=== PATIENT | female | born 1940 | race Caucasian/White ===

== ENCOUNTER → 2019-10-28 09:41 | Outpatient (BNVA) | payer MEDICARE, OTHER, SELFPAY | PROVIDERS: Family Provider Family Medicine; PCP Family Medicine; Visit Provider Anesthesiology | DX: M25.512 Pain in left shoulder (principal); M79.602 Pain in left arm; M79.601 Pain in right arm; M50.00 Cervical disc disorder with myelopathy, unspecified cervical region; M48.061 Spinal stenosis, lumbar region without neurogenic claudication; M51.36 Other intervertebral disc degeneration, lumbar region; M54.10 Radiculopathy, site unspecified; M17.11 Unilateral primary osteoarthritis, right knee; M17.12 Unilateral primary osteoarthritis, left knee; Z79.891 Long term (current) use of opiate analgesic | CPT/HCPCS: 99214 ==

== ENCOUNTER 2019-12-05 09:48 | Outpatient (CLI) | payer MEDICARE, OTHER, SELFPAY ==
--- NOTE | 2019-12-05 09:53 | FL_ITS ---
WS: [id number] MODIFIED BARIUM SWALLOW TECHNIQUE: Modified barium swallow with speech therapy using multiple consistencies. FLUOROSCOPY TIME: 1.6 minutes. CLINICAL INFORMATION: Other dysphagia COMPARISON: None. FINDINGS: Multiple consistencies utilized. No difficulties with barium tablet. Normal oropharyngeal phase. No e vidence of aspiration or penetration. Normal barium swallow. FL/FL barium swallow modifd [id number] IMPRESSION: Normal barium swallow
== END 2019-12-05 09:49 | disposition home or self-care (01) ==
LOC: US 09:49
PROVIDERS: Family Provider Family Medicine; PCP Family Medicine; Visit Provider Specialist
DX: R13.19 Other dysphagia (principal); J37.0 Chronic laryngitis
CPT/HCPCS: 74230; 92611

== ENCOUNTER → 2019-12-16 10:52 | Outpatient (BNVA) | payer MEDICARE, OTHER, SELFPAY | PROVIDERS: Family Provider Family Medicine; PCP Family Medicine; Visit Provider Anesthesiology | DX: G89.29 Other chronic pain (principal); M25.512 Pain in left shoulder; M54.10 Radiculopathy, site unspecified; M79.601 Pain in right arm; M17.0 Bilateral primary osteoarthritis of knee; M50.00 Cervical disc disorder with myelopathy, unspecified cervical region; M48.061 Spinal stenosis, lumbar region without neurogenic claudication; M51.36 Other intervertebral disc degeneration, lumbar region; Z79.891 Long term (current) use of opiate analgesic | CPT/HCPCS: 99214 ==

== ENCOUNTER → 2020-03-03 09:51 | Outpatient (BNVA) | payer MEDICARE, OTHER, SELFPAY | PROVIDERS: Family Provider Family Medicine; PCP Family Medicine; Visit Provider Anesthesiology | DX: G89.29 Other chronic pain (principal); M48.061 Spinal stenosis, lumbar region without neurogenic claudication; M51.36 Other intervertebral disc degeneration, lumbar region; M54.9 Dorsalgia, unspecified; M54.10 Radiculopathy, site unspecified; M50.00 Cervical disc disorder with myelopathy, unspecified cervical region; M17.0 Bilateral primary osteoarthritis of knee; M79.601 Pain in right arm; M25.512 Pain in left shoulder; Z79.891 Long term (current) use of opiate analgesic | CPT/HCPCS: 99214 ==

== ENCOUNTER → 2020-04-14 09:23 | Outpatient (BNVA) | payer MEDICARE, OTHER, SELFPAY | PROVIDERS: Family Provider Family Medicine; PCP Family Medicine; Visit Provider Nurse Practitioner | DX: M54.9 Dorsalgia, unspecified (principal); M54.2 Cervicalgia; M54.10 Radiculopathy, site unspecified; Z79.891 Long term (current) use of opiate analgesic | CPT/HCPCS: 99213 ==

== ENCOUNTER → 2020-06-25 08:17 | Outpatient (BNVA) | payer MEDICARE, OTHER, SELFPAY | PROVIDERS: Family Provider Family Medicine; PCP Family Medicine; Visit Provider Nurse Practitioner | DX: G89.29 Other chronic pain (principal); M51.36 Other intervertebral disc degeneration, lumbar region; M48.061 Spinal stenosis, lumbar region without neurogenic claudication; M54.10 Radiculopathy, site unspecified; M54.9 Dorsalgia, unspecified; M17.0 Bilateral primary osteoarthritis of knee; M50.00 Cervical disc disorder with myelopathy, unspecified cervical region; M25.512 Pain in left shoulder; Z79.891 Long term (current) use of opiate analgesic | CPT/HCPCS: 99213; 99214 ==

== ENCOUNTER → 2020-09-02 08:29 | Outpatient (BNVA) | payer MEDICARE, OTHER, SELFPAY | PROVIDERS: Family Provider Family Medicine; PCP Family Medicine; Visit Provider Anesthesiology | DX: M54.9 Dorsalgia, unspecified (principal); Z79.891 Long term (current) use of opiate analgesic; M54.10 Radiculopathy, site unspecified; M79.601 Pain in right arm; M54.2 Cervicalgia; G89.29 Other chronic pain; M48.061 Spinal stenosis, lumbar region without neurogenic claudication; M51.36 Other intervertebral disc degeneration, lumbar region; M17.0 Bilateral primary osteoarthritis of knee | CPT/HCPCS: 99214 ==

== ENCOUNTER → 2020-11-02 10:54 | Outpatient (BNVA) | payer MEDICARE, OTHER, SELFPAY | PROVIDERS: Family Provider Family Medicine; PCP Family Medicine; Visit Provider Anesthesiology | DX: G89.29 Other chronic pain (principal); M50.00 Cervical disc disorder with myelopathy, unspecified cervical region; M54.10 Radiculopathy, site unspecified; M51.36 Other intervertebral disc degeneration, lumbar region; M48.061 Spinal stenosis, lumbar region without neurogenic claudication; M54.9 Dorsalgia, unspecified; M17.0 Bilateral primary osteoarthritis of knee; Z79.891 Long term (current) use of opiate analgesic | CPT/HCPCS: 99213 ==

== ENCOUNTER → 2020-12-30 09:40 | Outpatient (BNVA) | payer MEDICARE, OTHER, SELFPAY | PROVIDERS: Family Provider Family Medicine; PCP Family Medicine; Visit Provider Anesthesiology | DX: G89.29 Other chronic pain (principal); M50.00 Cervical disc disorder with myelopathy, unspecified cervical region; M25.512 Pain in left shoulder; M54.10 Radiculopathy, site unspecified; M54.9 Dorsalgia, unspecified; M17.0 Bilateral primary osteoarthritis of knee; M79.601 Pain in right arm; M48.061 Spinal stenosis, lumbar region without neurogenic claudication; M51.36 Other intervertebral disc degeneration, lumbar region; Z79.891 Long term (current) use of opiate analgesic | CPT/HCPCS: 99214 ==

== ENCOUNTER 2021-01-19 14:30 | Outpatient (CLI) | payer MEDICARE, OTHER, SELFPAY ==
--- NOTE | 2021-01-19 14:40 | XR_ITS ---
WS: [id number] Exam: XR chest 2V* [id number] Date/Time of Exam: 01/19/2021 2:42 PM Reason For Exam: cholecystitis No priors. The lungs are hyperinflated and clear. Normal cardiomediastinal structures and bony elements. No pleu ral effusions. XR/XR chest 2V* [id number] IMPRESSION: 1. Pulmonary hyperinflation. 2. No acute process.
--- NOTE | 2021-01-19 14:40 | US_ITS ---
WS: [id number] RIGHT UPPER QUADRANT ULTRASOUND HISTORY: Cholecystitis. COMPARISON: None available. Liver: 11.6 cm in length. Liver is small and shrunken. Border of the liver is irregular nodules suspi cious for cirrhosis. There are multiple cystic masses in the liver. The largest cyst measures 4.2 x 3 .6 cm in the RIGHT lobe. No solid mass or bile duct dilatation. Gallbladder: Normally distended gallbladder with no stones or wall thickening. CBD: 0.4 cm Pancreas: Tail is obscured. The remaining pancreas is negative. Right kidney: 10.6 cm in length. Normal size and echogenicity. No hydronephrosis or mass. Aorta and IVC: Unremarkable abdominal aorta and IVC. No ascites. US/US abdomen limited [id number] IMPRESSION: 1. Negative gallbladder. No stones or bile duct dilatation. 2. Numerous hepatic cysts and changes suspicious for cirrhosis.
== END 2021-01-19 14:31 | disposition home or self-care (01) ==
LOC: RAD 14:35
PROVIDERS: PCP Family Medicine; Visit Provider Family Medicine
DX: K81.9 Cholecystitis, unspecified (principal); M54.89 Other dorsalgia; K76.89 Other specified diseases of liver
CPT/HCPCS: 71046; 76705

== ENCOUNTER 2021-01-27 09:20 | Outpatient (CLI) | payer MEDICARE, OTHER, SELFPAY ==
--- NOTE | 2021-01-27 09:31 | NM_ITS ---
WS: [id number] NUCLEAR MEDICINE HIDA SCAN CLINICAL INFORMATION: CHOLECYSTITIS TECHNIQUE: Following intravenous administration of 7.4 mCi of technetium 99m mebrofenin, images of th e abdomen were obtained over the course of 60 minutes. Next, gallbladder ejection fraction was determ ined by obtaining preprandial and one-hour postprandial images of the gallbladder following oral rubin stion of Ensure. COMPARISON: Ultrasound January 19, 2021 FINDINGS: Normal hepatic uptake at 5 minutes. Common bile duct and small bowel activity is visualized. Gallblad randell is visualized by one hour. No evidence of acute cholecystitis. Gallbladder ejection fraction 99% within normal limits. No evidence of chronic cholecystitis. NM/NM hepatobiliary w phar* [id number] IMPRESSION: 1. No evidence of acute or chronic cholecystitis. 2. Normal gallbladder ejection fraction 99% within normal limits.
== END 2021-01-27 09:21 | disposition home or self-care (01) ==
LOC: RAD 09:25
PROVIDERS: PCP Family Medicine; Visit Provider Family Medicine
DX: K81.9 Cholecystitis, unspecified (principal)
CPT/HCPCS: 78227; A9537

== ENCOUNTER 2021-02-11 11:09 | Outpatient (CLI) | payer MEDICARE, OTHER, SELFPAY ==
--- NOTE | 2021-02-11 11:16 | CT_ITS ---
WS: [id number] CT scan of the abdomen with IV contrast. Additional two-dimensional coronal and sagittal reconstruct ion was performed. 02/11/2021 Clinical Data: CIRRHOSIS, LIVER Comparison: None. DLP: 802.[address] scans at [facility] use at least one of these dose optimization techniques: automat ed exposure control; mA and/or kV adjustment per patient size (includes targeted exams where dose is matched to clinical indication); or iterative reconstruction. Findings: The lower lungs show no nodules, masses or effusions. There is mitral valve calcification. The liver shows multiple cysts throughout. The largest hepatic cyst is 4.5 cm in the posterior aspect of the right lobe. The portal vein shows normal flow. The gallbladder, spleen, adrenal glands and pa ncreas are normal. The kidneys show equal bilateral contrast excretion with several cysts of the left kidney. Right kidn ey has only a few small cysts. No hydronephrosis or renal calculi are seen. No abscess, adenopathy, a scites, mass, obstruction or free air is seen. The abdominal aorta is normal in size with calcification in the wall. No appendicitis or diverticulit is is seen. The stomach, small bowel and visualized colon are unremarkable. The bones of the thorax and lumbar spine show osteoarthritic changes along with a loss of disc space at L4-L5 CT/CT abdomen w con* [id number] Impression: 1. Multiple liver cysts and multiple cysts of the kidneys, this may be a varian t of polycystic disease of the liver and kidneys. 2. Negative for acute intra-abdominal abnormalities. 2.
[2021-02-11 12:36] LABS: Blood Urea Nitrogen 10 mg/dL (8-23)
[2021-02-11] MEDS: iodixanol 320 mg/mL 100mL Btl IV (12:36)
== END 2021-02-11 11:10 | disposition home or self-care (01) ==
PROVIDERS: PCP Family Medicine; Visit Provider Family Medicine
DX: K74.60 Unspecified cirrhosis of liver (principal); K76.89 Other specified diseases of liver; Q61.02 Congenital multiple renal cysts
CPT/HCPCS: 74160; 82565; 84520; Q9967

== ENCOUNTER → 2021-03-01 10:52 | Outpatient (BNVA) | payer MEDICARE, OTHER, SELFPAY | PROVIDERS: PCP Family Medicine; Visit Provider Anesthesiology | DX: G89.29 Other chronic pain (principal); M54.9 Dorsalgia, unspecified; M50.00 Cervical disc disorder with myelopathy, unspecified cervical region; M51.36 Other intervertebral disc degeneration, lumbar region; M48.061 Spinal stenosis, lumbar region without neurogenic claudication; M54.10 Radiculopathy, site unspecified; M17.0 Bilateral primary osteoarthritis of knee; Z79.891 Long term (current) use of opiate analgesic | CPT/HCPCS: 99214 ==

== ENCOUNTER → 2021-04-26 10:17 | Outpatient (BNVA) | payer MEDICARE, OTHER, SELFPAY | PROVIDERS: PCP Family Medicine; Visit Provider Nurse Practitioner | DX: G89.29 Other chronic pain (principal); M48.061 Spinal stenosis, lumbar region without neurogenic claudication; M51.36 Other intervertebral disc degeneration, lumbar region; M50.00 Cervical disc disorder with myelopathy, unspecified cervical region; M54.10 Radiculopathy, site unspecified; M25.512 Pain in left shoulder; M17.11 Unilateral primary osteoarthritis, right knee; M17.12 Unilateral primary osteoarthritis, left knee; Z79.891 Long term (current) use of opiate analgesic | CPT/HCPCS: 99212; 99213 ==

== ENCOUNTER → 2021-07-05 10:24 | Outpatient (BNVA) | payer MEDICARE, OTHER, SELFPAY | PROVIDERS: PCP Family Medicine; Visit Provider Anesthesiology | DX: G89.29 Other chronic pain (principal); M50.00 Cervical disc disorder with myelopathy, unspecified cervical region; M48.061 Spinal stenosis, lumbar region without neurogenic claudication; M51.36 Other intervertebral disc degeneration, lumbar region; M54.10 Radiculopathy, site unspecified; K76.89 Other specified diseases of liver; Z79.891 Long term (current) use of opiate analgesic | CPT/HCPCS: 99214 ==

== ENCOUNTER → 2021-09-27 11:01 | Outpatient (BNVA) | payer MEDICARE, OTHER, SELFPAY | PROVIDERS: PCP Family Medicine; Visit Provider Anesthesiology | DX: G89.29 Other chronic pain (principal); M50.00 Cervical disc disorder with myelopathy, unspecified cervical region; M48.061 Spinal stenosis, lumbar region without neurogenic claudication; M51.36 Other intervertebral disc degeneration, lumbar region; M54.10 Radiculopathy, site unspecified; Z79.891 Long term (current) use of opiate analgesic | CPT/HCPCS: 99214 ==

== ENCOUNTER → 2022-01-02 10:39 | Outpatient (BNVA) | payer MEDICARE, OTHER, SELFPAY | PROVIDERS: PCP Family Medicine; Visit Provider Anesthesiology Pain Medicine | DX: G89.29 Other chronic pain (principal); M51.36 Other intervertebral disc degeneration, lumbar region; M48.061 Spinal stenosis, lumbar region without neurogenic claudication; M54.16 Radiculopathy, lumbar region; M50.00 Cervical disc disorder with myelopathy, unspecified cervical region; M17.0 Bilateral primary osteoarthritis of knee; Z79.891 Long term (current) use of opiate analgesic | CPT/HCPCS: 99205; 99215 ==

== ENCOUNTER → 2022-01-17 09:35 | Outpatient (BNVA) | payer MEDICARE, OTHER, SELFPAY | PROVIDERS: PCP Family Medicine; Visit Provider Anesthesiology Pain Medicine | DX: M51.36 Other intervertebral disc degeneration, lumbar region; G89.29 Other chronic pain; M48.061 Spinal stenosis, lumbar region without neurogenic claudication; M50.00 Cervical disc disorder with myelopathy, unspecified cervical region; M17.0 Bilateral primary osteoarthritis of knee; M54.10 Radiculopathy, site unspecified; M79.604 Pain in right leg; M79.605 Pain in left leg; Z79.891 Long term (current) use of opiate analgesic | CPT/HCPCS: 99214 ==

== ENCOUNTER 2022-01-19 08:37 | Outpatient (CLI) | payer MEDICARE, OTHER, SELFPAY ==
--- NOTE | 2022-01-19 09:00 | CT_ITS ---
WS: [id number] CT LUMBAR SPINE TECHNIQUE: Noncontrast CT of the lumbar spine with coronal and sagittal reformatted images. CLINICAL INFORMATION: M54.16 - Radiculopathy, lumbar region COMPARISON: CT lumbar November 20, 2013 and MRI lumbar August 18, 2014 DLP: 1546.[address] scans at [facility] use at least one of these dose optimization techniques: automated e xposure control; mA and/or kV adjustment per patient size (includes targeted exams where dose is matc hed to clinical indication); or iterative reconstruction. FINDINGS: Mild lumbar curve convex LEFT. No acute compression. Chronic interbody bony fusion L4-L5 with complet e loss of the disc space. Grade 1 anterolisthesis measuring 7 mm appears progressed compared to 2013. Prior postoperative herbert es L4-L5 Remote laminectomy LEFT L4-L5. L1-L2: LEFT foraminal protrusion with osteophytic ridging impinges the exiting LEFT L1 nerve root wit h moderate LEFT foraminal narrowing progressed from previous. Spinal canal and foramen are patent. Mi ld facet arthropathy. L2-L3: Mild disc bulging and osteophytic ridging. Moderate facet arthropathy with ligamentum flavum h ypertrophy. Moderate central canal stenosis impinges the subarticular recess. Severe LEFT and mild to moderate RIGHT foraminal narrowing. Moderate facet arthropathy. L3-L4: Shallow central disc protrusion in combination with facet arthropathy ligamentum flavum hypert rophy results in severe central canal stenosis. Moderate bilateral foraminal narrowing impinges the e xiting L3 nerve roots bilaterally. L4-L5: Grade 1 anterolisthesis. Moderate to severe central canal stenosis. Prior LEFT hemilaminectomy . Moderate RIGHT bony foraminal narrowing. LEFT foramen is patent. Moderate to advanced facet arthrop athy. L5-S1: Mild annular bulging with osteophytic ridging. Mild LEFT and no significant RIGHT foraminal na rrowing. Mild central canal stenosis. Mild facet arthropathy. Lung bases are well aerated. Adrenal glands are normal. Partially visualized Hepatic cysts. LEFT stephy l cysts partially visualized. Visualized pelvic bony structures: Normal. Paravertebral soft tissues: Normal. CT/CT lumbar spine wo con* [id number] IMPRESSION: 1. Moderate central canal stenosis L2-L3 and severe central canal stenosis L3- L4 due to disc bulging with facet arthropathy ligamentum flavum flavum hypertro phy. Moderate to severe central canal stenosis L4-L5. 2. Prior remote laminectomy LEFT L4-L5. 3. Multilevel moderate to severe bony foraminal narrowing worse at LEFT L1-L2, LEFT L2-L3, bilateral L3-L4, and RIGHT L4-L5. 4. Disc space narrowing at L1-L2, L2-L3 and L3-L4 have progressed compared to previous. Grade 1 anterolisthesis L4 on L5 measuring 7 mm has progressed.
== END 2022-01-19 08:38 | disposition home or self-care (01) ==
LOC: RAD 08:38
PROVIDERS: PCP Family Medicine; Visit Provider Anesthesiology Pain Medicine
DX: M54.16 Radiculopathy, lumbar region (principal)
CPT/HCPCS: 72131

== ENCOUNTER → 2022-02-22 09:40 | Outpatient (BNVA) | payer MEDICARE, OTHER, SELFPAY | PROVIDERS: PCP Family Medicine; Visit Provider Anesthesiology Pain Medicine | DX: G89.29 Other chronic pain (principal); M51.36 Other intervertebral disc degeneration, lumbar region; M48.061 Spinal stenosis, lumbar region without neurogenic claudication; M50.00 Cervical disc disorder with myelopathy, unspecified cervical region; M54.10 Radiculopathy, site unspecified; M17.0 Bilateral primary osteoarthritis of knee; Z79.891 Long term (current) use of opiate analgesic | CPT/HCPCS: 99214 ==

== ENCOUNTER → 2022-03-02 13:26 | Outpatient (BNVA) | payer MEDICARE, OTHER, SELFPAY | PROVIDERS: PCP Family Medicine; Visit Provider Anesthesiology Pain Medicine | DX: Z79.891 Long term (current) use of opiate analgesic (principal); M47.816 Spondylosis without myelopathy or radiculopathy, lumbar region | CPT/HCPCS: 64493; 64494; 64495; J3490 ==

== ENCOUNTER → 2022-03-16 13:35 | Outpatient (BNVA) | payer MEDICARE, OTHER, SELFPAY | PROVIDERS: PCP Family Medicine; Visit Provider Anesthesiology Pain Medicine | DX: M54.2 Cervicalgia (principal); Z79.891 Long term (current) use of opiate analgesic; M47.816 Spondylosis without myelopathy or radiculopathy, lumbar region | CPT/HCPCS: 64493; 64494; 64495; J3490 ==

== ENCOUNTER → 2022-04-04 09:26 | Outpatient (BNVA) | payer MEDICARE, OTHER, SELFPAY | PROVIDERS: PCP Family Medicine; Visit Provider Anesthesiology Pain Medicine | DX: G89.29 Other chronic pain (principal); M51.36 Other intervertebral disc degeneration, lumbar region; M48.061 Spinal stenosis, lumbar region without neurogenic claudication; M54.16 Radiculopathy, lumbar region; M50.00 Cervical disc disorder with myelopathy, unspecified cervical region; M17.0 Bilateral primary osteoarthritis of knee; M79.604 Pain in right leg; M79.605 Pain in left leg; Z79.891 Long term (current) use of opiate analgesic | CPT/HCPCS: 99214 ==

== ENCOUNTER → 2022-04-19 13:17 | Outpatient (BNVA) | payer MEDICARE, OTHER, SELFPAY | PROVIDERS: PCP Family Medicine; Visit Provider Anesthesiology Pain Medicine | DX: Z79.891 Long term (current) use of opiate analgesic (principal); M47.816 Spondylosis without myelopathy or radiculopathy, lumbar region | CPT/HCPCS: 64635; 64636; J1030 ==

== ENCOUNTER → 2022-05-08 12:54 | Outpatient (BNVA) | payer MEDICARE, OTHER, SELFPAY | PROVIDERS: PCP Family Medicine; Visit Provider Anesthesiology Pain Medicine | DX: Z79.891 Long term (current) use of opiate analgesic (principal); M47.816 Spondylosis without myelopathy or radiculopathy, lumbar region | CPT/HCPCS: 64635; 64636; J1030 ==

== ENCOUNTER → 2022-05-22 10:26 | Outpatient (BNVA) | payer MEDICARE, OTHER, SELFPAY | PROVIDERS: PCP Family Medicine; Visit Provider Anesthesiology Pain Medicine | DX: G89.29 Other chronic pain; M54.16 Radiculopathy, lumbar region; M51.36 Other intervertebral disc degeneration, lumbar region; M48.061 Spinal stenosis, lumbar region without neurogenic claudication; M50.00 Cervical disc disorder with myelopathy, unspecified cervical region; M17.0 Bilateral primary osteoarthritis of knee | CPT/HCPCS: 99214 ==

== ENCOUNTER → 2022-07-03 10:37 | Outpatient (BNVA) | payer MEDICARE, OTHER, SELFPAY | PROVIDERS: PCP Family Medicine; Visit Provider Anesthesiology Pain Medicine | DX: G89.29 Other chronic pain (principal); M51.36 Other intervertebral disc degeneration, lumbar region; M48.061 Spinal stenosis, lumbar region without neurogenic claudication; M50.00 Cervical disc disorder with myelopathy, unspecified cervical region; M54.10 Radiculopathy, site unspecified; M17.0 Bilateral primary osteoarthritis of knee | CPT/HCPCS: 99214 ==

== ENCOUNTER → 2022-07-31 11:20 | Outpatient (BNVA) | payer MEDICARE, OTHER, SELFPAY | PROVIDERS: PCP Family Medicine; Visit Provider Anesthesiology Pain Medicine | DX: G89.29 Other chronic pain (principal); M51.36 Other intervertebral disc degeneration, lumbar region; M48.061 Spinal stenosis, lumbar region without neurogenic claudication; M50.00 Cervical disc disorder with myelopathy, unspecified cervical region; M54.10 Radiculopathy, site unspecified; M17.0 Bilateral primary osteoarthritis of knee | CPT/HCPCS: 99214 ==

== ENCOUNTER → 2022-08-28 10:16 | Outpatient (BNVA) | payer MEDICARE, OTHER, SELFPAY | PROVIDERS: PCP Family Medicine; Visit Provider Anesthesiology Pain Medicine | DX: G89.29 Other chronic pain (principal); M51.36 Other intervertebral disc degeneration, lumbar region; M48.061 Spinal stenosis, lumbar region without neurogenic claudication; M50.00 Cervical disc disorder with myelopathy, unspecified cervical region; M17.0 Bilateral primary osteoarthritis of knee; M54.10 Radiculopathy, site unspecified | CPT/HCPCS: 99214 ==

== ENCOUNTER → 2022-10-05 11:42 | Outpatient (BNVA) | payer MEDICARE, OTHER, SELFPAY | PROVIDERS: PCP Family Medicine; Visit Provider Anesthesiology Pain Medicine | DX: M50.00 Cervical disc disorder with myelopathy, unspecified cervical region (principal); G89.29 Other chronic pain; M51.36 Other intervertebral disc degeneration, lumbar region; M48.061 Spinal stenosis, lumbar region without neurogenic claudication; M54.10 Radiculopathy, site unspecified; M17.11 Unilateral primary osteoarthritis, right knee; M17.12 Unilateral primary osteoarthritis, left knee; Z79.891 Long term (current) use of opiate analgesic | CPT/HCPCS: 72040; 99214 ==

== ENCOUNTER → 2022-11-02 11:12 | Outpatient (BNVA) | payer MEDICARE, OTHER, SELFPAY | PROVIDERS: PCP Family Medicine; Visit Provider Anesthesiology Pain Medicine | DX: G89.29 Other chronic pain (principal); M51.36 Other intervertebral disc degeneration, lumbar region; M48.061 Spinal stenosis, lumbar region without neurogenic claudication; M50.00 Cervical disc disorder with myelopathy, unspecified cervical region; M17.0 Bilateral primary osteoarthritis of knee; M54.10 Radiculopathy, site unspecified | CPT/HCPCS: 99214 ==

== ENCOUNTER → 2022-12-12 11:00 | Outpatient (BNVA) | payer MEDICARE, OTHER, SELFPAY | PROVIDERS: PCP Family Medicine; Visit Provider Anesthesiology Pain Medicine | DX: G89.29 Other chronic pain (principal); M51.36 Other intervertebral disc degeneration, lumbar region; M48.061 Spinal stenosis, lumbar region without neurogenic claudication; M50.00 Cervical disc disorder with myelopathy, unspecified cervical region | CPT/HCPCS: 99214 ==

== ENCOUNTER → 2022-12-18 09:19 | Outpatient (BNVA) | payer MEDICARE, OTHER, SELFPAY | PROVIDERS: PCP Family Medicine; Visit Provider Specialist | DX: G56.03 Carpal tunnel syndrome, bilateral upper limbs (principal) | CPT/HCPCS: 95910; 95912 ==

== ENCOUNTER → 2023-01-08 09:45 | Outpatient (BNVA) | payer MEDICARE, OTHER, SELFPAY | PROVIDERS: PCP Family Medicine; Visit Provider Anesthesiology Pain Medicine | DX: G89.29 Other chronic pain (principal); M51.36 Other intervertebral disc degeneration, lumbar region; M48.061 Spinal stenosis, lumbar region without neurogenic claudication; M17.0 Bilateral primary osteoarthritis of knee; M54.16 Radiculopathy, lumbar region; M50.00 Cervical disc disorder with myelopathy, unspecified cervical region | CPT/HCPCS: 99214 ==

== ENCOUNTER → 2023-01-22 13:06 | Outpatient (BNVA) | payer MEDICARE, OTHER, SELFPAY | PROVIDERS: PCP Family Medicine; Visit Provider Family Medicine | DX: G56.03 Carpal tunnel syndrome, bilateral upper limbs (principal); K74.60 Unspecified cirrhosis of liver; M51.36 Other intervertebral disc degeneration, lumbar region; M54.2 Cervicalgia; M54.9 Dorsalgia, unspecified; G89.29 Other chronic pain; Z13.6 Encounter for screening for cardiovascular disorders | CPT/HCPCS: 80053; 80061; 85025 ==

== ENCOUNTER → 2023-02-13 09:49 | Outpatient (BNVA) | payer MEDICARE, OTHER, SELFPAY | PROVIDERS: PCP Family Medicine; Visit Provider Anesthesiology Pain Medicine | DX: G89.29 Other chronic pain (principal); M51.36 Other intervertebral disc degeneration, lumbar region; M48.061 Spinal stenosis, lumbar region without neurogenic claudication; M50.00 Cervical disc disorder with myelopathy, unspecified cervical region; M54.16 Radiculopathy, lumbar region; M17.0 Bilateral primary osteoarthritis of knee | CPT/HCPCS: 99214 ==

== ENCOUNTER → 2023-03-13 10:03 | Outpatient (BNVA) | payer MEDICARE, OTHER, SELFPAY | PROVIDERS: PCP Family Medicine; Visit Provider Anesthesiology Pain Medicine | DX: G89.29 Other chronic pain (principal); M51.36 Other intervertebral disc degeneration, lumbar region; M48.061 Spinal stenosis, lumbar region without neurogenic claudication; M50.00 Cervical disc disorder with myelopathy, unspecified cervical region; M17.0 Bilateral primary osteoarthritis of knee; M54.16 Radiculopathy, lumbar region | CPT/HCPCS: 99214 ==

== ENCOUNTER → 2023-04-11 10:37 | Outpatient (BNVA) | payer MEDICARE, OTHER, SELFPAY | PROVIDERS: PCP Family Medicine; Visit Provider Anesthesiology Pain Medicine | DX: G89.29 Other chronic pain (principal); M51.36 Other intervertebral disc degeneration, lumbar region; M48.061 Spinal stenosis, lumbar region without neurogenic claudication; M50.00 Cervical disc disorder with myelopathy, unspecified cervical region; M17.0 Bilateral primary osteoarthritis of knee; M54.16 Radiculopathy, lumbar region; M47.892 Other spondylosis, cervical region; M46.92 Unspecified inflammatory spondylopathy, cervical region | CPT/HCPCS: 99213 ==

== ENCOUNTER → 2023-05-16 10:24 | Outpatient (BNVA) | payer MEDICARE, OTHER, SELFPAY | PROVIDERS: PCP Family Medicine; Visit Provider Anesthesiology Pain Medicine | DX: M50.00 Cervical disc disorder with myelopathy, unspecified cervical region (principal); G89.29 Other chronic pain; M51.36 Other intervertebral disc degeneration, lumbar region; M48.061 Spinal stenosis, lumbar region without neurogenic claudication; M17.0 Bilateral primary osteoarthritis of knee; M54.16 Radiculopathy, lumbar region | CPT/HCPCS: 99214 ==

== ENCOUNTER → 2023-05-22 08:50 | Outpatient (BNVA) | payer MEDICARE, OTHER, SELFPAY | PROVIDERS: PCP Family Medicine; Visit Provider Anesthesiology Pain Medicine | DX: M79.18 Myalgia, other site (principal); G89.29 Other chronic pain; M54.2 Cervicalgia; M51.36 Other intervertebral disc degeneration, lumbar region; M48.061 Spinal stenosis, lumbar region without neurogenic claudication; M17.0 Bilateral primary osteoarthritis of knee | CPT/HCPCS: 20553; 99214; J1030; J3490 ==

== ENCOUNTER 2023-05-25 11:38 | Outpatient (CLI) | payer MEDICARE, OTHER, SELFPAY ==
--- NOTE | 2023-05-25 11:46 | XR_ITS ---
WS: [id number] Exam: [place] [id number] Date/Time of Exam: 05/25/2023 11:46 AM Reason For Exam: M89.8X1 - Other specified disorders of bone, shoulder No fracture or dislocation noted. Degenerative change and arthrosis at the AC joint. Soft tissues are unremarkable. IMPRESSION: 1. No acute scapular fracture or dislocation. Degenerative changes at the AC joint.
== END 2023-05-25 11:39 | disposition home or self-care (01) ==
LOC: RAD 11:40
PROVIDERS: PCP Family Medicine; Visit Provider Family Medicine
DX: M89.8X1 Other specified disorders of bone, shoulder (principal); M19.012 Primary osteoarthritis, left shoulder
CPT/HCPCS: 73010

== ENCOUNTER 2023-06-07 10:40 | Outpatient (CLI) | payer MEDICARE, OTHER, SELFPAY ==
--- NOTE | 2023-06-07 11:00 | MR_ITS ---
WS: [id number] MRI CERVICAL SPINE NONCONTRAST TECHNIQUE: Sagittal T1, T2 and STIR imaging. Axial T2, gradient, and fiesta imaging. 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 COMPARISON: MRI 2014 FINDINGS: Straightening of the normal cervical lordosis with slight reversal. Moderate spondylitic changes. Dis c osteophyte complexes worse at C4-C5 and C5-C6. Cord signal is normal. C2-C3: Moderate facet arthropathy. Mild LEFT and no significant RIGHT foraminal narrowing. C3-C4: Tiny central disc protrusion. Slight contact of the cervical cord. Advanced RIGHT facet arthro jt. Severe RIGHT bony foraminal narrowing. C4-C5: Central and RIGHT paracentral disc osteophyte protrusion with indentation cervical cord. Mild central canal stenosis. Severe LEFT bony foraminal narrowing. Moderate facet arthropathy. C5-C6: Disc osteophyte complex with indentation on the cervical cord. Moderate central canal stenosis . Severe LEFT and moderate to severe RIGHT bony foraminal narrowing. Moderate facet arthropathy. C6-C7: Disc osteophyte complex with endplate ridging. Moderate central canal stenosis. Severe LEFT gr eater than RIGHT bony foraminal narrowing. Moderate facet arthropathy. C7-T1: Disc osteophyte complex with mild to moderate central canal stenosis. Moderate bilateral bony foraminal narrowing. Visualized brain stem structures: Normal. Prevertebral soft tissues: Normal. Tiny central protrusions in the upper thoracic spine at T1-2 and T2-3 Nodular RIGHT thyroid. IMPRESSION: 1. Moderate spondylitic changes with straightening and slight reversal normal cervical lordosis. 2. Moderate central canal stenosis C5-C6 and C6-C7 with slight indentation on the cervical cord. Thi s is similar in appearance to 2014. 3. Mild to moderate central canal stenosis C3-C4 and C4-C5 with small central disc osteophyte protru sions also similar to 2014. 4. Disc space narrowing at C5-C6 and C6-C7 is progressed compared to previous. 5. Multilevel moderate to severe bony foraminal narrowing worse at RIGHT C3-C4, LEFT C4-5, bilateral C5-C6 and bilateral C6-7. 6. Moderate to advanced facet arthropathy worse at RIGHT C3-C4 and RIGHT C4-C5 and moderate facet ar thropathy bilateral C5-C6.
== END 2023-06-07 10:41 | disposition home or self-care (01) ==
LOC: RAD 10:41
PROVIDERS: PCP Family Medicine; Visit Provider Anesthesiology Pain Medicine
DX: M50.020 Cervical disc disorder with myelopathy, mid-cervical region, unspecified level (principal); M25.78 Osteophyte, vertebrae; M47.13 Other spondylosis with myelopathy, cervicothoracic region; M48.03 Spinal stenosis, cervicothoracic region; E04.1 Nontoxic single thyroid nodule
CPT/HCPCS: 72141

== ENCOUNTER → 2023-06-18 09:41 | Outpatient (BNVA) | payer MEDICARE, OTHER, SELFPAY | PROVIDERS: PCP Family Medicine; Visit Provider Anesthesiology Pain Medicine | DX: G89.29 Other chronic pain; M47.812 Spondylosis without myelopathy or radiculopathy, cervical region; M48.02 Spinal stenosis, cervical region; M54.9 Dorsalgia, unspecified | CPT/HCPCS: 99214 ==

== ENCOUNTER 2023-06-29 07:53 | Outpatient (CLI) | payer MEDICARE, OTHER, SELFPAY ==
--- NOTE | 2023-06-29 08:00 | MR_ITS ---
WS: [id number] MRI left scapula with and without contrast. HISTORY: scapula pain not clinically correlated., Evaluate for medial border lesion of the scapula. COMPARISON: Scapula 05/25/2023. TECHNIQUE: Pre and postcontrast imaging is obtained through the scapula as ordered. Moderate to severe AC joint arthritis encroaching upon the supraspinatus tendon. No destructive proce ss involving the scapula. There is no area of abnormal enhancement. Moderate degenerative changes of the glenohumeral joint and surrounding the humeral head. No enhancing soft tissue masses. There is mo derate distention of the subscapularis recess. There is increased edema extending along the subscapul teri muscle and tendon. There is no signal abnormality along the medial border of the scapula. No signal abnormality within t he entire body of the scapula. This study was not protocoled to evaluate the rotator cuff or labrum. There does appear to be abnormal signal in the distal subscapularis tendon. Possible tear. No abnormal enhancement on the postcontrast imaging. IMPRESSION: 1. No signal abnormality or enhancement on the medial border of the scapula in the area of clinical c oncern. 2. Moderate to severe AC joint arthritis encroaching upon the supraspinatus tendon. 3. There is a small amount of edema in the distal subscapularis tendon and subscapularis bursal reces s fluid distention. This study was not protocoled to evaluate the rotator cuff.
[2023-06-29] MEDS: gadobenate dimeglumine 20 mL vial IV (09:07)
== END 2023-06-29 07:54 | disposition home or self-care (01) ==
LOC: RAD 07:54
PROVIDERS: PCP Family Medicine; Visit Provider Family Medicine
DX: M89.8X1 Other specified disorders of bone, shoulder (principal); M19.012 Primary osteoarthritis, left shoulder
CPT/HCPCS: 73220; 73223; A9577

== ENCOUNTER → 2023-07-18 09:55 | Outpatient (BNVA) | payer MEDICARE, OTHER, SELFPAY | PROVIDERS: PCP Family Medicine; Visit Provider Anesthesiology Pain Medicine | DX: G89.29 Other chronic pain; M48.02 Spinal stenosis, cervical region; M47.812 Spondylosis without myelopathy or radiculopathy, cervical region | CPT/HCPCS: 99214 ==

== ENCOUNTER → 2023-08-02 10:13 | Outpatient (BNVA) | payer MEDICARE, OTHER, SELFPAY | PROVIDERS: PCP Family Medicine; Referring Provider Family Medicine; Visit Provider Physician Assistant | DX: M25.512 Pain in left shoulder (principal); Z98.890 Other specified postprocedural states; M50.00 Cervical disc disorder with myelopathy, unspecified cervical region | CPT/HCPCS: 99213 ==

== ENCOUNTER → 2023-08-09 10:54 | Outpatient (BNVA) | payer MEDICARE, OTHER, SELFPAY | PROVIDERS: PCP Family Medicine; Visit Provider Anesthesiology Pain Medicine | DX: G89.29 Other chronic pain; M48.02 Spinal stenosis, cervical region; M54.50 Low back pain, unspecified; M47.812 Spondylosis without myelopathy or radiculopathy, cervical region | CPT/HCPCS: 99214 ==

== ENCOUNTER → 2023-08-21 08:46 | Outpatient (BNVA) | payer MEDICARE, OTHER, SELFPAY | PROVIDERS: PCP Family Medicine; Visit Provider Orthopaedic Surgery | DX: M25.512 Pain in left shoulder; G89.29 Other chronic pain; M48.02 Spinal stenosis, cervical region; M50.30 Other cervical disc degeneration, unspecified cervical region | CPT/HCPCS: 72050; 99214 ==

== ENCOUNTER → 2023-10-01 08:53 | Outpatient (BNVA) | payer MEDICARE, OTHER, SELFPAY | PROVIDERS: PCP Family Medicine; Visit Provider Anesthesiology Pain Medicine | DX: G89.29 Other chronic pain; M48.02 Spinal stenosis, cervical region; M47.812 Spondylosis without myelopathy or radiculopathy, cervical region; M54.9 Dorsalgia, unspecified | CPT/HCPCS: 99214 ==

== ENCOUNTER → 2023-11-01 09:16 | Outpatient (BNVA) | payer MEDICARE, OTHER, SELFPAY | PROVIDERS: PCP Family Medicine; Visit Provider Anesthesiology Pain Medicine | DX: M54.9 Dorsalgia, unspecified; G89.29 Other chronic pain; M48.02 Spinal stenosis, cervical region; M47.812 Spondylosis without myelopathy or radiculopathy, cervical region | CPT/HCPCS: 99214 ==

== ENCOUNTER → 2023-11-29 09:20 | Outpatient (BNVA) | payer MEDICARE, OTHER, SELFPAY | PROVIDERS: PCP Family Medicine; Visit Provider Anesthesiology Pain Medicine | DX: M54.9 Dorsalgia, unspecified; G89.29 Other chronic pain; M48.02 Spinal stenosis, cervical region; M47.812 Spondylosis without myelopathy or radiculopathy, cervical region | CPT/HCPCS: 99214 ==

== ENCOUNTER → 2023-12-25 15:18 | Outpatient (BNVA) | payer MEDICARE, OTHER, SELFPAY | PROVIDERS: PCP Family Medicine; Referring Provider Anesthesiology Pain Medicine; Visit Provider Specialist | DX: M25.512 Pain in left shoulder (principal); G56.00 Carpal tunnel syndrome, unspecified upper limb; G62.9 Polyneuropathy, unspecified; G89.29 Other chronic pain; M79.601 Pain in right arm; G56.03 Carpal tunnel syndrome, bilateral upper limbs; M50.00 Cervical disc disorder with myelopathy, unspecified cervical region | CPT/HCPCS: 95910 ==

== ENCOUNTER → 2023-12-27 09:13 | Outpatient (BNVA) | payer MEDICARE, OTHER, SELFPAY | PROVIDERS: PCP Family Medicine; Visit Provider Anesthesiology Pain Medicine | DX: G56.20 Lesion of ulnar nerve, unspecified upper limb (principal); M54.9 Dorsalgia, unspecified; G89.29 Other chronic pain; M48.02 Spinal stenosis, cervical region; M47.816 Spondylosis without myelopathy or radiculopathy, lumbar region | CPT/HCPCS: 99214 ==

== ENCOUNTER → 2024-02-05 09:20 | Outpatient (BNVA) | payer MEDICARE, OTHER, SELFPAY | PROVIDERS: PCP Family Medicine; Visit Provider Student in an Organized Health Care Education/Training Program | DX: G56.03 Carpal tunnel syndrome, bilateral upper limbs; G56.22 Lesion of ulnar nerve, left upper limb | CPT/HCPCS: 73130; 99213 ==

== ENCOUNTER → 2024-02-07 11:30 | Outpatient (BNVA) | payer MEDICARE, OTHER, SELFPAY | PROVIDERS: PCP Family Medicine; Visit Provider Specialist | DX: G89.29 Other chronic pain; M25.512 Pain in left shoulder; M89.8X1 Other specified disorders of bone, shoulder; G58.7 Mononeuritis multiplex | CPT/HCPCS: 95860; 95870; 99202 ==

== ENCOUNTER → 2024-02-20 09:47 | Outpatient (BNVA) | payer MEDICARE, OTHER, SELFPAY | PROVIDERS: PCP Family Medicine; Visit Provider Anesthesiology Pain Medicine | DX: M48.02 Spinal stenosis, cervical region (principal); M47.812 Spondylosis without myelopathy or radiculopathy, cervical region; G89.29 Other chronic pain | CPT/HCPCS: 99214 ==

== ENCOUNTER → 2024-03-13 10:14 | Outpatient (BNVA) | payer MEDICARE, OTHER, SELFPAY | PROVIDERS: PCP Family Medicine; Visit Provider Anesthesiology Pain Medicine | DX: M54.9 Dorsalgia, unspecified (principal); G89.29 Other chronic pain; M48.02 Spinal stenosis, cervical region; M47.812 Spondylosis without myelopathy or radiculopathy, cervical region | CPT/HCPCS: 99214 ==

== ENCOUNTER → 2024-05-09 12:45 | Outpatient (BNVA) | payer MEDICARE, OTHER, SELFPAY | PROVIDERS: PCP Family Medicine; Visit Provider Specialist | DX: G89.29 Other chronic pain; M25.512 Pain in left shoulder; M89.8X1 Other specified disorders of bone, shoulder; G58.7 Mononeuritis multiplex; M60.9 Myositis, unspecified; G62.9 Polyneuropathy, unspecified | CPT/HCPCS: 36415; 83520; 85651; 86140; 86160; 86162; 86235; 86255; 86376; 86431; 99214 ==

== ENCOUNTER 2024-05-13 11:30 | Inpatient (IN) | payer MEDICARE, OTHER, SELFPAY ==
[2024-05-13] VITALS (15 sets, daily range): BP systolic 110–161; BP diastolic 58–85; PULSE 82–117; RESP 16–20; TEMP 36.8–36.9; O2SAT 94–99; BMI 33.0
--- NOTE | 2024-05-13 11:31 | ECG_ITS ---
[facility] Test Date: 2024-05-13 Pat Name: Gita Stubbs Department: Room: Gender: Female [employer]ic: : [id number] Requested By: Vladimir Sullivan Order Number: [id number] Shruthi MD: Disha Shen M.D. Measurements Intervals [place] Rate: 109 P: 32 AK: 152 QRS: -62 QRSD: 94 T: 33 QT: 345 QTc: 466 Interpretive Statements SINUS TACHYCARDIA LOW QRS VOLTAGE IN PRECORDIAL LEADS [QRS DEFLECTION < 1.0 mV IN CHEST LEADS] LEFT ANTERIOR FASCICULAR BLOCK [QRS AXIS <= -45, QR IN I, RS IN II] POSSIBLE ANTERIOR MYOCARDIAL INFARCTION , OF INDETERMINATE AGE [30 ms Q WAVE IN V3/V4, OR R < 0.2 mV IN V4] No previous ECG available for comparison Electronically Signed On 05-13-2024 23:29:45 CDT by Disha Shen M.D. [id number] f
--- NOTE | 2024-05-13 11:31 | CT_ITS ---
WS: [id number] CT HEAD NONCONTRAST HISTORY: Symptoms of acute stroke TECHNIQUE: Contiguous axial imaging performed through the brain in 2.5 mm imaging. Bone and soft tiss ue windows. Sagittal and coronal reformats reviewed. All CT scans at [facility] use at least one of these dose optimization techniques: automated exposure control; mA and/or kV adjustment per pa tient size (includes targeted exams where dose is matched to clinical indication); or iterative recon struction. DLP: 1096.88 mGy COMPARISON: None available. Imaging artifact through the supratentorial brain. No acute intracranial hemorrhage, midline shift or mass effect. Mild atrophy and small vessel disease. Ventricles: Normal size with no hydrocephalus. No inferior displacement of the cerebellar tonsils. Paranasal sinuses: As visualized are clear. Mastoid air cells: Well pneumatized. Calvarium and scalp: Skull is intact with no soft tissue edema or swelling. Moderate calcification in the intracranial carotid arteries. CT/CT head thrombolytic [id number] IMPRESSION: 1. No acute intracranial hemorrhage or edema. 2. Mild cerebral atrophy and volume loss with mild small vessel ischemic disea se.
--- NOTE | 2024-05-13 11:35 | CT_ITS ---
WS: [id number] CT ANGIOGRAM CEREBRAL AND CAROTID ARTERIES HISTORY: cva TECHNIQUE: CT angiogram is performed of the carotid and cerebral arteries. During arterial injection imaging is obtained from the skull vertex to the aortic arch in 1.25 mm imaging. Coronal and sagittal reformats are submitted. Additional multi planar reformats of the carotid and cerebral arteries are submitted, MIP imaging also reviewed. NASCET criteria utilized. [facility] e at least one of these dose optimization techniques: automated exposure control; mA and/or kV adjust ment per patient size (includes targeted exams where dose is matched to clinical indication); or iter ative reconstruction. CONTRAST: Omnipaque 350; 100 mL IV. DLP: 481.72 mGy.cm COMPARISON: None available. Carotid Angiogram: Right carotid: Common carotid artery: Arises normally from the innominate artery. No significant plaque or stenosis. Internal carotid artery: Minimal plaque. No high-grade stenosis. External carotid artery: Patent. Left carotid: Common carotid artery: Arises normally from the aorta. No significant plaque or stenosis. Internal carotid artery: Minimal plaque. No stenosis. External carotid artery: Patent. Right vertebral artery: Unremarkable. Left vertebral artery: Dominant. No stenosis. Subclavian arteries: No stenosis or significant abnormality. Upper thorax: Normal. Thyroid gland: Mildly enlarged nodular thyroid. Most likely goiter. Osseous structures: Advanced degenerative changes and spondylosis in the cervical spine. CEREBRAL ANGIOGRAM: Intracranial vertebral arteries: Small caliber RIGHT vertebral artery but it is patent. Normal LEFT v ertebral artery. Basilar artery: No significant stenosis or occlusion. No aneurysm. Intracranial Internal carotid arteries: Moderate calcified plaque through the cavernous carotid arter ies approaching 50% stenoses. No occlusions. Middle cerebral arteries: Normal. Anterior cerebral arteries and ACOM: Normal. Posterior cerebral arteries and PCOM's: Normal posterior cerebral arteries. Hypoplastic or absent LEF T posterior communicating artery. Dural venous sinuses are normally enhancing. Mastoid air cells: Normal. Paranasal sinuses: Normal. Calvarium: Normal. CT/CT angio headneck* [id number] IMPRESSION: 1. Minimal atherosclerotic plaque in the cervical carotid arteries. No high-gr stella stenosis. 2. No aneurysms or occlusions in the [place]. 3. Moderate atherosclerotic plaque cavernous carotid arteries approaching 50% stenosis.
[2024-05-13] MEDS: iohexol 350 mg/mL 500 mL Btl (per mL) IV (11:44)
--- NOTE | 2024-05-13 11:50 | XRR_ITS ---
PROCEDURE INFORMATION: Exam: XR Chest Exam date and time: 05/13/2024 11:59 AM Age: 84 years old Clinical indication: Other: AMS TECHNIQUE: Imaging protocol: Radiologic exam of the chest. Views: 1 view. COMPARISON: CR XR chest 2V* [id number] 02/09/2023 12:11 PM FINDINGS: Lungs: No focal consolidation. Mild linear scarring peripheral left lower lung. Mild vascular prominence. Pleural spaces: Unremarkable. No pleural effusion. No pneumothorax. Heart/Mediastinum: Apparent cardiomegaly, accentuated by positioning. Bones/joints: Unremarkable. Other findings: Mild leftward rotation. Lordotic positioning. XR/XR chest 1V portable [id number] IMPRESSION: 1. The lungs are clear. 2. Apparent cardiomegaly is accentuated by positioning.
--- NOTE | 2024-05-13 11:57 | W.ED.NEUROSD ---
HPI - Neuro Symptoms/Deficit General: Chief Complaint: Neuro Symptoms/Deficit Stated Complaint: Stoke Alert Time Seen by Provider: 05/13/24 11:30 Source: EMS Mode of arrival: EMS Limitations: no limitations History of Present Illness: 84-year-old female who is here with EMS she states she has been having some increasing confusion along with weakness in her lower extremities is been going on for 3 days. States she has had multiple minor falls denies any major injuries from her fall states been having some hip pain as well. EMS did states she had some word salad with them here she is answering my questions appropriately but does get confused at times. Associated symptoms: Deny chest pain, headache(s), nausea or vomiting Related Data Home Medications Medication Instructions Recorded Confirmed ibuprofen 200 mg tablet (Motrin IB) 200 mg PO BID PRN Pain 10/28/19 05/13/24 clopidogrel 75 mg tablet 75 mg PO DAILY 05/13/24 05/13/24 Previous Rx's Medication Instructions Recorded acyclovir 5 % topical ointment 1 applic topical 6XD cold sores 7 08/24/23 (Zovirax) days #15 grams acyclovir 400 mg tablet 400 mg PO TID cold sores 7 days 10/11/23 #21 tabs pantoprazole 20 mg tablet,delayed See Rx Instructions .Route 02/13/24 release .COMPLEX #60 tabs prednisone 10 mg tablet 10 mg PO DAILY PRN arthritis 02/25/24 pain/inflammation #90 tabs gabapentin 600 mg tablet 600 mg PO TID 30 days #90 tabs 04/21/24 oxycodone 10 mg tablet 10 mg PO Q6H PRN pain 10 days #120 04/23/24 tabs Allergies Allergy/AdvReac Type Severity Reaction Status Date / Time No Known Allergies Allergy Verified 05/09/24 12:50 Review of Systems Const: Reports: fatigue; Denies: fever(s), chills, body aches or change in appetite ENMT: Denies: throat pain or dental pain Card: Denies: chest pain Resp: Denies: dyspnea GI: Denies: abdominal pain, nausea, vomiting or diarrhea Musc: Denies: neck pain or back pain Skin/Breast: Denies: rash Neuro: Reports: difficulty walking, frequent falls and confusion; Denies: headache(s) PFSH ED PFSH: Medical History (Updated 05/13/24 @ 13:54 by Vladimir Sullivan MD) Chronic left shoulder pain Arthritis Back Pain Doing well on current meds DDD (degenerative disc disease), lumbar Degenerative lumbar spinal stenosis Acquired spondylolisthesis Cervical disc disorder with myelopathy, unspecified cervical region Acute sensory neuropathy Chronic neck and back pain Pain of right upper extremity Degenerative joint disease of both lower legs Radiculopathy, site unspecified Encounter for long-term use of opiate analgesic Surgical History History of knee replacement procedure of left knee History of total right knee replacement Family History Other CAD (coronary artery disease) Hypertension Social History Smoking and tobacco/nicotine status: never used tobacco/nicotine Second hand smoke exposure: No Alcohol intake: never Substance/Drug Use: never NIH stroke score NIHSS: Level Of Consciousness - 1a: 0 Level Of Consciousness Questions - 1b: Both Correct Level Of Consciousness Commands - 1c: Both Correct Best Gaze - 2: Normal Visual Matos - 3: No Visual Loss Facial Palsy - 4: Normal Motor Arm Right - 5: No Drift Motor Arm Left - 5: No Drift Motor Leg Right - 6: No Drift Motor Leg Left - 6: No Drift Limb Ataxia - 7: Absent Sensory - 8: Normal Best Language - 9: No Aphasia Dysarthia - 10: Normal Extinction And Inattention - 11: 0 Score: Total Score: 0 Physical Exam Const: COMMON NORMALS: patient oriented x3 HENMT: COMMON NORMALS: normocephalic and atraumatic HEAD & SCALP: normocephalic and atraumatic Eye: COMMON NORMALS: Equal, round and reactive pupils present and EOMs intact bilaterally PUPIL: Yes Equal, round and reactive pupils present Neck/C-Spine: COMMON NORMALS: full ROM and supple Chest: COMMONS NORMALS: normal inspection of the chest and normal palpation of entire chest wall Resp: COMMON NORMALS: normal respiratory effort, No retractions, No use of accessory muscles and clear to auscultation bilaterally AUSCULTATION: clear to auscultation bilaterally Cardio: COMMON NORMALS: regular rate, regular rhythm and No murmurs present (Cardio) RATE: regular rate RHYTHM: regular rhythm GI: COMMON NORMALS: Normal to inspection, nondistended, normoactive bowel sounds present, Soft to palpation, non-tender and no masses PALPATION: Yes Soft to palpation Extremity: COMMON NORMALS: normal to inspection and full ROM Neuro: COMMON NORMALS: patient oriented x3, moves all extremities and no focal motor deficits Psych: COMMON NORMALS: mental status grossly normal, Normal thought process present and cooperative THOUGHT PROCESS: Normal thought process present Skin: COMMON NORMALS: no rashes or lesions noted and no wounds GENERAL SKIN EXAM: no rashes or lesions noted Course Vital Signs: Vital signs: Vital Signs Temperature 98.2 F 05/13/24 11:37 Pulse Rate 113 H 05/13/24 12:45 Respiratory Rate 19 H 05/13/24 12:45 Blood Pressure 142/58 05/13/24 12:30 Pulse Oximetry 97 05/13/24 12:45 Oxygen Delivery Me thod Room Air 05/13/24 12:30 MDM - Neuro Symptoms/Deficit Medical Decision Making Patient presents here with altered mental status confusion also generalized weakness with frequent falls she is been well-appearing here with normal workup normal head CT she had no slurred speech with me NIH is 0 she still quite confused will admit for observation this time Medical Records I reviewed the patient's medical records. Lab Data I reviewed the patient's lab results. 05/13/24 11:53 05/13/24 11:[address] 05/13/24 11:31 IMPRESSION: 1. No acute intracranial hemorrhage or edema. 2. Mild cerebral atrophy and volume loss with mild small vessel ischemic disease. Head/Neck CTA 05/13/24 11:35 IMPRESSION: 1. Minimal atherosclerotic plaque in the cervical carotid arteries. No high-grade stenosis. 2. No aneurysms or occlusions in the [place]. 3. Moderate atherosclerotic plaque cavernous carotid arteries approaching 50% stenosis. Chest X-Ray 05/13/24 11:50 IMPRESSION: 1. The lungs are clear. 2. Apparent cardiomegaly is accentuated by positioning. Pelvis X-Ray 05/13/24 11:58 IMPRESSION: No acute findings. Laboratory Results WBC 8.99 10^3/uL (3.29-11.43) 05/13/24 11:53 RBC 4.50 10^6/uL (3.85-5.65) 05/13/24 11:53 Hgb 13.50 g/dL (11.27-16.99) 05/13/24 11:53 Hct 40.3 % (36-47) 05/13/24 11:53 MCV 89.6 fl (85-98) 05/13/24 11:53 MCH 30.0 pg (27-33) 05/13/24 11:53 MCHC 33.5 g/dL (30-55) 05/13/24 11:53 RDW 12.9 % (12.1-15.1) 05/13/24 11:53 Plt Count 349 10^3/cmm (157-399) 05/13/24 11:53 MPV 12.3 fL (7.4-10.4) H 05/13/24 11:53 Neut % (Auto) 69.9 % 05/13/24 11:53 Lymph % (Auto) 20.7 % 05/13/24 11:53 [place] % (Auto) 8.6 % 05/13/24 11:53 Eos % (Auto) 0.4 % 05/13/24 11:53 Baso % (Auto) 0.1 % 05/13/24 11:53 Neut # (Auto) 6.28 10^3/uL (1.8-7.7) 05/13/24 11:53 Lymph # (Auto) 1.9 10^3/uL (0.8-4.8) 05/13/24 11:53 [place] # (Auto) 0.8 10^3/uL (0.2-0.9) 05/13/24 11:53 Eos # (Auto) 0.0 10^3/uL (0.0-0.8) 05/13/24 11:53 Baso # (Auto) 0.0 10^3/uL (0.0-0.1) 05/13/24 11:53 Nucleated RBC % (auto) 0 % 05/13/24 11:53 Nucleated RBCs # 0.0 /100WBC 05/13/24 11:53 PT 13.70 SECONDS (12.1-14.9) 05/13/24 11:53 INR 1.02 (0.8-1.2) 05/13/24 11:53 APTT 40.1 SECONDS (23.9-36.7) H 05/13/24 11:53 Sodium 141 mmol/L (136-145) 05/13/24 11:53 Potassium 3.7 mmol/L (3.5-5.1) 05/13/24 11:53 Chloride 104 mmol/L (98-107) 05/13/24 11:53 Carbon Dioxide 23 mmol/L (22-29) 05/13/24 11:53 Anion Gap 17.7 (5-19) 05/13/24 11:53 BUN 9 mg/dL (8-23) 05/13/24 11:53 Creatinine 0.9 mg/dL (0.5-0.9) 05/13/24 11:53 GFR Calculation Not Reportable 05/13/24 11:53 Glucose 110 mg/dL (65-115) 05/13/24 11:53 Calculated Osmolality 291 mOsm/kg (285-295) 05/13/24 11:53 Calcium 9.9 mg/dL (8.5-10.5) 05/13/24 11:53 Total Bilirubin 0.6 mg/dL (0.15-1.2) 05/13/24 11:53 AST 18 U/L (0-32) 05/13/24 11:53 ALT 9 U/L (0-33) 05/13/24 11:53 Alkaline Phosphatase 149 U/L (35-105) H 05/13/24 11:53 Ammonia 35 umol/L (11-51) 05/13/24 11:53 Total Protein 6.9 g/dL (6.6-8.7) 05/13/24 11:53 Albumin 3.9 g/dL (3.5-5.2) 05/13/24 11:53 Globulin 3.0 g/dL (1.3-4.6) 05/13/24 11:53 TSH 0.90 uIU/mL (0.27-4.20) 05/13/24 11:53 Urine Color Yellow (Yellow) 05/13/24 12:45 Urine Appearance Clear (CLEAR) 05/13/24 12:45 Urine pH 9 (5-7) A 05/13/24 12:45 Ur Specific [place] 1.010 (1.005-1.030) 05/13/24 12:45 Urine Protein Neg (Negative) 05/13/24 12:45 Urine Glucose (UA) Norm (Normal) 05/13/24 12:45 Urine Ketones Negative (Negative) 05/13/24 12:45 Urine Blood Neg (Negative) 05/13/24 12:45 Urine Nitrate Negative (Negative) 05/13/24 12:45 Urine Bilirubin Neg (Negative) 05/13/24 12:45 Urine Urobilinogen Norm mg/dL (Negative) 05/13/24 12:45 Ur Leukocyte Esterase Trace (Negative) H 05/13/24 12:45 Urine RBC 0-4 /hpf (0-2) H 05/13/24 12:45 Urine WBC 0-4 /hpf (0-5) H 05/13/24 12:45 Ur Squamous Epith Cells 5-10 /hpf (0-5) H 05/13/24 12:45 Amorphous Sediment Not Reportable 05/13/24 12:45 Urine Bacteria None /hpf (NONE) 05/13/24 12:45 Urine Mucus None /hpf 05/13/24 12:45 Urine Opiates Screen Positive ng/mL (Negative) H 05/13/24 12:45 Ur Barbiturates Screen Negative ng/mL (Negative) 05/13/24 12:45 Ur Phencyclidine Scrn Negative ng/mL (Negative) 05/13/24 12:45 Ur Amphetamines Screen Negative ng/mL (Negative) 05/13/24 12:45 U Benzodiazepines Scrn Negative ng/mL (Negative) 05/13/24 12:45 Urine Cocaine Screen Negative ng/mL (Negative) 05/13/24 12:45 U Marijuana (THC) Screen Negative ng/mL (Negative) 05/13/24 12:45 All radiology interpretation(s) finalized by discharge EKG Data EKG 1: I personally reviewed and interpreted this EKG as follows: EKG interpretation date: 05/13/24 EKG interpretation time: 12:22 Interpretation: sinus tach hr [address] elevation qrs 94 qtc 409 Discharge Plan Discharge Patient Disposition: Admitted As Inpatient Clinical Impression: Altered mental status, Frequent falls Condition: Stable Prescriptions: No Action ibuprofen [Motrin IB] 200 mg tablet 200 mg PO BID PRN (Reason: Pain) prednisone 10 mg tablet 10 mg PO DAILY PRN (Reason: arthritis pain/inflammation) Qty: 90 1RF acyclovir [Zovirax] 5 % ointment 1 applic topical 6XD 7 Days Qty: 15 3RF acyclovir 400 mg tablet 400 mg PO TID 7 Days Qty: 21 3RF pantoprazole 20 mg tablet,delayed release (DR/EC) See Rx Instructions .ROUTE .COMPLEX Qty: 60 11RF Dose Instruction: TAKE ONE TABLET BY MOUTH TWICE DAILY *take 30 minutes before breakfast and 30 minutes before dinner ON empty stomach* Rx Instructions: TAKE ONE TABLET BY MOUTH TWICE DAILY *take 30 minutes before breakfast and 30 minutes before dinner ON empty stomach* gabapentin 600 mg tablet 600 mg PO TID 30 Days Qty: 90 3RF oxycodone 10 mg tablet 10 mg PO Q6H PRN (Reason: pain) 10 Days Qty: 120 0RF clopidogrel 75 mg tablet 75 mg PO DAILY Referrals: Sudheer Canchola DO [Primary Care Provider] - Coding Level of Care Code ED Calender [employer] for Rosamaria Johns
--- NOTE | 2024-05-13 11:58 | XRR_ITS ---
PROCEDURE INFORMATION: Exam: XR Pelvis Exam date and time: 05/13/2024 12:03 PM Age: 84 years old Clinical indication: Injury or trauma; Fall; Blunt trauma (contusions or hematomas); Bilateral; Pelvic region TECHNIQUE: Imaging protocol: Radiologic exam of the pelvis. Views: 1 or 2 view. COMPARISON: CT lumbar spine wo con* [id number] 01/19/2022 8:56 AM FINDINGS: Bones/joints: Unremarkable. No acute fracture. Soft tissues: Unremarkable. Contrast projects over the bladder. XR/XR pelvis 1-2V* [id number] IMPRESSION: No acute findings.
[2024-05-13 12:00] LABS: Basophils % 0.1 %; Eosinophils % 0.4 %; Hematocrit 40.3 % (36-47); Lymphocytes # 1.9 10^3/uL (0.8-4.8); Lymphocytes % 20.7 %; Mean Corpuscular HGB Conc 33.5 g/dL (30-55); Mean Corpuscular Volume 89.6 fl (85-98); Mean Platelet Volume 12.3 fL (7.4-10.4); Monocytes # 0.8 10^3/uL (0.2-0.9); Monocytes % 8.6 %; Neutrophils # 6.28 10^3/uL (1.8-7.7); Neutrophils % 69.9 %; Nucleated Red Blood Cells % 0 %; Platelet Count 349 10^3/cmm (157-399); Red Cell Distribution Width 12.9 % (12.1-15.1); White Blood Count 8.99 10^3/uL (3.29-11.43)
[2024-05-13 12:21] LABS: INR 1.02 (0.8-1.2)
[2024-05-13 12:22] LABS: Partial Thromboplastin Time 40.1 SECONDS (23.9-36.7)
[2024-05-13 12:24] LABS: Ammonia 35 umol/L (11-51)
--- NOTE | 2024-05-13 12:27 | PC.NURSE ---
water test screening, pt had no difficulty with sitting upright, alert/orientated x3, and able to swallow water without issues.
--- NOTE | 2024-05-13 12:28 | PC.PHAR ---
Pt states last took medication yesterday. Pt got confused about meds half way through the list. Verified with pharmacy with fill dates and days supply. Pharmacy states pt recently changed from [place] 10-325-3 times daily as needed #90, to Oxycodone 10 mg every 6 hours as needed #120.
[2024-05-13] MEDS: sodium chloride 0.9% 1,000 ML 999 ML IV (12:34)
[2024-05-13 12:35] LABS: Alanine Aminotransferase 9 U/L (0-33); Albumin Level 3.9 g/dL (3.5-5.2); Alkaline Phosphatase 149 U/L (35-105); Anion Gap 17.7 (5-19); Aspartate Amino Transferase 18 U/L (0-32); Blood Urea Nitrogen 9 mg/dL (8-23); Calcium 9.9 mg/dL (8.5-10.5); Carbon Dioxide 23 mmol/L (22-29); Chloride 104 mmol/L (98-107); Creatinine Clr Calc Pharmacy 44.1259; Glucose 110 mg/dL (65-115); Osmolality Calculated 291 mOsm/kg (285-295); Potassium 3.7 mmol/L (3.5-5.1); Sodium 141 mmol/L (136-145); Total Bilirubin 0.6 mg/dL (0.15-1.2); Total Protein 6.9 g/dL (6.6-8.7)
[2024-05-13 13:05] LABS: Charge for UA Resulting for Rev
[2024-05-13] MEDS: HYDROcodone-acetaminophen 5-325 mg Tablet 1 TAB PO (13:11)
[2024-05-13 13:15] LABS: Amphetamines Screen Urine Negative (Negative); Barbiturates Screen Urine Negative (Negative); Benzodiazepines Screen Urine Negative (Negative); Cocaine Screen Urine Negative (Negative); Opiate Screen Urine Positive (Negative); PCP Screen Urine Negative (Negative); THC Screen Urine Negative (Negative)
[2024-05-13 13:28] LABS: Glucose Urine UA Norm (Normal); Ketones Urine Negative (Negative); Protein Urine Neg (Negative); Urine Appearance Clear (CLEAR); Urine Color Yellow (Yellow); pH Urine 9 (5-7)
[2024-05-13 13:29] LABS: Bilirubin Urine Neg (Negative); Blood Urine Neg (Negative); Leukocyte Esterase Urine Trace (Negative); Nitrate Urine Negative (Negative); UA Manual Slide Review YES; UA Slide Review UA Slide Review Perf; Urobilinogen Urine Norm (Negative)
[2024-05-13 13:30] LABS: Add Urine Culture? No; RBC Urine 0-4 /hpf (0-2); WBC Urine 0-4 /hpf (0-5)
--- NOTE | 2024-05-13 14:08 | P.HP_ITS ---
Providers/Chief Complaint 2 Admitting Physician: Nichelle Alston MD Primary Care Provider: Sudheer Canchola DO Chief Complaint: Stoke Alert History of Present Illness Gita Stubbs is a 84 year old female who presented to the emergency room via EMS after neighbors contacted them due to Mrs. Stubbs being extremely weak and confused today. History is obtained from combination of her neighbors as well as Mrs. Stubbs herself. As a baseline patient was seen by Dr. Hernández on Sunday last week and at that time was at her usual baseline, able to provide history. She was able to make it to the clinic appointment without more difficulty than her baseline functioning. 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 In addition she has had worsening back and other joint pains. She has a longstanding history of pain in multiple joints for which she has gone to pain clinic. She was on hydrocodone until recently when she was switched to oxycodone but that was several months ago. She denies taking medications in excess and review of PDMP indicates that she has been utilizing 1 pharmacy, generally 1 provider at a time with only exceptions during transitions of care. In talking with her when she awakened on Sunday she was having some difficulty with her words and getting out what she wanted to say. Her son lives with her and assist her as needed. He has been having to help her more lately. She describes being weak all over, 1 side not worse than the other with the exception of the left upper extremity. She has also been sleeping more lately and not wanting to get up and do anything. She has had no appetite and little enjoyment. She began to think that a lot of her challenges recently may be due to the medications that she is on and she decided to quit taking all of her medications when she had some word finding difficulties on Sunday and has not had any of them since May 09. This includes no Plavix, gabapentin, oxycodone or prednisone which it sounds like she was taking all fairly regularly prior to that. Over the last few days she has suggested to her neighbors that she is scared of her son. They do not know if he has done anything to her and when I asked Ms. Stubbs directly she says that he has not been happy that he has had to help her as much and can get upset when she asks for help. She denied any physical altercation but says that she stayed up all night last night worried that her son might try to hurt her and that she did not sleep. This fear progressively worsened overnight prompting her, when she got out of bed this morning, to get in her car and drive to her neighbor's house to ask for help. They have not seen her since Sunday nor talk to her on the phone. They said when she got there she could barely talk in her words did not make sense. She was not able to get out of the car by herself. Her vehicle did not look like she had hit anything on the way over but they are surprised that she was physically able to drive. They called for an ambulance and EMS indicated that her words were very jumbled and did not make sense. She came in as a stroke alert possibility. NIH stroke scale score was [address] of the head without contrast as well as CTA of the head and neck did not show findings suggesting stroke. Chemistries and electrolytes were fairly normal. Urinalysis was not consistent with an acute infection. Etiology for her confusion and weakness was unclear. While she is able to provide answers to a lot of questions, answers can be inconsistent and she is not back to her baseline. She also cannot stand without assistance. She had been seen by Dr. 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 Workup for autoimmune and inflammatory processes was sent and is as documented below though not all resulted yet. On repeated questioning Mrs. Stubbs indicates the last time she took any of her medicines was 3 or 4 days ago. She is being admitted for further evaluation and treatment, monitoring. Review of Systems 2 General: Reports: Other (ROS as per HPI or as otherwise noted here) Const: Reports: body aches, change in appetite (No appetite), fatigue and change in sleep pattern (More); Denies: fever(s), change in weight, night sweats or diaphoresis Eyes: Denies: change in vision ENMT: Denies: throat pain Card: Denies: chest pain, palpitations, edema, dyspnea on exertion or orthopnea Resp: Denies: dyspnea, productive cough or non-productive cough GI: Denies: abdominal pain, nausea, vomiting, diarrhea or constipation : Denies: difficulty voiding, dysuria or urinary frequency Musc: Reports: neck pain, back pain, extremity pain and muscle weakness; Denies: extremity swelling, joint redness or joint warmth Skin/Breast: Denies: rash or pruritus Neuro: Reports: numbness in extremities (No new paresthesias per the patient), weakness in extremities, difficulty walking, frequent falls, confusion and difficulty communicating thoughts; Denies: headache(s), dizziness, vertigo or involuntary movements Psych: Reports: anxiety, depression, sleeping more, hopelessness, loss of interest, change in appetite and other (Fearful of his son); Denies: suicidal ideation or homicidal ideation Sachin/Lymph: Denies: easy bruising or easy bleeding Medications/Allergies Home Medications Medication Instructions Recorded Confirmed Last Taken Type ibuprofen 200 mg tablet (Motrin IB) 200 mg PO BID PRN Pain 10/28/19 05/13/24 Unknown History pantoprazole 20 mg tablet,delayed See Rx Instructions .Route 02/13/24 05/13/24 05/09/24 Rx release .COMPLEX #60 tabs prednisone 10 mg tablet 10 mg PO DAILY PRN arthritis 02/25/24 05/13/24 05/09/24 Rx pain/inflammation #90 tabs gabapentin 600 mg tablet 600 mg PO TID 30 days #90 tabs 04/21/24 05/13/24 05/09/24 Rx oxycodone 10 mg tablet 10 mg PO Q6H PRN pain 10 days #120 04/23/24 05/13/24 05/09/24 Rx tabs acyclovir 5 % topical ointment 1 applic topical 6XD PRN cold sores 05/13/24 05/13/24 Unknown History (Zovirax) clopidogrel 75 mg tablet 75 mg PO DAILY 05/13/24 05/13/24 05/09/24 History Allergies Allergy/AdvReac Type Severity Reaction Status Date / Time No Known Allergies Allergy Verified 05/09/24 12:50 PFSH Acute 2 PFSH: Medical History (Updated 05/13/24 @ 16:40 by Nichelle Alston MD) 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 Chronic narcotic use Restless leg syndrome Chronic left shoulder pain Arthritis Back Pain Doing well on current meds DDD (degenerative disc disease), lumbar Degenerative lumbar spinal stenosis Acquired spondylolisthesis Cervical disc disorder with myelopathy, unspecified cervical region Chronic neck and back pain Pain of right upper extremity Degenerative joint disease of both lower legs Radiculopathy, site unspecified Surgical History (Updated 05/13/24 @ 15:26 by Nichelle Alston MD) History of total left knee replacement Status post carpal tunnel release bilateral in 1979, left 2022 History of total right knee replacement Family History Other CAD (coronary artery disease) Hypertension Social History (Updated 05/13/24 @ 16:51 by Nichelle Alston MD) Smoking and tobacco/nicotine status: never used tobacco/nicotine Second hand smoke exposure: No Alcohol intake: never Substance/Drug Use: never 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 She recognizes my face and though she cannot tell me my name, she recognizes that when I tell her. 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 She is a bit timid and some of her answers and takes time to find them but speech is understandable. NIH stroke scale is 0. Extraocular movements are intact. Pupils are reactive. No nystagmus. Slightly dry mucous membranes. Neck is supple. Lungs are clear to auscultation bilaterally without any rales rhonchi or wheezes noted. Cardiovascular exam reveals a regular rate and rhythm without any murmurs. No bruits are noted, no rubs. Abdomen is soft, nontender, no flank tenderness, positive bowel sounds. Lower extremities with no pitting edema. No calf tenderness. There is some decreased strength with handgrips bilaterally left slightly more so than right but strength is equal in the lower extremities. Not hyperreflexic. Symmetrical DTRs. Gait not currently assessed. Noted to have a hesitating and antalgic gait on Rolando at neurology clinic. Muscle wasting noted at the left hand with bony hypertrophy of multiple bilateral digits without warmth or erythema noted. No large areas of bruising noted. Data 05/13/24 11:53 05/13/24 11:53 Other Labs: Radiology Impressions Head CT 05/13/24 11:31 IMPRESSION: 1. No acute intracranial hemorrhage or edema. 2. Mild cerebral atrophy and volume loss with mild small vessel ischemic disease. Head/Neck CTA 05/13/24 11:35 IMPRESSION: 1. Minimal atherosclerotic plaque in the cervical carotid arteries. No high- grade stenosis. 2. No aneurysms or occlusions in the [place] of [place]. 3. Moderate atherosclerotic plaque cavernous carotid arteries approaching 50% stenosis. Chest X-Ray 05/13/24 11:50 IMPRESSION: 1. The lungs are clear. 2. Apparent cardiomegaly is accentuated by positioning. Pelvis X-Ray 05/13/24 11:58 IMPRESSION: No acute findings. Laboratory Results WBC 8.99 10^3/uL (3.29-11.43) 05/13/24 11:53 RBC 4.50 10^6/uL (3.85-5.65) 05/13/24 11:53 Hgb 13.50 g/dL (11.27-16.99) 05/13/24 11:53 Hct 40.3 % (36-47) 05/13/24 11:53 MCV 89.6 fl (85-98) 05/13/24 11:53 MCH 30.0 pg (27-33) 05/13/24 11:53 MCHC 33.5 g/dL (30-55) 05/13/24 11:53 RDW 12.9 % (12.1-15.1) 05/13/24 11:53 Plt Count 349 10^3/cmm (157-399) 05/13/24 11:53 MPV 12.3 fL (7.4-10.4) H 05/13/24 11:53 Neut % (Auto) 69.9 % 05/13/24 11:53 Lymph % (Auto) 20.7 % 05/13/24 11:53 [place] % (Auto) 8.6 % 05/13/24 11:53 Eos % (Auto) 0.4 % 05/13/24 11:53 Baso % (Auto) 0.1 % 05/13/24 11:53 Neut # (Auto) 6.28 10^3/uL (1.8-7.7) 05/13/24 11:53 Lymph # (Auto) 1.9 10^3/uL (0.8-4.8) 05/13/24 11:53 [place] # (Auto) 0.8 10^3/uL (0.2-0.9) 05/13/24 11:53 Eos # (Auto) 0.0 10^3/uL (0.0-0.8) 05/13/24 11:53 Baso # (Auto) 0.0 10^3/uL (0.0-0.1) 05/13/24 11:53 Nucleated RBC % (auto) 0 % 05/13/24 11:53 Nucleated RBCs # 0.0 /100WBC 05/13/24 11:53 PT 13.70 SECONDS (12.1-14.9) 05/13/24 11:53 INR 1.02 (0.8-1.2) 05/13/24 11:53 APTT 40.1 SECONDS (23.9-36.7) H 05/13/24 11:53 Sodium 141 mmol/L (136-145) 05/13/24 11:53 Potassium 3.7 mmol/L (3.5-5.1) 05/13/24 11:53 Chloride 104 mmol/L (98-107) 05/13/24 11:53 Carbon Dioxide 23 mmol/L (22-29) 05/13/24 11:53 Anion Gap 17.7 (5-19) 05/13/24 11:53 BUN 9 mg/dL (8-23) 05/13/24 11:53 Creatinine 0.9 mg/dL (0.5-0.9) 05/13/24 11:53 GFR Calculation Not Reportable 05/13/24 11:53 Glucose 110 mg/dL (65-115) 05/13/24 11:53 Calculated Osmolality 291 mOsm/kg (285-295) 05/13/24 11:53 Calcium 9.9 mg/dL (8.5-10.5) 05/13/24 11:53 Total Bilirubin 0.6 mg/dL (0.15-1.2) 05/13/24 11:53 AST 18 U/L (0-32) 05/13/24 11:53 ALT 9 U/L (0-33) 05/13/24 11:53 Alkaline Phosphatase 149 U/L (35-105) H 05/13/24 11:53 Ammonia 35 umol/L (11-51) 05/13/24 11:53 Troponin T Baseline 51 ng/L (0-10) H 05/13/24 11:53 Total Protein 6.9 g/dL (6.6-8.7) 05/13/24 11:53 Albumin 3.9 g/dL (3.5-5.2) 05/13/24 11:53 Globulin 3.0 g/dL (1.3-4.6) 05/13/24 11:53 TSH 0.90 uIU/mL (0.27-4.20) 05/13/24 11:53 Urine Color Yellow (Yellow) 05/13/24 12:45 Urine Appearance Clear (CLEAR) 05/13/24 12:45 Urine pH 9 (5-7) A 05/13/24 12:45 Ur Specific [place] 1.010 (1.005-1.030) 05/13/24 12:45 Urine Protein Neg (Negative) 05/13/24 12:45 Urine Glucose (UA) Norm (Normal) 05/13/24 12:45 Urine Ketones Negative (Negative) 05/13/24 12:45 Urine Blood Neg (Negative) 05/13/24 12:45 Urine Nitrate Negative (Negative) 05/13/24 12:45 Urine Bilirubin Neg (Negative) 05/13/24 12:45 Urine Urobilinogen Norm mg/dL (Negative) 05/13/24 12:45 Ur Leukocyte Esterase Trace (Negative) H 05/13/24 12:45 Urine RBC 0-4 /hpf (0-2) H 05/13/24 12:45 Urine WBC 0-4 /hpf (0-5) H 05/13/24 12:45 Ur Squamous Epith Cells 5-10 /hpf (0-5) H 05/13/24 12:45 Amorphous Sediment Not Reportable 05/13/24 12:45 Urine Bacteria None /hpf (NONE) 05/13/24 12:45 Urine Mucus None /hpf 05/13/24 12:45 Urine Opiates Screen Positive ng/mL (Negative) H 05/13/24 12:45 Ur Barbiturates Screen Negative ng/mL (Negative) 05/13/24 12:45 Ur Phencyclidine Scrn Negative ng/mL (Negative) 05/13/24 12:45 Ur Amphetamines Screen Negative ng/mL (Negative) 05/13/24 12:45 U Benzodiazepines Scrn Negative ng/mL (Negative) 05/13/24 12:45 Urine Cocaine Screen Negative ng/mL (Negative) 05/13/24 12:45 U Marijuana (THC) Screen Negative ng/mL (Negative) 05/13/24 12:45 Laboratory Tests 05/13/24 13:57 Troponin T 120 Minute 48.50 H Delta Troponin T -2.50 L Other data: Labs from 05/09 neurology clinic appt 05/09/24 14:34 ESR 18 H C-Reactive Protein 7.5 H Rheumatoid Factor 10.0 FARIBA IFA Animal Tis Res Negative ELIS-1 Antibody <1.0 neg SS-A Antibody <1.0 neg SS-B Antibody <1.0 neg Sm (Tamez) Antibody <1.0 neg CLIENT SERVICES ACCOUNT MANAGER Antibody <1.0 neg Scl-70 Antibody <1.0 neg Anti-ds DNA IgG (Crith) Pending Centromere B Antibody <1.0 neg Sulfatide Ab Tech Results Pending Sulfatide Antibody Comments Pending Sulfatide Ab Interpret Pending Sulfatide Ab References Pending Sulfatide Ab Method Pending Thyroid Peroxidase Ab 8 Complement C3c 121 Complement C4c 24 CH50 Classical Pathway 59 A&P Assessment and plan (1) Altered mental status: Patient was quite confused this morning not able to explain what was happening to her. Her neighbors and EMS did not understand what she was talking about. She describes some word finding difficulties for approximately 3 days. Initial concern was for possibility of a stroke, particularly due to difficulty walking. She is currently oriented to person, place, time and to aspects of her situation. Her speech is easy to understand and NIH stroke scale 0 if given adequate time to perform tasks. Noncontrasted CT of the head along with CTA of the head and neck were unremarkable. I believe she was delirious this morning for multifactorial reasons. #1 she did not sleep last night. #2 from talking with her it sounds like she stopped taking all of her usual medications 3 days ago as she was concerned that her medications were contributing to progressive weakness, increasing need for assistance along with being sleepy all of the time. Review of records indicates that she had been on hydrocodone for a long time without improvement and was switched to oxycodone approximately 3 months ago. She indicates that for some time she has been taking pain medication more consistently throughout the day than she used to. I do not have actual pill bottles available to discern how many she has or has not been taking lately. Both under her use and overuse of her medications could contribute to mental status changes and weakness/ataxia. This could be true for oxycodone and prednisone, gabapentin also. #3 patient clearly describes depressive symptoms with loss of appetite, loss of interest in activities, increasing sleeping pattern. PHQ 2 is 6. She we will talk about being depressed indicating a lot of it is because she is getting older and less able to maintain independence in activities of daily living as she used to. She denies wanting to harm herself or others. She is not willing to consider pharmacological treatment for depression based on discussion today. #4 vascular event is a distinct possibility with stroke or cardiac ischemia highest in differential. Troponin is elevated though we have no baseline for comparison. Nonspecific EKG findings. No reports of any chest pain or respiratory issues recently. No known history of coronary artery disease though there has been concern for an inflammatory or autoimmune process contributing to her chronic issues. #5 infection seems less likely with no reports of any fever, no complaints of urinary or GI symptoms nor respiratory symptoms or other indications of infection. Urinalysis is abnormal but consistent with contaminated specimen showing epithelial cells and white count is normal. #6 difficulty hearing may have played a part in her not understanding what was being said to her this morning in the setting of her delirious state #7 uncontrolled pain #8 fear of her current living conditions with her son. Have not been able to speak with him regarding events the last couple of days but her neighbors indicates she has mentioned being fearful of him a couple of times lately. She stayed up all night worried that her son might become more upset with her because of the amount of assistance that she has been needing lately. She has improved since presentation to her neighbors in the ER and has been able to provide most history but is not back to her baseline yet. Qualifiers: Altered mental status type: delirium Qualified Code(s): R41.0 - Disorientation, unspecified (2) Elevated troponin: Elevated baseline troponin at 50. No reports of any chest pain or known cardiovascular disease. No diagnosis of hypertension, diabetes, history of stroke or kidney disease. Family history includes heart disease in her father and brother. (3) Elevated blood pressure reading without diagnosis of hypertension: Blood pressures are variable. Will need to monitor. She has not had any pain medication for some time and does complain of pain. She is also upset about the events of today. Looking at trends over time she has not had sustained elevation in blood pressures nor required antihypertensive medication in the past. (4) Frequent falls: Reported over the last few days in particular due to generalized rather than focal weakness. It has gotten to the point that she is requiring assistance with getting up and moving around whereas she previously had not required assistance and was quite active. She does have upper extremity evidence of mononeuritis multiplex as well as longstanding and acute pain issues for which she has been seen by Dr. Hernández and previously followed with pain clinic. Over and under or even chronic use of opioid, steroid or gabaentin could be a contributor here. Myositis/myalgia in differential as is multiple sensory deficits. With more general weakness cerebrovascular event seems less likely but also within the differential. I suspect this is secondary to what ever the overall problem is rather than primary. (5) Chronic pain of multiple sites: Has had longstanding pain issues involving multiple sites such as neck, back, shoulders, arms, lower extremities. Has degenerative joint disease, prior surgeries both in upper and lower extremities and possibility of neuropathic, inflammatory or autoimmune processes in play. Has had steroid injections, opiates, duloxitine, requip, gabapentin, flexeril among other treatments. 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 Earlier this year was changed to oxycodone as pain was not adequately controlled. (7) rodent exterminator current use of systemic steroids: Has longstanding prescription for prednisone prescribed to be used as needed for arthritis pain. It sounds like she was taking fairly regularly for at least a period of time this year but difficult to confirm at this point in time. Indicates last use was 3 days ago when she quit taking all of her medicines. (8) nursing home current use of clopidogrel: Indicates she is on this medication prophylactically due to a family history of coronary artery disease but not for any long-term diagnosis that she reports. Has not taken this medication for 3 days. 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 Has had MRI left upper extremity as well as part of workup. (10) Myositis: Involving multiple sites, workup in progress after visit with Dr Hernández last week. Results we have are noted above in other data. Qualifiers: Myositis location: multiple sites (11) Neuropathy: Has peripheral and possibly other neuropathy/radiculopathy contributing to presentation chronically and possibly acutely. On gabapentin 600 mg tid for some time for adjunctive pain control and this. Began to think gabapentin might be contributing to her recent escalation in symptoms and quit taking it 05/10/24 without discussing with physicians. Neuropathy has been progressively debilitating. Concern noted last week by Dr Hernández for possibility of Polymyalgia Rheumatica. ESR was checked and only minimally elevated at 18. (12) Abnormal finding on urinalysis: Consistent with contaminated specimen, no urinary symptoms to speak of, normal white blood count (13) Restless leg syndrome: Previously on Requip but not on since January or February of 2024 Plan Observation admission for now Serial neuroexams Fall precautions Check CK level Continue serial cardiac enzymes and EKGs Telemetry monitoring Echocardiogram Continue Plavix Check lipid control panel builder blood pressures for need to add an agent though at this time I am not initiating treatment In terms of pain control will get her back on oxycodone at a lower dose of 5 mg every 6 hours as needed for moderate to severe pain and add a maximum of 2 g of Tylenol per day Will resume a lower dose of gabapentin Will resume 10 mg a day of prednisone for now Recheck ESR and CRP in am, depending on results may consider a higher dose of steroids Check CK level to have his baseline Had multiple autoimmune/inflammatory labs checked last week with results as noted above and some pending Pending results of cardiac and other workup consider PT and OT evaluations VTE prophylaxis: SCDs GI Prophylaxis: PPI Antibiotics: none Pending studies: 6-hour troponin, echocardiogram, a.m. labs Telemetry: Ordered secondary to abnormal troponin Rollins: not currently indicated Line(s): peripheral IVs Disposition plan: Home with outpatient follow up currently anticipated though there is a question of safety in the home setting. Alternative arrangements and may need to be made. Patient has a son from [place] that understand will be coming up here. His name is Jim Cline [phone]. His is Lashawn Cline [phone]. Neighbor is Ania Lam [phone]. Patient's son Demarcus currently lives at the home. I did speak briefly with Dr. Canchola regarding patient admission and concerns at home. Code Status: Full Code Supportive care otherwise Findings, concerns and plans were discussed with patient and they were given an opportunity to ask questions Attestations 2 Medical Necessity Statement*: Anticipated stay less than 2 midnights in this patient presenting with confusion and weakness who has shown some improvement but is not yet back to baseline. She may very well require transition to inpatient status depending on clinical course. Concerns currently are for abnormal cardiac enzymes, unclear etiology of transient confusion, word finding difficulty and weakness, sudden cessation of multiple medications that can impact her clinically on top of chronic pain, neuropathy, neuritis, myositis issues that have been progressively worsening and not responding adequately to treatment. Coding Level of Care Code 25706 High Time for a total of 90 minutes, includes reviewing past or interval history, examining/interviewing patient, placing orders, discussing plan of care with staff, communicating with other healthcare providers (called Dr Canchola) and documenting encounter Diagnoses Delirium R41.0 Altered mental status type: delirium Elevated troponin R79.89 Elevated blood pressure reading without diagnosis of hypertension R03.0 Frequent falls R29.6 Chronic pain of multiple sites R52; G89.29 nursing home prescription opiate use Z79.891 nursing home current use of systemic steroids Z79.52 nursing home current use of clopidogrel 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
[2024-05-13 14:16] LABS: Troponin(5th) Baseline 51 ng/L (0-10)
--- NOTE | 2024-05-13 15:01 | ECG_ITS ---
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 Measurements Intervals [place] Rate: 84 P: 59 [place]: 159 QRS: -39 QRSD: 93 T: 24 QT: 376 QTc: 445 Interpretive Statements SINUS RHYTHM LEFT AXIS DEVIATION [QRS AXIS < -30] LOW QRS VOLTAGE IN PRECORDIAL LEADS [QRS DEFLECTION < 1.0 mV IN CHEST LEADS] Compared to ECG 05/13/2024 12:22:55 Left-axis deviation now present Sinus tachycardia no longer present Left anterior fascicular block no longer present Myocardial infarct finding no longer present Electronically Signed On 05-13-2024 23:40:21 CDT by Disha Shen M.D. [id number]
[2024-05-13 16:02] LABS: Creatine Phosphokinase 124 U/L (26-192)
--- NOTE | 2024-05-13 16:14 | USCV_ITS ---
Gita Stubbs Age: 84 Gender: F : 1940 Exam Date: 05/13/2024 18:06 Ordering Phys: Nichelle Alston MD Technologist: RACHID Exam Location: [facility] [place] Indication: elevated troponin and confusion. BP: 150 / 77 HR: 77 Rhythm: Sinus Technical Quality: Adequate MEASUREMENTS (Male / Female) Normal Values 2D ECHO LV Diastolic Diameter PLAX 3.4 cm 4.2 - 5.9 / 3.9 - 5.3 cm IVS Diastolic Thickness 1.3 cm 0.6 - 1.0 / 0.6 - 0.9 cm IVS Systolic Thickness 1.7 cm LVPW Diastolic Thickness 1.4 cm 0.6 - 1.0 / 0.6 - 0.9 cm LVPW Systolic Thickness 1.8 cm LVOT Diameter 1.6 cm LV Ejection Fraction 2D Teich 63.9 % LV Ejection Fraction MOD 4C 42.7 % LV Ejection Fraction MOD 2C 55.1 % LV Ejection Fraction 2C AL 55.9 % LA Diameter 3.4 cm Aorta at Sinotubular Diameter 2.7 cm IVC Diameter 1.1 cm M-MODE LA Ao Ratio MM 1.4 AV Cusp Separation MM 1.8 cm DOPPLER AV Peak Velocity 131.0 cm/s LVOT Peak Velocity 83.0 cm/s AV Area Cont Eq vti 1.5 cm squared AV Area Cont Eq pk 1.3 cm squared MV Peak Velocity 148.0 cm/s MV Area PHT 3.3 cm squared Mitral E to A Ratio 0.8 TR Peak Velocity 247.0 cm/s TR Peak Gradient 24.4 mmHg TV Peak E Velocity 45.0 cm/s Right Atrial Pressure 10.0 mmHg Pulmonary Artery Systolic Pressu 34.4 mmHg PV Peak Velocity 71.0 cm/s FINDINGS Left Ventricle Normal left ventricular size and systolic function, EF 55%.mild left ventricular hypertrophy. Grade I/IV diastolic dysfunction (abnormal relaxation filling pattern), normal to mildly elevated filling pressures. Right Ventricle The right ventricle is normal in size and function. Right Atrium Mildly increased right atrial size. Left Atrium Moderately increased left atrial size. Mitral Valve Thickened mitral valve. Moderate mitral annular calcification. Aortic Valve Minimally thickened Tricuspid Valve Trace tricuspid valve regurgitation. Pulmonic Valve Pulmonic valve not well visualized. Pericardium Normal pericardium without effusion. Aorta Normal aortic annulus size. IVC Inferior vena cava not visualized. CONCLUSIONS Normal left ventricular size and systolic function, EF 55%.mild left ventricular hypertrophy. Grade I/IV diastolic dysfunction (abnormal relaxation filling pattern), normal to mildly elevated filling pressures. Mildly increased right atrial size. Moderately increased left atrial size. Thickened mitral valve. Moderate mitral annular calcification. Minimally thickened aortic valve. There is no pericardial effusion. Trace tricuspid valve regurgitation. Estimated pulmonary artery peak systolic pressure 34 mmHg No similar previous studies are available for comparison Dr Disha Shen MD FAC (Electronically Signed) Final Date: 13 May 2024 21:33 S
[2024-05-13] MEDS: pantoprazole DR 40 mg Tablet PO (19:01)
[2024-05-13] MEDS: D5-NS 0.45% + KCL 20 mEq 20 MEQ/1,000 ML BAG 75 MEQ IV (19:01)
[2024-05-13 19:12] LABS: Troponin 5 6HR 47.22 ng/L (0-10)
[2024-05-13 19:13] LABS: Troponin 5 6HR Delta -3.78 ng/L (0-12)
--- NOTE | 2024-05-13 20:07 | ECG_ITS ---
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 Measurements Intervals [place] Rate: 80 P: 60 SC: 173 QRS: -32 QRSD: 101 T: 21 QT: 380 QTc: 438 Interpretive Statements SINUS RHYTHM LEFT AXIS DEVIATION [QRS AXIS < -30] Compared to ECG 05/13/2024 15:01:59 No significant changes Electronically Signed On 05-13-2024 23:43:23 CDT by Disha Shen M.D. [id number]
[2024-05-13] MEDS: oxyCODONE 5 mg IR Tab/Cap PO (20:42)
[2024-05-14] VITALS (13 sets, daily range): BP systolic 136–165; BP diastolic 66–79; PULSE 51–87; RESP 16–18; TEMP 36.3–37.1; O2SAT 95–97
[2024-05-14] MEDS: acetaminophen 500 mg Tablet PO ×2 (01:39→23:25)
[2024-05-14] MEDS: oxyCODONE 5 mg IR Tab/Cap PO ×3 (02:54→18:37)
[2024-05-14 05:22] LABS: Eosinophils # 0.1 10^3/uL (0.0-0.8); Eosinophils % 1.9 %; Hematocrit 34.9 % (36-47); Lymphocytes # 1.5 10^3/uL (0.8-4.8); Lymphocytes % 23.4 %; Mean Corpuscular HGB Conc 32.1 g/dL (30-55); Mean Corpuscular Hemoglobin 29.6 pg (27-33); Mean Corpuscular Volume 92.3 fl (85-98); Mean Platelet Volume 11.8 fL (7.4-10.4); Monocytes # 0.8 10^3/uL (0.2-0.9); Monocytes % 13.4 %; Neutrophils # 3.82 10^3/uL (1.8-7.7); Nucleated Red Blood Cells % 0 %; Platelet Count 285 10^3/cmm (157-399); Red Blood Count 3.78 10^6/uL (3.85-5.65); White Blood Count 6.27 10^3/uL (3.29-11.43)
[2024-05-14 05:31] LABS: Erythrocyte Sedimentation Rate 16 mm/hr (0-15)
[2024-05-14 05:44] LABS: Alanine Aminotransferase 6 U/L (0-33); Albumin Level 3.3 g/dL (3.5-5.2); Alkaline Phosphatase 119 U/L (35-105); Anion Gap 13.8 (5-19); Aspartate Amino Transferase 15 U/L (0-32); Blood Urea Nitrogen 7 mg/dL (8-23); Calcium 9.1 mg/dL (8.5-10.5); Carbon Dioxide 23 mmol/L (22-29); Chloride 111 mmol/L (98-107); Creatinine Clr Calc Pharmacy 49.5951; Globulin 2.5 g/dL (1.3-4.6); Glucose 111 mg/dL (65-115); Osmolality Calculated 297 mOsm/kg (285-295); Phosphorus 2.5 mg/dL (2.5-4.5); Potassium 3.8 mmol/L (3.5-5.1); Sodium 144 mmol/L (136-145); Total Bilirubin 0.6 mg/dL (0.15-1.2); Total Protein 5.8 g/dL (6.6-8.7)
[2024-05-14 05:46] LABS: C Reactive Protein 14.1 mg/L (0.0-4.9)
[2024-05-14 05:56] LABS: Chol HDL Ratio 3.62 mg/dL (0.0-4.40); Cholesterol 163 mg/dL (0-200); HDL Cholesterol 45 mg/dL (60-100); LDL Cholesterol Calculated 103 mg/dL (50-129); LDL HDL Ratio 2.29 RATIO (0.00-3.22); NT Pro B Type Natriuretic Pept 668 pg/mL (0-450); Triglycerides 74 mg/dL (0-150)
--- NOTE | 2024-05-14 09:04 | PC.CHAP ---
Pastoral Care Encounter/Spiritual Assessment Type of Contact [] Declined plaster foreman visit [] Patient/Family/Request visit [] Outpatient visit [] Follow-up visit [] Physician referral [] Code/Alert [x] Routine visit [] Staff referral [] Actively dying [] Patient sleeping [] Family support [] [] Out of room [] Palliative care [] [] Receiving care in room [] Pre-surgical visit [] Trauma [] Long length of stay [] ICU visit [] Other: Relational/Emotional Strength [x] Patient feels connected with others/family/visitors/staff [] Distress [] Loneliness/isolation [] Abandonment Spirituality of Patient [x] Person of [place] [] Attends Buddhism of their [place] [x] Believes in Prayer [] Reads Bible or Yazidism materials [] There are Spiritual issues to be addressed 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 [x] Prayer [x] Active listening [] Non-anxious presence [x] Spiritual/emotional support [] Crisis/trauma care [] Spiritual counseling [] Bereavement support [] Provided bereavement packet [] Provided Bible/devotional materials [] Provided toy/stuffed animal, coloring book to patient or family member [] Provided Communion [] Anointing/[place] [] Salvation [x] Completed spiritual assessment [] Other: Impact on Illness or Injury [] Angry [] Fearful [] Anxious [] Often cries [] Exhaustion [] Unable to work [] Unable to attend church [] Unable to walk/stand [] Unable to read [] Unable to drive [] Unable to eat/drink [] Unable to sleep [] Unable to be with family [] Patient intubated [] Other: Summary Time spent with patient 5 min
[2024-05-14] MEDS: clopidogrel 75 mg Tablet PO (09:29)
[2024-05-14] MEDS: predniSONE 10 mg Tablet 20 MG PO (09:29)
[2024-05-14] MEDS: pantoprazole DR 40 mg Tablet PO ×2 (09:29→18:37)
[2024-05-14] MEDS: D5-NS 0.45% + KCL 20 mEq 20 MEQ/1,000 ML BAG 75 MEQ IV (09:30)
--- NOTE | 2024-05-14 10:30 | MR_ITS ---
WS: [id number] MRI HEAD WITHOUT CONTRAST TECHNIQUE: Sagittal T1, T2 axial, T2 axial FLAIR, axial and coronal T1 images, axial susceptibility w eighted imaging, axial diffusion weighted images, and coronal T2 images were obtained. CLINICAL INFORMATION: confusion, weakness, word finding difficulty, gait instabili COMPARISON: CT 05/13/2024 FINDINGS: No evidence of restricted diffusion to suggest acute ischemia. Ventricular system and basal cisterns are patent. Mild small vessel changes. Mild parenchymal volume loss. A few tiny chronic lacunar infar cts in the RIGHT cerebellum. Normal vascular flow voids at the skull base. No extra-axial fluid colle ctions. No evidence of mass or mass effect. Paranasal sinuses are well aerated. Small amount of fluid in the sphenoid sinus. Mastoid air cells are well aerated. No hemosiderin on the susceptibly weighted images. Normal optic chiasm and pituitary infundibulum. Mo derate symmetric atrophy temporal lobes and hippocampal formations. MR/MR head wo con* [id number] IMPRESSION: 1. No evidence of restricted diffusion to suggest acute ischemia. 2. Mild small vessel changes with mild parenchymal volume loss. 3. A few tiny chronic lacunar infarcts in the RIGHT cerebellum. 4. Mild sphenoid sinusitis. 5. Moderate symmetric atrophy temporal lobes and hippocampal formations.
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
[2024-05-15] VITALS (8 sets, daily range): BP systolic 147–176; BP diastolic 61–77; PULSE 72–80; RESP 15–17; TEMP 36.6–36.8; O2SAT 95–98; BMI 32.8
[2024-05-15] MEDS: oxyCODONE 5 mg IR Tab/Cap PO ×2 (03:43→11:08)
[2024-05-15] MEDS: clopidogrel 75 mg Tablet PO (11:08)
[2024-05-15] MEDS: pantoprazole DR 40 mg Tablet PO (11:08)
[2024-05-15] MEDS: predniSONE 10 mg Tablet 20 MG PO (11:08)
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
[2024-05-15] MEDS: gabapentin 300 mg Capsule PO (12:41)
[2024-05-15] MEDS: amlodipine 10 mg Tablet PO (12:41)
[2024-05-15] MEDS: duloxetine 20 mg Capsule PO (12:43)
--- NOTE | 2024-05-15 14:25 | PC.NURSE ---
Discharge orders were put in this morning and were held until clearance from consulted physician, Dr. Gustafson. Dr. Gustafson verbally told this nurse patient was able to discharge. This nurse called Ania Lam for transportation for discharge. Ride should arrive to pick patient in the next 30 minutes.
[2024-05-15 14:44] LABS: Lyme AB Screen <0.90 index
[2024-05-20 16:24] LABS: RMSF IGG NOT DETECTED; RMSF IGM NOT DETECTED
[2024-05-21 17:03] LABS: E. Chaffeensis AB IGG <1:64; E. Chaffeensis AB IGM <1:20
== END 2024-05-15 14:55 | disposition home or self-care (01) | DRG 948 ==
LOC: ER 15:00 → MEDSURG 15:08
PROVIDERS: Admitting Provider Hospitalist; Emergency Provider Emergency Medicine; PCP Family Medicine; Visit Provider Family Medicine
DX: R41.82 Altered mental status, unspecified (principal); F19.232 Other psychoactive substance dependence with withdrawal with perceptual disturbance; T50.996A Underdosing of other drugs, medicaments and biological substances, initial encounter; R79.89 Other specified abnormal findings of blood chemistry; R03.0 Elevated blood-pressure reading, without diagnosis of hypertension; G89.29 Other chronic pain; G58.7 Mononeuritis multiplex; M60.9 Myositis, unspecified; G62.9 Polyneuropathy, unspecified; G25.81 Restless legs syndrome; R82.90 Unspecified abnormal findings in urine; F32.A Depression, unspecified; F41.9 Anxiety disorder, unspecified; Z60.8 Other problems related to social environment; Z91.81 History of falling; Z91.128 Patient's intentional underdosing of medication regimen for other reason; Y92.9 Unspecified place or not applicable; Z79.891 Long term (current) use of opiate analgesic; Z79.52 Long term (current) use of systemic steroids; Z79.02 Long term (current) use of antithrombotics/antiplatelets
CPT/HCPCS: 36415; 70450; 70496; 70498; 70551; 71045; 72170; 80053; 80061; 80306; 81003; 81015; 82140; 82550; 83735; 83880; 84100; 84443; 84484; 85025; 85610; 85651; 85730; 86140; 86618; 86666; 86757; 93005; 93306; 97110; 97116; 97161; 97166; 99285; G0378; J7030; J7512; Q9967

== ENCOUNTER → 2024-06-06 12:54 | Outpatient (BNVA) | payer MEDICARE, OTHER, SELFPAY | PROVIDERS: PCP Family Medicine; Referring Provider Family Medicine; Visit Provider Specialist | DX: G92.9 Unspecified toxic encephalopathy (principal); M35.3 Polymyalgia rheumatica; G58.7 Mononeuritis multiplex; R41.3 Other amnesia; G89.29 Other chronic pain; G62.9 Polyneuropathy, unspecified; M60.9 Myositis, unspecified; M50.00 Cervical disc disorder with myelopathy, unspecified cervical region; M17.0 Bilateral primary osteoarthritis of knee | CPT/HCPCS: 96116; 99215 ==

== ENCOUNTER → 2024-07-02 15:07 | Outpatient (BNVA) | payer MEDICARE, OTHER, SELFPAY | PROVIDERS: PCP Family Medicine; Visit Provider Specialist | DX: G89.29 Other chronic pain; G62.9 Polyneuropathy, unspecified; M25.512 Pain in left shoulder; M89.8X1 Other specified disorders of bone, shoulder; G58.7 Mononeuritis multiplex; M35.3 Polymyalgia rheumatica; M17.11 Unilateral primary osteoarthritis, right knee; M17.12 Unilateral primary osteoarthritis, left knee; G92.9 Unspecified toxic encephalopathy | CPT/HCPCS: 99214 ==

== ENCOUNTER → 2024-08-07 13:02 | Outpatient (BNVA) | payer MEDICARE, OTHER, SELFPAY | PROVIDERS: PCP Family Medicine; Visit Provider Family Medicine | DX: M35.3 Polymyalgia rheumatica (principal); G89.29 Other chronic pain; G62.9 Polyneuropathy, unspecified | CPT/HCPCS: 80053; 85025 ==

== ENCOUNTER 2024-08-28 12:22 | Outpatient (CLI) | payer MEDICARE, OTHER, SELFPAY ==
[2024-08-28 14:01] LABS: Folate Level 15.4 ng/mL (4.8-37.3)
[2024-08-28 14:04] LABS: Vitamin B12 1576 pg/mL (232-1245)
== END 2024-08-28 12:23 | disposition home or self-care (01) ==
LOC: LAB 12:23
PROVIDERS: PCP Family Medicine; Visit Provider Family Medicine
DX: D53.9 Nutritional anemia, unspecified (principal); E03.9 Hypothyroidism, unspecified
CPT/HCPCS: 36415; 82607; 82746; 84443

== ENCOUNTER → 2024-10-28 11:18 | Outpatient (BNVA) | payer MEDICARE, OTHER, SELFPAY | PROVIDERS: PCP Family Medicine; Visit Provider Family Medicine | DX: R53.1 Weakness (principal); G89.29 Other chronic pain; R60.9 Edema, unspecified; K74.60 Unspecified cirrhosis of liver; E03.9 Hypothyroidism, unspecified | CPT/HCPCS: 80053; 84443; 85025 ==

== ENCOUNTER 2024-10-29 14:56 | Emergency (ER) | payer MEDICARE, OTHER, SELFPAY ==
[2024-10-29] VITALS (15 sets, daily range): BP systolic 123–146; BP diastolic 54–78; PULSE 76–96; RESP 15–98; TEMP 36.6–36.7; O2SAT 21–100; BMI 30.4
[2024-10-29 16:58] LABS: Basophils % 0.1 %; Eosinophils # 0.1 10^3/uL (0.0-0.8); Eosinophils % 1.2 %; Lymphocytes # 2.6 10^3/uL (0.8-4.8); Lymphocytes % 37.3 %; Mean Corpuscular HGB Conc 29.1 g/dL (30-55); Mean Corpuscular Hemoglobin 26.9 pg (27-33); Mean Corpuscular Volume 92.4 fl (85-98); Mean Platelet Volume 9.7 fL (7.4-10.4); Monocytes # 0.7 10^3/uL (0.2-0.9); Monocytes % 10.8 %; Neutrophils # 3.44 10^3/uL (1.8-7.7); Neutrophils % 50.5 %; Nucleated Red Blood Cells % 0 %; Platelet Count 609 10^3/cmm (157-399); Red Blood Count 2.49 10^6/uL (3.85-5.65); White Blood Count 6.83 10^3/uL (3.29-11.43)
[2024-10-29 17:19] LABS: INR 0.98 (0.8-1.2)
[2024-10-29 17:22] LABS: Alanine Aminotransferase 10 U/L (0-33); Albumin Level 3.6 g/dL (3.5-5.2); Alkaline Phosphatase 95 U/L (35-105); Anion Gap 13.3 (5-19); Aspartate Amino Transferase 17 U/L (0-32); Blood Urea Nitrogen 13 mg/dL (8-23); Calcium 9.7 mg/dL (8.5-10.5); Carbon Dioxide 27 mmol/L (22-29); Chloride 106 mmol/L (98-107); Creatinine Clr Calc Pharmacy 47.5916; Globulin 2.4 g/dL (1.3-4.6); Glucose 91 mg/dL (65-115); Iron 16 ug/dL (37-145); Osmolality Calculated 294 mOsm/kg (285-295); Percent Saturation 5.2 % (20-50); Potassium 4.3 mmol/L (3.5-5.1); Sodium 142 mmol/L (136-145); Total Bilirubin 0.2 mg/dL (0.15-1.2); Total Iron Binding Capacity 307 mcg/dl; Unsaturated Iron Binding 291 ug/dL (112-347)
--- NOTE | 2024-10-29 18:42 | W.ED.GENADLT ---
HPI - General Adult General: Chief complaint: General Medical Stated complaint: hemoglobin low dr sent Time Seen by Provider: 10/29/24 18:29 History of Present Illness: Patient is over by her PCP for low hemoglobin. Approximately 6.4 when I checked it. Patient's been having fatigue since her hospital stay in April. Patient is lost 45 pounds since then. Patient did report a small amount of blood last week after hard stool but other than that no obvious sources of blood loss. Patient does use frequent ibuprofen and naproxen. Related Data Home Medications ?Medication ?Instructions ?Recorded ?Confirmed ibuprofen 200 mg tablet (Motrin IB) 200 mg PO BID PRN Pain 10/28/19 08/12/24 clopidogrel 75 mg tablet 75 mg PO DAILY 05/13/24 10/28/24 Previous Rx's ?Medication ?Instructions ?Recorded pantoprazole 20 mg tablet,delayed See Rx Instructions .Route 02/13/24 release .COMPLEX #60 tabs acyclovir 5 % topical ointment See Rx Instructions .Route 07/14/24 .COMPLEX #15 grams prednisone 10 mg tablet See Rx Instructions .Route 09/08/24 .COMPLEX #90 tabs furosemide 20 mg tablet 20 mg PO DAILY edema #30 tabs 10/28/24 ferrous sulfate 325 mg (65 mg 325 mg PO DAILY #90 tabs 10/30/24 iron) tablet Allergies Allergy/AdvReac Type Severity Reaction Status Date / Time No Known Allergies Allergy Verified 10/29/24 15:21 Review of Systems General: Reports: 10 or more systems reviewed and unremarkable except in HPI and below PFS ED PFSH: Medical History 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 Chronic narcotic use Restless leg syndrome Chronic left shoulder pain Arthritis Back Pain Doing well on current meds DDD (degenerative disc disease), lumbar Degenerative lumbar spinal stenosis Acquired spondylolisthesis Cervical disc disorder with myelopathy, unspecified cervical region Chronic neck and back pain Pain of right upper extremity Degenerative joint disease of both lower legs Radiculopathy, site unspecified Surgical History History of total left knee replacement Status post carpal tunnel release bilateral in 1979, left 2022 History of total right knee replacement Family History Other CAD (coronary artery disease) Hypertension Social History Smoking and tobacco/nicotine status: never used tobacco/nicotine Second hand smoke exposure: No Alcohol intake: never Substance/Drug Use: never 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 Physical Exam Const: COMMON NORMALS: no acute distress, average body habitus, patient oriented x3, no limitations, healthy appearing, alert and well nourished HENMT: COMMON NORMALS: normocephalic, hearing grossly normal bilaterally, external ears normal and Normal external nose present HEAD & SCALP: normocephalic NOSE: Normal external nose present EXTERNAL EAR: Yes external ears normal Neck/C-Spine: COMMON NORMALS: no JVD Chest: COMMONS NORMALS: normal inspection of the chest and normal palpation of entire chest wall Resp: COMMON NORMALS: normal respiratory effort, No retractions, No use of accessory muscles and clear to auscultation bilaterally AUSCULTATION: clear to auscultation bilaterally Cardio: COMMON NORMALS: no JVD, regular rate, regular rhythm, S1 normal heart sound present, S2 normal heart sound present, No gallops present (Cardio), No clicks present (Cardio), No murmurs present (Cardio) and No rub (Cardio) RATE: regular rate RHYTHM: regular rhythm HEART SOUNDS: S1 normal heart sound present and S2 normal heart sound present GI: COMMON NORMALS: Normal to inspection, nondistended, normoactive bowel sounds present, Soft to palpation, non-tender, No hepatosplenomegaly present and no masses PALPATION: Yes Soft to palpation and Yes No hepatosplenomegaly present Neuro: COMMON NORMALS: patient oriented x3 SENSORIUM/ORIENTATION: Yes alert Course Vital Signs: Vital signs: Vital Signs Temperature 98.0 F 10/30/24 01:54 Pulse Rate 82 10/30/24 02:30 Respiratory Rate 20 H 10/30/24 02:30 Blood Pressure 134/66 10/30/24 02:30 Pulse Oximetry 97 10/30/24 02:30 Oxygen Delivery Me thod Room Air 10/29/24 23:30 [facility] - General Adult Medical Decision Making Patient labs drawn and initial hemoglobin was 6.7, patient was transfused 2 units, change in hemoglobin Posttransfusion hemoglobin 9.0. Patient is iron deficient. Patient will be discharged home on iron. Medical Records I reviewed the patient's medical records. Lab Data I reviewed the patient's lab results. 10/30/24 02:49 10/29/24 16:40 Laboratory Results WBC 5.76 10^3/uL (3.29-11.43) 10/30/24 02:49 RBC 3.18 10^6/uL (3.85-5.65) L 10/30/24 02:49 Hgb 9.00 g/dL (11.27-16.99) L D 10/30/24 02:49 Hct 28.5 % (36-47) L 10/30/24 02:49 MCV 89.6 fl (85-98) 10/30/24 02:49 MCH 28.3 pg (27-33) 10/30/24 02:49 MCHC 31.6 g/dL (30-55) D 10/30/24 02:49 RDW 15.9 % (12.1-15.1) H 10/30/24 02:49 Plt Count 494 10^3/cmm (157-399) H 10/30/24 02:49 MPV 9.5 fL (7.4-10.4) 10/30/24 02:49 Neut % (Auto) 43.9 % 10/30/24 02:49 Lymph % (Auto) 39.2 % 10/30/24 02:49 [place] % (Auto) 13.4 % 10/30/24 02:49 Eos % (Auto) 3.1 % 10/30/24 02:49 Baso % (Auto) 0.2 % 10/30/24 02:49 Neut # (Auto) 2.53 10^3/uL (1.8-7.7) 10/30/24 02:49 Lymph # (Auto) 2.3 10^3/uL (0.8-4.8) 10/30/24 02:49 [place] # (Auto) 0.8 10^3/uL (0.2-0.9) 10/30/24 02:49 Eos # (Auto) 0.2 10^3/uL (0.0-0.8) 10/30/24 02:49 Baso # (Auto) 0.0 10^3/uL (0.0-0.1) 10/30/24 02:49 Nucleated RBC % (auto) 0 % 10/30/24 02:49 Nucleated RBCs # 0.0 /100WBC 10/30/24 02:49 PT 13.70 SECONDS (12.1-14.9) 10/29/24 16:40 INR 0.98 (0.8-1.2) 10/29/24 16:40 Sodium 142 mmol/L (136-145) 10/29/24 16:40 Potassium 4.3 mmol/L (3.5-5.1) 10/29/24 16:40 Chloride 106 mmol/L (98-107) 10/29/24 16:40 Carbon Dioxide 27 mmol/L (22-29) 10/29/24 16:40 Anion Gap 13.3 (5-19) 10/29/24 16:40 BUN 13 mg/dL (8-23) 10/29/24 16:40 Creatinine 0.8 mg/dL (0.5-0.9) 10/29/24 16:40 GFR Calculation Not Reportable 10/29/24 16:40 Glucose 91 mg/dL (65-115) 10/29/24 16:40 Calculated Osmolality 294 mOsm/kg (285-295) 10/29/24 16:40 Calcium 9.7 mg/dL (8.5-10.5) 10/29/24 16:40 Iron 16 ug/dL (37-145) L 10/29/24 16:40 Iron Cancelled 10/29/24 16:40 TIBC 307 mcg/dl 10/29/24 16:40 % Saturation 5.2 % (20-50) L 10/29/24 16:40 Unsat Iron Binding 291 ug/dL (112-347) 10/29/24 16:40 Total Bilirubin 0.2 mg/dL (0.15-1.2) 10/29/24 16:40 AST 17 U/L (0-32) 10/29/24 16:40 ALT 10 U/L (0-33) 10/29/24 16:40 Alkaline Phosphatase 95 U/L (35-105) 10/29/24 16:40 Total Protein 6.0 g/dL (6.6-8.7) L 10/29/24 16:40 Albumin 3.6 g/dL (3.5-5.2) 10/29/24 16:40 Globulin 2.4 g/dL (1.3-4.6) 10/29/24 16:40 Blood Type B Positive 10/29/24 16:40 Rho(D) Type Rh positive 10/29/24 16:40 Antibody Screen Negative 10/29/24 16:40 Crossmatch See Detail 10/29/24 16:40 All radiology interpretation(s) finalized by discharge Discharge Plan Discharge Patient Disposition: Home Clinical Impression: Iron (Fe) deficiency anemia Qualifiers: Iron deficiency anemia type: unspecified iron deficiency Qualified Code(s): D50.9 - Iron deficiency anemia, unspecified Condition: Stable Prescriptions: New ferrous sulfate 325 mg (65 mg iron) tablet 325 mg PO DAILY Qty: 90 0RF No Action ibuprofen [Motrin IB] 200 mg tablet 200 mg PO BID PRN (Reason: Pain) furosemide 20 mg tablet 20 mg PO DAILY Qty: 30 0RF pantoprazole 20 mg tablet,delayed release (DR/EC) See Rx Instructions .ROUTE .COMPLEX Qty: 60 11RF Dose Instruction: TAKE ONE TABLET BY MOUTH TWICE DAILY *take 30 minutes before breakfast and 30 minutes before dinner ON empty stomach* Rx Instructions: TAKE ONE TABLET BY MOUTH TWICE DAILY *take 30 minutes before breakfast and 30 minutes before dinner ON empty stomach* acyclovir 5 % ointment See Rx Instructions .ROUTE .COMPLEX Qty: 15 3RF Dose Instruction: APPLY TO THE AFFECTED AREA(S) six times a DAY FOR COLD SORES FOR SEVEN DAYS Rx Instructions: APPLY TO THE AFFECTED AREA(S) six times a DAY FOR COLD SORES FOR SEVEN DAYS prednisone 10 mg tablet See Rx Instructions .ROUTE .COMPLEX Qty: 90 1RF Dose Instruction: 2.5t BY MOUTH EVERY DAY FOR arthritis pain or inflammation Rx Instructions: 2.5t BY MOUTH EVERY DAY FOR arthritis pain or inflammation clopidogrel 75 mg tablet 75 mg PO DAILY Discharge Orders: Discharge ED (Routine); Ordered 10/30/24 Ordered By: Vijay Dejesus Referrals: Sudheer Canchola DO [Primary Care Provider] - 1 week Patient Instructions: Iron Rich Diet (ED), Anemia (ED) Activity Restrictions/Additional Instructions: Thank you for choosing [facility] for your healthcare needs today. Please realize that you were seen in the emergency department and that we are providing you with an emergency medical screening exam and this may not be a complete and all exclusive of all testing and/or medical workup we may need to determine your element or severity of your illness. It is very important that you follow-up as instructed with your primary care provider or specialist for the additional evaluation and to discuss your medical treatment plan. You may return to the emergency department should you have concerns or if your condition changes or worsens in any way. Print Language: Irish Coding Level of Care Code ED [employer] for Rosamaria Johns
[2024-10-30] VITALS (13 sets, daily range): BP systolic 124–149; BP diastolic 46–74; PULSE 80–97; RESP 15–21; TEMP 36.6–36.7; O2SAT 96–98
[2024-10-30 02:54] LABS: Basophils % 0.2 %; Eosinophils # 0.2 10^3/uL (0.0-0.8); Eosinophils % 3.1 %; Hematocrit 28.5 % (36-47); Lymphocytes # 2.3 10^3/uL (0.8-4.8); Lymphocytes % 39.2 %; Mean Corpuscular HGB Conc 31.6 g/dL (30-55); Mean Corpuscular Hemoglobin 28.3 pg (27-33); Mean Corpuscular Volume 89.6 fl (85-98); Mean Platelet Volume 9.5 fL (7.4-10.4); Monocytes # 0.8 10^3/uL (0.2-0.9); Monocytes % 13.4 %; Neutrophils # 2.53 10^3/uL (1.8-7.7); Neutrophils % 43.9 %; Nucleated Red Blood Cells % 0 %; Platelet Count 494 10^3/cmm (157-399); Red Blood Count 3.18 10^6/uL (3.85-5.65); Red Cell Distribution Width 15.9 % (12.1-15.1); White Blood Count 5.76 10^3/uL (3.29-11.43)
== END 2024-10-30 03:30 | disposition home or self-care (01) ==
PROVIDERS: Emergency Medicine; Emergency Provider Emergency Medicine; PCP Family Medicine
DX: D50.9 Iron deficiency anemia, unspecified (principal); Z79.02 Long term (current) use of antithrombotics/antiplatelets
CPT/HCPCS: 36415; 36430; 80053; 83540; 83550; 85025; 85610; 86850; 86900; 86920; 99284; P9016

== ENCOUNTER 2024-10-30 12:54 | Outpatient (CLI) | payer MEDICARE, OTHER, SELFPAY ==
[2024-10-30 13:28] LABS: Anion Gap 13.5 (5-19); Blood Urea Nitrogen 10 mg/dL (8-23); Calcium 9.6 mg/dL (8.5-10.5); Carbon Dioxide 27 mmol/L (22-29); Chloride 105 mmol/L (98-107); Glucose 107 mg/dL (65-115); Osmolality Calculated 292 mOsm/kg (285-295); Potassium 4.5 mmol/L (3.5-5.1); Sodium 141 mmol/L (136-145)
== END 2024-10-30 12:55 | disposition home or self-care (01) ==
LOC: LAB 12:57
PROVIDERS: PCP Family Medicine; Visit Provider Family Medicine
DX: N28.9 Disorder of kidney and ureter, unspecified (principal); R53.1 Weakness; G89.29 Other chronic pain; R60.9 Edema, unspecified; K74.60 Unspecified cirrhosis of liver
CPT/HCPCS: 36415; 80048

== ENCOUNTER → 2024-11-19 08:22 | Outpatient (BNVA) | payer MEDICARE, OTHER, SELFPAY | PROVIDERS: PCP Family Medicine; Visit Provider Specialist | DX: G92.9 Unspecified toxic encephalopathy (principal); M35.3 Polymyalgia rheumatica; M17.11 Unilateral primary osteoarthritis, right knee; M17.12 Unilateral primary osteoarthritis, left knee; G58.7 Mononeuritis multiplex | CPT/HCPCS: 99214 ==

== ENCOUNTER → 2024-11-27 11:32 | Outpatient (BNVA) | payer MEDICARE, OTHER, SELFPAY | PROVIDERS: PCP Family Medicine; Visit Provider Family Medicine | DX: Z79.52 Long term (current) use of systemic steroids (principal); D53.9 Nutritional anemia, unspecified; M35.3 Polymyalgia rheumatica; K74.60 Unspecified cirrhosis of liver; R60.9 Edema, unspecified | CPT/HCPCS: 80053; 82728; 82746; 83550; 85025 ==

== ENCOUNTER → 2025-01-19 12:30 | Outpatient (BNVA) | payer MEDICARE, OTHER, SELFPAY | PROVIDERS: PCP Family Medicine; Visit Provider Family Medicine | DX: K74.60 Unspecified cirrhosis of liver (principal); D53.9 Nutritional anemia, unspecified; M35.3 Polymyalgia rheumatica; R53.1 Weakness; Z79.891 Long term (current) use of opiate analgesic; Z79.52 Long term (current) use of systemic steroids | CPT/HCPCS: 80053; 85025 ==

== ENCOUNTER 2025-02-24 11:39 | Outpatient (CLI) | payer MEDICARE, OTHER, SELFPAY ==
--- NOTE | 2025-02-24 11:43 | XR_ITS ---
WS: [id number] XR foot RT min 3V* [id number] REASON FOR EXAM: M79.673 - Pain in unspecified foot FINDINGS: No acute fracture. Mild narrowing of the joint space with mild subchondral sclerosis and osteophytosis in the DIP and PIP joints of the second through the fifth toes. Mild valgus subluxation of the first MCP joint with minimal arthropathy. Mild narrowing with subchondral sclerosis in articulations of the Lisfranc joint. Mild narrowing with mild subchondral sclerosis in the intertarsal and Chopart joints in the midfoot. Minimal narrowing of the posterior subtalar joint with mild subchondral sclerosis. Small Achilles calcaneal enthesophyte. XR/XR foot RT min 3V* [id number] IMPRESSION: Mild osteoarthritis as above. No acute abnormality.
== END 2025-02-24 11:40 | disposition home or self-care (01) ==
PROVIDERS: PCP Family Medicine; Visit Provider Family Medicine
DX: M19.071 Primary osteoarthritis, right ankle and foot (principal); Z79.52 Long term (current) use of systemic steroids; M35.3 Polymyalgia rheumatica; M17.11 Unilateral primary osteoarthritis, right knee; M17.12 Unilateral primary osteoarthritis, left knee; R41.89 Other symptoms and signs involving cognitive functions and awareness; R60.9 Edema, unspecified; M25.774 Osteophyte, right foot; S93.331A Other subluxation of right foot, initial encounter; X58.XXXA Exposure to other specified factors, initial encounter; R93.6 Abnormal findings on diagnostic imaging of limbs; M77.31 Calcaneal spur, right foot
CPT/HCPCS: 73630; 80053; 85025

== ENCOUNTER 2025-03-22 16:51 | Inpatient (IN) | payer MEDICARE, OTHER, SELFPAY ==
[2025-03-22] VITALS (7 sets, daily range): BP systolic 104–144; BP diastolic 59–80; PULSE 80–116; RESP 14–18; TEMP 36.4–36.8; O2SAT 95–100
--- OUTSIDE RECORDS SUMMARY | 2025-03-22 16:55 | XMS_ITS | Clinical Summary ---
Author Organization [facility] Address [address] [place] [address] Care Team Providers Care Spot Welder Name Role Phone Unavailable Primary Care Provider Unavailabl e Allergies No known active allergies Medications clopidogreL (PLAVIX) 75 mg Tablet Take 75 mg by mouth. Active acyclovir (ZOVIRAX) 5 % Cream Apply to affected area 5 times daily. Active acyclovir (ZOVIRAX) 400 mg tablet Take 400 mg by mouth see administration instructions. Active amLODIPine (NORVASC) 10 mg tablet Take 10 mg by mouth daily. Active atorvastatin (LIPITOR) 40 mg tablet Take 40 mg by mouth daily. Active DULoxetine (CYMBALTA) 20 mg Capsule, Delayed Release(E.C.) Take 20 mg by mouth daily. Active gabapentin (NEURONTIN) 600 mg tablet Take 600 mg by mouth. Active ibuprofen (MOTRIN) 200 mg tablet Take 200 mg by mouth every 6 hours as needed for Pain, Mild. Active oxyCODONE (ROXICODONE) 10 mg tablet Take 10 mg by mouth every 6 hours as needed for Pain, Moderate. Active pantoprazole (PROTONIX) 20 mg Tablet, Delayed Release (E.C.) Take 20 mg by mouth daily. Active predniSONE (DELTASONE) 10 mg tablet Take 10 mg by mouth 1 time daily as needed. Active Active Problems No known active problems Encounters Date Type Department Care Team Description 03/11/2025 External Device Data ST[facility] ABSTRACTION Provider, Abstract 03/10/2025 External Device Data [facility] ABSTRACTION Provider, Abstract 02/12/2025 External Device Data [facility] ABSTRACTION Provider, Abstract 02/11/2025 External Device Data [facility] ABSTRACTION Provider, Abstract 02/10/2025 External Device Data ST[facility] ABSTRACTION Provider, Abstract from Last 3 Months Social History Tobacco Use Types Packs/Day Years Used Date Smoking Tobacco: Never Assessed Comments Unknown Sex and Gender Information Value Date Recorded Sex Assigned at Female 06/08/2024 4:38 PM CDT Legal Sex Female 8:49 AM CDT Gender Identity Female 06/08/2024 4:38 PM CDT Sexual Orientation Straight 06/08/2024 4: 38 PM CDT Last Filed Vital Signs Vital Sign Reading Time Taken Comments Blood Pressure - - Pulse - - Temperature - - Respiratory Rate - - Oxygen Saturation - - Inhaled Oxygen Concentration - - Weight 72.6 kg (160 lb) 06/05/2024 12:52 PM CDT Height 152.4 cm (5') 06/05/2024 12:52 PM CDT Body Mass Index 31.25 06/05/2024 12:52 PM CDT Plan of Treatment Health Maintenance Due Date Last Done Comments DTAP/TDAP/TD VACCINES (1 - Tdap) 1961 PNEUMOCOCCAL VACCINE 50+ YEARS (1 of 2 - PCV) 01/21/19 61 ZOSTER VACCINE (1 of 2) 01/22/1992 OSTEOPOROSIS SCREENING 2007 RSV VACCINE (60+ or ) (1 - 1-dose 75+ series) 2017 INFLUENZA VACCINE (#1) 2024 Insurance MEDICARE PART A AND B [facility]
--- OUTSIDE RECORDS SUMMARY | 2025-03-22 16:55 | XMS_ITS | Patient Health Record ---
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 Name Role Phone Sudheer Canchola DO Primary Care Provider Unavaildajuan Montes De Oca MD, Aneesh Unavailable [phone] Ozzie STEEN, Jas Unavailable Unavailable Trisha Miles Unavailable [phone] Allergies No Known Allergies Results Component Value Reference Range Notes Urine tox screen / MS if ind icated Reviewed date:08/11/2024 01:27:49 PM Interpretation:Consistent Performing Lab: Notes/Report: Consistent Reason For Referral No Information Medications Medication SIG (Take, Route, Frequency, Duration) Notes Start Date End Date Status ibuprofen 200 mg 1 tab(s) orally every 6 hours, as needed As needed Active acetaminophen-hydrocodo ne 325 mg-10 mg 1 tab orally Q4H prn pain (max 4/day; hold within 4H of planned sleep) for 28 days Do not fill prior to 04/17/25. ICD-10: G89.29 02/18/2025 Active rOPINIRole 0.5 mg 1 tab(s) orally 3 times a day Active predniSONE 10 mg 1 tab(s) orally as directed Active naproxen sodium 220 mg 1 tab(s) orally every 12 hours, as needed As needed Active acetaminophen-hydrocodo ne 325 mg-10 mg 1 tab orally Q4H prn pain (max 4/day; hold within 4H of planned sleep) for 28 days Do not fill prior to 03/20/25. ICD-10: G89.29 02/18/2025 Active acetaminophen-hydrocodo ne 325 mg-10 mg 1 tab orally Q4H prn pain (max 4/day; hold within 4H of planned sleep) for 28 days Do not fill prior to 02/20/25. ICD-10: G89.29 02/18/2025 Active acetaminophen 500 mg 2 tab(s) orally every 6 hours Active Social History Tobacco Use: Social History Observation Description Date Details (start date - stop date) Never Smoker NA - NA Tobacco use: Question Answer Notes : nonsmoker AUDIT-C (Standard) Question Answer Notes Did you have a drink containing alcohol in the p ast year? 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 analgesic (Z79.891) Active confirmed Problem Sleep disorder (07772693) Other sleep disorders (G47.8) Active confirmed Problem Chronic pain (48627241) Other chronic pain (G89.29) Active confirmed Problem Disorder of lumbar disc (548896820) Other intervertebral disc disorders, 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) Active confirmed Problem Radiculopathy (21006947) Radiculopathy, site unspecified (M54.10) Active confirmed Problem Post-laminectomy syndrome (41202874) Postlaminectomy syndrome, not elsewhere classified (M96.1) Active confirmed Problem Long-term current use of drug therapy (256881860) 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.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) Active confirmed Problem Vertebrogenic low back pain (123133732724013 101) 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 Vital Signs Temperature 93.8 degrees Fahrenheit 02/18/2025 Blood pressure diastolic 73 mm Hg 12/24/2024 Oximetry 98 % 02/18/2025 Height 60 in 02/18/2025 Blood pressure systolic 150 mm Hg 12/24/2024 Weight 148.6 lbs 12/24/2024 BMI 29.02 kg/m2 12/24/2024 Encounters Encounter Location Date Provider Diagnosis [facility] [address] [place], [place] [id number] 08/11/2024 Trisha Sneed Vertebrogenic low ba ck pain M54.51 ; Spondylosis without myelopathy or radiculopathy, lumbar region M47.816 ; Sacroiliitis, not elsewhere classified M46.1 ; Other intervertebral disc disorders, lumbar region M51.86 ; Postlaminectomy syndrome, not elsewhere classified M96.1 ; Other sleep disorders G47.8 and 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 Z79.899 [facility] [address] [place], [place] [id number] 08/20/2024 Aneesh Montes De Oca Vertebrogenic low ba ck pain M54.51 ; Postlaminectomy syndrome, not elsewhere classified M96.1 ; Other sleep disorders G47.8 and Other jail (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 therapy Z79.899 [facility] [address] [place], [place] [id number] 09/03/2024 Aneesh Montes De Oca Vertebrogenic low ba ck pain M54.51 ; Other chronic pain G89.29 ; Postlaminectomy syndrome, not elsewhere classified M96.1 ; Other sleep disorders G47.8 and Other jail (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 therapy Z79.899 [facility] [address] [place], [place] [id number] 10/29/2024 Aneesh Montes De Oca Vertebrogenic low ba ck pain M54.51 ; Other chronic pain G89.29 ; Postlaminectomy syndrome, not elsewhere classified M96.1 and Other sleep disorders G47.[address] [facility] [address] [place], [place] [id number] 12/24/2024 Aneesh Montes De Oca Vertebrogenic low ba ck pain M54.51 ; Other chronic pain G89.29 ; Postlaminectomy syndrome, not elsewhere classified M96.1 and Other sleep disorders G47.8 [facility] [address] [place], [place] [phone] 02/18/2025 Aneesh Montes De Oca Vertebrogenic low ba ck pain M54.51 ; Other chronic pain G89.29 and Other sleep disorders G47.8 Assessments Encounter Date Diagnosis (ICD Code) Assessment Notes Treatment Notes Treatment Clinical Notes Section Notes 02/18/2025 Other chronic pain (ICD-10 - G89.29) Patient reports that taking the pain medication allows her to complete light housekeeping chores and to sew. Plan to continue oral opioid medication at today's visit. 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 08/20/2024 Postlaminectomy syndrome, not elsewhere classified (ICD-10 - M96.1) Consider SCS trial for patient's postlaminectomy syndrome and significant spinal stenosis. Verbal and written information provided patient on 08/20/24. RADIOLOGIST'S IMPRESSION OF T-SPINE MRI ON 07/10/24: Degenerative change at T12-L1 with mild narrowing of the spinal canal. The remaining spinal canal and neural foramen are patent. RADIOLOGIST'S IMPRESSION OF L-SPINE MRI ON 06/26/24: 1. Vague area of abnormal signal and enhancement in the right L3 vertebral body. An atypical hemangioma, hypointense on T1 is a consideration. A solitary metastasis is unlikely. Obtain bone scan correlation as clinically indicated. 2. Small hemangioma in the anterior superior L1 vertebral body. 3. Degenerative changes and significant central canal and foraminal narrowing from L2-3 to L4-5 as described in the report. 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 Patient desires to resume prior efficacious hydrocone Rx. Plan to initiate oral opioid medication management at today's visit. RADIOLOGIST'S IMPRESSION OF T-SPINE MRI ON 07/10/24: Degenerative change at T12-L1 with mild narrowing of the spinal canal. The remaining spinal canal and neural foramen are patent. RADIOLOGIST'S IMPRESSION OF L-SPINE MRI ON 06/26/24: 1. Vague area of abnormal signal and enhancement in the right L3 vertebral body. An atypical hemangioma, hypointense on T1 is a consideration. A solitary metastasis is unlikely. Obtain bone scan correlation as clinically indicated. 2. Small hemangioma in the anterior superior L1 vertebral body. 3. Degenerative changes and significant central canal and foraminal narrowing from L2-3 to L4-5 as described in the report. 09/03/2024 Other chronic pain (ICD-10 - G89.29) Patient reports that taking the pain medicaiton allows her to rest better. Plan to continue oral opioid medication management. 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 08/11/2024 Spondylosis without myelopathy or radiculopathy, lumbar region (ICD-10 - M47.816) Consider interventional treatment pending evaluation by Dr. Montes De Oca. 08/11/2024 Vertebrogenic low back pain (ICD-10 - M54.51) Plan to obtain 2023 MRI LSP report from [facility]. Consider treatment options pending review of imaging studies and evaluation by Dr. Montes De Oca. 10/29/2024 Other chronic pain (ICD-10 - G89.29) Patient reports that taking the pain medication allows her to participate in Physical Therapy. Plan to continue oral opioid medication management. 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 02/18/2025 Other sleep disorders (ICD-10 - G47.8) Plan to restrict opioid usage in relation to sleep for safety concerns. 10/29/2024 Postlaminectomy syndrome, not elsewhere classified (ICD-10 - M96.1) Consider SCS trial for patient's postlaminectomy syndrome and significant spinal stenosis. Verbal and written information provided patient on 08/20/24. Patient has deferred on this treatment option thus far. 08/11/2024 Sacroiliitis, not elsewhere classified (ICD-10 - M46.1) Consider interventional treatment pending evaluation by Dr. Montes De Oca. 09/03/2024 Postlaminectomy syndrome, not elsewhere classified (ICD-10 - M96.1) Consider SCS trial for patient's postlaminectomy syndrome and significant spinal stenosis. Verbal and written information provided patient on 08/20/24. 08/20/2024 Other sleep disorders (ICD-10 - G47.8) Consider completion of a sleep study. Plan to restrict opioid usage in relation to sleep for safety concerns: patient has verbalized understanding to hold short-acting opioids within four hours of planned sleep (she stated that she does not get very much sleep - for jail duration). Patient has been counseled on the risks of sleep apnea (if present), with or without opioid and / or other sedative usage, and the patient verbalized understanding and acceptance of the increased risk (sleep apnea, respiratory depression, ) with opioid and / or sedative substance usage. Patient has been counseled that synergistic risk occurs with concomitant opioid and sedative usage. Patient has been counseled to hold opioid and / or sedative substances prior to planned sleep or dangerous activities and patient verbalized understanding that noncompliance would be at patient's increased risk. RADIOLOGIST'S IMPRESSION OF T-SPINE MRI ON 07/10/24: Degenerative change at T12-L1 with mild narrowing of the spinal canal. The remaining spinal canal and neural foramen are patent. RADIOLOGIST'S IMPRESSION OF L-SPINE MRI ON 06/26/24: 1. Vague area of abnormal signal and enhancement in the right L3 vertebral body. An atypical hemangioma, hypointense on T1 is a consideration. A solitary metastasis is unlikely. Obtain bone scan correlation as clinically indicated. 2. Small hemangioma in the anterior superior L1 vertebral body. 3. Degenerative changes and significant central canal and foraminal narrowing from L2-3 to L4-5 as described in the report. 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 Plan to continue oral opioid medication management. 12/24/2024 Postlaminectomy syndrome, not elsewhere classified (ICD-10 - M96.1) Consider SCS trial for patient's postlaminectomy syndrome and significant spinal stenosis. Verbal and written information provided patient on 08/20/24. Patient has deferred on this treatment option thus far. 08/20/2024 Other jail (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 therapy (ICD-10 - Z79.899) Patient has received the Opioid Analgesic [facility] Patient Counseling Guide. Patient has had opportunity to read the Guide and ask questions pertaining to the Guide. Patient has been advised on 08/20/24 that any suspected patient misuse, abuse, or diversion of controlled substances (i.e. opioids/narcotics /pain killers) WILL result in dissolution of treatment from this clinic. Patients adhering to the concepts contained within the patient's Treatment Agreement will be protected from such termination of care. Patient signed an opioid consent form on 08/20/24. Patient was given a copy of the Treatment Agreement, signed by patient on 06/18/24. 2022 opioid (OUD) risk tool score = 0. This places the patient in the low risk category. RADIOLOGIST'S IMPRESSION OF T-SPINE MRI ON 07/10/24: Degenerative change at T12-L1 with mild narrowing of the spinal canal. The remaining spinal canal and neural foramen are patent. RADIOLOGIST'S IMPRESSION OF L-SPINE MRI ON 06/26/24: 1. Vague area of abnormal signal and enhancement in the right L3 vertebral body. An atypical hemangioma, hypointense on T1 is a consideration. A solitary metastasis is unlikely. Obtain bone scan correlation as clinically indicated. 2. Small hemangioma in the anterior superior L1 vertebral body. 3. Degenerative changes and significant central canal and foraminal narrowing from L2-3 to L4-5 as described in the report. 09/03/2024 Other sleep disorders (ICD-10 - G47.8) Consider completion of a sleep study. 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 10/29/2024 Other sleep disorders (ICD-10 - G47.8) Consider a sleep study. Plan to restrict opioid usage in relation to sleep for safety concerns. 08/11/2024 Other intervertebral disc disorders, lumbar region (ICD-10 - M51.86) Consider interventional treatment pending evaluation by Dr. Montes De Oca. 08/11/2024 Postlaminectomy syndrome, not elsewhere classified (ICD-10 - M96.1) Plan to obtain Operative Note from [facility]. Consider interventional treatment pending evaluation by Dr. Montes De Oca. 09/03/2024 Other jail (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 therapy (ICD-10 - Z79.899) Patient has a total daily MED of 40. This places the [facility] in the [facility] moderate risk category for total daily opioid usage. Patient has refused offer of a Narcan nasal spray prescription. 2022 opioid (OUD) risk tool score = 0. This places the patient in the low risk category. 12/24/2024 Other sleep disorders (ICD-10 - G47.8) Consider a sleep study. Plan to restrict opioid usage in relation to sleep for safety concerns. 08/11/2024 Other sleep disorders (ICD-10 - G47.8) Consider completion of a sleep study. 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 2022 opioid (OUD) risk tool score = 0. This places the patient in the low risk category. Plan urine toxicology screen today in anticipation of possibly starting opioid therapy at future visit as well as to assess for any prescribed, unprescribed, and / or illicit controlled substance(s). 08/20/2024 Other RADIOLOGIST'S IMPRESSION OF T-SPINE MRI ON 07/10/24: Degenerative change at T12-L1 with mild narrowing of the spinal canal. The remaining spinal canal and neural foramen are patent. RADIOLOGIST'S IMPRESSION OF L-SPINE MRI ON 06/26/24: 1. Vague area of abnormal signal and enhancement in the right L3 vertebral body. An atypical hemangioma, hypointense on T1 is a consideration. A solitary metastasis is unlikely. Obtain bone scan correlation as clinically indicated. 2. Small hemangioma in the anterior superior L1 vertebral body. 3. Degenerative changes and significant central canal and foraminal narrowing from L2-3 to L4-5 as described in the report. 08/11/2024 Other Case reviewed, treatment plan approved, and visit note edited by Dr. Montes De Oca. 10/29/2024 Other The service was provided by MARIMAR Medina, as part of the ongoing care plan established by Aneesh Montes De Oca MD, who was present in the office for direct supervision during the encounter. 12/24/2024 Other The service was provided by MARIMAR Medina, as part of the ongoing care plan established by Aneesh Montes De Oca MD, who was present in the office for direct supervision during the encounter. 02/18/2025 Other The service was provided by MARIMAR Medina, as part of the ongoing care plan established by Aneesh Montes De Oca MD, who was present in the office for direct supervision during the encounter. Patient was provided with a letter at today's visit informing patient that this clinic is closing due to Dr. Montes De Oca's long term; see scanned document. Terminal prescriptions were given to the patient along with tapering instructions. 09/03/2024 Other The service was provided by MARIMAR Medina, as part of the ongoing care plan established by Aneesh Montes De Oca MD, who was present in the office for direct supervision during the encounter. Plan Of Treatment No Information Insurance Providers Payer Name Payer Address Payer Phone Subscriber Number Group Number Insured Name Patient Relationship to Insured Coverage Start Date Coverage End Date [employer] Medicare Part B Claims Department [address] [address] [place] [address] [id number] Gita Stubbs Self - patient is the insured [employer] [address] [place] [phone] [id number] Gita Stubbs Self - patient is the insured Medical (General) History Medical History History ICD Code Chronic pain Low back pain Lumbar spondylosis, disc dis ease, spinal stenosis, spondylolisthesis and L4-5 interbody fusion with complete loss of disc height as noted upon review of 2021 CT report Lumbar radiculopathy per Dr. Horne T12-L1 spinal stenosis Neck pain Cervical disc disorder Acute sensory neuropathy Chronic left shoulder pain Pain of right upper extremity Degenerative joint disease of both lower legs Arthritis Sleep disorder to include sn oring and restless legs (and some hypersomnia - [place] score = 6) Surgical History Surgery Date(Month/Year) Left carpal tunnel release at [facility] [place], 1970[place] Knee replacement, left, performed in [facility] 2016 Knee replacement, right, performed in [place], [place] Bilateral L3-L4 laminotomies / facetectomies, performed at [facility] by Dr. Brooke, 03/16/14 Right carpal tunnel release at [facility] by Tejas Burkett, 2022 Hospitalization History Reason Date(Month/Year) Confusion and UTI, treated [facility], 05/13/24
--- NOTE | 2025-03-22 16:58 | XRR_ITS ---
PROCEDURE INFORMATION: Exam: XR Chest Exam date and time: 03/22/2025 4:58 PM Age: 85 years old Clinical indication: Weakness; AMS TECHNIQUE: Imaging protocol: Radiologic exam of the chest. Views: 1 view. COMPARISON: CR XR chest 1V portable [id number] 05/13/2024 11:59 AM FINDINGS: Lungs: Mild atelectasis or opacities at the left lung base. Pleural spaces: Unremarkable. No pleural effusion. No pneumothorax. Heart/Mediastinum: Unremarkable. No cardiomegaly. Bones/joints: Unremarkable. XR/XR chest 1V portable [id number] IMPRESSION: Mild atelectasis/opacities at the left lung base.
--- NOTE | 2025-03-22 16:58 | CTR_ITS ---
PROCEDURE INFORMATION: Exam: CT Head Without Contrast Exam date and time: 03/22/2025 5:14 PM Age: 85 years old Clinical indication: Malaise or fatigue; Additional info: Weakness TECHNIQUE: Imaging protocol: Computed tomography of the head without contrast. Radiation optimization: All CT scans at this facility use at least one of these dose optimization techniques: automated exposure control; mA and/or kV adjustment per patient size (includes targeted exams where dose is matched to clinical indication); or iterative reconstruction. COMPARISON: MR head wo con* [id number] 05/14/2024 11:06 AM RADIATION DOSE METRICS: Total DLP (mGy-cm): 1026.78 FINDINGS: Brain: Normal. No hemorrhage. Unremarkable white matter. No mass effect. Cerebral ventricles: No ventriculomegaly. Paranasal sinuses: Visualized sinuses are unremarkable. No fluid levels. Mastoid air cells: Visualized mastoid air cells are well aerated. Bones: Unremarkable. No acute fracture. Soft tissues: Small focal soft tissue swelling or protrusion along the left frontal scalp superiorly. CT/CT head wo con* [id number] IMPRESSION: 1. No acute intracranial findings. 2. Focal soft tissue swelling or lesion along the left frontal scalp. Please correlate clinically.
--- NOTE | 2025-03-22 17:01 | W.ED.WEAKNES ---
Documented by User: Vladimir Sullivan MD 03/22/25 17:46 HPI - Weakness General: Chief complaint: Weakness Stated complaint: weakness Time Seen by Provider: 03/22/25 16:55 Source: patient Mode of arrival: ambulatory Limitations: no limitations History of Present Illness: 85-year-old female states that she has been extremely weak. States this has been going on over the last weeks got much worse last 2 days she lives at home typically is able to get up walk take care of her self states today she has not been able to get up and walk or get out of bed. Denies any headache denies any chest pain denies any fevers or vomiting or diarrhea. 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 Chronic narcotic use Restless leg syndrome Chronic left shoulder pain Arthritis Back Pain Doing well on current meds DDD (degenerative disc disease), lumbar Degenerative lumbar spinal stenosis Acquired spondylolisthesis Cervical disc disorder with myelopathy, unspecified cervical region Chronic neck and back pain Pain of right upper extremity Degenerative joint disease of both lower legs Radiculopathy, site unspecified Surgical History History of total left knee replacement Status post carpal tunnel release bilateral in 1979, left 2022 History of total right knee replacement Family History Other CAD (coronary artery disease) Hypertension Social History Smoking and tobacco/nicotine status: never used tobacco/nicotine Second hand smoke exposure: No Alcohol intake: never Substance/Drug Use: never 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 Physical Exam Const: COMMON NORMALS: patient oriented x3 HENMT: COMMON NORMALS: normocephalic and atraumatic HEAD & SCALP: normocephalic and atraumatic Eye: COMMON NORMALS: Equal, round and reactive pupils present and EOMs intact bilaterally PUPIL: Yes Equal, round and reactive pupils present Neck/C-Spine: COMMON NORMALS: full ROM and supple Chest: COMMONS NORMALS: normal inspection of the chest and normal palpation of entire chest wall Resp: COMMON NORMALS: normal respiratory effort, No retractions, No use of accessory muscles and clear to auscultation bilaterally AUSCULTATION: clear to auscultation bilaterally Cardio: COMMON NORMALS: regular rate, regular rhythm and No murmurs present (Cardio) RATE: regular rate RHYTHM: regular rhythm GI: COMMON NORMALS: Normal to inspection, nondistended, normoactive bowel sounds present, Soft to palpation, non-tender and no masses PALPATION: Yes Soft to palpation Extremity: COMMON NORMALS: normal to inspection and full ROM Neuro: COMMON NORMALS: patient oriented x3, moves all extremities and no focal motor deficits Psych: COMMON NORMALS: mental status grossly normal, Normal thought process present and cooperative THOUGHT PROCESS: Normal thought process present Skin: COMMON NORMALS: no rashes or lesions noted and no wounds GENERAL SKIN EXAM: no rashes or lesions noted Course Vital Signs: Vital signs: Vital Signs Temperature 98.3 F 03/22/25 16:58 Pulse Rate 87 03/22/25 18:18 Respiratory Rate 16 03/22/25 18:06 Blood Pressure 104/80 03/22/25 18:18 Pulse Oximetry 98 03/22/25 18:18 Oxygen Delivery Me thod Room Air 03/22/25 18:06 MDM - Weakness Medical Decision Making Patient presents here with weakness she states she has pain all over she does not specify that she is having active chest pain at this time EKG does show ST elevation in the inferior leads change from previous EKG. I spoke to housekeeper on-call will activate Heating And Cooling Technician for STEMI Medical Records I reviewed the patient's medical records. Lab Data I reviewed the patient's lab results. 03/22/25 17:11 03/22/25 17:11 Radiology Impressions Chest X-Ray 03/22/25 16:58 IMPRESSION: Mild atelectasis/opacities at the left lung base. Head CT 03/22/25 16:58 IMPRESSION: 1. No acute intracranial findings. 2. Focal soft tissue swelling or lesion along the left frontal scalp. Please correlate clinically. Laboratory Results WBC 20.57 10^3/uL (3.29-11.43) H 03/22/25 17:11 RBC 3.71 10^6/uL (3.85-5.65) L 03/22/25 17:11 Hgb 11.50 g/dL (11.27-16.99) 03/22/25 17:11 Hct 37.9 % (36-47) 03/22/25 17:11 MCV 102.2 fl (85-98) H 03/22/25 17:11 MCH 31.0 pg (27-33) 03/22/25 17:11 MCHC 30.3 g/dL (30-55) 03/22/25 17:11 RDW 15.3 % (12.1-15.1) H 03/22/25 17:11 Plt Count 351 10^3/cmm (157-399) 03/22/25 17:11 MPV 10.7 fL (7.4-10.4) H 03/22/25 17:11 Neut % (Auto) 92.4 % 03/22/25 17:11 Lymph % (Auto) 3.3 % 03/22/25 17:11 Haskell % (Auto) 3.6 % 03/22/25 17:11 Eos % (Auto) 0.0 % 03/22/25 17:11 Baso % (Auto) 0.1 % 03/22/25 17:11 Neut # (Auto) 18.99 10^3/uL (1.8-7.7) H 03/22/25 17:11 Lymph # (Auto) 0.7 10^3/uL (0.8-4.8) L 03/22/25 17:11 Haskell # (Auto) 0.7 10^3/uL (0.2-0.9) 03/22/25 17:11 Eos # (Auto) 0.0 10^3/uL (0.0-0.8) 03/22/25 17:11 Baso # (Auto) 0.0 10^3/uL (0.0-0.1) 03/22/25 17:11 Nucleated RBC % (auto) 0 % 03/22/25 17:11 Nucleated RBCs # 0.0 /100WBC 03/22/25 17:11 PT 13.60 SECONDS (12.1-14.9) 03/22/25 17:11 INR 0.97 (0.8-1.2) 03/22/25 17:11 Specimen Type Arterial 03/22/25 17:46 Sample Site Radial, left 03/22/25 17:46 ABG pH 7.44 (7.35-7.45) 03/22/25 17:46 ABG pCO2 35.0 mmHg (35-45) 03/22/25 17:46 ABG pO2 77.7 mmHg (80.0-100.0) L 03/22/25 17:46 ABG PO2/FiO2 Ratio 370 03/22/25 17:46 ABG HCO3 23.6 mmol/L (22-26) 03/22/25 17:46 ABG Base Excess -0.3 mmol/L (-2.0-2.0) 03/22/25 17:46 Carlos Test Pos 03/22/25 17:46 Hematocrit 31.9 % (37-47) L 03/22/25 17:46 O2 Delivery Device Room air 03/22/25 17:46 FiO2 21.0 % 03/22/25 17:46 Geophysical Observer ID Cak 03/22/25 17:46 Sodium 140 mmol/L (136-145) 03/22/25 17:11 Potassium 4.2 mmol/L (3.5-5.1) 03/22/25 17:11 Chloride 105 mmol/L (98-107) 03/22/25 17:11 Carbon Dioxide 19 mmol/L (22-29) L 03/22/25 17:11 Anion Gap 20.2 (5-19) H 03/22/25 17:11 BUN 34 mg/dL (8-23) H 03/22/25 17:11 Creatinine 1.1 mg/dL (0.5-0.9) H 03/22/25 17:11 GFR Calculation Not Reportable 03/22/25 17:11 Glucose 245 mg/dL (65-115) H 03/22/25 17:11 POC Glucose 257 mg/dL (70-110) H 03/22/25 17:23 Calculated Osmolality 306 mOsm/kg (285-295) H 03/22/25 17:11 Calcium 10.4 mg/dL (8.5-10.5) 03/22/25 17:11 Magnesium 2.5 mg/dL (1.7-2.3) H 03/22/25 17:11 Total Bilirubin 0.9 mg/dL (0.15-1.2) 03/22/25 17:11 AST 61 U/L (0-32) H 03/22/25 17:11 ALT 50 U/L (0-33) H 03/22/25 17:11 Alkaline Phosphatase 160 U/L (35-105) H 03/22/25 17:11 Troponin T Baseline 74 ng/L (0-10) H 03/22/25 17:11 Total Protein 6.0 g/dL (6.6-8.7) L 03/22/25 17:11 Albumin 2.8 g/dL (3.5-5.2) L 03/22/25 17:11 Globulin 3.2 g/dL (1.3-4.6) 03/22/25 17:11 Lipase 103 U/L (13-60) H 03/22/25 17:11 TSH 1.46 uIU/mL (0.27-4.20) 03/22/25 17:11 No radiology studies performed this visit Discharge Plan Discharge Patient Disposition: Admitted As Inpatient Clinical Impression: ST elevation NM (STEMI) Condition: Stable Coding Level of Care Code ED Celery Wrapper for [facility] Fwd Related Data Home Medications ?Medication ?Instructions ?Recorded ?Confirmed ibuprofen 200 mg tablet (Motrin IB) 200 mg PO BID PRN Pain 10/28/19 11/19/24 Previous Rx's ?Medication ?Instructions ?Recorded acyclovir 5 % topical ointment See Rx Instructions .Route 07/14/24 .COMPLEX #15 grams ferrous sulfate 325 mg (65 mg 325 mg PO DAILY #90 tabs 10/30/24 iron) tablet hydrocodone 10 mg-acetaminophen 1 tab PO BID PRN pain 1 day #1 tab 01/19/25 325 mg tablet prednisone 10 mg tablet See Rx Instructions .Route 02/24/25 .COMPLEX #90 tabs wheeled walker, with brakes, seat #1 ea 02/24/25 sulfamethoxazole 800 1 tab PO BID infection 7 days #14 02/26/25 mg-trimethoprim 160 mg tablet tabs (Bactrim DS) pantoprazole 20 mg tablet,delayed See Rx Instructions .Route 03/03/25 release .COMPLEX #60 tabs clopidogrel 75 mg tablet 75 mg PO DAILY #90 tabs 03/04/25 Allergies Allergy/AdvReac Type Severity Reaction Status Date / Time No Known Allergies Allergy Verified 02/24/25 09:28 Documented by User: Colby Dover, 03/22/25 18:42 HPI - Weakness General: Chief complaint: Weakness Stated complaint: weakness Time Seen by Provider: 03/22/25 16:55 PFSH ED PFSH: Medical History 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 Chronic narcotic use Restless leg syndrome Chronic left shoulder pain Arthritis Back Pain Doing well on current meds DDD (degenerative disc disease), lumbar Degenerative lumbar spinal stenosis Acquired spondylolisthesis Cervical disc disorder with myelopathy, unspecified cervical region Chronic neck and back pain Pain of right upper extremity Degenerative joint disease of both lower legs Radiculopathy, site unspecified Surgical History History of total left knee replacement Status post carpal tunnel release bilateral in 1979, left 2022 History of total right knee replacement Family History Other CAD (coronary artery disease) Hypertension Social History Smoking and tobacco/nicotine status: never used tobacco/nicotine Second hand smoke exposure: No Alcohol intake: never Substance/Drug Use: never 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 I spoke to housekeeper on-call will activate Heating And Cooling Technician for STEMI Interventional cardiology has evaluated the patient in the ER. Spoke with family. Determined that due to significant EKG changes initially, although now they are improved, and ST segments are back to baseline, that angiography is warranted given her progressive decline. She is taken directly from the ER to the Heating And Cooling Technician by the Heating And Cooling Technician team. She is stable upon transfer. She is to be admitted following Lab Data 03/22/25 17:11 03/22/25 17:11 Radiology Impressions Chest X-Ray 03/22/25 16:58 IMPRESSION: Mild atelectasis/opacities at the left lung base. Head CT 03/22/25 16:58 IMPRESSION: 1. No acute intracranial findings. 2. Focal soft tissue swelling or lesion along the left frontal scalp. Please correlate clinically. Laboratory Results WBC 20.57 10^3/uL (3.29-11.43) H 03/22/25 17:11 RBC 3.71 10^6/uL (3.85-5.65) L 03/22/25 17:11 Hgb 11.50 g/dL (11.27-16.99) 03/22/25 17:11 Hct 37.9 % (36-47) 03/22/25 17:11 MCV 102.2 fl (85-98) H 03/22/25 17:11 MCH 31.0 pg (27-33) 03/22/25 17:11 MCHC 30.3 g/dL (30-55) 03/22/25 17:11 RDW 15.3 % (12.1-15.1) H 03/22/25 17:11 Plt Count 351 10^3/cmm (157-399) 03/22/25 17:11 MPV 10.7 fL (7.4-10.4) H 03/22/25 17:11 Neut % (Auto) 92.4 % 03/22/25 17:11 Lymph % (Auto) 3.3 % 03/22/25 17:11 Haskell % (Auto) 3.6 % 03/22/25 17:11 Eos % (Auto) 0.0 % 03/22/25 17:11 Baso % (Auto) 0.1 % 03/22/25 17:11 Neut # (Auto) 18.99 10^3/uL (1.8-7.7) H 03/22/25 17:11 Lymph # (Auto) 0.7 10^3/uL (0.8-4.8) L 03/22/25 17:11 Haskell # (Auto) 0.7 10^3/uL (0.2-0.9) 03/22/25 17:11 Eos # (Auto) 0.0 10^3/uL (0.0-0.8) 03/22/25 17:11 Baso # (Auto) 0.0 10^3/uL (0.0-0.1) 03/22/25 17:11 Nucleated RBC % (auto) 0 % 03/22/25 17:11 Nucleated RBCs # 0.0 /100WBC 03/22/25 17:11 PT 13.60 SECONDS (12.1-14.9) 03/22/25 17:11 INR 0.97 (0.8-1.2) 03/22/25 17:11 Specimen Type Arterial 03/22/25 17:46 Sample Site Radial, left 03/22/25 17:46 ABG pH 7.44 (7.35-7.45) 03/22/25 17:46 ABG pCO2 35.0 mmHg (35-45) 03/22/25 17:46 ABG pO2 77.7 mmHg (80.0-100.0) L 03/22/25 17:46 ABG PO2/FiO2 Ratio 370 03/22/25 17:46 ABG HCO3 23.6 mmol/L (22-26) 03/22/25 17:46 ABG Base Excess -0.3 mmol/L (-2.0-2.0) 03/22/25 17:46 Carlos Test Pos 03/22/25 17:46 Hematocrit 31.9 % (37-47) L 03/22/25 17:46 O2 Delivery Device Room air 03/22/25 17:46 FiO2 21.0 % 03/22/25 17:46 Geophysical Observer ID Cak 03/22/25 17:46 Sodium 140 mmol/L (136-145) 03/22/25 17:11 Potassium 4.2 mmol/L (3.5-5.1) 03/22/25 17:11 Chloride 105 mmol/L (98-107) 03/22/25 17:11 Carbon Dioxide 19 mmol/L (22-29) L 03/22/25 17:11 Anion Gap 20.2 (5-19) H 03/22/25 17:11 BUN 34 mg/dL (8-23) H 03/22/25 17:11 Creatinine 1.1 mg/dL (0.5-0.9) H 03/22/25 17:11 GFR Calculation Not Reportable 03/22/25 17:11 Glucose 245 mg/dL (65-115) H 03/22/25 17:11 POC Glucose 257 mg/dL (70-110) H 03/22/25 17:23 Calculated Osmolality 306 mOsm/kg (285-295) H 03/22/25 17:11 Calcium 10.4 mg/dL (8.5-10.5) 03/22/25 17:11 Magnesium 2.5 mg/dL (1.7-2.3) H 03/22/25 17:11 Total Bilirubin 0.9 mg/dL (0.15-1.2) 03/22/25 17:11 AST 61 U/L (0-32) H 03/22/25 17:11 ALT 50 U/L (0-33) H 03/22/25 17:11 Alkaline Phosphatase 160 U/L (35-105) H 03/22/25 17:11 Troponin T Baseline 74 ng/L (0-10) H 03/22/25 17:11 Total Protein 6.0 g/dL (6.6-8.7) L 03/22/25 17:11 Albumin 2.8 g/dL (3.5-5.2) L 03/22/25 17:11 Globulin 3.2 g/dL (1.3-4.6) 03/22/25 17:11 Lipase 103 U/L (13-60) H 03/22/25 17:11 TSH 1.46 uIU/mL (0.27-4.20) 03/22/25 17:11 Discharge Plan Discharge Patient Disposition: Admitted As Inpatient Clinical Impression: ST elevation NM (STEMI) Condition: Stable Coding Level of Care Code ED Celery Wrapper for Chg Fwd Related Data Home Medications ?Medication ?Instructions ?Recorded ?Confirmed ibuprofen 200 mg tablet (Motrin IB) 200 mg PO BID PRN Pain 10/28/19 11/19/24 Previous Rx's ?Medication ?Instructions ?Recorded acyclovir 5 % topical ointment See Rx Instructions .Route 07/14/24 .COMPLEX #15 grams ferrous sulfate 325 mg (65 mg 325 mg PO DAILY #90 tabs 10/30/24 iron) tablet hydrocodone 10 mg-acetaminophen 1 tab PO BID PRN pain 1 day #1 tab 01/19/25 325 mg tablet prednisone 10 mg tablet See Rx Instructions .Route 02/24/25 .COMPLEX #90 tabs wheeled walker, with brakes, seat #1 ea 02/24/25 sulfamethoxazole 800 1 tab PO BID infection 7 days #14 02/26/25 mg-trimethoprim 160 mg tablet tabs (Bactrim DS) pantoprazole 20 mg tablet,delayed See Rx Instructions .Route 03/03/25 release .COMPLEX #60 tabs clopidogrel 75 mg tablet 75 mg PO DAILY #90 tabs 03/04/25 Allergies Allergy/AdvReac Type Severity Reaction Status Date / Time No Known Allergies Allergy Verified 02/24/25 09:28
--- NOTE | 2025-03-22 17:23 | ECG_ITS ---
[facility] Test Date: 2025-03-22 Pat Name: Gita Stubbs Department: Room: Gender: Female Skip Operator: : 1940 Requested By: Vladimir Sullivan Order Number: [id number] Shruthi MD: Anatoliy Peña M.D. Measurements Intervals [place] Rate: 108 P: 54 TX: 137 QRS: -52 QRSD: 84 T: 40 QT: 324 QTc: 435 Interpretive Statements SINUS TACHYCARDIA LEFT AXIS DEVIATION [QRS AXIS < -30] LOW QRS VOLTAGE IN PRECORDIAL LEADS [QRS DEFLECTION < 1.0 mV IN CHEST LEADS] POSSIBLE ANTERIOR MYOCARDIAL INFARCTION , OF INDETERMINATE AGE [30 ms Q WAVE IN V3/V4, OR R < 0.2 mV IN V4] Compared to ECG 05/13/2024 20:07:49 Low QRS voltage now present Myocardial infarct finding now present Sinus rhythm no longer present Electronically Signed On 03-26-2025 09:11:20 CDT by Anatoliy Peña M.D. [email or web address]
[2025-03-22 17:24] LABS: Hematocrit 37.9 % (36-47); Hemoglobin 11.50 g/dL (11.27-16.99); Mean Corpuscular HGB Conc 30.3 g/dL (30-55); Mean Corpuscular Hemoglobin 31.0 pg (27-33); Mean Corpuscular Volume 102.2 fl (85-98); Nucleated Red Blood Cells % 0 %; Platelet Count 351 10^3/cmm (157-399); Red Blood Count 3.71 10^6/uL (3.85-5.65); White Blood Count 20.57 10^3/uL (3.29-11.43)
--- NOTE | 2025-03-22 17:28 | ECG_ITS ---
[facility] Test Date: 2025-03-22 Pat Name: Gita Stubbs Department: Room: Gender: Female Duster Tender: : 1940 Requested By: Vladimir Sullivan Order Number: [id number] Shruthi MD: Anatoliy Peña M.D. Measurements Intervals [place] Rate: 106 P: 64 CO: 143 QRS: -55 QRSD: 85 T: 54 QT: 315 QTc: 418 Interpretive Statements SINUS TACHYCARDIA LOW QRS VOLTAGE IN PRECORDIAL LEADS [QRS DEFLECTION < 1.0 mV IN CHEST LEADS] LEFT ANTERIOR FASCICULAR BLOCK [QRS AXIS <= -45, QR IN I, RS IN II] POSSIBLE ANTERIOR MYOCARDIAL INFARCTION , OF INDETERMINATE AGE [30 ms Q WAVE IN V3/V4, OR R < 0.2 mV IN V4] INTERPRETATION BASED ON A DEFAULT AGE OF 40 YEARS Compared to ECG 03/22/2025 17:23:58 Left anterior fascicular block now present Left-axis deviation no longer present Myocardial infarct finding still present Electronically Signed On 03-26-2025 09:11:02 CDT by Anatoliy Peña M.D. [email or web address] [id number]
[2025-03-22 17:30] LABS: INR 0.97 (0.8-1.2); Prothrombin Time 13.60 SECONDS (12.1-14.9)
--- NOTE | 2025-03-22 17:32 | PC.NURSE ---
STEMI ALERT CALLED AFTER EKG PRESENTED TO DR HUTCHISON.
[2025-03-22 17:54] LABS: Troponin(5th) Baseline 74 ng/L (0-10)
[2025-03-22] MEDS: heparin 5,000 unit/mL INJ 1 mL 4000 UNIT IVP (17:55)
[2025-03-22 17:57] LABS: ABG PCO2 35.0 mmHg (35-45); ABG PH Result 7.44 (7.35-7.45); Arterial Blood Gas Hematocrit 31.9 % (37-47); Blood Gas Allen Test Pos; Blood Gas Operator Identificat CAK; Blood Gas Sample Site Radial, left; Blood Gas Sample Type Arterial; HCO3 ABG 23.6 mmol/L (22-26); PO2 ABG 77.7 mmHg (80.0-100.0); PO2 FiO2 Ratio Arterial Blood 370
--- NOTE | 2025-03-22 18:00 | ECG_ITS ---
[facility] Date: 2025-03-22 Pat Name: Gita Stubbs Department: Room: Gender: Female Cell Tender: : 1940 Requested By: Vladimir Sullivan Order Number: [id number] Shruthi MD: Anatoliy Peña M.D. Measurements Intervals [place] Rate: 93 P: 64 ME: 157 QRS: -48 QRSD: 94 T: 48 QT: 338 QTc: 420 Interpretive Statements SINUS RHYTHM LOW QRS VOLTAGE IN PRECORDIAL LEADS [QRS DEFLECTION < 1.0 mV IN CHEST LEADS] LEFT ANTERIOR FASCICULAR BLOCK [QRS AXIS <= -45, QR IN I, RS IN II] POSSIBLE ANTERIOR MYOCARDIAL INFARCTION , OF INDETERMINATE AGE [30 ms Q WAVE IN V3/V4, OR R < 0.2 mV IN V4] Compared to ECG 03/22/2025 17:28:16 Sinus tachycardia no longer present Myocardial infarct finding still present Electronically Signed On 03-26-2025 09:36:35 CDT by Anatoliy Peña M.D. [email or web address] [id number]
[2025-03-22 18:02] LABS: Albumin Level 2.8 g/dL (3.5-5.2); Alkaline Phosphatase 160 U/L (35-105); Blood Urea Nitrogen 34 mg/dL (8-23); Calcium 10.4 mg/dL (8.5-10.5); Carbon Dioxide 19 mmol/L (22-29); Chloride 105 mmol/L (98-107); Globulin 3.2 g/dL (1.3-4.6); Glucose 245 mg/dL (65-115); Lipase 103 U/L (13-60); Magnesium 2.5 mg/dL (1.7-2.3); Osmolality Calculated 306 mOsm/kg (285-295); Sodium 140 mmol/L (136-145); Thyroid Stimulating Hormone 1.46 uIU/mL (0.27-4.20); Total Protein 6.0 g/dL (6.6-8.7)
[2025-03-22 18:04] LABS: Anion Gap 20.2 (5-19); Creatinine Clr Calc Pharmacy 32.7945; Potassium 4.2 mmol/L (3.5-5.1)
[2025-03-22 18:05] LABS: Alanine Aminotransferase 50 U/L (0-33); Aspartate Amino Transferase 61 U/L (0-32)
--- NOTE | 2025-03-22 18:17 | P.HP_ITS ---
Providers/Chief Complaint 2 Admitting Physician: Anatoliy Peña MD/ Cardiology Primary Care Provider: Sudheer Canchoal DO Chief Complaint: weakness History of Present Illness Gita Stubbs is a 85 year old female with no known prior cardiac history who has been brought to the hospital with atypical symptoms of feeling very weak for the last several days and the weakness worsening today. Denies chest pain at this time. Initial EKG had significant ST elevations in inferior leads. Patient has dementia. Son wants aggressive therapy at this time. Review of Systems 2 Const: Reports: fatigue and malaise; Denies: fever(s), chills, body aches or change in appetite Eyes: Denies: blurry vision or eye discomfort ENMT: Denies: throat pain or dental pain Card: Denies: chest pain Resp: Denies: dyspnea GI: Denies: abdominal pain, nausea, vomiting or diarrhea Musc: Denies: neck pain or back pain Skin/Breast: Denies: rash Neuro: Denies: headache(s) Medications/Allergies Home Medications ?Medication ?Instructions ?Recorded ?Confirmed ?Last Taken ?Type ibuprofen 200 mg tablet (Motrin IB) 200 mg PO BID PRN Pain 10/28/19 11/19/24 Unknown History acyclovir 5 % topical ointment See Rx Instructions .Ro estrellita 07/14/24 11/19/24 Unknown Rx .COMPLEX #15 grams ferrous sulfate 325 mg (65 mg 325 mg PO DAILY #90 tabs 10/30/24 11/27/24 Unknown Rx iron) tablet hydrocodone 10 mg-acetaminophen 1 tab PO BID PRN pain 1 day #1 tab 01/19/25 02/24/25 Unknown Rx 325 mg tablet prednisone 10 mg tablet See Rx Instructions .Route 0 02/24/25 02/24/25 Unknown Rx .COMPLEX #90 tabs wheeled walker, with brakes, seat #1 ea 02/24/2502/24 Unknown Rx sulfamethoxazole 800 1 tab PO BID infection 7 day s #14 02/26/25 Unknown Rx mg-trimethoprim 160 mg tablet tabs (Bactrim DS) pantoprazole 20 mg tablet,delayed See Rx Instructions .Route 03/03/25 Unknown Rx release .COMPLEX #60 tabs clopidogrel 75 mg tablet 75 mg PO DAILY #90 tabs 02/22 10/18 Unknown Rx Allergies Allergy/AdvReac Type Severity Reaction Status Date / Time No Known Allergies Allergy Verified 02/24/25 09:28 PFSH Acute 2 PFSH: Medical History 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 Chronic narcotic use Restless leg syndrome Chronic left shoulder pain Arthritis Back Pain Doing well on current meds DDD (degenerative disc disease), lumbar Degenerative lumbar spinal stenosis Acquired spondylolisthesis Cervical disc disorder with myelopathy, unspecified cervical region Chronic neck and back pain Pain of right upper extremity Degenerative joint disease of both lower legs Radiculopathy, site unspecified Surgical History History of total left knee replacement Status post carpal tunnel release bilateral in 1979, left 2022 History of total right knee replacement Family History Other CAD (coronary artery disease) Hypertension Social History Smoking and tobacco/nicotine status: never used tobacco/nicotine Second hand smoke exposure: No Alcohol intake: never Substance/Drug Use: never 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 [] HEENT: No cyanosis. No icterus. No pallor. [] HEART: Regular S1 and S2 LUNGS: Clear to auscultate bilaterally. [] CENTRAL NERVOUS SYSTEM: Grossly nonfocal. [] EXTREMITIES: Lower extremities with 1+ edema bilaterally Data 03/22/25 17:11 03/22/25 17:11 A&P Assessment and plan (1) ST elevation MS (STEMI): Plan Patient's presentation is atypical. However first EKG did have ST elevations in inferior leads. Initial troponin is 74. Creatinine is 1.1. Will proceed with coronary angiogram as patient's family wants aggressive therapy. At this time they have made her full code. Patient on Plavix. Will begin aspirin and heparin after the angiogram. Will order echocardiogram. Will also consult medicine team. PDMP PDMP Reviewed: Not Reviewed Attestations 2 Medical Necessity Statement*: Care expected to cross 2 midnights. Patient has presented with atypical presentation however initial EKG had significant ST elevation. First troponin is 74 Coding Level of Care Code Acute Code for g Fwd Diagnoses ST elevation MS (STEMI) I21.3
--- NOTE | 2025-03-22 18:50 | P.PCN_ITS ---
Procedure Note: Date of procedure: 03/22/25 Pre-procedure diagnosis: ST elevation Post-procedure diagnosis: other (Non-obstructive coronary artery disease) Procedure: Non-obstructive coronary artery disease We will consult medicine team for further management. Possible sepsis. Performing Provider: Anatoliy Peña Complications: None Condition: stable Disposition: floor Coding Level of Care Code Acute Code for [facility] F[facility]
--- OUTSIDE RECORDS SUMMARY | 2025-03-22 19:19 | XMS_ITS | Clinical Summary ---
Author Organization [facility] Address [address] [place] [address] Care Team Providers Care Roll Scale Man Name Role Phone Unavailable Primary Care Provider [...] 2024 Insurance MEDICARE PART A AND B [facility]
[2025-03-22] MEDS: cefTRIAXone 1,000 mg SDV 1000 MG IVP (19:37)
[2025-03-22] MEDS: AZITHROMYCIN ADD-Vantage 500 MG in 0.9% NaCl ADD-Vantage 250 ML 250 MG IV (19:46)
--- NOTE | 2025-03-22 20:10 | P.CONIM_ITS ---
Providers/Reason For Consult 2 Consulting Physician/Specialty*: Kenan Escobedo MD hospitalist Reason for Consult*: Elevated white count and weakness Requesting Physician: Anatoliy Peña MD Attending Physician: Anatoliy Peña M.D Primary Care Provider: Sudheer Canchola DO History of Present Illness History of Present Illness Gita Stubbs is a 85 year old female who lives with her son Demarcus sethi. He is her primary sees her for chronic pain hips and legs. She is on prednisone chronically for polymyalgia rheumatica and took it today. She was most recently seen on 02/24/2025 and requested a wheeled walker and home health. Today the patient presents for extreme weakness and unable to walk for the last 3 days son states he is having to lift her because she cannot get up to walk. She denies chest pain fevers cough she reports that food does not taste good and so family states that is why she has not been eating much. Demarcus has been giving her lemonade and protein drinks to maintain her weight. She weighed almost 200 pounds in February 2024. Her max weight in our chart is 88 kg 2020. Recently she has had an elevation of MCV to 102 with previous baseline 96. Son tells me she had a blood transfusion and I think that would have been for the hematocrit of 22.3 on October 28, 2024 when blood was typed and B positive. She has never had cancer. Today the patient had ST segment elevation inferior leads consistent with myocardial infarction and it dynamically corrected but patient was a poor historian regarding vague generalized pain and weakness so went to [employer] which was negative for obstructive coronary disease. She is referred to me for evaluation of generalized weakness leukocytosis elevated LFTs and lipase of 100. Patient tells me she is not a drinker and and family states she has not had cholecystectomy or appendectomy. Demarcus confirms that she wants full code no prolong life support. Review of Systems 2 Narrative: General Positive for 42 pounds of weight loss. She has had chronic polymyalgia rheumatica on steroids with recent worsened weakness leg pain. P.o. intake has been poor and patient reports that she cannot taste her food. Family states that she has not been eating or drinking well the last 3 days and that sometimes she has confusion. Cardiovascular atypical chest pain Respiratory no shortness of breath cough or wheezing GI no nausea vomiting diarrhea no dysuria hematuria Neuro no seizures or stroke symptoms Hematologic she had recent blood transfusion in October. Demarcus states she has not had a colonoscopy. She has had significant weight loss. Medications/Allergies Home Medications ?Medication ?Instructions ?Recorded ?Confirmed ?Last Taken ?Type ibuprofen 200 mg tablet (Motrin IB) 200 mg PO BID PRN Pain 10/28/19 03/22/25 Unknown History acyclovir 5 % topical ointment See Rx Instructions .Ro [place] 07/14/24 03/22/25 Unknown Rx .COMPLEX #15 grams ferrous sulfate 325 mg (65 mg 325 mg PO DAILY #90 tabs 10/30/24 03/22/25 Unknown Rx iron) tablet hydrocodone 10 mg-acetaminophen 1 tab PO BID PRN pain 1 day #1 tab 01/19/25 03/22/25 Unknown Rx 325 mg tablet prednisone 10 mg tablet See Rx Instructions .Route 0 02/24/25 03/22/25 Unknown Rx .COMPLEX #90 tabs wheeled walker, with brakes, seat #1 ea 02/24/2503/22 Unknown Rx sulfamethoxazole 800 1 tab PO BID infection 7 day s #14 02/26/25 03/22/25 Unknown Rx mg-trimethoprim 160 mg tablet tabs (Bactrim DS) pantoprazole 20 mg tablet,delayed See Rx Instructions .Route 03/03/25 03/22/25 Unknown Rx release .COMPLEX #60 tabs clopidogrel 75 mg tablet 75 mg PO DAILY #90 tabs 02/2203/22/25 Unknown Rx Allergies Allergy/AdvReac Type Severity Reaction Status Date / Time No Known Allergies Allergy Verified 02/24/25 09:28 Current Medications Generic Name Dose Route Start Last Admin Trade Name Agustina PRN Reason Stop Dose Admin Sodium Chloride 1,000 mls @ 75 mls/hr 03/22/25 19:15 03/22/25 19:37 Sodium Chloride 0.9% IV 75 mls/hr .[id number] KARLENE Administration PFSH Acute 2 PFSH: Medical History 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 Chronic narcotic use Restless leg syndrome Chronic left shoulder pain Arthritis Back Pain Doing well on current meds DDD (degenerative disc disease), lumbar Degenerative lumbar spinal stenosis Acquired spondylolisthesis Cervical disc disorder with myelopathy, unspecified cervical region Chronic neck and back pain Pain of right upper extremity Degenerative joint disease of both lower legs Radiculopathy, site unspecified Surgical History History of total left knee replacement Status post carpal tunnel release bilateral in 1979, left 2022 History of total right knee replacement Family History Other CAD (coronary artery disease) Hypertension Social History Smoking and tobacco/nicotine status: never used tobacco/nicotine Second hand smoke exposure: No Alcohol intake: never Substance/Drug Use: never 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 Vitals/I&O/Wt Last Vital Signs Temp 97.6 F 03/22/25 20:00 Pulse 88 03/22/25 20:00 Resp 14 03/22/25 20:00 BP 118/62 03/22/25 20:00 Pulse Ox 98 03/22/25 18:18 O2 Del Method Room Air 03/22/25 18:06 03/22/25 03/22/25 03/22/25 06:59 14:59 22:59 Intake Total 1000 / 1000 Balance 1000 / 1000 Weight last 48 hrs Weight 65.771 kg Physical Exam 2 Narrative: General well-developed well-nourished female in no acute cardiopulmonary distress she is somnolent but arouses Neuro she is alert and oriented to person place month and date but not exact day CV regular rate and rhythm no loud murmur Lungs clear to auscultation bilaterally on anterolateral exam Abdomen positive bowel tones soft nontender no rebound Calves trace edema she has a ecchymotic lesion on her left pretibial. This is tender to palpation looks like a blood blister Skin warm and dry Data 03/22/25 17:11 03/22/25 17:11 Micro: Microbiology 03/22/25 19:53 Blood Culture - Preliminary Blood SPECIMEN COLLECTED A&P Assessment and plan (1) Weakness: Unclear etiology but she has polymyalgia rheumatica. She is also had weight loss and macrocytic anemia not well explained. A myeloproliferative disorder or blood loss anemia or both are being considered. She has not had a colonoscopy despite 42 pounds weight loss. Chest x-ray does not show an obvious mass. Thyroid studies and iron studies will be ordered. Patient is on chronic prednisone so cortisol not likely to be beneficial to test she has not missed doses TSH normal 1.46. Sed rate is 52 (2) Macrocytic anemia: See above (3) Polymyalgia rheumatica: Sed rate has been ordered (4) Elevated white blood cell count: Blood cultures x 2 have been done. She received antibiotics in the emergency department. Patient's had white count of 1917 and 20 since January 19 of this year. She has not had fevers. CHEM panel and ultrasound of the gallbladder in the morning to look for biliary disease or chronically disease gallbladder Continue Rocephin for possible biliary infection. Lipase also to be repeated in the morning PDMP PDMP Reviewed: Not Reviewed Consult Attestations 2 Medical Necessity Statement: Patient will be in the hospital additional time to clarify her weakness elevated white count and awaiting her blood cultures and urine test. Anticipated greater than 2 midnights in hospital Coding Level of Care Code 17104 Diagnoses Weakness R53.1 Macrocytic anemia D53.9 Polymyalgia rheumatica M35.3 Elevated white blood cell count D72.829 Time Spent (min) 70
[2025-03-22 20:37] LABS: Troponin 5 2HR 75.12 ng/L (0-10); Troponin 5 2HR Delta 1.12 ABS# (0-10)
--- NOTE | 2025-03-22 23:19 | ECG_ITS ---
[facility] Date: 2025-03[facility]22 Pat Name: Gita Stubbs Department: Room: 108 Gender: Female Computer Lab Aide: : 1940 Requested By: Vladimir Sullivan Order Number: [id number] Shruthi MD: Anatoliy Peña M.D. Measurements Intervals [place] Rate: 81 P: 64 OK: 155 QRS: -43 QRSD: 89 T: 31 QT: 357 QTc: 415 Interpretive Statements SINUS RHYTHM LEFT AXIS DEVIATION [QRS AXIS < -30] LOW QRS VOLTAGE IN PRECORDIAL LEADS [QRS DEFLECTION < 1.0 mV IN CHEST LEADS] POSSIBLE ANTERIOR MYOCARDIAL INFARCTION , OF INDETERMINATE AGE [30 ms Q WAVE IN V3/V4, OR R < 0.2 mV IN V4] Compared to ECG 03/22/2025 18:00:21 Left-axis deviation now present Left anterior fascicular block no longer present Myocardial infarct finding still present Electronically Signed On 03-26-2025 09:35:50 CDT by Anatoliy Peña M.D. [email or web address]
[2025-03-22 23:40] LABS: Troponin 5 6HR 57.85 ng/L (0-10)
[2025-03-22 23:46] LABS: Troponin 5 6HR Delta -16.15 ng/L (0-12)
[2025-03-23] VITALS (8 sets, daily range): BP systolic 100–120; BP diastolic 49–59; PULSE 85–99; RESP 14–22; TEMP 36.4–37.1; O2SAT 90–98
[2025-03-23 00:22] LABS: Glucose Urine UA Negative (Normal); Nitrate Urine Negative (Negative)
[2025-03-23 00:41] LABS: Specific Gravity, Urine 1.072 (1.005-1.030); UA Slide Review UA Slide Review Perf
[2025-03-23 04:31] LABS: Hematocrit 30.3 % (36-47); Hemoglobin 9.20 g/dL (11.27-16.99); Mean Corpuscular HGB Conc 30.4 g/dL (30-55); Mean Corpuscular Hemoglobin 31.5 pg (27-33); Mean Corpuscular Volume 103.8 fl (85-98); Platelet Count 280 10^3/cmm (157-399); Red Blood Count 2.92 10^6/uL (3.85-5.65); White Blood Count 18.19 10^3/uL (3.29-11.43)
[2025-03-23 04:47] LABS: Total Cells Counted 100 (0-100)
[2025-03-23 04:48] LABS: Absolute Segmented Neutrophil 14.2 10/cmm (1.6-7.1); Atypical Lymphs 0.0 % (0-5); Band Neutrophils Absolute 0.7 10^3/cmm (0.0-1.2)
[2025-03-23 04:50] LABS: Alanine Aminotransferase 40 U/L (0-33); Albumin Level 2.2 g/dL (3.5-5.2); Alkaline Phosphatase 129 U/L (35-105); Blood Urea Nitrogen 24 mg/dL (8-23); Calcium 9.2 mg/dL (8.5-10.5); Carbon Dioxide 24 mmol/L (22-29); Chloride 107 mmol/L (98-107); Creatinine Clr Calc Pharmacy 45.0925; Globulin 2.6 g/dL (1.3-4.6); Glucose 74 mg/dL (65-115); Lipase 67 U/L (13-60); Osmolality Calculated 293 mOsm/kg (285-295); Sodium 140 mmol/L (136-145); Total Protein 4.8 g/dL (6.6-8.7)
[2025-03-23 04:53] LABS: Anion Gap 13.1 (5-19); Aspartate Amino Transferase 37 U/L (0-32); Potassium 4.1 mmol/L (3.5-5.1)
--- NOTE | 2025-03-23 08:54 | P.PN_ITS ---
Subjective 2 Subjective: No events overnight. She remains confused this morning. Right femoral cath site without hematoma. Vitals/I&O/Wt Last Vital Signs Temp 98.0 F 03/23/25 07:22 Pulse 94 03/23/25 07:22 Resp 14 03/23/25 07:22 BP 107/52 03/23/25 07:22 Pulse Ox 97 03/23/25 07:22 O2 Del Method Room Air 03/23/25 07:22 03/22/25 03/23/25 03/23/25 22:59 06:59 14:59 Intake Total 2250 / 3250 1000 / 3250 Output Total 400 / 400 Balance 2250 / 2850 600 / 2850 Weight last 48 hrs Weight 145 lb 4.8 oz Weight 145 lb Physical Exam 2 Chest: COMMONS NORMALS: normal inspection of the chest Resp: COMMON NORMALS: normal respiratory effort and clear to auscultation bilaterally AUSCULTATION: clear to auscultation bilaterally Cardio: COMMON NORMALS: regular rate, regular rhythm, S1 normal heart sound present, S2 normal heart sound present, No gallops present (Cardio), No murmurs present (Cardio), No rub (Cardio) and Peripheral pulses 2+ throughout RATE: r egular rate RHYTHM: regular rhythm HEART SOUNDS: S1 normal heart sound present and S2 normal heart sound present PERIPHERAL PULSES: Peripheral pulses 2+ throughout Extremity: GENERAL: No edema Urinary Catheter Management: Rollins: Cath Placed During This Visit: yes Reason for Continuing Indwelling Catheter: Other Urinary Catheter Date of Insertion: 03/22/25 Urinary Catheter Time of Insertion: 23:00 Data 03/23/25 03:59 03/23/25 03:59 Micro: Microbiology 03/22/25 20:25 Blood Culture - Preliminary Blood SPECIMEN COLLECTED 03/22/25 19:53 Blood Culture - Preliminary Blood SPECIMEN COLLECTED A&P Assessment and plan (1) ST elevation MA (STEMI): Plan Non obstructive coronary artery disease. Medical management advised. Will order echocardiogram today. Will request hospitalist team to take over as primary team, as no further coronary interventions are needed at this time. PDMP PDMP Reviewed: Not Reviewed Attestations 2 Medical Necessity Statement*: per hospitalist Coding Level of Care Code Acute Code for [facility] Diagnoses ST elevation MA (STEMI) I21.3
--- NOTE | 2025-03-23 09:45 | USCV_ITS ---
Gita Stubbs Age: 85 Gender: F : 1940 Exam Date: 03/23/2025 10:06 Ordering Phys: Yadi Martin Technologist: TIMMY Exam Location: [facility] [place] Indication: STEMI BP: 107 / 50 HR: 86 Rhythm: Sinus Technical Quality: Adequate MEASUREMENTS (Male / Female) Normal Values 2D ECHO LV Diastolic Diameter PLAX 3.8 cm 4.2 - 5.9 / 3.9 - 5.3 cm IVS Diastolic Thickness 1.2 cm 0.6 - 1.0 / 0.6 - 0.9 cm IVS Systolic Thickness 1.1 cm LVPW Diastolic Thickness 1.1 cm 0.6 - 1.0 / 0.6 - 0.9 cm LVPW Systolic Thickness 2.1 cm LVOT Diameter 2.0 cm LV Ejection Fraction 2D Teich 68.9 % LV Ejection Fraction MOD 4C 65.9 % LV Ejection Fraction MOD 2C 65.3 % LV Ejection Fraction 2C AL 68.5 % LA Diameter 3.0 cm RA Systolic Volume 4C AL 27.2 ml RA Systolic Volume 4C MOD 26.5 ml LA Sys Volume AL 40.1 cm cubed LA Sys Volume Index AL 23.7 cm cubed/m squared Aorta at Sinotubular Diameter 2.3 cm IVC Diameter 2.3 cm M-MODE LA Ao Ratio MM 1.5 AV Cusp Separation MM 1.3 cm DOPPLER AV Peak Velocity 126.0 cm/s LVOT Peak Velocity 84.0 cm/s AV Area Cont Eq vti 2.7 cm squared AV Area Cont Eq pk 2.1 cm squared MV Peak Velocity 156.0 cm/s MV Area PHT 6.5 cm squared Mitral E to A Ratio 0.5 TR Peak Velocity 75.0 cm/s TR Peak Gradient 2.3 mmHg TV Peak E Velocity 69.0 cm/s PV Peak Velocity 85.0 cm/s FINDINGS Left Ventricle Left ventricle is normal size. LV systolic function is normal with EF of 60-65%. No regional wall abnormalities are seen. Grade 1 diastolic dysfunction. Right Ventricle Normal in size and function Right Atrium Normal in size Left Atrium Normal in size Mitral Valve Moderate mitral annular calcification. Mild mitral regurgitation. Aortic Valve Grossly normal. No significant stenosis or regurgitation. Tricuspid Valve Insufficient TR jet to calculate RVSP Pulmonic Valve Not well visualized Pericardium Normal Aorta Normal in size IVC Not well visualized CONCLUSIONS LV systolic function is normal with EF of 60-65% Grade 1 diastolic dysfunction Mild mitral regurgitation Anatoliy Peña MD (Electronically Signed) Final Date: 24 March 2025 10:19 S
[2025-03-23 12:05] LABS: Procalcitonin 0.40 ng/mL (0-0.5)
--- NOTE | 2025-03-23 15:00 | CTR_ITS ---
PROCEDURE INFORMATION: Exam: CT Chest Without Contrast; Diagnostic Exam date and time: 03/23/2025 5:11 PM Age: 85 years old Clinical indication: Other: Weakness; Additional info: AMS, weakness, TECHNIQUE: Imaging protocol: Diagnostic computed tomography of the chest without contrast. Radiation optimization: All CT scans at this facility use at least one of these dose optimization techniques: automated exposure control; mA and/or kV adjustment per patient size (includes targeted exams where dose is matched to clinical indication); or iterative reconstruction. COMPARISON: CR (CHEST, ) 03/22/2025 4:58 PM RADIATION DOSE METRICS: Total DLP (mGy-cm): 815.6 FINDINGS: Lungs: Dependent atelectasis in bilateral lungs, most pronounced in the lower lobes. No focal consolidation. Pleural spaces: Focal pleural thickening/nodularity measuring up to 1.7 cm adjacent to the right lateral 6th rib. Heart: Mitral annular calcifications. Decreased attenuation of the cardiac blood pool relative to the myocardium. Coronary arteries: Moderate coronary artery calcifications. Lymph nodes: Unremarkable. No enlarged lymph nodes. Vasculature: The thoracic aorta is nonaneurysmal with [id number] atherosclerotic calcifications. Diaphragm: Small sliding-type hiatal hernia. Bones/joints: Degenerative changes of the spine. Multilevel anterior osteophytes. Peritoneal asymmetric ill-defined soft tissue density in the abdomen aspect of the right breast. Soft tissues: Unremarkable. PROCEDURE INFORMATION: Exam: CT Abdomen And Pelvis Without Contrast Exam date and time: 03/23/2025 5:11 PM Age: 85 years old Clinical indication: Other: Weakness; Additional info: AMS, weakness, TECHNIQUE: Imaging protocol: Computed tomography of the abdomen and pelvis without contrast. Radiation optimization: All CT scans at this facility use at least one of these dose optimization techniques: automated exposure control; mA and/or kV adjustment per patient size (includes targeted exams where dose is matched to clinical indication); or iterative reconstruction. COMPARISON: CT abdomen w con* [id number] 02/11/2021 12:26 PM RADIATION DOSE METRICS: Total DLP (mGy-cm): 815.6 FINDINGS: Limitations: Suboptimal image quality due to streak artifact in the upper extremities. Liver: Redemonstrated hepatic cysts. Gallbladder and biliary ducts: Common bile duct appears mildly dilated, measuring up to 10 mm in caliber. Peritoneal fatty atrophy of the pancreas. No ductal dilatation. Pancreas: See Gallbladder and biliary ducts finding. Spleen: Normal. No splenomegaly. Adrenal glands: Normal. No mass. Kidneys and ureters: 2.8 cm left renal cortical cysts, stable. Trace excreted contrast in the renal collecting systems. Stomach and bowel: Ill-defined fluid collection with small gas locules in the left hemipelvis adjacent to the sigmoid colon measuring about 3.3 x 4.6 x 4.0 cm. Peritoneal sigmoid diverticulosis. Areas of mild sigmoid wall thickening are seen. No bowel obstruction. Appendix: No evidence of appendicitis. Intraperitoneal space: Trace free pelvic fluid. Vasculature: Moderate atherosclerotic aortoiliac calcifications. No abdominal aortic aneurysm. Lymph nodes: Unremarkable. No enlarged lymph nodes. Urinary bladder: Rollins catheter within the bladder. Intraluminal air is likely from instrumentation. Reproductive: Status post hysterectomy. Bones/joints: Unremarkable. No acute fracture. Soft tissues: Unremarkable. CT/[place] [id number] IMPRESSION: 1. No acute findings in the chest. 2. Focal pleural thickening/nodularity along the right lateral lung is nonspecific and could be atelectatic in nature. Underlying neoplasm considered less likely but not entirely excluded. Consider follow-up CT chest in 3 months versus nonemergent PET-CT for further evaluation. 3. Asymmetric soft tissue in the outer aspect of the right breast. Recommend correlation with dedicated breast imaging, including diagnostic mammogram to exclude neoplasm. Imaging features of anemia. IMPRESSION: 1. Findings suspicious for acute sigmoid diverticulitis with a possible focal contained perforation, including a mildly complex gas and fluid collection along the course of the sigmoid colon. 2. Additional ancillary findings as above are overall similar to prior.
--- NOTE | 2025-03-23 15:00 | USCV_ITS ---
Evelyne Gita Age: 85 Gender: F : 1940 Exam Date: 03/23/2025 18:28 Ordering Phys: Newton Ordoñez MD Technologist: RACHID [place] [facility] [place]: pain PROCEDURES: Venous duplex imaging was performed in bilateral lower extremities. The following venous structures were evaluated: common femoral vein, profunda vein, proximal portion of the greater saphenous vein, superficial femoral vein, and the popliteal vein. In addition, the posterior tibial and peroneal veins were evaluated. FINDINGS: Normal 2-D Doppler and augmentation and compressibility throughout the lower extremity venous structures. Additional imaging through the proximal calf veins also reveals no thrombus. Limited evaluation of the greater saphenous vein is patent with no thrombus. CONCLUSIONS No DVT bilateral lower extremities. Dr. Cyndie Merida DO (Electronically Signed) Final Date: 24 March 2025 13:26 S
[2025-03-23 15:49] LABS: Ferritin 757 ng/mL (15-150); Iron 16 ug/dL (37-145); Thyroid Stimulating Hormone 1.02 uIU/mL (0.27-4.20)
[2025-03-23] MEDS: VANCOMYCIN ADD-Vantage 1,000 MG in 0.9% NaCl ADD-Vantage 250 ML 250 MG IV (16:49)
[2025-03-23 16:57] LABS: Total Iron Binding Capacity 136 mcg/dl; Unsaturated Iron Binding 120 ug/dL (112-347); Vitamin B12 > 2000 pg/mL (232-1245)
--- NOTE | 2025-03-23 16:59 | P.PN_ITS ---
Subjective 2 Subjective: Patient was seen this morning, she is currently alert to person, not to place, not to time, she is diffusely encephalopathic she awakens and answers basic yes or no questions but falls back asleep, she moves bilateral upper and lower extremities, spontaneously, pupils equal round reactive to light, she is able to sit up for me, she denies any complaints, no headache, no nausea, no vomiting, no abdominal pain, she can follow some commands, I cannot discern any focal weakness, no slurring of words, no facial droop, I was not able to get much of history from her - Patient's son is at bedside - Patient's son tells me that over the l ast year she has had a generalized decline - More rapid in the last few days, decre ased appetite, decreased mobility - She had episodes of waxing and waning mentation - No known history of strokes, - No known history of travel - She lives with her son, - He tells me that the last 3 days had a rapid decline, she has been unable to walk, he has had to lift her, - Initial on hospital mission there was concern for STEMI, was taken to cardiac catheterization lab found to have nonobstructive CAD, Vitals/I&O/Wt Last Vital Signs Temp 97.6 F 03/23/25 15:15 Pulse 96 03/23/25 15:15 Resp 18 03/23/25 15:15 BP 103/49 03/23/25 15:15 Pulse Ox 96 03/23/25 15:15 O2 Del Method Room Air 03/23/25 11:35 03/23/25 03/23/25 03/23/25 06:59 14:59 22:59 Intake Total 1000 / 3250 240 / 240 Output Total 400 / 400 Balance 600 / 2850 240 / 240 Weight last 48 hrs Weight 65.907 kg Weight 65.771 kg Physical Exam 2 Const: COMMON NORMALS: no acute distress Eye: COMMON NORMALS: Equal, round and reactive pupils present PUPIL: Yes Equal, round and reactive pupils present Resp: COMMON NORMALS: normal respiratory effort, No retractions, No use of accessory muscles and clear to auscultation bilaterally AUSCULTATION: clear to auscultation bilaterally Cardio: COMMON NORMALS: regular rate, regular rhythm, S1 normal heart sound present and S2 normal heart sound present RATE: regular rate RHYTHM: r egular rhythm HEART SOUNDS: S1 normal heart sound present and S2 normal heart sound present GI: COMMON NORMALS: Normal to inspection, nondistended, normoactive bowel sounds present and non-tender Extremity: COMMON NORMALS: no pedal edema Neuro: OTHER: Global encephalopathy - No neck stiffness, Kernig's negative, Brudzinski sign negative - Does localize pain, does withdraw from pain - No facial droop, slurring of her words , bilateral moving upper lower extremities Urinary Catheter Management: Rollins: Cath Placed During This Visit: yes Reason for Continuing Indwelling Catheter: Other Urinary Catheter Date of Insertion: 03/22/25 Urinary Catheter Time of Insertion: 23:00 Data 03/23/25 03:59 03/23/25 03:59 Micro: Microbiology 03/22/25 20:25 Blood Culture - Preliminary Blood SPECIMEN COLLECTED 03/22/25 19:53 Blood Culture - Preliminary Blood SPECIMEN COLLECTED A&P Assessment and plan (1) Weakness: (2) Macrocytic anemia: (3) Polymyalgia rheumatica: (4) Elevated white blood cell count: (5) Altered mental status: Plan Altered mental status, weakness, leukocytosis - Neurochecks - NIH stroke scale - Aspiration precautions - Seizure precautions - CRP, Pro-Kade, sed rate - Blood cultures -Urinalysis - Abdominal ultrasound -[place] CT chest abdomen pelvis - HSV DNA, antigen - Vancomycin - Rocephin - Cannot do lumbar puncture as patient is on Plavix, and has received loading dose of Plavix - Will consider IV antivirals based on clinical progress - Full code - Lovenox for DVT prophylaxis PDMP PDMP Reviewed: Last Reviewed 03/23/25 17:14 by Newton Ordoñez MD Attestations 2 Medical Necessity Statement*: Patient requires hospitalization for altered mental status, weakness, leukocytosis Diagnoses Weakness R53.1 Macrocytic anemia D53.9 Polymyalgia rheumatica M35.3 Elevated white blood cell count D72.829 Delirium R41.0 Altered mental status type: delirium
[2025-03-23] MEDS: oxyCODONE 5 mg IR Tab/Cap PO (18:29)
--- NOTE | 2025-03-23 20:46 | PHA.VACGOAL ---
Vancomycin Goal - Goal Vancomycin Goal:: 15-20 mg/L Vancomycin Indication:: Other - Therapy Current therapy:: Other Antibiotic (CEFTRIAXONE) Day of therpy:: Day [1]of [] . Actual body weight (kg): 65.907 kg - Data Labs: WBC 18.19 10^3/uL (3.29-11.43) H 03/23/25 03:59 RBC 2.92 10^6/uL (3.85-5.65) L 03/23/25 03:59 Hgb 9.20 g/dL (11.27-16.99) L 03/23/25 03:59 Hct 30.3 % (36-47) L 03/23/25 03:59 MCV 103.8 fl (85-98) H 03/23/25 03:59 MCH 31.5 pg (27-33) 03/23/25 03:59 MCHC 30.4 g/dL (30-55) 03/23/25 03:59 RDW 15.1 % (12.1-15.1) 03/23/25 03:59 Sodium 140 mmol/L (136-145) 03/23/25 03:59 Potassium 4.1 mmol/L (3.5-5.1) 03/23/25 03:59 Chloride 107 mmol/L (98-107) 03/23/25 03:59 Carbon Dioxide 24 mmol/L (22-29) 03/23/25 03:59 Anion Gap 13.1 (5-19) 03/23/25 03:59 BUN 24 mg/dL (8-23) H 03/23/25 03:59 Creatinine 0.8 mg/dL (0.5-0.9) 03/23/25 03:59 GFR Calculation Not Reportable 03/23/25 03:59 Treatment plan:: new consult Regimen:: 1000 MG Q24H maintenance dose.
[2025-03-23] MEDS: cefTRIAXone 1,000 mg SDV 1000 MG IVP (20:52)
--- NOTE | 2025-03-23 21:49 | USR_ITS ---
PROCEDURE INFORMATION: Exam: US Abdomen Complete Exam date and time: 03/23/2025 7:28 AM Age: 85 years old Clinical indication: Abnormal findings; Abnormal lab test; Elevated wbc; Additional info: Elevated white count and anorexia, look for biliary disease specifically please TECHNIQUE: Imaging protocol: Real-time ultrasound of the abdomen with image documentation. Complete exam. COMPARISON: US abdomen limited [id number] 01/19/2021 3:17 PM FINDINGS: Liver: Multiple benign-appearing cysts in the liver. No further follow-up needed. Liver otherwise unremarkable. Gallbladder: Mildly dilated gallbladder, with layering sludge. Wall thickness is at the upper limits of normal (3 mm). Biliary ducts: No appreciable intrahepatic biliary dilatation. Common bile duct is mildly dilated (9 mm). No appreciable choledocholithiasis. Pancreas: Visualized pancreas is unremarkable. Right kidney: Normal. No mass. No hydronephrosis. Left kidney: Benign-appearing left renal cysts. No further follow-up needed. Spleen: Normal. No splenomegaly. Aorta: Normal. No aneurysm. Inferior vena cava: Normal. US/US abdomen complete* [id number] IMPRESSION: 1. No intrahepatic biliary dilatation. Common bile duct is mildly dilated (9 mm). No appreciable choledocholithiasis. A component may be due to patient's age. According to clinical discretion, consider MRI/MRCP. 2. Mildly dilated gallbladder, containing sludge. No distinct cholelithiasis or sonographic evidence of cholecystitis.
[2025-03-24] VITALS (12 sets, daily range): BP systolic 88–121; BP diastolic 47–66; PULSE 81–92; RESP 13–22; TEMP 36.1–36.9; O2SAT 96–98
[2025-03-24 03:32] LABS: Hematocrit 28.5 % (36-47); Hemoglobin 8.90 g/dL (11.27-16.99); Mean Corpuscular HGB Conc 31.2 g/dL (30-55); Mean Corpuscular Hemoglobin 31.3 pg (27-33); Mean Corpuscular Volume 100.4 fl (85-98); Nucleated Red Blood Cells % 0 %; Platelet Count 296 10^3/cmm (157-399); Red Blood Count 2.84 10^6/uL (3.85-5.65); White Blood Count 14.86 10^3/uL (3.29-11.43)
[2025-03-24 04:05] LABS: Anion Gap 12.9 (5-19); Blood Urea Nitrogen 19 mg/dL (8-23); Calcium 9.2 mg/dL (8.5-10.5); Carbon Dioxide 24 mmol/L (22-29); Chloride 104 mmol/L (98-107); Creatinine Clr Calc Pharmacy 45.1382; Glucose 69 mg/dL (65-115); Osmolality Calculated 285 mOsm/kg (285-295); Potassium 3.9 mmol/L (3.5-5.1); Sodium 137 mmol/L (136-145)
[2025-03-24 09:14] LABS: Procalcitonin 0.28 ng/mL (0-0.5)
[2025-03-24] MEDS: pantoprazole 40 mg SDV IVP (09:20)
[2025-03-24] MEDS: piperacillin-tazobactam 3.375 GM in sodium chloride 0.9% (plus) 50 ML IV ×2 (09:20→17:44)
[2025-03-24 09:22] LABS: Lactic Sepsis W/Reflex 0.6 mmol/L (0.5-2.2)
--- NOTE | 2025-03-24 09:36 | P.CONIM_ITS ---
Providers/Reason For Consult 2 Consulting Physician/Specialty*: General Surgery Reason for Consult*: Perforated sigmoid diverticulitis with abscess Attending Physician: Anatoliy Peña M.D Primary Care Provider: Sudheer Canchola DO History of Present Illness History of Present Illness Gita Stubbs is a 85 year old female who presented with altered mental status to the hospital 2 days ago. During her initial evaluation it was thought to be coronary artery disease and she was taken to the Development And Housing Director but no evidence of disease needing intervention was noted. As part of the workup she had a CT scan of the chest abdomen pelvis and showed evidence of sigmoid diverticulitis with abscess in the deep pelvis measuring about 3 x 3 x 4 cm. I was consulted for these findings. Patient denies abdominal pain did have some diet this morning but has been having low appetite for the last 2 to 3 days. Review of Systems 2 General: Reports: 10 or more systems reviewed and unremarkable except in HPI and below Medications/Allergies Home Medications ?Medication ?Instructions ?Recorded ?Confirmed ?Last Taken ?Type ibuprofen 200 mg tablet (Motrin IB) 200 mg PO BID PRN Pain 10/28/19 03/22/25 Unknown History acyclovir 5 % topical ointment See Rx Instructions .Ro lower [place] 07/14/24 03/22/25 Unknown Rx .COMPLEX #15 grams ferrous sulfate 325 mg (65 mg 325 mg PO DAILY #90 tabs 10/30/24 03/22/25 Unknown Rx iron) tablet hydrocodone 10 mg-acetaminophen 1 tab PO BID PRN pain 1 day #1 tab 01/19/25 03/22/25 Unknown Rx 325 mg tablet prednisone 10 mg tablet See Rx Instructions .Route 0 02/24/25 03/22/25 Unknown Rx .COMPLEX #90 tabs wheeled walker, with brakes, seat #1 ea 02/24/2503/22 Unknown Rx sulfamethoxazole 800 1 tab PO BID infection 7 day s #14 02/26/25 03/22/25 Unknown Rx mg-trimethoprim 160 mg tablet tabs (Bactrim DS) pantoprazole 20 mg tablet,delayed See Rx Instructions .Route 03/03/25 03/22/25 Unknown Rx release .COMPLEX #60 tabs clopidogrel 75 mg tablet 75 mg PO DAILY #90 tabs 02/2203/22/25 Unknown Rx Allergies Allergy/AdvReac Type Severity Reaction Status Date / Time No Known Allergies Allergy Verified 02/24/25 09:28 Current Medications Generic Name Dose Route Start Last Admin Trade Name Freq PRN Reason Stop Dose Admin Enoxaparin Sodium 40 mg 03/23/25 21:00 03/23/25 20:52 Enoxaparin 40 Mg/0.4 Ml Syringe SUBCUT 40 mg Q24H KARLENE Administration Vancomycin HCl 1,000 mg/ 250 mls @ 250 mls/hr 03/23/25 16:00 03/23/25 18:36 Sodium Chloride IV Infused Q24H KARLENE Infusion Piperacillin Sod/Tazobactam 50 mls @ 12.5 mls/hr 03/24/25 08:30 03/24/25 09:20 Sod 3.375 gm/ Sodium Chloride IV 12.5 mls/hr Q8H KARLENE Administration Protocol Pantoprazole Sodium 40 mg 03/24/25 08:45 03/24/25 09:20 Pantoprazole 40 Mg Sdv IVP 40 mg Q24H KARLENE Administration PFSH Acute 2 PFSH: Medical History 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 Chronic narcotic use Restless leg syndrome Chronic left shoulder pain Arthritis Back Pain Doing well on current meds DDD (degenerative disc disease), lumbar Degenerative lumbar spinal stenosis Acquired spondylolisthesis Cervical disc disorder with myelopathy, unspecified cervical region Chronic neck and back pain Pain of right upper extremity Degenerative joint disease of both lower legs Radiculopathy, site unspecified Surgical History History of total left knee replacement Status post carpal tunnel release bilateral in 1979, left 2022 History of total right knee replacement Family History Other CAD (coronary artery disease) Hypertension Social History Smoking and tobacco/nicotine status: never used tobacco/nicotine Second hand smoke exposure: No Alcohol intake: never Substance/Drug Use: never 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 There is good bowel sounds. Urinary Catheter Management: Rollins: Cath Placed During This Visit: yes Reason for Continuing Indwelling Catheter: Accurate Measurement of Urinary Output in Critically Ill Patients Urinary Catheter Date of Insertion: 03/22/25 Urinary Catheter Time of Insertion: 23:00 Data 03/24/25 02:55 03/24/25 02:55 Micro: Microbiology 03/23/25 22:17 Blood Culture - Preliminary Blood SPECIMEN COLLECTED 03/23/25 22:16 Blood Culture - Preliminary Blood SPECIMEN COLLECTED 03/22/25 19:53 Blood Culture - Preliminary Blood NEGATIVE TO DATE 03/22/25 20:25 Blood Culture - Preliminary Blood SPECIMEN COLLECTED A&P Assessment and plan (1) residential current use of clopidogrel: (2) Diverticulitis: Plan 85-year-old female with perforated sigmoid diverticulitis with abscess. I personally reviewed the imaging, I agree there is a abscess in the deep pelvis measuring about 3 x 3 x 4 cm. The abscess is borderline in size to need drainage, since patient appears to be responding well to antibiotics and the white count has completely instantly trended down I think it will be appropriate to do a trial period of bowel rest and IV antibiotics and if there is continued improvement no additional intervention or drainage will be necessary. In the case of persistently elevated white count or other systemic signs of infection patient may require interventional radiology drainage of this abscess. Due to the location in the deep pelvis probably the drainage will require to be transgluteal. I have discussed this with medical team, they will discuss with our IR department to ensure we have capability and in anticipation for possible need for intervention. I have discussed the findings with the patient and family member they agree with the plan. Will continue with ice chips and sips today tomorrow we will plan to advance to a clear or full liquid diet depending on tolerance. 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
[2025-03-24] MEDS: morphine 4 mg/mL SDV 1 mL 2 MG IVP ×2 (10:45→18:16)
--- NOTE | 2025-03-24 10:45 | PC.CHAP ---
Pastoral Care Encounter/Spiritual Assessment Type of Contact [] Declined cook pie visit [] Patient/Family/Request visit [] Outpatient visit [] Follow-up visit [] Physician referral [] Code/Alert [x] Routine visit [] Staff referral [] Actively dying [x] Patient sleeping [x] Family support [] [] Out of room [] Palliative care [] [] Receiving care in room [] Pre-surgical visit [] Trauma [] Long length of stay [] ICU visit [] Other: Relational/Emotional Strength [] Patient feels connected with others/family/visitors/staff [] Distress [] Loneliness/isolation [] Abandonment Spirituality of Patient [x] Person of Cyndee [] Attends Shinto of their [place] [x] Believes in Prayer [] Reads Bible or Church materials [] There are Spiritual issues to be addressed Leather Roller Interventions [x] Prayer [x] Active listening [x] Non-anxious presence [x] Spiritual/emotional support [] Crisis/trauma care [] Spiritual counseling [] Bereavement support [] Provided bereavement packet [] Provided Bible/devotional materials [] Provided toy/stuffed animal, coloring book to patient or family member [] Provided Communion [] Anointing/Maybeury [] Salvation [x] Completed spiritual assessment [x] Other:Patient sleeping, interacted with family member. Impact on Illness or Injury [] Angry [] Fearful [] Anxious [] Often cries [] Exhaustion [] Unable to work [] Unable to attend zoroastrianism [] Unable to walk/stand [] Unable to read [] Unable to drive [] Unable to eat/drink [] Unable to sleep [] Unable to be with family [] Patient intubated [] Other: Summary Time spent with patient 5 min
[2025-03-24] MEDS: ondansetron 2 mg/ML SDV 2 mL 4 MG IVP ×2 (10:48→18:17)
--- NOTE | 2025-03-24 15:57 | P.PN_ITS ---
Subjective 2 Subjective: Patient was seen this morning, currently alert to person, to place, not to time, she follows some commands, she denies any abdominal pain, no nausea, no vomiting, she has not had a bowel movement as of yet, no fevers, no chills - Patient's grand daughters at bedside -I had a detailed discussion to her abou t her CT scan findings - CT scan shows evidence of findings anabella picious for acute sigmoid diverticulitis with possible focal contained perforation including a mildly complex gas and fluid collection along the course of the sigmoid colon - However Gita does not complain of abdominal pain, no nausea, no vomiting, she is passing gas from below - She had her dinner last night, she manny erated it well, she has good bowel sounds, no focal abdominal pain, no guarding, rebound, rigidity -Spoke to general surgery - She did have a couple of bites of her breakfast but did not eat much this morning she does not report a poor appetite - According to family she has had a poor appetite, for the last few days, but no complaints abdominal pain, no diarrhea or constipation, no bloody black stools, - Discussed with family we will keep her n.p.o. for now, gentle IV hydration, IV pain control, will consult general surgery Vitals/I&O/Wt Last Vital Signs Temp 97.5 F L 03/24/25 12:00 Pulse 90 03/24/25 12:00 Resp 20 H 03/24/25 12:00 BP 121/66 03/24/25 12:00 Pulse Ox 98 03/24/25 12:00 O2 Del Method Room Air 03/24/25 12:00 03/24/25 03/24/25 03/24/25 06:59 14:59 22:59 Intake Total 50 / 640 100 / 100 Output Total 150 / 700 Balance -100 / -60 100 / 100 Weight last 48 hrs Weight 69.536 kg Weight 65.907 kg Weight 65.771 kg Physical Exam 2 Const: COMMON NORMALS: no acute distress ORIENTATION/CONSCIOUSNESS: Yes awake, Yes oriented to person and Yes oriented to place; not oriented to time Resp: COMMON NORMALS: normal respiratory effort, No retractions, No use of accessory muscles and clear to auscultation bilaterally AUSCULTATION: clear to auscultation bilaterally Cardio: COMMON NORMALS: regular rate, regular rhythm, S1 normal heart sound present and S2 normal heart sound present RATE: regular rate RHYTHM: r egular rhythm HEART SOUNDS: S1 normal heart sound present and S2 normal heart sound present GI: COMMON NORMALS: Normal to inspection, nondistended, normoactive bowel sounds present and non-tender Extremity: COMMON NORMALS: no pedal edema Neuro: SENSORIUM/ORIENTATION: Yes oriented to person, Yes oriented to place and No oriented to time Psych: COMMON NORMALS: mental status grossly normal Urinary Catheter Management: Rollins: Cath Placed During This Visit: yes Reason for Continuing Indwelling Catheter: Accurate Measurement of Urinary Output in Critically Ill Patients Urinary Catheter Date of Insertion: 03/22/25 Urinary Catheter Time of Insertion: 23:00 Data 03/24/25 02:55 03/24/25 02:55 Micro: Microbiology 03/22/25 20:25 Blood Culture - Preliminary Blood Staphylococcus species 03/23/25 22:17 Blood Culture - Preliminary Blood SPECIMEN COLLECTED 03/23/25 22:16 Blood Culture - Preliminary Blood SPECIMEN COLLECTED 03/22/25 19:53 Blood Culture - Preliminary Blood NEGATIVE TO DATE A&P Assessment and plan (1) Weakness: (2) Macrocytic anemia: (3) Polymyalgia rheumatica: (4) Elevated white blood cell count: (5) Altered mental status: Plan Acute sigmoid diverticulitis, with perforation CT scan abdomen pelvis IMPRESSION: 1. Findings suspicious for acute sigmoid diverticulitis with a possible focal contained perforation, including a mildly complex gas and fluid collection along the course of the sigmoid colon. 2. Additional ancillary findings as above are overall similar to prior. Plan -N.p.o. -General Surgery consulted - IV fluids -Continue vancomycin -Broaden anaerobic coverage to Zosyn -Serial abdominal exams -Morphine for pain control -Zofran for nausea Altered mental status, weakness, leukocytosis, likely secondary to above - Neurochecks - NIH stroke scale - Aspiration precautions - Seizure precautions - Blood cultures -Urinalysis - Full code - Lovenox for DVT prophylaxis Zofran for nausea STEMI Cardiac echo CONCLUSIONS LV systolic function is normal with EF of 60-65% Grade 1 diastolic dysfunction Mild mitral regurgitation - Cardiogram did not show obstructive CAD - Medical managed PDMP PDMP Reviewed: Last Reviewed 03/23/25 17:14 by Newton Ordoñez MD Attestations 2 Medical Necessity Statement*: Patient requires hospitalization for perforated acute sigmoid diverticulitis Diagnoses Weakness R53.1 Macrocytic anemia D53.9 Polymyalgia rheumatica M35.3 Elevated white blood cell count D72.829 Delirium R41.0 Altered mental status type: delirium
[2025-03-24] MEDS: VANCOMYCIN ADD-Vantage 1,000 MG in 0.9% NaCl ADD-Vantage 250 ML 250 MG IV (16:13)
--- NOTE | 2025-03-24 18:32 | PC.NURSE ---
family issue Pt's daughter in law Lashawn called 3x and asked permission from Ms Pelayo if okay to provide her an update. Per Patient no info to give to her. Son Demarcus at bedside and he said he will let them know.
--- NOTE | 2025-03-24 19:14 | PC.NURSE ---
Called Surgeon Asked that pt request if she can eat and reminded her that it is only sips of water and ice chips, asked if she can have a broth. Dr ramírez to give her a small cup of broth tonight. brought pt beef broth.
[2025-03-25] VITALS (15 sets, daily range): BP systolic 88–117; BP diastolic 47–70; PULSE 76–116; RESP 13–25; TEMP 36.6–36.9; O2SAT 96–98
[2025-03-25] MEDS: ondansetron 2 mg/ML SDV 2 mL 4 MG IVP ×2 (01:06→05:59)
[2025-03-25] MEDS: morphine 4 mg/mL SDV 1 mL 2 MG IVP ×4 (01:06→20:44)
[2025-03-25] MEDS: piperacillin-tazobactam 3.375 GM in sodium chloride 0.9% (plus) 50 ML IV ×3 (01:09→17:49)
[2025-03-25 02:46] LABS: Hematocrit 28.5 % (36-47); Hemoglobin 8.70 g/dL (11.27-16.99); Mean Corpuscular HGB Conc 30.5 g/dL (30-55); Mean Corpuscular Hemoglobin 31.1 pg (27-33); Mean Corpuscular Volume 101.8 fl (85-98); Nucleated Red Blood Cells % 0 %; Platelet Count 309 10^3/cmm (157-399); Red Blood Count 2.80 10^6/uL (3.85-5.65); White Blood Count 12.68 10^3/uL (3.29-11.43)
[2025-03-25 03:09] LABS: Alanine Aminotransferase 33 U/L (0-33); Albumin Level 2.2 g/dL (3.5-5.2); Alkaline Phosphatase 120 U/L (35-105); Anion Gap 15.1 (5-19); Aspartate Amino Transferase 23 U/L (0-32); Blood Urea Nitrogen 16 mg/dL (8-23); Calcium 9.3 mg/dL (8.5-10.5); Carbon Dioxide 22 mmol/L (22-29); Chloride 106 mmol/L (98-107); Creatinine Clr Calc Pharmacy 46.3592; Globulin 2.6 g/dL (1.3-4.6); Glucose 48 mg/dL (65-115); Magnesium 1.9 mg/dL (1.7-2.3); Osmolality Calculated 286 mOsm/kg (285-295); Potassium 4.1 mmol/L (3.5-5.1); Sodium 139 mmol/L (136-145); Total Protein 4.8 g/dL (6.6-8.7)
--- NOTE | 2025-03-25 04:05 | ECG_ITS ---
[facility] Cou[facility] Test Date: 2025-03-25 Pat Name: Gita Stubbs Department: Room: 108 Gender: Female Fur Trimmer: : 1940 Requested By: Carley Gaston Order Number: [id number] Shruthi MD: Anatoliy Peña M.D. Measurements Intervals [place] Rate: 83 P: 70 GA: 135 QRS: -68 QRSD: 89 T: 48 QT: 350 QTc: 412 Interpretive Statements SINUS RHYTHM LOW QRS VOLTAGE [QRS DEFLECTION < 0.5/1.0 mV IN LIMB/CHEST LEADS] PATTERN CONSISTENT WITH PULMONARY DISEASE LEFT ANTERIOR FASCICULAR BLOCK [QRS AXIS <= -45, QR IN I, RS IN II] Compared to ECG 03/22/2025 23:19:50 Left anterior fascicular block now present Left-axis deviation no longer present Myocardial infarct finding no longer present Electronically Signed On 03-26-2025 08:57:18 CDT by Anatoliy Peña M.D. [email or web address]
--- NOTE | 2025-03-25 04:24 | PC.NURSE ---
Contacted Physician because patients lab collected glucose came back at 48, I rechecked before calling her and the capillary glucose was 66, the patient was awake and alert but could not have juice due to NPO status related to bowel issues. Doctor requested D10 to be ran at 100mls/hr, and accuchecks to be done [id number]. 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 Went in the room and chest pain was resolved but still got an EKG that showed sinus rhythm with qrs deflection consisted with pulmonary dx and a left anterior fasicular block. Rechecked patients blood glucose after 15 minutes and it was 91. Care ongoing
--- NOTE | 2025-03-25 05:23 | PC.NURSE ---
Addendum entered by Dariela Vargas RN 03/25/25 05:46: The provider also ordered for the normal saline to be put on hold in fear of fluid volume overload. Original Note: I did the 4 accuchecks every 15 minutes per doctors order and notified her of all of the results, then called about the last one to see what she wanted to do, last BGL 88, she ordered to keep the D10 running and to check BGL every hour.
--- NOTE | 2025-03-25 07:37 | P.PN_ITS ---
Subjective 2 Subjective: 85-year-old female who is admitted to [facility] with perforated diverticulitis with abscess. She has continuously improved white count continues to trend down there is minimal abdominal pain left lower quadrant. Patient feels hungry. Vitals/I&O/Wt Last Vital Signs Temp 97.8 F 03/25/25 07:26 Pulse 76 03/25/25 07:26 Resp 18 03/25/25 07:26 BP 115/63 03/25/25 07:26 Pulse Ox 97 03/25/25 07:26 O2 Del Method Room Air 03/25/25 04:00 03/24/25 03/25/25 03/25/25 22:59 06:59 14:59 Intake Total 300 / 400 948.75 / 1348.75 Output Total 475 / 475 75 / 550 Balance -175 / -75 873.75 / 798.75 Weight last 48 hrs Weight 149 lb 8 oz Weight 153 lb 4.8 oz Physical Exam 2 GI: OTHER: Benign abdominal exam there is just mild tenderness in the left lower quadrant. Urinary Catheter Management: Rollins: Cath Placed During This Visit: yes Reason for Continuing Indwelling Catheter: Other Urinary Catheter Date of Insertion: 03/22/25 Urinary Catheter Time of Insertion: 23:00 Data 03/25/25 02:38 03/25/25 02:38 Micro: Microbiology 03/23/25 22:17 Blood Culture - Preliminary Blood NEGATIVE TO DATE 03/23/25 22:16 Blood Culture - Preliminary Blood NEGATIVE TO DATE 03/22/25 20:25 Blood Culture - Preliminary Blood Staphylococcus species A&P Assessment and plan (1) Diverticulitis: Plan 85-year-old female with perforated diverticulitis with abscess, being managed with antibiotics. Waken continues to trend down it was 14 yesterday and is 12 today. We will attempt clear liquid diet today and advance to full liquids as tolerated we will probably give patient that diet for the next 48 hours and after that we will hopefully can advance to a GI soft diet before discharge. Indicates a persistently elevated white count or uptrending of the white count she will require repeat CT scan for evaluation for possible need of drainage of her fluid collection. All other management per medical team PDMP PDMP Reviewed: Not Reviewed Attestations 2 Medical Necessity Statement*: Per medical team Coding Level of Care Code Acute Code for [facility] Diagnoses Diverticulitis K57.92
[2025-03-25] MEDS: pantoprazole 40 mg SDV IVP (08:36)
--- NOTE | 2025-03-25 09:23 | PC.SOCIAL ---
IMM Update pg 2 of IMM updated and reviewed w/ patient. Copy provided and copy dated, initialed and placed in chart.
--- NOTE | 2025-03-25 12:10 | P.PN_ITS ---
Subjective 2 Subjective: Patient was seen this morning, she is alert to person, to place, not to time she follows commands, no fevers, no chills, no cough, no abdominal pain is passing gas she is much more alert awake, patient son is at bedside we discussed her deconditioning, will have PT OT evaluate her I recommend for her to go to rehab facility Vitals/I&O/Wt Last Vital Signs Temp 97.8 F 03/25/25 07:26 Pulse 76 03/25/25 07:26 Resp 18 03/25/25 07:26 BP 115/63 03/25/25 07:26 Pulse Ox 97 03/25/25 07:26 O2 Del Method Room Air 03/25/25 04:00 03/24/25 03/25/25 03/25/25 22:59 06:59 14:59 Intake Total 300 / 400 948.75 / 1348.75 696.667 / 696.667 Output Total 475 / 475 75 / 550 Balance -175 / -75 873.75 / 798.75 696.667 / 696.667 Weight last 48 hrs Weight 67.812 kg Weight 69.536 kg Physical Exam 2 Const: COMMON NORMALS: no acute distress ORIENTATION/CONSCIOUSNESS: Yes awake, Yes oriented to person and Yes oriented to place Resp: COMMON NORMALS: normal respiratory effort, No retractions, No use of accessory muscles and clear to auscultation bilaterally AUSCULTATION: clear to auscultation bilaterally Cardio: COMMON NORMALS: regular rate, regular rhythm, S1 normal heart sound present and S2 normal heart sound present RATE: regular rate RHYTHM: r egular rhythm HEART SOUNDS: S1 normal heart sound present and S2 normal heart sound present GI: COMMON NORMALS: Normal to inspection, nondistended, normoactive bowel sounds present and non-tender Extremity: COMMON NORMALS: no pedal edema Neuro: SENSORIUM/ORIENTATION: Yes oriented to person and Yes oriented to place Psych: COMMON NORMALS: mental status grossly normal Urinary Catheter Management: Rollins: Cath Placed During This Visit: yes Reason for Continuing Indwelling Catheter: Other Urinary Catheter Date of Insertion: 03/22/25 Urinary Catheter Time of Insertion: 23:00 Data 03/25/25 02:38 03/25/25 02:38 Micro: Microbiology 03/23/25 22:17 Blood Culture - Preliminary Blood NEGATIVE TO DATE 03/23/25 22:16 Blood Culture - Preliminary Blood NEGATIVE TO DATE 03/22/25 20:25 Blood Culture - Preliminary Blood Staphylococcus species A&P Assessment and plan (1) Weakness: (2) Macrocytic anemia: (3) Polymyalgia rheumatica: (4) Elevated white blood cell count: (5) Altered mental status: Plan Acute sigmoid diverticulitis, with perforation CT scan abdomen pelvis IMPRESSION: 1. Findings suspicious for acute sigmoid diverticulitis with a possible focal contained perforation, including a mildly complex gas and fluid collection along the course of the sigmoid colon. 2. Additional ancillary findings as above are overall similar to prior. Plan -N.p.o. -General Surgery consulted - IV fluids -Continue vancomycin -Broaden anaerobic coverage to Zosyn -Serial abdominal exams -Morphine for pain control -Zofran for nausea Staphylococcus species in 1 of 4 blood cultures - Likely contamination - Will follow repeat blood cultures - Continue vancomycin Altered mental status, weakness, leukocytosis, likely secondary to above - Neurochecks - NIH stroke scale - Aspiration precautions - Seizure precautions - Blood cultures -Urinalysis - Full code - Lovenox for DVT prophylaxis Zofran for nausea STEMI Cardiac echo CONCLUSIONS LV systolic function is normal with EF of 60-65% Grade 1 diastolic dysfunction Mild mitral regurgitation - Cardiogram did not show obstructive CAD - Medical managed PDMP PDMP Reviewed: Last Reviewed 03/23/25 17:14 by Newton Ordoñez MD Attestations 2 Medical Necessity Statement*: Patient requires hospitalization for acute sigmoid diverticulitis, staph bacteremia, altered mental status Diagnoses Weakness R53.1 Macrocytic anemia D53.9 Polymyalgia rheumatica M35.3 Elevated white blood cell count D72.829 Delirium R41.0 Altered mental status type: delirium
[2025-03-25] MEDS: VANCOMYCIN ADD-Vantage 1,000 MG in 0.9% NaCl ADD-Vantage 250 ML 250 MG IV (14:54)
--- NOTE | 2025-03-25 22:47 | PC.NURSE ---
Checked at 2000 will check again at 0000 for every 4 hours.
[2025-03-26] VITALS (12 sets, daily range): BP systolic 87–112; BP diastolic 37–73; PULSE 76–98; RESP 12–26; TEMP 36.4–36.8; O2SAT 95–97
[2025-03-26] MEDS: piperacillin-tazobactam 3.375 GM in sodium chloride 0.9% (plus) 50 ML IV ×3 (00:46→17:28)
[2025-03-26 03:13] LABS: Hematocrit 28.8 % (36-47); Hemoglobin 9.30 g/dL (11.27-16.99); Mean Corpuscular HGB Conc 32.3 g/dL (30-55); Mean Corpuscular Hemoglobin 32.0 pg (27-33); Mean Corpuscular Volume 99.0 fl (85-98); Nucleated Red Blood Cells % 0 %; Platelet Count 363 10^3/cmm (157-399); Red Blood Count 2.91 10^6/uL (3.85-5.65); White Blood Count 12.41 10^3/uL (3.29-11.43)
[2025-03-26 03:40] LABS: Alanine Aminotransferase 36 U/L (0-33); Albumin Level 2.3 g/dL (3.5-5.2); Alkaline Phosphatase 130 U/L (35-105); Anion Gap 15.8 (5-19); Aspartate Amino Transferase 24 U/L (0-32); Blood Urea Nitrogen 13 mg/dL (8-23); Calcium 9.0 mg/dL (8.5-10.5); Carbon Dioxide 22 mmol/L (22-29); Chloride 103 mmol/L (98-107); Creatinine Clr Calc Pharmacy 40.6926; Globulin 2.7 g/dL (1.3-4.6); Glucose 165 mg/dL (65-115); Magnesium 1.8 mg/dL (1.7-2.3); Osmolality Calculated 288 mOsm/kg (285-295); Potassium 3.8 mmol/L (3.5-5.1); Sodium 137 mmol/L (136-145); Total Protein 5.0 g/dL (6.6-8.7)
[2025-03-26] MEDS: morphine 4 mg/mL SDV 1 mL 2 MG IVP ×3 (05:45→20:55)
--- NOTE | 2025-03-26 06:51 | P.PN_ITS ---
Subjective 2 Subjective: 85-year-old female with acute sigmoid di verticulitis with perforation and abscess. Patient is doing well over the last 24 hours has tolerated a full liquid diet no significant abdominal pain vital signs are stable but her white count is still 12.4. Vitals/I&O/Wt Last Vital Signs Temp 97.8 F 03/26/25 04:00 Pulse 90 03/26/25 04:00 Resp 16 03/26/25 06:22 BP 101/49 03/26/25 04:00 Pulse Ox 96 03/26/25 04:00 O2 Del Method Room Air 03/26/25 04:00 03/25/25 03/25/25 03/26/25 14:59 22:59 06:59 Intake Total 746.667 / 746.667 325 / 1071.667 290 / 1361.667 Output Total 400 / 400 100 / 500 Balance 746.667 / 746.667 -75 / 671.667 190 / 861.667 Weight last 48 hrs Weight 152 lb 9.6 oz Weight 149 lb 8 oz Physical Exam 2 GI: OTHER: Abdomen is soft there is mild tenderness to palpation in the left lower quadrant. Urinary Catheter Management: Rollins: Cath Placed During This Visit: yes Reason for Continuing Indwelling Catheter: Accurate Measurement of Urinary Output in Critically Ill Patients Urinary Catheter Date of Insertion: 03/22/25 Urinary Catheter Time of Insertion: 23:00 Data 03/26/25 02:58 03/26/25 02:58 A&P Assessment and plan (1) Diverticulitis: Plan Patient showing adequate progression, since patient does have an intra-abdominal abscess we should ideally complete 5 days of IV antibiotics before transitioning to a p.o. regimen. I will continue clear liquid diet today with the hopes of advancing to GI soft tomorrow before discharge. In the case of a persistently elevated white count I will recommend that we do a CT scan of the abdomen and pelvis tomorrow morning to evaluate the fluid collection before deciding on transition of the patient to GI soft diet to evaluate the size of the collection and see if she needs any kind of drainage. Patient shows understanding agrees with the plan. Appreciate all other management per primary team PDMP PDMP Reviewed: Not Reviewed Attestations 2 Medical Necessity Statement*: Per medical team Coding Level of Care Code Acute Code for [facility] Fwd Diagnoses Diverticulitis K57.92
[2025-03-26] MEDS: pantoprazole 40 mg SDV IVP (08:45)
--- NOTE | 2025-03-26 13:13 | P.PN_ITS ---
Subjective 2 Subjective: Patient was seen this morning, alert to person, to place, time, she does follow commands no abdominal pain complaints, no fevers, no chills, does report poor appetite, passing gas has not had a bowel movement Vitals/I&O/Wt Last Vital Signs Temp 97.7 F 03/26/25 07:16 Pulse 76 03/26/25 07:16 Resp 12 03/26/25 07:16 BP 94/56 03/26/25 07:16 Pulse Ox 95 03/26/25 07:16 O2 Del Method Room Air 03/26/25 04:00 03/25/25 03/26/25 03/26/25 22:59 06:59 14:59 Intake Total 325 / 1071.667 290 / 1361.667 50 / 50 Output Total 400 / 400 100 / 500 Balance -75 / 671.667 190 / 861.667 50 / 50 Weight last 48 hrs Weight 69.218 kg Weight 67.812 kg Physical Exam 2 Const: COMMON NORMALS: no acute distress ORIENTATION/CONSCIOUSNESS: Yes awake, Yes oriented to person and Yes oriented to place; not oriented to time Resp: COMMON NORMALS: normal respiratory effort, No retractions, No use of accessory muscles and clear to auscultation bilaterally AUSCULTATION: clear to auscultation bilaterally Cardio: COMMON NORMALS: regular rate, regular rhythm, S1 normal heart sound present and S2 normal heart sound present RATE: regular rate RHYTHM: r egular rhythm HEART SOUNDS: S1 normal heart sound present and S2 normal heart sound present GI: COMMON NORMALS: Normal to inspection, nondistended, normoactive bowel sounds present and non-tender Extremity: COMMON NORMALS: no pedal edema Neuro: SENSORIUM/ORIENTATION: Yes oriented to person, Yes oriented to place and No oriented to time Psych: COMMON NORMALS: mental status grossly normal Urinary Catheter Management: Rollins: Cath Placed During This Visit: yes Reason for Continuing Indwelling Catheter: Accurate Measurement of Urinary Output in Critically Ill Patients Urinary Catheter Date of Insertion: 03/22/25 Urinary Catheter Time of Insertion: 23:00 Data 03/26/25 02:58 03/26/25 02:58 Micro: Microbiology 03/22/25 20:25 Blood Culture - Preliminary Blood Staphylococcus hominis A&P Assessment and plan (1) Weakness: (2) Macrocytic anemia: (3) Polymyalgia rheumatica: (4) Elevated white blood cell count: (5) Altered mental status: Plan Acute sigmoid diverticulitis, with perforation CT scan abdomen pelvis IMPRESSION: 1. Findings suspicious for acute sigmoid diverticulitis with a possible focal contained perforation, including a mildly complex gas and fluid collection along the course of the sigmoid colon. 2. Additional ancillary findings as above are overall similar to prior. Plan -N.p.o. -General Surgery consulted -Advance to full liquid diet -Repeat CT scan with abdomen and pelvis with IV contrast tomorrow morning - IV fluids -Continue vancomycin -Broaden anaerobic coverage to Zosyn -Serial abdominal exams -Morphine for pain control -Zofran for nausea Staphylococcus species in 1 of 4 blood cultures -Showing Staphylococcus hominis - Likely contamination - Will follow repeat blood cultures, currently pending - Continue vancomycin Altered mental status, weakness, leukocytosis, likely secondary to above - Neurochecks - NIH stroke scale - Aspiration precautions - Seizure precautions - Blood cultures -Urinalysis - Full code - Lovenox for DVT prophylaxis Zofran for nausea STEMI Cardiac echo CONCLUSIONS LV systolic function is normal with EF of 60-65% Grade 1 diastolic dysfunction Mild mitral regurgitation - Cardiogram did not show obstructive CAD - Medical managed PDMP PDMP Reviewed: Last Reviewed 03/23/25 17:14 by Newton Ordoñez MD Attestations 2 Medical Necessity Statement*: Patient requires hospitalization for perforated acute diverticulitis Diagnoses Weakness R53.1 Macrocytic anemia D53.9 Polymyalgia rheumatica M35.3 Elevated white blood cell count D72.829 Delirium R41.0 Altered mental status type: delirium
[2025-03-26] MEDS: VANCOMYCIN ADD-Vantage 1,000 MG in 0.9% NaCl ADD-Vantage 250 ML 250 MG IV (15:57)
[2025-03-27] VITALS (12 sets, daily range): BP systolic 84–111; BP diastolic 47–65; PULSE 73–94; RESP 18–26; TEMP 36.4–37; O2SAT 91–96
[2025-03-27] MEDS: piperacillin-tazobactam 3.375 GM in sodium chloride 0.9% (plus) 50 ML IV ×2 (02:48→09:40)
[2025-03-27 03:38] LABS: Hematocrit 27.9 % (36-47); Hemoglobin 8.30 g/dL (11.27-16.99); Mean Corpuscular HGB Conc 29.7 g/dL (30-55); Mean Corpuscular Hemoglobin 30.0 pg (27-33); Mean Corpuscular Volume 100.7 fl (85-98); Nucleated Red Blood Cells % 0 %; Platelet Count 354 10^3/cmm (157-399); Red Blood Count 2.77 10^6/uL (3.85-5.65); White Blood Count 8.72 10^3/uL (3.29-11.43)
[2025-03-27 04:09] LABS: Alanine Aminotransferase 30 U/L (0-33); Albumin Level 2.1 g/dL (3.5-5.2); Alkaline Phosphatase 115 U/L (35-105); Anion Gap 11.5 (5-19); Aspartate Amino Transferase 17 U/L (0-32); Blood Urea Nitrogen 11 mg/dL (8-23); Calcium 8.8 mg/dL (8.5-10.5); Carbon Dioxide 24 mmol/L (22-29); Chloride 108 mmol/L (98-107); Creatinine Clr Calc Pharmacy 41.1131; Globulin 2.4 g/dL (1.3-4.6); Glucose 118 mg/dL (65-115); Magnesium 1.9 mg/dL (1.7-2.3); Osmolality Calculated 290 mOsm/kg (285-295); Potassium 3.5 mmol/L (3.5-5.1); Sodium 140 mmol/L (136-145); Total Protein 4.5 g/dL (6.6-8.7)
[2025-03-27] MEDS: VANCOMYCIN ADD-Vantage 750 MG in 0.9% NaCl ADD-Vantage 250 ML 250 MG IV (05:08)
--- NOTE | 2025-03-27 06:00 | CTR_ITS ---
PROCEDURE INFORMATION: Exam: CT Abdomen And Pelvis With Contrast Exam date and time: 03/27/2025 7:35 AM Age: 85 years old Clinical indication: Abdominal pain; Additional info: Perforated diverticluitis with abscess, 03/27/2025 at 6:00 am or so TECHNIQUE: Imaging protocol: Computed tomography of the abdomen and pelvis with contrast. Radiation optimization: All CT scans at this facility use at least one of these dose optimization techniques: automated exposure control; mA and/or kV adjustment per patient size (includes targeted exams where dose is matched to clinical indication); or iterative reconstruction. Contrast material: OMNI 350; Contrast volume: 100 ml; Contrast route: INTRAVENOUS (IV); COMPARISON: CT abdomen w con* [id number] 02/11/2021 12:26 PM RADIATION DOSE METRICS: Total DLP (mGy-cm): 481.59 FINDINGS: Lungs: See Pleural spaces finding. Pleural spaces: Trace bilateral pleural effusions, [id number]. Mild overlying passive atelectasis. Liver: Redemonstrated multiple benign-appearing cysts in the liver, , for example conglomerate lobulated cyst in the posterior right lobe measuring 10.3 x 6.2 cm axial, mildly progressed from 2020 study (8.5 x 4.1 cm).. Liver otherwise unremarkable. No distinct surface nodularity. Gallbladder and biliary ducts: Decompressed gallbladder with mild wall thickening. No distinct calculi or inflammatory change. Mild intrahepatic biliary dilatation. Moderate extrahepatic biliary dilatation, with CBD measuring up to 1.3 cm in diameter. No appreciable choledocholithiasis. Pancreas: Multiple small cystic lesions scattered throughout the pancreatic body, possibly contiguous with the cystic duct, for example measuring 1.3 x 1.5 cm in the midbody. At the pancreatic head, note made of lobulated cystic lesion measuring 2.0 x 2.1 cm axial. Spleen: Normal. No splenomegaly. Adrenal glands: Normal. No mass. Kidneys and ureters: Benign-appearing bilateral renal cysts. No further follow-up needed. Punctate nonobstructive bilateral renal calculi, right greater than left, measuring up to 3 mm in the bilateral kidneys. No ureteral calculi bilaterally. Stomach and bowel: Baseline moderate sigmoid colonic diverticulosis with acute diverticulitis in the mid sigmoid segment. Associated mid sigmoid colonic perforation and abscess measuring 6.0 x 4.2 cm located in the left pelvis . Appendix: Appendix is normal. Intraperitoneal space: Unremarkable. No free air. No significant fluid collection. Vasculature: Unremarkable. No abdominal aortic aneurysm. Lymph nodes: Unremarkable. No enlarged lymph nodes. Urinary bladder: Unremarkable as visualized. Reproductive: Unremarkable as visualized. 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 Moderate to severe degenerative change in the remainder lumbar spine. Mild levocurvature of the lumbar spine. No acute osseous or soft tissue abnormality. Soft tissues: Nonspecific mild heterogeneity of the left gluteus jameson musculature. No distinct mass or drainable fluid collection. May represent infectious or inflammatory myositis. Trace scattered gas in the lower ventral abdominal wall likely related to recent injections. CT/CT abdomen pelvis w con* [id number] IMPRESSION: 1. Mid sigmoid colonic perforation and abscess measuring 6.0 x 4.2 cm located in the left pelvis. Baseline moderate sigmoid colonic diverticulosis with acute diverticulitis in the mid sigmoid segment. 2. Mild intrahepatic biliary dilatation. Moderate extrahepatic biliary dilatation, with CBD measuring up to 1.3 cm in diameter. No appreciable choledocholithiasis. 3. Multiple small cystic lesions scattered throughout the pancreatic body, possibly contiguous with the cystic duct, for example measuring 1.3 x 1.5 cm in the midbody. At the pancreatic head, note made of lobulated cystic lesion measuring 2.0 x 2.1 cm axial. These may represent IPMNs. A mucinous neoplasm is not excluded of the pancreatic head. Recommend follow-up MRI/MRCP with contrast for complete evaluation. 4. Nonspecific mild heterogeneity of the left gluteus jameson musculature. No distinct mass or drainable fluid collection. May represent infectious or inflammatory myositis. Recommend correlation. 5. Trace bilateral pleural effusions, [id number]. Mild overlying passive atelectasis. 6. Decompressed gallbladder with mild wall thickening. No distinct calculi or inflammatory change. COMMENTS: Consistent with the [employer]'s Incidental Findings Committee white paper (J Am Luz Elena Radiol 2018): Any incidental renal lesion less than 1 cm or classified as too small to characterize, or any incidental cystic renal lesion characterized as simple-appearing, is likely benign. No follow-up imaging is recommended for these lesions per consensus recommendations based on imaging criteria.
[2025-03-27] MEDS: morphine 4 mg/mL SDV 1 mL 2 MG IVP ×3 (06:28→14:10)
[2025-03-27] MEDS: iohexol 350 mg/mL 500 mL Btl (per mL) IV (07:45)
--- NOTE | 2025-03-27 08:22 | PC.SOCIAL ---
IMM Update Pg. 2 of IMM Updated and copy provided at bedside.
--- NOTE | 2025-03-27 09:12 | P.PN_ITS ---
Subjective 2 Subjective: 85-year-old female with perforated diver ticulitis with abscess. Has been on liquid diet over the last 48 hours and tolerating feeling better no significant abdominal pain. Vitals/I&O/Wt Last Vital Signs Temp 98.6 F 03/27/25 08:00 Pulse 92 03/27/25 08:00 Resp 18 03/27/25 08:00 BP 84/65 03/27/25 08:00 Pulse Ox 96 03/27/25 00:00 O2 Del Method Room Air 03/27/25 05:38 03/26/25 03/27/25 03/27/25 22:59 06:59 14:59 Intake Total 740 / 790 996.667 / 1786.667 300 / 300 Output Total 275 / 275 100 / 375 Balance 465 / 515 896.667 / 1411.667 300 / 300 Weight last 48 hrs Weight 149 lb Weight 152 lb 9.6 oz Physical Exam 2 GI: OTHER: Abdomen is soft there is only mild tenderness to palpation in the lower abdomen Urinary Catheter Management: Rollins: Cath Placed During This Visit: yes Reason for Continuing Indwelling Catheter: Accurate Measurement of Urinary Output in Critically Ill Patients Urinary Catheter Date of Insertion: 03/22/25 Urinary Catheter Time of Insertion: 23:00 Data 03/27/25 02:57 03/27/25 02:57 Micro: Microbiology 03/22/25 20:25 Blood Culture - Preliminary Blood Staphylococcus hominis A&P Assessment and plan (1) Diverticulitis: Plan Clinically patient showing significant improvement she is in good spirits no significant abdominal pain, and she is hungry, the white count has also trended down consistently in 2 days seeing normal range. Unfortunately a repeat CT scan of the abdomen pelvis done today show evidence of an increased size of the pelvic abscess which is now measured at 6 x 4 cm. This indicates that there is a high chance of failure of outpatient therapy and at this point I think the safest approach will be to proceed with abscess drainage by interventional radiology to allow for complete resolution of her sigmoid diverticulitis. Patient shows understanding and the case was also discussed with medical team and family member. Medical team will arrange for possible transfer to higher level of care as IR is not available at this time in our institution. PDMP PDMP Reviewed: Not Reviewed Attestations 2 Medical Necessity Statement*: Pending evaluation higher level of care for possible IR drainage of pelvic abscess Coding Level of Care Code Acute Code for [facility] Fwd Diagnoses Diverticulitis K57.92
[2025-03-27] MEDS: pantoprazole 40 mg SDV IVP (09:39)
[2025-03-27] MEDS: albumin 37.5 GM/150 ML VIAL IV (09:40)
[2025-03-27] MEDS: potassium phosphate (mEq K) 40 MEQ in sodium chloride 0.9% (100 ml) 100 ML 27.25 MEQ IV (09:40)
--- NOTE | 2025-03-27 10:24 | P.PN_ITS ---
Subjective 2 Subjective: Patient was seen this morning, currently alert to person, to place, not to time but she follows commands, afebrile overnight, blood pressures are soft but denies any chest pain, palpitations, no lightheadedness, no dizziness, no nausea, no vomiting, she is passing gas and has not had a bowel movement, no abdominal pain, no abdominal tenderness to examination - I had a detailed discussion with her a bout her CT scan findings, she was found to have a repeat CAT scan pelvic abscess measuring 6 x 4 cm, that will need IR drainage, for optimal outcome recommend IR intervention and drainage of abscess - However we do not have IR capabilities here at [facility] given that today is a holiday and over the weekend -Discussed with patient's son also again at bedside - Discussed findings as above - Discussed risk and benefits of transfe r to tertiary level center, patient and son voiced understanding, all questions answered, agreed to proceed - Spoke to [facility] transfer line, pushed the images to their interventional radiologist - Patient has been accepted at [facility], spoke to their hospitalist coordinator, discussed case in detail, patient has been accepted awaiting a bed at [facility] in [place] - Discussed with family risk and benefit s of transfer, patient and son voiced understanding, all questions answered, agreed to proceed Vitals/I&O/Wt Last Vital Signs Temp 98.6 F 03/27/25 08:00 Pulse 92 03/27/25 08:00 Resp 26 H 03/27/25 09:46 BP 84/65 03/27/25 08:00 Pulse Ox 96 03/27/25 00:00 O2 Del Method Room Air 03/27/25 05:38 03/26/25 03/27/25 03/27/25 22:59 06:59 14:59 Intake Total 740 / 790 996.667 / 1786.667 300 / 300 Output Total 275 / 275 100 / 375 Balance 465 / 515 896.667 / 1411.667 300 / 300 Weight last 48 hrs Weight 67.585 kg Weight 69.218 kg Physical Exam 2 Const: COMMON NORMALS: no acute distress ORIENTATION/CONSCIOUSNESS: Yes awake, Yes oriented to person and Yes oriented to place; not oriented to time Resp: COMMON NORMALS: normal respiratory effort, No retractions, No use of accessory muscles and clear to auscultation bilaterally AUSCULTATION: clear to auscultation bilaterally Cardio: COMMON NORMALS: regular rate, regular rhythm, S1 normal heart sound present and S2 normal heart sound present RATE: regular rate RHYTHM: r egular rhythm HEART SOUNDS: S1 normal heart sound present and S2 normal heart sound present GI: COMMON NORMALS: Normal to inspection, nondistended, normoactive bowel sounds present and non-tender Extremity: COMMON NORMALS: no pedal edema Neuro: SENSORIUM/ORIENTATION: Yes oriented to person, Yes oriented to place and No oriented to time Psych: COMMON NORMALS: mental status grossly normal Urinary Catheter Management: Rollins: Cath Placed During This Visit: yes Reason for Continuing Indwelling Catheter: Accurate Measurement of Urinary Output in Critically Ill Patients Urinary Catheter Date of Insertion: 03/22/25 Urinary Catheter Time of Insertion: 23:00 Data 03/27/25 02:57 03/27/25 02:57 Micro: Microbiology 03/22/25 20:25 Blood Culture - Preliminary Blood Staphylococcus hominis A&P Assessment and plan (1) Weakness: (2) Macrocytic anemia: (3) Polymyalgia rheumatica: (4) Elevated white blood cell count: (5) Altered mental status: Plan Acute sigmoid diverticulitis, with perforation CT scan abdomen pelvis IMPRESSION: 1. Findings suspicious for acute sigmoid diverticulitis with a possible focal contained perforation, including a mildly complex gas and fluid collection along the course of the sigmoid colon. 2. Additional ancillary findings as above are overall similar to prior. Repeat CT abomen and pelvis scan 03/27/2025 CT/CT abdomen pelvis w con* [id number] IMPRESSION: 1. Mid sigmoid colonic perforation and abscess measuring 6.0 x 4.2 cm located in the left pelvis. Baseline moderate sigmoid colonic diverticulosis with acute diverticulitis in the mid sigmoid segment. 2. Mild intrahepatic biliary dilatation. Moderate extrahepatic biliary dilatation, with CBD measuring up to 1.3 cm in diameter. No appreciable choledocholithiasis. 3. Multiple small cystic lesions scattered throughout the pancreatic body, possibly contiguous with the cystic duct, for example measuring 1.3 x 1.5 cm in the midbody. At the pancreatic head, note made of lobulated cystic lesion measuring 2.0 x 2.1 cm axial. These may represent IPMNs. A mucinous neoplasm is not excluded of the pancreatic head. Recommend follow-up MRI/MRCP with contrast for complete evaluation. 4. Nonspecific mild heterogeneity of the left gluteus jameson musculature. No distinct mass or drainable fluid collection. May represent infectious or inflammatory myositis. Recommend correlation. 5. Trace bilateral pleural effusions, [id number]. Mild overlying passive atelectasis. 6. Decompressed gallbladder with mild wall thickening. No distinct calculi or inflammatory change. Plan -N.p.o. -IV fluids -General Surgery consulted - Albumin - IV fluids -Continue vancomycin -Broaden anaerobic coverage to Zosyn -Serial abdominal exams -Morphine for pain control -Zofran for nausea -Will be transferred to [facility] for IR drainage of pelvic abscess Staphylococcus species in 1 of 4 blood cultures -Showing Staphylococcus hominis - Likely contamination - Will follow repeat blood cultures, currently so far no growth - Continue vancomycin Mild intrahepatic biliary dilatation. Moderate extrahepatic biliary dilatation, with CBD measuring up to 1.3 cm in diameter. No appreciable choledocholithiasis. Ultrasound abdomen US/US abdomen complete* [id number] IMPRESSION: 1. No intrahepatic biliary dilatation. Common bile duct is mildly dilated (9 mm). No appreciable choledocholithiasis. A component may be due to patient's age. According to clinical discretion, consider MRI/MRCP. 2. Mildly dilated gallbladder, containing sludge. No distinct cholelithiasis or sonographic evidence of cholecystitis. - AST within normal limits, ALT within normal limits, bilirubin within normal limits - Alk phos 115 - Monitor Multiple small cystic lesions scattered throughout the pancreatic body, possibly contiguous with the cystic duct, for example measuring 1.3 x 1.5 cm in the midbody. At the pancreatic head, note made of lobulated cystic lesion measuring 2.0 x 2.1 cm axial. These may represent IPMNs. A mucinous neoplasm is not excluded of the pancreatic head. - Will need a MRCP as outpatient Acute on chronic anemia - Hemoglobin 8.3 - Ferritin 757, iron 16 - Could be early iron deficiency anemia - Monitor hemoglobin - Repeat at 6 PM - Protonix, Carafate Altered mental status, weakness, leukocytosis, likely secondary to above, resolved - Neurochecks - NIH stroke scale - Aspiration precautions - Seizure precautions - Blood cultures -Urinalysis - Full code - Lovenox for DVT prophylaxis - Zofran for nausea STEMI Cardiac echo CONCLUSIONS LV systolic function is normal with EF of 60-65% Grade 1 diastolic dysfunction Mild mitral regurgitation - Cardiogram did not show obstructive CAD - Medical managed - Plavix currently on hold, last dose of Plavix was loading dose for her NSTEMI 03/22/2025 PDMP PDMP Reviewed: Last Reviewed 03/23/25 17:14 by Newton Ordoñez MD Attestations 2 Medical Necessity Statement*: Patient requires hospitalization, for perforated diverticulitis, requiring transfer to tertiary level center for IR intervention Diagnoses Weakness R53.1 Macrocytic anemia D53.9 Polymyalgia rheumatica M35.3 Elevated white blood cell count D72.829 Delirium R41.0 Altered mental status type: delirium
--- NOTE | 2025-03-27 10:33 | P.TS_ITS ---
Transfer Summary Providers Date of Admission: 03/23/25 10:01 Date of Discharge/Transfer: 03/27/25 Attending Provider at Admission: Anatoliy Peña M.D Attending Provider at Transfer: Anatoliy Peña M.D Primary Care Provider: Sudheer Canchola DO Transfer Plans: Anticipated date of transfer: 03/27/25 . Diagnoses at Discharge Discharge Diagnosis (1) Weakness: Status: Acute (2) Macrocytic anemia: Status: Acute (3) Polymyalgia rheumatica: Status: Acute (4) Elevated white blood cell count: Status: Acute (5) Altered mental status: Status: Resolved Qualifiers: Altered mental status type: delirium Qualified Code(s): R41.0 - Disorientation, unspecified Reason for Visit Reason for Visit weakness Hospital Course Hospital Course This is a 82-year-old female with a history of restless leg syndrome, neuropathy of bilateral feet, cystic liver disease, chronic narcotic use, degenerative disc disease, who presents to [facility] due to weakness, fatigue, poor appetite, nausea, Patient was a STEMI alert on admission, EKG showed ST elevations in inferior leads, initial troponin 74, creatinine 1.1, underwent coronary angiography without findings of obstructive CAD, cardiac echo showed 60 to 65%, Plavix has been on hold since 03/22/2025 when she received a loading dose, no recurrent chest pain during her hospitalization Patient was found to have acute sigmoid diverticulitis with perforation -She was initially medically managed with broad-spectrum antibiotic therapy, vancomycin, Zosyn, IV fluids, bowel rest, general surgery consulted -White blood cell count trended down to 8.72, no significant fevers, abdominal exam benign, overall clinically improving Acute sigmoid diverticulitis, with perforation CT scan abdomen pelvis IMPRESSION: 1. Findings suspicious for acute sigmoid diverticulitis with a possible focal contained perforation, including a mildly complex gas and fluid collection along the course of the sigmoid colon. 2. Additional ancillary findings as above are overall similar to prior. Repeat CT abomen and pelvis scan 03/27/2025 However repeat CAT scan 03/27/[address]/CT abdomen pelvis w con* [id number] IMPRESSION: 1. Mid sigmoid colonic perforation and abscess measuring 6.0 x 4.2 cm located in the left pelvis. Baseline moderate sigmoid colonic diverticulosis with acute diverticulitis in the mid sigmoid segment. 2. Mild intrahepatic biliary dilatation. Moderate extrahepatic biliary dilatation, with CBD measuring up to 1.3 cm in diameter. No appreciable choledocholithiasis. 3. Multiple small cystic lesions scattered throughout the pancreatic body, possibly contiguous with the cystic duct, for example measuring 1.3 x 1.5 cm in the midbody. At the pancreatic head, note made of lobulated cystic lesion measuring 2.0 x 2.1 cm axial. These may represent IPMNs. A mucinous neoplasm is not excluded of the pancreatic head. Recommend follow-up MRI/MRCP with contrast for complete evaluation. 4. Nonspecific mild heterogeneity of the left gluteus jameson musculature. No distinct mass or drainable fluid collection. May represent infectious or inflammatory myositis. Recommend correlation. 5. Trace bilateral pleural effusions, [id number]-right. Mild overlying passive atelectasis. 6. Decompressed gallbladder with mild wall thickening. No distinct calculi or inflammatory change. Plan -N.p.o. -IV fluids -General Surgery consulted - Albumin - IV fluids -Continue vancomycin - Zosyn -Serial abdominal exams -Morphine for pain control -Zofran for nausea -Due to findings of pelvic abscess measuring 6 x 4.2 cm after detailed discussion with general surgery, and then patient/son, decision was made after discussing the risks and benefits to transfer to tertiary level center for IR drainage -Will be transferred to [facility] for IR drainage of pelvic abscess Staphylococcus species in 1 of 4 blood cultures -Showing Staphylococcus hominis - Likely contamination - Will follow repeat blood cultures, currently so far no growth - Continue vancomycin Mild intrahepatic biliary dilatation. Moderate extrahepatic biliary dilatation, with CBD measuring up to 1.3 cm in diameter. No appreciable choledocholithiasis. Ultrasound abdomen US/US abdomen complete* [id number] IMPRESSION: 1. No intrahepatic biliary dilatation. Common bile duct is mildly dilated (9 mm). No appreciable choledocholithiasis. A component may be due to patient's age. According to clinical discretion, consider MRI/MRCP. 2. Mildly dilated gallbladder, containing sludge. No distinct cholelithiasis or sonographic evidence of cholecystitis. - AST within normal limits, ALT within normal limits, bilirubin within normal limits - Alk phos 115 - Monitor Multiple small cystic lesions scattered throughout the pancreatic body, possibly contiguous with the cystic duct, for example measuring 1.3 x 1.5 cm in the midbody. At the pancreatic head, note made of lobulated cystic lesion measuring 2.0 x 2.1 cm axial. These may represent IPMNs. A mucinous neoplasm is not excluded of the pancreatic head. - Will need a MRCP as outpatient Acute on chronic anemia - Hemoglobin 8.3 - Ferritin 757, iron 16 - Could be early iron deficiency anemia - Monitor hemoglobin - Repeat at 6 PM - Protonix, Carafate Altered mental status, weakness, leukocytosis, likely secondary to above, resolved - Neurochecks - NIH stroke scale - Aspiration precautions - Seizure precautions - Blood cultures -Urinalysis - Full code - Lovenox for DVT prophylaxis - Zofran for nausea STEMI Cardiac echo CONCLUSIONS LV systolic function is normal with EF of 60-65% Grade 1 diastolic dysfunction Mild mitral regurgitation - Cardiogram did not show obstructive CAD - Medical managed - Plavix currently on hold, last dose of Plavix was loading dose for her NSTEMI 03/22/2025 Bilateral extremity pain, restless leg syndrome - DP PT pulses palpable, cap refill greater than 3 seconds, no mottling, no calf pain, calf swelling - Venous ultrasound negative for DVT - Will monitor Physical Exam Const: COMMON NORMALS: no acute distress and patient oriented x3 Resp: COMMON NORMALS: normal respiratory effort, No retractions, No use of accessory muscles and clear to auscultation bilaterally AUSCULTATION: clear to auscultation bilaterally Cardio: COMMON NORMALS: regular rate, regular rhythm, S1 normal heart sound present and S2 normal heart sound present RATE: regular rate RHYTHM: regular rhythm HEART SOUNDS: S1 normal heart sound present and S2 normal heart sound present GI: COMMON NORMALS: Normal to inspection, nondistended, normoactive bowel sounds present and non-tender Extremity: COMMON NORMALS: no pedal edema NARRATIVE EXTREMITY EXAM: DP PT pulses palpable, cap refill greater than 3 seconds, no mottling, no overlying skin changes Neuro: COMMON NORMALS: patient oriented x3 Psych: COMMON NORMALS: mental status grossly normal Urinary Catheter Management: Rollins: Cath Placed During This Visit: yes Reason for Continuing Indwelling Catheter: Accurate Measurement of Urinary Output in Critically Ill Patients Urinary Catheter Date of Insertion: 03/22/25 Urinary Catheter Time of Insertion: 23:00 TS Data Studies Completed and Pending Pending at discharge Category Date Time Status [employer] request for service Stat Exams 03/22/25 17:31 Taken Blood Culture Stat Lab 03/22/25 20:25 Results Blood Culture Stat Lab 03/23/25 22:17 Results CBC Auto Diff [Complete Blood Count w/Auto] Routine Lab 03/27/25 18:00 Ordered CDIFF [C.Diff PCR (Lab)] Routine Lab 03/23/25 15:00 Uncollected Herpes Simplex Virus DNA Stat Lab 03/23/25 03:59 Received Lactic Sepsis W/Reflex Stat Lab 03/27/25 10:27 Ordered Completed Studies During Hospitalization Category Date Time Status CT abdomen pelvis w con* [id number] Routine Cat Scan 03/27/25 06:[address] chest abdomen pelvis [[place] [id number] Cat Scan 03/23/25 15:00 Completed ] Routine CT head wo con* [id number] Stat Cat Scan 03/22/25 16:58 Completed XR chest 1V portable [id number] Stat Exams 03/22/25 16:58 [place] [id number] Routine Ultrasound 03/23/25 15:00 Completed CV. echo complete* [id number] Routine Ultrasound 03/23/25 09:45 Completed US abdomen complete* [id number] Routine Ultrasound 03/23/25 21:49 Completed Laboratory Last Values WBC 8.72 10^3/uL (3.29-11.43) 03/27/25 02:57 RBC 2.77 10^6/uL (3.85-5.65) L 03/27/25 02:57 Hgb 8.30 g/dL (11.27-16.99) L 03/27/25 02:57 Hct 27.9 % (36-47) L 03/27/25 02:57 MCV 100.7 fl (85-98) H 03/27/25 02:57 MCH 30.0 pg (27-33) 03/27/25 02:57 MCHC 29.7 g/dL (30-55) L D 03/27/25 02:57 RDW 14.1 % (12.1-15.1) 03/27/25 02:57 Plt Count 354 10^3/cmm (157-399) 03/27/25 02:57 MPV 10.6 fL (7.4-10.4) H 03/27/25 02:57 Neut % (Auto) 72.4 % 03/27/25 02:57 Lymph % (Auto) 17.4 % 03/27/25 02:57 [place] % (Auto) 7.7 % 03/27/25 02:57 Eos % (Auto) 1.8 % 03/27/25 02:57 Baso % (Auto) 0.1 % 03/27/25 02:57 Neut # (Auto) 6.31 10^3/uL (1.8-7.7) 03/27/25 02:57 Lymph # (Auto) 1.5 10^3/uL (0.8-4.8) 03/27/25 02:57 [place] # (Auto) 0.7 10^3/uL (0.2-0.9) 03/27/25 02:57 Eos # (Auto) 0.2 10^3/uL (0.0-0.8) 03/27/25 02:57 Baso # (Auto) 0.0 10^3/uL (0.0-0.1) 03/27/25 02:57 Nucleated RBC % (auto) 0 % 03/27/25 02:57 Total Counted 100 (0-100) 03/23/25 03:59 Atypical Lymphs % 0.0 % (0-5) 03/23/25 03:59 Absolute Neutrophils 14.9 10^3/cmm (1.4-6.5) H 03/23/25 03:59 Segmented Neutrophils 78 % 03/23/25 03:59 Band Neutrophils 4.0 % 03/23/25 03:59 Absolute Lymphocytes 1.8 10^3/cmm (1.2-3.4) 03/23/25 03:59 Lymphocytes (Manual) 10 % 03/23/25 03:59 Monocytes (Manual) 8.0 % 03/23/25 03:59 Absolute Monocytes 1.5 10^3/cmm (0.1-0.6) H 03/23/25 03:59 Eosinophils (Manual) 0 % 03/23/25 03:59 Absolute Eosinophils 0.0 10^3/cmm (0.0-0.7) 03/23/25 03:59 Basophils (Manual) 0.0 % 03/23/25 03:59 Absolute Basophils 0.0 10^3/cmm (0.0-0.2) 03/23/25 03:59 Nucleated RBCs # 0.0 /100WBC 03/27/25 02:57 Platelet Estimate Normal (Normal) 03/23/25 03:59 ESR 24 mm/hr (0-15) H 03/23/25 03:59 PT 13.60 SECONDS (12.1-14.9) 03/22/25 17:11 INR 0.97 (0.8-1.2) 03/22/25 17:11 Specimen Type Arterial 03/22/25 17:46 Sample Site Radial, left 03/22/25 17:46 ABG pH 7.44 (7.35-7.45) 03/22/25 17:46 ABG pCO2 35.0 mmHg (35-45) 03/22/25 17:46 ABG pO2 77.7 mmHg (80.0-100.0) L 03/22/25 17:46 ABG PO2/FiO2 Ratio 370 03/22/25 17:46 ABG HCO3 23.6 mmol/L (22-26) 03/22/25 17:46 ABG Base Excess -0.3 mmol/L (-2.0-2.0) 03/22/25 17:46 Carlos Test Pos 03/22/25 17:46 Hematocrit 31.9 % (37-47) L 03/22/25 17:46 O2 Delivery Device Room air 03/22/25 17:46 FiO2 21.0 % 03/22/25 17:46 Carburizer ID Cak 03/22/25 17:46 Sodium 140 mmol/L (136-145) 03/27/25 02:57 Potassium 3.5 mmol/L (3.5-5.1) 03/27/25 02:57 Chloride 108 mmol/L (98-107) H 03/27/25 02:57 Carbon Dioxide 24 mmol/L (22-29) 03/27/25 02:57 Anion Gap 11.5 (5-19) 03/27/25 02:57 BUN 11 mg/dL (8-23) 03/27/25 02:57 Creatinine 0.9 mg/dL (0.5-0.9) 03/27/25 02:57 GFR Calculation Not Reportable 03/27/25 02:57 Glucose 118 mg/dL (65-115) H 03/27/25 02:57 POC Glucose 179 mg/dL (70-110) H 03/27/25 10:19 Calculated Osmolality 290 mOsm/kg (285-295) 03/27/25 02:57 Lactic Acid 0.6 mmol/L (0.5-2.2) 03/24/25 08:57 Calcium 8.8 mg/dL (8.5-10.5) 03/27/25 02:57 Phosphorus 2.2 mg/dL (2.5-4.5) L 03/27/25 02:57 Magnesium 1.9 mg/dL (1.7-2.3) 03/27/25 02:57 Iron 16 ug/dL (37-145) L 03/23/25 03:59 TIBC 136 mcg/dl 03/23/25 03:59 % Saturation 11.7 % (20-50) L 03/23/25 03:59 Unsat Iron Binding 120 ug/dL (112-347) 03/23/25 03:59 Ferritin 757 ng/mL (15-150) H 03/23/25 03:59 Total Bilirubin 0.4 mg/dL (0.15-1.2) 03/27/25 02:57 AST 17 U/L (0-32) 03/27/25 02:57 ALT 30 U/L (0-33) 03/27/25 02:57 Alkaline Phosphatase 115 U/L (35-105) H 03/27/25 02:57 Creatine Kinase 112 U/L (26-192) 03/23/25 03:59 Troponin T Baseline 74 ng/L (0-10) H 03/22/25 17:11 Troponin T 120 Minute 75.12 ng/L (0-10) H 03/22/25 19:53 Delta Troponin T 1.12 ABS# (0-10) 03/22/25 19:53 Troponin T Hi Sens 6Hr 57.85 ng/L (0-10) H 03/22/25 23:17 Troponin T Hi Sens 6Hr Delta -16.15 ng/L (0-12) L 03/22/25 23:17 C-Reactive Protein 82.7 mg/L (0.0-4.9) H 03/24/25 02:55 Total Protein 4.5 g/dL (6.6-8.7) L 03/27/25 02:57 Albumin 2.1 g/dL (3.5-5.2) L 03/27/25 02:57 Globulin 2.4 g/dL (1.3-4.6) 03/27/25 02:57 Lipase 67 U/L (13-60) H 03/23/25 03:59 Vitamin B12 > 2000 pg/mL (232-1245) H 03/23/25 03:59 Folate 15.5 ng/mL (4.8-37.3) 03/23/25 03:59 Procalcitonin 0.28 ng/mL (0-0.5) 03/24/25 02:55 TSH 1.02 uIU/mL (0.27-4.20) 03/23/25 03:59 Random Cortisol 15.81 ug/dL (2.47-19.5) 03/23/25 03:59 Urine Color Dark yellow (Yellow) A 03/23/25 00:00 Urine Appearance Clear (CLEAR) 03/23/25 00:00 Urine pH 5.5 (5-7) 03/23/25 00:00 Ur Specific [place] 1.072 (1.005-1.030) H 03/23/25 00:00 Urine Protein 1+ (Negative) A 03/23/25 00:00 Urine Glucose (UA) Negative (Normal) 03/23/25 00:00 Urine Ketones Negative (Negative) 03/23/25 00:00 Urine Blood Negative (Negative) 03/23/25 00:00 Urine Nitrate Negative (Negative) 03/23/25 00:00 Urine Bilirubin Negative (Negative) 03/23/25 00:00 Urine Urobilinogen 1.0 mg/dL (Negative) 03/23/25 00:00 Ur Leukocyte Esterase Negative (Negative) 03/23/25 00:00 Urine RBC 0-2 /hpf (0-2) 03/23/25 00:00 Urine WBC 6-10 /hpf (0-5) 03/23/25 00:00 Ur Squamous Epith Cells 6-10 /hpf (0-5) 03/23/25 00:00 Calcium Oxalate Crystal 5-10 /hpf H 03/23/25 00:00 Amorphous Sediment Not Reportable 03/23/25 00:00 Urine Bacteria None seen /hpf (NONE) 03/23/25 00:00 Hyaline Casts 16.12 /lpf 03/23/25 00:00 Vancomycin Trough 7.6 ug/mL (10-15) L 03/26/25 15:16 HSV I IgG Ab 54.70 index H 03/23/25 03:59 HSV II IgG <0.90 index 03/23/25 03:59 Radiology Impressions Chest X-Ray 03/22/25 16:58 IMPRESSION: Mild atelectasis/opacities at the left lung base. Head CT 03/22/25 16:58 IMPRESSION: 1. No acute intracranial findings. 2. Focal soft tissue swelling or lesion along the left frontal scalp. Please correlate clinically. Chest/Abdomen/Pelvis CT 03/23/25 15:00 IMPRESSION: 1. No acute findings in the chest. 2. Focal pleural thickening/nodularity along the right lateral lung is nonspecific and could be atelectatic in nature. Underlying neoplasm considered less likely but not entirely excluded. Consider follow-up CT chest in 3 months versus nonemergent PET-CT for further evaluation. 3. Asymmetric soft tissue in the outer aspect of the right breast. Recommend correlation with dedicated breast imaging, including diagnostic mammogram to exclude neoplasm. Imaging features of anemia. IMPRESSION: 1. Findings suspicious for acute sigmoid diverticulitis with a possible focal contained perforation, including a mildly complex gas and fluid collection along the course of the sigmoid colon. 2. Additional ancillary findings as above are overall similar to prior. Abdomen Ultrasound 03/23/25 21:49 IMPRESSION: 1. No intrahepatic biliary dilatation. Common bile duct is mildly dilated (9 mm). No appreciable choledocholithiasis. A component may be due to patient's age. According to clinical discretion, consider MRI/MRCP. 2. Mildly dilated gallbladder, containing sludge. No distinct cholelithiasis or sonographic evidence of cholecystitis. Abdomen/Pelvis CT 03/27/25 06:00 IMPRESSION: 1. Mid sigmoid colonic perforation and abscess measuring 6.0 x 4.2 cm located in the left pelvis. Baseline moderate sigmoid colonic diverticulosis with acute diverticulitis in the mid sigmoid segment. 2. Mild intrahepatic biliary dilatation. Moderate extrahepatic biliary dilatation, with CBD measuring up to 1.3 cm in diameter. No appreciable choledocholithiasis. 3. Multiple small cystic lesions scattered throughout the pancreatic body, possibly contiguous with the cystic duct, for example measuring 1.3 x 1.5 cm in the midbody. At the pancreatic head, note made of lobulated cystic lesion measuring 2.0 x 2.1 cm axial. These may represent IPMNs. A mucinous neoplasm is not excluded of the pancreatic head. Recommend follow-up MRI/MRCP with contrast for complete evaluation. 4. Nonspecific mild heterogeneity of the left gluteus jameson musculature. No distinct mass or drainable fluid collection. May represent infectious or inflammatory myositis. Recommend correlation. 5. Trace bilateral pleural effusions, [id number]-right. Mild overlying passive atelectasis. 6. Decompressed gallbladder with mild wall thickening. No distinct calculi or inflammatory change. COMMENTS: Consistent with the [employer]'s Incidental Findings Committee white paper (J Am Luz Elena Radiol 2018): Any incidental renal lesion less than 1 cm or classified as too small to characterize, or any incidental cystic renal lesion characterized as simple-appearing, is likely benign. No follow-up imaging is recommended for these lesions per consensus recommendations based on imaging criteria. ADDENDUM: 03/27/25 0829 COMMENT: THIS REPORT CONTAINS FINDINGS THAT MAY BE CRITICAL TO PATIENT CARE. The exam findings were verbally communicated by me to PELON HUMPHRIES via telephone conference at 8:28 AM CDT on 03/27/2025. The findings were acknowledged and understood. Recent Clincial Data Last Vital Signs Temp 98.6 F 03/27/25 08:00 Pulse 92 03/27/25 08:00 Resp 26 H 03/27/25 09:46 BP 84/65 03/27/25 08:00 Pulse Ox 96 03/27/25 00:00 O2 Del Method Room Air 03/27/25 05:38 Vital Signs Temp Pulse Resp BP Pulse Ox O2 Del Method 03/27/25 09:46 26 H 03/27/25 08:00 98.6 F 92 18 84/65 03/27/25 06:28 20 H 03/27/25 05:38 81 22 H 103/56 Room Air 03/27/25 00:00 97.6 F 77 26 H 97/54 96 Room Air Intake & Output/Weight 07/0203/26/25 03/27/25 03/28/25 06:59 06:59 06:59 06:59 Intake Total 1348.75 / 1348.75 1361.667 / 6586.256 6803.667 / 1786.667 300 / 300 Output Total 550 / 550 500 / 500 375 / 375 Balance 798.75 / 798.75 861.667 / 765.490 6225.667 / 1411.667 300 / 300 Weight 67.812 kg 69.218 kg 67.585 kg Vitals Last Vital Signs Temp 98.6 F 03/27/25 08:00 Pulse 92 03/27/25 08:00 Resp 26 H 03/27/25 09:46 BP 84/65 03/27/25 08:00 Pulse Ox 96 03/27/25 00:00 O2 Del Method Room Air 03/27/25 05:38 TS Medications Medications Acetaminophen (Acetaminophen 325 Mg Tablet) 650 mg PO Q6H PRN PRN Reason: Mild/Mod Pain Or Temp >/= 101 Last Admin: 03/26/25 01:07 Dose: 650 mg Enoxaparin Sodium (Enoxaparin 40 Mg/0.4 Ml Syringe) 40 mg SUBCUT Q24H [facility]ARLENE Last Admin: 03/26/25 20:55 Dose: 40 mg Glucagon (Glucagon 1 Mg/Ml Kit 1 Ml) 1 mg IM ONCE PRN; Protocol PRN Reason: Adult Acute Hypoglycemia Nursing Prot. Piperacillin Sod/Tazobactam (Sod 3.375 gm/ Sodium Chloride) 50 mls @ 12.5 mls/hr IV Q8H [facility]ARLENE; Protocol Last Admin: 03/27/25 09:40 Dose: 12.5 mls/hr Sodium Chloride (Sodium Chloride 0.9%) 1,000 mls @ 75 mls/hr IV .[id number] KARLENE Last Infusion: 03/27/25 06:00 Dose: 0 mls/hr Dextrose (D5w) 500 mls @ 0 mls/hr IV ONCE PRN; Protocol PRN Reason: Adult Acute Hypoglycemia Prot Dextrose (D10w) 125 mls @ 750 mls/hr IV PRN PRN; Protocol PRN Reason: Adult Acute Hypoglycemia Nursing Protocol Dextrose (D10w) 250 mls @ 1,000 mls/hr IV PRN PRN; Protocol PRN Reason: Adult Acute Hypoglycemia Nursing Protocol Vancomycin HCl 750 mg/ Sodium (Chloride) 250 mls @ 250 mls/hr IV Q12H [facility] Last Infusion: 03/27/25 07:47 Dose: Infused Potassium Phosphate 40 meq/ (Sodium Chloride) 109.0909 mls @ 27.25 mls/hr IV ONCE ONE Stop: 03/27/25 13:00 Last Admin: 03/27/25 09:40 Dose: 27.25 mls/hr Albumin Human (Albumin) 37.5 gm in 150 mls @ 60 mls/hr IV ONCE ONE Stop: 03/27/25 11:29 Last Admin: 03/27/25 09:40 Dose: 60 mls/hr Metoclopramide HCl (Metoclopramide 5 Mg/Ml Sdv 2 Ml) 5 mg IVP Q6H PRN PRN Reason: NAUSEA AND VOMITING Morphine Sulfate (Morphine 4 Mg/Ml Sdv 1 Ml) 2 mg IVP Q4H PRN PRN Reason: SEVERE PAIN Last Admin: 03/27/25 09:46 Dose: 2 mg Ondansetron HCl (Ondansetron 2 Mg/Ml Sdv 2 Ml) 4 mg IVP Q4H PRN PRN Reason: NAUSEA AND VOMITING Last Admin: 03/25/25 05:59 Dose: 4 mg Pantoprazole Sodium (Pantoprazole 40 Mg Sdv) 40 mg IVP Q24H [facility] Last Admin: 03/27/25 09:39 Dose: 40 mg Prednisone (Prednisone 10 Mg Tablet) 25 mg PO DAILY [facility] Last Admin: 03/27/25 09:38 Dose: 25 mg Discontinued Medications Aspirin (Aspirin 81 Mg Chew Tablet) 324 mg PO NOW ONE Stop: 03/22/25 17:27 Last Admin: 03/22/25 17:33 Dose: 324 mg Aspirin (Aspirin 325 Mg Tablet) 325 mg PO ONCE ONE Stop: 03/22/25 17:31 Last Admin: 03/22/25 17:32 Dose: Not Given Ceftriaxone Sodium (Ceftriaxone 1,000 Mg Sdv) 1,000 mg IVP ONCE ONE; Protocol Stop: 03/22/25 17:56 Last Admin: 03/22/25 19:37 Dose: 1,000 mg Ceftriaxone Sodium (Ceftriaxone 1,000 Mg Sdv) 1,000 mg IVP Q24H [facility]; Protocol Last Admin: 03/23/25 20:52 Dose: 1,000 mg Clopidogrel Bisulfate (Clopidogrel 300 Mg Tablet) 600 mg PO ONCE ONE Stop: 03/22/25 17:31 Last Admin: 03/22/25 17:33 Dose: 600 mg Fentanyl (Fentanyl 50 Mcg/Ml Inj 2ml) Confirm Administered Dose 100 mcg .ROUTE .STK-MED ONE Stop: 03/22/25 18:23 Haloperidol Lactate (Haloperidol Inj 5 Mg/Ml Inj 1 Ml) 1 mg IM NOW ONE Stop: 03/23/25 18:44 Last Admin: 03/24/25 07:42 Dose: Not Given Heparin Sodium (Porcine) (Heparin 5,000 Unit/Ml Inj 1 Ml) 4,000 unit IVP ONCE ONE Stop: 03/22/25 17:43 Last Admin: 03/22/25 17:55 Dose: 4,000 unit Heparin Sodium (Porcine) (Heparin 5,000 Unit/Ml Inj 1 Ml) Confirm Administered Dose 5,000 unit .ROUTE .STK-MED ONE Stop: 03/22/25 18:01 Sodium Chloride (Sodium Chloride 0.9%) 1,000 mls @ 999 mls/hr IV .Q1H1M ONE Stop: 03/22/25 17:58 Last Infusion: 03/22/25 19:49 Dose: Infused Azithromycin 500 mg/ Sodium (Chloride) 250 mls @ 250 mls/hr IV ONCE ONE; Protocol Stop: 03/22/25 18:54 Last Infusion: 03/22/25 21:20 Dose: Infused Lidocaine HCl (Xylocaine) Confirm Administered Dose 20 mls @ as directed .ROUTE .STK-MED ONE Stop: 03/22/25 18:04 Sodium Chloride (Sodium Chloride 0.9%) Confirm Administered Dose 1,000 mls @ as directed .ROUTE .STK-MED ONE Stop: 03/22/25 18:21 Sodium Chloride (Sodium Chloride 0.9%) 1,000 mls @ 75 mls/hr IV .[id number] [facility] Last Infusion: 03/22/25 21:21 Dose: Infused Lactated Ringer's (Lactated Ringers) 1,000 mls @ 125 mls/hr IV .Q8H [facility] Stop: 03/23/25 04:44 Last Infusion: 03/23/25 06:40 Dose: Infused Vancomycin HCl 1,000 mg/ (Sodium Chloride) 250 mls @ 250 mls/hr IV Q24H [facility] Last Infusion: 03/26/25 16:40 Dose: Infused Dextrose (D10w) 1,000 mls @ 100 mls/hr IV .Q10H [facility] Stop: 03/25/25 13:45 Last Infusion: 03/26/25 13:59 Dose: Infused Vancomycin HCl 750 mg/ Sodium (Chloride) 250 mls @ 250 mls/hr IV Q12H [facility] Iohexol (Iohexol 350 Mg/Ml 500 Ml Btl (Per Ml)) 0 ml IV ONCE ONE Stop: 03/27/25 07:46 Last Admin: 03/27/25 07:45 Dose: 100 ml Midazolam HCl (Midazolam 1 Mg/Ml Inj 2 Ml) Confirm Administered Dose 2 mg .ROUTE .STK-MED ONE Stop: 03/22/25 18:23 Nitroglycerin (Nitroglycerin 5 Mg/Ml Sdv 10 Ml) Confirm Administered Dose 50 mg .ROUTE .STK-MED ONE Stop: 03/22/25 18:05 Oxycodone HCl (Oxycodone 5 Mg Ir Tab/Cap) 5 mg PO Q4H PRN PRN Reason: MODERATE PAIN Last Admin: 03/23/25 18:29 Dose: 5 mg Prednisone (Prednisone 10 Mg Tablet) 25 mg PO DAILY PRN PRN Reason: ARTHRITIS PAIN Allergies No Known Allergies Allergy (Verified 02/24/25 09:28) Home Medications ibuprofen 200 mg tablet (Motrin IB) 200 mg PO BID PRN Pain 10/28/19 [History Confirmed 03/22/25] acyclovir 5 % topical ointment See Rx Instructions .Route .COMPLEX #15 grams 07/14/24 [Rx Confirmed 03/22/25] ferrous sulfate 325 mg (65 mg iron) tablet 325 mg PO DAILY #90 tabs 10/30/24 [Rx Confirmed 03/22/25] hydrocodone 10 mg-acetaminophen 325 mg tablet 1 tab PO BID PRN pain 1 day #1 tab 01/19/25 [Rx Confirmed 03/22/25] prednisone 10 mg tablet See Rx Instructions .Route .COMPLEX #90 tabs 02/24/25 [Rx Confirmed 03/22/25] wheeled walker, with brakes, seat #1 ea 02/24/25 [Rx Confirmed 03/22/25] sulfamethoxazole 800 mg-trimethoprim 160 mg tablet (Bactrim DS) 1 tab PO BID infection 7 days #14 tabs 02/26/25 [Rx Confirmed 03/22/25] pantoprazole 20 mg tablet,delayed release See Rx Instructions .Route .COMPLEX #60 tabs 03/03/25 [Rx Confirmed 03/22/25] clopidogrel 75 mg tablet 75 mg PO DAILY #90 tabs 03/04/25 [Rx Confirmed 03/22/25] Discharge Plan Discharge Patient Disposition: Home Health Service Condition: Stable Prescriptions: No Action ibuprofen [Motrin IB] 200 mg tablet 200 mg PO BID PRN (Reason: Pain) (DME) wheeled walker, with brakes, seat See Rx Instructions .Route .MEDSUPPLY Qty: 1 0RF Rx Instructions: As directed prednisone 10 mg tablet See Rx Instructions .ROUTE .COMPLEX Qty: 90 1RF Dose Instruction: TAKE 2&1/2 tABLETS BY MOUTH EVERY DAY FOR arthritis pain or inflammation Rx Instructions: TAKE 2&1/2 tABLETS BY MOUTH EVERY DAY FOR arthritis pain or inflammation hydrocodone-acetaminophen 10-325 mg tablet 1 tab PO BID PRN (Reason: pain) 1 Days Qty: 1 0RF acyclovir 5 % ointment See Rx Instructions .ROUTE .COMPLEX Qty: 15 3RF Dose Instruction: APPLY TO THE AFFECTED AREA(S) six times a DAY FOR COLD SORES FOR SEVEN DAYS Rx Instructions: APPLY TO THE AFFECTED AREA(S) six times a DAY FOR COLD SORES FOR SEVEN DAYS sulfamethoxazole-trimethoprim [Bactrim DS] 800-160 mg tablet 1 tab PO BID 7 Days Qty: 14 0RF pantoprazole 20 mg tablet,delayed release (DR/EC) See Rx Instructions .ROUTE .COMPLEX Qty: 60 11RF Dose Instruction: TAKE ONE TABLET BY MOUTH TWICE DAILY *take 30 minutes before breakfast and 30 minutes before dinner ON empty stomach* Rx Instructions: TAKE ONE TABLET BY MOUTH TWICE DAILY *take 30 minutes before breakfast and 30 minutes before dinner ON empty stomach* clopidogrel 75 mg tablet 75 mg PO DAILY Qty: 90 3RF ferrous sulfate 325 mg (65 mg iron) tablet 325 mg PO DAILY Qty: 90 0RF Referrals: [facility] ([facility]) [Outside] Britta Lemus NP [Nurse Practitioner, Cardiology] - 04/02/25 3:00 pm Sudheer Canchola DO [Primary Care Provider, Family Practice] - 03/30/25 12:40 pm Patient Instructions: Opioid Safety, Patient Portal & Dao Instructions Transfer Attestations Time Spent in Transfer Care: greater than 30 min Quality Metrics Clinical Quality Measures [ No reported AMI, CVA or VTE this stay] Coding Level of Care Code 95049 Total time (in minutes) for Discharge: 45 Diagnoses Weakness R53.1 Macrocytic anemia D53.9 Polymyalgia rheumatica M35.3 Elevated white blood cell count D72.829 Delirium R41.0 Altered mental status type: delirium
[2025-03-27 11:51] LABS: Lactic Sepsis W/Reflex 1.3 mmol/L (0.5-2.2)
--- NOTE | 2025-03-27 17:59 | PC.NURSE ---
Patient transferred to [facility]. Report called to Romy Jones RN. Patient taken by [facility]. Son at bedside prior to transport.
[2025-03-28 16:18] LABS: HSV 1 DNA Not Detected (Not Detected); HSV 2 DNA Not Detected (Not Detected)
== END 2025-03-27 17:49 | disposition short-term general hospital (02) | DRG 391 ==
LOC: ER 17:31 → CCL 17:38 → CSU 19:18
PROVIDERS: Family Medicine; Internal Medicine; Admitting Provider Internal Medicine; Emergency Provider Emergency Medicine; PCP Family Medicine; Visit Provider Internal Medicine
PROC: 4A023N7 Measurement of Cardiac Sampling and Pressure, Left Heart, Percutaneous Approach (ICD-10-PCS; principal; 2025-03-22 18:00)
DX: K57.20 Diverticulitis of large intestine with perforation and abscess without bleeding (principal); I21.3 ST elevation (STEMI) myocardial infarction of unspecified site; G93.40 Encephalopathy, unspecified; Q44.6 Cystic disease of liver; D53.9 Nutritional anemia, unspecified; M35.3 Polymyalgia rheumatica; G25.81 Restless legs syndrome; I25.10 Atherosclerotic heart disease of native coronary artery without angina pectoris; F03.90 Unspecified dementia, unspecified severity, without behavioral disturbance, psychotic disturbance, mood disturbance, and anxiety; R63.4 Abnormal weight loss; Z68.29 Body mass index [BMI] 29.0-29.9, adult; Z79.02 Long term (current) use of antithrombotics/antiplatelets; Z79.891 Long term (current) use of opiate analgesic; Z79.52 Long term (current) use of systemic steroids
CPT/HCPCS: 36415; 36416; 36600; 51702; 70450; 71045; 71250; 74176; 74177; 76700; 80048; 80053; 80202; 81001; 82533; 82550; 82607; 82728; 82746; 82803; 82962; 83540; 83550; 83605; 83690; 83735; 84100; 84145; 84443; 84484; 85007; 85025; 85027; 85610; 85651; 86140; 86695; 86696; 87040; 87077; 87150; 87186; 87205; 87530; 93005; 93306; 93458; 93970; 94664; 96365; 96372; 96375; 96376; 97110; 97116; 97162; 97167; 97530; 97535; 99152; 99285; A9270; C1760; C1769; C1887; C1894; G0269; G0378; J0456; J0696; J1644; J1650; J2250; J2270; J2405; J2470; J2543; J3010; J3370; J3490; J7030; J7050; J7120; J7512; J9999; P9047; Q9967

== ENCOUNTER 2025-04-03 19:57 | Emergency (ER) | payer MEDICARE, OTHER, SELFPAY ==
--- OUTSIDE RECORDS SUMMARY | 2025-03-27 18:59 | XMS_ITS | Encounter Summary ---
[facility] Organization [facility] Address [address] [place] [address] Care Team Providers Care Pitting Machine Operator Name Role Phone Unavailable Primary Care Provider Unavailabl e Reason for Referral * Eval and Treat (8-30 Days) - Open Specialty Diagnoses / Procedures Referred By Gerry velasco Referred To Contact Diagnoses Sigmoid diverticulitis Procedures OK OFFICE/OUTPATIENT ESTABLISHED MOD MDM 30 MIN OK OFFICE/OUTPATIENT NEW MODERATE MDM 45 MINUTES Tucker Marroquin MD [address] [place] [id number] Phone: tel: fax: Referral ID Status Reason Start Date Expiration Date Visits Re quested Visits Authorized [id number] Open 04/02/2025 04/02/2026 1 1 Reason for Visit * Auth/Cert (Routine) Specialty Diagnoses / Procedures Referred By Contaarti t Referred To Contact Internal Medicine Diagnoses ABDOMINAL PAIN Garth Azar MD [address] [place] [address] Phone: tel: fax: [facility]D Medical Tele[facility] [address] [place] [address] Phone: tel: fax: Referral ID Status Reason Start Date Expiration Date Visits Re quested Visits Authorized [id number] 1 1 Encounter Details Date Type Department Care Team (Latest Contact Info) Description 03/27/2025 6:59 PM CDT - 04/03/2025 12:02 AM CDT Hospital Encounter [facility] Tele[facility] [address] [place] [address] Garth Azar MD [address] [place] [address] Driss Dahl MD [address] [place] [address] Rico Galvan MD [address] [place] [address] Sigmoid diverticulitis Discharge Disposition: [facility](SNF) with Medicare Certification in Anticipation of [...] Galvan MD - 04/02/2025 11:10 AM CDT [facility] Hospitalist- Discharge Summary Javier Stubbs 85 y.o. female 1940 CSN: [id number] Date of Admission: 03/27/2025 Date of Discharge: [...] along the planned trajectory. Next, a 5 St Helenian Yueh needle/catheter combination was advanced using CT fluoroscopy as a guide to the target pelvic abscess and the needle was removed with the catheter remaining in place. Next, through the 5 St Helenian catheter a 035 wire was advanced into the targeted fluid collection. Over the wire 5 St Helenian catheter was removed and a 10 Fr [...] indwelling Rollins, GERD, anemia Patient presented to [facility] on 03/22 for generalized weakness, fatigue and [...] No primary care provider on file. via [employer] communication MEDICATION CHANGES (significant): Please see below [...] Kylah Galvan Refills: 0 naloxone 4 mg/spray Watkins, Non-Aerosol Commonly known as: NARCAN EMERGENCY USE [...] amoxicillin-clavulanate 875-125 mg tablet naloxone 4 mg/spray Watkins, Non-Aerosol saccharomyces boulardii 250 mg Capsule zinc [...] schedule your appointment. KEEP IN TOUCH WITH Reym Please consider using [email or web address] to communicate with Dr. Marroquin's office. Messages [...] and we can make those arrangements. The [employer] aurelio can also allow you to send inquiries directly to us as well as submit pictures of wounds, etc. Often the aurelio is the most efficient way to each our healthcare team. Ifyou don't have it already please search your aurelio store for [employer]. DIET Return to your usual diet. It [...] walk around! - Do not lift, push, pullman clerk 10 pounds May return to work/school when [...] office on the next business day at [phone]. There is a physician on-call after hours for emergency reasons only. DO NOT SMOKE AND AVOID SECOND-HAND SMOKE. Tobacco smoke can delay the healing process by decreasingthe oxygen supply to your wound, & may increase your risk of infection. Smoking irritates the breathing passages and increases the risk of pneumonia, bronchitis, asthma and risk of blood clots. [facility] Discharge Instructions Discharge & Transfer patient to: Name of Facility: [facility] Transfer care to Attending Provider at [facility] Symptoms/Diagnosis: Sigmoid diverticulitis Procedures Performed, if [...] DIET: DIET GENERAL Effective Now Wound Care: {[id number]::Not Applicable} Other Comments: See above for drain care instructions. Follow up in the Emergency Room For any recurrence or worsening of admission concerns, chest pain, palpitations, shortness of breath, coughing blood, nausea, vomiting, diarrhea, pain, fever, chills, bleeding, bloody or tarry stools, change to urine or bowel output, Contact hospitalist office [phone] for questions if patients are discharged by [facility] Hospitalistgroup. Contact [facility] Transfer Hub at [phone] if patient needs a direct admission. Tell [...] times daily. 04/02/2025 naloxone (NARCAN) 4 mg/spray Watkins, Non-Aerosol EMERGENCY USE ONLY: Administer 1 spray [...] 04/02/2025 11:41 AM CDT Report called to [facility]. * Rico Galvan MD - 04/01/2025 12:34 PM CDT Images from the original note were not included. Your life is our life's work [facility] Hospitalist/Hospital Medicine Progress Note LOS: 5 days Room/Bed: [facility]8/02 Patient name: Javier Stubbs Date of : 1940 HOSPITAL COURSE SUMMARY: Javier Stubbs, a 85 y.o. female with PMH significant for arthritis on high-dose steroids, lumbar radiculopathy, indwelling Rollins, GERD, anemia Patient presented to [facility] on 03/22 for generalized weakness, fatigue and [...] up: PCP, colorectal surgery Anticipated Disposition Location: [facility] Timeframe: Medically ready Criteria: Safe disposition available Patient's understanding of illness: Fair Primary family contact: Son at bedside MDM complexity: [] Mild [x] Moderate [] High Rico Galvan MD 04/01/2025, 12:34 PM * Rico Galvan MD - 03/31/2025 11:09 AM CDT Images from the original note were not included. Your life is our life's work [facility] Hospitalist/Hospital Medicine Progress Note LOS: 4 days Room/Bed: [facility]8/02 Patient name: Javier Stubbs Date of : 1940 HOSPITAL COURSE SUMMARY: Javier Stubbs, a 85 y.o. female with PMH significant for arthritis on high-dose steroids, lumbar radiculopathy, indwelling Rollins, GERD, anemia Patient presented to [facility] on 03/22 for generalized weakness, fatigue and [...] 70.1 kg (154 lb 8.7 oz) (03/30/25 8010) EXAM: General: Alert and oriented Neurologic: No [...] barely perceptible pit (no findings) (03/31/25899) Hand Business Support Associate: Unable to assess (03/31/25899) Percentage of Energy: < or equal to 75% for > or equal to 1 month (severe- chronic) (03/31/25899) Percentage of Weight Loss: Other (see comments) (unable to confirm) (03/31/25899) Malnutrition Decision Malnutrition Nutrition Diagnosis: Moderate protein-calorie malnutrition (03/31/25899) BMI BMI (Calculated): (!) 30.18 (03/30/25 6213) Malnutrition Recommendations Nutrition Interventions: Encourage adequate intake;Encourage [...] barely perceptible pit (no findings) (03/31/25899) Hand Business Support Associate: Unable to assess (03/31/25899) Percentage of Energy: < or equal to 75% for > or equal to 1 month (severe- chronic) (03/31/25899) Percentage of Weight Loss: Other (see comments) (unable to confirm) (03/31/25899) Estimated Needs: Estimated Energy Target: 3161-1646 (03/31/25899) Estimated Protein Target: 55-65 (03/31/25899) Estimated Fluid Target : 8392-7574 (03/31/25899) Nutrition Energy Formula: Calories per kilogram (03/31/25899) Weight Used for Formula: Adjusted body weight (51kg) (03/31/25899) Clinical Data: Height: 5' (152.4 cm) (03/27/251899) Murray body weight: 45.5 kg (100 lb 4.9 [...] 03/31/25 (03/31/25 0848) Stool Consistency - Reference Irion Stool Chart: unformed - (type 6/7) (03/31/25847) Bowel Sounds: All Quadrants: hypoactive (03/31/25 0310) Allergies: No Known Allergies No past medical history on file. Time spent:Consultation Time (mins): 25 mins (03/31/25 09) * Marla Das, Occupational Therapist - 03/30/2025 2:11 PM CDT [facility] - Therapy Services 3K Ph. Acute Occupational Therapy Evaluation 03/30/2025 Room: [address] [place] [address] Name: Javier Stubbs Age: 85 y.o. Patient [...] Daily Living Feeding: NT; anticipate independent for lhef-ja-ktrcf excursion Grooming: supervision seated in chair to [...] tasks, sequencing, command following, and problem solving. [facility] AM-PAC Daily Activity How much help [...] care and discharge recommendations shared with patient, manager critical care unit, and PT OT recommended DME and AE [...] Physical Therapist - 03/30/2025 1:06 PM CDT [facility] - Therapy Services 3K Ph. Acute Physical Therapy Evaluation 03/30/2025 Room: [address] [place] [address] Name: Javier Stubbs Age: 85 y.o. Date of : 1940 Insurance: Payor: MEDICARE / Plan: MEDICARE PART A AND B / Product Type: Medicare / Patient Class: Inpatient Onset of illness/injury or date of surgery: 03/27/2025 Subjective Information/History Subjective Information Provided By: Patient and Family Prior level of Function: Pt reports that she was modified independent HYDRATOR using her rollator or FWWswitching Patient does [...] Mobility: Supine to sit: moderate assistance with CLIENT ENGAGEMENT SPECIALIST to sit upright Sit to stand: maximal assistance for safety, balance and weakness Bed to chair: moderate assistance for increased time to perform, fatigue and safety Gait Training: Did not perform due to weakness Patient required verbal cues energy conservation Balance: Sitting: Normal Standing: Abnormal: mod A for transfer Vitals Patient on room air Vital signs stable throughout session [employer] AM-PAC Basic Mobility How much help [...] does seem to either be disoriented or [place] with questions Plan will include but is [...] assessment of and/or progress with physical function, [facility] Basic Mobility score, potential for improvement, [...] included. Your life is our life's work [facility] Hospitalist/Hospital Medicine Progress Note LOS: 3 days Room/Bed: 3258/02 Patient name: Javier Stubbs Date of : 1940 HOSPITAL COURSE SUMMARY: Javier Stubbs, a 85 y.o. female with PMH significant for arthritis on high-dose steroids, lumbar radiculopathy, indwelling Rollins, GERD, anemia Patient presented to [facility] on 03/22 for generalized weakness, fatigue and [...] included. Your life is our life's work [facility] Hospitalist/Hospital Medicine Progress Note LOS: 2 days Room/Bed: 3258/02 Patient name: Javier Stubbs Date of : 1940 HOSPITAL COURSE SUMMARY: Javier Stubbs, a 85 y.o. female with PMH significant for arthritis on high-dose steroids, lumbar radiculopathy, indwelling Rollins, GERD, anemia Patient presented to [facility] on 03/22 for generalized weakness, fatigue and [...] 0.45% infusion, , IV, intra-proc ONE time, Jas Gerard MD, Stopped at 03/28/25 1410 zinc [...] included. Your life is our life's work [facility] Hospitalist/[facility] Medicine Progress Note LOS: 1 day Room/Bed: 5581/02 Patient name: Javier Stubbs Date of : 1940 HOSPITAL COURSE SUMMARY: Javier Stubbs, a 85 y.o. female with PMH significant for arthritis on high-dose steroids, lumbar radiculopathy, indwelling Rollins, GERD, anemia Patient presented to [facility] on 03/22 for generalized weakness, fatigue and [...] included. Your life is our life's work [facility] Hospitalist-Driss Dahl MD History and physical- date of admission: 03/27/2025 Patient name: Javier Stubbs Date of : 1940 CSN number: [id number] PCP: No primary care provider on file. Chief Complaint: No chief complaint on file. History of present illness: Pt seen and examined at the bedside Javier Stubbs is a 85 y.o. female with PHM of lumbar radiculopathy, osteoarthritis who has been transferred from [facility] to [facility] medicine service on 03/27/2025 for interventional radiology evaluation for diverticulitis with abscess. Patient initially presented to [facility] on 03/22/2025 for generalized weakness, nausea and [...] daily. No prior history of CVA or UT. She reports that she was started on [...] record, Referring and communication with other health inspector health care facilities (not separately reported), Independently interpreting results and [...] NAME: Javier Stubbs DATE OF : 1940 [facility]: [id number] DATE: 03/27/2025 Room: [address] [place] [address] Admit Date: 03/27/2025 Hospital day: LOS: 0 [...] Complaint: abdominal pain History of Present Illness: Javeir Stubbs is a very pleasant 85 y.o. [...] 8 hours Driss Dahl MD 5,000 Units at 03/30/25 1236 cefTRIAXone (ROCEPHIN) 2,000 mg in sodium [...] along the planned trajectory. Next, a 5 St Helenian Yueh needle/catheter combination was advanced using CT fluoroscopy as a guide to the target pelvic abscess and the needle was removed with the catheter remaining in place. Next, through the 5 St Helenian catheter a 035 wire was advanced into the targeted fluid collection. Over the wire 5 St Helenian catheter was removed and a 10 Fr [...] note were not included. Skin/Wound/Ulcer/Pressure Injury Consult [facility] Patient Information Today's Date: 03/28/2025 Name: Javier Stubbs Age: 85 y.o. Date of : 1940 CSN: [id number] Date/time of admission: 03/27/2025 6:59 PM Hospital day: LOS: 1 day Room: [address] [place] [address] Physical Assessment Wound Details: Pressure Injury 03/28/25 Left: heel Deep Tissue Injury (Active) POA Pictures Taken (Date) 03/28/25 03/28/25 09 Pressure Injury Wound Shape round 03/28/25905 Pressure Injury Wound Base purple 03/28/25905 Periwound Area redness 03/28/25 09 Wound Edges attached 03/28/25 09 Wound Length-cm. 3.5 cm. 03/28/25905 Wound Width-cm. 3.5 cm. 03/28/25 09 Wound Depth-cm. 0 cm. 03/28/25905 Wound Surface Area (cm^2) 12.25 cm^2 03/28/25 09 Wound Volume (cm^3) 0 cm. 03/28/25905 Dressing Application silicone border dressing 03/28/25905 Pressure Injury 03/28/25 Right: heel Deep Tissue Injury (Active)POA Pictures Taken (Date) 03/28/25 03/28/25 09 Dressing Changed Date 03/28/25 03/28/25905 Pressure Injury Wound Shape irregular 03/28/25905 Pressure Injury Wound Base purple;red 03/28/25905 Periwound Area redness 03/28/25905 Wound Edges attached 03/28/25905 Wound Length-cm. 1 cm. 03/28/25905 Wound Width-cm. 1.8 cm. 03/28/25905 Wound Depth-cm. 0 cm. 03/28/25905 Wound Surface Area (cm^2) 1.8 cm^2 03/28/25905 Wound Volume (cm^3) 0 cm. [...] type: IsoTour Gel Change surface area to: Tanana NOTES: Focused skin assessment per consult order. [...] Emma Wilson RN Skin/Wound/Ostomy Please call hospital calender machine operator helper to have skin team paged with questions or needs. Cosigned by Rico Galvan MD at 03/30/2025 1:02 PM CDT * Curtis Cevallos RN - 03/27/2025 9:28 PM CDTAssociated Order(s): IP CONSULT TO IV TEAM VASCULAR ACCESS CONSULT PATIENT NAME: Javier Stubbs DATE OF : 1940 CSN: [id number] DATE: 03/27/2025 Room: [address] [place] [address] Admit Date: 03/27/2025 Hospital day: LOS: 0 [...] 25 mg, Oral, daily WITH breakfast, Driss Dahl, MD PLAN Insert PIV Curtis Cevallos RN [...] excoriation. * Care Plan - Laura Moreira BSW - 04/02/2025 10:16 AM CDT Senior Packaging Engineer Discharge Planning Expected Discharge Date Apr 02, 2025 Plan Discharge To: [facility] (04/02/25916) Plan Discharge To - Alternate: Home Health Services (04/02/25916) Patient likely to discharge to SNF at [facility] today per physician conversation. ADRI spokewith Sophie at the facility who reports they are ready for the patient today. ADRI scheduled EMS on will call while awaiting discharge orders, see below for report & transportation details. 04/02/25 0800 Discharge Planning Transportation Provider [facility] Transportation Contact Name William Transportation Provider Phone [phone] Final Discharge Arrangements Final Discharge Disposition SNF Care Facility Name [facility] Care Facility Contact Name [facility] [place] nursing staff Care Facility Phone Number P:[phone] F:[phone] Services Arranged For Discharge residential facility (SNF) Date Of Pick-Up 04/02/25 Time Of Pick-Up 1130 Copy of this transfer form will be sent with patient along with: AVS;Pertinent Medical Records ADD: ADRI contacted William at [facility] to update the patient will be ready at 1130 for transfer. Referrals Status: Facility Referrals - Accepted and Selected Destination - Admitted Since 03/27/2025 Service Provider Services Address Phone Fax Patient Preferred [facility] [address] [place] [address] [phone] -- Home Health/Hospice - Accepted Follow-up on Referrals Sent: Yes (04/02/25916) Preferred Pharmacy: [facility] [place] [address] Patient / Family Communications: Patient/Family Communications: Confirmed Discharge Plan (04/02/25916) Discharge Plan Agreed Upon: Patient;Family member (04/02/25916) Resources Provided: Resource List Given: Care facilities (04/01/25 121) Resource List Given To: Family member;Patient (04/01/251215) Information Given Concerning: Criteria for (skilled) nursing facility;Medicare benefits (04/01/251215) Transportation Plan: Has discharge transport been arranged?: Yes (04/02/25916) Transportation Provider: [facility] (04/02/25799) Transportation Contact Name: William (04/02/25799) Transportation Provider Phone: [phone] (04/02/25799) Date Of Pick-Up: 04/02/25 (04/02/25799) Time Of Pick-Up: (Will call) (04/02/25799) XIMENA Bruno * Care Plan - Thelma Son RN - 04/01/2025 6:04 PM CDT Shift Summary Discharge planning was discussed with the patient and family, with arrangements made for transfer to a snf facility. Pain in the gluteal area decreased [...] patient was prepared for discharge to a snf facility with pain management and safety measures [...] with arrangements made for transfer to a snf facility. Maintain skin integrity and/or promote wound healing by discharge: Pressure injuries on the left heel and right coccyx were treated with moisture barrier cream and silicone border dressing, with no change in wound condition noted. * Care Plan - Priscila Pineda, Occupational Therapist - 04/01/2025 2:47 PM CDT [facility] - Therapy Services 3K Ph. Acute Occupational Therapy Treatment 04/01/2025 Room: [address] [place] [address] Name: Javier Stubbs Age: 85 y.o. Patient [...] BUE, kyphotic and unable to fully stand [facility] Daily Activity How much help from [...] Moreira BSW - 04/01/2025 12:16 PM CDT Senior Packaging Engineer Discharge Planning Expected Discharge Date Apr 02, 2025 Plan Discharge To: [facility] (04/01/251215) Plan Discharge To - Alternate: Home Health Services (04/01/251215) Patient likely to discharge to SNF when medically stable & an accepting facility found. ADRI spoke with patient & son who are now agreeable to SNF placement. Family requesting referrals be [facility]. ADRI faxed referrals to 1. [facility], 2. [facility], & 3. [facility]. ADRI faxed referrals and is awaiting response. ADRI completed the DA-124 for the patient. The return code is [id number]. ADRI sent an email with link & code to attending physician for signature. ADD: ADRI received a call from [facility] [place] who reports they can accept the patient for tomorrow. Patient also accepted by [facility] although family requesting the higher rated facility. Referrals Status: Facility Referrals - Pending Home Health/Hospice - Accepted Follow-up on Referrals Sent: Yes (04/01/251215) Preferred Pharmacy: [facility], [place] - [address] Patient / Family Communications: Patient/Family Communications: Confirmed Discharge Plan (04/01/251215) Discharge Plan Agreed Upon: Patient;Family member (04/01/251215) Resources Provided: Resource List Given: Care facilities (04/01/251215) Resource List Given To: Family member;Patient (04/01/251215) Information Given Concerning: Criteria for (skilled) nursing facility;Medicare benefits (04/01/251215) XIMENA Bruno * Care Plan - Eli [...] bed were maintained. * Care Plan - Laura Moreira MICROECONOMICS PROFESSOR - 03/31/2025 4:24 PM CDT Senior Packaging Engineer Discharge Planning Expected Discharge Date Apr 01, 2025 Plan Discharge To: Home Health Services (03/28/251233) Plan Discharge To - Alternate: Home with family assist (03/28/251233) Family/Caregiver Assist Does the patient have family and/or a caregiver that is willing, able and available to assist if needed?: Yes (03/28/251233) Name and Relation: Son Demarcus (03/28/251233) Patient likely to discharge Home w/ [facility] services with [facility] when medically stable. ADRI spoke with Sophie at the [facility] who reports they can accept the patient although need an order & the name of PCP provider prior to scheduling services. ADRI left a voicemail message for patient'ssonDemarcus, requesting a return call. ADD: ADRI spoke with patient & patient son who report the PCP is Dr. Canchola with [facility]. ADRI contacted Sophie with the [facility] and updated on above. Referrals Status: Home Health/Hospice - Accepted and Selected Home Medical Care - Admitted Since 03/27/2025 Service Provider Services Address Phone Fax Patient Preferred [facility] [address] [place] [address] [phone] -- Preferred Pharmacy: [facility] [place], [place] - [address] Patient / [...] CDT Shift Summary Pain increased significantly by air tube releaser, requiring administration of HYDROcodone-acetaminophen. EKG 12-LEAD was [...] of the shift but increased significantly by air tube releaser, with the patient showing nonverbal indicators of [...] lives with son Demarcus, he is her internet marketing analyst. He reports her mobility as well as hermentation has been declining for the past few weeks. He says normally she gets around well with herseated walker. He believes the decline is d/t infection and is hopeful she can get back to where she was before. He would like for her to return home, with [facility] if recommended. He has no preference, referrals [...] Information Primary Emergency Contact: Demarcus Cline Address: [id number] [place] [address] Mobile Relation: Son Prescription coverage: yes Preferred Pharmacy verified: [facility] [place], [place] - [address] Insurance coverage verified: Payor: MEDICARE / Plan: MEDICARE PART A AND B / Product Type: Medicare/ Secondary Insurance:[facility] Medicaid Status: NA Has VA Benefits: no [...] [facility] Gen Spec Surg [address] [place] [address] Tucker Marroquin MD [address] [place] [address] Scheduled Referrals Name Type Priority Associated Diagnoses [...] - 145 mmol/L 04/02/2025 6:54 AM CDT [facility] POTASSIUM 4.0 3.5 - 5.1 mmol/L 04/02/2025 6:54 AM CDT [facility] CHLORIDE 109(H) 98 - 107 mmol/L 04/02/2025 6:54 AM CDT [facility] CO2 23 22 - 29 mmol/L 04/02/2025 6:54 AM CDT [facility] CALCIUM 10.0 8.8 - 10.2 mg/dL 04/02/2025 6:54 AM CDT [facility] BUN 9 8 - 23 mg/dL 04/02/2025 6:54 AM CDT [facility] HOSPITAL CREATININE 0.65 0.51 - 0.95 mg/dL 04/02/2025 6:54 AM CDT [facility] Comment:The GFR result is no t clinically significant on patients <18 or >70 years of age. GLUCOSE 82 74 - 99 mg/dL 04/02/2025 6:54 AM T [facility] TOTAL PROTEIN 5.2(L) 6.4 - 8.3 g/dL 04/02/2025 6:54 AM T [facility] ALBUMIN 2.7(L) 3.5 - 5.2 g/dL 04/02/2025 6:54 AM T [facility] BILIRUBIN TOTAL 0.5 0.0 - 1.0 mg/dL 04/02/2025 6:54 AM T [facility] ALKALINE PHOSPHATASE 160(H) 35 - 104 U/L 04/02/2025 6:54 AM T [facility] AST 14 10 - 35 U/L 04/02/2025 6:54 AM T [facility] ALT 19 <=35 U/L 04/02/2025 6:54 AM [facility] GFR >60 mL/min/1.7 3 sq meter 04/02/2025 6:54 AM T [facility] Comment:eGFR calculated with 2020 CKD-EPI equation. Vegetarian diet, extremely high or low muscle mass, and may affect results. Cystatin C with Glomerular Filtration Rate is a suitable alternative for these patients. ANION GAP 8(L) 9 - 20 mmol/L 04/02/2025 6:54 AM [facility] Blood Venipuncture / Unknown 04/02/2025 6:08 AM CDT 04/02/2025 6:17 AM CDT us Rico Galvan MD CHEMISTRY ORDERABLES Final R esult [facility] CLIA # [id number] [address] [place] [id number] * (ABNORMAL) CBC WITH DIFFERENTIAL (04/02/2025 6:08 AM CDT) WBC 13.3(H) 4.8 - 10.8 K/uL 04/02/2025 6:23 AM [facility] RBC 2.95(L) 4.20 - 5.40 M/uL 04/02/2025 6:23 AM [facility] HEMOGLOBIN 9.1(L) 12.0 - 16.0 g/dL 04/02/2025 6:23 AM [facility] HEMATOCRIT 28.8(L) 36.0 - 46.0 % 04/02/2025 6:23 AM [facility] MCV 97.6 84.0 - 103.0 fL 04/02/2025 6:23 AM [facility] MCH 30.8 27.0 - 34.0 pg 04/02/2025 6:23 AM [facility] MCHC 31.6 30.0 - 35.0 g/dL 04/02/2025 6:23 AM [facility] PLATELETS 548(H) 140 - 440 K/uL 04/02/2025 6:23 AM [facility] MPV 10.0 8.9 - 12.8 fL 04/02/2025 6:23 AM [facility] RDW 15.2(H) 11.0 - 14.5 % 04/02/2025 6:23 AM [facility] RDW-STDEV 54.4(H) 37.0 - 54.0 fL 04/02/2025 6:23 AM [facility] NEUTROPHILS 83(H) 42 - 75 % 04/02/2025 6:23 AM [facility] LYMPHOCYTES 11(L) 24 - 44 % 04/02/2025 6:23 AM [facility] MONOCYTES 5 2 - 10 % 04/02/2025 6:23 AM [facility] EOSINOPHILS 0 0 - 7 % 04/02/2025 6:23 AM [facility] BASOPHILS 0 0 - 1 % 04/02/2025 6:23 AM CDT [facility] IMMATURE GRANULOCYTES 1 0 - 2 % 04/02/2025 6:23 AM CDT [facility] NEUTROPHIL ABSOLUTE 11.06(H) 2.00 - 8.00 K/uL 04/02/2025 6:23 AM CDT [facility] LYMPHOCYTE ABSOLUTE 1.43 1.20 - 4.00 K/uL 04/02/2025 6:23 AM CDT [facility] MONOCYTE ABSOLUTE 0.72(H) 0.10 - 0.60 K/uL 04/02/2025 6:23 AM CDT [facility] EOSINOPHIL ABSOLUTE 0.01 0.00 - 0.70 K/uL 04/02/2025 6:23 AM CDT [facility] BASOPHILS ABSOLUTE 0.01 0.00 - 0.20 K/uL 04/02/2025 6:23 AM CDT [facility] IMMATURE GRANULOCYTES ABSOLUTE 0.07 0.00 - 0.10 K/uL 04/02/2025 6:23 AM CDT [facility] SMEAR REVIEWED: NA - Not Applicable 04/02/2025 6:23 AM CDT [facility] Blood Venipuncture / Unknown 04/02/2025 6:08 AM CDT 04/02/2025 6:16 AM CDT Rico Galvan MD HEMATOLOGY ORDERABLES Final Result [facility] CLIA # [id number] [address] [place] [address] * XR PELVIS 1 OR 2 VW [...] METABOLIC PANEL (03/30/2025 1:09 AM CDT) Pathologist [facility] SODIUM 140 136 - 145 mmol/L 03/30/2025 2:11 AM CDT [facility] POTASSIUM 4.1 3.5 - 5.1 mmol/L 03/30/2025 2:11 AM CDT [facility] CHLORIDE 109(H) 98 - 107 mmol/L 03/30/2025 2:11 AM CDT [facility] CO2 21(L) 22 - 29 mmol/L 03/30/2025 2:11 AM CDT [facility] CALCIUM 9.7 8.8 - 10.2 mg/dL 03/30/2025 2:11 AM CDT [facility] BUN 9 8 - 23 mg/dL 03/30/2025 2:11 AM CDT [facility] CREATININE 0.58 0.51 - 0.95 mg/dL 03/30/2025 2:11 AM CDT [facility] Comment:The GFR result is no t clinically significant on patients <18 or >70 years of age. GLUCOSE 137(H) 74 - 99 mg/dL 03/30/2025 2:11 AM CDT [facility] TOTAL PROTEIN 5.3(L) 6.4 - 8.3 g/dL 03/30/2025 2:11 AM T [facility] ALBUMIN 2.9(L) 3.5 - 5.2 g/dL 03/30/2025 2:11 AM T [facility] BILIRUBIN TOTAL 0.3 0.0 - 1.0 mg/dL 03/30/2025 2:11 AM T [facility] ALKALINE PHOSPHATASE 134(H) 35 - 104 U/L 03/30/2025 2:11 AM T [facility] AST 10 10 - 35 U/L 03/30/2025 2:11 AM T [facility] ALT 24 <=35 U/L 03/30/2025 2:11 AM T [facility] GFR >60 mL/min/1.7 3 sq meter 03/30/2025 2:11 AM T [facility] Comment:eGFR calculated with 2020 CKD-EPI equation. Vegetarian diet, extremely high or low muscle mass, and may affect results. Cystatin C with Glomerular Filtration Rate is a suitable alternative for these patients. ANION GAP 10 9 - 20 mmol/L 03/30/2025 2:11 AM [facility] Blood Venipuncture / Unknown 03/30/2025 1:09 AM CDT 03/30/2025 1:40 AM CDT Rico Galvan MD CHEMISTRY ORDERABLES Final R esult [facility] CLIA # [id number] [address] [place] [id number] * MAGNESIUM LEVEL (03/29/2025 3:36 AM CDT) MAGNESIUM 2.0 1.6 - 2.4 mg/dL 03/29/2025 4:47 AM [facility] Blood Venipuncture / Unknown 03/29/2025 3:36 AM CDT 03/29/2025 4:10 AM CDT Rico Galvan MD CHEMISTRY ORDERABLES Final R esult [facility] CLIA # [id number] [address] [place] [address] [place] [address] * (ABNORMAL) COMPREHENSIVE METABOLIC PANEL (03/29/2025 3:36 AM CDT) SODIUM 141 136 - 145 mmol/L 03/29/2025 4:47 AM T [facility] POTASSIUM 3.3(L) 3.5 - 5.1 mmol/L 03/29/2025 4:47 AM [facility] CHLORIDE 107 98 - 107 mmol/L 03/29/2025 4:47 AM T [facility] CO2 23 22 - 29 mmol/L 03/29/2025 4:47 AM [facility] CALCIUM 9.6 8.8 - 10.2 mg/dL 03/29/2025 4:47 AM [facility] BUN 9 8 - 23 mg/dL 03/29/2025 4:47 AM [facility] CREATININE 0.62 0.51 - 0.95 mg/dL 03/29/2025 4:47 AM T [facility] Comment:The GFR result is no t clinically significant on patients <18 or >70 years of age. GLUCOSE 113(H) 74 - 99 mg/dL 03/29/2025 4:47 AM [facility] TOTAL PROTEIN 5.4(L) 6.4 - 8.3 g/dL 03/29/2025 4:47 AM [facility] ALBUMIN 2.9(L) 3.5 - 5.2 g/dL 03/29/2025 4:47 AM [facility] BILIRUBIN TOTAL 0.3 0.0 - 1.0 mg/dL 03/29/2025 4:47 AM T [facility] ALKALINE PHOSPHATASE 124(H) 35 - 104 U/L 03/29/2025 4:47 AM CDT [facility] AST 14 10 - 35 U/L 03/29/2025 4:47 AM CDT [facility] ALT 26 <=35 U/L 03/29/2025 4:47 AM T [facility] GFR >60 mL/min/1.7 3 sq meter 03/29/2025 4:47 AM T [facility] Comment:eGFR calculated with 2020 CKD-EPI equation. Vegetarian diet, extremely high or low muscle mass, and may affect results. Cystatin C with Glomerular Filtration Rate is a suitable alternative for these patients. ANION GAP 11 9 - 20 mmol/L 03/29/2025 4:47 AM T [facility] Blood Venipuncture / Unknown 03/29/2025 3:36 AM CDT 03/29/2025 4:10 AM CDT us Rico Galvan MD CHEMISTRY ORDERABLES Final R esult [facility] CLIA # [id number] [address] [place] [id number] * (ABNORMAL) CBC WITH DIFFERENTIAL (03/29/2025 3:36 AM CDT) WBC 10.4 4.8 - 10.8 K/uL 03/29/2025 4:13 AM CDT [facility] RBC 3.10(L) 4.20 - 5.40 M/uL 03/29/2025 4:13 AM T [facility] HEMOGLOBIN 9.6(L) 12.0 - 16.0 g/dL 03/29/2025 4:13 AM CDT [facility] HEMATOCRIT 30.5(L) 36.0 - 46.0 % 03/29/2025 4:13 AM [facility] MCV 98.4 84.0 - 103.0 fL 03/29/2025 4:13 AM [facility] MCH 31.0 27.0 - 34.0 pg 03/29/2025 4:13 AM [facility] MCHC 31.5 30.0 - 35.0 g/dL 03/29/2025 4:13 AM [facility] PLATELETS 497(H) 140 - 440 K/uL 03/29/2025 4:13 AM [facility] MPV 10.4 8.9 - 12.8 fL 03/29/2025 4:13 AM [facility] RDW 14.0 11.0 - 14.5 % 03/29/2025 4:13 AM [facility] RDW-STDEV 50.3 37.0 - 54.0 fL 03/29/2025 4:13 AM [facility] NEUTROPHILS 79(H) 42 - 75 % 03/29/2025 4:13 AM [facility] LYMPHOCYTES 13(L) 24 - 44 % 03/29/2025 4:13 AM [facility] MONOCYTES 7 2 - 10 % 03/29/2025 4:13 AM [facility] EOSINOPHILS 0 0 - 7 % 03/29/2025 4:13 AM [facility] BASOPHILS 0 0 - 1 % 03/29/2025 4:13 AM [facility] IMMATURE GRANULOCYTES 0 0 - 2 % 03/29/2025 4:13 AM [facility] NEUTROPHIL ABSOLUTE 8.22(H) 2.00 - 8.00 K/uL 03/29/2025 4:13 AM [facility] LYMPHOCYTE ABSOLUTE 1.39 1.20 - 4.00 K/uL 03/29/2025 4:13 AM [facility] MONOCYTE ABSOLUTE 0.69(H) 0.10 - 0.60 K/uL 03/29/2025 4:13 AM CDT [facility] EOSINOPHIL ABSOLUTE 0.01 0.00 - 0.70 K/uL 03/29/2025 4:13 AM CDT [facility] BASOPHILS ABSOLUTE 0.01 0.00 - 0.20 K/uL 03/29/2025 4:13 AM CDT [facility] IMMATURE GRANULOCYTES ABSOLUTE 0.04 0.00 - 0.10 K/uL 03/29/2025 4:13 AM CDT [facility] SMEAR REVIEWED: NA - Not Applicable 03/29/2025 4:13 AM CDT [facility] Blood Venipuncture / Unknown 03/29/2025 3:36 AM CDT 03/29/2025 4:06 AM CDT us Rico Galvan MD HEMATOLOGY ORDERABLES Final Result [facility] CLIA # [id number] [address] [place] [id number] * CT GUIDE PERCUT DRAIN W CATH [...] along the planned trajectory. Next, a 5 [facility] Yueh needle/catheter combination was advanced using CT fluoroscopy as a guide to the target pelvic abscess and the needle was removed with the catheter remaining in place. Next, through the 5 [facility] catheter a 035 wire was advanced into the targeted fluid collection. Over the wire 5 [facility] Helen[facility] catheter was removed and a 10 Fr [...] along the planned trajectory. Next, a 5 [facility] Yueh needle/catheter combination was advanced using CT fluoroscopy as a guide to the target pelvic abscess and the needle was removed with the catheter remaining in place. Next, through the 5 [facility] Helen[facility] catheter a 035 wire was advanced into the targeted fluid collection. Over the wire 5 [facility] Helenian catheter was removed and a 10 Fr [...] GRAM STAIN (03/28/2025 2:03 PM CDT) Pathologist [facility] CULTURE 3 to 4+ or numerous Mixed enteric caitie(A) 03/31/2025 8:25 AM CDT [facility] GRAM STAIN No Polymorphonuclear WBC 03/31/2025 8:25 AM CDT [facility] GRAM STAIN Mixed caitie with no predominate morphology 03/31/2025 8:25 AM CDT [facility] Abscess ENTIRE PELVIS / Unknown Collection / Unknown 03/28/2025 2:03 PM CDT 03/28/2025 2:32 PM CDT Jas Gerard MD MICROBIOLOGY - GENERAL ORDERABLE S Final [id number] [address] [place] [address] [place], [place] [id number] * (ABNORMAL) BASIC METABOLIC PANEL (03/28/2025 5:12 AM CDT) SODIUM 141 136 - 145 mmol/L 03/28/2025 6:48 AM CDT [facility] POTASSIUM 3.6 3.5 - 5.1 mmol/L 03/28/2025 6:48 AM T [facility] CHLORIDE 111(H) 98 - 107 mmol/L 03/28/2025 6:48 AM T [facility] CO2 22 22 - 29 mmol/L 03/28/2025 6:48 AM T [facility] CALCIUM 9.2 8.8 - 10.2 mg/dL 03/28/2025 6:48 AM T [facility] BUN 7(L) 8 - 23 mg/dL 03/28/2025 6:48 AM T [facility] CREATININE 0.62 0.51 - 0.95 mg/dL 03/28/2025 6:48 AM T [facility] Comment:The GFR result is no t clinically significant on patients <18 or >70 years of age. GLUCOSE 95 74 - 99 mg/dL 03/28/2025 6:48 AM [facility] GFR >60 mL/min/1.7 3 sq meter 03/28/2025 6:48 AM T [facility] Comment:eGFR calculated with 2020 CKD-EPI equation. Vegetarian diet, extremely high or low muscle mass, and may affect results. Cystatin C with Glomerular Filtration Rate is a suitable alternative for these patients. ANION GAP 8(L) 9 - 20 mmol/L 03/28/2025 6:48 AM T [facility] Blood Venipuncture / Unknown 03/28/2025 5:12 AM CDT 03/28/2025 6:13 AM CDT us Driss Dahl MD CHEMISTRY ORDERABLES Final R esult [facility] CLIA # [id number] [address] [place] [address] * (ABNORMAL) CBC WITHOUT DIFFERENTIAL (03/28/2025 5:12 AM CDT) WBC 8.4 4.8 - 10.8 K/uL 03/28/2025 6:19 AM CDT [facility] RBC 2.77(L) 4.20 - 5.40 M/uL 03/28/2025 6:19 AM CDT [facility] HEMOGLOBIN 8.4(L) 12.0 - 16.0 g/dL 03/28/2025 6:19 AM CDT [facility] HEMATOCRIT 27.2(L) 36.0 - 46.0 % 03/28/2025 6:19 AM CDT [facility] MCV 98.2 84.0 - 103.0 fL 03/28/2025 6:19 AM CDT [facility] MCH 30.3 27.0 - 34.0 pg 03/28/2025 6:19 AM CDT [facility] MCHC 30.9 30.0 - 35.0 g/dL 03/28/2025 6:19 AM CDT [facility] PLATELETS 385 140 - 440 K/uL 03/28/2025 6:19 AM CDT [facility] MPV 10.7 8.9 - 12.8 fL 03/28/2025 6:19 AM T [facility] RDW 14.2 11.0 - 14.5 % 03/28/2025 6:19 AM T [facility] RDW-STDEV 51.3 37.0 - 54.0 fL 03/28/2025 6:19 AM T [facility] Blood Venipuncture / Unknown 03/28/2025 5:12 AM CDT 03/28/2025 6:14 AM CDT us Driss Dahl MD HEMATOLOGY ORDERABLES Final Result [facility] CLIA # [id number] [address] [address] [place] [address] * EKG 12-LEAD (03/28/2025 4:40 AM CDT) 03/28/2025 4:40 AM CDT Narrative INTERFACE SYSTEM - 03/30/2025 6:29 [place] [address] Test Date: 2025-03-28 Pat Name: JAVIER STUBBS Department: 12 Room: [facility] 02 Gender: Female 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: [id number] : 1940 Requested By: Order Number: [id number] Reading MD: Sen Tanner Measurements Intervals [place] Rate: 70 P: 67 OK: 154 QRS: -35 QRSD: 90 T: 14 QT: 406 QTc: 438 Interpretive Statements Normal sinus rhythm Left axis deviation Abnormal ECG Electronically Signed On 03-30-2025 18:29:13 CDT by Sen Tanner Procedure Note Sen Tanner MD - 03/30/[address] [address] Test Date: 2025-03-28 Pat Name: [facility] Department: 12 Room: [facility] 02 Gender: Female 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: [id number] : 1940 Requested By: Order Number: [id number] Reading MD: Sen Tanner Measurements Intervals [place] Rate: 70 P: 67 OK: 154 QRS: -35 QRSD: 90 T: 14 QT: 406 QTc: 438 Interpretive Statements Normal sinus rhythm Left axis deviation Abnormal ECG Electronically Signed On 03-30-2025 18:29:13 CDT by Sen Tanner us Driss Dahl MD ECG ORDERABLES Final Result INTERFACE SYSTEM Refer to clinic/hospital department * (ABNORMAL) URINE CULTURE (03/28/2025 12:06 AM CDT) CULTURE NAKASEOMYCES GLABRATUS(A) LORA MCG/ML 04/03/2025 3:33 PM CDT [facility] Comment: Sent to the [facility], [place] See separate or scanned report. Urine URINE SPECIMEN OBTAINED BY CLEAN CATCH PROCEDURE / Unknown Collection / Unknown 03/28/2025 12:06 AM CDT 03/28/2025 12:12 AM CDT Narrative [facility] - 04/03/2025 3:33 PM CDT See scan for results from reference laboratory. Driss Dahl MD MICROBIOLOGY - GENERAL ORDER [place] Final Result Performing Organization Address [facility]/ZIP Co de Phone Number [facility] CLIA # [id number] [address] [facility] [place] [address] * EXTRA TUBE (URINE PRINCE) (03/28/2025 12:06 AM CDT) Urine URINE SPECIMEN OBTAINED BY CLEAN CATCH PROCEDURE / Unknown Collection / Unknown 03/28/2025 12:06 AM CDT 03/28/2025 12:12 AM CDT Driss Dahl MD URINE ORDERABLES Final Resul t Performing Organization Address [facility]/[place] Co de Phone Number [facility] CLIA # [id number] [address] [place] [address] * (ABNORMAL) URINALYSIS WITH REFLEX MICROSCOPIC (03/28/2025 12:06 AM CDT) COLOR UA Yellow Pale to Dark Yellow 03/28/2025 12:27 AM CDT [facility] CLARITY UA Clear Clear 03/28/2025 12:27 AM CDT [facility] SPECIFIC GRAVITY UA 1.025 1.003 - 1.035 03/28/2025 12:27 AM CDT [facility] PH UA 5.5 5.0 - 8.0 03/28/2025 12:27 AM CDT [facility] LEUKOCYTE ESTERASE UA Negative Negative 03/28/2025 12:27 AM T [facility] NITRITE UA Negative Negative 03/28/2025 12:27 AM T [facility] PROTEIN UA 1+(A) Negative 03/28/2025 12:27 AM T [facility] GLUCOSE UA Negative Negative 03/28/2025 12:27 AM [facility] KETONES UA Trace(A) Negative 03/28/2025 12:27 AM T [facility] UROBILINOGEN UA 0.2 <2.0 mg/dL 12:27 AM T [facility] BILIRUBIN UA Negative Negative 03/28/2025 12:27 AM [facility] BLOOD UA 2+(A) Negative 03/28/2025 12:27 AM [facility] WBC UA 0-2 0 - 2 /hpf 03/28/2025 12:27 AM [facility] RBC UA 51-100(A) 0 - 2 /hpf 03/28/2025 12:27 AM [facility] BACTERIA UA 3+(A) Negative /hpf 03/28/2025 12:27 AM [facility] EPITHELIAL CELLS, URINE 0-5 0 - 5 /hpf 03/28/2025 12:27 AM [facility] HYALINE CAST 11-25(A) None Seen, 0-2 /lpf 03/28/2025 12:27 AM [facility] YEAST, BUDDING Present(A) Absent 03/28/2025 12:27 AM [facility] Urine URINE SPECIMEN OBTAINED BY CLEAN CATCH PROCEDURE / Unknown Collection / Unknown 03/28/2025 12:06 AM CDT 03/28/2025 12:12 AM CDT us Driss Dahl MD URINE ORDERABLES Final Resul t [facility] CLIA # [id number] [facility] [place] [id number] * (ABNORMAL) FERRITIN (03/27/2025 8:24 PM CDT) FERRITIN 541.8(H) 13.0 - 150.0 ng/mL 03/28/2025 12:40 AM CDT [facility] Blood Venipuncture / Unknown 03/27/2025 8:24 PM CDT 03/27/2025 8:44 PM CDT Driss Dahl MD CHEMISTRY ORDERABLES Final R esult [facility] CLIA # [id number] [address] [id number] * (ABNORMAL) IRON, TIBC, AND PERCENT SATURATION (03/27/2025 8:24 PM CDT) IRON 42 37 - 145 ug/dL 03/28/2025 12:42 AM CDT [facility] TIBC 144(L) 250 - 450 ug/dL 03/28/2025 12:42 AM CDT [facility] IRON % SATURATION 29 15 - 60 % 03/28/2025 12:42 AM CDT [facility] Blood Venipuncture / Unknown 03/27/2025 8:24 PM CDT 03/27/2025 8:44 PM CDT Driss Dahl MD CHEMISTRY ORDERABLES Final R esult [facility] CLIA # [id number] [address] [id number] * (ABNORMAL) COMPREHENSIVE METABOLIC PANEL (03/27/2025 8:24 PM CDT) SODIUM 140 136 - 145 mmol/L 03/27/2025 9:16 PM [facility] POTASSIUM 3.9 3.5 - 5.1 mmol/L 03/27/2025 9:16 PM [facility] CHLORIDE 109(H) 98 - 107 mmol/L 03/27/2025 9:16 PM [facility] CO2 22 22 - 29 mmol/L 03/27/2025 9:16 PM [facility] CALCIUM 9.5 8.8 - 10.2 mg/dL 03/27/2025 9:16 PM [facility] BUN 8 8 - 23 mg/dL 03/27/2025 9:16 PM [facility] CREATININE 0.70 0.51 - 0.95 mg/dL 03/27/2025 9:16 PM [facility] Comment:The GFR result is no t clinically significant on patients <18 or >70 years of age. GLUCOSE 147(H) 74 - 99 mg/dL 03/27/2025 9:16 PM [facility] TOTAL PROTEIN 5.5(L) 6.4 - 8.3 g/dL 03/27/2025 9:16 PM [facility] ALBUMIN 3.2(L) 3.5 - 5.2 g/dL 03/27/2025 9:16 PM [facility] BILIRUBIN TOTAL 0.5 0.0 - 1.0 mg/dL 03/27/2025 9:16 PM [facility] ALKALINE PHOSPHATASE 118(H) 35 - 104 U/L 03/27/2025 9:16 PM [facility] AST 14 10 - 35 U/L 03/27/2025 9:16 PM [facility] ALT 25 <=35 U/L 03/27/2025 9:16 PM [facility] GFR >60 mL/min/1.7 3 sq meter 03/27/2025 9:16 PM [facility] Comment:eGFR calculated with 2020 CKD-EPI equation. Vegetarian diet, extremely high or low muscle mass, and may affect results. Cystatin C with Glomerular Filtration Rate is a suitable alternative for these patients. ANION GAP 9 9 - 20 mmol/L 03/27/2025 9:16 PM CDT [facility] Blood Venipuncture / Unknown 03/27/2025 8:24 PM CDT 03/27/2025 8:44 PM CDT Driss Dahl MD CHEMISTRY ORDERABLES Final R esult Performing Organization Address [facility] Co de Phone Number [facility] CLIA # [id number] [address] [place] [id number] * PROTIME-INR (03/27/2025 8:24 PM CDT) PROTIME 14.7 12.7 - 14.9 Seconds 03/27/2025 8:51 PM CDT [facility] INR 1.1 0.8 - 1.2 03/27/2025 8:51 PM CDT [facility] Blood Venipuncture / Unknown 03/27/2025 8:24 PM CDT 03/27/2025 8:39 PM CDT Narrative [facility] - 03/27/2025 8:51 PM CDT Expected Values for INR: DVT/PE Goal INR 2.5; range 2.0 - 3.0 Valve Replacement Tissue Goal INR 2.5; range 2.0 - 3.0 Valve Replacement Mechanical Goal INR 3.0; range 2.5 - 3.5 POST-UT Goal INR 2.5; range 2.0 - 3.0 or Goal INR 3.0; range 2.5 - 3.5 Atrial Fibrillation Goal INR 2.5; range 2.0 - 3.0 Ischemic Stroke Goal INR 2.5; range 2.0 - 3.0 Driss Dahl MD HEMATOLOGY ORDERABLES Final Result Performing Organization Address [facility]/ZIP Co de Phone Number [facility] CLIA # [id number] [address] [address] [place] [address] * (ABNORMAL) CBC WITH DIFFERENTIAL (03/27/2025 8:24 PM CDT) [facility] WBC 7.3 4.8 - 10.8 K/uL 03/27/2025 8:48 PM CDT [facility] RBC 2.79(L) 4.20 - 5.40 M/uL 03/27/2025 8:48 PM CDT [facility] HEMOGLOBIN 8.5(L) 12.0 - 16.0 g/dL 03/27/2025 8:48 PM CDT [facility] HEMATOCRIT 27.6(L) 36.0 - 46.0 % 03/27/2025 8:48 PM CDT [facility] MCV 98.9 84.0 - 103.0 fL 03/27/2025 8:48 PM CDT [facility] MCH 30.5 27.0 - 34.0 pg 03/27/2025 8:48 PM CDT [facility] MCHC 30.8 30.0 - 35.0 g/dL 03/27/2025 8:48 PM CDT [facility] PLATELETS 373 140 - 440 K/uL 03/27/2025 8:48 PM CDT [facility] MPV 10.4 8.9 - 12.8 fL 03/27/2025 8:48 PM CDT [facility] RDW 14.3 11.0 - 14.5 % 03/27/2025 8:48 PM CDT [facility] RDW-STDEV 51.8 37.0 - 54.0 fL 03/27/2025 8:48 PM CDT [facility] NEUTROPHILS 90(H) 42 - 75 % 03/27/2025 8:48 PM CDT [facility] LYMPHOCYTES 9(L) 24 - 44 % 03/27/2025 8:48 PM CDT [facility] MONOCYTES 1(L) 2 - 10 % 03/27/2025 8:48 PM CDT [facility] EOSINOPHILS 0 0 - 7 % 03/27/2025 8:48 PM CDT [facility] BASOPHILS 0 0 - 1 % 03/27/2025 8:48 PM CDT [facility] IMMATURE GRANULOCYTES 1 0 - 2 % 03/27/2025 8:48 PM CDT [facility] NEUTROPHIL ABSOLUTE 6.49 2.00 - 8.00 K/uL 03/27/2025 8:48 PM CDT [facility] LYMPHOCYTE ABSOLUTE 0.63(L) 1.20 - 4.00 K/uL 03/27/2025 8:48 PM CDT [facility] MONOCYTE ABSOLUTE 0.07(L) 0.10 - 0.60 K/uL 03/27/2025 8:48 PM CDT [facility] EOSINOPHIL ABSOLUTE 0.00 0.00 - 0.70 K/uL 03/27/2025 8:48 PM CDT [facility] BASOPHILS ABSOLUTE 0.01 0.00 - 0.20 K/uL 03/27/2025 8:48 PM CDT [facility] IMMATURE GRANULOCYTES ABSOLUTE 0.05 0.00 - 0.10 K/uL 03/27/2025 8:48 PM CDT [facility] SMEAR REVIEWED: NA - Not Applicable 03/27/2025 8:48 PM CDT [facility] Blood Venipuncture / Unknown 03/27/2025 8:24 PM CDT 03/27/2025 8:40 PM CDT us Driss Dahl MD HEMATOLOGY ORDERABLES Final Result [facility] CLIA # [id number] [address] [place] [address] [place] [address] * TYPE AND SCREEN (03/27/2025 8:21 PM CDT) ABO GROUP B 03/27/2025 9:56 PM CDT [facility] (D) TYPE Positive 03/27/2025 9:56 PM CDT [facility] ANTIBODY SCREEN Negative 03/27/2025 9:56 PM CDT [facility] Blood Venipuncture / Unknown 03/27/2025 8:21 PM CDT 03/27/2025 8:39 PM CDT Driss Dahl MD BLOOD BANK ORDERABLES Edited Result - Final [facility] CLIA#[id number] [place] [address], * XR CHEST PA OR AP 1 [...] is seen. Impression: No evidence of infiltrates. Driss Dahl MD DIAGNOSTIC IMAGING ORDERABLE S [...] Oral, EVERY 4 HOURS PRN, Starting on 03/29/25 at 1327, Until Sun04/03/25 at 0408, Pain (See admin instructions), Routine Given 04/02/2025 8:39 PM CDT 2 Tablets Given 04/02/2025 8:40 AM CDT 2 Tablets Given 04/01/2025 9:29 PM CDT 2 Tablets lidocaine PF 1% (XYLOCAINE MPF) injection 15 mL 15 mL (150 mg), Infiltration, ONE TIME ONLY, 1 dose, On 03/28/25 at 1230, Routine, IntraProcedure (IR) Admin by Another Clinician (Luz) 03/28/2025 1:42 PM CDT 15 mL metroNIDAZOLE [...] Son RN)2128 (Given - Provider: Eli Curtis, SHARON) 0832 (Given - Provider: Thelma Son RN)2038 (Given - Provider: Eli Curtis RN) balsam violetta-castor oiL (VENELEX) topical ointment Topical, DAILY, First dose on 03/30/25 at 1315, Until Discontinued, Routine 1203 (Given - Provider: Thelma Son RN - Comment: neena heels ) 0832 (Given - Provider: Thelma Son RN) clopidogreL (PLAVIX) tablet 75 mg 75 mg, Oral, DAILY, First dose on 03/28/25 [...] Curtis RN)1417 (Given - Provider: Thelma Son RN)212 (Given - Provider: Eli Curtis RN) 0500 (Not Given - Provider: Eli Curtis RN - Reason: Other - See Comment)1230 (Given - Provider: Thelma Son RN)2038 (Given [...] Routine 1202 (Given - Provider: Thelma Son RN)212 (Given - Provider: Eli Curtis RN) 0831 [...] Routine 1556 (Given - Provider: Thelma Son RN)2128 (Given - Provider: Eli Curtis RN) 0840 (Given - Provider: Thelma Son RN)2038 (Given - Provider: Eli Curtis RN) ondansetron (ZOFRAN) 4 mg/2 mL injection 4 mg 4 mg, IV, EVERY 6 HOURS PRN, Starting on Sun03/27/25 at 1915, Until Sun04/03/25 at 0408, Nausea/Emesis, Routine documented in this encounter
[2025-04-03 20:05] VITALS: BP 120/66; PULSE 106; RESP 18; TEMP 36.9; O2SAT 95
--- OUTSIDE RECORDS SUMMARY | 2025-04-03 20:15 | XMS_ITS | Encounter Summary ---
Author Organization [facility] Address [address] [facility] [address] Dr[address] Blackburn: Epic [place] [phone] Care Team Providers Care Center Mgr Name Role Phone Unavailable Primary Care Provider Unavailabl e Encounter Details Date Type Department Care Team (Latest Contact Info) Description 03/27/2025 Travel Social History Tobacco Use Types Packs/Day Years Used Date Smoking Tobacco: Never Assessed Feeling Safe Answer Date Recorded Are you [...] PM CDT documented as of this encounter Plan of Treatment Upcoming Encounters Date Type Department Care Team (Late st Contact Info) Description 04/22/2025 9:45 AM CDT Office Visit [facility] Gen Spec Surg [address] [place] [address] Tucker Marroquin MD [address] [place] [address] documented as of this encounter Visit Diagnoses Not on filedocumented in this encounter
--- OUTSIDE RECORDS SUMMARY | 2025-04-03 20:15 | XMS_ITS | Clinical Summary ---
Author Organization [facility] Address [address] [place] [address] Care Team Providers Care Human Resource Consultant Name Role Phone Unavailable Primary Care Provider Unavailabl e Allergies No known active allergies Medications clopidogreL (PLAVIX) 75 mg Tablet Take 75 mg by mouth. Active acyclovir (ZOVIRAX) 5 % Cream Apply to affected area 5 times daily. Active ibuprofen (MOTRIN) 200 mg tablet Take 200 mg by mouth every 6 hours as needed for Pain, Mild. Active pantoprazole (PROTONIX) 20 mg Tablet, Delayed Release (E.C.) Take 20 mg by mouth daily. Active predniSONE (DELTASONE) 10 mg tablet Take 2.5 Tablets by mouth daily with breakfast. Active HYDROcodone-mee taminophen (NORCO) 10-325 mg Tablet Take 1 Tablet by mouth every 4 hours as needed for Pain. Active amoxicillin-cla vulanate (AUGMENTIN) 875-125 mg tablet Take 1 Tablet by mouth every 12 hours for 10 days. 5 04/12/20 25 Active saccharomyces boulardii (FLORASTOR) 250 mg Capsule Take 1 Capsule (250 mg) by mouth 2 times daily for 14 days. 5 04/16/20 25 Active zinc OXIDE-cod liver oil (Desitin) 40 % Paste Apply to affected area 2 times daily. 5 Active naloxone (NARCAN) 4 mg/spray [place], Non-Aerosol EMERGENCY USE ONLY: Administer 1 spray (4 mg) in one nostril one time. May repeat in alternating nostrils every 2-3 min until responsive or EMS arrives. 5 Active Active Problems Problem Noted Date Diagnosed Date Protein-calorie malnutrition, moderate Sigmoid diverticulitis 03/27/2025 Abscess of sigmoid colon due to diverticulitis 0 03/27/2025 Lumbosacral spondylosis without myelopathy 03/27 Indwelling Rollins catheter present 03/27/2025 Pressure injury of sacral region, stage 1 2024 Pancreatic cyst 03/27/2025 Osteoarthritis of multiple joints 03/27/2025 Gastroesophageal reflux disease without esophagi tis 03/27/2025 Anemia 03/27/2025 Encounters Date Type Department Care Team Description 04/03/2025 Orders Only [facility] HIM [address] [place] [phone] Provider, Abstract 03/31/2025 External Device Data [facility] ABSTRACTION Provider, Abstract 03/31/2025 External Device Data [place] ABSTRACTION Provider, Abstract 03/31/2025 External Device Data [place]STRACTION Provider, Abstract 03/27/2025 6:59 PM CDT - 04/03/2025 12:02 AM CDT Hospital Encounter [facility] 3D Medical Telemetry [address] [place] [phone] Garth Azar MD Sundaram, MD Cole Naqvi Jagdeep S, MD Sigmoid diverticulitis Discharge Disposition: [facility](SNF) with Medicare Certification in Anticipation of Skilled Care 03/27/2025 Travel 03/11/2025 External Device Data STL ABSTRACTION Provider, [...] Mass Index 30.06 03/27/2025 7:00 PM CDT Plan of Treatment Upcoming Encounters Date Type Department Care Team (Late st Contact Info) Description 04/22/2025 9:45 AM CDT Office Visit [facility] Gen Spec Surg [address] [place] [phone] Tucker Marroquin MD [address] [place] [address] [address] [place] [phone] Health Maintenance Due Date Last Done Comments DTAP/TDAP/TD VACCINES (1 - Tdap) 1959 Traditional Medicare (ACO) Annual Wellness Visit 01/21 PNEUMOCOCCAL VACCINE 50+ YEARS (1 of 1 - PCV) 01/21/19 92 ZOSTER VACCINE (1 of 2) 01/22/1992 OSTEOPOROSIS SCREENING 2007 RSV VACCINE (60+ or ) (1 - 1-dose 75+ series) 2017 INFLUENZA VACCINE (#1) 2025 Procedures Procedure Name Priority Date/Time Associated Diagnosis Comments TELEMETRY REPORT 04/03/2025 3:03 PM CDT COMPREHENSIVE METABOLIC PANEL Routine 04/02/2025 6:08 AM CDT CBC WITH DIFFERENTIAL Routine 04/02/2025 6:08 AM CDT XR PELVIS 1 OR 2 VW Routine 03/30/2025 6 :44 PM CDT COMPREHENSIVE METABOLIC PANEL Routine 03/30/2025 1:09 AM CDT MAGNESIUM LEVEL Routine 03/29/2025 3:36 AM CDT COMPREHENSIVE METABOLIC PANEL Routine 03/29/2025 3:36 AM CDT CBC WITH DIFFERENTIAL Routine 03/29/2025 3:[address] GUIDE PERCUT DRAIN W CATH Routine 03/28/2025 2:47 PM CDT ANAEROBIC/AEROBIC CULTURE W GRAM STAIN Routine 03/28/2025 2:03 PM CDT BASIC METABOLIC PANEL Routine 03/28/2025 5:12 AM CDT CBC WITHOUT DIFFERENTIAL Routine 03/28/2025 5:12 AM CDT EKG 12-LEAD Routine 03/28/2025 4:40 AM CDT EXTRA TUBE (URINE PRINCE) Routine 03/28/2025 12:06 AM CDT URINALYSIS W/REFLEX MICROSCOPIC Routine 03/28/2025 12:06 AM CDT URINE CULTURE Routine 03/28/2025 12:06 AM CDT FERRITIN Routine 03/27/2025 8:24 PM CDT IRON, TIBC, AND PERCENT SATURATION Routine 03/27/2025 8:24 PM CDT COMPREHENSIVE METABOLIC PANEL Routine 03/27/2025 8:24 PM CDT PROTIME-INR Routine 03/27/2025 8:24 PM CDT CBC WITH DIFFERENTIAL Routine 03/27/2025 8:24 PM CDT TYPE AND SCREEN Routine 03/27/2025 8:21 PM CDT XR CHEST PA OR AP 1 VW Routine 7:37 PM CDT COMPREHENSIVE METABOLIC PANEL Routine 03/26/2025 12:55 PM CDT COMPREHENSIVE METABOLIC PANEL Routine 03/25/2025 12:52 PM CDT COMPREHENSIVE METABOLIC PANEL Routine 03/24/2025 12:53 PM CDT COMPREHENSIVE METABOLIC PANEL Routine 03/23/2025 12:54 PM CDT COMPREHENSIVE METABOLIC PANEL Routine 03/22/2025 12:56 PM CDT from Last 3 Months Results * TELEMETRY REPORT (04/03/2025 3:03 PM CDT) us Provider Scanning ECG ORDERABLES Final Result * (ABNORMAL) CBC WITH DIFFERENTIAL (04/02/2025 6:08 AM CDT) Only the most recent of3 resultswithin the time period is included. WBC 13.3(H) 4.8 - 10.8 K/uL 04/02/2025 6:23 AM CDT [facility] RBC 2.95(L) 4.20 - 5.40 M/uL 04/02/2025 6:23 AM CDT [facility] HEMOGLOBIN 9.1(L) 12.0 - 16.0 g/dL 04/02/2025 6:23 AM [facility] HEMATOCRIT 28.8(L) 36.0 - 46.0 % 04/02/2025 6:23 AM [facility] MCV 97.6 84.0 - 103.0 fL 04/02/2025 6:23 AM [facility] MCH 30.8 27.0 - 34.0 pg 04/02/2025 6:23 AM [facility] MCHC 31.6 30.0 - 35.0 g/dL 04/02/2025 6:23 AM [facility] PLATELETS 548(H) 140 - 440 K/uL 04/02/2025 6:23 AM [facility] MPV 10.0 8.9 - 12.8 fL 04/02/2025 6:23 AM [facility] RDW 15.2(H) 11.0 - 14.5 % 04/02/2025 6:23 AM [facility] RDW-STDEV 54.4(H) 37.0 - 54.0 fL 04/02/2025 6:23 AM [facility] NEUTROPHILS 83(H) 42 - 75 % 04/02/2025 6:23 AM [facility] LYMPHOCYTES 11(L) 24 - 44 % 04/02/2025 6:23 AM [facility] MONOCYTES 5 2 - 10 % 04/02/2025 6:23 AM [facility] EOSINOPHILS 0 0 - 7 % 04/02/2025 6:23 AM [facility] BASOPHILS 0 0 - 1 % 04/02/2025 6:23 AM [facility] IMMATURE GRANULOCYTES 1 0 - 2 % 04/02/2025 6:23 AM [facility] NEUTROPHIL ABSOLUTE 11.06(H) 2.00 - 8.00 K/uL 04/02/2025 6:23 AM [facility] LYMPHOCYTE ABSOLUTE 1.43 1.20 - 4.00 K/uL 04/02/2025 6:23 AM [facility] MONOCYTE ABSOLUTE 0.72(H) 0.10 - 0.60 K/uL 04/02/2025 6:23 AM CDT [facility] EOSINOPHIL ABSOLUTE 0.01 0.00 - 0.70 K/uL 04/02/2025 6:23 AM CDT [facility] BASOPHILS ABSOLUTE 0.01 0.00 - 0.20 K/uL 04/02/2025 6:23 AM T [facility] IMMATURE GRANULOCYTES ABSOLUTE 0.07 0.00 - 0.10 K/uL 04/02/2025 6:23 AM [facility] SMEAR REVIEWED: NA - Not Applicable 04/02/2025 6:23 AM [facility] Blood Venipuncture / Unknown 04/02/2025 6:08 AM CDT 04/02/2025 6:16 AM CDT Rico Galvan MD HEMATOLOGY ORDERABLES Final Result [facility] CLIA # [id number] [address] [place] [address] * (ABNORMAL) COMPREHENSIVE METABOLIC PANEL (04/02/2025 6:08 AM CDT) Only the most recent of9 resultswithin the time period is included. SODIUM 140 136 - 145 mmol/L 04/02/2025 6:54 AM [facility] POTASSIUM 4.0 3.5 - 5.1 mmol/L 04/02/2025 6:54 AM [facility] CHLORIDE 109(H) 98 - 107 mmol/L 04/02/2025 6:54 AM [facility] CO2 23 22 - 29 mmol/L 04/02/2025 6:54 AM [facility] CALCIUM 10.0 8.8 - 10.2 mg/dL 04/02/2025 6:54 AM T [facility] BUN 9 8 - 23 mg/dL 04/02/2025 6:54 AM [facility] CREATININE 0.65 0.51 - 0.95 mg/dL 04/02/2025 6:54 AM [facility] Comment:The GFR result is no t clinically significant on patients <18 or >70 years of age. GLUCOSE 82 74 - 99 mg/dL 04/02/2025 6:54 AM [facility] TOTAL PROTEIN 5.2(L) 6.4 - 8.3 g/dL 04/02/2025 6:54 AM [facility] ALBUMIN 2.7(L) 3.5 - 5.2 g/dL 04/02/2025 6:54 AM [facility] BILIRUBIN TOTAL 0.5 0.0 - 1.0 mg/dL 04/02/2025 6:54 AM [facility] ALKALINE PHOSPHATASE 160(H) 35 - 104 U/L 04/02/2025 6:54 AM [facility] AST 14 10 - 35 U/L 04/02/2025 6:54 AM [facility] ALT 19 <=35 U/L 04/02/2025 6:54 AM [facility] GFR >60 mL/min/1.7 3 sq meter 04/02/2025 6:54 AM [facility] Comment:eGFR calculated with 2020 CKD-EPI equation. Vegetarian diet, extremely high or low muscle mass, and may affect results. Cystatin C with Glomerular Filtration Rate is a suitable alternative for these patients. ANION GAP 8(L) 9 - 20 mmol/L 04/02/2025 6:54 AM [facility] Blood Venipuncture / Unknown 04/02/2025 6:08 AM CDT 04/02/2025 6:17 AM [facility] us Rico Galvan MD CHEMISTRY ORDERABLES Final R esult [facility] CLIA # [id number] [address] [address] [place] [address] * XR PELVIS 1 OR 2 VW [...] lumbar spine. IMPRESSION: No acute osseous findings. us Rico Galvan MD DIAGNOSTIC IMAGING ORDERABLE S Final Result * MAGNESIUM LEVEL (03/29/2025 3:36 AM CDT) MAGNESIUM 2.0 1.6 - 2.4 mg/dL 03/29/2025 4:47 AM CDT [facility] Quri [facility] Blood Venipuncture / Unknown 03/29/2025 3:36 AM CDT 03/29/2025 4:10 AM CDT us Rico Galvan MD CHEMISTRY ORDERABLES Final R esult [facility] # [id number] [address] [facility] [place] [address] * CT GUIDE PERCUT DRAIN W CATH [...] along the planned trajectory. Next, a 5 Qatari Yueh needle/catheter combination was advanced using CT fluoroscopy as a guide to the target pelvic abscess and the needle was removed with the catheter remaining in place. Next, through the 5 Qatari catheter a 035 wire was advanced into the targeted fluid collection. Over the wire 5 Qatari catheter was removed and a 10 Fr [...] along the planned trajectory. Next, a 5 Qatari Yueh needle/catheter combination was advanced using CT fluoroscopy as a guide to the target pelvic abscess and the needle was removed with the catheter remaining in place. Next, through the 5 Qatari catheter a 035 wire was advanced into the targeted fluid collection. Over the wire 5 Qatari catheter was removed and a 10 Fr [...] W GRAM STAIN (03/28/2025 2:03 PM CDT) CULTURE 3 to 4+ or numerous Mixed enteric caitie(A) 03/31/2025 8:25 AM CDT [facility] GRAM STAIN No Polymorphonuclear WBC 03/31/2025 8:25 AM CDT [facility] GRAM STAIN Mixed caitie with no predominate morphology 03/31/2025 8:25 AM CDT [facility] Abscess ENTIRE PELVIS / Unknown Collection / Unknown 03/28/2025 2:03 PM CDT 03/28/2025 2:32 PM CDT Jas Gerard MD MICROBIOLOGY - GENERAL ORDERABLE S Final Result [facility] CLIA # [id number] [address] [place] [address] * (ABNORMAL) CBC WITHOUT DIFFERENTIAL (03/28/2025 5:12 AM CDT) [facility] WBC 8.4 4.8 - 10.8 K/uL 03/28/2025 6:19 AM CDT [facility] RBC 2.77(L) 4.20 - 5.40 M/uL 03/28/2025 6:19 AM CDT [facility] HEMOGLOBIN 8.4(L) 12.0 - 16.0 g/dL 03/28/2025 6:19 AM CDT [facility] HEMATOCRIT 27.2(L) 36.0 - 46.0 % 03/28/2025 6:19 AM CDT [facility] MCV 98.2 84.0 - 103.0 fL 03/28/2025 6:19 AM CDT [facility] MCH 30.3 27.0 - 34.0 pg 03/28/2025 6:19 AM CDT [facility] MCHC 30.9 30.0 - 35.0 g/dL 03/28/2025 6:19 AM CDT [facility] PLATELETS 385 140 - 440 K/uL 03/28/2025 6:19 AM CDT [facility] MPV 10.7 8.9 - 12.8 fL 03/28/2025 6:19 AM CDT [facility] RDW 14.2 11.0 - 14.5 % 03/28/2025 6:19 AM CDT [facility] RDW-STDEV 51.3 37.0 - 54.0 fL 03/28/2025 6:19 AM T [facility] Blood Venipuncture / Unknown 03/28/2025 5:12 AM CDT 03/28/2025 6:14 AM CDT Driss Dahl MD HEMATOLOGY ORDERABLES Final Result [facility] CLIA # [id number] [address] [place] [address] * (ABNORMAL) BASIC METABOLIC PANEL (03/28/2025 5:12 AM CDT) SODIUM 141 136 - 145 mmol/L 03/28/2025 6:48 AM [facility] POTASSIUM 3.6 3.5 - 5.1 mmol/L 03/28/2025 6:48 AM [facility] CHLORIDE 111(H) 98 - 107 mmol/L 03/28/2025 6:48 AM T [facility] CO2 22 22 - 29 mmol/L 03/28/2025 6:48 AM T [facility] CALCIUM 9.2 8.8 - 10.2 mg/dL 03/28/2025 6:48 AM T [facility] BUN 7(L) 8 - 23 mg/dL 03/28/2025 6:48 AM T [facility] CREATININE 0.62 0.51 - 0.95 mg/dL 03/28/2025 6:48 AM T [facility] Comment:The GFR result is no t clinically significant on patients <18 or >70 years of age. GLUCOSE 95 74 - 99 mg/dL 03/28/2025 6:48 AM CDT [facility] GFR >60 mL/min/1.7 3 sq meter 03/28/2025 6:48 AM CDT [facility] Comment:eGFR calculated with 2020 CKD-EPI equation. Vegetarian diet, extremely high or low muscle mass, and may affect results. Cystatin C with Glomerular Filtration Rate is a suitable alternative for these patients. 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: [id number] : 1940 Requested By: Order Number: [id number] Reading MD: Sen Tanner Measurements Intervals Honor Rate: 70 P: 67 MI: 154 QRS: -35 QRSD: 90 T: 14 QT: 406 QTc: 438 Interpretive Statements Normal sinus rhythm Left axis deviation Abnormal ECG Electronically Signed On 03-30-2025 18:29:13 CDT by Sen Tanner Procedure Note Sen Tanner MD - 03/30/[address] [address] Test Date: 2025-03-28 Pat Name: JAVIER STUBBS Department: 12 Room: 3258 02 Gender: Female 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: [id number] : 1940 Requested By: Order Number: [id number] Reading MD: Sen Tanner Measurements Intervals Honor Rate: 70 P: 67 MI: 154 QRS: -35 QRSD: 90 T: 14 QT: 406 QTc: 438 Interpretive Statements Normal sinus rhythm Left axis deviation Abnormal ECG Electronically Signed On 03-30-2025 18:29:13 CDT by Sen Tanner us Driss Dahl MD ECG ORDERABLES Final Result Performing Organization Address City/[facility] Co de Phone Number INTERFACE SYSTEM Refer to clinic/hospital department * EXTRA TUBE (URINE PRINCE) (03/28/2025 12:06 AM CDT) Urine URINE SPECIMEN OBTAINED BY CLEAN CATCH PROCEDURE / Unknown Collection / Unknown 03/28/2025 12:06 AM CDT 03/28/2025 12:12 AM CDT Driss Dahl MD URINE ORDERABLES Final Resul t Performing Organization Address City/[facility] Co de Phone Number [facility] CLIA # [id number] [address] [place] [address] * (ABNORMAL) URINALYSIS WITH REFLEX MICROSCOPIC (03/28/2025 12:06 AM CDT) COLOR UA Yellow Pale to Dark Yellow 03/28/2025 12:27 AM CDT [facility] CLARITY UA Clear Clear 03/28/2025 12:27 AM CDT [facility] SPECIFIC GRAVITY UA 1.025 1.003 - 1.035 03/28/2025 12:27 AM CDT [facility] PH UA 5.5 5.0 - 8.0 03/28/2025 12:27 AM CDT [facility] LEUKOCYTE ESTERASE UA Negative Negative 03/28/2025 12:27 AM T [facility] NITRITE UA Negative Negative 03/28/2025 12:27 AM [facility] PROTEIN UA 1+(A) Negative 03/28/2025 12:27 AM T [facility] GLUCOSE UA Negative Negative 03/28/2025 12:27 AM T [facility] KETONES UA Trace(A) Negative 03/28/2025 12:27 AM T [facility] UROBILINOGEN UA 0.2 <2.0 mg/dL 12:27 AM T [facility] BILIRUBIN UA Negative Negative 03/28/2025 12:27 AM [facility] BLOOD UA 2+(A) Negative 03/28/2025 12:27 AM [facility] WBC UA 0-2 0 - 2 /hpf 03/28/2025 12:27 AM T [facility] RBC UA 51-100(A) 0 - 2 /hpf 03/28/2025 12:27 AM [facility] BACTERIA UA 3+(A) Negative /hpf 03/28/2025 12:27 AM [facility] EPITHELIAL CELLS, URINE 0-5 0 - 5 /hpf 03/28/2025 12:27 AM [facility] HYALINE CAST 11-25(A) None Seen, 0-2 /lpf 03/28/2025 12:27 AM [facility] YEAST, [place] Present(A) Absent 03/28/2025 12:27 AM [facility] Urine URINE SPECIMEN OBTAINED BY CLEAN CATCH PROCEDURE / Unknown Collection / Unknown 03/28/2025 12:06 AM CDT 03/28/2025 12:12 AM CDT us Driss Dahl MD URINE ORDERABLES Final Resul t [facility] CLIA # [id number] [id number] [address] [address] * (ABNORMAL) URINE CULTURE (03/28/2025 12:06 AM CDT) CULTURE NAKASEOMYCES GLABRATUS(A) LORA MCG/ML 04/03/2025 3:33 PM CDT [facility] Comment: Sent to the [facility] See separate or scanned report. Urine URINE SPECIMEN OBTAINED BY CLEAN CATCH PROCEDURE / Unknown Collection / Unknown 03/28/2025 12:06 AM CDT 03/28/2025 12:12 AM CDT Narrative [facility] - 04/03/2025 3:33 PM CDT See scan for results from reference laboratory. Driss Dahl MD MICROBIOLOGY - GENERAL ORDER RAVEN Final Result Performing Organization Address City/[facility]/ZIP Co de Phone Number [facility] CLIA # [id number] [address] [place] [address] * (ABNORMAL) IRON, TIBC, AND PERCENT SATURATION (03/27/2025 8:24 PM CDT) IRON 42 37 - 145 ug/dL 03/28/2025 12:42 AM CDT [facility] TIBC 144(L) 250 - 450 ug/dL 03/28/2025 12:42 AM CDT [facility] IRON % SATURATION 29 15 - 60 % 03/28/2025 12:42 AM CDT [facility] Blood Venipuncture / Unknown 03/27/2025 8:24 PM CDT 03/27/2025 8:44 PM CDT Driss Dahl MD CHEMISTRY ORDERABLES Final R esult Performing Organization Address City/[facility]/ZIP Co de Phone Number [facility] CLIA # [id number] [address] [address] * PROTIME-INR (03/27/2025 8:24 PM CDT) Pathologist [facility] PROTIME 14.7 12.7 - 14.9 Seconds 03/27/2025 8:51 PM CDT [facility] INR 1.1 0.8 - 1.2 03/27/2025 8:51 PM CDT [facility] Blood Venipuncture / Unknown 03/27/2025 8:24 PM CDT 03/27/2025 8:39 PM CDT Narrative [facility] - 03/27/2025 8:51 PM CDT Expected Values for INR: DVT/PE Goal INR 2.5; range 2.0 - 3.0 Valve Replacement Tissue Goal INR 2.5; range 2.0 - 3.0 Valve Replacement Mechanical Goal INR 3.0; range 2.5 - 3.5 POST-OH Goal INR 2.5; range 2.0 - 3.0 or Goal INR 3.0; range 2.5 - 3.5 Atrial Fibrillation Goal INR 2.5; range 2.0 - 3.0 Ischemic Stroke Goal INR 2.5; range 2.0 - 3.0 Driss Dahl MD HEMATOLOGY ORDERABLES Final Result Performing Organization Address City/State/[facility] Co de Phone Number [facility] CLIA # [id number] [address] [address] * (ABNORMAL) FERRITIN (03/27/2025 8:24 PM CDT) [facility] FERRITIN 541.8(H) 13.0 - 150.0 ng/mL 03/28/2025 12:40 AM CDT [facility] Blood Venipuncture / Unknown 03/27/2025 8:24 PM CDT 03/27/2025 8:44 PM CDT Driss Dahl MD CHEMISTRY ORDERABLES Final R esult Performing Organization Address [facility]/ZIP Co de Phone Number [facility] [place] CLIA # [id number] [address] [facility] [place] [address] * TYPE AND SCREEN (03/27/2025 8:21 PM CDT) ABO GROUP B 03/27/2025 9:56 PM CDT [facility] [place] RH (D) TYPE Positive 03/27/2025 9:56 PM CDT [facility] [place] ANTIBODY SCREEN Negative 03/27/2025 9:56 PM CDT [facility] [place] Blood Venipuncture / Unknown 03/27/2025 8:21 PM CDT 03/27/2025 8:39 PM CDT Driss Dahl MD BLOOD BANK ORDERABLES Edited Result - Final Performing Organization Address [facility] Co de Phone Number [facility] [place] CLIA#[id number] [address] [place] [address], * XR CHEST PA OR AP 1 [...] MD DIAGNOSTIC IMAGING ORDERABLE S Final Result from Last 3 Months Insurance MEDICARE PART A AND B [facility] Advance Directives For more information, please contact: [phone] * Full Code (Latest Code Status on File) Date Activated Date Inactivated Comments 03/27/2025 7:16 PM 04/03/2025 4:08 AM
--- OUTSIDE RECORDS SUMMARY | 2025-04-03 20:15 | XMS_ITS | Patient Health Record ---
Author Organization [facility] Address [address] [place], [place] [id number] Care Team Providers Care Assignment Desk Editor Name Role Phone Sudheer Canchola DO Primary Care Provider Unavaildajuan Montes De Oca MD, Aneesh Unavailable [phone] Ozzie STEEN, Jas Unavailable Unavailable Trisha Miles Unavailable [phone] Allergies No Known Allergies Results Component Value [...] W/U Status Risk Notes Problem Solitary sacroiliitis (148309370) Sacroiliitis, not elsewhere classified (M46.1) Active confirmed Problem Lumbosacral spondylosis without myelopathy (78141581) Spondylosis without myelopathy or radiculopathy, lumbar region (M47.816) Active confirmed Problem High risk drug monitoring status (724727720) terminal make up operator (current) use of opiate analgesic (Z79.891) Active confirmed Problem Sleep disorder (20227586) Other sleep disorders (G47.8) Active confirmed Problem Chronic pain (32387694) Other chronic pain (G89.29) Active confirmed Problem Disorder of lumbar disc (861828042) Other intervertebral disc disorders, 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) Active confirmed Problem Radiculopathy (51799836) Radiculopathy, site unspecified (M54.10) Active confirmed Problem Post-laminectomy syndrome (10034783) Postlaminectomy syndrome, not elsewhere classified (M96.1) Active confirmed Problem Long-term current use of drug therapy (979125300) Other terminal make up operator (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 therapy (Z79.899) Active confirmed Problem Vertebrogenic low back pain (558285597953963 101) 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 Vital Signs Temperature 93.8 degrees Fahrenheit 02/18/2025 Oximetry 98 % 02/18/2025 Blood pressure diastolic 73 mm Hg 12/24/2024 Height 60 in 02/18/2025 Blood pressure systolic 150 mm Hg 12/24/2024 Weight 148.6 lbs 12/24/2024 BMI 29.02 kg/m2 12/24/2024 Encounters Encounter Location Date Provider Diagnosis [facility] [address] [place], [place] [id number] 08/11/2024 Trisha Sneed Vertebrogenic low ba ck pain M54.51 ; Spondylosis without myelopathy or radiculopathy, lumbar region M47.816 ; Sacroiliitis, not elsewhere classified M46.1 ; Other intervertebral disc disorders, lumbar region M51.86 ; Postlaminectomy syndrome, not elsewhere classified M96.1 ; Other sleep disorders G47.8 and Other terminal make up operator (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 therapy Z79.899 [facility] [address] [place], [place] [id number] 08/20/2024 Aneesh Montes De Oca Vertebrogenic low ba ck pain M54.51 ; Postlaminectomy syndrome, not elsewhere classified M96.1 ; Other sleep disorders G47.8 and Other custodial (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 therapy Z79.[address] [facility] [address] [id number] 09/03/2024 Aneesh Montes De Oca Vertebrogenic low ba ck pain M54.51 ; Other chronic pain G89.29 ; Postlaminectomy syndrome, not elsewhere classified M96.1 ; Other sleep disorders G47.8 and Other custodial (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 therapy Z79.899 [facility] [address] [place] [id number] 10/29/2024 Aneesh Montes De Oca Vertebrogenic low ba ck pain M54.51 ; Other chronic pain G89.29 ; Postlaminectomy syndrome, not elsewhere classified M96.1 and Other sleep disorders G47.8 [facility] [address] [place] [phone] 12/24/2024 Aneesh Montes De Oca Vertebrogenic low ba ck pain M54.51 ; Other chronic pain G89.29 ; Postlaminectomy syndrome, not elsewhere classified M96.1 and Other sleep disorders G47.8 [facility] [address] [place], [place] [phone] 02/18/2025 Aneesh Montes De Oca Vertebrogenic low ba ck pain M54.51 ; Other chronic pain G89.29 and Other sleep disorders G47.8 Assessments Encounter Date Diagnosis (ICD Code) Assessment Notes Treatment Notes Treatment Clinical Notes Section Notes 08/11/2024 Spondylosis without myelopathy or radiculopathy, lumbar region (ICD-10 - M47.816) Consider interventional treatment pending evaluation by Dr. Montes De Oca. 08/11/2024 Vertebrogenic low back pain (ICD-10 - M54.51) Plan to obtain 2023 MRI [facility]. Consider treatment options pending review of imaging studies and evaluation by Dr. Montes De Oca. 08/20/2024 Postlaminectomy syndrome, not elsewhere classified (ICD-10 [...] spine pain status post prior lumbar surgery. 10/29/2024 Other chronic pain (ICD-10 - G89.29) [...] status post prior lumbar surgery. 02/18/2025 Other chronic pain (ICD-10 - G89.29) [...] in relation to sleep for safety concerns. 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 Plan to continue oral opioid medication management. 08/11/2024 Sacroiliitis, not elsewhere classified (ICD-10 - M46.1) Consider interventional treatment pending evaluation by Dr. Montes De Oca. 10/29/2024 Postlaminectomy syndrome, not elsewhere classified (ICD-10 - M96.1) Consider SCS trial for patient's postlaminectomy syndrome and significant spinal stenosis. Verbal and written information provided patient on 08/20/24. Patient has deferred on this treatment option thus far. 09/03/2024 Postlaminectomy syndrome, not elsewhere classified (ICD-10 [...] not get very much sleep - for terminal make up operator duration). Patient has been counseled on the [...] L4-5 as described in the report. 08/20/2024 Other terminal make up operator (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 therapy (ICD-10 - Z79.899) Patient [...] as described in the report. 08/11/2024 Other intervertebral disc disorders, lumbar region (ICD-10 - M51.86) Consider interventional treatment pending evaluation by Dr. Montes De Oca. 09/03/2024 Other sleep disorders (ICD-10 - G47.8) Consider completion of a sleep study. Plan to restrict opioid usage in relation to sleep for safety concerns: patient has verbalized understanding to hold short-acting opioids within four hours of planned sleep (she stated that she does not get very much sleep - for custodial duration). 10/29/2024 Other sleep disorders (ICD-10 - G47.8) Consider a sleep study. Plan to restrict opioid usage in relation to sleep for safety concerns. 12/24/2024 Postlaminectomy syndrome, not elsewhere classified (ICD-10 - M96.1) Consider SCS trial for patient's postlaminectomy syndrome and significant spinal stenosis. Verbal and written information provided patient on 08/20/24. Patient has deferred on this treatment option thus far. 12/24/2024 Other sleep disorders (ICD-10 - G47.8) Consider a sleep study. Plan to restrict opioid usage in relation to sleep for safety concerns. 09/03/2024 Other custodial (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 therapy (ICD-10 - Z79.899) Patient has a total daily MED of 40. This places the patient in the [facility] moderate risk category for total daily opioid usage. Patient has refused offer of a Narcan nasal spray prescription. 2022 opioid (OUD) risk tool score = 0. This places the patient in the low risk category. 08/11/2024 Postlaminectomy syndrome, not elsewhere classified (ICD-10 - M96.1) Plan to obtain Operative Note from [facility]. Consider interventional treatment pending evaluation by Dr. Montes De Oca. 08/11/2024 Other sleep disorders (ICD-10 - G47.8) Consider completion of a sleep study. 08/11/2024 Other terminal make up operator (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 therapy (ICD-10 - Z79.899) Patient [...] closing due to Dr. Montes De Oca's mcfp; see scanned document. Terminal prescriptions were given [...] Medicare Part B Claims Department [address] [address] [place] [address] [id number] Gita Stubbs Self - patient is the insured [employer] [address] [place] [phone] Gita Stubbs Self - patient is the [...] and restless legs (and some hypersomnia - [place] score = 6) Surgical History Surgery Date(Month/Year) Left carpal tunnel release at [facility], 1970s Knee replacement, left, performed in [facility] 2016 Knee replacement, right, performed in [place], [place] Bilateral L3-L4 laminotomies / facetectomies, performed at [facility] by Dr. Brooke, 03/16/14 Right carpal tunnel release at [facility] by eTjas Burkett, 2022 Hospitalization History Reason Date(Month/Year) Confusion and UTI, treated [facility], 05/13/24
--- OUTSIDE RECORDS SUMMARY | 2025-04-03 20:15 | XMS_ITS | Encounter Summary ---
Author Organization [facility] Address [address] [place] [address] Care Team Providers Care Truss Assembler Name Role Phone Unavailable Primary Care Provider Unavailabl e Encounter Details Date Type Department Care Team (Late Contact Info) Description 03/31/2025 External Device Data STL ABSTRACTION Provider, Abstract NO ADDRESS ON FILE Social History Tobacco Use Types Packs/Day Years Used Date Smoking Tobacco: Never Smokeless Tobacco: Never Alcohol Use Standard Drinks/Week Comments Never 0 [...] Description 04/22/2025 9:45 AM CDT Office Visit [facility] Gen Spec [place]urg [place] [facility] [address] [place] [address] Tucker Marroquin MD [address] [place] [phone] documented as of this encounter Visit Diagnoses Not on filedocumented in this encounter
--- OUTSIDE RECORDS SUMMARY | 2025-04-03 20:15 | XMS_ITS | Encounter Summary ---
Author Organization [facility] Address [address] [place] [address] Care Team Providers Care Flake Drier Name Role Phone Unavailable Primary Care Provider [...] Description 04/22/2025 9:45 AM CDT Office Visit [facility] Gen Spec Surg [place] [facility] [address] [place] [address] Tucker Marroquin MD [address] [place] [phone] documented as of this encounter Visit Diagnoses Not on filedocumented in this encounter
--- OUTSIDE RECORDS SUMMARY | 2025-04-03 20:16 | XMS_ITS | Encounter Summary ---
Author Organization [facility] Address [address] [place] [address] Care Team Providers Care Filleter Name Role Phone Unavailable Primary Care Provider [...] Description 04/22/2025 9:45 AM CDT Office Visit [facility] Gen Spec Surg [place] [facility] [address] [place] [address] Tucker Marroquin MD [address] [place] [phone] documented as of this encounter Visit Diagnoses Not on filedocumented in this encounter
--- OUTSIDE RECORDS SUMMARY | 2025-04-03 20:16 | XMS_ITS | Encounter Summary ---
Author Organization [facility] Address [address] [place] [address] Care Team Providers Care Product Development Director Name Role Phone Unavailable Primary Care Provider Unavailabl e Encounter Details Date Type Department Care Team (Late st Contact Info) Description 04/03/2025 Orders Only [facility] [address] [place] [address] Provider, Abstract NO ADDRESS ON FILE Social [...] Description 04/22/2025 9:45 AM CDT Office Visit [facility] Gen Spec Surg [place] [address] [place] [phone] Tucker Marroquin MD [facility] [address] [phone] documented as of this encounter Procedures Procedure Name Priority Date/Time Associated Diagnosis Comments COMPREHENSIVE METABOLIC PANEL Routine 03/26/2025 12:55 PM CDT COMPREHENSIVE METABOLIC PANEL Routine 03/25/2025 12:52 PM CDT COMPREHENSIVE METABOLIC PANEL Routine 03/24/2025 12:53 PM CDT COMPREHENSIVE METABOLIC PANEL Routine 03/23/2025 12:54 PM CDT COMPREHENSIVE METABOLIC PANEL Routine 03/22/2025 12:56 PM CDT documented in this encounter Results * COMPREHENSIVE METABOLIC PANEL (03/26/2025 12:55 PM CDT) Blood us Abstract Provider CHEMISTRY ORDERABLES Final Res ult * COMPREHENSIVE METABOLIC PANEL (03/25/2025 12:52 PM CDT) Blood us Abstract Provider CHEMISTRY ORDERABLES Final Res ult * COMPREHENSIVE METABOLIC PANEL (03/24/2025 12:53 PM CDT) Blood us Abstract Provider CHEMISTRY ORDERABLES Final Res ult * COMPREHENSIVE METABOLIC PANEL (03/23/2025 12:54 PM CDT) Blood us Abstract Provider CHEMISTRY ORDERABLES Final Res ult * COMPREHENSIVE METABOLIC PANEL (03/22/2025 12:56 PM CDT) Blood us Abstract Provider CHEMISTRY ORDERABLES Final Res ult documented in this encounter Visit Diagnoses Not on filedocumented in this encounter
--- NOTE | 2025-04-03 20:41 | ED_ITS ---
HPI - Skin/Abscess/Foreign Bdy 2 General: Chief complaint: Skin/Abscess/Foreign Body Stated complaint: Discharge from [place] [facility] Time Seen by Provider: 04/03/25 19:58 History of Present Illness: Patient is an 85-year-old female with recent discharge today from [facility] with Stewart drain in left posterior superior buttocks. After patient was at the long term, nurse noted some drainage around the Stewart, attempted to get a hold emergency to no avail, nurse at facility was nervous according to relay from staff, and sent patient here. Patient has no complaints at time of my interview. She has not had any fevers, or baseline change. She keeps saying I did not fall, why they bring me here, I did not fall. She has no complaints of pain or otherwise Associated symptoms: Deny chills, fever(s), nausea or vomiting Related Data Home Medications ?Medication ?Instructions ?Recorded ?Confirmed ibuprofen 200 mg tablet (Motrin IB) 200 mg PO BID PRN Pain 10/28/19 03/22/25 Previous Rx's ?Medication ?Instructions ?Recorded acyclovir 5 % topical ointment See Rx Instructions .Ro estrellita 07/14/24 .COMPLEX #15 grams ferrous sulfate 325 mg (65 mg 325 mg PO DAILY #90 tabs 10/30/24 iron) tablet hydrocodone 10 mg-acetaminophen 1 tab PO BID PRN pain 1 day #1 tab 01/19/25 325 mg tablet prednisone 10 mg tablet See Rx Instructions .Route 0 02/24/25 .COMPLEX #90 tabs wheeled walker, with brakes, seat #1 ea 02/24/25 sulfamethoxazole 800 1 tab PO BID infection 7 day s #14 02/26/25 mg-trimethoprim 160 mg tablet tabs (Bactrim DS) pantoprazole 20 mg tablet,delayed See Rx Instructions .Route 03/03/25 release .COMPLEX #60 tabs clopidogrel 75 mg tablet 75 mg PO DAILY #90 tabs 02/22 10/18 Allergies Allergy/AdvReac Type Severity Reaction Status Date / Time No Known Allergies Allergy Verified 02/24/25 09:28 Review of Systems 2 General: Reports: 10 or more systems reviewed and unremarkable except in HPI and below Const: Denies: fever(s) or chills Eyes: Denies: change in vision or blurry vision ENMT: Denies: throat pain Card: Denies: chest pain or palpitations Resp: Denies: dyspnea or productive cough GI: Denies: abdominal pain, nausea or vomiting : Denies: flank pain or difficulty voiding Musc: Denies: neck pain or back pain Skin/Breast: Denies: rash or pruritus Neuro: Denies: headache(s) or numbness in extremities Psych: Denies: anxiety or depression PFS ED 2 PFSH: Medical History (Updated 04/03/25 @ 21:08 by EDD Granger) 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 Chronic narcotic use Restless leg syndrome Chronic left shoulder pain Arthritis Back Pain Doing well on current meds DDD (degenerative disc disease), lumbar Degenerative lumbar spinal stenosis Acquired spondylolisthesis Cervical disc disorder with myelopathy, unspecified cervical region Chronic neck and back pain Pain of right upper extremity Degenerative joint disease of both lower legs Radiculopathy, site unspecified Surgical History History of total left knee replacement Status post carpal tunnel release bilateral in 1979, left 2022 History of total right knee replacement Family History Other CAD (coronary artery disease) Hypertension Social History Smoking and tobacco/nicotine status: never used tobacco/nicotine Second hand smoke exposure: No Alcohol intake: never Substance/Drug Use: never 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 BACK IMAGE (FEMALE): 1. olamide drain Extremity: COMMON NORMALS: capillary refill normal NARRATIVE EXTREMITY EXAM: In boots bilat Course 2 Vital Signs: Vital signs: Vital Signs Temperature 98.4 F 04/03/25 20:05 Pulse Rate 98 04/03/25 22:28 Respiratory Rate 18 04/03/25 20:05 Blood Pressure 111/80 04/03/25 22:28 Pulse Oximetry 99 04/03/25 22:28 MDM - Skin/Abscess/Foreign Bdy Medicial Decision Making Patient is a 85-year-old female that was released from [facility] today with Olamide drain to left upper buttocks for sigmoid abscess drainage by colorectal specialist. Patient has follow-up on 04/22. Discussed the case with Dr. Jean on-call for Dr. Marroquin, the recommends early follow-up next week, wound care, and education. This was a scant amount around the Stewart, which appears to be consistent with Stewart drain tube. There was no other red flags. Patient is awake, alert, and without concerns. Discussed with patient's niece, if further issues arise typically with this, to contact [facility], or go to [facility] to specialists not available here. Patient's niece and patient stated understanding. No radiology studies performed this visit Discharge Plan Discharge Patient Disposition: Home Clinical Impression: Fistula, Encounter for medical screening examination Condition: Stable Prescriptions: No Action ibuprofen [Motrin IB] 200 mg tablet 200 mg PO BID PRN (Reason: Pain) (DME) wheeled walker, with brakes, seat See Rx Instructions .Route .MEDSUPPLY Qty: 1 0RF Rx Instructions: As directed prednisone 10 mg tablet See Rx Instructions .ROUTE .COMPLEX Qty: 90 1RF Dose Instruction: TAKE 2&1/2 tABLETS BY MOUTH EVERY DAY FOR arthritis pain or inflammation Rx Instructions: TAKE 2&1/2 tABLETS BY MOUTH EVERY DAY FOR arthritis pain or inflammation hydrocodone-acetaminophen 10-325 mg tablet 1 tab PO BID PRN (Reason: pain) 1 Days Qty: 1 0RF acyclovir 5 % ointment See Rx Instructions .ROUTE .COMPLEX Qty: 15 3RF Dose Instruction: APPLY TO THE AFFECTED AREA(S) six times a DAY FOR COLD SORES FOR SEVEN DAYS Rx Instructions: APPLY TO THE AFFECTED AREA(S) six times a DAY FOR COLD SORES FOR SEVEN DAYS sulfamethoxazole-trimethoprim [Bactrim DS] 800-160 mg tablet 1 tab PO BID 7 Days Qty: 14 0RF pantoprazole 20 mg tablet,delayed release (DR/EC) See Rx Instructions .ROUTE .COMPLEX Qty: 60 11RF Dose Instruction: TAKE ONE TABLET BY MOUTH TWICE DAILY *take 30 minutes before breakfast and 30 minutes before dinner ON empty stomach* Rx Instructions: TAKE ONE TABLET BY MOUTH TWICE DAILY *take 30 minutes before breakfast and 30 minutes before dinner ON empty stomach* clopidogrel 75 mg tablet 75 mg PO DAILY Qty: 90 3RF ferrous sulfate 325 mg (65 mg iron) tablet 325 mg PO DAILY Qty: 90 0RF Discharge Orders: Discharge ED (Routine); Ordered 04/03/25 Ordered By: Callie Vernon Referrals: Sudheer Canchola, [Primary Care Provider, Family Practice] Discharge Diet: Usual diet Discharge Activity: Resume usual activity Patient Instructions: Patient Portal & Dao Instructions Activity Restrictions/Additional Instructions: Patient needs close follow-up with surgeon. Call on Sunday for early next week appointment follow-up. Do not wait until 04/22 These types of tubes do leak and need daily wound changing and containment. Please coordinate with surgeon at [facility] if there are issues If there are future issues, send patient to [facility], where patient's primary specialist is [facility] surgeon encourages to contact them. I discussed with Dr. Jean on-call [facility]. Follow-up with Dr. Marroquin early next week according to Dr. Jean Return to ED for fever greater than 100.4, change in vital signs, redness to this area. It is important to follow-up with your primary care physician. Call next week for appointment follow-up Print Language: Albanian Coding Level of Care Code ED Wood Setter for Rosamaria Johns
[2025-04-03 22:28] VITALS: BP 111/80; PULSE 98; O2SAT 99
--- NOTE | 2025-04-03 22:33 | PC.NURSE ---
This nurse attempted to call [facility] to provide pt report 4 times. Unable to get answer, will continue to try to provide discharge instructions.
== END 2025-04-03 22:33 | disposition home or self-care (01) ==
PROVIDERS: Emergency Provider Physician Assistant; PCP Family Medicine
DX: T81.83XA Persistent postprocedural fistula, initial encounter (principal); Z79.02 Long term (current) use of antithrombotics/antiplatelets; X58.XXXA Exposure to other specified factors, initial encounter
CPT/HCPCS: 99281

== ENCOUNTER 2025-04-04 21:37 | Emergency (ER) | payer MEDICARE, OTHER, SELFPAY ==
--- OUTSIDE RECORDS SUMMARY | 2025-03-27 18:59 | XMS_ITS | Encounter Summary ---
Author Organization [facility] Address [address] [place] [address] Care Team Providers Care Gemologist Name Role Phone Unavailable Primary Care Provider Unavailabl e Reason for Referral * Eval and Treat (8-30 Days) - Open Specialty Diagnoses / Procedures Referred By Gerry velasco Referred To Contact Diagnoses Sigmoid diverticulitis Procedures [place] OFFICE/OUTPATIENT ESTABLISHED MOD MDM 30 MIN [place] OFFICE/OUTPATIENT NEW MODERATE MDM 45 MINUTES Tucker Marroquin MD [address] [place] [id number] Phone: tel: fax: Referral ID Status Reason Start Date Expiration Date Visits Re quested Visits Authorized [id number] Open 04/02/2025 04/02/2026 1 1 Reason for Visit * Auth/Cert (Routine) Specialty Diagnoses / Procedures Referred By Contaarti t Referred To Contact Internal Medicine Diagnoses ABDOMINAL PAIN Garth Azar MD [address] [place] [address] Phone: tel: fax: [facility] 3D Medical Telemetry [address] [place] [address] Phone: tel: fax: Referral ID Status Reason Start Date Expiration Date Visits Re quested Visits Authorized [id number] 1 1 Encounter Details Date Type Department Care Team (Latest Contact Info) Description 03/27/2025 6:59 PM CDT - 04/03/2025 12:02 AM CDT Hospital Encounter [facility] 3D Medical Telemetry [address] [place] [address] Garth Azar MD [address] [place] [address] Driss Dahl MD [address] [place] [address] Rico Galvan MD [address] [place] [address] Sigmoid diverticulitis Discharge Disposition: [facility](SNF) with Medicare Certification in Anticipation of Skilled Care Social History Tobacco Use Types Packs/Day Years Used Date Smoking Tobacco: Never Smokeless Tobacco: Never Tobacco Cessation:Counseling Given: No Alcohol Use Standard Drinks/Week Comments Never 0 (1 standard drink = 0.6 oz pur e alcohol) Feeling Safe Answer Date Recorded Are you in a relationship wi th someone who hurts you emotionally and/or physically? No 03/27/2025 Food Insecurity Answer Date Recorded Patient needs follow up regardin 03/27/2025 Transportation Needs Answer Date Record ed Patient needs follow up regardin 03/27/2025 Utility Needs Answer Date Recorded Patient needs follow up regardin 03/27/2025 Comments Unknown Sex and Gender Information Value Date Recorded Sex Assigned at Female 06/08/2024 4:38 PM CDT Legal Sex Female 8:49 AM CDT Gender Identity Female 06/08/2024 4:38 PM CDT Sexual Orientation Straight 06/08/2024 4: 38 PM CDT documented as of this encounter Last Filed Vital Signs Vital Sign Reading Time Taken Comments Blood Pressure 145/71 04/02/2025 7:51 PM CDT Pulse 103 04/02/2025 7:51 PM CDT Temperature 36.6 C (97.8 F) 04/02/2025 7:51 PM CDT Respiratory Rate 18 04/02/2025 7:51 PM CDT Oxygen Saturation 98% 04/02/2025 7:51 PM CDT Inhaled Oxygen Concentration - - Weight 69.8 kg (153 lb 14.4 oz) 04/02/2025 9:00 AM CDT Height 152.4 cm (5') 03/27/2025 7:00 PM CDT Body Mass Index 30.06 03/27/2025 7:00 PM CDT documented in this encounter Discharge Summaries * Rico Galvan MD - 04/02/2025 11:10 AM CDT [facility] Hospitalist- Discharge Summary Javier Stubbs 85 y.o. female 1940 CSN: [id number] Date of Admission: 03/27/2025 Date of Discharge: 04/02/2025 LOS: 6 days Discharging Physician: Rico Galvan MD PCP: No primary care provider on file. Code Status at Discharge: Full Code Dispo: SNF Labs and studies from this hospitalization needing follow up: CBC and Comprehensive Metabolic Panel (CMP) in 1 week Pending Labs Order Current Status URINE CULTURE Preliminary result Abnormal Imaging: Results for orders placed during the hospital encounter of 03/27/25 CT GUIDE PERCUT DRAIN W CATH Narrative PROCEDURES: CT guided pelvic abscess drain placement. Moderate conscious sedation. HISTORY: Pericolonic pelvic abscess OPERATORS: Dr. Jas Gerard HAND HYGIENE: Soap and water. [employer]. CONSENT: The procedures as well as their risks, benefits, and alternatives were discussed in detail with the patient, and the patient given the opportunity to ask any questions. Written informed consent was then obtained. PROCEDURE DETAILS: Patient was placed on the CT table and limited noncontrast CT was performed of the pelvis to assess the trajectory for the percutaneous drain placement. A dimitrios on the skin was made using the noncontrast CT as a guide. Preprocedural timeout was performed. Versed and fentanyl were given IV by a radiology nurse who is a trained independent observer dedicated to patient monitoring during moderate sedation under my supervision. Local anesthetic with 2% lidocaine was infiltrated into the skin along the planned trajectory. Next, a 5 Spanish Yueh needle/catheter combination was advanced using CT fluoroscopy as a guide to the target pelvic abscess and the needle was removed with the catheter remaining in place. Next, through the 5 Spanish catheter a 035 wire was advanced into the targeted fluid collection. Over the wire 5 Spanish catheter was removed and a 10 Fr locking loop pigtail drain was advanced over the wire in expected distance to the fluid collection based on the CT. The inner stylette and wire were removed. The loop was locked. 30 ml of purulent fluid was aspirated from the fluid collection. The new drain was secured to the skin with sutures and placed to drainage. A sterile dressing was applied. Limited noncontrast CT scan immediately post procedure was performed to assess for any immediate complication. The patient tolerated the procedure well with no immediate complications and was in stable condition at the completion of the procedure. ESTIMATED BLOOD LOSS: 1 mL Impression : CT-guided pelvic abscess drain placement. I, Dr. Jas Gerard, certify that I was present for the entire procedure. Follow up with PCP: Follow-up: You must follow up with No primary care provider on file. in 3-5 days Follow up with Consultants: With colorectal surgery in 2 weeks Discharge Condition: stable Primary Discharge Diagnosis: Sigmoid diverticulitis Other Active medical issues also addressed during this admission: Active Hospital Problems Diagnosis Protein-calorie malnutrition, moderate Sigmoid diverticulitis Abscess of sigmoid colon due to diverticulitis Lumbosacral spondylosis without myelopathy Indwelling Rollins catheter present Pressure injury of sacral region, stage 1 Osteoarthritis of multiple joints Gastroesophageal reflux disease without esophagitis Anemia Resolved Hospital Problems No resolved problems to display. HOSPITAL COURSE: Please see H and P for full details on admission, symptoms and initial care. Javier Stubbs, a 85 y.o. female with PMH significant for arthritis on high-dose steroids, lumbar radiculopathy, indwelling Rollins, GERD, anemia Patient presented to [facility] on 03/22 for generalized weakness, fatigue and abdominal discomfort. She was STEMI activated initially due to some EKG changes and coronary angiogram without any obstructive CAD. LVEF was 60 to 65%. CT abdomen/pelvis was done which was suggestive of acute sigmoid diverticulitis with concern for contained perforation and fluid collection with some gas measuring 6X 4.2 cm. Patient was given vancomycin and Zosyn. Patient was transferred here after discussion with IR per documentation. Patient was started on Rocephin and Flagyl on presentation here. IR wasconsulted for CT- guided drain placement 03/29 -reviewed CT results from outside facility, consulted surgery and discussed with Dr. La. Patient underwent drain placement left pelvic region by IR, purulent drainage with some concern for possible stool?. Surgical team following 03/30 -complains of aches all over more so in bilateral hip area. Check x-ray although likely relatedto her arthritis. 03/31 -sitting up in chair, feels better. Will need outpatient follow-up with colorectal surgery. Cultures with mixed caitie. Can switch to oral Augmentin to complete total 2-week course. 04/01 -patient feeling well, therapies recommending SNF. Case management to work on placement 04/02 -being discharged to SNF in a stable condition. Continue oral Augmentin for 10 days, follow-upwith colorectal surgery in 2 weeks. Decision regarding timing of drain removal per colorectal surgery on follow-up. CBC and CMP in 1 week with results to PCP PCP COMMUNICATION : No primary care provider on file. via [employer] communication MEDICATION CHANGES (significant): Please see below MEDICATION RECONCILIATION: Current and discharge medications reviewed and reconciled: Yes Consultants: IP CONSULT TO WOUND/SKIN CARE TEAM IP CONSULT TO INTERVENTIONAL RADIOLOGY IP CONSULT TO IV TEAM IP CONSULT TO GENERAL SURGERY Procedures performed: DISCHARGE MEDICATIONS: Medication List START taking these medications amoxicillin-clavulanate 875-125 mg tablet Commonly known as: AUGMENTIN Take 1 Tablet by mouth every 12 hours for 10 days. Signed by: Dr. Kylah Galvan Refills: 0 naloxone 4 mg/spray Lynn, Non-Aerosol Commonly known as: NARCAN EMERGENCY USE ONLY: Administer 1 spray (4 mg) in one nostril one time. May repeat in alternating nostrils every 2-3 min until responsive or EMS arrives. Signed by: Dr. Kylah Galvan Refills: 0 saccharomyces boulardii 250 mg Capsule Commonly known as: FLORASTOR Take 1 Capsule (250 mg) by mouth 2 times daily for 14 days. Signed by: Dr. Kylah Galvan Refills: 0 zinc OXIDE-cod liver oil 40 % Paste Commonly known as: Desitin Apply to affected area 2 times daily. Signed by: Dr. Kylah Galvan Refills: 0 CONTINUE taking these medications acyclovir 5 % Cream Commonly known as: ZOVIRAX Apply to affected area 5 times daily. Refills: 0 clopidogreL 75 mg Tablet Commonly known as: PLAVIX Take 75 mg by mouth. Refills: 0 HYDROcodone-acetaminophen 10-325 mg Tablet Commonly known as: NORCO Take 1 Tablet by mouth every 4 hours as needed for Pain. Refills: 0 ibuprofen 200 mg tablet Commonly known as: MOTRIN Take 200 mg by mouth every 6 hours as needed for Pain, Mild. Refills: 0 pantoprazole 20 mg Tablet, Delayed Release (E.C.) Commonly known as: PROTONIX Take 20 mg by mouth daily. Refills: 0 predniSONE 10 mg tablet Commonly known as: DELTASONE Take 2.5 Tablets by mouth daily with breakfast. Refills: 0 Where to Get Your Medications Information about where to get these medications is not yet available Ask your nurse or doctor about these medications amoxicillin-clavulanate 875-125 mg tablet naloxone 4 mg/spray Lynn, Non-Aerosol saccharomyces boulardii 250 mg Capsule zinc OXIDE-cod liver oil 40 % Paste No future appointments. Activity level: up as tolerated Diet: DIET GENERAL Effective Now Wound Care: Not Applicable DISCHARGE EXAM: BP (!) 152/79 (BP Location: Left arm, Patient Position (BP): Supine) Pulse 97 Temp 98.5 ??F (36.9 ??C) (Temporal) Resp 18 Ht 5' (1.524 m) Wt 69.8 kg (153 lb 14.1 oz) LMP (LMP Unknown) Comment: post-metapausal SpO2 97% BMI 30.05 kg/m?? Last documented weight: Weight: 69.8 kg (153 lb 14.1 oz) (04/01/25 0900) General: Alert and oriented Neurologic: No gross focal deficits HEENT: atraumatic, Normocephalic, hard of hearing Lungs: clear to auscultation bilaterally anteriorly Heart: normal rate, normal S1-S2 Abdomen: Soft, drain in place with posterior access to left pelvic region, purulent drainage -decreasing Total time spent on discharge services today including examining and educating the patient and available family members, writing prescriptions and reviewing the discharge medication list, documentingthis discharge summary and coordinating outpatient care and follow up required >30 minutes. documented in this encounter Discharge Instructions * Discharge Instructions* Allie Menard RN - 03/30/2025 8:08 PM CDT Post-Diverticulitis Discharge Instructions If you feel you are experiencing a medical emergency - call 911 or present immediately to the nearest Emergency Department. Please follow up with Dr. Marroquin in 2-3 weeks, please call his office at to schedule your appointment. KEEP IN TOUCH WITH Remy Please consider using [email or web address] to communicate with Dr. Marroquin's office. Messages are received in real time by the nurse as fast, or faster, than phone messages, and you may expect a prompt reply. Typically follow up appointments are scheduled as in person visits, but if you feel that your appointment could be handled over the phone or by video chat please contact our office and we can make those arrangements. The [employer] aurelio can also allow you to send inquiries directly to us as well as submit pictures of wounds, etc. Often the aurelio is the most efficient way to each our healthcare team. Ifyou don't have it already please search your aurelio store for [employer] DIET Return to your usual diet. It is normal not to have an appetite right after a bout of diverticulitis. As long as you are tolerating liquids and staying hydrated, your desire for solid food will return in a few days. Historically patients with a history of diverticulitis have been instructed to avoid nuts, seeds, popcorn, etc. Recent medical research has not found these instructions to be effective at preventing future attacks. You have no dietary restrictions per se, but if you find particular foods to aggravate your symptoms, those may be avoided. DRAIN CARE (If you are discharged with a drain) DRAIN CARE If you are discharged with a drain, please empty your drain and record the output as instructed. You might need to empty the drain two to three times a day (or more), depending on the amount of output. To empty, lift the pop top on the collection bulb, and squeeze the fluid into a measuring cup with incremental markings (fl oz or ml). Record in your chart the amount of drainage, along with the date time of the measurement. Once empty, squeeze the bulb until flat and put the pop top back in place to resume suction. You may remove the dressing around the drain and shower with the drain in place. If you notice any drainage around the tubing this is not a problem. You can apply a piece of gauze and tape over the site and change as needed. The drain will generally be removed in the office when the output is less than 30 ml for more than 48 hours (or at your doctor's discretion). Accurately reporting your output will help the doctor's decision to pull or leave your drain in place. Make sure to bring your drain output record to every po stoperative office visit. You may see blood clots or tissue in the drain, this is not uncommon and typically does not represent a problem. BOWEL FUNCTION Pain medication can cause constipation. To avoid abdominal discomfort, take Metamucil 1 TBSP by mouth every day starting two days after discharge if no bowel movement (BM) has occured. If this is noteffective, take Milk of Magnesia 1 TBSP every 8 hours until BM occurs. Call if the above does not produce results. ACTIVITY Avoid laying in bed, walk around! - Do not lift, push, machine assembler for puller over 10 pounds May return to work/school when you feel like you can adequately and safely do your job Do not drive while taking pain medication. WHEN TO CALL Dr. Marroquin @ If fever > 101.5 F OR shaking chills. Persistent nausea & vomiting that last more than a few hours and unable to keep liquids down. Worsening of abdominal pain Shortness of breath, leg(s) painful when walking or standing, leg(s) swelling or discolored. Severe constipation. AFTER HOURS Prescriptions are not refilled after business hours. If you are in need of additional medications, call the office on the next business day at [phone]. There is a physician on-call after hours for emergency reasons only. DO NOT SMOKE AND AVOID SECOND-HAND SMOKE. Tobacco smoke can delay the healing process by decreasingthe oxygen supply to your wound, & may increase your risk of infection. Smoking irritates the breathing passages and increases the risk of pneumonia, bronchitis, asthma and risk of blood clots. [facility] Jail Discharge Instructions Discharge & Transfer patient to: Name of Facility: [facility] Transfer care to Attending Provider at Jail Facility Symptoms/Diagnosis: Sigmoid diverticulitis Procedures Performed, if any: Labs and studies from this hospitalization needing follow up: CBC, CMP in 1 week Follow up PCP Please schedule follow up appointment with facility physician or PCP/ No primary care provider on file., Please schedule follow up appointment in one week. Follow up consultants With Colorectal Surgery in 2 weeks Additional problems: Active Hospital Problems Diagnosis Protein-calorie malnutrition, moderate Sigmoid diverticulitis Abscess of sigmoid colon due to diverticulitis Lumbosacral spondylosis without myelopathy Indwelling Rollins catheter present Pressure injury of sacral region, stage 1 Osteoarthritis of multiple joints Gastroesophageal reflux disease without esophagitis Anemia Resolved Hospital Problems No resolved problems to display. Level of Care: [x] Skilled [] Maintenance [] Rehab Rehab potential: fair Code Status: Full Code Labs: Recent Labs 04/02/25 0608 WBC 13.3* HGB 9.1* HCT 28.8* PLT 548* Recent Labs 04/02/25 0608 NA 140 K 4.0 CL 109* CO2 23 CA 10.0 BUN 9 CREAT 0.65 GLUCOSE 82 Recent Labs 04/02/25 06 TOTALPROTEIN 5.2* ALBUMIN 2.7* BILITOTAL 0.5 ALKPHOS 160* AST 14 ALT 19 Activity level: up as tolerated Clinical Care/Ancillary services: Physical therapy evaluate and treat: Yes Occupational therapy evaluate and treat: Yes Speech therapy evaluate and treat: No Respiratory Treatment/Oxygen: Not Applicable DIET: DIET GENERAL Effective Now Wound Care: {[id number]::Not Applicable} Other Comments: See above for drain care instructions. Follow up in the Emergency Room For any recurrence or worsening of admission concerns, chest pain, palpitations, shortness of breath, coughing blood, nausea, vomiting, diarrhea, pain, fever, chills, bleeding, bloody or tarry stools, change to urine or bowel output, Contact hospitalist office [phone] for questions if patients are discharged by [facility]. Contact [facility] Transfer Hub at [phone] if patient needs a direct admission. Tell us about the patient and how we can help them. If we can provide the service that is needed, we will do the rest of the work. ALLIE MENARD RN 04/02/2025, 11:25 AM documented in this encounter Medications at Time of Discharge amoxicillin-clav ulanate (AUGMENTIN) 875-125 mg tablet Take 1 Tablet by mouth every 12 hours for 10 days. 04/02/2025 5 saccharomyces boulardii (FLORASTOR) 250 mg Capsule Take 1 Capsule (250 mg) by mouth 2 times daily for 14 days. 04/02/2025 5 zinc OXIDE-cod liver oil (Desitin) 40 % Paste Apply to affected area 2 times daily. 04/02/2025 naloxone (NARCAN) 4 mg/spray Lynn, Non-Aerosol EMERGENCY USE ONLY: Administer 1 spray (4 mg) in one nostril one time. May repeat in alternating nostrils every 2-3 min until responsive or EMS arrives. 04/02/2025 HYDROcodone-acet aminophen (NORCO) 10-325 mg Tablet Take 1 Tablet by mouth every 4 hours as needed for Pain. clopidogreL (PLAVIX) 75 mg Tablet Take 75 mg by mouth. acyclovir (ZOVIRAX) 5 % Cream Apply to affected area 5 times daily. ibuprofen (MOTRIN) 200 mg tablet Take 200 mg by mouth every 6 hours as needed for Pain, Mild. pantoprazole (PROTONIX) 20 mg Tablet, Delayed Release (E.C.) Take 20 mg by mouth daily. predniSONE (DELTASONE) 10 mg tablet Take 2.5 Tablets by mouth daily with breakfast. documented as of this encounter Progress Notes * Thelma Son RN - 04/02/2025 11:41 AM CDT Report called to [facility]. * Rico Galvan MD - 04/01/2025 12:34 PM CDT Images from the original note were not included. Your life is our life's work [facility] Hospitalist/Hospital Medicine Progress Note LOS: 5 days Room/Bed: [facility]8/02 Patient name: Javier Stubbs Date of : 1940 HOSPITAL COURSE SUMMARY: Javier Stubbs, a 85 y.o. female with PMH significant for arthritis on high-dose steroids, lumbar radiculopathy, indwelling Rollins, GERD, anemia Patient presented to [facility] on 03/22 for generalized weakness, fatigue and abdominal discomfort. She was STEMI activated initially due to some EKG changes and coronary angiogram without any obstructive CAD. LVEF was 60 to 65%. CT abdomen/pelvis was done which was suggestive of acute sigmoid diverticulitis with concern for contained perforation and fluid collection with some gas measuring 6X 4.2 cm. Patient was given vancomycin and Zosyn. Patient was transferred here after discussion with IR per documentation. Patient was started on Rocephin and Flagyl on presentation here. IR wasconsulted for CT- guided drain placement 03/29 -reviewed CT results from outside facility, consulted surgery and discussed with Dr. La. Patient underwent drain placement left pelvic region by IR, purulent drainage with some concern for possible stool?. Surgical team following 03/30 -complains of aches all over more so in bilateral hip area. Check x-ray although likely relatedto her arthritis. 03/31 -sitting up in chair, feels better. Will need outpatient follow-up with colorectal surgery. Cultures with mixed caitie. Can switch to oral Augmentin to complete total 2-week course. 04/01 -patient feeling well, therapies recommending SNF. Case management to work on placement Consultants: IP CONSULT TO WOUND/SKIN CARE TEAM IP CONSULT TO INTERVENTIONAL RADIOLOGY IP CONSULT TO IV TEAM IP CONSULT TO GENERAL SURGERY SUBJECTIVE: Patient seen and examined at bedside. Overall feels better, son at bedside ROS: 12 systems reviewed, negative except above OBJECTIVE: Temp (24hrs), Av ??F (36.7 ??C), Min:97.4 ??F (36.3 ??C), Max:98.3 ??F (36.8 ??C) BP (!) 147/89 (BP Location: Left arm, Patient Position (BP): Supine) Pulse (!) 104 Temp 98.2 ??F (36.8 ??C) (Temporal) Resp 18 Ht 5' (1.524 m) Wt 70.1 kg (154 lb 8.7 oz) LMP (LMP Unknown)Comment: post-metapausal SpO2 97% BMI 30.18 kg/m?? Intake/Output Summary (Last 24 hours) at 04/01/2025 1234 Last data filed at 03/31/2025 1518 Gross per 24 hour Intake 100 ml Output 10 ml Net 90 ml Last documented weight: Weight: 70.1 kg (154 lb 8.7 oz) (03/30/25 0458) EXAM: General: Alert and oriented Neurologic: No gross focal deficits HEENT: atraumatic, Normocephalic, hard of hearing Lungs: clear to auscultation bilaterally anteriorly Heart: normal rate, normal S1-S2 Abdomen: Soft, drain in place with posterior access to left pelvic region, purulent drainage although improved LABORATORY: No results for input(s): WBC , HGB , HCT , PLT in the last 72 hours. Recent Labs 03/30/25 0109 NA 140 K 4.1 CL 109* CO2 21* CA 9.7 BUN 9 CREAT 0.58 GLUCOSE 137* Recent Labs 03/30/25 0109 TOTALPROTEIN 5.3* ALBUMIN 2.9* BILITOTAL 0.3 ALKPHOS 134* AST 10 ALT 24 No results for input(s): INR , PT in the last 72 hours. Invalid input(s): PTT No results for input(s): BASETROP , 2HRTROP , DELTA , 6HRTROP in the last 72 hours. Diagnostic testing reviewed by me: All diagnostic tests last 24 hours Medications were reviewed by me. Current Facility-Administered Medications: amoxicillin-clavulanate (AUGMENTIN) 875-125 mg per tablet 1 Tablet, 1 Tablet, Oral, every 12 hours (2 times daily), Rico Galvan MD, 1 Tablet at 04/01/25 1203 predniSONE (DELTASONE) tablet 20 mg, 20 mg, Oral, daily WITH breakfast, Rico Galvan MD, 20 mg at 04/01/25 1202 balsam violetta-castor oiL (VENELEX) topical ointment, , Topical, daily, Rico Galvan MD, Given at 04/01/25 1203 HYDROcodone-acetaminophen (NORCO) 5-325 mg per tablet 2 Tablet, 2 Tablet, Oral, every 4 hours PRN, Rico Galvan MD, 2 Tablet at 03/31/25 2040 zinc OXIDE-cod liver oil (DESITIN) 40 % topical paste, , Topical, BID, Rico Galvan MD, Givenat 04/01/25 1204 sodium chloride flush injection 10 mL, 10 mL, IV, every 12 hours (2 times daily), Driss Dahl MD, 10 mL at 04/01/25 1203 sodium chloride flush injection 10 mL, 10 mL, IV, see admin instructions, Driss Dahl MD sodium chloride 0.9 % flush bag 25 mL, 25 mL, IV, see admin instructions, Driss Dahl MD dextrose 5 % in water 250 mL flush bag 25 mL, 25 mL, IV, see admin instructions, Driss Dahl MD naloxone (NARCAN) 0.4 mg/mL injection 0.1 mg, 0.1 mg, IV, see admin instructions, Driss Dahl MD ondansetron (ZOFRAN) 4 mg/2 mL injection 4 mg, 4 mg, IV, every 6 hours PRN, Driss Dahl MD heparin injection 5,000 Units, 5,000 Units, subCUT, every 8 hours, Driss Dahl MD, 5,000 Units at 04/01/25 0451 saccharomyces boulardii (FLORASTOR) capsule 250 mg, 250 mg, Oral, BID, Driss Dahl MD, 250 mg at 04/01/25 1202 [Held by Provider] clopidogreL (PLAVIX) tablet 75 mg, 75 mg, Oral, daily, Driss Dahl MD pantoprazole (PROTONIX) tablet 20 mg, 20 mg, Oral, daily, Driss Dahl MD, 20 mg at 04/01/25 1203 Primary discharge diagnosis: Sigmoid diverticulitis Other active medical issues also addressed during this admission: Active Hospital Problems Diagnosis Protein-calorie malnutrition, moderate Sigmoid diverticulitis Abscess of sigmoid colon due to diverticulitis Lumbosacral spondylosis without myelopathy Indwelling Rollins catheter present Pressure injury of sacral region, stage 1 Osteoarthritis of multiple joints Gastroesophageal reflux disease without esophagitis Anemia Resolved Hospital Problems No resolved problems to display. ASSESSMENT AND PLAN: Acute sigmoid diverticulitis with concern for contained perforation and abscess CT results reviewed from outside facility Patient was discussed with interventional radiology here and was plan for IR guided drain placement Patient underwent IR guided drain placement, purulent drainage Colorectal surgery following the patient and plan for outpatient follow-up in 2 to 3 weeks Final cultures with mixed caitie, continue Augmentin to complete 2-week course Will need outpatient follow-up with Dr. Marroquin in 2 weeks Chronic arthritis Continue prednisone Will need slow weaning outpatient, PCP has been managing this prior to presentation Stage I sacral ulcer, present on presentation Skin care ? Chronic normocytic anemia Outpatient follow-up, no overt bleeding Candiduria Suspect colonization, catheter has been removed Impaired ADLs PT/OT recommending SNF Patient would definitely benefit from ongoing therapies Case management to work on SNF GERD Continue PPI DVT prophylaxis Subcutaneous heparin Code status: Full Code Outpatient follow up: PCP, colorectal surgery Anticipated Disposition Location: [facility] Timeframe: Medically ready Criteria: Safe disposition available Patient's understanding of illness: Fair Primary family contact: Son at bedside MDM complexity: [] Mild [x] Moderate [] High Rico Galvan MD 04/01/2025, 12:34 PM * Rico Galvan MD - 03/31/2025 11:09 AM CDT Images from the original note were not included. Your life is our life's work [facility] Hospitalist/Hospital Medicine Progress Note LOS: 4 days Room/Bed: [facility]8/02 Patient name: Javier Stubbs Date of : 1940 HOSPITAL COURSE SUMMARY: Javier Stubbs, a 85 y.o. female with PMH significant for arthritis on high-dose steroids, lumbar radiculopathy, indwelling Rollins, GERD, anemia Patient presented to [facility] on 03/22 for generalized weakness, fatigue and abdominal discomfort. She was STEMI activated initially due to some EKG changes and coronary angiogram without any obstructive CAD. LVEF was 60 to 65%. CT abdomen/pelvis was done which was suggestive of acute sigmoid diverticulitis with concern for contained perforation and fluid collection with some gas measuring 6X 4.2 cm. Patient was given vancomycin and Zosyn. Patient was transferred here after discussion with IR per documentation. Patient was started on Rocephin and Flagyl on presentation here. IR wasconsulted for CT- guided drain placement 03/29 -reviewed CT results from outside facility, consulted surgery and discussed with Dr. La. Patient underwent drain placement left pelvic region by IR, purulent drainage with some concern for possible stool?. Surgical team following 03/30 -complains of aches all over more so in bilateral hip area. Check x-ray although likely related to her arthritis. 03/31 -sitting up in chair, feels better. Will need outpatient follow-up with colorectal surgery. Cultures with mixed caitie. Can switch to oral Augmentin to complete total 2-week course. Consultants: IP CONSULT TO WOUND/SKIN CARE TEAM IP CONSULT TO INTERVENTIONAL RADIOLOGY IP CONSULT TO IV TEAM IP CONSULT TO GENERAL SURGERY SUBJECTIVE: Patient seen and examined at bedside. Sitting up in chair. Feels better today ROS: 12 systems reviewed, negative except above OBJECTIVE: Temp (24hrs), Av.6 ??F (36.4 ??C), Min:97 ??F (36.1 ??C), Max:98.1 ??F (36.7 ??C) BP (!) 142/79 (BP Location: Right arm, Patient Position (BP): Lying left side) Pulse (!) 101 Temp 97.7 ??F (36.5 ??C) (Temporal) Resp 18 Ht 5' (1.524 m) Wt 70.1 kg (154 lb 8.7 oz) LMP (LMP Unknown) Comment: post-metapausal SpO2 97% BMI 30.18 kg/m?? Intake/Output Summary (Last 24 hours) at 03/31/2025 1109 Last data filed at 03/31/2025 0847 Gross per 24 hour Intake 140 ml Output 5 ml Net 135 ml Last documented weight: Weight: 70.1 kg (154 lb 8.7 oz) (03/30/25 4859) EXAM: General: Alert and oriented Neurologic: No gross focal deficits HEENT: atraumatic, Normocephalic, hard of hearing Lungs: clear to auscultation bilaterally anteriorly Heart: normal rate, normal S1-S2 Abdomen: Soft, drain in place with posterior access to left pelvic region, purulent drainage LABORATORY: Recent Labs 03/29/25 0336 WBC 10.4 HGB 9.6* HCT 30.5* PLT 497* Recent Labs 03/29/25 0336 03/30/25 0109 NA 141 140 K 3.3* 4.1 CL 107 109* CO2 23 21* CA 9.6 9.7 BUN 9 9 CREAT 0.62 0.58 GLUCOSE 113* 137* Recent Labs 03/29/25 0336 03/30/25 0109 TOTALPROTEIN 5.4* 5.3* ALBUMIN 2.9* 2.9* BILITOTAL 0.3 0.3 ALKPHOS 124* 134* AST 14 10 ALT 26 24 No results for input(s): INR , PT in the last 72 hours. Invalid input(s): PTT No results for input(s): BASETROP , 2HRTROP , DELTA , 6HRTROP in the last 72 hours. Diagnostic testing reviewed by me: All diagnostic tests last 24 hours Medications were reviewed by me. Current Facility-Administered Medications: predniSONE (DELTASONE) tablet 20 mg, 20 mg, Oral, daily WITH breakfast, Rico Galvan MD, 20 mg at 03/31/25 0924 balsam violetta-castor oiL (VENELEX) topical ointment, , Topical, daily, Rico Galvan MD, Given at 03/30/25 1432 HYDROcodone-acetaminophen (NORCO) 5-325 mg per tablet 2 Tablet, 2 Tablet, Oral, every 4 hours PRN, Rico Galvan MD, 2 Tablet at 03/31/25 0426 zinc OXIDE-cod liver oil (DESITIN) 40 % topical paste, , Topical, BID, Rico Galvan MD, Givenat 03/31/25 0924 sodium chloride flush injection 10 mL, 10 mL, IV, every 12 hours (2 times daily), Driss Dahl MD, 10 mL at 03/31/25 0924 sodium chloride flush injection 10 mL, 10 mL, IV, see admin instructions, Driss Dahl MD sodium chloride 0.9 % flush bag 25 mL, 25 mL, IV, see admin instructions, Driss Dahl MD dextrose 5 % in water 250 mL flush bag 25 mL, 25 mL, IV, see admin instructions, Driss Dahl MD naloxone (NARCAN) 0.4 mg/mL injection 0.1 mg, 0.1 mg, IV, see admin instructions, Driss Dahl MD ondansetron (ZOFRAN) 4 mg/2 mL injection 4 mg, 4 mg, IV, every 6 hours PRN, Driss Dahl MD heparin injection 5,000 Units, 5,000 Units, subCUT, every 8 hours, Driss Dahl MD, 5,000 Units at 03/31/25 0426 cefTRIAXone (ROCEPHIN) 2,000 mg in sodium chloride 0.9% 50 mL IVPB (MBP), 2,000 mg, IV, every 24 hours (daily), Driss Dahl MD, Stopped at 03/30/25 2244 metroNIDAZOLE (FLAGYL) tablet 500 mg, 500 mg, Oral, every 8 hours, Driss Dahl MD, 500 mg at03/31/25 0426 saccharomyces boulardii (FLORASTOR) capsule 250 mg, 250 mg, Oral, BID, Driss Dahl MD, 250 mg at 03/31/25 0924 [Held by Provider] clopidogreL (PLAVIX) tablet 75 mg, 75 mg, Oral, daily, Driss Dahl MD pantoprazole (PROTONIX) tablet 20 mg, 20 mg, Oral, daily, Driss Dahl MD, 20 mg at 03/31/25 0924 [DISCONTINUED] predniSONE (DELTASONE) tablet 25 mg, 25 mg, Oral, daily WITH breakfast, Driss Dahl MD, 25 mg at 03/30/25 0842 Primary discharge diagnosis: Sigmoid diverticulitis Other active medical issues also addressed during this admission: Active Hospital Problems Diagnosis Protein-calorie malnutrition, moderate Sigmoid diverticulitis Abscess of sigmoid colon due to diverticulitis Lumbosacral spondylosis without myelopathy Indwelling Rollins catheter present Pressure injury of sacral region, stage 1 Osteoarthritis of multiple joints Gastroesophageal reflux disease without esophagitis Anemia Resolved Hospital Problems No resolved problems to display. ASSESSMENT AND PLAN: Acute sigmoid diverticulitis with concern for contained perforation and abscess CT results reviewed from outside facility Patient was discussed with interventional radiology here and was plan for IR guided drain placement Patient underwent IR guided drain placement, purulent drainage Colorectal surgery following the patient and plan for outpatient follow-up in 2 to 3 weeks Final cultures with mixed caitie, changing antibiotic to Augmentin to complete 2- week course Will need outpatient follow-up with Dr. Soto in 2 weeks Chronic arthritis Decreasing prednisone to 20 mg daily for now Will need slow weaning outpatient, PCP has been managing this prior to presentation Stage I sacral ulcer, present on presentation Skin care ? Chronic normocytic anemia Outpatient follow-up, no overt bleeding Candiduria Suspect colonization, catheter has been removed Impaired ADLs PT/OT evaluation May benefit from SNF GERD Continue PPI DVT prophylaxis Subcutaneous heparin Code status: Full Code Outpatient follow up: PCP, colorectal surgery Anticipated Disposition Location: Possibly home health care versus SNF Timeframe: next 1 day Criteria: Continuous improvement of symptoms, tolerating oral antibiotics Patient's understanding of illness: Fair Primary family contact: None at bedside today MDM complexity: [] Mild [x] Moderate [] High Rico Galvan MD 03/31/2025, 11:09 AM * Dina Michaels, RD - 03/31/2025 9:50 AM CDT The patient was evaluated by the dietitian and was found to have Malnutrition Nutrition Diagnosis: Moderate protein-calorie malnutrition (03/31/25899). The malnutrition pathway is recommended and the assessment via ASPEN criteria and nutrition recommendations from the dietitian are as follows: ASPEN Malnutrition Assessment and Findings Subcutaneous Fat Loss Assessment: Moderate fat loss (03/31/25899) Muscle Wasting Assessment: Severe (03/31/25899) Edema: Normal contour with a barely perceptible pit (no findings) (03/31/25899) Hand Slat Basket Maker Machine: Unable to assess (03/31/25899) Percentage of Energy: < or equal to 75% for > or equal to 1 month (severe- chronic) (03/31/25899) Percentage of Weight Loss: Other (see comments) (unable to confirm) (03/31/25899) Malnutrition Decision Malnutrition Nutrition Diagnosis: Moderate protein-calorie malnutrition (03/31/25899) BMI BMI (Calculated): (!) 30.18 (03/30/25 1475) Malnutrition Recommendations Nutrition Interventions: Encourage adequate intake;Encourage fluids;Monitor weight trends;Vitamin/Mineral supplementation (pt declined ONS) (03/31/25899) Cosigned by Rico Galvan MD at 03/31/2025 10:51 AM CDT * Dina Michaels RD - 03/31/2025 9:45 AM CDT Reason For Nutrition Assessment: Pressure Ulcer/Skin, Nutrition Diagnosis Malnutrition Nutrition Diagnosis: Moderate protein-calorie malnutrition (03/31/25899) In the context of: Chronic Illness Problem: Malnutrition (03/31/25899) Etiology: Inadequate protein, energy, nutrient intake;Chronic illness;Other (comment) (possible confusion) (03/31/25899) Signs/Symptoms: Fat loss;Muscle wasting;Intake history/diet recall;SGA results (03/31/25899) Malnutrition Impact: Reduced oral intake, Delayed recovery, Poor wound healing, Increased readmission risk, Increased hospitalization length, and Increased risk of infection Interventions/Recommendations: Encourage adequate PO intake Add daily MVI Pt declined ONS Nutrition Interventions: Encourage adequate intake;Encourage fluids;Monitor weight trends;Vitamin/Mineral supplementation (pt declined ONS) (03/31/25899) Goals: 75-100% of meals, No N/V, Stable weight, and Tolerate nutrition source Monitoring/Evaluation: PO intake and tolerance, stool output, weight, labs, and skin integrity Nutrition Discharge Plan: Encourage high protein/high calorie diet. See below for full assessment Assessment 85 y.o.female admitted with Sigmoid diverticulitis. PMH includes lumbar radiculopathy, osteoarthritis. Subjective: Pt seen this am and noted to have consumed ~10% of her breakfast tray. Pt reporting no appetite and reports no appetite for awhile . Pt continued to repeat she has lost 47lbs however perchart review cannot confirm this. Pt is noted with significant physical losses, meets criteria for m alnutrition. Pt declined ONS as well as Prabhakar for reported DTIs. Continue to encourage PO intake. Food and Nutrition Related History: Pt not able to describe much reports many foods she can't eat but cannot describe. Pt denies allergies. Weight changes: Pt is reporting 47lb wt loss in the past few months. Not able to confirm as wt in May 2024 is listed as 160lbs. Subjective Global Assessment: Weight: During the past 2 weeks the patient's weight has: Decreased (per pt) (03/31/25899) Food Intake: Compared to normal intake, over the past month the patient's intake has been: Less than usual (03/31/25899) Less than usual: Little solid food (03/31/25899) Symptoms: Patient reports the following problems that have kept them from eating enough during the past 2 weeks: No appetite, did not feel like eating;Fatigue (03/31/25899) Activities & Function: Over the past month the patient generally rates their activity as: : Very low energy, spend most of the day in bed or chair (03/31/25899) Total score = SGA Score : 11 (03/31/25899) Nutrition Focused Exam Physical Findings- Summary: Malnutrition Nutrition Diagnosis: Moderate protein-calorie malnutrition (03/31/25899) Orbital: Slightly dark circles, somewhat hollow (moderate) (03/31/25899) Facial cheeks (buccal pads): Slightly depressed inward (mild) (03/31/25899) Biceps and triceps: Some space between fingers (moderate) (03/31/25899) Ribs - lower back, mid axillary line: Unable to assess (03/31/25899) Subcutaneous Fat Loss Assessment: Moderate fat loss (03/31/25899) Temporal: Flattened, slight but increasing depression (moderate) (03/31/25899) Clavicle: Protruding/prominent bone (severe) (03/31/25899) Shoulder (deltoid muscle): Shoulders not square, acromion process visible (moderate) (03/31/25899) Scapula: Unable to assess (03/31/25899) Interosseous: Slightly depressed (moderate) (03/31/25899) Thigh (quadriceps muscle): Slight depressions along inner thigh, thin (moderate) (03/31/25899) Knee: Knee bone is noticeable, little muscle mass around it (moderate) (03/31/25899) Calf (gastrocnemius muscle): Definite tissue reduction. Thin, flat, no muscle definition (severe) (03/31/25899) Muscle Wasting Assessment: Severe (03/31/25899) Edema: Normal contour with a barely perceptible pit (no findings) (03/31/25899) Hand Slat Basket Maker Machine: Unable to assess (03/31/25899) Percentage of Energy: < or equal to 75% for > or equal to 1 month (severe- chronic) (03/31/25899) Percentage of Weight Loss: Other (see comments) (unable to confirm) (03/31/25899) Estimated Needs: Estimated Energy Target: 9511-6221 (03/31/25899) Estimated Protein Target: 55-65 (03/31/25899) Estimated Fluid Target : [id number] (03/31/25899) Nutrition Energy Formula: Calories per kilogram (03/31/25899) Weight Used for Formula: Adjusted body weight (51kg) (03/31/25899) Clinical Data: Height: 5' (152.4 cm) (03/27/251899) [place] body weight: 45.5 kg (100 lb 4.9 oz) Adjusted ideal body weight: 55.3 kg (122 lb) Body mass index is 30.18 kg/m??. Admission:Weight: 66.7 kg (147 lb 0.8 oz) (03/27/251899) Weight Method: Actual (03/27/251899) Current:Weight: 70.1 kg (154 lb 8.7 oz) (03/30/25 0458) Wt Readings from Last 8 Encounters: 03/30/25 70.1 kg (154 lb 8.7 oz) 06/05/24 72.6 kg (160 lb) Labs Recent Labs 03/29/25 0336 03/30/25 0109 GLUCOSE 113* 137* BUN 9 9 CREAT 0.62 0.58 GFR >60 >60 NA 141 140 K 3.3* 4.1 CO2 23 21* ANIONGAP 11 10 CA 9.6 9.7 MG 2.0 -- ALBUMIN 2.9* 2.9* ALKPHOS 124* 134* ALT 26 24 AST 14 10 BILITOTAL 0.3 0.3 Lab Results Component Value Date/Time MG 2.0 03/29/2025 03:36 AM Current Diet and Intake: DIET GENERAL Effective Now Food/Meal: NPO;Lunch (03/30/25 1350),Intake (%): (!) 30% (03/30/25 0758) , Skin: Pressure Injury 03/28/25 Left: heel Deep Tissue Injury-Wound Length-cm.: 3.5 cm. (03/28/25905) Pressure Injury 03/28/25 Right: heel Deep Tissue Injury-Wound Length-cm.: 1 cm. (03/28/25905) Pressure Injury 03/28/25 Right: coccyx Deep Tissue Injury-Wound Length-cm.: 2 cm. (03/28/25905) Pressure Injury 03/28/25 Left: heel Deep Tissue Injury-Wound Width-cm.: 3.5 cm. (03/28/25905) Pressure Injury 03/28/25 Right: heel Deep Tissue Injury-Wound Width-cm.: 1.8 cm. (03/28/25905) Pressure Injury 03/28/25 Right: coccyx Deep Tissue Injury-Wound Width-cm.: 1.5 cm. (03/28/25905) Pressure Injury 03/28/25 Left: heel Deep Tissue Injury-Wound Depth-cm.: 0 cm. (03/28/25905) Pressure Injury 03/28/25 Right: heel Deep Tissue Injury-Wound Depth-cm.: 0 cm. (03/28/25905) Pressure Injury 03/28/25 Right: coccyx Deep Tissue Injury-Wound Depth-cm.: 0 cm. (03/28/25905) Neno Score: 13 (03/30/25 1910) Gastrointestinal: Last Bowel Movement (mm/dd/yyyy): 03/31/25 (03/31/25 0848) Stool Consistency - Reference [place] Stool Chart: unformed - (type 6/7) (03/31/25847) Bowel Sounds: All Quadrants: hypoactive (03/31/25 0310) Allergies: No Known Allergies No past medical history on file. Time spent:Consultation Time (mins): 25 mins (03/31/25 09) * Marla Das, Occupational Therapist - 03/30/2025 2:[address] [facility] - Therapy Services 3K Ph. Acute Occupational Therapy Evaluation 03/30/2025 Room: [address] [place] [address] Name: Javier Stubbs Age: 85 y.o. Patient Class: Inpatient Date of : 1940 Insurance: Payor: MEDICARE / Plan: MEDICARE PART A AND B / Product Type: Medicare / Prior to OT session thorough chart review completed, including prior OT notes as applicable. Consent to evaluate provided by patient, family, and nurse Date of admission: 03/27/2025 SUBJECTIVE Occupational Profile Information provided by: patient, family, and chart Prior Level of Function ADLs: modified independent using AD PRN IADLs: Pt's son reports she often is able to assist with completion of IADL tasks until this admission Patient does not drive Functional mobility: modified independent using 4WW Falls: None Home Information Employment/daily routine: Pt enjoys sewing and doing crafts Self-care assist available at home: Pt lives with her son who is able to provide 24/7 assistance. Home environment: 1-level home No steps to enter Tub/shower Durable medical equipment already in home: Walkers: 2WW and 4WW Shower chair Grab bars Hand-held shower head Additional Information Patient/family statement/goal(s): return to PLOF Comments: Pt agreeable to participate in therapy. Pain: Refer to flowsheet for documentation of pain and interventions. OBJECTIVE Cognition Level of alertness: alert and slightly confused Orientation: oriented to person and place Command following: fair; limited by slow processing, decreased problem solving, decreased insight into deficits, decreased attention, and hearing deficits Safety awareness: fair; limited by slow processing, decreased problem solving, decreased insight into deficits, decreased attention, and hearing deficits Memory: unable to assess Vision: wears glasses at baseline UE Function UE Assessment Right Left ROM Active: WFL Active: WFL Strength WFL; 4-/5 WFL; 4/5 All additional UE assessments (including tone, coordination, sensation, and edema) not indicated ordeemed WFL. Occupational Performance Activities of Daily Living Feeding: NT; anticipate independent for [id number] excursion Grooming: supervision seated in chair to brush hair. Upper extremity dressing: minimal assistance seated in chair to don/doff gown around backside Lower extremity dressing: moderate assistance seated in chair to don/doff socks. Pt able to touch ankl Toileting: NT; anticipate maximal assistance in standing for clothing management and adequate santosh-care using WWR Toilet transfer: moderate assistance sit < > stand from chair during simulated toilet transfer using BUE support and rollator. All tasks not tested with anticipated assist levels are based on observed tasks and movement patterns. Functional Mobility All mobility completed with gait belt, non-skid socks, and personal rollator Sit to stand: moderate assistance from chair using BUE support and rollator. Sitting balance: supervision for static tasks and dynamic tasks using UE support and no LOB observed Standing balance: moderate assistance progressing to maximal assistance for static tasks using rollator. VC and TC given to engage arms and to bring COG over EULALIA Patient required verbal, visual, and tactile cues for attention to task, safety awareness while completing functional mobility and ADL tasks, sequencing, command following, and problem solving. [facility] AM-PAC Daily Activity How much help from another person does the patient currently need? Score 1. Putting on and taking off regular lower body clothing? 2 - A lot (max to mod assist) 2. Bathing (including washing, rinsing, drying)? 3 - A little (supervision to min assist) 3. Toileting, which includes using toilet, bedpan or urinal? 2 - A lot (max to mod assist) 4. Putting on and taking off regular upper body clothing? 3 - A little (supervision to min assist) 5. Taking care of personal grooming such as brushing teeth? 3 - A little (supervision to min assist) 6. Eating meals? 4 - None (independent) Total score 17/24 0-19 indicates likely facility discharge 19-24 indicates likely community discharge *Scores determined based on patient report, observation or professional expertise* Vitals Current O2 requirement: room air Vital signs stable throughout. Precautions Patient precautions: fall Patient bracing: none Weight bearing: no restrictions ASSESSMENT & PLAN Evaluation Details Javier Stubbs is a 85 y.o. female referred for OT following admission for sigmoid diverticulitis. Additional pertinent diagnoses and past medical history related to this hospital stay are present in physician H&P and physician daily notes. OT evaluation: Low complexity Assessment Patient is currently functioning below her prior level of function. Patient presents with acute functional deficits including: Functional balance Safety awareness Decreased functional strength Decreased endurance Pain These deficits impact patient ability to complete: Functional mobility Bathing Toileting Dressing Personal hygiene/grooming Home management Patient would benefit from continued skilled OT services in order to increase occupational performance through modification and remediation approaches such as ADL training, balance training, endurance training, strength training, functional transfer training, home safety education, patient education, caregiver education, and equipment training Plan During acute hospitalization, recommend medium frequency treatment (3-5 times/week). Current plan of care to continue until goals met or patient discharges from facility Anticipate ongoing OT treatment sessions with specific focus on OOB ADLs, functional transfers, functional ambulation, and safety awareness Recommendations Based on OT assessment of patient's ability to complete self care tasks, AM-PAC Daily Activity Score, functional cognition and safety awareness, potential for improvement, available home support, participation in therapeutic intervention, and tolerance for activity, anticipated discharge disposition, once medically ready: residential facility (03/30/251410). Rationale: Patient needs daily (weekday) skilled OT services. Anticipate tolerance is limited for intensive or adapted intensive rehab program. Safety concerns present. * The final discharge locationis determined through physician, case management, and patient/caregiver input along with insurance authorization of skilled services when appropriate. Plan of care and discharge recommendations shared with patient, rn home care, and PT OT recommended DME and AE upon discharge: No new DME recommended (03/30/251410) No new additional adaptive equipment necessary (03/30/251410) Education provided to patient and family regarding OT recommendations and plan of care, walker management, safety awareness, and goals for therapy Education response: verbalized understanding and would benefit from reinforcement Nursing Staff Mobility Recommendations Recommended daily activity during admission: toileting on BSC, up to chair for meals, and assist x 2 Disposition At start of session, patient found seated in chair At end of session, patient left seated in chair, call light in reach, phone in reach, patient instructed not to get up without staff assistance, son present in room, and staff notified of patient location/events of session Further treatment notes and therapeutic goals can be found in Care Plan Notes. If the patient discharges from facility before another therapy visit, this shall serve as therapy discharge summary. Thank you for this referral, MARLA DAS, Occupational Therapist * Mirtha Miller, Physical Therapist - 03/30/2025 1:[address] [facility] - Therapy Services 3K Ph. Acute Physical Therapy Evaluation 03/30/2025 Room: [address] [place] [address] Name: Javier Stubbs Age: 85 y.o. 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 Son in roomduring session and therapist suspects he would not be able to assist physically Patient/Family Goals Statement: none verbalized Pain: Refer to Doc Flowsheet for documented pain levels. Consent To Treatment Given By: Patient, Family, and Nurse Safety Awareness Orientation: Person and Place Command Following: good Safety Awareness: Good Precautions Patient Precautions: Fall Risk Bracing/Orthotics: none Weight Bearing: No Restrictions Objective Information/Examination Muscle Tone: Normal Coordination: Abnormal: slow processing to move B LE for transfer to chair. Strength: Right LE: Generalized weakness noted: limiting balance, limiting functional mobility , limiting mobility device use, limiting tolerance to activity Left LE: Generalized weakness noted: limiting balance, limiting functional mobility , limiting mobility device use, limiting tolerance to activity Functional Mobility: Supine to sit: moderate assistance with [employer] to sit upright Sit to stand: maximal assistance for safety, balance and weakness Bed to chair: moderate assistance for increased time to perform, fatigue and safety Gait Training: Did not perform due to weakness Patient required verbal cues energy conservation Balance: Sitting: Normal Standing: Abnormal: mod A for transfer Vitals Patient on room air Vital signs stable throughout session [employer] AM-PAC Basic Mobility How much help from another person does the patient currently need? Score 1. Turning from your back to your side while in a flat bed without using bedrails? 2 - A lot (max to mod assist) 2. Moving from lying on your back to sitting on the side of a flat bed without using bedrails? 2 - A lot (max to mod assist) 3. Moving to and from a bed to a chair (including a wheelchair)? 2 - A lot (max to mod assist) 4. Standing up from a chair using your arms (e.g., wheelchair, or bedside chair)? 2 - A lot (max tomod assist) 5. Walking in hospital room? 2 - A lot (max to mod assist) 6. Climbing 3-5 steps with a railing? 1 - Total assist or cannot do at all Total score 08/17 0-16 - indicates likely facility discharge 17-24 indicates likely community discharge * scores determined based on patient report, observation or professional expertise Assessment/Plan Javier Stubbs is a 85 y.o. female is referred for physical therapy. Based on objective findings above, the patient presents with the following impairments: balance deficits, decreased activity tolerance, decreased strength, gait disturbance, medical complexity, pain, and risk for falls which impacts return to prior level of function and independence. Patient is currently functioning below her prior level of function. Pt was agreeable to therapy this date and wanted to sit up in the chair Pt does seem to either be disoriented or TE-MOAK with questions Plan will include but is not limited to: Gait Training, Transfer Training, Patient/Family Education, Home & Safety Instruction, Balance Training, Neuromuscular Re-education, Equipment Training, and Functional Strengthening. Specific focus for next treatment session: standing tolerance and balance, gait. PT Evaluation: low complexity Recommendations During acute hospitalization, recommend low frequency treatment (1-3 times per week). Current plan of care to continue until goals met or patient discharges from facility Functional Prognosis: Based on prior level of function and deficits, anticipate good progress towards goals. Based on PT assessment of and/or progress with physical function, -[facility] Basic Mobility score, potential for improvement, available home support, participation in therapeutic intervention, tolerance for activity, and safety , anticipated discharge disposition once medically ready: residential facility (03/30/25 1306). Pt needs daily (weekday) skilled PT services. Anticipate tolerance for an intensive program may be limited and extended recovery time needed. * The final discharge location is determined through physician, case management, and patient/caregiver input along with insurance authorization of skilled services when appropriate Plan of care and/or discharge recommendations shared with: Patient and Nurse PT Recommended DME: No new DME recommended (03/30/25 1306). to be determined at next level of care Daily activity recommendations: Up with 2 assist Recommendations for referral to another service: Care Management Education/Training Provided Education provided: functional mobility and plan of care Learner, method of education, and response to learning listed in Education tab in Epic. Disposition At start of session, patient found lying in bed At end of session, patient left seated in chair, call light in reach, patient instructed to not getup without assistance from staff, and son present in room Current Diagnoses/Past Medical History Pertinent diagnoses and past medical history related to this hospital stay are present in physicianH&P and physician daily notes. Prior to PT session a thorough chart review was completed including prior PT notes as applicable. Further treatment notes and therapeutic goals can be found in Care Plan Notes. If the patient discharges from the facility before another therapy visit, this shall serve as the therapy discharge summary. Thank you for this referral, Mirtha Miller, Physical Therapist * Rico Galvan MD - 03/30/2025 11:16 AM CDT Images from the original note were not included. Your life is our life's work [facility] Hospitalist/Hospital Medicine Progress Note LOS: 3 days Room/Bed: 3258/02 Patient name: Javier Stubbs Date of : 1940 HOSPITAL COURSE SUMMARY: Javier Stubbs, a 85 y.o. female with PMH significant for arthritis on high-dose steroids, lumbar radiculopathy, indwelling Rollins, GERD, anemia Patient presented to [facility] on 03/22 for generalized weakness, fatigue and abdominal discomfort. She was STEMI activated initially due to some EKG changes and coronary angiogram without any obstructive CAD. LVEF was 60 to 65%. CT abdomen/pelvis was done which was suggestive of acute sigmoid diverticulitis with concern for contained perforation and fluid collection with some gas measuring 6X 4.2 cm. Patient was given vancomycin and Zosyn. Patient was transferred here after discussion with IR per documentation. Patient was started on Rocephin and Flagyl on presentation here. IR wasconsulted for CT- guided drain placement 03/29 -reviewed CT results from outside facility, consulted surgery and discussed with Dr. La. Patient underwent drain placement left pelvic region by IR, purulent drainage with some concern for possible stool?. Surgical team following 03/30 -complains of aches all over more so in bilateral hip area. Check x-ray although likely relatedto her arthritis. Consultants: IP CONSULT TO WOUND/SKIN CARE TEAM IP CONSULT TO INTERVENTIONAL RADIOLOGY IP CONSULT TO IV TEAM IP CONSULT TO GENERAL SURGERY SUBJECTIVE: Patient seen and examined at bedside. Complains of pain all over, no other new complaints ROS: 12 systems reviewed, negative except above OBJECTIVE: Temp (24hrs), Av.8 ??F (36 ??C), Min:96.4 ??F (35.8 ??C), Max:97.2 ??F (36.2 ??C) BP 103/52 (BP Location: Left arm, Patient Position (BP): Supine) Pulse 95 Temp 96.8 ??F (36 ??C) (Oral) Resp 16 Ht 5' (1.524 m) Wt 70.1 kg (154 lb 8.7 oz) LMP (LMP Unknown) Comment: post-metapausal SpO2 97% BMI 30.18 kg/m?? Intake/Output Summary (Last 24 hours) at 03/30/2025 1116 Last data filed at 03/30/2025 0458 Gross per 24 hour Intake 250 ml Output 400 ml Net -150 ml Last documented weight: Weight: 70.1 kg (154 lb 8.7 oz) (03/30/25 0458) EXAM: General: But arousable Neurologic: No gross focal deficits HEENT: atraumatic, Normocephalic, hard of hearing Lungs: clear to auscultation bilaterally anteriorly Heart: normal rate, normal S1-S2 Abdomen: Soft, drain in place with posterior access to left pelvic region, purulent drainage LABORATORY: Recent Labs 03/27/25202303/28/25 0503/29/25335 WBC 7.3 8.4 10.4 HGB 8.5* 8.4* 9.6* HCT 27.6* 27.2* 30.5* PLT 373 385 497* Recent Labs 03/27/25202303/28/2551103/29/2533503/30/25 0109 NA 140 141 141 140 K 3.9 3.6 3.3* 4.1 CL 109* 111* 107 109* CO2 22 22 23 21* CA 9.5 9.2 9.6 9.7 BUN 8 7* 9 9 CREAT 0.70 0.62 0.62 0.58 GLUCOSE 147* 95 113* 137* Recent Labs 03/27/25202303/29/2533503/30/25 0109 TOTALPROTEIN 5.5* 5.4* 5.3* ALBUMIN 3.2* 2.9* 2.9* BILITOTAL 0.5 0.3 0.3 ALKPHOS 118* 124* 134* AST 14 14 10 ALT 25 26 24 Recent Labs 03/27/252023 INR 1.1 PT 14.7 No results for input(s): BASETROP , 2HRTROP , DELTA , 6HRTROP in the last 72 hours. Diagnostic testing reviewed by me: All diagnostic tests last 24 hours Medications were reviewed by me. Current Facility-Administered Medications: HYDROcodone-acetaminophen (NORCO) 5-325 mg per tablet 2 Tablet, 2 Tablet, Oral, every 4 hours PRN, Rico Galvan MD, 2 Tablet at 03/30/25 0549 zinc OXIDE-cod liver oil (DESITIN) 40 % topical paste, , Topical, BID, Rico Galvan MD, Givenat 03/30/25 0845 [DISCONTINUED] HYDROcodone-acetaminophen (NORCO) 5-325 mg per tablet 1 Tablet, 1 Tablet, Oral, every 6 hours PRN, Rico Galvan MD, 1 Tablet at 03/29/25 1142 sodium chloride flush injection 10 mL, 10 mL, IV, every 12 hours (2 times daily), Driss Dahl MD, 10 mL at 03/30/25 0845 sodium chloride flush injection 10 mL, 10 mL, IV, see admin instructions, Driss Dahl MD sodium chloride 0.9 % flush bag 25 mL, 25 mL, IV, see admin instructions, Driss Dahl MD dextrose 5 % in water 250 mL flush bag 25 mL, 25 mL, IV, see admin instructions, Driss Dahl MD naloxone (NARCAN) 0.4 mg/mL injection 0.1 mg, 0.1 mg, IV, see admin instructions, Driss Dahl MD ondansetron (ZOFRAN) 4 mg/2 mL injection 4 mg, 4 mg, IV, every 6 hours PRN, Driss Dahl MD heparin injection 5,000 Units, 5,000 Units, subCUT, every 8 hours, Driss Dahl MD, 5,000 Units at 03/30/25 0549 cefTRIAXone (ROCEPHIN) 2,000 mg in sodium chloride 0.9% 50 mL IVPB (MBP), 2,000 mg, IV, every 24 hours (daily), Driss Dahl MD, Stopped at 03/29/25 2205 metroNIDAZOLE (FLAGYL) tablet 500 mg, 500 mg, Oral, every 8 hours, Driss Dahl MD, 500 mg at03/30/25 0549 saccharomyces boulardii (FLORASTOR) capsule 250 mg, 250 mg, Oral, BID, Driss Dahl MD, 250 mg at 03/30/25 0842 [Held by Provider] clopidogreL (PLAVIX) tablet 75 mg, 75 mg, Oral, daily, Driss Dahl MD pantoprazole (PROTONIX) tablet 20 mg, 20 mg, Oral, daily, Driss Dahl MD, 20 mg at 03/30/25 0844 predniSONE (DELTASONE) tablet 25 mg, 25 mg, Oral, daily WITH breakfast, Driss Dahl MD, 25 mg at 03/30/25 0842 [DISCONTINUED] acetaminophen (TYLENOL) tablet 650 mg, 650 mg, Oral, every 6 hours PRN, Driss Dahl MD, 650 mg at 03/29/25 0612 Primary discharge diagnosis: Sigmoid diverticulitis Other active medical issues also addressed during this admission: Active Hospital Problems Diagnosis Sigmoid diverticulitis Abscess of sigmoid colon due to diverticulitis Lumbosacral spondylosis without myelopathy Indwelling Rollins catheter present Pressure injury of sacral region, stage 1 Osteoarthritis of multiple joints Gastroesophageal reflux disease without esophagitis Anemia Resolved Hospital Problems No resolved problems to display. ASSESSMENT AND PLAN: Acute sigmoid diverticulitis with concern for contained perforation and abscess CT results reviewed from outside facility Patient was discussed with interventional radiology here and was plan for IR guided drain placement Patient underwent IR guided drain placement, purulent drainage with some concern for? Stool Surgical team is following at this point Patient currently on Rocephin and Flagyl, intraoperative cultures with mixed caitie so far-of note patient was already on antibiotics prior to transfer Chronic arthritis Patient is on 25 mg of prednisone daily Unclear why patient is on high-dose of steroids for arthritis Will need to wean slowly over time Stage I sacral ulcer, present on presentation Skin care ? Chronic normocytic anemia Outpatient follow-up, no overt bleeding Yeast in urine Suspect colonization GERD Continue PPI DVT prophylaxis Subcutaneous heparin Code status: Full Code Outpatient follow up: PCP, colorectal surgery Anticipated Disposition Location: Possibly home health care -therapy evaluation Timeframe: Next 2 to 3 days Criteria: Workup complete, improved symptoms Patient's understanding of illness: ? Fair Primary family contact: Discussed with son at bedside MDM complexity: [] Mild [x] Moderate [] High Rico Galvan MD 03/30/2025, 11:16 AM * Rico Galvan MD - 03/29/2025 10:08 AM CDT Images from the original note were not included. Your life is our life's work [facility] Hospitalist/Hospital Medicine Progress Note LOS: 2 days Room/Bed: 3258/02 Patient name: Javier Stubbs Date of : 1940 HOSPITAL COURSE SUMMARY: Javier Stubbs, a 85 y.o. female with PMH significant for arthritis on high-dose steroids, lumbar radiculopathy, indwelling Rollins, GERD, anemia Patient presented to [facility] on 03/22 for generalized weakness, fatigue and abdominal discomfort. She was STEMI activated initially due to some EKG changes and coronary angiogram without any obstructive CAD. LVEF was 60 to 65%. CT abdomen/pelvis was done which was suggestive of acute sigmoid diverticulitis with concern for contained perforation and fluid collection with some gas measuring 6X 4.2 cm. Patient was given vancomycin and Zosyn. Patient was transferred here after discussion with IR per documentation. Patient was started on Rocephin and Flagyl on presentation here. IR wasconsulted for CT- guided drain placement 03/28 -reviewed CT results from outside facility, consulted surgery and discussed with Dr. La. Patient underwent drain placement left pelvic region by IR, purulent drainage with some concern for possible stool?. Surgical team following Consultants: IP CONSULT TO WOUND/SKIN CARE TEAM IP CONSULT TO INTERVENTIONAL RADIOLOGY IP CONSULT TO IV TEAM IP CONSULT TO GENERAL SURGERY SUBJECTIVE: Patient seen and examined at bedside. Complains of pain all over, moderate back ROS: 12 systems reviewed, negative except above OBJECTIVE: Temp (24hrs), Av.9 ??F (36.6 ??C), Min:97.1 ??F (36.2 ??C), Max:99 ??F (37.2 ??C) BP 137/76 (BP Location: Right arm, Patient Position (BP): Supine) Pulse 84 Temp 97.2 ??F (36.2 ??C) (Oral) Resp 18 Ht 5' (1.524 m) Wt 67.2 kg (148 lb 2.4 oz) LMP (LMP Unknown) Comment: post-metapausal SpO2 98% BMI 28.93 kg/m?? Intake/Output Summary (Last 24 hours) at 03/29/2025 1008 Last data filed at 03/28/2025 1353 Gross per 24 hour Intake 50 ml Output -- Net 50 ml Last documented weight: Weight: 67.2 kg (148 lb 2.4 oz) (03/28/25 0450) EXAM: General: Alert, uncomfortable appearing Neurologic: No gross focal deficits although limited exam due to discomfort/hard of hearing HEENT: atraumatic, Normocephalic, hard of hearing Lungs: clear to auscultation bilaterally anteriorly Heart: normal rate, normal S1-S2 Abdomen: Soft, drain in place with posterior access to left pelvic region, purulent drainage LABORATORY: Recent Labs 03/27/25202303/28/2551103/29/25 033 WBC 7.3 8.4 10.4 HGB 8.5* 8.4* 9.6* HCT 27.6* 27.2* 30.5* PLT 373 385 497* Recent Labs 03/27/25202303/28/2551103/29/25 0336 NA 140 141 141 K 3.9 3.6 3.3* CL 109* 111* 107 CO2 22 22 23 CA 9.5 9.2 9.6 BUN 8 7* 9 CREAT 0.70 0.62 0.62 GLUCOSE 147* 95 113* Recent Labs 03/27/25202303/29/25 033 TOTALPROTEIN 5.5* 5.4* ALBUMIN 3.2* 2.9* BILITOTAL 0.5 0.3 ALKPHOS 118* 124* AST 14 14 ALT 25 26 Recent Labs 03/27/252023 INR 1.1 PT 14.7 No results for input(s): BASETROP , 2HRTROP , DELTA , 6HRTROP in the last 72 hours. Diagnostic testing reviewed by me: All diagnostic tests last 24 hours Medications were reviewed by me. Current Facility-Administered Medications: [COMPLETED] potassium CHLORIDE (KLOR-CON) SR tablet 40 mEq, 40 mEq, Oral, ONE time only, Rico Galvan MD, 40 mEq at 03/29/25 0945 HYDROcodone-acetaminophen (NORCO) 5-325 mg per tablet 1 Tablet, 1 Tablet, Oral, every 6 hours PRN, Rico Galvan MD, 1 Tablet at 03/29/25 0320 [COMPLETED] lidocaine PF 1% (XYLOCAINE MPF) injection 15 mL, 150 mg, Infiltration, ONE time only, Jas Gerard MD, 15 mL at 03/28/25 1342 [COMPLETED] dextrose 5% - sodium chloride 0.45% infusion, , IV, intra-proc ONE time, Jsa Gerard MD, Stopped at 03/28/25 1410 zinc OXIDE-cod liver oil (DESITIN) 40 % topical paste, , Topical, BID, Rico Galvan MD, Givenat 03/29/25 0900 [COMPLETED] midazolam (PF) (VERSED) injection 1 mg, 1 mg, IV, intra-proc ONE time, Jas Gerard MD, 1 mg at 03/28/25 1330 [COMPLETED] fentaNYL PF (SUBLIMAZE) 50 mcg/mL injection 50 mcg, 50 mcg, IV, intra-proc ONE time, Jas Gerard MD, 50 mcg at 03/28/25 1330 sodium chloride flush injection 10 mL, 10 mL, IV, every 12 hours (2 times daily), Driss Dahl MD, 10 mL at 03/29/25 0900 sodium chloride flush injection 10 mL, 10 mL, IV, see admin instructions, Driss Dahl MD sodium chloride 0.9 % flush bag 25 mL, 25 mL, IV, see admin instructions, Driss Dahl MD dextrose 5 % in water 250 mL flush bag 25 mL, 25 mL, IV, see admin instructions, Driss Dahl MD acetaminophen (TYLENOL) tablet 650 mg, 650 mg, Oral, every 6 hours PRN, Driss Dahl MD, 650 mg at 03/29/25 0612 naloxone (NARCAN) 0.4 mg/mL injection 0.1 mg, 0.1 mg, IV, see admin instructions, Driss Dahl MD ondansetron (ZOFRAN) 4 mg/2 mL injection 4 mg, 4 mg, IV, every 6 hours PRN, Driss Dahl MD heparin injection 5,000 Units, 5,000 Units, subCUT, every 8 hours, Driss Dahl MD, 5,000 Units at 03/29/25 05 cefTRIAXone (ROCEPHIN) 2,000 mg in sodium chloride 0.9% 50 mL IVPB (MBP), 2,000 mg, IV, every 24 hours (daily), Driss Dahl MD, Stopped at 03/28/25 2103 metroNIDAZOLE (FLAGYL) tablet 500 mg, 500 mg, Oral, every 8 hours, Driss Dahl MD, 500 mg at03/29/25 0529 saccharomyces boulardii (FLORASTOR) capsule 250 mg, 250 mg, Oral, BID, Driss Dahl MD, 250 mg at 03/29/25 0940 [Held by Provider] clopidogreL (PLAVIX) tablet 75 mg, 75 mg, Oral, daily, Driss Dahl MD pantoprazole (PROTONIX) tablet 20 mg, 20 mg, Oral, daily, Driss Dahl MD, 20 mg at 03/29/25 0945 predniSONE (DELTASONE) tablet 25 mg, 25 mg, Oral, daily WITH breakfast, Driss Dahl MD, 25 mg at 03/29/25 0940 Primary discharge diagnosis: Sigmoid diverticulitis Other active medical issues also addressed during this admission: Active Hospital Problems Diagnosis Sigmoid diverticulitis Abscess of sigmoid colon due to diverticulitis Lumbosacral spondylosis without myelopathy Indwelling Rollins catheter present Pressure injury of sacral region, stage 1 Osteoarthritis of multiple joints Gastroesophageal reflux disease without esophagitis Anemia Resolved Hospital Problems No resolved problems to display. ASSESSMENT AND PLAN: Acute sigmoid diverticulitis with concern for contained perforation and abscess CT results reviewed from outside facility Patient was discussed with interventional radiology here and was plan for IR guided drain placement Patient underwent IR guided drain placement, purulent drainage with some concern for? Stool Surgical team is following at this point Patient currently on Rocephin and Flagyl, intraoperative cultures with mixed caitie so far-of note patient was already on antibiotics prior to transfer Chronic arthritis Patient is on 25 mg of prednisone daily Unclear why patient is on high-dose of steroids for arthritis Will need to wean slowly over time Stage I sacral ulcer, present on presentation Skin care ? Chronic normocytic anemia Outpatient follow-up, no overt bleeding Yeast in urine Suspect colonization GERD Continue PPI DVT prophylaxis Subcutaneous heparin Code status: Full Code Outpatient follow up: PCP, colorectal surgery Anticipated Disposition Location: Possibly home health care Timeframe: Next 2 to 3 days Criteria: Workup complete, improved symptoms Patient's understanding of illness: ? Fair Primary family contact: None at bedside today MDM complexity: [] Mild [x] Moderate [] High Rico Galvan MD 03/29/2025, 10:08 AM * Shay Calhoun RN - 03/28/2025 1:59 PM CDT Imaging Nurse Post Procedure Note (left blank = NA) CT guided pelvic abscess drain placement Dressing (x by appropriate choice): tegaderm: Bandaid: Percustay: Gauze/tape: X Dermabond: Steristrips: Sureseal: Other: guaze/medipore taple/ sutures Dressing location: left pelvic/sacral Sedation time: 27 (min) (may also be documented via sedation tracking in sedation navigator) Report: Called to Imaging RN: Called to nurse on floor/unit: 3D: Ness RN Tolerated well: yes Other: Medications given: Versed 1mg; Fentanyl 50mcg * Rico Galvan MD - 03/28/2025 10:48 AM CDT Images from the original note were not included. Your life is our life's work [facility] Hospitalist/[facility] Medicine Progress Note LOS: 1 day Room/Bed: 3355/02 Patient name: Javier Stubbs Date of : 1940 HOSPITAL COURSE SUMMARY: Javier Stubbs, a 85 y.o. female with PMH significant for arthritis on high-dose steroids, lumbar radiculopathy, indwelling Rollins, GERD, anemia Patient presented to [facility] on 03/22 for generalized weakness, fatigue and abdominal discomfort. She was STEMI activated initially due to some EKG changes and coronary angiogram without any obstructive CAD. LVEF was 60 to 65%. CT abdomen/pelvis was done which was suggestive of acute sigmoid diverticulitis with concern for contained perforation and fluid collection with some gas measuring 6X 4.2 cm. Patient was given vancomycin and Zosyn. Patient was transferred here after discussion with IR per documentation. Patient was started on Rocephin and Flagyl on presentation here. IR was consulted for CT- guided drain placement 03/28 -reviewed CT results from outside facility, consulted surgery and discussed with Dr. La Consultants: IP CONSULT TO WOUND/SKIN CARE TEAM IP CONSULT TO INTERVENTIONAL RADIOLOGY IP CONSULT TO IV TEAM SUBJECTIVE: Patient seen and examined at bedside. Complains of some abdominal discomfort and back discomfort. Son present at bedside. Discussed with son regarding reason for being on high-dose steroids, per son she is on high-dose steroids for arthritis ROS: 12 systems reviewed, negative except above OBJECTIVE: Temp (24hrs), Av.6 ??F (36.4 ??C), Min:97.3 ??F (36.3 ??C), Max:97.9 ??F (36.6 ??C) BP 133/63 (BP Location: Left arm, Patient Position (BP): Supine) Pulse 71 Temp 97.7 ??F (36.5 ??C) (Oral) Resp 16 Ht 5' (1.524 m) Wt 67.2 kg (148 lb 2.4 oz) SpO2 97% BMI 28.93 kg/m?? No intake or output data in the 24 hours ending 03/28/25 1049 Last documented weight: Weight: 67.2 kg (148 lb 2.4 oz) (03/28/25 0450) EXAM: General: Alert, uncomfortable appearing Neurologic: No gross focal deficits although limited exam due to discomfort/hard of hearing HEENT: atraumatic, Normocephalic, hard of hearing Lungs: clear to auscultation bilaterally anteriorly Heart: normal rate, normal S1-S2 Abdomen: Soft, tenderness left lower quadrant LABORATORY: Recent Labs 03/27/25202303/28/25511 WBC 7.3 8.4 HGB 8.5* 8.4* HCT 27.6* 27.2* PLT 373 385 Recent Labs 03/27/25202303/28/25511 NA 140 141 K 3.9 3.6 CL 109* 111* CO2 22 22 CA 9.5 9.2 BUN 8 7* CREAT 0.70 0.62 GLUCOSE 147* 95 Recent Labs 03/27/252023 TOTALPROTEIN 5.5* ALBUMIN 3.2* BILITOTAL 0.5 ALKPHOS 118* AST 14 ALT 25 Recent Labs 03/27/252023 INR 1.1 PT 14.7 No results for input(s): BASETROP , 2HRTROP , DELTA , 6HRTROP in the last 72 hours. Diagnostic testing reviewed by me: All diagnostic tests last 24 hours Medications were reviewed by me. Current Facility-Administered Medications: [COMPLETED] oxyCODONE (ROXICODONE) tablet 5 mg, 5 mg, Oral, ONE time only, Driss Dahl MD, 5mg at 03/28/25 0053 sodium chloride flush injection 10 mL, 10 mL, IV, every 12 hours (2 times daily), Driss Dahl MD, 10 mL at 03/28/25 0900 sodium chloride flush injection 10 mL, 10 mL, IV, see admin instructions, Driss Dahl MD sodium chloride 0.9 % flush bag 25 mL, 25 mL, IV, see admin instructions, Driss Dahl MD dextrose 5 % in water 250 mL flush bag 25 mL, 25 mL, IV, see admin instructions, Driss Dahl MD acetaminophen (TYLENOL) tablet 650 mg, 650 mg, Oral, every 6 hours PRN, Driss Dahl MD, 650 mg at 03/28/25 0953 naloxone (NARCAN) 0.4 mg/mL injection 0.1 mg, 0.1 mg, IV, see admin instructions, Driss Dahl MD ondansetron (ZOFRAN) 4 mg/2 mL injection 4 mg, 4 mg, IV, every 6 hours PRN, Driss Dahl MD heparin injection 5,000 Units, 5,000 Units, subCUT, every 8 hours, Driss Dahl MD, 5,000 Units at 03/28/25 0525 cefTRIAXone (ROCEPHIN) 2,000 mg in sodium chloride 0.9% 50 mL IVPB (MBP), 2,000 mg, IV, every 24 hours (daily), Driss Dahl MD, Stopped at 03/27/25 2252 metroNIDAZOLE (FLAGYL) tablet 500 mg, 500 mg, Oral, every 8 hours, Driss Dahl MD, 500 mg at03/28/25 0525 saccharomyces boulardii (FLORASTOR) capsule 250 mg, 250 mg, Oral, BID, Driss Dahl MD, 250 mg at 03/28/25 0954 [Held by Provider] clopidogreL (PLAVIX) tablet 75 mg, 75 mg, Oral, daily, Driss Dahl MD pantoprazole (PROTONIX) tablet 20 mg, 20 mg, Oral, daily, Driss Dahl MD, 20 mg at 03/28/25 0954 predniSONE (DELTASONE) tablet 25 mg, 25 mg, Oral, daily WITH breakfast, Driss Dahl MD, 25 mg at 03/28/25 0954 Primary discharge diagnosis: Sigmoid diverticulitis Other active medical issues also addressed during this admission: Active Hospital Problems Diagnosis Sigmoid diverticulitis Abscess of sigmoid colon due to diverticulitis Lumbosacral spondylosis without myelopathy Indwelling Rollins catheter present Pressure injury of sacral region, stage 1 Pancreatic cyst Osteoarthritis of multiple joints Gastroesophageal reflux disease without esophagitis Anemia Resolved Hospital Problems No resolved problems to display. ASSESSMENT AND PLAN: Acute sigmoid diverticulitis with concern for contained perforation and abscess CT results reviewed from outside facility Patient was discussed with interventional radiology here and was plan for IR guided drain placement We will get surgical team involved in care for this patient as she is going to need surgical service and longer-term, discussed with Dr. La Monitor closely for signs of peritonitis Patient currently on Rocephin and Flagyl, await intraoperative cultures Chronic arthritis Patient is on 25 mg of prednisone daily Unclear why patient is on high-dose of steroids for arthritis Will need to wean slowly over time Stage I sacral ulcer, present on presentation Skin care ? Chronic normocytic anemia Outpatient follow-up, no overt bleeding GERD Continue PPI DVT prophylaxis Subcutaneous heparin Code status: Full Code -discussed with son at bedside as well Outpatient follow up: PCP, colorectal surgery Anticipated Disposition Location: Possibly home Timeframe: Next 3 days Criteria: Workup complete, improved symptoms Patient's understanding of illness: ? Fair Primary family contact: Discussed with son at bedside MDM complexity: [] Mild [] Moderate [x] High Rico Galvan MD 03/28/2025, 10:49 AM documented in this encounter H&P Notes * Driss Dahl MD - 03/27/2025 7:13 PM CDT Images from the original note were not included. Your life is our life's work [facility] Hospitalist-Driss Dahl MD History and physical- date of admission: 03/27/2025 Patient name: Javier Stubbs Date of : 1940 CSN number: [id number] PCP: No primary care provider on file. Chief Complaint: No chief complaint on file. History of present illness: Pt seen and examined at the bedside Javier Stubbs is a 85 y.o. female with PHM of lumbar radiculopathy, osteoarthritis who has been transferred from [facility] to [facility] medicine service on 03/27/2025 for interventional radiology evaluation for diverticulitis with abscess. Patient initially presented to [facility] on 03/22/2025 for generalized weakness, nausea and fatigue. Initially, STEMI alert was called and the patient was admitted to cardiac stepdown unit due to ST segment changes on the inferior leads on EKG. Underwent cardiac cath and was found no obstructive CAD. No intervention was performed. EF was 60 to 65% with grade [address] of the abdomen and pelvis revealed acute sigmoid diverticulitis with focal fluid collection measuring 6 x 4.2 cm. She was given vancomycin and Zosyn. Dr. Gerard from was consulted for drain placement whowill see the patient tomorrow and recommended to keep the patient n.p.o. Examined the patient at bedside along with the nurse. She was awake and oriented to person. Suspectthat she has underlying dementia. She reports low back pain. Denies any other complaints. When asked about why she went to the hospital, she does not remember and states that her son took her to the hospital. Attempted to call the patient's son with the phone numbers listed on the chart. No response. Left voicemail. She has a indwelling Rollins. Hgb 8.3; WBC 8.72; albumin 2.1; alk phos 2.2; blood cx negative so far Past medical history: No past medical history on file. Active chronic medical issues that patient has been followed for as outpatient: Patient Active Problem List Diagnosis Code Sigmoid diverticulitis K57.32 Abscess of sigmoid colon due to diverticulitis K57.20 Lumbosacral spondylosis without myelopathy M47.817 Indwelling Rollins catheter present Z97.8 Pressure injury of sacral region, stage 1 L89.151 Pancreatic cyst K86.2 Osteoarthritis of multiple joints M15.9 Gastroesophageal reflux disease without esophagitis K21.9 Anemia D64.9 Past surgical history: No past surgical history on file. Current medications: Prior to Admission Medications Prescriptions Last Dose Informant Patient Reported? Taking? DULoxetine (CYMBALTA) 20 mg Capsule, Delayed Release(E.C.) Yes No Sig: Take 20 mg by mouth daily. acyclovir (ZOVIRAX) 400 mg tablet Yes No Sig: Take 400 mg by mouth see administration instructions. acyclovir (ZOVIRAX) 5 % Cream Yes No Sig: Apply to affected area 5 times daily. amLODIPine (NORVASC) 10 mg tablet Yes No Sig: Take 10 mg by mouth daily. atorvastatin (LIPITOR) 40 mg tablet Yes No Sig: Take 40 mg by mouth daily. clopidogreL (PLAVIX) 75 mg Tablet Yes No Sig: Take 75 mg by mouth. gabapentin (NEURONTIN) 600 mg tablet Yes No Sig: Take 600 mg by mouth. ibuprofen (MOTRIN) 200 mg tablet Yes No Sig: Take 200 mg by mouth every 6 hours as needed for Pain, Mild. oxyCODONE (ROXICODONE) 10 mg tablet Yes No Sig: Take 10 mg by mouth every 6 hours as needed for Pain, Moderate. pantoprazole (PROTONIX) 20 mg Tablet, Delayed Release (E.C.) Yes No Sig: Take 20 mg by mouth daily. predniSONE (DELTASONE) 10 mg tablet Yes No Sig: Take 10 mg by mouth 1 time daily as needed. Facility-Administered Medications: None Allergies and intolerances: No Known Allergies Social history: Social History Socioeconomic History Marital status: Spouse name: Not on file Number of children: Not on file Years of education: Not on file Highest education level: Not on file Occupational History Not on file Tobacco Use Smoking status: Not on file Smokeless tobacco: Not on file Substance and Sexual Activity Alcohol use: Not on file Drug use: Not on file Sexual activity: Not on file Other Topics Concern Not on file Social History Narrative Not on file Social Drivers of Health Food Insecurity: Not on file (03/27/2025) Transportation Needs: No Transportation Needs (03/27/2025) Transportation Needs Patient needs follow up regarding:: 1 Feeling Safe: Not At Risk (03/27/2025) Feeling Safe Patient has indicated abuse: : No Housing Stability: Not on file Family History: No family history on file. ROS: Review of Systems Constitutional: Negative for chills, fever and malaise/fatigue. HENT: Negative for sore throat. Eyes: Negative for blurred vision. Respiratory: Negative for cough, hemoptysis, sputum production and shortness of breath. Cardiovascular: Negative for chest pain, palpitations and leg swelling. Gastrointestinal: Negative for abdominal pain, diarrhea, nausea and vomiting. OBJECTIVE: Temp (24hrs), Av.3 ??F (36.3 ??C), Min:97.3 ??F (36.3 ??C), Max:97.3 ??F (36.3 ??C) BP 139/69 (BP Location: Left arm, Patient Position (BP): Supine) Pulse 80 Temp 97.3 ??F (36.3 ??C) (Temporal) Resp 16 Ht 5' (1.524 m) Wt 66.7 kg (147 lb 0.8 oz) SpO2 97% BMI 28.72 kg/m?? No intake or output data in the 24 hours ending 03/27/252042 Last documented weight: Weight: 66.7 kg (147 lb 0.8 oz) (03/27/251899) EXAM: General: alert, in no distress Mental exam: Awake, oriented to person Neurologic: Grossly normal HEENT: atraumatic, Normocephalic, without obvious abnormality Lungs: clear to auscultation bilaterally, normal respiratory effort Heart: normal rate, regular rhythm, normal S1, S2, no murmurs, rubs, clicks or gallops Abdomen: Soft, non-tender. Bowel sounds normal. No masses, no organomegaly. Extremities: Small hemorrhagic blister noted on the steen of left lower extremity. No edema noted. Skin: Stage I pressure ulcer noted in the sacrum CXR: Images personally reviewed by me shows no pneumonia, effusion or pneumothorax Imaging Results None Primary diagnosis: Sigmoid diverticulitis Other active medical issues Active Hospital Problems Diagnosis Sigmoid diverticulitis Abscess of sigmoid colon due to diverticulitis Lumbosacral spondylosis without myelopathy Indwelling Rollins catheter present Pressure injury of sacral region, stage 1 Pancreatic cyst Osteoarthritis of multiple joints Gastroesophageal reflux disease without esophagitis Anemia Resolved Hospital Problems No resolved problems to display. ASSESSMENT AND PLAN: 85 y.o. female with PHM of lumbar radiculopathy, osteoarthritis is being admitted for further management of sigmoid diverticulitis with abscess Sigmoid diverticulitis with abscess -Went to OSH for generalized weakness, nausea and fatigue - CT revealed mid sigmoid colonic perforation and abscess measuring 6 x 4.2 cm in the left pelvis, moderate sigmoid colonic diverticulosis with acute diverticulitis in the mid sigmoid colon - She has been transferred here for IR intervention. - Has been on vancomycin and Zosyn. - Blood cultures negative so far. Plan: -Will start on ceftriaxone and flagyl -Probiotics while on antibiotics -NPO after midnight -IV zofran as needed for N/V -IR consult placed for drain placement. - Clear liquid diet for now. Osteoarthritis Chronic steroid therapy -She has been on chronic steroid therapy with prednisone 25 mg daily for arthritis/polymyalgia - Continue prednisone 25 mg daily. - Will need long taper course considering that she has been on steroids for quite some time. - Tylenol as needed for pain control. Pressure ulcer of sacrum - Wound care consulted. Pancreatic cyst -Multiple cysts noted throughout the pancreatic body possibly contiguous with the cystic duct measuring 1.3 x 1.5 cm in the mid body. At the pancreatic head, lobulated cystic lesion measuring 2 x 2.1cm noted. Base lesions may represent IPMN's. Plan: -Will need outpatient follow-up with MRI/MRCP. - Son need to be updated on the plan of care. Indwelling Rollins present -Has Rollins catheter that was placed at OSH. - Will perform voiding trial post intervention. GERD -Continue PPI Anemia -Hemoglobin from OSH low at 8.3. - Check iron studies - Transfuse if hemoglobin drops less than 7. She is on Plavix 75 mg daily. No prior history of CVA or [place]. She reports that she was started on Plavix due to family history of heart disease. Hold Plavix for IR intervention. Current diet : DIET NPO Sips w/Meds, DIET CLEAR LIQUID Code status and goals of care was discussed with the patient, and code status was updated in the chart. Code Status: Full Code DVT prophylaxis: Heparin subcu Admission status; inpatient telemetry This patient is admitted as inpatient. I have a reasonable expectation that this patient requires hospital care that crosses 2 midnights supported by complex medical factors documented in the medicalrecord. On the day of the visit, I spent 79 minutes providing care to this patient including Preparing to see the patient, Obtaining and/or reviewing separately obtained history, Performing a medically appropriate examination and/or evaluation, Counseling and educating the patient/family/caregiver, Ordering medications, tests or procedures, Documenting clinical information in the medical record, Referring and communication with other health rn home care (not separately reported), Independently interpreting results and communicating results to the patient/family/caregiver (not separately reported), Care coordination (not separately reported), and Excluding time spent performing separately billed procedures and/or services. Driss Dahl MD 03/27/2025 8:43 PM documented in this encounter Procedure Notes * Curtis Cevallos RN - 03/27/2025 9:40 PM CDT VASCULAR ACCESS TEAM Peripheral IV insertion PATIENT NAME: Javier Stubbs DATE OF : 1940 [facility]: [id number] DATE: 03/27/2025 Room: [address] [place] [address] Admit Date: 03/27/2025 Hospital day: LOS: 0 days PERIPHERAL IV INSERTION Ultrasound assessment was performed to assess adequacy of vascular anatomy Adequate vessel was located Insertion site cleansed for 30 seconds with Chlora-prep. Allowed to dry before initial needle stick. A 20 Gauge 2 Inch peripheral IV was successfully placed using ultrasound guidance in the left, lower Arm Secure port adhesive used Yes 1 attempts 25 minutes required to complete procedure Positive blood return noted Neutral pressure cap applied Catheter Flushed with 5ml of Normal Saline Transparent dressing applied with date, time and initials of cowoker inserting. LDA documentation is contained in EMR flowsheet Patient tolerated well. Curtis Cevallos RN documented in this encounter Consult Notes * Tucker Marroquin MD - 03/30/2025 8:05 PM CDT Patient: Javier Stubbs / 85 y.o. / female : 1940 Chief Complaint: abdominal pain History of Present Illness: Javier Stubbs is a very pleasant 85 y.o. year-old female who presents with recent workup for EKG changes had a cardiac catheterization without intervention. She developed abdominal pain showing evidence of a 6 cm diverticular abscess and was taken to interventional radiol ogy for drain. There is evidence of purulent feculent output in the drain. She has had a previous hysterectomy. No prior episodes of diverticulitis per her report Past Medical Hx: No past medical history on file. Past Surgical Hx: No past surgical history on file. Medications: Current Facility-Administered Medications Medication Dose Route Frequency Provider Last Rate Last Admin [START ON 03/31/2025] predniSONE (DELTASONE) tablet 20 mg 20 mg Oral daily WITH breakfast Rico Galvan MD balsam violetta-castor oiL (VENELEX) topical ointment Topical daily Rico Galvan MD Given at 03/30/25 1432 HYDROcodone-acetaminophen (NORCO) 5-325 mg per tablet 2 Tablet 2 Tablet Oral every 4 hours PRN Rico Galvan MD 2 Tablet at 03/30/25 1236 zinc OXIDE-cod liver oil (DESITIN) 40 % topical paste Topical BID Rico Galvan MD Given at 03/30/25 0845 sodium chloride flush injection 10 mL 10 mL IV every 12 hours (2 times daily) Driss Dahl MD10 mL at 03/30/25 0845 sodium chloride flush injection 10 mL 10 mL IV see admin instructions Driss Dahl MD sodium chloride 0.9 % flush bag 25 mL 25 mL IV see admin instructions Driss Dahl MD dextrose 5 % in water 250 mL flush bag 25 mL 25 mL IV see admin instructions Driss Dahl MD naloxone (NARCAN) 0.4 mg/mL injection 0.1 mg 0.1 mg IV see admin instructions Driss Dahl MD ondansetron (ZOFRAN) 4 mg/2 mL injection 4 mg 4 mg IV every 6 hours PRN Driss Dahl MD heparin injection 5,000 Units 5,000 Units subCUT every 8 hours Driss Dahl MD 5,000 Units at03/30/25 1236 cefTRIAXone (ROCEPHIN) 2,000 mg in sodium chloride 0.9% 50 mL IVPB (MBP) 2,000 mg IV every 24 hours(daily) Driss Dahl MD Stopped at 03/29/25 2205 metroNIDAZOLE (FLAGYL) tablet 500 mg 500 mg Oral every 8 hours Driss Dahl MD 500 mg at 03/30/25 1236 saccharomyces boulardii (FLORASTOR) capsule 250 mg 250 mg Oral BID Driss Dahl MD 250 mg at 03/30/25 0842 [Held by Provider] clopidogreL (PLAVIX) tablet 75 mg 75 mg Oral daily Driss Dahl MD pantoprazole (PROTONIX) tablet 20 mg 20 mg Oral daily Driss Dahl MD 20 mg at 03/30/25 0844 [DISCONTINUED] predniSONE (DELTASONE) tablet 25 mg 25 mg Oral daily WITH breakfast Driss Dahl MD 25 mg at 03/30/25 0842 Allergies: No Known Allergies Family Hx: No family history on file. Social Hx: Social History Socioeconomic History Marital status: Spouse name: Not on file Number of children: Not on file Years of education: Not on file Highest education level: Not on file Occupational History Not on file Tobacco Use Smoking status: Never Smokeless tobacco: Never Vaping Use Vaping status: Never Used Substance and Sexual Activity Alcohol use: Never Drug use: Never Sexual activity: Not Currently Other Topics Concern Not on file Social History Narrative Not on file Social Drivers of Health Food Insecurity: Not on file (03/27/2025) Transportation Needs: No Transportation Needs (03/27/2025) Transportation Needs Patient needs follow up regarding:: 1 Feeling Safe: Not At Risk (03/27/2025) Feeling Safe Patient has indicated abuse: : No Housing Stability: Not on file Review of Systems: Complete review of systems was performed, empty boxes indicate negative responses. Gastrointestinal [] Constipation [] Blood in stool [] Diarrhea [] Abdominal pain [] Nausea [] Vomiting Constitutional [] Fatigue [] fever [] Weakness [] Weight loss Genitourinary [] Blood in urine [] Frequency [] Painful urination [] Urgency Skin [] Itching [] Jaundice / Yellow skin [] Psoriasis / Ecxema [] Rash Musculoskeletal [] Back pain [] Joint pain [] Muscle weakness [] Neck pain Head/ENT [] Congestion [] Headaches [] Hearing loss [] Nose Bleeds [] Sore throat Hematologic [] Abnormal bleeding [] Abnormal brusing [] Enlarged lymph nodes [] Use of blood thinners Respiratory [] Cough [] Shortness of breath [] Sputum production [] Wheezing Neurological [] Dizziness [] Loss of consiousness [] Seizures [] Speech chage Cardiovascular [] Chest pain [] Heart failure [] Leg cramps with walking [] Palpitations Psychiatric [] Alcohol use [] Depression [] Nervousness / Anxiety [] Sleep disturbance Physical Exam: Vitals: 03/30/25 0715 03/30/25 1125 03/30/25 1514 03/30/252001 BP: 103/52 136/62 120/61 116/65 BP Location: Left arm Left arm Left arm Left arm Patient Position (BP): Supine Supine Sitting Supine Pulse: 95 91 99 100 Resp: Temp: 96.8 ??F (36 ??C) 97 ??F (36.1 ??C) 97.2 ??F (36.2 ??C) 97.8 ??F (36.6 ??C) TempSrc: Oral Oral Oral Temporal SpO2: 97% 97% 96% 97% Weight: Height: General appearance: awake, alert, oriented, answers questions appropriately. Body mass index is 30.18 kg/m??., Obese. Head: atraumatic, Normocephalic, without obvious abnormality Eyes: conjunctivae/corneas clear, sclera non icteric Neck: neck is supple, trachea is midline. No masses identified. Lungs: breathing non-labored Heart: no JVD Abdomen: Soft, non-distended. No masses. Minimal tenderness, drain output frankly feculant Extremities: extremities normal, atraumatic, no cyanosis or edema Neurologic: Grossly normal Musculoskeletal: no deformity or swelling Skin: Warm and dry without jaundice Anal: deferred Procedures: none Labs: Lab Results Component Value Date WBC 10.4 03/29/2025 HGB 9.6 (L) 03/29/2025 HCT 30.5 (L) 03/29/2025 PLT 497 (H) 03/29/2025 MCV 98.4 03/29/2025 Lab Results Component Value Date NA 140 03/30/2025 K 4.1 03/30/2025 CL 109 (H) 03/30/2025 CO2 21 (L) 03/30/2025 CA 9.7 03/30/2025 BUN 9 03/30/2025 CREAT 0.58 03/30/2025 GLUCOSE 137 (H) 03/30/2025 TOTALPROTEIN 5.3 (L) 03/30/2025 ALBUMIN 2.9 (L) 03/30/2025 BILITOTAL 0.3 03/30/2025 ALKPHOS 134 (H) 03/30/2025 AST 10 03/30/2025 ALT 24 03/30/2025 ANIONGAP 10 03/30/2025 Imaging: CT images reviewed. Consistent with diverticulitis with abscess Results for orders placed during the hospital encounter of 03/27/25 CT GUIDE PERCUT DRAIN W CATH Impression : CT-guided pelvic abscess drain placement. I, Dr. Jas Gerard, certify that I was present for the entire procedure. Assessment: 85 y.o.Female (BMI:Body mass index is 30.18 kg/m??.) with acute complicated diverticulitis Plan: We had a lengthy discussion about the nature and treatment of diverticulitis. Specifically wediscussed situations in which surgery may be advisable. Severe attacks, especially those complicated by perforation or abscess, multiply recurrent attacks, or chronic diverticulitis are all acceptable indications for sigmoid resection. Surgery in the acute setting often requires placement of a colostomy. If we are able to conservatively manage the disease now with abx and possibly with percutaneous drainage, we can reduce the chances of needing a colostomy with future surgery. Ok for diet advancement. May discharge when medically cleared, follow up in my office in 1-3 weeks. Medical Decision Making: High complexity Signed: Tucker Marroquin M.D., M.S. Colon & Rectal Surgery Office: [email or web address] * Dariela Marley RN - 03/30/2025 1:09 PM CDT Contacted by nurse with concerns for worsening wounds. Coccyx wound with sloughing as expected; heels do appear darker. Ordered Venelex for heels. * Bo Aleman DO - 03/29/2025 8:47 AM CDT Patient: Javier Stubbs / 85 y.o. / female : 1940 Chief Complaint: Diverticular abscess status post IR drain History of Present Illness: Javier Stubbs is a very pleasant 85 y.o. year-old female who presents with recent workup for EKG changes had a cardiac catheterization without intervention. She developed abdominal pain showing evidence of a 6 cm diverticular abscess and was taken to interventional radiol ogy for drain. There is evidence of purulent feculent output in the drain. She did state that the drain helped her abdominal pain but she complains of chronic low back pain which is bothering her at this time more than her abdomen. She has never had a colonoscopy, no family history she is aware of of colon cancer or rectal bleeding. She has had a previous hysterectomy as her only abdominal surgery she states. She is awake alert she is in some mild distress secondary to back pain but no fever. Surgery was asked to evaluate the patient. My partner as indicated colorectal surgery will see her tomorrow for definitive and management. Her is at bedside. Of note patient is on oral steroids. Past Medical Hx: Chronic low back pain, history of pressure ulcer, GERD, osteo arthritis, history of pancreatic cyst Past Surgical Hx: Hysterectomy Medications: Current Facility-Administered Medications Medication Dose Route Frequency Provider Last Rate Last Admin potassium CHLORIDE (KLOR-CON) SR tablet 40 mEq 40 mEq Oral ONE time only Rico Galvan MD HYDROcodone-acetaminophen (NORCO) 5-325 mg per tablet 1 Tablet 1 Tablet Oral every 6 hours PRN Rico Galvan MD 1 Tablet at 03/29/25 0320 [COMPLETED] lidocaine PF 1% (XYLOCAINE MPF) injection 15 mL 150 mg Infiltration ONE time only Jas Gerard MD 15 mL at 03/28/25 1342 [COMPLETED] dextrose 5% - sodium chloride 0.45% infusion IV intra-proc ONE time Jas Gerard MD Stopped at 03/28/25 1410 zinc OXIDE-cod liver oil (DESITIN) 40 % topical paste Topical BID Rico Galvan MD Given at 03/28/25 2100 [COMPLETED] midazolam (PF) (VERSED) injection 1 mg 1 mg IV intra-proc ONE time Jas Gerard MD 1 mg at 03/28/25 1330 [COMPLETED] fentaNYL PF (SUBLIMAZE) 50 mcg/mL injection 50 mcg 50 mcg IV intra- proc ONE time Jas Gerard MD 50 mcg at 03/28/25 1330 sodium chloride flush injection 10 mL 10 mL IV every 12 hours (2 times daily) Driss Dahl MD10 mL at 03/28/25 2030 sodium chloride flush injection 10 mL 10 mL IV see admin instructions Driss Dahl MD sodium chloride 0.9 % flush bag 25 mL 25 mL IV see admin instructions Driss Dahl MD dextrose 5 % in water 250 mL flush bag 25 mL 25 mL IV see admin instructions Driss Dahl MD acetaminophen (TYLENOL) tablet 650 mg 650 mg Oral every 6 hours PRN Driss Dahl MD 650 mg at03/29/25 0612 naloxone (NARCAN) 0.4 mg/mL injection 0.1 mg 0.1 mg IV see admin instructions Driss Dahl MD ondansetron (ZOFRAN) 4 mg/2 mL injection 4 mg 4 mg IV every 6 hours PRN Driss Dahl MD heparin injection 5,000 Units 5,000 Units subCUT every 8 hours Driss Dahl MD 5,000 Units at03/29/25 0529 cefTRIAXone (ROCEPHIN) 2,000 mg in sodium chloride 0.9% 50 mL IVPB (MBP) 2,000 mg IV every 24 hours(daily) Driss Dahl MD Stopped at 03/28/252102 metroNIDAZOLE (FLAGYL) tablet 500 mg 500 mg Oral every 8 hours Driss Dahl MD 500 mg at 03/29/25 0529 saccharomyces boulardii (FLORASTOR) capsule 250 mg 250 mg Oral BID Driss Dahl MD 250 mg at 03/28/252028 [Held by Provider] clopidogreL (PLAVIX) tablet 75 mg 75 mg Oral daily Driss Dahl MD pantoprazole (PROTONIX) tablet 20 mg 20 mg Oral daily Driss Dahl MD 20 mg at 03/28/25 0954 predniSONE (DELTASONE) tablet 25 mg 25 mg Oral daily WITH breakfast Driss Dahl MD 25 mg at 03/28/25 0954 Allergies: No Known Allergies Family Hx: No family history on file. Social Hx: Social History Socioeconomic History Marital status: Spouse name: Not on file Number of children: Not on file Years of education: Not on file Highest education level: Not on file Occupational History Not on file Tobacco Use Smoking status: Never Smokeless tobacco: Never Vaping Use Vaping status: Never Used Substance and Sexual Activity Alcohol use: Never Drug use: Never Sexual activity: Not Currently Other Topics Concern Not on file Social History Narrative Not on file Social Drivers of Health Food Insecurity: Not on file (03/27/2025) Transportation Needs: No Transportation Needs (03/27/2025) Transportation Needs Patient needs follow up regarding:: 1 Feeling Safe: Not At Risk (03/27/2025) Feeling Safe Patient has indicated abuse: : No Housing Stability: Not on file Review of Systems: Gastrointestinal [] Constipation [] Blood in stool [] Diarrhea [x] Abdominal pain [] Nausea [] Vomiting Constitutional [x] Fatigue [] fever [x] Weakness [] Weight loss Genitourinary [] Blood in urine [] Frequency [] Painful urination [] Urgency Skin [] Itching [] Jaundice / Yellow skin [] Psoriasis / Ecxema [] Rash Musculoskeletal [x] Back pain [x] Joint pain [] Muscle weakness [] Neck pain Head/ENT [] Congestion [] Headaches [] Hearing loss [] Nose Bleeds [] Sore throat Hematologic [] Abnormal bleeding [] Abnormal brusing [] Enlarged lymph nodes [] Use of blood thinners Respiratory [] Cough [] Shortness of breath [] Sputum production [] Wheezing Neurological [] Dizziness [] Loss of consiousness [] Seizures [] Speech chage Cardiovascular [] Chest pain [] Heart failure [] Leg cramps with walking [] Palpitations Psychiatric [] Alcohol use [] Depression [] Nervousness / Anxiety [] Sleep disturbance Physical Exam: Vitals: 03/28/25 2009 03/29/25 0333 03/29/25 0336 03/29/25 0719 BP: 133/80 133/73 (!) 141/65 137/76 BP Location: Right arm Right arm Right arm Right arm Patient Position (BP): Sitting Supine Supine Pulse: 90 73 88 84 Resp: 17 17 18 18 Temp: 99 ??F (37.2 ??C) 97.5 ??F (36.4 ??C) 97.1 ??F (36.2 ??C) 97.2 ??F (36.2 ??C) TempSrc: Temporal Temporal Temporal Oral SpO2: 97% 99% 98% Weight: Height: General appearance: awake, alert, oriented, answers questions appropriately. Over weight. Head: atraumatic, Normocephalic, without obvious abnormality Eyes: conjunctivae/corneas clear, sclera non icteric Neck: neck is supple, trachea is midline. No masses identified. Lungs: clear to auscultation bilaterally, normal respiratory effort Heart: normal rate and rhythm Abdomen: Soft, non-distended. No masses. Tender appropriate no rebound. Extremities: extremities normal, atraumatic, no cyanosis or edema Neurologic: Grossly normal Musculoskeletal: no deformity or swelling Skin: Warm and dry without jaundice Drain: Posterior drain purulent Labs: Lab Results Component Value Date WBC 10.4 03/29/2025 HGB 9.6 (L) 03/29/2025 HCT 30.5 (L) 03/29/2025 PLT 497 (H) 03/29/2025 MCV 98.4 03/29/2025 Lab Results Component Value Date NA 141 03/29/2025 K 3.3 (L) 03/29/2025 CL 107 03/29/2025 CO2 23 03/29/2025 CA 9.6 03/29/2025 BUN 9 03/29/2025 CREAT 0.62 03/29/2025 GLUCOSE 113 (H) 03/29/2025 TOTALPROTEIN 5.4 (L) 03/29/2025 ALBUMIN 2.9 (L) 03/29/2025 BILITOTAL 0.3 03/29/2025 ALKPHOS 124 (H) 03/29/2025 AST 14 03/29/2025 ALT 26 03/29/2025 ANIONGAP 11 03/29/2025 Imaging: Results for orders placed during the hospital encounter of 03/27/25 CT GUIDE PERCUT DRAIN W CATH Narrative PROCEDURES: CT guided pelvic abscess drain placement. Moderate conscious sedation. HISTORY: Pericolonic pelvic abscess OPERATORS: Dr. Jas Gerard HAND HYGIENE: Soap and water. Avagard. CONSENT: The procedures as well as their risks, benefits, and alternatives were discussed in detail with the patient, and the patient given the opportunity to ask any questions. Written informed consent was then obtained. PROCEDURE DETAILS: Patient was placed on the CT table and limited noncontrast CT was performed of the pelvis to assess the trajectory for the percutaneous drain placement. A dimitrios on the skin was made using the noncontrast CT as a guide. Preprocedural timeout was performed. Versed and fentanyl were given IV by a radiology nurse who is a trained independent observer dedicated to patient monitoring during moderate sedation under my supervision. Local anesthetic with 2% lidocaine was infiltrated into the skin along the planned trajectory. Next, a 5 Spanish Yueh needle/catheter combination was advanced using CT fluoroscopy as a guide to the target pelvic abscess and the needle was removed with the catheter remaining in place. Next, through the 5 Spanish catheter a 035 wire was advanced into the targeted fluid collection. Over the wire 5 Spanish catheter was removed and a 10 Fr locking loop pigtail drain was advanced over the wire in expected distance to the fluid collection based on the CT. The inner stylette and wire were removed. The loop was locked. 30 ml of purulent fluid was aspirated from the fluid collection. The new drain was secured to the skin with sutures and placed to drainage. A sterile dressing was applied. Limited noncontrast CT scan immediately post procedure was performed to assess for any immediate complication. The patient tolerated the procedure well with no immediate complications and was in stable condition at the completion of the procedure. ESTIMATED BLOOD LOSS: 1 mL Impression : CT-guided pelvic abscess drain placement. I, Dr. Jas Gerard, certify that I was present for the entire procedure. Assessment: 85 y.o.Female (BMI:Body mass index is 28.93 kg/m??.) with acute sigmoid diverticulitis with abscess Status post IR drainage GERD Oral steroid use Plan: Continue drain management antibiotics. Nothing immediately surgical of the weekend. Colorectal will see patient on Sunday and continue management plans from there. Goal would be to treat conservatively for now ultimately patient needs a colonoscopy evaluation and likely segmental colectomy. Please call if there is any questions or concerns. Medical Decision Making: high Signed: Bo Aleman DO General Surgery Office: * Emma Wilson RN - 03/28/2025 12:40 PM CDTAssociated Order(s): IP CONSULT TO WOUND/SKIN CARE TEAM Images from the original note were not included. Skin/Wound/Ulcer/Pressure Injury Consult [facility] Patient Information Today's Date: 03/28/2025 Name: Javier Stubbs Age: 85 y.o. Date of : 1940 CSN: [id number] Date/time of admission: 03/27/2025 6:59 PM Hospital day: LOS: 1 day Room: [address] [place] [address] Physical Assessment Wound Details: Pressure Injury 03/28/25 Left: heel Deep Tissue Injury (Active) POA Pictures Taken (Date) 03/28/25 03/28/25 09 Pressure Injury Wound Shape round 03/28/25905 Pressure Injury Wound Base purple 03/28/25905 Periwound Area redness 03/28/25905 Wound Edges attached 03/28/25 09 Wound Length-cm. 3.5 cm. 03/28/25 09 Wound Width-cm. 3.5 cm. 03/28/25 09 Wound Depth-cm. 0 cm. 03/28/25905 Wound Surface Area (cm^2) 12.25 cm^2 03/28/25 09 Wound Volume (cm^3) 0 cm. 03/28/25905 Dressing Application silicone border dressing 03/28/25905 Pressure Injury 03/28/25 Right: heel Deep Tissue Injury (Active)POA Pictures Taken (Date) 03/28/25 03/28/25 0906 Dressing Changed Date 03/28/25 03/28/25905 Pressure Injury Wound Shape irregular 03/28/25905 Pressure Injury Wound Base purple;red 03/28/25905 Periwound Area redness 03/28/25905 Wound Edges attached 03/28/25 09 Wound Length-cm. 1 cm. 03/28/25 09 Wound Width-cm. 1.8 cm. 03/28/25 09 Wound Depth-cm. 0 cm. 03/28/25905 Wound Surface Area (cm^2) 1.8 cm^2 07905 Wound Volume (cm^3) 0 cm. 03/28/25905 Dressing Application silicone border dressing 03/28/25905 Pressure Injury 03/28/25 Right: coccyx Deep Tissue Injury (Active)POA Pictures Taken (Date) 03/28/25 03/28/25905 Pressure Injury Wound Shape irregular 03/28/25905 Pressure Injury Wound Base purple;reddened 03/28/25905 Periwound Area redness 03/28/25905 Wound Edges attached 03/28/25905 Wound Length-cm. 2 cm. 03/28/25905 Wound Width-cm. 1.5 cm. 03/28/25905 Wound Depth-cm. 0 cm. 03/28/25905 Wound Surface Area (cm^2) 3 cm^2 03/28/25905 Wound Volume (cm^3) 0 cm. 03/28/25905 Dressing Application silicone border dressing 03/28/25905 ? Mattress/surface type: IsoTour Gel Change surface area to: [place] NOTES: Focused skin assessment per consult order. Nutrition BMI: Body mass index is 28.93 kg/m??. Current diet order: DIET NPO Sips w/Meds, Pressure Injury Prevention Recommendations Turn / reposition at minimum of every 2 hours or more frequently as determined by patient condition When in chair reposition at minimum every 1 hour or more frequently as determined by patient Condition Keep skin clean and free of excess moisture Frequent perineal care for excess moisture and with any soiling Protect and float heels when in bed --as condition allows HOB at lowest level tolerated by patient and medical condition. Do not massage bony prominences. Prevent shearing by utilizing lift sheets and appropriate lift equipment based on patient needs. Skin Assessment every shift ? Wound/Dressing Recommendations Recommendations: Coccyx-Wash with soap and water, pat dry. Apply Desitin BID and PRN as needed. Heels- Cleanse wound with normal saline and pat dry. Apply Mepilex border. Change every 3 days and PRN per soiling. TruVue boots. L steen- Open to air. Primary nurse notified of findings and recommendations. Skin team will not follow general wounds. Pressure injuries to be followed weekly unless otherwise specified. Will need to be re-consulted for new skin concerns. Total time spent: 40 min. Emma Wilson RN Skin/Wound/Ostomy Please call hospital sandfill operator to have skin team paged with questions or needs. Cosigned by Rico Galvan MD at 03/30/2025 1:02 PM CDT * Curtis Cevallos RN - 03/27/2025 9:28 PM CDTAssociated Order(s): IP CONSULT TO IV TEAM VASCULAR ACCESS CONSULT PATIENT NAME: Javier Stubbs DATE OF : 1940 CSN: [id number] DATE: 03/27/2025 Room: [address] [place] [address] Admit Date: 03/27/2025 Hospital day: LOS: 0 days INDICATION: Poor Access EXCLUSIONS/CONSIDERATIONS: none noted in chart LAST RECORDED TEMP: Temp: 97.3 ??F (36.3 ??C) (03/27/25 1900)] Assessment No Known Allergies Lab Results Component Value Date/Time CREAT 0.70 03/27/2025 08:24 PM BUN 8 03/27/2025 08:24 PM NA 140 03/27/2025 08:24 PM K 3.9 03/27/2025 08:24 PM CL 109 (H) 03/27/2025 08:24 PM CO2 22 03/27/2025 08:24 PM GFR >60 03/27/2025 08:24 PM Lab Results Component Value Date/Time WBC 7.3 03/27/2025 08:24 PM HGB 8.5 (L) 03/27/2025 08:24 PM HCT 27.6 (L) 03/27/2025 08:24 PM PLT 373 03/27/2025 08:24 PM MCV 98.9 03/27/2025 08:24 PM Lab Results Component Value Date/Time INR 1.1 03/27/2025 08:24 PM PT 14.7 03/27/2025 08:24 PM No past medical history on file. No past surgical history on file. Current Facility-Administered Medications: sodium chloride flush injection 10 mL, 10 mL, IV, every 12 hours (2 times daily), Driss Dahl MD sodium chloride flush injection 10 mL, 10 mL, IV, see admin instructions, Driss Dahl MD sodium chloride 0.9 % flush bag 25 mL, 25 mL, IV, see admin instructions, Driss Dahl MD dextrose 5 % in water 250 mL flush bag 25 mL, 25 mL, IV, see admin instructions, Driss Dahl MD acetaminophen (TYLENOL) tablet 650 mg, 650 mg, Oral, every 6 hours PRN, Driss Dahl MD, 650 mg at 03/27/252034 naloxone (NARCAN) 0.4 mg/mL injection 0.1 mg, 0.1 mg, IV, see admin instructions, Driss Dahl MD ondansetron (ZOFRAN) 4 mg/2 mL injection 4 mg, 4 mg, IV, every 6 hours PRN, Driss Dahl MD [START ON 03/28/2025] heparin injection 5,000 Units, 5,000 Units, subCUT, every 8 hours, Driss Dahl MD cefTRIAXone (ROCEPHIN) 2,000 mg in sodium chloride 0.9% 50 mL IVPB (MBP), 2,000 mg, IV, every 24 hours (daily), Driss Dahl MD metroNIDAZOLE (FLAGYL) tablet 500 mg, 500 mg, Oral, every 8 hours, Driss Dahl MD saccharomyces boulardii (FLORASTOR) capsule 250 mg, 250 mg, Oral, BID, Driss Dahl MD [Held by Provider] clopidogreL (PLAVIX) tablet 75 mg, 75 mg, Oral, daily, Driss Dahl MD [START ON 03/28/2025] pantoprazole (PROTONIX) tablet 20 mg, 20 mg, Oral, daily, Driss Dahl MD [START ON 03/28/2025] predniSONE (DELTASONE) tablet 25 mg, 25 mg, Oral, daily WITH breakfast, Driss Dahl MD PLAN Insert PIV Curtis Cevallos RN documented in this encounter OR Notes * Operative Report - Jas Gerard MD - 03/28/2025 2:00 PM CDT Post Procedure Vascular/Interventional Radiology Note Pre-Radiology Procedure Diagnosis: Pelvic abscess Technical Procedure: Pelvic abscess drain placement Specimens removed: N/A Estimated Blood Loss: 5 mL Findings: CT guided pelvic abscess drain placed, 10 Fr. Medications: Conscious sedation was performed. Please see separate nursing documentation for dosages. Post-Radiology Procedure Diagnosis: Pelvic abscess drain placement Jas Gerard MD 03/28/25 2:00 PM * Santosh-OP - Jas Gerard MD - 03/28/2025 1:15 PM CDT Pre-Sedation Conscious(Moderate) Record Procedure scheduled: Pelvic abscess drain placement Procedure appropriate history and physical on chart: reviewed Risks, benefits and options of conscious/moderate sedation discussed with patient (and family when appropriate), previous anesthesia experiences reviewed, informed consent obtained: from patient NPO status per policy: npo PROCEDURE CONSENT: The procedure including the purpose and benefits was discussed in detail with the patient and/or healthcare decision maker. The risks were all discussed in detail to include, but not limited to, bleeding, infection, injury to adjacent structures, inability to complete the procedure, and need for additional interventions. All questions were answered, and the decision was made to proceed with the procedure. Airway assessment: Short/fat neck: no Short chin: no Protruding upper teeth: no Neck full ROM: yes Mouth opens>2 fingers: yes History of any airway problems (sleep apnea, appliance/equipment used, airway obstruction, other iedrugs, tobacco: no Allergies No Known Allergies ASA Classification: ASA 3 - Patient with moderate systemic disease with functional limitations Physical Exam: Lungs: No respiratory distress. Heart: Regular rate and rhythm. No pallor or cyanosis. Mental status: Alert, NAD Pre-Induction Reassessment: No change since pre-sedation assessment. Changes are as follows: Not Applicable Jas Gerard MD 03/28/25 1:16 PM documented in this encounter Miscellaneous Notes * Care Plan - Eli Curtis RN - 04/02/2025 11:37 PM CDT Shift Summary Pain management was achieved with HYDROcodone-acetaminophen, leading to improved comfort. Safety measures were effectively implemented, preventing falls or injuries during the shift. Skin integrity was maintained with interventions such as moisture cream and air bed usage. Mobility was supported with assistive devices and repositioning. Overall, the patient showed progress in comfort, safety, and skin integrity. Verbalizes/displays acceptable comfort level or baseline comfort level: Pain was initially reportedwith discomfort and a FLACC score of 4, but after administration of HYDROcodone-acetaminophen, the patient appeared content and relaxed. Safety/Fall: Absence of fall, injury, harm during hospitalization: Safety checks were completed, and the patient was assisted with mobility using an ambulation device and a two-person assist, with nofalls or injuries reported. Maintain skin integrity and/or promote wound healing by discharge: Skin interventions included the application of a topical barrier moisture cream and the use of an air bed, with skin integrity notedas WDL despite excoriation. * Care Plan - Eli Curtis RN - 04/02/2025 11:36 PM CDT Shift Summary Pain management was achieved with HYDROcodone-acetaminophen, leading to improved comfort. Safety measures were effectively implemented, preventing falls or injuries during the shift. Skin integrity was maintained with interventions such as moisture cream and air bed usage. Mobility was supported with assistive devices and repositioning. Overall, the patient showed progress in comfort, safety, and skin integrity. Verbalizes/displays acceptable comfort level or baseline comfort level: Pain was initially reportedwith discomfort and a FLACC score of 4, but after administration of HYDROcodone-acetaminophen, the patient appeared content and relaxed. Safety/Fall: Absence of fall, injury, harm during hospitalization: Safety checks were completed, and the patient was assisted with mobility using an ambulation device and a two-person assist, with nofalls or injuries reported. Maintain skin integrity and/or promote wound healing by discharge: Skin interventions included the application of a topical barrier moisture cream and the use of an air bed, with skin integrity notedas WDL despite excoriation. * Care Plan - Laura Moreira USED CAR SALES SUPERVISOR - 04/02/2025 10:16 AM CDT Sewing Machine Operator Zipper Discharge Planning Expected Discharge Date Apr 02, 2025 Plan Discharge To: Jail Facility (04/02/25916) Plan Discharge To - Alternate: Home Health Services (04/02/25916) Patient likely to discharge to SNF at [facility] today per physician conversation. ADRI spokewith Sophie at the facility who reports they are ready for the patient today. ADRI scheduled EMS on will call while awaiting discharge orders, see below for report & transportation details. 04/02/25 0800 Discharge Planning Transportation Provider [facility] Transportation Contact Name William Transportation Provider Phone [phone] Final Discharge Arrangements Final Discharge Disposition SNF Care Facility Name [facility] Care Facility Contact Name Tejas El nursing staff Care Facility Phone Number P:[phone] F:[phone] Services Arranged For Discharge residential facility (SNF) Date Of Pick-Up 04/02/25 Time Of Pick-Up 1130 Copy of this transfer form will be sent with patient along with: AVS;Pertinent Medical Records ADD: ADRI contacted William at [facility] to update the patient will be ready at 1130 for transfer. Referrals Status: Facility Referrals - Accepted and Selected Destination - Admitted Since 03/27/2025 Service Provider Services Address Phone Fax Patient Preferred [facility] [address] [place] [address] [phone] -- Home Health/Hospice - Accepted Follow-up on Referrals Sent: Yes (04/02/25916) Preferred Pharmacy: [facility] [place], [place] - [address] Patient / Family Communications: Patient/Family Communications: Confirmed Discharge Plan (04/02/25916) Discharge Plan Agreed Upon: Patient;Family member (04/02/25916) Resources Provided: Resource List Given: Care facilities (04/01/25 1216) Resource List Given To: Family member;Patient (04/01/25 121) Information Given Concerning: Criteria for (skilled) nursing facility;Medicare benefits (04/01/251215) Transportation Plan: Has discharge transport been arranged?: Yes (04/02/25916) Transportation Provider: [facility] (04/02/25799) Transportation Contact Name: William (04/02/25799) Transportation Provider Phone: [phone] (04/02/25799) Date Of Pick-Up: 04/02/25 (04/02/25799) Time Of Pick-Up: (Will call) (04/02/25799) XIMENA Bruno * Care Plan - Thelma Son RN - 04/01/2025 6:04 PM CDT Shift Summary Discharge planning was discussed with the patient and family, with arrangements made for transfer to a custodial facility. Pain in the gluteal area decreased slightly from a rating of 5 to 4 at rest, with interventions including medication administration. Safety checks were completed throughout the shift, and the patient was assisted with mobility usinga gait belt and ambulation device. Pressure injuries on the left heel and right coccyx were treated with moisture barrier cream and silicone border dressing, with no change in wound condition noted. Overall, the patient was prepared for discharge to a custodial facility with pain management and safety measures in place. Verbalizes/displays acceptable comfort level or baseline comfort level: Pain in the gluteal area decreased slightly from a rating of 5 to 4 at rest, with interventions including medication administration. Safety/Fall: Absence of fall, injury, harm during hospitalization: Safety checks were completed throughout the shift, and the patient was assisted with mobility using a gait belt and ambulation device. Identify discharge needs upon admission and through discharge: Discharge planning was discussed with the patient and family, with arrangements made for transfer to a custodial facility. Maintain skin integrity and/or promote wound healing by discharge: Pressure injuries on the left heel and right coccyx were treated with moisture barrier cream and silicone border dressing, with no change in wound condition noted. * Care Plan - Priscila Pineda, Occupational Therapist - 04/01/2025 2:[address] [facility] - Therapy Services [address] [address]. Acute Occupational Therapy Treatment 04/01/2025 Room: [address] [place] [address] Name: Javier Stubbs Age: 85 y.o. Patient Class: Inpatient Date of : 1940 Insurance: Payor: MEDICARE / Plan: MEDICARE PART A AND B / Product Type: Medicare / Prior to OT session thorough chart review completed, including prior OT notes as applicable. Consent to treat provided by patient and nurse Date of admission: 03/27/2025 SUBJECTIVE Patient Statements Information provided by: patient Patient/family comments: Patient agreeable to therapy, minimal verbalizations throughout session Pain: Refer to flowsheet for documentation of pain and interventions. OBJECTIVE Cognition Level of alertness: drowsy Orientation: NT Command following: fair required frequent repeated cues, slow processing Safety awareness: fair; limited by slow processing, decreased problem solving, decreased insight into deficits, decreased attention, and hearing deficits Memory: NT Occupational Performance Activities of Daily Living Grooming: attempted to complete standing at sink from chair but unable due to fatigue and patient leaning on counter with heavy assist from therapist to stand, supervision for setup to complete oral care seated in chair Lower extremity dressing: maximal assistance seated in chair to don B socks Functional Mobility All mobility completed with gait belt, non-skid socks, and walker Sit to stand: maximal assistance from chair with 2WW Sitting balance: supervision for static tasks and dynamic tasks in chair Standing balance: maximal assistance for static tasks with BUE supported ~90 seconds at sink. Patient instantly leaned forward with heavy reliance on BUE, kyphotic and unable to fully stand [facility] Daily Activity How much help from another person does the patient currently need? Score 1. Putting on and taking off regular lower body clothing? 2 - A lot (max to mod assist) 2. Bathing (including washing, rinsing, drying)? 2 - A lot (max to mod assist) 3. Toileting, which includes using toilet, bedpan or urinal? 2 - A lot (max to mod assist) 4. Putting on and taking off regular upper body clothing? 3 - A little (supervision to min assist) 5. Taking care of personal grooming such as brushing teeth? 3 - A little (supervision to min assist) 6. Eating meals? 3 - A little (supervision to min assist) Total score 15/24 0-19 indicates likely facility discharge 19-24 indicates likely community discharge *Scores determined based on patient report, observation or professional expertise* Additional Interventions No additional treatment provided during this session Education provided to patient regarding treatment plan and session goals Education response: verbalized understanding Vitals Current O2 requirement: room air Vital signs stable throughout. Precautions Patient precautions: fall Patient bracing/orthotics: none Weight bearing: no restrictions ASSESSMENT & PLAN Assessment Patient is progressing towards care plan goals. Patient is currently functioning below her prior level of function. Plan Continue with plan of care as previously established until patient goals are met or the patient discharges as decreased activity tolerance, decreased UE strength, decreased UE ROM, decreased functional standing balance, high fall risk, decreased functional cognition, decreased safety awareness, medical complexity, and pain continue to limit patient's occupational performance. Anticipate ongoing OT treatment sessions with specific focus on functional standing balance, functional transfers, OOB ADL training For ongoing assessment of current treatment plan: chart, goals and treatment plan reviewed. Goals, treatment plan and plan of care frequency remain appropriate. Recommendations Based on OT assessment of patient's ability to complete self-care tasks and their AM-PAC Daily Activity Score, anticipated discharge disposition: residential facility (04/01/251338) Rationale: Patient needs daily (weekday) skilled OT services. Anticipate tolerance is limited for intensive or adapted intensive rehab program and extended recovery time needed.. * The final discharge location is determined through physician, case management, and patient/caregiver input along with i nsurance authorization of skilled services when appropriate OT recommended DME and AE upon discharge: To be determined (04/01/251338) at next level of care Other (comment in note) (04/01/251338) TBD Nursing Staff Mobility Recommendations Recommended daily activity during admission: toileting on BSC, up to chair for meals, and assist x 2 for safety Disposition At start of session, patient found seated in chair At end of session, patient left seated in chair, call light in reach, phone in reach, patient instructed not to get up without staff assistance, and staff notified of patient location/events of session Further treatment notes and therapeutic goals can be found in Care Plan Notes. If the patient discharges from facility before another therapy visit, this shall serve as therapy discharge summary. Thank you for this referral, Priscila Pineda, Occupational Therapist * Care Plan - Laura Moreira BSW - 04/01/2025 12:16 PM CDT Sewing Machine Operator Zipper Discharge Planning Expected Discharge Date Apr 02, 2025 Plan Discharge To: Jail Facility (04/01/251215) Plan Discharge To - Alternate: Home Health Services (04/01/251215) Patient likely to discharge to SNF when medically stable & an accepting facility found. ADRI spoke with patient & son who are now agreeable to SNF placement. Family requesting referrals be [facility]. ADRI faxed referrals to 1. [facility], 2. [facility] & 3. [facility]. ADRI faxed referrals and is awaiting response. ADRI completed the DA-124 for the patient. The return code is [id number]. ADRI sent an email with link & code to attending physician for signature. ADD: ADRI received a call from [facility] who reports they can accept the patient for tomorrow. Patient also accepted by [facility] although family requesting the higher rated facility. Referrals Status: Facility Referrals - Pending Home Health/Hospice - Accepted Follow-up on Referrals Sent: Yes (04/01/251215) Preferred Pharmacy: [facility], [place] - [address] Patient / Family Communications: Patient/Family Communications: Confirmed Discharge Plan (04/01/251215) Discharge Plan Agreed Upon: Patient;Family member (04/01/251215) Resources Provided: Resource List Given: Care facilities (04/01/251215) Resource List Given To: Family member;Patient (04/01/25 1216) Information Given Concerning: Criteria for (skilled) nursing facility;Medicare benefits (04/01/25 1216) XIMENA Bruno * Care Plan - Eli Curtis RN - 04/01/2025 5:02 AM CDT Shift Summary HYDROcodone-acetaminophen was administered at 8:40 PM for pain management. Pain levels increased at 12:28 AM but decreased by 3:00 AM. Safety checks were consistently completed, and high fall risk interventions were maintained. Skin integrity remained stable with no changes in excoriation noted. Overall, the patient's condition remained stable with effective pain management and safety measuresin place. Verbalizes/displays acceptable comfort level or baseline comfort level: Pain levels fluctuated during the shift, with an increase in discomfort noted at 12:28 AM, followed by a decrease by 3:00 AM after administration of HYDROcodone- acetaminophen at 8:40 PM. Safety/Fall: Absence of fall, injury, harm during hospitalization: Safety checks were consistently completed throughout the shift, and high fall risk interventions were maintained. Maintain skin integrity and/or promote wound healing by discharge: Skin integrity remained stable with no changes in excoriation noted, and interventions such as turning and repositioning were implemented. * Care Plan - Karolyn Stout GN - 03/31/2025 6:25 PM CDT Shift Summary Abnormal vitals were recorded at the beginning of the shift, but improved by midday. PredniSONE was administered in the morning. Amoxicillin-clavulanate was administered in the afternoon. Pain was addressed with HYDROcodone-acetaminophen administration. Overall, the patient's status remained stable with consistent interventions for infection prevention and fall risk management. Infection Risk/Actual: Infection prevention, control, or resolution by discharge: Suspected infection status remained consistent throughout the shift, and amoxicillin-clavulanate was administered at 12:17 PM. Safety/Fall: Absence of fall, injury, harm during hospitalization: Fall risk was consistently acknowledged, and interventions such as the use of a gait belt and low low bed were maintained. * Care Plan - Lauar Moreira BSW - 03/31/2025 4:24 PM CDT Sewing Machine Operator Zipper Discharge Planning Expected Discharge Date Apr 01, 2025 Plan Discharge To: Home Health Services (03/28/251233) Plan Discharge To - Alternate: Home with family assist (03/28/251233) Family/Caregiver Assist Does the patient have family and/or a caregiver that is willing, able and available to assist if needed?: Yes (03/28/251233) Name and Relation: Tom Tracy (03/28/251233) Patient likely to discharge Home w/ [facility] services with [facility] when medically stable. ADRI spoke with Sophie at the [facility] who reports they can accept the patient although need an order & the name of PCP provider prior to scheduling services. ADRI left a voicemail message for patient'ssonDemarcus, requesting a return call. ADD: ADRI spoke with patient & patient son who report the PCP is Dr. Canchola with [facility]. ADRI contacted Sophie with the [facility] and updated on above. Referrals Status: Home Health/Hospice - Accepted and Selected Home Medical Care - Admitted Since 03/27/2025 Service Provider Services Address Phone Fax Patient Preferred [facility] [address] [address] [phone] -- Preferred Pharmacy: [facility] [place], [place] - [address] Patient / Family Communications: Patient/Family Communications: Plan Discharge To Update (03/28/251233) Discharge Plan Agreed Upon: Family member (03/28/251233) Resources Provided: Resource List Given: Home health agencies;Durable medical equipment (03/28/251233) Resource List Given To: Family member (03/28/251233) Information Given Concerning: Criteria for home health;Medicare benefits (03/28/25 1234) XIMENA Bruno * Care Plan - Carmen Jeong LPN - 03/31/2025 5:46 AM CDT Shift Summary Pain increased significantly by chinese instructor, requiring administration of HYDROcodone-acetaminophen. EKG 12-LEAD was performed in the evening. XR PELVIS 1 OR 2 VW showed no acute osseous findings. Safety checks and high fall risk interventions were consistently completed. Overall, the patient experienced increased pain but remained safe from falls or injuries. Verbalizes/displays acceptable comfort level or baseline comfort level: Pain was mild at the beginning of the shift but increased significantly by chinese instructor, with the patient showing nonverbal indicators of pain such as anxiety and crying. HYDROcodone-acetaminophen was administered for pain relief. Safety/Fall: Absence of fall, injury, harm during hospitalization: Safety checks and high fall riskinterventions were consistently completed throughout the shift, with no additional individualized interventions needed. * Care Plan - Karolyn Stout GN - 03/30/2025 6:08 PM CDT Shift Summary Dressing changes and wound care were performed for pressure injuries on the heels and coccyx. Venelex topical as added to be placed under the mepilex's on this patients heels. Pain was managed effectively with medication, and no discomfort was reported. Safety measures were upheld, including fall risk interventions and regular safety checks. Skin integrity was addressed with excoriation noted and interventions applied. Overall, the patient maintained a stable condition with effective pain management and safety precautions. Verbalizes/displays acceptable comfort level or baseline comfort level: Pain was consistently denied throughout the shift, and relief was verbalized after administration of HYDROcodone-acetaminophen. Safety/Fall: Absence of fall, injury, harm during hospitalization: Safety checks were completed, and fall risk interventions such as a low low bed were maintained throughout the shift. Maintain skin integrity and/or promote wound healing by discharge: Excoriation was noted, and skin interventions included changing linens and applying topical barrier moisture cream. * Care Plan - Carmen Jeong LPN - 03/30/2025 6:06 AM CDT Shift Summary Pain was managed effectively with medication, maintaining mild levels throughout the shift. High fall risk interventions were completed, ensuring no falls or injuries occurred. Wound assessments showed no changes, with dressings remaining intact and dry. Comprehensive metabolic panel was conducted, revealing some abnormal values. Overall, the patient maintained stable conditions with effective pain management and safety measures in place. Verbalizes/displays acceptable comfort level or baseline comfort level: Pain levels remained mild throughout the shift, with a temporary increase at 12:31 AM, which was addressed with HYDROcodone-acetaminophen administration, resulting in a return to mild pain levels. Safety/Fall: Absence of fall, injury, harm during hospitalization: High fall risk interventions were consistently completed, and no falls or injuries were reported during the shift. Maintain skin integrity and/or promote wound healing by discharge: Wounds on the left and right heels and coccyx remained unchanged with redness and attached wound edges, and dressings remained dry and intact. * Care Plan - Carmen Jeong LPN - 03/29/2025 6:10 AM CDT Shift Summary Pain was managed effectively with medication, resulting in a relaxed and content state. High fall risk interventions were maintained throughout the shift, ensuring patient safety. Pressure injuries on the left heel, right heel, and coccyx showed no changes, with dressings remaining intact. Comprehensive metabolic panel and magnesium level tests were conducted. Overall, the patient maintained stable pain levels and safety measures were effectively implemented. Verbalizes/displays acceptable comfort level or baseline comfort level: Pain levels remained mild throughout the shift, with HYDROcodone-acetaminophen administered twice, resulting in a relaxed and content state. Safety/Fall: Absence of fall, injury, harm during hospitalization: High fall risk interventions were consistently completed, and safety checks were performed regularly, maintaining a low low bed setup. Maintain skin integrity and/or promote wound healing by discharge: The condition of the pressure injuries on the left heel, right heel, and coccyx remained stable with no changes in redness or wound edges, and dressings remained dry and intact. * Care Plan - Garth La MD - 03/28/2025 5:30 PM CDT Consult for colorectal surgery received today regarding diverticular abscess. Agree with percutaneous drain and antibiotics for now. Will ask Dr. Marroquin to see on Sunday for longer term management. * Care Plan - Carla Vasquez RN - 03/28/2025 8:31 AM CDT Care Management Initial Assessment Initial Discharge Planning Assessment completed. Discussed Care Management's role and Discharge planning. Plan Discharge To: Home Health Services Plan Discharge To - Alternate: Home with family assist Does the patient have family and/or a caregiver that is willing, able and available to assist if needed? Yes - Name/Relation:Son Demarcus Comments: Nhi lives with son Demarcus, he is her animal ride attendant. He reports her mobility as well as hermentation has been declining for the past few weeks. He says normally she gets around well with herseated walker. He believes the decline is d/t infection and is hopeful she can get back to where she was before. He would like for her to return home, with [facility] if recommended. He has no preference, referrals sent out. His niece will also be coming by to help at home. CM team to continue to follow Patient Discharge Planning Goal: Get better Patient will potentially discharge to a SNF/NH? No Care Management visited with: Flaquita via in person. Prior to admission, patient resides at: friend/relative home. Patient resides in a single story home with 4 stairs to enter. Patient's bedroom and bathroom are located on the same floor. Prior to admission, living arrangements: family/friend. Prior to admission, patient's functional level:independent; uses wheeled walker for mobility; needsassistance with iADLs: meal preparation, transportation, shopping, running errands, housekeeping, and managing finances Community Ambulator: yes Prior to admission, the patient has the following DME? Yes wheeled walker Services in the home/community: none Receives hemodialysis? No Emergency contact(s): Extended Emergency Contact Information Primary Emergency Contact: Demarcus Cline Address: [address] [address] [facility] Mobile Relation: Son Prescription coverage: yes Preferred Pharmacy verified: [facility] [place], [place] - [address] Insurance coverage verified: Payor: MEDICARE / Plan: MEDICARE PART A AND B / Product Type: Medicare/ Secondary Insurance:[facility] Medicaid Status: NA Has VA Benefits: no Employment Status: retired PCP verified as: No primary care provider on file. Patient has not had a stay at an acute care hospital in the last 30 days. Recent Falls?: Last Known Fall: No falls Plan for transportation at discharge: Family Care Management contact information provided. Care Management will continue to follow and assist asneeded. * Care Plan - Curtis Cevallos RN - 03/27/2025 9:47 PM CDT Problem: Infection, Risk/Actual (Adult) Goal: Infection, Risk/Actual: Infection Prevention/Resolution/Control Description: Patient will demonstrate the desired outcomes. Note: Javier 's peripheral IV will remain free from infection. documented in this encounter Plan of Treatment Upcoming Encounters Date Type Department Care Team (Late st Contact Info) Description 04/22/2025 9:45 AM CDT Office Visit [facility] [address] [address] [place] [address] Tucker Marroquin MD [address] [place] [address] (work) Scheduled Referrals Name Type Priority Associated Diagnoses Orde r Schedule AMB REFERRAL TO COLORECTAL SURGERY Outpatient Referral Routine Sigmoid diverticulitis Ordered: 04/02/2025 documented as of this encounter Procedures Procedure Name Priority Date/Time Associated Diagnosis Comments TELEMETRY REPORT 04/03/2025 3:03 PM CDT CBC WITH DIFFERENTIAL Routine 04/02/2025 6:08 AM CDT COMPREHENSIVE METABOLIC PANEL Routine 04/02/2025 6:08 AM CDT XR PELVIS 1 OR 2 VW Routine 03/30/2025 6 :44 PM CDT COMPREHENSIVE METABOLIC PANEL Routine 03/30/2025 1:09 AM CDT CBC WITH DIFFERENTIAL Routine 03/29/2025 3:36 AM CDT MAGNESIUM LEVEL Routine 03/29/2025 3:36 AM CDT COMPREHENSIVE METABOLIC PANEL Routine 03/29/2025 3:[address] GUIDE PERCUT DRAIN W CATH Routine 03/28/2025 2:47 PM CDT ANAEROBIC/AEROBIC CULTURE W GRAM STAIN Routine 03/28/2025 2:03 PM CDT CBC WITHOUT DIFFERENTIAL Routine 03/28/2025 5:12 AM CDT BASIC METABOLIC PANEL Routine 03/28/2025 5:12 AM CDT EKG 12-LEAD Routine 03/28/2025 4:40 AM CDT EXTRA TUBE (URINE PRINCE) Routine 03/28/2025 12:06 AM CDT URINALYSIS W/REFLEX MICROSCOPIC Routine 03/28/2025 12:06 AM CDT URINE CULTURE Routine 03/28/2025 12:06 AM CDT IRON, TIBC, AND PERCENT SATURATION Routine 03/27/2025 8:24 PM CDT CBC WITH DIFFERENTIAL Routine 03/27/2025 8:24 PM CDT PROTIME-INR Routine 03/27/2025 8:24 PM CDT FERRITIN Routine 03/27/2025 8:24 PM CDT COMPREHENSIVE METABOLIC PANEL Routine 03/27/2025 8:24 PM CDT TYPE AND SCREEN Routine 03/27/2025 8:21 PM CDT XR CHEST PA OR AP 1 VW Routine 7:37 PM CDT documented in this encounter Results * TELEMETRY REPORT (04/03/2025 3:03 PM CDT) us Provider Scanning ECG ORDERABLES Final Result * (ABNORMAL) COMPREHENSIVE METABOLIC PANEL (04/02/2025 6:08 AM CDT) SODIUM 140 136 - 145 mmol/L 04/02/2025 6:54 AM CDT [facility] POTASSIUM 4.0 3.5 - 5.1 mmol/L 04/02/2025 6:54 AM CDT [facility] CHLORIDE 109(H) 98 - 107 mmol/L 04/02/2025 6:54 AM CDT [facility] CO2 23 22 - 29 mmol/L 04/02/2025 6:54 AM CDT [facility] CALCIUM 10.0 8.8 - 10.2 mg/dL 04/02/2025 6:54 AM CDT [facility] BUN 9 8 - 23 mg/dL 04/02/2025 6:54 AM CDT [facility] CREATININE 0.65 0.51 - 0.95 mg/dL 04/02/2025 6:54 AM CDT [facility] Comment:The GFR result is no t clinically significant on patients <18 or >70 years of age. GLUCOSE 82 74 - 99 mg/dL 04/02/2025 6:54 AM T [facility] TOTAL PROTEIN 5.2(L) 6.4 - 8.3 g/dL 04/02/2025 6:54 AM [facility] ALBUMIN 2.7(L) 3.5 - 5.2 g/dL 04/02/2025 6:54 AM [facility] BILIRUBIN TOTAL 0.5 0.0 - 1.0 mg/dL 04/02/2025 6:54 AM [facility] ALKALINE PHOSPHATASE 160(H) 35 - 104 U/L 04/02/2025 6:54 AM [facility] AST 14 10 - 35 U/L 04/02/2025 6:54 AM [facility] ALT 19 <=35 U/L 04/02/2025 6:54 AM [facility] GFR >60 mL/min/1.7 3 sq meter 04/02/2025 6:54 AM [facility] Comment:eGFR calculated with 2020 CKD-EPI equation. Vegetarian diet, extremely high or low muscle mass, and may affect results. Cystatin C with Glomerular Filtration Rate is a suitable alternative for these patients. ANION GAP 8(L) 9 - 20 mmol/L 04/02/2025 6:54 AM [facility] Blood Venipuncture / Unknown 04/02/2025 6:08 AM CDT 04/02/2025 6:17 AM CDT us Rico Galvan MD CHEMISTRY ORDERABLES Final R esult [facility] CLIA # [id number] [address] [place] [id number] * (ABNORMAL) CBC WITH DIFFERENTIAL (04/02/2025 6:08 AM CDT) WBC 13.3(H) 4.8 - 10.8 K/uL 04/02/2025 6:23 AM [facility] RBC 2.95(L) 4.20 - 5.40 M/uL 04/02/2025 6:23 AM [facility] HEMOGLOBIN 9.1(L) 12.0 - 16.0 g/dL 04/02/2025 6:23 AM [facility] HEMATOCRIT 28.8(L) 36.0 - 46.0 % 04/02/2025 6:23 AM [facility] MCV 97.6 84.0 - 103.0 fL 04/02/2025 6:23 AM [facility] MCH 30.8 27.0 - 34.0 pg 04/02/2025 6:23 AM [facility] MCHC 31.6 30.0 - 35.0 g/dL 04/02/2025 6:23 AM [facility] PLATELETS 548(H) 140 - 440 K/uL 04/02/2025 6:23 AM [facility] MPV 10.0 8.9 - 12.8 fL 04/02/2025 6:23 AM [facility] RDW 15.2(H) 11.0 - 14.5 % 04/02/2025 6:23 AM [facility] RDW-STDEV 54.4(H) 37.0 - 54.0 fL 04/02/2025 6:23 AM [facility] NEUTROPHILS 83(H) 42 - 75 % 04/02/2025 6:23 AM [facility] LYMPHOCYTES 11(L) 24 - 44 % 04/02/2025 6:23 AM [facility] MONOCYTES 5 2 - 10 % 04/02/2025 6:23 AM [facility] Re-Compose [facility] EOSINOPHILS 0 0 - 7 % 04/02/2025 6:23 AM [facility] BASOPHILS 0 0 - 1 % 04/02/2025 6:23 AM [facility] IMMATURE GRANULOCYTES 1 0 - 2 % 04/02/2025 6:23 AM CDT [facility] NEUTROPHIL ABSOLUTE 11.06(H) 2.00 - 8.00 K/uL 04/02/2025 6:23 AM CDT [facility] LYMPHOCYTE ABSOLUTE 1.43 1.20 - 4.00 K/uL 04/02/2025 6:23 AM CDT [facility] MONOCYTE ABSOLUTE 0.72(H) 0.10 - 0.60 K/uL 04/02/2025 6:23 AM CDT [facility] EOSINOPHIL ABSOLUTE 0.01 0.00 - 0.70 K/uL 04/02/2025 6:23 AM CDT [facility] BASOPHILS ABSOLUTE 0.01 0.00 - 0.20 K/uL 04/02/2025 6:23 AM CDT [facility] IMMATURE GRANULOCYTES ABSOLUTE 0.07 0.00 - 0.10 K/uL 04/02/2025 6:23 AM T [facility] SMEAR REVIEWED: NA - Not Applicable 04/02/2025 6:23 AM CDT [facility] Blood Venipuncture / Unknown 04/02/2025 6:08 AM CDT 04/02/2025 6:16 AM CDT Rico Galvan MD HEMATOLOGY ORDERABLES Final Result Performing Organization Address City/State/[facility] Co de Phone Number [facility] CLIA # [id number] [address] [place] [id number] * XR PELVIS 1 OR 2 VW (03/30/2025 6:44 PM CDT) Anatomical Region Laterality Modality Pelvis Computed Radiogr aphy 03/30/2025 6:44 PM CDT Impressions 03/30/2025 8:26 PM CDT IMPRESSION: No acute osseous findings. Narrative 03/30/2025 8:26 PM CDT Exam: XR PELVIS 1 OR 2 VW Date/Time of Exam: 03/30/2025 6:44 PM Reason For Exam: Arthritis;Pain. Diagnosis: Laboratory test. Findings: A percutaneous pigtail drain is present in the left pelvis. The bony structures are intact. No fracture or subluxation. There is mild bilateral hip joint space narrowing and osteophyte formation. Degenerative changes are noted in the lumbar spine. Procedure Note Abhijit Abrams MD - 03/30/2025 Exam: XR PELVIS 1 OR 2 VW Date/Time of Exam: 03/30/2025 6:44 PM Reason For Exam: Arthritis;Pain. Diagnosis: Laboratory test. Findings: A percutaneous pigtail drain is present in the left pelvis. The bony structures are intact. No fracture or subluxation. There is mild bilateral hip joint space narrowing and osteophyte formation. Degenerative changes are noted in the lumbar spine. IMPRESSION: No acute osseous findings. Rico Galvan MD DIAGNOSTIC IMAGING ORDERABLE S Final Result * (ABNORMAL) COMPREHENSIVE METABOLIC PANEL (03/30/2025 1:09 AM CDT) Pathologist [facility] SODIUM 140 136 - 145 mmol/L 03/30/2025 2:11 AM CDT [facility] POTASSIUM 4.1 3.5 - 5.1 mmol/L 03/30/2025 2:11 AM CDT [facility] CHLORIDE 109(H) 98 - 107 mmol/L 03/30/2025 2:11 AM CDT [facility] CO2 21(L) 22 - 29 mmol/L 03/30/2025 2:11 AM CDT [facility] CALCIUM 9.7 8.8 - 10.2 mg/dL 03/30/2025 2:11 AM CDT [facility] BUN 9 8 - 23 mg/dL 03/30/2025 2:11 AM CDT [facility] CREATININE 0.58 0.51 - 0.95 mg/dL 03/30/2025 2:11 AM CDT [facility] Comment:The GFR result is no t clinically significant on patients <18 or >70 years of age. GLUCOSE 137(H) 74 - 99 mg/dL 03/30/2025 2:11 AM T [facility] TOTAL PROTEIN 5.3(L) 6.4 - 8.3 g/dL 03/30/2025 2:11 AM T [facility] ALBUMIN 2.9(L) 3.5 - 5.2 g/dL 03/30/2025 2:11 AM T [facility] BILIRUBIN TOTAL 0.3 0.0 - 1.0 mg/dL 03/30/2025 2:11 AM T [facility] ALKALINE PHOSPHATASE 134(H) 35 - 104 U/L 03/30/2025 2:11 AM T [facility] AST 10 10 - 35 U/L 03/30/2025 2:11 AM [facility] ALT 24 <=35 U/L 03/30/2025 2:11 AM [facility] GFR >60 mL/min/1.7 3 sq meter 03/30/2025 2:11 AM [facility] Comment:eGFR calculated with 2020 CKD-EPI equation. Vegetarian diet, extremely high or low muscle mass, and may affect results. Cystatin C with Glomerular Filtration Rate is a suitable alternative for these patients. ANION GAP 10 9 - 20 mmol/L 03/30/2025 2:11 AM [facility] Blood Venipuncture / Unknown 03/30/2025 1:09 AM CDT 03/30/2025 1:40 AM CDT Rico Galvan MD CHEMISTRY ORDERABLES Final R esult [facility] CLIA # [id number] [address] [place] [id number] * MAGNESIUM LEVEL (03/29/2025 3:36 AM CDT) MAGNESIUM 2.0 1.6 - 2.4 mg/dL 03/29/2025 4:47 AM T [facility] Blood Venipuncture / Unknown 03/29/2025 3:36 AM CDT 03/29/2025 4:10 AM CDT Rico Galvan MD CHEMISTRY ORDERABLES Final R esult [facility] # [id number] [facility] [address] [place] [address] * (ABNORMAL) COMPREHENSIVE METABOLIC PANEL (03/29/2025 3:36 AM CDT) Pathologist [facility] SODIUM 141 136 - 145 mmol/L 03/29/2025 4:47 AM CDT [facility] POTASSIUM 3.3(L) 3.5 - 5.1 mmol/L 03/29/2025 4:47 AM T [facility] CHLORIDE 107 98 - 107 mmol/L 03/29/2025 4:47 AM T [facility] CO2 23 22 - 29 mmol/L 03/29/2025 4:47 AM T [facility] CALCIUM 9.6 8.8 - 10.2 mg/dL 03/29/2025 4:47 AM T [facility] BUN 9 8 - 23 mg/dL 03/29/2025 4:47 AM T [facility] CREATININE 0.62 0.51 - 0.95 mg/dL 03/29/2025 4:47 AM T [facility] Comment:The GFR result is no t clinically significant on patients <18 or >70 years of age. GLUCOSE 113(H) 74 - 99 mg/dL 03/29/2025 4:47 AM T [facility] TOTAL PROTEIN 5.4(L) 6.4 - 8.3 g/dL 03/29/2025 4:47 AM [facility] ALBUMIN 2.9(L) 3.5 - 5.2 g/dL 03/29/2025 4:47 AM T [facility] BILIRUBIN TOTAL 0.3 0.0 - 1.0 mg/dL 03/29/2025 4:47 AM CDT [facility] ALKALINE PHOSPHATASE 124(H) 35 - 104 U/L 03/29/2025 4:47 AM CDT [facility] AST 14 10 - 35 U/L 03/29/2025 4:47 AM CDT [facility] ALT 26 <=35 U/L 03/29/2025 4:47 AM T [facility] GFR >60 mL/min/1.7 3 sq meter 03/29/2025 4:47 AM T [facility] Comment:eGFR calculated with 2020 CKD-EPI equation. Vegetarian diet, extremely high or low muscle mass, and may affect results. Cystatin C with Glomerular Filtration Rate is a suitable alternative for these patients. ANION GAP 11 9 - 20 mmol/L 03/29/2025 4:47 AM [facility] Blood Venipuncture / Unknown 03/29/2025 3:36 AM CDT 03/29/2025 4:10 AM CDT us Rico Galvan MD CHEMISTRY ORDERABLES Final R esult [facility] CLIA # [id number] [address] [place] [id number] * (ABNORMAL) CBC WITH DIFFERENTIAL (03/29/2025 3:36 AM CDT) Pathologist [facility] WBC 10.4 4.8 - 10.8 K/uL 03/29/2025 4:13 AM CDT [facility] RBC 3.10(L) 4.20 - 5.40 M/uL 03/29/2025 4:13 AM CDT [facility] HEMOGLOBIN 9.6(L) 12.0 - 16.0 g/dL 03/29/2025 4:13 AM CDT [facility] HEMATOCRIT 30.5(L) 36.0 - 46.0 % 03/29/2025 4:13 AM [facility] MCV 98.4 84.0 - 103.0 fL 03/29/2025 4:13 AM [facility] MCH 31.0 27.0 - 34.0 pg 03/29/2025 4:13 AM [facility] MCHC 31.5 30.0 - 35.0 g/dL 03/29/2025 4:13 AM [facility] PLATELETS 497(H) 140 - 440 K/uL 03/29/2025 4:13 AM [facility] MPV 10.4 8.9 - 12.8 fL 03/29/2025 4:13 AM [facility] RDW 14.0 11.0 - 14.5 % 03/29/2025 4:13 AM [facility] RDW-STDEV 50.3 37.0 - 54.0 fL 03/29/2025 4:13 AM [facility] NEUTROPHILS 79(H) 42 - 75 % 03/29/2025 4:13 AM [facility] LYMPHOCYTES 13(L) 24 - 44 % 03/29/2025 4:13 AM [facility] MONOCYTES 7 2 - 10 % 03/29/2025 4:13 AM [facility] EOSINOPHILS 0 0 - 7 % 03/29/2025 4:13 AM [facility] BASOPHILS 0 0 - 1 % 03/29/2025 4:13 AM [facility] IMMATURE GRANULOCYTES 0 0 - 2 % 03/29/2025 4:13 AM [facility] NEUTROPHIL ABSOLUTE 8.22(H) 2.00 - 8.00 K/uL 03/29/2025 4:13 AM [facility] LYMPHOCYTE ABSOLUTE 1.39 1.20 - 4.00 K/uL 03/29/2025 4:13 AM [facility] MONOCYTE ABSOLUTE 0.69(H) 0.10 - 0.60 K/uL 03/29/2025 4:13 AM CDT [facility] EOSINOPHIL ABSOLUTE 0.01 0.00 - 0.70 K/uL 03/29/2025 4:13 AM CDT [facility] BASOPHILS ABSOLUTE 0.01 0.00 - 0.20 K/uL 03/29/2025 4:13 AM CDT [facility] IMMATURE GRANULOCYTES ABSOLUTE 0.04 0.00 - 0.10 K/uL 03/29/2025 4:13 AM CDT [facility] SMEAR REVIEWED: NA - Not Applicable 03/29/2025 4:13 AM CDT [facility] Blood Venipuncture / Unknown 03/29/2025 3:36 AM CDT 03/29/2025 4:06 AM CDT us Rico Galvan MD HEMATOLOGY ORDERABLES Final Result [facility] CLIA # [id number] [address] [place] [id number] * CT GUIDE PERCUT DRAIN W CATH (03/28/2025 2:47 PM CDT) Anatomical Region Laterality Modality Computed Tomogra phy 03/28/2025 1:30 PM CDT Impressions 03/28/2025 3:14 PM CDT IMPRESSION: CT-guided pelvic abscess drain placement. I, Dr. Jas Gerard, certify that I was present for the entire procedure. Narrative 03/28/2025 3:14 PM CDT PROCEDURES: CT guided pelvic abscess drain placement. Moderate conscious sedation. HISTORY: Pericolonic pelvic abscess OPERATORS: Dr. Jas Gerard HAND HYGIENE: Soap and water. [employer]agard. CONSENT: The procedures as well as their risks, benefits, and alternatives were discussed in detail with the patient, and the patient given the opportunity to ask any questions. Written informed consent was then obtained. PROCEDURE DETAILS: Patient was placed on the CT table and limited noncontrast CT was performed of the pelvis to assess the trajectory for the percutaneous drain placement. A dimitrios on the skin was made using the noncontrast CT as a guide. Preprocedural timeout was performed. Versed and fentanyl were given IV by a radiology nurse who is a trained independent observer dedicated to patient monitoring during moderate sedation under my supervision. Local anesthetic with 2% lidocaine was infiltrated into the skin along the planned trajectory. Next, a 5 Spanish Yueh needle/catheter combination was advanced using CT fluoroscopy as a guide to the target pelvic abscess and the needle was removed with the catheter remaining in place. Next, through the 5 Spanish catheter a 035 wire was advanced into the targeted fluid collection. Over the wire 5 Spanish catheter was removed and a 10 Fr locking loop pigtail drain was advanced over the wire in expected distance to the fluid collection based on the CT. The inner stylette and wire were removed. The loop was locked. 30 ml of purulent fluid was aspirated from the fluid collection. The new drain was secured to the skin with sutures and placed to drainage. A sterile dressing was applied. Limited noncontrast CT scan immediately post procedure was performed to assess for any immediate complication. The patient tolerated the procedure well with no immediate complications and was in stable condition at the completion of the procedure. ESTIMATED BLOOD LOSS: 1 mL Procedure Note Jas Gerard MD - 03/28/2025 PROCEDURES: CT guided pelvic abscess drain placement. Moderate conscious sedation. HISTORY: Pericolonic pelvic abscess OPERATORS: Dr. Jas Gerard HAND HYGIENE: Soap and water. [employer]agard. CONSENT: The procedures as well as their risks, benefits, and alternatives were discussed in detail with the patient, and the patient given the opportunity to ask any questions. Written informed consent was then obtained. PROCEDURE DETAILS: Patient was placed on the CT table and limited noncontrast CT was performed of the pelvis to assess the trajectory for the percutaneous drain placement. A dimitrios on the skin was made using the noncontrast CT as a guide. Preprocedural timeout was performed. Versed and fentanyl were given IV by a radiology nurse who is a trained independent observer dedicated to patient monitoring during moderate sedation under my supervision. Local anesthetic with 2% lidocaine was infiltrated into the skin along the planned trajectory. Next, a 5 Spanish Yueh needle/catheter combination was advanced using CT fluoroscopy as a guide to the target pelvic abscess and the needle was removed with the catheter remaining in place. Next, through the 5 Spanish catheter a 035 wire was advanced into the targeted fluid collection. Over the wire 5 Spanish catheter was removed and a 10 Fr locking loop pigtail drain was advanced over the wire in expected distance to the fluid collection based on the CT. The inner stylette and wire were removed. The loop was locked. 30 ml of purulent fluid was aspirated from the fluid collection. The new drain was secured to the skin with sutures and placed to drainage. A sterile dressing was applied. Limited noncontrast CT scan immediately post procedure was performed to assess for any immediate complication. The patient tolerated the procedure well with no immediate complications and was in stable condition at the completion of the procedure. ESTIMATED BLOOD LOSS: 1 mL IMPRESSION: CT-guided pelvic abscess drain placement. I, Dr. Jas Gerard, certify that I was present for the entire procedure. Driss Dahl MD CT ORDERABLES Final Result * (ABNORMAL) ANAEROBIC/AEROBIC CULTURE W GRAM STAIN (03/28/2025 2:03 PM CDT) Pathologist [facility] CULTURE 3 to 4+ or numerous Mixed enteric caitie(A) 03/31/2025 8:25 AM CDT [facility] GRAM STAIN No Polymorphonuclear WBC 03/31/2025 8:25 AM CDT [facility] GRAM STAIN Mixed caitie with no predominate morphology 03/31/2025 8:25 AM CDT [facility] Abscess ENTIRE PELVIS / Unknown Collection / Unknown 03/28/2025 2:03 PM CDT 03/28/2025 2:32 PM CDT Jas Gerard MD MICROBIOLOGY - GENERAL ORDERABLE S Final Result [facility] CLIA # [id number] [address] [place] [address] [place], [place] [id number] * (ABNORMAL) BASIC METABOLIC PANEL (03/28/2025 5:12 AM CDT) SODIUM 141 136 - 145 mmol/L 03/28/2025 6:48 AM CDT [facility] POTASSIUM 3.6 3.5 - 5.1 mmol/L 03/28/2025 6:48 AM T [facility] CHLORIDE 111(H) 98 - 107 mmol/L 03/28/2025 6:48 AM T [facility] CO2 22 22 - 29 mmol/L 03/28/2025 6:48 AM CDT [facility] CALCIUM 9.2 8.8 - 10.2 mg/dL 03/28/2025 6:48 AM T [facility] BUN 7(L) 8 - 23 mg/dL 03/28/2025 6:48 AM T [facility] CREATININE 0.62 0.51 - 0.95 mg/dL 03/28/2025 6:48 AM T [facility] Comment:The GFR result is no t clinically significant on patients <18 or >70 years of age. GLUCOSE 95 74 - 99 mg/dL 03/28/2025 6:48 AM T [facility] GFR >60 mL/min/1.7 3 sq meter 03/28/2025 6:48 AM T [facility] Comment:eGFR calculated with 2020 CKD-EPI equation. Vegetarian diet, extremely high or low muscle mass, and may affect results. Cystatin C with Glomerular Filtration Rate is a suitable alternative for these patients. ANION GAP 8(L) 9 - 20 mmol/L 03/28/2025 6:48 AM T [facility] Blood Venipuncture / Unknown 03/28/2025 5:12 AM CDT 03/28/2025 6:13 AM CDT us Driss Dahl MD CHEMISTRY ORDERABLES Final R esult [facility] CLIA # [id number] [address] [place] [id number] * (ABNORMAL) CBC WITHOUT DIFFERENTIAL (03/28/2025 5:12 AM CDT) WBC 8.4 4.8 - 10.8 K/uL 03/28/2025 6:19 AM CDT [facility] RBC 2.77(L) 4.20 - 5.40 M/uL 03/28/2025 6:19 AM CDT [facility] HEMOGLOBIN 8.4(L) 12.0 - 16.0 g/dL 03/28/2025 6:19 AM CDT [facility] HEMATOCRIT 27.2(L) 36.0 - 46.0 % 03/28/2025 6:19 AM CDT [facility] MCV 98.2 84.0 - 103.0 fL 03/28/2025 6:19 AM CDT [facility] MCH 30.3 27.0 - 34.0 pg 03/28/2025 6:19 AM CDT [facility] MCHC 30.9 30.0 - 35.0 g/dL 03/28/2025 6:19 AM CDT [facility] PLATELETS 385 140 - 440 K/uL 03/28/2025 6:19 AM CDT [facility] MPV 10.7 8.9 - 12.8 fL 03/28/2025 6:19 AM CDT [facility] RDW 14.2 11.0 - 14.5 % 03/28/2025 6:19 AM T [facility] RDW-STDEV 51.3 37.0 - 54.0 fL 03/28/2025 6:19 AM T [facility] Blood Venipuncture / Unknown 03/28/2025 5:12 AM CDT 03/28/2025 6:14 AM CDT us Driss Dahl MD HEMATOLOGY ORDERABLES Final Result [facility] CLIA # [id number] [address] [address] [place] [address] * EKG 12-LEAD (03/28/2025 4:40 AM CDT) 03/28/2025 4:40 AM CDT Narrative INTERFACE SYSTEM - 03/30/2025 6:29 PM CDT [address] [address] Test Date: 2025-03-28 Pat Name: JAVIER ENGLEWOOD Department: 12 Room: [facility] 02 Gender: Female Shank Cutter: [id number] : 1940 Requested By: Order Number: [id number] Reading MD: Sen Tanner Measurements Intervals [place] Rate: 70 P: 67 TN: 154 QRS: -35 QRSD: 90 T: 14 QT: 406 QTc: 438 Interpretive Statements Normal sinus rhythm Left axis deviation Abnormal ECG Electronically Signed On 03-30-2025 18:29:13 CDT by Sen Tanner Procedure Note Sen Tanner MD - 03/30/[address] [address] Test Date: 2025-03-28 Pat Name: [facility] Department: 12 Room: [facility] 02 Gender: Female Shank Cutter: [id number] : 1940 Requested By: Order Number: [id number] Reading MD: Sen Tanner Measurements Intervals [place] Rate: 70 P: 67 TN: 154 QRS: -35 QRSD: 90 T: 14 QT: 406 QTc: 438 Interpretive Statements Normal sinus rhythm Left axis deviation Abnormal ECG Electronically Signed On 03-30-2025 18:29:13 CDT by Sen Tanner us Driss Dahl MD ECG ORDERABLES Final Result INTERFACE SYSTEM Refer to clinic/hospital department * (ABNORMAL) URINE CULTURE (03/28/2025 12:06 AM CDT) CULTURE NAKASEOMYCES GLABRATUS(A) LORA MCG/ML 04/03/2025 3:33 PM CDT [facility] Comment: Sent to the [facility] [place] See separate or scanned report. Urine URINE SPECIMEN OBTAINED BY CLEAN CATCH PROCEDURE / Unknown Collection / Unknown 03/28/2025 12:06 AM CDT 03/28/2025 12:12 AM CDT Narrative [facility] Re-Compose [facility] - 04/03/2025 3:33 PM CDT See scan for results from reference laboratory. Driss Dahl MD MICROBIOLOGY - GENERAL ORDER RAVEN Final Result Performing Organization Address City/[facility]/ZIP Co de Phone Number [facility] CLIA # [id number] [address] [address] [place], [place] [address] * EXTRA TUBE (URINE PRINCE) (03/28/2025 12:06 AM CDT) Urine URINE SPECIMEN OBTAINED BY CLEAN CATCH PROCEDURE / Unknown Collection / Unknown 03/28/2025 12:06 AM CDT 03/28/2025 12:12 AM CDT Driss Dahl MD URINE ORDERABLES Final Resul t Performing Organization Address [facility] Co de Phone Number [facility] CLIA # [id number] [address] [id number] * (ABNORMAL) URINALYSIS WITH REFLEX MICROSCOPIC (03/28/2025 12:06 AM CDT) COLOR UA Yellow Pale to Dark Yellow 03/28/2025 12:27 AM CDT [facility] CLARITY UA Clear Clear 03/28/2025 12:27 AM CDT [facility] SPECIFIC GRAVITY UA 1.025 1.003 - 1.035 03/28/2025 12:27 AM CDT [facility] PH UA 5.5 5.0 - 8.0 03/28/2025 12:27 AM CDT [facility] LEUKOCYTE ESTERASE UA Negative Negative 03/28/2025 12:27 AM T [facility] NITRITE UA Negative Negative 03/28/2025 12:27 AM [facility] PROTEIN UA 1+(A) Negative 03/28/2025 12:27 AM T [facility] GLUCOSE UA Negative Negative 03/28/2025 12:27 AM [facility] KETONES UA Trace(A) Negative 03/28/2025 12:27 AM [facility] UROBILINOGEN UA 0.2 <2.0 mg/dL 12:27 AM T [facility] BILIRUBIN UA Negative Negative 03/28/2025 12:27 AM [facility] BLOOD UA 2+(A) Negative 03/28/2025 12:27 AM [facility] WBC UA 0-2 0 - 2 /hpf 03/28/2025 12:27 AM [facility] RBC UA 51-100(A) 0 - 2 /hpf 03/28/2025 12:27 AM [facility] BACTERIA UA 3+(A) Negative /hpf 03/28/2025 12:27 AM [facility] EPITHELIAL CELLS, URINE 0-5 0 - 5 /hpf 03/28/2025 12:27 AM [facility] HYALINE CAST 11-25(A) None Seen, 0-2 /lpf 03/28/2025 12:27 AM [facility] YEAST, BUDDING Present(A) Absent 03/28/2025 12:27 AM [facility] Urine URINE SPECIMEN OBTAINED BY CLEAN CATCH PROCEDURE / Unknown Collection / Unknown 03/28/2025 12:06 AM CDT 03/28/2025 12:12 AM [facility] us Driss Dahl MD URINE ORDERABLES Final Resul t [facility] CLIA # [id number] [facility] [address] [place] [address] * (ABNORMAL) FERRITIN (03/27/2025 8:24 PM CDT) FERRITIN 541.8(H) 13.0 - 150.0 ng/mL 03/28/2025 12:40 AM CDT [facility] Blood Venipuncture / Unknown 03/27/2025 8:24 PM CDT 03/27/2025 8:44 PM CDT Driss Dahl MD CHEMISTRY ORDERABLES Final R esult [facility] CLIA # [id number] [address] [place] [id number] * (ABNORMAL) IRON, TIBC, AND PERCENT SATURATION (03/27/2025 8:24 PM CDT) [facility] IRON 42 37 - 145 ug/dL 03/28/2025 12:42 AM CDT [facility] TIBC 144(L) 250 - 450 ug/dL 03/28/2025 12:42 AM CDT [facility] IRON % SATURATION 29 15 - 60 % 03/28/2025 12:42 AM CDT [facility] Blood Venipuncture / Unknown 03/27/2025 8:24 PM CDT 03/27/2025 8:44 PM CDT us Driss Dahl MD CHEMISTRY ORDERABLES Final R esult [facility] CLIA # [id number] [address] [place] [address] * (ABNORMAL) COMPREHENSIVE METABOLIC PANEL (03/27/2025 8:24 PM CDT) SODIUM 140 136 - 145 mmol/L 03/27/2025 9:16 PM [facility] POTASSIUM 3.9 3.5 - 5.1 mmol/L 03/27/2025 9:16 PM [facility] CHLORIDE 109(H) 98 - 107 mmol/L 03/27/2025 9:16 PM [facility] CO2 22 22 - 29 mmol/L 03/27/2025 9:16 PM [facility] CALCIUM 9.5 8.8 - 10.2 mg/dL 03/27/2025 9:16 PM [facility] BUN 8 8 - 23 mg/dL 03/27/2025 9:16 PM [facility] CREATININE 0.70 0.51 - 0.95 mg/dL 03/27/2025 9:16 PM [facility] Comment:The GFR result is no t clinically significant on patients <18 or >70 years of age. GLUCOSE 147(H) 74 - 99 mg/dL 03/27/2025 9:16 PM [facility] TOTAL PROTEIN 5.5(L) 6.4 - 8.3 g/dL 03/27/2025 9:16 PM [facility] ALBUMIN 3.2(L) 3.5 - 5.2 g/dL 03/27/2025 9:16 PM [facility] BILIRUBIN TOTAL 0.5 0.0 - 1.0 mg/dL 03/27/2025 9:16 PM [facility] ALKALINE PHOSPHATASE 118(H) 35 - 104 U/L 03/27/2025 9:16 PM [facility] AST 14 10 - 35 U/L 03/27/2025 9:16 PM [facility] ALT 25 <=35 U/L 03/27/2025 9:16 PM [facility] GFR >60 mL/min/1.7 3 sq meter 03/27/2025 9:16 PM [facility] Comment:eGFR calculated with 2020 CKD-EPI equation. Vegetarian diet, extremely high or low muscle mass, and may affect results. Cystatin C with Glomerular Filtration Rate is a suitable alternative for these patients. ANION GAP 9 9 - 20 mmol/L 03/27/2025 9:16 PM CDT [facility] Blood Venipuncture / Unknown 03/27/2025 8:24 PM CDT 03/27/2025 8:44 PM CDT Driss Dahl MD CHEMISTRY ORDERABLES Final R esult Performing Organization Address [facility] Co de Phone Number [facility] CLIA # [id number] [address] * PROTIME-INR (03/27/2025 8:24 PM CDT) PROTIME 14.7 12.7 - 14.9 Seconds 03/27/2025 8:51 PM CDT [facility] Re-Compose [facility] INR 1.1 0.8 - 1.2 03/27/2025 8:51 PM CDT [facility] Blood Venipuncture / Unknown 03/27/2025 8:24 PM CDT 03/27/2025 8:39 PM CDT Narrative [facility] - 03/27/2025 8:51 PM CDT Expected Values for INR: DVT/PE Goal INR 2.5; range 2.0 - 3.0 Valve Replacement Tissue Goal INR 2.5; range 2.0 - 3.0 Valve Replacement Mechanical Goal INR 3.0; range 2.5 - 3.5 POST-AZ Goal INR 2.5; range 2.0 - 3.0 or Goal INR 3.0; range 2.5 - 3.5 Atrial Fibrillation Goal INR 2.5; range 2.0 - 3.0 Ischemic Stroke Goal INR 2.5; range 2.0 - 3.0 Driss Dahl MD HEMATOLOGY ORDERABLES Final Result Performing Organization Address [facility]/ZIP Co de Phone Number [facility] Re-Compose [facility] CLIA # [id number] [address] [place] [address] [place] [address] * (ABNORMAL) CBC WITH DIFFERENTIAL (03/27/2025 8:24 PM CDT) [facility] WBC 7.3 4.8 - 10.8 K/uL 03/27/2025 8:48 PM CDT [facility] RBC 2.79(L) 4.20 - 5.40 M/uL 03/27/2025 8:48 PM CDT [facility] HEMOGLOBIN 8.5(L) 12.0 - 16.0 g/dL 03/27/2025 8:48 PM CDT [facility] HEMATOCRIT 27.6(L) 36.0 - 46.0 % 03/27/2025 8:48 PM CDT [facility] MCV 98.9 84.0 - 103.0 fL 03/27/2025 8:48 PM CDT [facility] MCH 30.5 27.0 - 34.0 pg 03/27/2025 8:48 PM CDT [facility] MCHC 30.8 30.0 - 35.0 g/dL 03/27/2025 8:48 PM CDT [facility] PLATELETS 373 140 - 440 K/uL 03/27/2025 8:48 PM CDT [facility] MPV 10.4 8.9 - 12.8 fL 03/27/2025 8:48 PM CDT [facility] RDW 14.3 11.0 - 14.5 % 03/27/2025 8:48 PM CDT [facility] RDW-STDEV 51.8 37.0 - 54.0 fL 03/27/2025 8:48 PM CDT [facility] NEUTROPHILS 90(H) 42 - 75 % 03/27/2025 8:48 PM CDT [facility] LYMPHOCYTES 9(L) 24 - 44 % 03/27/2025 8:48 PM CDT [facility] MONOCYTES 1(L) 2 - 10 % 03/27/2025 8:48 PM CDT [facility] EOSINOPHILS 0 0 - 7 % 03/27/2025 8:48 PM CDT [facility] BASOPHILS 0 0 - 1 % 03/27/2025 8:48 PM CDT [facility] IMMATURE GRANULOCYTES 1 0 - 2 % 03/27/2025 8:48 PM CDT [facility] NEUTROPHIL ABSOLUTE 6.49 2.00 - 8.00 K/uL 03/27/2025 8:48 PM CDT [facility] LYMPHOCYTE ABSOLUTE 0.63(L) 1.20 - 4.00 K/uL 03/27/2025 8:48 PM CDT [facility] MONOCYTE ABSOLUTE 0.07(L) 0.10 - 0.60 K/uL 03/27/2025 8:48 PM CDT [facility] EOSINOPHIL ABSOLUTE 0.00 0.00 - 0.70 K/uL 03/27/2025 8:48 PM CDT [facility] BASOPHILS ABSOLUTE 0.01 0.00 - 0.20 K/uL 03/27/2025 8:48 PM CDT [facility] IMMATURE GRANULOCYTES ABSOLUTE 0.05 0.00 - 0.10 K/uL 03/27/2025 8:48 PM CDT [facility] SMEAR REVIEWED: NA - Not Applicable 03/27/2025 8:48 PM CDT [facility] Blood Venipuncture / Unknown 03/27/2025 8:24 PM CDT 03/27/2025 8:40 PM CDT us Driss Dahl MD HEMATOLOGY ORDERABLES Final Result [facility] CLIA # [id number] [address] [place] [address] [place] [address] * TYPE AND SCREEN (03/27/2025 8:21 PM CDT) ABO GROUP B 03/27/2025 9:56 PM CDT [facility] RH (D) TYPE Positive 03/27/2025 9:56 PM CDT [facility] ANTIBODY SCREEN Negative 03/27/2025 9:56 PM CDT [facility] Blood Venipuncture / Unknown 03/27/2025 8:21 PM CDT 03/27/2025 8:39 PM CDT Driss Dahl MD BLOOD BANK ORDERABLES Edited Result - Final [facility] CLIA#[id number] [facility] [place] [address], * XR CHEST PA OR AP 1 VW (03/27/2025 7:37 PM CDT) Anatomical Region Laterality Modality Chest Computed Radiogr aphy 03/27/2025 7:37 PM CDT Impressions 03/27/2025 7:51 PM CDT Impression: No evidence of infiltrates. Narrative 03/27/2025 7:51 PM CDT Exam: XR CHEST PA OR AP 1 VW Date/Time of Exam: 03/27/2025 7:37 PM Reason For Exam: CHF Diagnosis: See Reason for Exam The heart size is normal. The lungs are clear. No pneumothorax is seen. Procedure Note Aneesh Ramirez MD - 03/27/2025 Exam: XR CHEST PA OR AP 1 VW Date/Time of Exam: 03/27/2025 7:37 PM Reason For Exam: CHF Diagnosis: See Reason for Exam The heart size is normal. The lungs are clear. No pneumothorax is seen. Impression: No evidence of infiltrates. us Driss Dahl MD DIAGNOSTIC IMAGING ORDERABLE S Final Result documented in this encounter Visit Diagnoses Diagnosis Sigmoid diverticulitis- Primary Diverticulitis of colon (without mention of hemorrhage) Laboratory test Laboratory examination, unspecified Sigmoid diverticulitis Diverticulitis of colon (without mention of hemorrhage) Abscess of sigmoid colon due to diverticulitis Lumbosacral spondylosis without myelopathy Indwelling Rollins catheter present Pressure injury of sacral region, stage 1 Osteoarthritis of multiple joints Osteoarthrosis involving, or with mention of more than one site, but not specified as generalized, multiple sites Gastroesophageal reflux disease without esophagitis Esophageal reflux Anemia Anemia, unspecified Protein-calorie malnutrition, moderate Malnutrition of moderate degree documented in this encounter Administered Medications Inactive Administered Medications - up to 3 most recent administrations Medication Order MAR Action Action Date Dose Rate Site acetaminophen (TYLENOL) tablet 650 mg 650 mg, Oral, EVERY 6 HOURS PRN, Starting on Sun03/27/25 at 1914, Until Sun03/29/25 at 1328, Other (See Comment), See admin instructions, Routine Given 03/29/2025 6:12 AM CDT 650 mg Given 03/28/2025 9:53 AM CDT 650 mg Given 03/27/2025 8:35 PM CDT 650 mg amoxicillin-clavulanate (AUGMENTIN) 875-125 mg per tablet 1 Tablet 1 Tablet, Oral, EVERY 12 HOURS (BlD), 20 doses, First dose on Sun03/31/25 at 1115, Last dose on Sun04/09/25 at 2100, Routine, Antibiotic Indication: Intra-abdominal infection / Fecal Contamination Given 04/02/2025 8:39 PM CDT 1 Tablet Given 04/02/2025 8:32 AM CDT 1 Tablet Given 04/01/2025 9:29 PM CDT 1 Tablet balsam violetta-castor oiL (VENELEX) topical ointment Topical, DAILY, First dose on Sun03/30/25 at 1315, Until Discontinued, Routine Given 04/02/2025 8:32 AM CDT Foot, Left Given 04/01/2025 12:03 PM CDT F oot, Left Given 03/31/2025 12:22 PM CDT F oot, Left cefTRIAXone (ROCEPHIN) 2,000 mg in sodium chloride 0.9% 50 mL IVPB (MBP) 2,000 mg, IV, EVERY 24 HOURS (DAILY), First dose on Sun03/27/25 at 2015, Until Discontinued, Routine, Antibiotic Indication: Intra-abdominal infection / Fecal Contamination New Bag 03/30/2025 10:14 PM CDT 2,000 mg 118 mL/hr New Bag 03/29/2025 9:35 PM CDT 2,000 mg 118 mL/hr New Bag 03/28/2025 8:33 PM CDT 2,000 mg 118 mL/hr dextrose 5 % in water 250 mL flush bag 25 mL 25 mL, IV, SEE ADMIN INSTRUCTIONS, Starting on Sun03/27/25 at 1914, Until Sun04/03/25 at 0408, Routine dextrose 5% - sodium chloride 0.45% infusion IV, at 30 mL/hr, INTRA-PROCEDURE ONCE, 1 dose, Starting on 03/28/25 at 1224, Until 03/28/25 at 1410, Routine, IntraProcedure (IR) New Bag 03/28/2025 1:30 PM CDT 30 mL/hr fentaNYL PF (SUBLIMAZE) 50 mcg/mL injection 50 mcg 50 mcg, IV, INTRA-PROCEDURE ONCE, 1 dose, Starting on 03/28/25 at 1413, Until 03/28/25 at 1330, Routine Given 03/28/2025 1:30 PM CDT 50 mcg heparin injection 5,000 Units 5,000 Units, subCUT, EVERY 8 HOURS, First dose on 03/28/25 at 0500, Until Discontinued, Routine Given 04/02/2025 8:39 PM CDT 5,000 Units Abdominal Tissue Given 04/02/2025 12:30 PM CDT 5,000 Units Abdomen, Left Lower Quadrant Given 04/01/2025 9:29 PM CDT 5,000 Units A bdominal Tissue HYDROcodone-acetaminophen (NORCO) 5-325 mg per tablet 1 Tablet 1 Tablet, Oral, EVERY 6 HOURS PRN, Starting on 03/28/25 at 1052, Until Sun03/29/25 at 1328, Pain (See admin instructions), Routine Given 03/29/2025 11:42 AM CDT 1 Tablet Given 03/29/2025 3:20 AM CDT 1 Tablet Given 03/28/2025 8:29 PM CDT 1 Tablet HYDROcodone-acetaminophen (NORCO) 5-325 mg per tablet 2 Tablet 2 Tablet, Oral, EVERY 4 HOURS PRN, Starting on Sun03/29/25 at 1327, Until Sun04/03/25 at 0408, Pain (See admin instructions), Routine Given 04/02/2025 8:39 PM CDT 2 Tablets Given 04/02/2025 8:40 AM CDT 2 Tablets Given 04/01/2025 9:29 PM CDT 2 Tablets lidocaine PF 1% (XYLOCAINE MPF) injection 15 mL 15 mL (150 mg), Infiltration, ONE TIME ONLY, 1 dose, On 03/28/25 at 1230, Routine, IntraProcedure (IR) Admin by Another Clinician (Comment) 03/28/2025 1:42 PM CDT 15 mL metroNIDAZOLE (FLAGYL) tablet 500 mg 500 mg, Oral, EVERY 8 HOURS, First dose on Sun03/27/25 at 2100, Until Discontinued, Routine, Antibiotic Indication: Intra-abdominal infection / Fecal Contamination Given 03/31/2025 4:26 AM CDT 500 mg Given 03/30/2025 10:13 PM CDT 500 mg Given 03/30/2025 12:36 PM CDT 500 mg midazolam (PF) (VERSED) injection 1 mg 1 mg, IV, INTRA-PROCEDURE ONCE, 1 dose, Starting on 03/28/25 at 1413, Until 03/28/25 at 1330, Routine Given 03/28/2025 1:30 PM CDT 1 mg naloxone (NARCAN) 0.4 mg/mL injection 0.1 mg 0.1 mg, IV, SEE ADMIN INSTRUCTIONS, Starting on Sun03/27/25 at 1915, Until Sun04/03/25 at 0408, Routine ondansetron (ZOFRAN) 4 mg/2 mL injection 4 mg 4 mg, IV, EVERY 6 HOURS PRN, Starting on Sun03/27/25 at 1915, Until Sun04/03/25 at 0408, Nausea/Emesis, Routine oxyCODONE (ROXICODONE) tablet 5 mg 5 mg, Oral, ONE TIME ONLY, 1 dose, On 03/28/25 at 0045, Routine Given 03/28/2025 12:53 AM CDT 5 mg pantoprazole (PROTONIX) tablet 20 mg 20 mg, Oral, DAILY, First dose on 03/28/25 at 0900, Until Discontinued, Routine, Previous Med: pantoprazole (PROTONIX) 20 mg Tablet, Delayed Release (E.C.) - Orig Sig - Take 20 mg by mouth daily. , Indication: Gastroesophageal reflux disease (GERD) Given 04/02/2025 8:32 AM CDT 20 mg Given 04/01/2025 12:03 PM CDT 20 mg Given 03/31/2025 9:24 AM CDT 20 mg potassium CHLORIDE (KLOR-CON) SR tablet 40 mEq 40 mEq, Oral, ONE TIME ONLY, 1 dose, On Sun03/29/25 at 0745, Routine Given 03/29/2025 9:45 AM CDT 40 mEq predniSONE (DELTASONE) tablet 20 mg 20 mg, Oral, DAILY WITH BREAKFAST, First dose (after last modification) on Sun03/31/25 at 0800, Until Discontinued, Routine, Previous Med: predniSONE (DELTASONE) 10 mg tablet - Orig Sig - Take 2.5 Tablets by mouth daily with breakfast. Given 04/02/2025 8:31 AM CDT 20 mg Given 04/01/2025 12:02 PM CDT 20 mg Given 03/31/2025 9:24 AM CDT 20 mg predniSONE (DELTASONE) tablet 25 mg 25 mg, Oral, DAILY WITH BREAKFAST, First dose on Sun03/28/25 at 0800, Until Discontinued, Routine, Previous Med: predniSONE (DELTASONE) 10 mg tablet - Orig Sig - Take 2.5 Tablets by mouth daily with breakfast. Given 03/30/2025 8:42 AM CDT 25 mg Given 03/29/2025 9:40 AM CDT 25 mg Given 03/28/2025 9:54 AM CDT 25 mg saccharomyces boulardii (FLORASTOR) capsule 250 mg 250 mg, Oral, TWO TIMES DAILY, First dose on Sun03/27/25 at 2100, Until Discontinued, Routine Given 04/02/2025 8:39 PM CDT 250 mg Given 04/02/2025 8:31 AM CDT 250 mg Given 04/01/2025 9:29 PM CDT 250 mg sodium chloride 0.9 % flush bag 25 mL 25 mL, IV, SEE ADMIN INSTRUCTIONS, Starting on Sun03/27/25 at 1914, Until Sun04/03/25 at 0408, Routine sodium chloride flush injection 10 mL 10 mL, IV, EVERY 12 HOURS (BlD), First dose on Sun03/27/25 at 2100, Until Discontinued, Routine Given 04/02/2025 8:39 PM CDT 10 mL Given 04/02/2025 8:38 AM CDT 10 mL Given 04/01/2025 9:32 PM CDT 10 mL sodium chloride flush injection 10 mL 10 mL, IV, SEE ADMIN INSTRUCTIONS, Starting on Sun03/27/25 at 1914, Until Sun04/03/25 at 0408, Routine zinc OXIDE-cod liver oil (DESITIN) 40 % topical paste Topical, TWO TIMES DAILY, First dose on 03/28/25 at 1245, Until Discontinued, Routine Given 04/02/2025 8:39 PM CDT Coccyx Given 04/02/2025 8:32 AM CDT Bi lateral buttocks Given 04/01/2025 9:32 PM CDT Co ccyx documented in this encounter Active and Recently Administered Medications Times are shown in CDT. Scheduled Medication Order 04/01/2025 04/02/2025 04/03/2025 amoxicillin-clavulanate (AUGMENTIN) 875-125 mg per tablet 1 Tablet 1 Tablet, Oral, EVERY 12 HOURS (BlD), 20 doses, First dose on Sun03/31/25 at 1115, Last dose on Sun04/09/25 at 2100, Routine, Antibiotic Indication: Intra-abdominal infection / Fecal Contamination 1203 (Given - Provider: Thelma Son RN)2128 (Given - Provider: Eli Curtis RN) 0832 (Given - Provider: Thelma Son RN)2038 (Given - Provider: Eli Curtis, SHARON) balsam violetta-castor oiL (VENELEX) topical ointment Topical, DAILY, First dose on 03/30/25 at 1315, Until Discontinued, Routine 1203 (Given - Provider: Thelma Son RN - Comment: neena heels ) 0832 (Given - Provider: Thelma Son RN) clopidogreL (PLAVIX) tablet 75 mg 75 mg, Oral, DAILY, First dose on Sun03/28/25 at 0900, Until Discontinued, Routine, Previous Med: clopidogreL (PLAVIX) 75 mg Tablet - Orig Sig - Take 75 mg by mouth. , On hold since Sun03/27/2025 at 2017 until manually unheld 0900 (Automatically Held) 0900 (Automatically Held) 0408 (Order Unhold - Provider: PROVIDER, DISCHARGE PATIENT) dextrose 5 % in water 250 mL flush bag 25 mL 25 mL, IV, SEE ADMIN INSTRUCTIONS, Starting on Sun03/27/25 at 1914, Until Sun04/03/25 at 0408, Routine heparin injection 5,000 Units 5,000 Units, subCUT, EVERY 8 HOURS, First dose on Sun03/28/25 at 0500, Until Discontinued, Routine 0451 (Given - Provider: Eli Curtis RN)1417 (Given - Provider: Thelma Son RN)2128 (Given - Provider: Eli Curtis, RN) 0500 (Not Given - Provider: Eli Curtis RN - Reason: Other - See Comment)123 (Given - Provider: Thelma Son RN)2038 (Given - Provider: Eli Curtis RN) naloxone (NARCAN) 0.4 mg/mL injection 0.1 mg 0.1 mg, IV, SEE ADMIN INSTRUCTIONS, Starting on Sun03/27/25 at 1915, Until Sun04/03/25 at 0408, Routine pantoprazole (PROTONIX) tablet 20 mg 20 mg, Oral, DAILY, First dose on Sun03/28/25 at 0900, Until Discontinued, Routine, Previous Med: pantoprazole (PROTONIX) 20 mg Tablet, Delayed Release (E.C.) - Orig Sig - Take 20 mg by mouth daily. , Indication: Gastroesophageal reflux disease (GERD) 1203 (Given - Provider: Thelma Son RN) 0832 (Given - Provider: Thelma Son RN) predniSONE (DELTASONE) tablet 20 mg 20 mg, Oral, DAILY WITH BREAKFAST, First dose (after last modification) on Sun03/31/25 at 0800, Until Discontinued, Routine, Previous Med: predniSONE (DELTASONE) 10 mg tablet - Orig Sig - Take 2.5 Tablets by mouth daily with breakfast. 1202 (Given - Provider: Thelma Son RN) 0831 (Given - Provider: Thelma Son RN) saccharomyces boulardii (FLORASTOR) capsule 250 mg 250 mg, Oral, TWO TIMES DAILY, First dose on Sun03/27/25 at 2100, Until Discontinued, Routine 1202 (Given - Provider: Thelma Son RN)2128 (Given - Provider: Eli Curtis RN) 0831 (Given - Provider: Thelma Son RN)2038 (Given - Provider: Eli Curtis RN) sodium chloride 0.9 % flush bag 25 mL 25 mL, IV, SEE ADMIN INSTRUCTIONS, Starting on Sun03/27/25 at 1914, Until Sun04/03/25 at 0408, Routine sodium chloride flush injection 10 mL 10 mL, IV, EVERY 12 HOURS (BlD), First dose on Sun03/27/25 at 2100, Until Discontinued, Routine 1203 (Given - Provider: Thelma Son RN)213 (Given - Provider: Eli Curtis RN) 0838 (Given - Provider: Thelma Son RN)2038 (Given - Provider: Eli Curtis RN) sodium chloride flush injection 10 mL 10 mL, IV, SEE ADMIN INSTRUCTIONS, Starting on Sun03/27/25 at 1914, Until Sun04/03/25 at 0408, Routine zinc OXIDE-cod liver oil (DESITIN) 40 % topical paste Topical, TWO TIMES DAILY, First dose on Sun03/28/25 at 1245, Until Discontinued, Routine 1204 (Given - Provider: Thelma Son RN)2131 (Given - Provider: Eli Curtis RN) 0832 (Given - Provider: Thelma Son RN)2038 (Given - Provider: Eli Curtis RN) PRN Medication Order 04/01/2025 04/02/2025 04/03/2025 HYDROcodone-acetaminophen (NORCO) 5-325 mg per tablet 2 Tablet 2 Tablet, Oral, EVERY 4 HOURS PRN, Starting on Sun03/29/25 at 1327, Until Sun04/03/25 at 0408, Pain (See admin instructions), Routine 1556 (Given - Provider: Thelma Son RN)212 (Given - Provider: Eli Curtis RN) 0840 (Given - Provider: Thelma Son RN)2038 (Given - Provider: Eli Curtis RN) ondansetron (ZOFRAN) 4 mg/2 mL injection 4 mg 4 mg, IV, EVERY 6 HOURS PRN, Starting on Sun03/27/25 at 1915, Until Sun04/03/25 at 0408, Nausea/Emesis, Routine documented in this encounter
--- OUTSIDE RECORDS SUMMARY | 2025-04-04 21:45 | XMS_ITS | Encounter Summary ---
Author Organization [facility] Address [address] [place] [address] Care Team Providers Care Automation Technician Name Role Phone Unavailable Primary Care Provider Unavailabl e Encounter Details Date Type Department Care Team (Late st Contact Info) Description 04/03/2025 Orders Only [facility] [address] [place] [address] Provider, Abstract NO ADDRESS ON [...] Description 04/22/2025 9:45 AM CDT Office Visit [facility] Gen Spec Surg [place] [address] [place] [phone] Tucker Marroquin MD [facility] [address] [phone] documented as of this encounter Procedures Procedure [...]
--- OUTSIDE RECORDS SUMMARY | 2025-04-04 21:45 | XMS_ITS | Clinical Summary ---
Author Organization [facility] Address [address] [place] [address] Care Team Providers Care Borematic Machine Operator Name Role Phone Unavailable Primary [...] daily. 5 Active naloxone (NARCAN) 4 mg/spray [place], Non-Aerosol EMERGENCY USE ONLY: Administer 1 spray [...] Department Care Team Description 04/03/2025 Orders Only [facility] HIM [address] [place] [phone] Provider, Abstract 03/31/2025 External Device Data ST[place] ABSTRACTION Provider, Abstract 03/31/2025 External Device Data [place] ABSTRACTION Provider, Abstract 03/31/2025 External Device Data [place] ABSTRACTION Provider, Abstract 03/27/2025 6:59 PM CDT - 04/03/2025 12:02 AM CDT Hospital Encounter [facility] 3D Medical Telemetry [address] [place] [phone] Garth Azar MD Sundaram, MD Cole Naqvi Jagdeep S, MD Sigmoid diverticulitis Discharge Disposition: Jail Fac(SNF) with [...] Description 04/22/2025 9:45 AM CDT Office Visit [facility] Gen Spec Surg [address] [place] [phone] Tucker Marroquin MD [address] [place] [address] [address] [place] [phone] Health Maintenance Due Date Last Done Comments [...] - 10.8 K/uL 04/02/2025 6:23 AM CDT [facility] RBC 2.95(L) 4.20 - 5.40 M/uL 04/02/2025 6:23 AM CDT [facility] HEMOGLOBIN 9.1(L) 12.0 - 16.0 g/dL 04/02/2025 6:23 AM [facility] HEMATOCRIT 28.8(L) 36.0 - 46.0 % 04/02/2025 6:23 AM [facility] MCV 97.6 84.0 - 103.0 fL 04/02/2025 6:23 AM [facility] MCH 30.8 27.0 - 34.0 pg 04/02/2025 6:23 AM [facility] MCHC 31.6 30.0 - 35.0 g/dL 04/02/2025 6:23 AM [facility] PLATELETS 548(H) 140 - 440 K/uL 04/02/2025 6:23 AM [facility] MPV 10.0 8.9 - 12.8 fL 04/02/2025 6:23 AM [facility] RDW 15.2(H) 11.0 - 14.5 % 04/02/2025 6:23 AM [facility] RDW-STDEV 54.4(H) 37.0 - 54.0 fL 04/02/2025 6:23 AM [facility] NEUTROPHILS 83(H) 42 - 75 % 04/02/2025 6:23 AM [facility] LYMPHOCYTES 11(L) 24 - 44 % 04/02/2025 6:23 AM [facility] MONOCYTES 5 2 - 10 % 04/02/2025 6:23 AM [facility] EOSINOPHILS 0 0 - 7 % 04/02/2025 6:23 AM [facility] BASOPHILS 0 0 - 1 % 04/02/2025 6:23 AM [facility] IMMATURE GRANULOCYTES 1 0 - 2 % 04/02/2025 6:23 AM [facility] NEUTROPHIL ABSOLUTE 11.06(H) 2.00 - 8.00 K/uL 04/02/2025 6:23 AM [facility] LYMPHOCYTE ABSOLUTE 1.43 1.20 - 4.00 K/uL 04/02/2025 6:23 AM [facility] MONOCYTE ABSOLUTE 0.72(H) 0.10 - 0.60 K/uL 04/02/2025 6:23 AM CDT [facility] EOSINOPHIL ABSOLUTE 0.01 0.00 - 0.70 K/uL 04/02/2025 6:23 AM CDT [facility] BASOPHILS ABSOLUTE 0.01 0.00 - 0.20 K/uL 04/02/2025 6:23 AM T [facility] IMMATURE GRANULOCYTES ABSOLUTE 0.07 0.00 - 0.10 K/uL 04/02/2025 6:23 AM [facility] SMEAR REVIEWED: NA - Not Applicable 04/02/2025 6:23 AM [facility] Blood Venipuncture / Unknown 04/02/2025 6:08 AM CDT 04/02/2025 6:16 AM CDT Rico Galvan MD HEMATOLOGY ORDERABLES Final Result [facility] CLIA # [id number] [address] [place] [address] * (ABNORMAL) COMPREHENSIVE METABOLIC PANEL (04/02/2025 6:08 AM CDT) Only the most recent of9 resultswithin the time period is included. SODIUM 140 136 - 145 mmol/L 04/02/2025 6:54 AM [facility] POTASSIUM 4.0 3.5 - 5.1 mmol/L 04/02/2025 6:54 AM [facility] CHLORIDE 109(H) 98 - 107 mmol/L 04/02/2025 6:54 AM [facility] CO2 23 22 - 29 mmol/L 04/02/2025 6:54 AM [facility] CALCIUM 10.0 8.8 - 10.2 mg/dL 04/02/2025 6:54 AM T [facility] BUN 9 8 - 23 mg/dL 04/02/2025 6:54 AM [facility] CREATININE 0.65 0.51 - 0.95 mg/dL 04/02/2025 6:54 AM [facility] Comment:The GFR result is no t clinically significant on patients <18 or >70 years of age. GLUCOSE 82 74 - 99 mg/dL 04/02/2025 6:54 AM [facility] TOTAL PROTEIN 5.2(L) 6.4 - 8.3 g/dL 04/02/2025 6:54 AM [facility] ALBUMIN 2.7(L) 3.5 - 5.2 g/dL 04/02/2025 6:54 AM [facility] BILIRUBIN TOTAL 0.5 0.0 - 1.0 mg/dL 04/02/2025 6:54 AM [facility] ALKALINE PHOSPHATASE 160(H) 35 - 104 U/L 04/02/2025 6:54 AM [facility] AST 14 10 - 35 U/L 04/02/2025 6:54 AM [facility] ALT 19 <=35 U/L 04/02/2025 6:54 AM [facility] GFR >60 mL/min/1.7 3 sq meter 04/02/2025 6:54 AM [facility] Comment:eGFR calculated with 2020 CKD-EPI equation. Vegetarian diet, extremely high or low muscle mass, and may affect results. Cystatin C with Glomerular Filtration Rate is a suitable alternative for these patients. ANION GAP 8(L) 9 - 20 mmol/L 04/02/2025 6:54 AM [facility] Blood Venipuncture / Unknown 04/02/2025 6:08 AM CDT 04/02/2025 6:17 AM [facility] us Rico Galvan MD CHEMISTRY ORDERABLES Final R esult [facility] CLIA # [id number] [address] [address] [place] [address] * XR PELVIS 1 OR 2 VW [...] - 2.4 mg/dL 03/29/2025 4:47 AM CDT [facility] [email or web address] [facility] Blood Venipuncture / Unknown 03/29/2025 3:36 AM CDT 03/29/2025 4:10 AM CDT us Rico Galvan MD CHEMISTRY ORDERABLES Final R esult [facility] # [id number] [address] [facility] [place] [address] * CT GUIDE PERCUT DRAIN W CATH [...] along the planned trajectory. Next, a 5 Marshallese Yueh needle/catheter combination was advanced using CT fluoroscopy as a guide to the target pelvic abscess and the needle was removed with the catheter remaining in place. Next, through the 5 Marshallese catheter a 035 wire was advanced into the targeted fluid collection. Over the wire 5 Marshallese catheter was removed and a 10 Fr [...] along the planned trajectory. Next, a 5 Marshallese Yueh needle/catheter combination was advanced using CT fluoroscopy as a guide to the target pelvic abscess and the needle was removed with the catheter remaining in place. Next, through the 5 Marshallese catheter a 035 wire was advanced into the targeted fluid collection. Over the wire 5 Marshallese catheter was removed and a 10 Fr [...] Mixed enteric caitie(A) 03/31/2025 8:25 AM CDT [facility] GRAM STAIN No Polymorphonuclear WBC 03/31/2025 8:25 AM CDT [facility] GRAM STAIN Mixed caitie with no predominate morphology 03/31/2025 8:25 AM CDT [facility] Abscess ENTIRE PELVIS / Unknown Collection / Unknown 03/28/2025 2:03 PM CDT 03/28/2025 2:32 PM CDT Jas Gerard MD MICROBIOLOGY - GENERAL ORDERABLE S Final Result [facility] CLIA # [id number] [address] [place] [address] * (ABNORMAL) CBC WITHOUT DIFFERENTIAL (03/28/2025 5:12 AM CDT) [facility] WBC 8.4 4.8 - 10.8 K/uL 03/28/2025 6:19 AM CDT [facility] RBC 2.77(L) 4.20 - 5.40 M/uL 03/28/2025 6:19 AM CDT [facility] HEMOGLOBIN 8.4(L) 12.0 - 16.0 g/dL 03/28/2025 6:19 AM CDT [facility] HEMATOCRIT 27.2(L) 36.0 - 46.0 % 03/28/2025 6:19 AM CDT [facility] MCV 98.2 84.0 - 103.0 fL 03/28/2025 6:19 AM CDT [facility] MCH 30.3 27.0 - 34.0 pg 03/28/2025 6:19 AM CDT [facility] MCHC 30.9 30.0 - 35.0 g/dL 03/28/2025 6:19 AM CDT [facility] PLATELETS 385 140 - 440 K/uL 03/28/2025 6:19 AM CDT [facility] MPV 10.7 8.9 - 12.8 fL 03/28/2025 6:19 AM CDT [facility] RDW 14.2 11.0 - 14.5 % 03/28/2025 6:19 AM CDT [facility] RDW-STDEV 51.3 37.0 - 54.0 fL 03/28/2025 6:19 AM T [facility] Blood Venipuncture / Unknown 03/28/2025 5:12 AM CDT 03/28/2025 6:14 AM CDT Driss Dahl MD HEMATOLOGY ORDERABLES Final Result [facility] CLIA # [id number] [address] [place] [address] * (ABNORMAL) BASIC METABOLIC PANEL (03/28/2025 5:12 AM CDT) SODIUM 141 136 - 145 mmol/L 03/28/2025 6:48 AM [facility] POTASSIUM 3.6 3.5 - 5.1 mmol/L 03/28/2025 6:48 AM [facility] CHLORIDE 111(H) 98 - 107 mmol/L 03/28/2025 6:48 AM T [facility] CO2 22 22 - 29 mmol/L 03/28/2025 6:48 AM T [facility] CALCIUM 9.2 8.8 - 10.2 mg/dL 03/28/2025 6:48 AM T [facility] BUN 7(L) 8 - 23 mg/dL 03/28/2025 6:48 AM T [facility] CREATININE 0.62 0.51 - 0.95 mg/dL 03/28/2025 6:48 AM T [facility] Comment:The GFR result is no t clinically significant on patients <18 or >70 years of age. GLUCOSE 95 74 - 99 mg/dL 03/28/2025 6:48 AM CDT [facility] GFR >60 mL/min/1.7 3 sq meter 03/28/2025 6:48 AM CDT [facility] Comment:eGFR calculated with 2020 CKD-EPI equation. Vegetarian diet, extremely high or low muscle mass, and may affect results. Cystatin C with Glomerular Filtration Rate is a suitable alternative for these patients. 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: [id number] : 1940 Requested By: Order Number: [id number] Reading MD: Sen Tanner Measurements Intervals Badger Rate: 70 P: 67 ID: [id number] QRS: -35 QRSD: 90 T: 14 QT: 406 QTc: 438 Interpretive Statements Normal sinus rhythm Left axis deviation Abnormal ECG Electronically Signed On 03-30-2025 18:29:13 CDT by Sen Tanner Procedure Note Sen Tanner MD - 03/30/[address] [address] Test Date: 2025-03-28 Pat Name: JAVIER STUBBS Department: 12 Room: 3258 02 Gender: Female Patrol Conductor: [id number] : 1940 Requested By: Order Number: [id number] Reading MD: Sen Tanenr Measurements Intervals Badger Rate: 70 P: 67 ID: [id number] QRS: -35 QRSD: 90 T: 14 QT: 406 QTc: 438 Interpretive Statements Normal sinus rhythm Left axis deviation Abnormal ECG Electronically Signed On 03-30-2025 18:29:13 CDT by Sen Tanner us Driss Dahl MD ECG ORDERABLES Final Result Performing Organization Address City/[facility] Co de Phone Number INTERFACE SYSTEM Refer to clinic/hospital department * EXTRA TUBE (URINE PRINCE) (03/28/2025 12:06 AM CDT) Urine URINE SPECIMEN OBTAINED BY CLEAN CATCH PROCEDURE / Unknown Collection / Unknown 03/28/2025 12:06 AM CDT 03/28/2025 12:12 AM CDT Driss Dahl MD URINE ORDERABLES Final Resul t Performing Organization Address City/[facility] Co de Phone Number [facility] CLIA # [id number] [address] [place] [address] * (ABNORMAL) URINALYSIS WITH REFLEX MICROSCOPIC (03/28/2025 12:06 AM CDT) COLOR UA Yellow Pale to Dark Yellow 03/28/2025 12:27 AM CDT [facility] CLARITY UA Clear Clear 03/28/2025 12:27 AM CDT [facility] SPECIFIC GRAVITY UA 1.025 1.003 - 1.035 03/28/2025 12:27 AM CDT [facility] PH UA 5.5 5.0 - 8.0 03/28/2025 12:27 AM CDT [facility] LEUKOCYTE ESTERASE UA Negative Negative 03/28/2025 12:27 AM T [facility] NITRITE UA Negative Negative 03/28/2025 12:27 AM [facility] PROTEIN UA 1+(A) Negative 03/28/2025 12:27 AM T [facility] GLUCOSE UA Negative Negative 03/28/2025 12:27 AM T [facility] KETONES UA Trace(A) Negative 03/28/2025 12:27 AM T [facility] UROBILINOGEN UA 0.2 <2.0 mg/dL 12:27 AM T [facility] BILIRUBIN UA Negative Negative 03/28/2025 12:27 AM [facility] BLOOD UA 2+(A) Negative 03/28/2025 12:27 AM [facility] WBC UA 0-2 0 - 2 /hpf 03/28/2025 12:27 AM T [facility] RBC UA 51-100(A) 0 - 2 /hpf 03/28/2025 12:27 AM [facility] BACTERIA UA 3+(A) Negative /hpf 03/28/2025 12:27 AM [facility] EPITHELIAL CELLS, URINE 0-5 0 - 5 /hpf 03/28/2025 12:27 AM [facility] HYALINE CAST 11-25(A) None Seen, 0-2 /lpf 03/28/2025 12:27 AM [facility] YEAST, BUDDING Present(A) Absent 03/28/2025 12:27 AM [facility] Urine URINE SPECIMEN OBTAINED BY CLEAN CATCH PROCEDURE / Unknown Collection / Unknown 03/28/2025 12:06 AM CDT 03/28/2025 12:12 AM CDT us Driss Dahl MD URINE ORDERABLES Final Resul t [facility] CLIA # [id number] [facility] [address] * (ABNORMAL) URINE CULTURE (03/28/2025 12:06 AM CDT) CULTURE NAKASEOMYCES GLABRATUS(A) LORA MCG/ML 04/03/2025 3:33 PM CDT [facility] Comment: Sent to the [facility],[place] See separate or scanned report. Urine URINE SPECIMEN OBTAINED BY CLEAN CATCH PROCEDURE / Unknown Collection / Unknown 03/28/2025 12:06 AM CDT 03/28/2025 12:12 AM CDT Narrative [facility] - 04/03/2025 3:33 PM CDT See scan for results from reference laboratory. Driss Dahl MD MICROBIOLOGY - GENERAL ORDER RAVEN Final Result Performing Organization Address City/[facility]/ZIP Co de Phone Number [facility] CLIA # [id number] [address] [place] [address] * (ABNORMAL) IRON, TIBC, AND PERCENT SATURATION (03/27/2025 8:24 PM CDT) IRON 42 37 - 145 ug/dL 03/28/2025 12:42 AM CDT [facility] TIBC 144(L) 250 - 450 ug/dL 03/28/2025 12:42 AM CDT [facility] IRON % SATURATION 29 15 - 60 % 03/28/2025 12:42 AM CDT [facility] Blood Venipuncture / Unknown 03/27/2025 8:24 PM CDT 03/27/2025 8:44 PM CDT Driss Dahl MD CHEMISTRY ORDERABLES Final R esult Performing Organization Address City/[facility]/ZIP Co de Phone Number [facility] CLIA # [id number] [address] [address] * PROTIME-INR (03/27/2025 8:24 PM CDT) Pathologist [facility] PROTIME 14.7 12.7 - 14.9 Seconds 03/27/2025 8:51 PM CDT [facility] INR 1.1 0.8 - 1.2 03/27/2025 8:51 PM CDT [facility] Blood Venipuncture / Unknown 03/27/2025 8:24 PM CDT 03/27/2025 8:39 PM CDT Narrative [facility] - 03/27/2025 8:51 PM CDT Expected Values for INR: DVT/PE Goal INR 2.5; range 2.0 - 3.0 Valve Replacement Tissue Goal INR 2.5; range 2.0 - 3.0 Valve Replacement Mechanical Goal INR 3.0; range 2.5 - 3.5 POST-NM Goal INR 2.5; range 2.0 - 3.0 or Goal INR 3.0; range 2.5 - 3.5 Atrial Fibrillation Goal INR 2.5; range 2.0 - 3.0 Ischemic Stroke Goal INR 2.5; range 2.0 - 3.0 Driss Dahl MD HEMATOLOGY ORDERABLES Final Result Performing Organization Address City/State/[facility] Co de Phone Number [facility] CLIA # [id number] [address] [address] * (ABNORMAL) FERRITIN (03/27/2025 8:24 PM CDT) [facility] FERRITIN 541.8(H) 13.0 - 150.0 ng/mL 03/28/2025 12:40 AM CDT [facility] Blood Venipuncture / Unknown 03/27/2025 8:24 PM CDT 03/27/2025 8:44 PM CDT Driss Dahl MD CHEMISTRY ORDERABLES Final R esult Performing Organization Address [facility]/ZIP Co de Phone Number [facility] CLIA # [id number] [address] [facility] [place] [address] * TYPE AND SCREEN (03/27/2025 8:21 PM CDT) ABO GROUP B 03/27/2025 9:56 PM CDT [facility] RH (D) TYPE Positive 03/27/2025 9:56 PM CDT [facility] ANTIBODY SCREEN Negative 03/27/2025 9:56 PM CDT [facility] Blood Venipuncture / Unknown 03/27/2025 8:21 PM CDT 03/27/2025 8:39 PM CDT Driss Dahl MD BLOOD BANK ORDERABLES Edited Result - Final Performing Organization Address [facility] Co de Phone Number [facility] [email or web address] [facility] CLIA#[id number] [address] [place] [address], * XR CHEST PA OR AP 1 [...] Months Insurance MEDICARE PART A AND B [facility] Advance Directives For more information, please contact: [phone] * Full Code (Latest Code Status on File) Date Activated Date Inactivated Comments 03/27/2025 7:16 PM 04/03/2025 4:08 AM
--- OUTSIDE RECORDS SUMMARY | 2025-04-04 21:45 | XMS_ITS | Patient Health Record ---
Author Organization [facility] [employer] Address [address] [place], [place] [address] Care Team Providers Care Food Storeroom Clerk Name Role Phone Sudheer Canchola DO Primary Care Provider Unavaildajuan Montes De Oca MD, Aneesh Unavailable [phone] Ozzie STEEN, Jas Unavailable Unavailable Trisha Miles Unavailable [phone] Allergies No Known Allergies Results Component Value [...] W/U Status Risk Notes Problem Solitary sacroiliitis (518811116) Sacroiliitis, not elsewhere classified (M46.1) Active confirmed Problem Lumbosacral spondylosis without myelopathy (61045611) Spondylosis without myelopathy or radiculopathy, lumbar region (M47.816) Active confirmed Problem High risk drug monitoring status (293935570) 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 analgesic (Z79.891) Active confirmed Problem Sleep disorder (01128553) Other sleep disorders (G47.8) Active confirmed Problem Chronic pain (49365239) Other chronic pain (G89.29) Active confirmed Problem Disorder of lumbar disc (871008085) Other intervertebral disc disorders, 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) Active confirmed Problem Radiculopathy (32085073) Radiculopathy, site unspecified (M54.10) Active confirmed Problem Post-laminectomy syndrome (67832087) Postlaminectomy syndrome, not elsewhere classified (M96.1) Active confirmed Problem Long-term current use of drug therapy (528907424) 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 (Z79.899) Active confirmed Problem Vertebrogenic low back pain (116173143872896 101) 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 Vital Signs Temperature 93.8 degrees Fahrenheit 02/18/2025 Blood pressure diastolic 73 mm Hg 12/24/2024 Oximetry 98 % 02/18/2025 Height 60 in 02/18/2025 Blood pressure systolic 150 mm Hg 12/24/2024 Weight 148.6 lbs 12/24/2024 BMI 29.02 kg/m2 12/24/2024 Encounters Encounter Location Date Provider Diagnosis [facility] [address] [place], [place] [id number] 08/11/2024 Trisah Sneed Vertebrogenic low ba ck pain M54.51 ; Spondylosis without myelopathy or radiculopathy, lumbar region M47.816 ; Sacroiliitis, not elsewhere classified M46.1 ; Other intervertebral disc disorders, lumbar region M51.86 ; Postlaminectomy syndrome, not elsewhere classified M96.1 ; Other sleep disorders G47.8 and 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 Z79.899 [facility] [address] [place], [place] [phone] 08/20/2024 Aneesh Montes De Oca Vertebrogenic low ba ck pain M54.51 ; Postlaminectomy syndrome, not elsewhere classified M96.1 ; Other sleep disorders G47.8 and Other retirement (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 therapy Z79.8[address] [facility] [address] [id number] 09/03/2024 Aneesh Montes De Oca Vertebrogenic low ba ck pain M54.51 ; Other chronic pain G89.29 ; Postlaminectomy syndrome, not elsewhere classified M96.1 ; Other sleep disorders G47.8 and Other retirement (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 therapy Z79.899 [facility] [address] [place] [id number] 10/29/2024 Aneesh Montes De Oca Vertebrogenic low ba ck pain M54.51 ; Other chronic pain G89.29 ; Postlaminectomy syndrome, not elsewhere classified M96.1 and Other sleep disorders G47.8 [facility] [address] [place] [id number] 12/24/2024 Aneesh Montes De Oca Vertebrogenic low ba ck pain M54.51 ; Other chronic pain G89.29 ; Postlaminectomy syndrome, not elsewhere classified M96.1 and Other sleep disorders G47.8 [facility] [address] [place], [place] [phone] 02/18/2025 Aneesh Montes De Oca Vertebrogenic low [...] [facility] 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 Plan to continue oral opioid medication [...] not get very much sleep - for remote computer terminal operator duration). Patient has been counseled on [...] as described in the report. 08/20/2024 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 (ICD-10 - Z79.899) [...] not get very much sleep - for retirement duration). 10/29/2024 Other sleep disorders (ICD-10 - [...] to sleep for safety concerns. 09/03/2024 Other retirement (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 therapy (ICD-10 - Z79.899) Patient [...] M96.1) Plan to obtain Operative Note from [facility]. Consider interventional treatment pending evaluation by Dr. Montes De Oca. 08/11/2024 Other sleep disorders (ICD-10 - G47.8) Consider completion of a sleep study. 08/11/2024 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 (ICD-10 - Z79.899) [...] closing due to Dr. Montes De Oca's halfway; see scanned document. Terminal prescriptions were given [...] Medicare Part B Claims Department [address] [address] [place] [address] [id number] Gita Stubbs Self - patient is the insured [employer] [address] [place] [phone] [id number] Gita Stubbs Self - patient is the [...] and restless legs (and some hypersomnia - Newhall score = 6) Surgical History Surgery Date(Month/Year) Left carpal tunnel release at [facility], 1970s Knee replacement, left, performed in [facility] 2016 Knee replacement, right, performed in [place], [place] Bilateral L3-L4 laminotomies / facetectomies, performed at [facility] by Dr. Brooke, 03/16/14 Right carpal tunnel release at [facility] by Tejas Burkett, 2022 Hospitalization History Reason Date(Month/Year) Confusion and UTI, treated [facility], 05/13/24
--- OUTSIDE RECORDS SUMMARY | 2025-04-04 21:45 | XMS_ITS | Encounter Summary ---
Author Organization [facility] Address [address] [place] [address] Care Team Providers Care Crm Business Analyst Name Role Phone Unavailable Primary Care Provider [...] Description 04/22/2025 9:45 AM CDT Office Visit [facility] Gen Spec Surg [facility] [address] [place] [address] Tucker Marroquin MD [address] [place] [id number] documented as of this encounter Visit Diagnoses Not on filedocumented in this encounter
--- OUTSIDE RECORDS SUMMARY | 2025-04-04 21:45 | XMS_ITS | Encounter Summary ---
Author Organization [facility] Address [address] [place] [address] Care Team Providers Care Railroad Track Inspector Name Role Phone Unavailable Primary Care Provider [...] Description 04/22/2025 9:45 AM CDT Office Visit [facility] Gen Spec [place] [facility] [address] [place] [address] Tucker Marroquin MD [address] [place] [phone] documented as of this encounter Visit Diagnoses Not on filedocumented in this encounter
--- OUTSIDE RECORDS SUMMARY | 2025-04-04 21:45 | XMS_ITS | Encounter Summary ---
Author Organization [facility] Address [address] [place] [address] Care Team Providers Care Portuguese Tutor Name Role Phone Unavailable Primary Care Provider [...] [facility] [place] [facility] [address] [place] [address] Tucker Marroquin MD [address] [place] [phone] documented as of this encounter Visit Diagnoses Not on filedocumented in this encounter
[2025-04-04 21:48] VITALS: BP 157/57; PULSE 106; RESP 16; TEMP 36.7; O2SAT 98; BMI 29.2
--- NOTE | 2025-04-04 21:51 | W.ED.ABDPA2 ---
HPI - Abdominal Pain General: Chief Complaint: Wound/Laceration Stated Complaint: Drain issues Time Seen by Provider: 04/04/25 21:45 History of Present Illness: Patient is a resident at [facility] for rehabilitation and has an abscess to sigmoid colon with Olamide located posterior just below sacroiliac joint that was brought back here with concern to the bag not draining. Patient had areas of fecal matter around the Olamide as she did yesterday. This was discussed yesterday with the patient's primary surgeon out of [place]. Patient has no complaints, residential sent patient here for concern of the bag not draining. Patient does not have any fevers. She is passing gas. She is able have a bowel movement through her anus as well. She has no nausea, vomiting. Associated Symptoms: Denies chills, fever(s), nausea and vomiting Related Data Home Medications ?Medication ?Instructions ?Recorded ?Confirmed ibuprofen 200 mg tablet (Motrin IB) 200 mg PO BID PRN Pain 10/28/19 03/22/25 Previous Rx's ?Medication ?Instructions ?Recorded acyclovir 5 % topical ointment See Rx Instructions .Route 07/14/24 .COMPLEX #15 grams ferrous sulfate 325 mg (65 mg 325 mg PO DAILY #90 tabs 10/30/24 iron) tablet hydrocodone 10 mg-acetaminophen 1 tab PO BID PRN pain 1 day #1 tab 01/19/25 325 mg tablet prednisone 10 mg tablet See Rx Instructions .Route 02/24/25 .COMPLEX #90 tabs wheeled walker, with brakes, seat #1 ea 02/24/25 sulfamethoxazole 800 1 tab PO BID infection 7 days #14 02/26/25 mg-trimethoprim 160 mg tablet tabs (Bactrim DS) pantoprazole 20 mg tablet,delayed See Rx Instructions .Route 03/03/25 release .COMPLEX #60 tabs clopidogrel 75 mg tablet 75 mg PO DAILY #90 tabs 03/04/25 Allergies Allergy/AdvReac Type Severity Reaction Status Date / Time No Known Allergies Allergy Verified 02/24/25 09:28 Review of Systems General: Reports: 10 or more systems reviewed and unremarkable except in HPI and below Const: Denies: fever(s) or chills Eyes: Denies: change in vision or blurry vision ENMT: Denies: throat pain Card: Denies: chest pain or palpitations Resp: Denies: dyspnea or productive cough GI: Denies: abdominal pain, nausea or vomiting : Denies: flank pain or difficulty voiding Musc: Denies: neck pain or back pain Skin/Breast: Denies: rash or pruritus Neuro: Denies: headache(s) or numbness in extremities Psych: Denies: anxiety or depression [facility] PFSH: Medical History (Updated 04/05/25 @ 01:21 by EDD Granger) 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 Chronic narcotic use Restless leg syndrome Chronic left shoulder pain Arthritis Back Pain Doing well on current meds DDD (degenerative disc disease), lumbar Degenerative lumbar spinal stenosis Acquired spondylolisthesis Cervical disc disorder with myelopathy, unspecified cervical region Chronic neck and back pain Pain of right upper extremity Degenerative joint disease of both lower legs Radiculopathy, site unspecified Surgical History History of total left knee replacement Status post carpal tunnel release bilateral in 1979, left 2022 History of total right knee replacement Family History Other CAD (coronary artery disease) Hypertension Social History Smoking and tobacco/nicotine status: never used tobacco/nicotine Second hand smoke exposure: No Alcohol intake: never Substance/Drug Use: never 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 Physical Exam Const: COMMON NORMALS: no acute distress, average body habitus and patient oriented x3 HENMT: COMMON NORMALS: normocephalic and atraumatic HEAD & SCALP: normocephalic and atraumatic Lymph: LYMPHATIC: no lymphadenopathy noted Chest: COMMONS NORMALS: normal palpation of entire chest wall and normal palpation of the breasts BREAST/AXILLA PALPATION: Yes normal palpation of the breasts Resp: COMMON NORMALS: normal respiratory effort, No retractions and clear to auscultation bilaterally AUSCULTATION: clear to auscultation bilaterally Cardio: COMMON NORMALS: regular rate and regular rhythm RATE: regular rate RHYTHM: regular rhythm GI: COMMON NORMALS: Normal to inspection, nondistended, normoactive bowel sounds present, Soft to palpation and non-tender PALPATION: Yes Soft to palpation : COMMON NORMALS: Yes no CVA tenderness BLADDER/KIDNEY EXAM: Yes no CVA tenderness Back/Pelvis: COMMON NORMALS: no CVA tenderness SACROILIAC JOINTS: Yes SI joints normal BACK IMAGE (FEMALE):  1. olamide Extremity: COMMON NORMALS: normal to inspection, full ROM and capillary refill normal Neuro: COMMON NORMALS: patient oriented x3 Psych: COMMON NORMALS: mental status grossly normal and Normal thought process present THOUGHT PROCESS: Normal thought process present Course Vital Signs: Vital signs: Vital Signs Temperature 98.1 F 04/04/25 21:48 Pulse Rate 106 H 04/04/25 21:48 Respiratory Rate 16 04/04/25 21:48 Blood Pressure 157/57 04/04/25 21:48 Pulse Oximetry 98 04/04/25 21:48 MDM - Abdominal Pain Medical Decision Making Patient was evaluated at bedside. She did have some leaking around her Olamide. Dressing change will be done. This is fairly normal on this type of external drainage system. There was no red flags. There was no redness around this area. There was minimal amount of feces in the bag yesterday as well. Discussed this with the primary doctor regarding any issues with this system to return patient to [facility] for evaluation, since they placed this external special drainage system that is not applicable at this facility or available. With issues with this patient, we are unable to help her. I explained that to primary care physician on voicemail. I was able to connect with him directly. I discussed this with the residential yesterday as well and discussed that patient would be more of benefit to go to [facility]. All radiology interpretation(s) finalized by discharge Discharge Plan Discharge Patient Disposition: Home Clinical Impression: Fistula Condition: Stable Prescriptions: No Action ibuprofen [Motrin IB] 200 mg tablet 200 mg PO BID PRN (Reason: Pain) (DME) wheeled walker, with brakes, seat See Rx Instructions .Route .MEDSUPPLY Qty: 1 0RF Rx Instructions: As directed prednisone 10 mg tablet See Rx Instructions .ROUTE .COMPLEX Qty: 90 1RF Dose Instruction: TAKE 2&1/2 tABLETS BY MOUTH EVERY DAY FOR arthritis pain or inflammation Rx Instructions: TAKE 2&1/2 tABLETS BY MOUTH EVERY DAY FOR arthritis pain or inflammation hydrocodone-acetaminophen 10-325 mg tablet 1 tab PO BID PRN (Reason: pain) 1 Days Qty: 1 0RF acyclovir 5 % ointment See Rx Instructions .ROUTE .COMPLEX Qty: 15 3RF Dose Instruction: APPLY TO THE AFFECTED AREA(S) six times a DAY FOR COLD SORES FOR SEVEN DAYS Rx Instructions: APPLY TO THE AFFECTED AREA(S) six times a DAY FOR COLD SORES FOR SEVEN DAYS sulfamethoxazole-trimethoprim [Bactrim DS] 800-160 mg tablet 1 tab PO BID 7 Days Qty: 14 0RF pantoprazole 20 mg tablet,delayed release (DR/EC) See Rx Instructions .ROUTE .COMPLEX Qty: 60 11RF Dose Instruction: TAKE ONE TABLET BY MOUTH TWICE DAILY *take 30 minutes before breakfast and 30 minutes before dinner ON empty stomach* Rx Instructions: TAKE ONE TABLET BY MOUTH TWICE DAILY *take 30 minutes before breakfast and 30 minutes before dinner ON empty stomach* clopidogrel 75 mg tablet 75 mg PO DAILY Qty: 90 3RF ferrous sulfate 325 mg (65 mg iron) tablet 325 mg PO DAILY Qty: 90 0RF Discharge Orders: Discharge ED (Routine); Ordered 04/04/25 Ordered By: Callie Vernon Referrals: Sudheer Canchola DO [Primary Care Provider, Family Practice] Patient Instructions: Patient Portal & Dao Instructions Activity Restrictions/Additional Instructions: Follow directions from yesterday Go to [facility] if you have further issues with this external tube. We have no way of helping you here unless there is a change and not associated with this external tube. Take her to the ER if fever is greater than 100.4 ?F, increasing redness, unable to wake patient, changing in vital signs. Print Language: Tunisian Coding Level of Care Code ED Bin Packer for Rosamaria Johns
== END 2025-04-04 22:05 | disposition home or self-care (01) ==
PROVIDERS: Emergency Provider Physician Assistant; PCP Family Medicine
DX: L98.8 Other specified disorders of the skin and subcutaneous tissue (principal); Z79.02 Long term (current) use of antithrombotics/antiplatelets
CPT/HCPCS: 99282

== ENCOUNTER 2025-04-06 16:24 | Emergency (ER) | payer MEDICARE, OTHER, SELFPAY ==
--- OUTSIDE RECORDS SUMMARY | 2025-03-27 18:59 | XMS_ITS | Encounter Summary ---
Author Organization [facility] Address [address] [place] [address] Care Team Providers Care Contractor Broomcorn Threshing Name Role Phone Unavailable Primary Care Provider Unavailabl e Reason for Referral * Eval and Treat (8-30 Days) - Authorized Specialty Diagnoses / Procedures Referred By Grery t Referred To Contact Diagnoses Sigmoid diverticulitis Procedures [place] OFFICE/OUTPATIENT ESTABLISHED MOD MDM 30 MIN [place] OFFICE/OUTPATIENT NEW MODERATE MDM 45 MINUTES Tucker Marroquin MD [facility] [address] [address] Phone: tel: fax: Referral ID Status Reason Start Date Expiration Date V isits Requested Visits Authorized [id number] Authorized 04/02/2025 04/02/2026 1 1 Reason for Visit * Auth/Cert (Routine) Specialty Diagnoses / Procedures Referred By Contac t Referred To Contact Internal Medicine Diagnoses ABDOMINAL PAIN Garth Azar MD [address] [place] [address] Phone: tel: fax: [facility] 3D Medical Telemetry [address] [place] [address] Phone: tel: fax: Referral ID Status Reason Start Date Expiration Date Visits Re quested Visits Authorized [id number] 1 1 Encounter Details Date Type Department Care Team (Latest Contact Info) Description 03/27/2025 6:59 PM CDT - 04/03/2025 12:02 AM CDT Hospital Encounter [facility] 3D Medical Telemetry [address] [place] [address] Garth Azar MD [address] [place] [address] Driss Dahl MD [address] [place] [address] Rico Galvan MD [address] [place] [address] Sigmoid diverticulitis Discharge Disposition: Care Home Fac(SNF) with Medicare Certification in Anticipation of [...] Galvan MD - 04/02/2025 11:10 AM CDT [facility] Hospitalist- Discharge Summary Javier Stubbs 85 y.o. female 1940 CSN: [id number] Date of Admission: 03/27/2025 Date of Discharge: [...] along the planned trajectory. Next, a 5 Venezuelan Yueh needle/catheter combination was advanced using CT fluoroscopy as a guide to the target pelvic abscess and the needle was removed with the catheter remaining in place. Next, through the 5 Venezuelan catheter a 035 wire was advanced into the targeted fluid collection. Over the wire 5 Venezuelan catheter was removed and a 10 Fr [...] indwelling Rollins, GERD, anemia Patient presented to [facility] on 03/22 for generalized weakness, [...] was consulted for CT- guided drain placement 03/29 -reviewed [...] No primary care provider on file. via [employer] communication MEDICATION CHANGES (significant): Please see below [...] Kylah Galvan Refills: 0 naloxone 4 mg/spray [place], Non-Aerosol Commonly known as: NARCAN EMERGENCY USE [...] amoxicillin-clavulanate 875-125 mg tablet naloxone 4 mg/spray [place], Non-Aerosol saccharomyces boulardii 250 mg Capsule zinc [...] IN TOUCH WITH Remy Please consider using [email or web address] to communicate with Dr. Marroquin's office. Messages [...] and we can make those arrangements. The [employer] aurelio can also allow you to send inquiries directly to us as well as submit pictures of wounds, etc. Often the aurelio is the most efficient way to each our healthcare team. Ifyou don't have it already please search your aurelio store for [email or web address]. DIET Return to your usual diet. It [...] walk around! - Do not lift, push, seedling puller 10 pounds May return to work/school when [...] office on the next business day at [phone]. There is a physician on-call after hours for emergency reasons only. DO NOT SMOKE AND AVOID SECOND-HAND SMOKE. Tobacco smoke can delay the healing process by decreasingthe oxygen supply to your wound, & may increase your risk of infection. Smoking irritates the breathing passages and increases the risk of pneumonia, bronchitis, asthma and risk of blood clots. [facility] Care Home Discharge Instructions Discharge & Transfer patient to: Name of Facility: [facility] Transfer care to Attending Provider at Care Home Facility Symptoms/Diagnosis: Sigmoid diverticulitis Procedures Performed, if [...] DIET: DIET GENERAL Effective Now Wound Care: {[id number]::Not Applicable} Other Comments: See above for drain care instructions. Follow up in the Emergency Room For any recurrence or worsening of admission concerns, chest pain, palpitations, shortness of breath, coughing blood, nausea, vomiting, diarrhea, pain, fever, chills, bleeding, bloody or tarry stools, change to urine or bowel output, Contact hospitalist office [phone] for questions if patients are discharged by [facility] Hospitalistgroup. Contact [facility] Transfer Hub at [phone] if patient needs a direct admission. Tell [...] times daily. 04/02/2025 naloxone (NARCAN) 4 mg/spray [place], Non-Aerosol EMERGENCY USE ONLY: Administer 1 spray [...] 11:41 AM CDT Report called to [facility]. * Rico Galvan MD - 04/01/2025 12:34 PM CDT Images from the original note were not included. Your life is our life's work [facility] Hospitalist/Hospital Medicine Progress Note LOS: 5 days Room/Bed: 3258/02 Patient name: Javier Stubbs Date of : 1940 HOSPITAL COURSE SUMMARY: Javier Stubbs, a 85 y.o. female with PMH significant for arthritis on high-dose steroids, lumbar radiculopathy, indwelling Rollins, GERD, anemia Patient presented to [facility] on 03/22 for generalized weakness, [...] PRN, Rico Galvan MD, 2 Tablet at 03/31/252039 zinc OXIDE-cod liver oil (DESITIN) 40 % topical paste, , Topical, BID, iRco Galvan MD, Givenat 04/01/25 1204 sodium chloride [...] up: PCP, colorectal surgery Anticipated Disposition Location: [facility] Timeframe: Medically ready Criteria: Safe disposition available Patient's understanding of illness: Fair Primary family contact: Son at bedside MDM complexity: [] Mild [x] Moderate [] High Rico Galvan MD 04/01/2025, 12:34 PM * Rico Galvan MD - 03/31/2025 11:09 AM CDT Images from the original note were not included. Your life is our life's work [facility] Hospitalist/Hospital Medicine Progress Note LOS: 4 days Room/Bed: 5468/02 Patient name: Javier Stubbs Date of : 1940 HOSPITAL COURSE SUMMARY: Javier Stubbs, a 85 y.o. female with PMH significant for arthritis on high-dose steroids, lumbar radiculopathy, indwelling Rollins, GERD, anemia Patient presented to [facility] on 03/22 for generalized weakness, [...] 70.1 kg (154 lb 8.7 oz) (03/30/25 3332) EXAM: General: Alert and oriented Neurologic: No [...] barely perceptible pit (no findings) (03/31/25899) Hand Test Worker: Unable to assess (03/31/25899) Percentage of Energy: < or equal to 75% for > or equal to 1 month (severe- chronic) (03/31/25899) Percentage of Weight Loss: Other (see comments) (unable to confirm) (03/31/25899) Malnutrition Decision Malnutrition Nutrition Diagnosis: Moderate protein-calorie malnutrition (03/31/25899) BMI BMI (Calculated): (!) 30.18 (03/30/25 2276) Malnutrition Recommendations Nutrition Interventions: Encourage adequate intake;Encourage [...] barely perceptible pit (no findings) (03/31/25899) Hand Test Worker: Unable to assess (03/31/25899) Percentage of Energy: < or equal to 75% for > or equal to 1 month (severe- chronic) (03/31/25899) Percentage of Weight Loss: Other (see comments) (unable to confirm) (03/31/25899) Estimated Needs: Estimated Energy Target: 3611-2901 (03/31/25899) Estimated Protein Target: 55-65 (03/31/25899) Estimated Fluid Target : 9664-1147 (03/31/25899) Nutrition Energy Formula: Calories per kilogram (03/31/25899) Weight Used for Formula: Adjusted body weight (51kg) (03/31/25899) Clinical Data: Height: 5' (152.4 cm) (03/27/251899) [place] body weight: 45.5 kg (100 lb 4.9 [...] 03/31/25 (03/31/25 0848) Stool Consistency - Reference [place] Stool Chart: unformed - (type 6/7) (03/31/25 0848) Bowel Sounds: All Quadrants: hypoactive (03/31/25 0310) Allergies: No Known Allergies No past medical history on file. Time spent:Consultation Time (mins): 25 mins (03/31/25 09) * Marla Das, Occupational Therapist - 03/30/2025 2:11 PM CDT [facility] - Therapy Services 3K Ph. Acute Occupational Therapy Evaluation 03/30/2025 Room: [address] [place] [address] Name: Javier Stubbs Age: 85 y.o. Patient [...] Daily Living Feeding: NT; anticipate independent for evxv-ic-hpxqa excursion Grooming: supervision seated in chair to [...] tasks, sequencing, command following, and problem solving. [facility] AM-PAC Daily Activity How much help from [...] activity, anticipated discharge disposition, once medically ready: jail facility (03/30/251410). Rationale: Patient needs daily (weekday) skilled OT services. Anticipate tolerance is limited for intensive or adapted intensive rehab program. Safety concerns present. * The final discharge locationis determined through physician, case management, and patient/caregiver input along with insurance authorization of skilled services when appropriate. Plan of care and discharge recommendations shared with patient, direct care worker, and PT OT recommended DME and AE [...] Physical Therapist - 03/30/2025 1:06 PM CDT [facility] - Therapy Services 3K Ph. Acute Physical Therapy Evaluation 03/30/2025 Room: [address] [place] [address] Name: Javier Stubbs Age: 85 y.o. 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 or FWWswitching Patient does [...] Mobility: Supine to sit: moderate assistance with RN PERINATAL to sit upright Sit to stand: maximal assistance for safety, balance and weakness Bed to chair: moderate assistance for increased time to perform, fatigue and safety Gait Training: Did not perform due to weakness Patient required verbal cues energy conservation Balance: Sitting: Normal Standing: Abnormal: mod A for transfer Vitals Patient on room air Vital signs stable throughout session [facility] AM-PAC Basic Mobility How much help from [...] does seem to either be disoriented or [place] with questions Plan will include but is [...] assessment of and/or progress with physical function, [facility] Basic Mobility score, potential for improvement, available home support, participation in therapeutic intervention, tolerance for activity, and safety , anticipated discharge disposition once medically ready: jail facility (03/30/25 1306). Pt needs daily (weekday) [...] included. Your life is our life's work [facility] Hospitalist/Hospital Medicine Progress Note LOS: 3 days Room/Bed: 3258/02 Patient name: Javier Stubbs Date of : 1940 HOSPITAL COURSE SUMMARY: Javier Stubbs, a 85 y.o. female with PMH significant for arthritis on high-dose steroids, lumbar radiculopathy, indwelling Rollins, GERD, anemia Patient presented to [facility] on 03/22 for generalized weakness, [...] region, purulent drainage LABORATORY: Recent Labs 03/27/25202303/28/25 0512 03/29/25 0336 WBC 7.3 8.4 10.4 HGB 8.5* 8.4* [...] included. Your life is our life's work [facility] Hospitalist/Hospital Medicine Progress Note LOS: 2 days Room/Bed: 3258/02 Patient name: Javier Stubbs Date of : 1940 HOSPITAL COURSE SUMMARY: Javier Stubbs, a 85 y.o. female with PMH significant for arthritis on high-dose steroids, lumbar radiculopathy, indwelling Rollins, GERD, anemia Patient presented to [facility] on 03/22 for generalized weakness, [...] 67.2 kg (148 lb 2.4 oz) (03/28/25 1940) EXAM: General: Alert, uncomfortable appearing Neurologic: No gross focal deficits although limited exam due to discomfort/hard of hearing HEENT: atraumatic, Normocephalic, hard of hearing Lungs: clear to auscultation bilaterally anteriorly Heart: normal rate, normal S1-S2 Abdomen: Soft, drain in place with posterior access to left pelvic region, purulent drainage LABORATORY: Recent Labs 07/01/17 202403/28/2551103/29/25 0336 WBC 7.3 8.4 10.4 HGB 8.5* 8.4* [...] Driss Dahl MD, 5,000 Units at 03/29/25 0529 cefTRIAXone (ROCEPHIN) 2,000 mg in sodium [...] included. Your life is our life's work [facility] Hospitalist/[facility] Medicine Progress Note LOS: 1 day Room/Bed: 9025/02 Patient name: Javier Stubbs Date of : 1940 HOSPITAL COURSE SUMMARY: Javier Stubbs, a 85 y.o. female with PMH significant for arthritis on high-dose steroids, lumbar radiculopathy, indwelling Rollins, GERD, anemia Patient presented to [facility] on 03/22 for generalized weakness, [...] included. Your life is our life's work [facility] Hospitalist-Driss Dahl MD History and physical- date of admission: 03/27/2025 Patient name: Javier Stubbs Date of : 1940 CSN number: [id number] PCP: No primary care provider on file. Chief Complaint: No chief complaint on file. History of present illness: Pt seen and examined at the bedside Javier Stubbs is a 85 y.o. female with PHM of lumbar radiculopathy, osteoarthritis who has been transferred from [facility] to [facility] medicine service on 03/27/2025 for interventional radiology evaluation for diverticulitis with abscess. Patient initially presented to [facility] on 03/22/2025 for generalized weakness, nausea and [...] daily. No prior history of CVA or AR. She reports that she was started on [...] record, Referring and communication with other health career resource technician (not separately reported), Independently interpreting results and [...] NAME: Javier Stubbs DATE OF : 1940 [facility]: [id number] DATE: 03/27/2025 Room: [address] [place] [address] Admit Date: 03/27/2025 Hospital day: LOS: 0 [...] along the planned trajectory. Next, a 5 Venezuelan Yueh needle/catheter combination was advanced using CT fluoroscopy as a guide to the target pelvic abscess and the needle was removed with the catheter remaining in place. Next, through the 5 Venezuelan catheter a 035 wire was advanced into the targeted fluid collection. Over the wire 5 Venezuelan catheter was removed and a 10 Fr [...] note were not included. Skin/Wound/Ulcer/Pressure Injury Consult [facility] Patient Information Today's Date: 03/28/2025 Name: Javier Stubbs Age: 85 y.o. Date of : 1940 CSN: [id number] Date/time of admission: 03/27/2025 6:59 PM Hospital day: LOS: 1 day Room: [address] [place] [address] Physical Assessment Wound Details: Pressure Injury 03/28/25 [...] type: IsoTour Gel Change surface area to: [place] NOTES: Focused skin assessment per consult order. [...] Emma Wilson RN Skin/Wound/Ostomy Please call hospital doweling machine operator to have skin team paged with questions or needs. Cosigned by Rico Galvan MD at 03/30/2025 1:02 PM CDT * Curtis Cevallos RN - 03/27/2025 9:28 PM CDTAssociated Order(s): IP CONSULT TO IV TEAM VASCULAR ACCESS CONSULT PATIENT NAME: Javier Stubbs DATE OF : 1940 CSN: [id number] DATE: 03/27/2025 Room: [address] [place] [address] Admit Date: 03/27/2025 Hospital day: LOS: 0 [...] excoriation. * Care Plan - Laura Moreira SIGN DESIGNER - 04/02/2025 10:16 AM CDT Counseling Services Director Discharge Planning Expected Discharge Date Apr 02, 2025 Plan Discharge To: Care Home Facility (04/02/25916) Plan Discharge To - Alternate: Home Health Services (04/02/25916) Patient likely to discharge to SNF at [facility] today per physician conversation. ADRI spokewith Sophie at the facility who reports they are ready for the patient today. ADRI scheduled EMS on will call while awaiting discharge orders, see below for report & transportation details. 04/02/25 0800 Discharge Planning Transportation Provider [facility] EMS Transportation Contact Name William Transportation Provider Phone [phone] Final Discharge Arrangements Final Discharge Disposition SNF Care Facility Name [facility] Care Facility Contact Name Tejas El nursing staff Care Facility Phone Number P:[phone] F:[phone] Services Arranged For Discharge jail facility (SNF) Date Of Pick-Up 04/02/25 Time Of Pick-Up 1130 Copy of this transfer form will be sent with patient along with: AVS;Pertinent Medical Records ADD: ADRI contacted William at [facility] EMS to update the patient will be ready at 1130 for transfer. Referrals Status: Facility Referrals - Accepted and Selected Destination - Admitted Since 03/27/2025 Service Provider Services Address Phone Fax Patient Preferred [facility] [address] [place] [phone] -- Home Health/Hospice - Accepted Follow-up on Referrals Sent: Yes (04/02/25916) Preferred Pharmacy: [facility] [place], [place] - [address] Patient / Family Communications: Patient/Family Communications: Confirmed [...] Contact Name: William (04/02/25799) Transportation Provider Phone: [phone] (04/02/25799) Date Of Pick-Up: 04/02/25 (04/02/25799) Time Of Pick-Up: (Will call) (04/02/25799) XIMENA Bruno * Care Plan - Thelma Son RN - 04/01/2025 6:04 PM CDT Shift Summary Discharge planning was discussed with the patient and family, with arrangements made for transfer to a nursing home facility. Pain in the gluteal area decreased [...] patient was prepared for discharge to a nursing home facility with pain management and safety measures [...] with arrangements made for transfer to a nursing home facility. Maintain skin integrity and/or promote wound healing by discharge: Pressure injuries on the left heel and right coccyx were treated with moisture barrier cream and silicone border dressing, with no change in wound condition noted. * Care Plan - Priscila Pineda, Occupational Therapist - 04/01/2025 2:47 PM CDT [facility] - Therapy Services 3K Ph. Acute Occupational Therapy Treatment 04/01/2025 Room: [address] [place] [address] Name: Javier Stubbs Age: 85 y.o. Patient [...] BUE, kyphotic and unable to fully stand [facility] Daily Activity How much help from another [...] AM-PAC Daily Activity Score, anticipated discharge disposition: jail facility (04/01/251338) Rationale: Patient needs daily (weekday) [...] Moreira BSW - 04/01/2025 12:16 PM CDT Counseling Services Director Discharge Planning Expected Discharge Date Apr 02, 2025 Plan Discharge To: Care Home Facility (04/01/251215) Plan Discharge To - Alternate: Home Health Services (04/01/251215) Patient likely to discharge to SNF when medically stable & an accepting facility found. ADRI spoke with patient & son who are now agreeable to SNF placement. Family requesting referrals be [facility]. ADRI faxed referrals to 1. [facility], 2. [facility], & 3. [facility]. ADRI faxed referrals and is awaiting response. ADRI completed the DA-124 for the patient. The return code is [id number]. ADRI sent an email with link & code to attending physician for signature. ADD: ADRI received a call from [facility] [place] who reports they can accept the patient for tomorrow. Patient also accepted by [facility] although family requesting the higher rated facility. Referrals Status: Facility Referrals - Pending Home Health/Hospice - Accepted Follow-up on Referrals Sent: Yes (04/01/251215) Preferred Pharmacy: [facility], [place] - [address] Patient / Family Communications: Patient/Family Communications: [...] maintained. * Care Plan - Laura Moreira BSW - 03/31/2025 4:24 PM CDT Counseling Services Director Discharge Planning Expected Discharge Date Apr 01, 2025 Plan Discharge To: Home Health Services (03/28/251233) Plan Discharge To - Alternate: Home with family assist (03/28/251233) Family/Caregiver Assist Does the patient have family and/or a caregiver that is willing, able and available to assist if needed?: Yes (03/28/251233) Name and Relation: Tom [place] (03/28/251233) Patient likely to discharge Home w/ [facility] services with [facility] at Home when medically stable. ADRI spoke with Sophie at the [facility] who reports they can accept the patient although need an order & the name of PCP provider prior to scheduling services. ADRI left a voicemail message for patient'ssonDemarcus, requesting a return call. ADD: ADRI spoke with patient & patient son who report the PCP is Dr. Canchola with [facility]. ADRI contacted Sophie with the [facility] and updated on above. 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 EKG 12-LEAD was [...] of the shift but increased significantly by crushing mill operator, with the patient showing nonverbal indicators of [...] lives with son Demarcus, he is her director of environmental services. He reports her mobility as well as hermentation has been declining for the past few weeks. He says normally she gets around well with herseated walker. He believes the decline is d/t infection and is hopeful she can get back to where she was before. He would like for her to return home, with [facility] if recommended. He has no preference, referrals [...] Information Primary Emergency Contact: Demarcus Cline Address: [address] [address] [facility] Mobile Relation: Son Prescription coverage: yes Preferred Pharmacy verified: [facility] [place], [place] - [address] Insurance coverage verified: Payor: MEDICARE / Plan: MEDICARE PART A AND B / Product Type: Medicare/ Secondary Insurance:[facility] Medicaid Status: NA Has VA Benefits: [...] Care Team (Late st Contact Info) Description 04/10/2025 9:15 AM CDT Office Visit [facility] Gen Spec Surg [address] [place] [address] Tucker Marroquin MD [address] [place] [address] (work) Scheduled Referrals Name Type [...] - 145 mmol/L 04/02/2025 6:54 AM CDT [facility] POTASSIUM 4.0 3.5 - 5.1 mmol/L 04/02/2025 6:54 AM CDT [facility] CHLORIDE 109(H) 98 - 107 mmol/L 04/02/2025 6:54 AM CDT [facility] CO2 23 22 - 29 mmol/L 04/02/2025 6:54 AM CDT [facility] CALCIUM 10.0 8.8 - 10.2 mg/dL 04/02/2025 6:54 AM CDT [facility] BUN 9 8 - 23 mg/dL 04/02/2025 6:54 AM CDT [facility] CREATININE 0.65 0.51 - 0.95 mg/dL 04/02/2025 6:54 AM CDT [facility] Comment:The GFR result is no t clinically significant on patients <18 or >70 years of age. GLUCOSE 82 74 - 99 mg/dL 04/02/2025 6:54 AM T [facility] TOTAL PROTEIN 5.2(L) 6.4 - 8.3 g/dL 04/02/2025 6:54 AM [facility] ALBUMIN 2.7(L) 3.5 - 5.2 g/dL 04/02/2025 6:54 AM [facility] BILIRUBIN TOTAL 0.5 0.0 - 1.0 mg/dL 04/02/2025 6:54 AM [facility] ALKALINE PHOSPHATASE 160(H) 35 - 104 U/L 04/02/2025 6:54 AM [facility] AST 14 10 - 35 U/L 04/02/2025 6:54 AM [facility] ALT 19 <=35 U/L 04/02/2025 6:54 AM [facility] GFR >60 mL/min/1.7 3 sq meter 04/02/2025 6:54 AM [facility] Comment:eGFR calculated with 2020 CKD-EPI equation. Vegetarian diet, extremely high or low muscle mass, and may affect results. Cystatin C with Glomerular Filtration Rate is a suitable alternative for these patients. ANION GAP 8(L) 9 - 20 mmol/L 04/02/2025 6:54 AM [facility] Blood Venipuncture / Unknown 04/02/2025 6:08 AM CDT 04/02/2025 6:17 AM CDT us Rico Galvan MD CHEMISTRY ORDERABLES Final R esult [facility] CLIA # [id number] [address] [place] [id number] * (ABNORMAL) CBC WITH DIFFERENTIAL (04/02/2025 6:08 AM CDT) WBC 13.3(H) 4.8 - 10.8 K/uL 04/02/2025 6:23 AM [facility] RBC 2.95(L) 4.20 - 5.40 M/uL 04/02/2025 6:23 AM [facility] HEMOGLOBIN 9.1(L) 12.0 - 16.0 g/dL 04/02/2025 6:23 AM [facility] HEMATOCRIT 28.8(L) 36.0 - 46.0 % 04/02/2025 6:23 AM [facility] MCV 97.6 84.0 - 103.0 fL 04/02/2025 6:23 AM [facility] MCH 30.8 27.0 - 34.0 pg 04/02/2025 6:23 AM [facility] MCHC 31.6 30.0 - 35.0 g/dL 04/02/2025 6:23 AM [facility] PLATELETS 548(H) 140 - 440 K/uL 04/02/2025 6:23 AM [facility] MPV 10.0 8.9 - 12.8 fL 04/02/2025 6:23 AM [facility] RDW 15.2(H) 11.0 - 14.5 % 04/02/2025 6:23 AM [facility] RDW-STDEV 54.4(H) 37.0 - 54.0 fL 04/02/2025 6:23 AM [facility] NEUTROPHILS 83(H) 42 - 75 % 04/02/2025 6:23 AM [facility] LYMPHOCYTES 11(L) 24 - 44 % 04/02/2025 6:23 AM [facility] MONOCYTES 5 2 - 10 % 04/02/2025 6:23 AM [facility] [employer] [facility] EOSINOPHILS 0 0 - 7 % 04/02/2025 6:23 AM [facility] BASOPHILS 0 0 - 1 % 04/02/2025 6:23 AM [facility] IMMATURE GRANULOCYTES 1 0 - 2 % 04/02/2025 6:23 AM CDT [facility] NEUTROPHIL ABSOLUTE 11.06(H) 2.00 - 8.00 K/uL 04/02/2025 6:23 AM CDT [facility] LYMPHOCYTE ABSOLUTE 1.43 1.20 - 4.00 K/uL 04/02/2025 6:23 AM CDT [facility] MONOCYTE ABSOLUTE 0.72(H) 0.10 - 0.60 K/uL 04/02/2025 6:23 AM CDT [facility] EOSINOPHIL ABSOLUTE 0.01 0.00 - 0.70 K/uL 04/02/2025 6:23 AM CDT [facility] BASOPHILS ABSOLUTE 0.01 0.00 - 0.20 K/uL 04/02/2025 6:23 AM CDT [facility] IMMATURE GRANULOCYTES ABSOLUTE 0.07 0.00 - 0.10 K/uL 04/02/2025 6:23 AM T [facility] SMEAR REVIEWED: NA - Not Applicable 04/02/2025 6:23 AM CDT [facility] Blood Venipuncture / Unknown 04/02/2025 6:08 AM CDT 04/02/2025 6:16 AM CDT Rioc Galvan MD HEMATOLOGY ORDERABLES Final Result Performing Organization Address City/State/[facility] Co de Phone Number [facility] CLIA # [id number] [address] [place] [id number] * XR PELVIS 1 OR 2 VW [...] METABOLIC PANEL (03/30/2025 1:09 AM CDT) Pathologist [facility] Emergency Department SODIUM 140 136 - 145 mmol/L 03/30/2025 2:11 AM CDT [facility] POTASSIUM 4.1 3.5 - 5.1 mmol/L 03/30/2025 2:11 AM CDT [facility] CHLORIDE 109(H) 98 - 107 mmol/L 03/30/2025 2:11 AM CDT [facility] CO2 21(L) 22 - 29 mmol/L 03/30/2025 2:11 AM CDT [facility] CALCIUM 9.7 8.8 - 10.2 mg/dL 03/30/2025 2:11 AM CDT [facility] BUN 9 8 - 23 mg/dL 03/30/2025 2:11 AM CDT [facility] CREATININE 0.58 0.51 - 0.95 mg/dL 03/30/2025 2:11 AM CDT [facility] Comment:The GFR result is no t clinically significant on patients <18 or >70 years of age. GLUCOSE 137(H) 74 - 99 mg/dL 03/30/2025 2:11 AM T [facility] TOTAL PROTEIN 5.3(L) 6.4 - 8.3 g/dL 03/30/2025 2:11 AM T [facility] ALBUMIN 2.9(L) 3.5 - 5.2 g/dL 03/30/2025 2:11 AM T [facility] BILIRUBIN TOTAL 0.3 0.0 - 1.0 mg/dL 03/30/2025 2:11 AM T [facility] ALKALINE PHOSPHATASE 134(H) 35 - 104 U/L 03/30/2025 2:11 AM T [facility] AST 10 10 - 35 U/L 03/30/2025 2:11 AM [facility] ALT 24 <=35 U/L 03/30/2025 2:11 AM [facility] GFR >60 mL/min/1.7 3 sq meter 03/30/2025 2:11 AM [facility] Comment:eGFR calculated with 2020 CKD-EPI equation. Vegetarian diet, extremely high or low muscle mass, and may affect results. Cystatin C with Glomerular Filtration Rate is a suitable alternative for these patients. ANION GAP 10 9 - 20 mmol/L 03/30/2025 2:11 AM [facility] Blood Venipuncture / Unknown 03/30/2025 1:09 AM CDT 03/30/2025 1:40 AM CDT Rico Galvan MD CHEMISTRY ORDERABLES Final R esult [facility] CLIA # [id number] [address] [place] [id number] * MAGNESIUM LEVEL (03/29/2025 3:36 AM CDT) MAGNESIUM 2.0 1.6 - 2.4 mg/dL 03/29/2025 4:47 AM T [facility] Blood Venipuncture / Unknown 03/29/2025 3:36 AM CDT 03/29/2025 4:10 AM CDT Rico Galvan MD CHEMISTRY ORDERABLES Final R esult [facility] # [id number] [facility] [address] [place] [address] * (ABNORMAL) COMPREHENSIVE METABOLIC PANEL (03/29/2025 3:36 AM CDT) Pathologist [facility] Emergency Department SODIUM 141 136 - 145 mmol/L 03/29/2025 4:47 AM CDT [facility] POTASSIUM 3.3(L) 3.5 - 5.1 mmol/L 03/29/2025 4:47 AM T [facility] CHLORIDE 107 98 - 107 mmol/L 03/29/2025 4:47 AM T [facility] CO2 23 22 - 29 mmol/L 03/29/2025 4:47 AM T [facility] CALCIUM 9.6 8.8 - 10.2 mg/dL 03/29/2025 4:47 AM T [facility] BUN 9 8 - 23 mg/dL 03/29/2025 4:47 AM T [facility] CREATININE 0.62 0.51 - 0.95 mg/dL 03/29/2025 4:47 AM T [facility] Comment:The GFR result is no t clinically significant on patients <18 or >70 years of age. GLUCOSE 113(H) 74 - 99 mg/dL 03/29/2025 4:47 AM T [facility] TOTAL PROTEIN 5.4(L) 6.4 - 8.3 g/dL 03/29/2025 4:47 AM [facility] ALBUMIN 2.9(L) 3.5 - 5.2 g/dL 03/29/2025 4:47 AM T [facility] BILIRUBIN TOTAL 0.3 0.0 - 1.0 mg/dL 03/29/2025 4:47 AM CDT [facility] ALKALINE PHOSPHATASE 124(H) 35 - 104 U/L 03/29/2025 4:47 AM CDT [facility] AST 14 10 - 35 U/L 03/29/2025 4:47 AM CDT [facility] ALT 26 <=35 U/L 03/29/2025 4:47 AM T [facility] GFR >60 mL/min/1.7 3 sq meter 03/29/2025 4:47 AM T [facility] Comment:eGFR calculated with 2020 CKD-EPI equation. Vegetarian diet, extremely high or low muscle mass, and may affect results. Cystatin C with Glomerular Filtration Rate is a suitable alternative for these patients. ANION GAP 11 9 - 20 mmol/L 03/29/2025 4:47 AM [facility] Blood Venipuncture / Unknown 03/29/2025 3:36 AM CDT 03/29/2025 4:10 AM CDT us Rico Galvan MD CHEMISTRY ORDERABLES Final R esult [facility] CLIA # [id number] [address] [place] [address] [phone] * (ABNORMAL) CBC WITH DIFFERENTIAL (03/29/2025 3:36 AM CDT) Pathologist [facility] Emergency Department WBC 10.4 4.8 - 10.8 K/uL 03/29/2025 4:13 AM CDT [facility] RBC 3.10(L) 4.20 - 5.40 M/uL 03/29/2025 4:13 AM CDT [facility] HEMOGLOBIN 9.6(L) 12.0 - 16.0 g/dL 03/29/2025 4:13 AM CDT [facility] HEMATOCRIT 30.5(L) 36.0 - 46.0 % 03/29/2025 4:13 AM [facility] MCV 98.4 84.0 - 103.0 fL 03/29/2025 4:13 AM [facility] MCH 31.0 27.0 - 34.0 pg 03/29/2025 4:13 AM [facility] MCHC 31.5 30.0 - 35.0 g/dL 03/29/2025 4:13 AM [facility] PLATELETS 497(H) 140 - 440 K/uL 03/29/2025 4:13 AM [facility] MPV 10.4 8.9 - 12.8 fL 03/29/2025 4:13 AM [facility] RDW 14.0 11.0 - 14.5 % 03/29/2025 4:13 AM [facility] RDW-STDEV 50.3 37.0 - 54.0 fL 03/29/2025 4:13 AM [facility] NEUTROPHILS 79(H) 42 - 75 % 03/29/2025 4:13 AM [facility] LYMPHOCYTES 13(L) 24 - 44 % 03/29/2025 4:13 AM [facility] MONOCYTES 7 2 - 10 % 03/29/2025 4:13 AM [facility] EOSINOPHILS 0 0 - 7 % 03/29/2025 4:13 AM [facility] BASOPHILS 0 0 - 1 % 03/29/2025 4:13 AM [facility] IMMATURE GRANULOCYTES 0 0 - 2 % 03/29/2025 4:13 AM [facility] NEUTROPHIL ABSOLUTE 8.22(H) 2.00 - 8.00 K/uL 03/29/2025 4:13 AM [facility] LYMPHOCYTE ABSOLUTE 1.39 1.20 - 4.00 K/uL 03/29/2025 4:13 AM [facility] MONOCYTE ABSOLUTE 0.69(H) 0.10 - 0.60 K/uL 03/29/2025 4:13 AM CDT [facility] EOSINOPHIL ABSOLUTE 0.01 0.00 - 0.70 K/uL 03/29/2025 4:13 AM CDT [facility] BASOPHILS ABSOLUTE 0.01 0.00 - 0.20 K/uL 03/29/2025 4:13 AM CDT [facility] IMMATURE GRANULOCYTES ABSOLUTE 0.04 0.00 - 0.10 K/uL 03/29/2025 4:13 AM CDT [facility] SMEAR REVIEWED: NA - Not Applicable 03/29/2025 4:13 AM CDT [facility] Blood Venipuncture / Unknown 03/29/2025 3:36 AM CDT 03/29/2025 4:06 AM CDT us Rico Galvan MD HEMATOLOGY ORDERABLES Final Result [facility] CLIA # [id number] [address] [place] [id number] * CT GUIDE PERCUT DRAIN W CATH [...] along the planned trajectory. Next, a 5 [place] Yueh needle/catheter combination was advanced using CT fluoroscopy as a guide to the target pelvic abscess and the needle was removed with the catheter remaining in place. Next, through the 5 [place]an catheter a 035 wire was advanced into the targeted fluid collection. Over the wire 5 Venezuelan catheter was removed and a 10 Fr [...] along the planned trajectory. Next, a 5 [place] Yueh needle/catheter combination was advanced using CT fluoroscopy as a guide to the target pelvic abscess and the needle was removed with the catheter remaining in place. Next, through the 5 [place]an catheter a 035 wire was advanced into the targeted fluid collection. Over the wire 5 Venezuelan catheter was removed and a 10 Fr [...] GRAM STAIN (03/28/2025 2:03 PM CDT) Pathologist [facility] Emergency Department CULTURE 3 to 4+ or numerous Mixed enteric caitie(A) 03/31/2025 8:25 AM CDT [facility] GRAM STAIN No Polymorphonuclear WBC 03/31/2025 8:25 AM CDT [facility] GRAM STAIN Mixed caitie with no predominate morphology 03/31/2025 8:25 AM CDT [facility] Abscess ENTIRE PELVIS / Unknown Collection / Unknown 03/28/2025 2:03 PM CDT 03/28/2025 2:32 PM CDT Jas Gerard MD MICROBIOLOGY - GENERAL ORDERABLE S Final Result [facility] CLIA # [id number] [address] [place] [address] [place], [place] [address] * (ABNORMAL) BASIC METABOLIC PANEL (03/28/2025 5:12 AM CDT) SODIUM 141 136 - 145 mmol/L 03/28/2025 6:48 AM CDT [facility] POTASSIUM 3.6 3.5 - 5.1 mmol/L 03/28/2025 6:48 AM T [facility] CHLORIDE 111(H) 98 - 107 mmol/L 03/28/2025 6:48 AM T [facility] CO2 22 22 - 29 mmol/L 03/28/2025 6:48 AM CDT [facility] CALCIUM 9.2 8.8 - 10.2 mg/dL 03/28/2025 6:48 AM T [facility] BUN 7(L) 8 - 23 mg/dL 03/28/2025 6:48 AM T [facility] CREATININE 0.62 0.51 - 0.95 mg/dL 03/28/2025 6:48 AM T [facility] Comment:The GFR result is no t clinically significant on patients <18 or >70 years of age. GLUCOSE 95 74 - 99 mg/dL 03/28/2025 6:48 AM T [facility] GFR >60 mL/min/1.7 3 sq meter 03/28/2025 6:48 AM T [facility] Comment:eGFR calculated with 2020 CKD-EPI equation. Vegetarian diet, extremely high or low muscle mass, and may affect results. Cystatin C with Glomerular Filtration Rate is a suitable alternative for these patients. ANION GAP 8(L) 9 - 20 mmol/L 03/28/2025 6:48 AM T [facility] Blood Venipuncture / Unknown 03/28/2025 5:12 AM CDT 03/28/2025 6:13 AM CDT us Driss Dahl MD CHEMISTRY ORDERABLES Final R esult [facility] CLIA # [id number] [address] [place] [address] [phone] * (ABNORMAL) CBC WITHOUT DIFFERENTIAL (03/28/2025 5:12 AM CDT) WBC 8.4 4.8 - 10.8 K/uL 03/28/2025 6:19 AM CDT [facility] RBC 2.77(L) 4.20 - 5.40 M/uL 03/28/2025 6:19 AM CDT [facility] HEMOGLOBIN 8.4(L) 12.0 - 16.0 g/dL 03/28/2025 6:19 AM CDT [facility] HEMATOCRIT 27.2(L) 36.0 - 46.0 % 03/28/2025 6:19 AM CDT [facility] MCV 98.2 84.0 - 103.0 fL 03/28/2025 6:19 AM CDT [facility] MCH 30.3 27.0 - 34.0 pg 03/28/2025 6:19 AM CDT [facility] MCHC 30.9 30.0 - 35.0 g/dL 03/28/2025 6:19 AM CDT [facility] PLATELETS 385 140 - 440 K/uL 03/28/2025 6:19 AM CDT [facility] MPV 10.7 8.9 - 12.8 fL 03/28/2025 6:19 AM CDT [facility] RDW 14.2 11.0 - 14.5 % 03/28/2025 6:19 AM T [facility] RDW-STDEV 51.3 37.0 - 54.0 fL 03/28/2025 6:19 AM T [facility] Blood Venipuncture / Unknown 03/28/2025 5:12 AM CDT 03/28/2025 6:14 AM CDT us Driss Dahl MD HEMATOLOGY ORDERABLES Final Result [facility] CLIA # [id number] [address] [address] [place] [address] * EKG 12-LEAD (03/28/2025 4:40 AM CDT) 03/28/2025 4:40 AM CDT Narrative INTERFACE SYSTEM - 03/30/2025 6:29 PM CDT [address] [address] Test Date: 2025-03-28 Pat Name: JAVIER ROCKLAKE Department: 12 Room: [facility] 02 Gender: Female 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 Department: 12 Room: [facility] 02 Gender: Female Nozzle Worker: [id number] : 1940 Requested By: Order Number: [id number] Reading MD: Sen Tanner Measurements Intervals Mcdowell Rate: 70 P: 67 [place]: 154 QRS: -35 QRSD: 90 T: 14 QT: 406 QTc: 438 Interpretive Statements Normal sinus rhythm Left axis deviation Abnormal ECG Electronically Signed On 03-30-2025 18:29:13 CDT by Sen Tanner us Driss Dahl MD ECG ORDERABLES Final Result INTERFACE SYSTEM Refer to clinic/hospital department * (ABNORMAL) URINE CULTURE (03/28/2025 12:06 AM CDT) CULTURE NAKASEOMYCES GLABRATUS(A) LORA MCG/ML 04/03/2025 3:33 PM CDT [facility] Comment: Sent to the [facility] [place] See separate or scanned report. Urine URINE SPECIMEN OBTAINED BY CLEAN CATCH PROCEDURE / Unknown Collection / Unknown 03/28/2025 12:06 AM CDT 03/28/2025 12:12 AM CDT Narrative [facility] [employer] [facility] - 04/03/2025 3:33 PM CDT See scan for results from reference laboratory. Driss Dahl MD MICROBIOLOGY - GENERAL ORDER [place] Final Result Performing Organization Address City/[facility]/ZIP Co de Phone Number [facility] CLIA # [id number] [address] [address] [place], [place] [address] * EXTRA TUBE (URINE PRINCE) (03/28/2025 12:06 AM CDT) Urine URINE SPECIMEN OBTAINED BY CLEAN CATCH PROCEDURE / Unknown Collection / Unknown 03/28/2025 12:06 AM CDT 03/28/2025 12:12 AM CDT Driss Dahl MD URINE ORDERABLES Final Resul t Performing Organization Address [facility] Co de Phone Number [facility] CLIA # [id number] [address] [id number] * (ABNORMAL) URINALYSIS WITH REFLEX MICROSCOPIC (03/28/2025 12:06 AM CDT) COLOR UA Yellow Pale to Dark Yellow 03/28/2025 12:27 AM CDT [facility] CLARITY UA Clear Clear 03/28/2025 12:27 AM CDT [facility] SPECIFIC GRAVITY UA 1.025 1.003 - 1.035 03/28/2025 12:27 AM CDT [facility] PH UA 5.5 5.0 - 8.0 03/28/2025 12:27 AM CDT [facility] LEUKOCYTE ESTERASE UA Negative Negative 03/28/2025 12:27 AM T [facility] NITRITE UA Negative Negative 03/28/2025 12:27 AM [facility] PROTEIN UA 1+(A) Negative 03/28/2025 12:27 AM T [facility] GLUCOSE UA Negative Negative 03/28/2025 12:27 AM [facility] KETONES UA Trace(A) Negative 03/28/2025 12:27 AM [facility] UROBILINOGEN UA 0.2 <2.0 mg/dL 12:27 AM T [facility] BILIRUBIN UA Negative Negative 03/28/2025 12:27 AM [facility] BLOOD UA 2+(A) Negative 03/28/2025 12:27 AM [facility] WBC UA 0-2 0 - 2 /hpf 03/28/2025 12:27 AM [facility] RBC UA 51-100(A) 0 - 2 /hpf 03/28/2025 12:27 AM [facility] BACTERIA UA 3+(A) Negative /hpf 03/28/2025 12:27 AM [facility] EPITHELIAL CELLS, URINE 0-5 0 - 5 /hpf 03/28/2025 12:27 AM [facility] HYALINE CAST 11-25(A) None Seen, 0-2 /lpf 03/28/2025 12:27 AM [facility] YEAST, BUDDING Present(A) Absent 03/28/2025 12:27 AM [facility] Urine URINE SPECIMEN OBTAINED BY CLEAN CATCH PROCEDURE / Unknown Collection / Unknown 03/28/2025 12:06 AM CDT 03/28/2025 12:12 AM [facility] us Driss Dahl MD URINE ORDERABLES Final Resul t [facility] CLIA # [id number] [facility] [address] [place] [address] * (ABNORMAL) FERRITIN (03/27/2025 8:24 PM CDT) FERRITIN 541.8(H) 13.0 - 150.0 ng/mL 03/28/2025 12:40 AM CDT [facility] Blood Venipuncture / Unknown 03/27/2025 8:24 PM CDT 03/27/2025 8:44 PM CDT Driss Dahl MD CHEMISTRY ORDERABLES Final R esult [facility] CLIA # [id number] [address] [place] [id number] * (ABNORMAL) IRON, TIBC, AND PERCENT SATURATION (03/27/2025 8:24 PM CDT) [facility] IRON 42 37 - 145 ug/dL 03/28/2025 12:42 AM CDT [facility] TIBC 144(L) 250 - 450 ug/dL 03/28/2025 12:42 AM CDT [facility] IRON % SATURATION 29 15 - 60 % 03/28/2025 12:42 AM CDT [facility] Blood Venipuncture / Unknown 03/27/2025 8:24 PM CDT 03/27/2025 8:44 PM CDT us Driss Dahl MD CHEMISTRY ORDERABLES Final R esult [facility] CLIA # [id number] [address] [place] [address] * (ABNORMAL) COMPREHENSIVE METABOLIC PANEL (03/27/2025 8:24 PM CDT) SODIUM 140 136 - 145 mmol/L 03/27/2025 9:16 PM [facility] POTASSIUM 3.9 3.5 - 5.1 mmol/L 03/27/2025 9:16 PM [facility] CHLORIDE 109(H) 98 - 107 mmol/L 03/27/2025 9:16 PM [facility] CO2 22 22 - 29 mmol/L 03/27/2025 9:16 PM [facility] CALCIUM 9.5 8.8 - 10.2 mg/dL 03/27/2025 9:16 PM [facility] BUN 8 8 - 23 mg/dL 03/27/2025 9:16 PM [facility] CREATININE 0.70 0.51 - 0.95 mg/dL 03/27/2025 9:16 PM [facility] Comment:The GFR result is no t clinically significant on patients <18 or >70 years of age. GLUCOSE 147(H) 74 - 99 mg/dL 03/27/2025 9:16 PM [facility] TOTAL PROTEIN 5.5(L) 6.4 - 8.3 g/dL 03/27/2025 9:16 PM [facility] ALBUMIN 3.2(L) 3.5 - 5.2 g/dL 03/27/2025 9:16 PM [facility] BILIRUBIN TOTAL 0.5 0.0 - 1.0 mg/dL 03/27/2025 9:16 PM [facility] ALKALINE PHOSPHATASE 118(H) 35 - 104 U/L 03/27/2025 9:16 PM [facility] AST 14 10 - 35 U/L 03/27/2025 9:16 PM [facility] ALT 25 <=35 U/L 03/27/2025 9:16 PM [facility] GFR >60 mL/min/1.7 3 sq meter 03/27/2025 9:16 PM [facility] Comment:eGFR calculated with 2020 CKD-EPI equation. Vegetarian diet, extremely high or low muscle mass, and may affect results. Cystatin C with Glomerular Filtration Rate is a suitable alternative for these patients. ANION GAP 9 9 - 20 mmol/L 03/27/2025 9:16 PM CDT [facility] Blood Venipuncture / Unknown 03/27/2025 8:24 PM CDT 03/27/2025 8:44 PM CDT Driss Dahl MD CHEMISTRY ORDERABLES Final R esult Performing Organization Address [facility] Co de Phone Number [facility] CLIA # [id number] [address] * PROTIME-INR (03/27/2025 8:24 PM CDT) PROTIME 14.7 12.7 - 14.9 Seconds 03/27/2025 8:51 PM CDT [facility] [employer] [facility] INR 1.1 0.8 - 1.2 03/27/2025 8:51 PM CDT [facility] Blood Venipuncture / Unknown 03/27/2025 8:24 PM CDT 03/27/2025 8:39 PM CDT Narrative [facility] - 03/27/2025 8:51 PM CDT Expected Values for INR: DVT/PE Goal INR 2.5; range 2.0 - 3.0 Valve Replacement Tissue Goal INR 2.5; range 2.0 - 3.0 Valve Replacement Mechanical Goal INR 3.0; range 2.5 - 3.5 POST-AR Goal INR 2.5; range 2.0 - 3.0 or Goal INR 3.0; range 2.5 - 3.5 Atrial Fibrillation Goal INR 2.5; range 2.0 - 3.0 Ischemic Stroke Goal INR 2.5; range 2.0 - 3.0 Driss Dahl MD HEMATOLOGY ORDERABLES Final Result Performing Organization Address [facility]/ZIP Co de Phone Number [facility] [employer] [facility] CLIA # [id number] [address] [place] [address] [place] [address] * (ABNORMAL) CBC WITH DIFFERENTIAL (03/27/2025 8:24 PM CDT) [facility] WBC 7.3 4.8 - 10.8 K/uL 03/27/2025 8:48 PM CDT [facility] RBC 2.79(L) 4.20 - 5.40 M/uL 03/27/2025 8:48 PM CDT [facility] HEMOGLOBIN 8.5(L) 12.0 - 16.0 g/dL 03/27/2025 8:48 PM CDT [facility] HEMATOCRIT 27.6(L) 36.0 - 46.0 % 03/27/2025 8:48 PM CDT [facility] MCV 98.9 84.0 - 103.0 fL 03/27/2025 8:48 PM CDT [facility] MCH 30.5 27.0 - 34.0 pg 03/27/2025 8:48 PM CDT [facility] MCHC 30.8 30.0 - 35.0 g/dL 03/27/2025 8:48 PM CDT [facility] PLATELETS 373 140 - 440 K/uL 03/27/2025 8:48 PM CDT [facility] MPV 10.4 8.9 - 12.8 fL 03/27/2025 8:48 PM CDT [facility] RDW 14.3 11.0 - 14.5 % 03/27/2025 8:48 PM CDT [facility] RDW-STDEV 51.8 37.0 - 54.0 fL 03/27/2025 8:48 PM CDT [facility] NEUTROPHILS 90(H) 42 - 75 % 03/27/2025 8:48 PM CDT [facility] LYMPHOCYTES 9(L) 24 - 44 % 03/27/2025 8:48 PM CDT [facility] MONOCYTES 1(L) 2 - 10 % 03/27/2025 8:48 PM CDT [facility] EOSINOPHILS 0 0 - 7 % 03/27/2025 8:48 PM CDT [facility] BASOPHILS 0 0 - 1 % 03/27/2025 8:48 PM CDT [facility] IMMATURE GRANULOCYTES 1 0 - 2 % 03/27/2025 8:48 PM CDT [facility] NEUTROPHIL ABSOLUTE 6.49 2.00 - 8.00 K/uL 03/27/2025 8:48 PM CDT [facility] LYMPHOCYTE ABSOLUTE 0.63(L) 1.20 - 4.00 K/uL 03/27/2025 8:48 PM CDT [facility] MONOCYTE ABSOLUTE 0.07(L) 0.10 - 0.60 K/uL 03/27/2025 8:48 PM CDT [facility] EOSINOPHIL ABSOLUTE 0.00 0.00 - 0.70 K/uL 03/27/2025 8:48 PM CDT [facility] [facility] BASOPHILS ABSOLUTE 0.01 0.00 - 0.20 K/uL 03/27/2025 8:48 PM CDT [facility] IMMATURE GRANULOCYTES ABSOLUTE 0.05 0.00 - 0.10 K/uL 03/27/2025 8:48 PM CDT [facility] SMEAR REVIEWED: NA - Not Applicable 03/27/2025 8:48 PM CDT [facility] Blood Venipuncture / Unknown 03/27/2025 8:24 PM CDT 03/27/2025 8:40 PM CDT us Driss Dahl MD HEMATOLOGY ORDERABLES Final Result [facility] CLIA # [id number] [address] [place] [address] [place] [address] * TYPE AND SCREEN (03/27/2025 8:21 PM CDT) ABO GROUP B 03/27/2025 9:56 PM CDT [facility] RH (D) TYPE Positive 03/27/2025 9:56 PM CDT [facility] [place] ANTIBODY SCREEN Negative 03/27/2025 9:56 PM CDT [facility] [place] Blood Venipuncture / Unknown 03/27/2025 8:21 PM CDT 03/27/2025 8:39 PM CDT Driss Dahl MD BLOOD BANK ORDERABLES Edited Result - Final [facility] [place] CLIA#[id number] [facility] [place] [address], * XR CHEST PA OR AP 1 [...]
[2025-04-06 16:26] VITALS: BP 133/66; PULSE 104; RESP 16; TEMP 36.9; O2SAT 98
--- OUTSIDE RECORDS SUMMARY | 2025-04-06 16:29 | XMS_ITS | Encounter Summary ---
Author Organization [facility] Address [address] [place] [address] Care Team Providers Care Clarifying Plant Operator Name Role Phone Unavailable Primary Care Provider Unavailabl e Encounter Details Date Type Department Care Team (Late st Contact Info) Description 04/03/2025 Orders Only [facility] [address] [place] [address] Provider, Abstract NO ADDRESS ON [...] Description 04/10/2025 9:15 AM CDT Office Visit [facility] Gen Spec [place] [address] [place] [phone] Tucker Marroquin MD [facility] [address] [phone] documented as of this encounter Procedures Procedure [...]
--- OUTSIDE RECORDS SUMMARY | 2025-04-06 16:29 | XMS_ITS | Encounter Summary ---
Author Organization [facility] Address [address] [place] [address] Care Team Providers Care Chipping Machine Operator Name Role Phone Unavailable Primary Care Provider Unavailabl e Encounter Details Date Type Department Care Team (Late st Contact Info) Description 03/31/2025 External Device Data [...] Description 04/10/2025 9:15 AM CDT Office Visit [facility] [place] [address] [place] [address] Tucker Marroquin MD [address] [place] [phone] documented as of this encounter Visit Diagnoses Not on filedocumented in this encounter
--- OUTSIDE RECORDS SUMMARY | 2025-04-06 16:29 | XMS_ITS | Patient Health Record ---
Author Organization [facility] Address [address] [place], [place] [id number] Care Team Providers Care Bank Officer Name Role Phone Sudheer Canchola DO Primary Care Provider Unavaildajuan Montes De Oca MD, Aneesh Unavailable [phone] Ozzie STEEN, Jas Unavailable Unavailable Trisha Miles Unavailable [phone] Allergies No Known Allergies Results Component Value [...] W/U Status Risk Notes Problem Solitary sacroiliitis (623596861) Sacroiliitis, not elsewhere classified (M46.1) Active confirmed Problem Lumbosacral spondylosis without myelopathy (84605727) Spondylosis without myelopathy or radiculopathy, lumbar region (M47.816) Active confirmed Problem High risk drug monitoring status (520752416) 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 (current) use of opiate analgesic (Z79.891) Active confirmed Problem Sleep disorder (47660691) Other sleep disorders (G47.8) Active confirmed Problem Chronic pain (19875085) Other chronic pain (G89.29) Active confirmed Problem Disorder of lumbar disc (588503061) Other intervertebral disc disorders, 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) Active confirmed Problem Radiculopathy (26042709) Radiculopathy, site unspecified (M54.10) Active confirmed Problem Post-laminectomy syndrome (14663424) Postlaminectomy syndrome, not elsewhere classified (M96.1) Active confirmed Problem Long-term current use of drug therapy (509776400) 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.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) Active confirmed Problem Vertebrogenic low back pain (584686601708632 101) 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 Vital Signs Temperature 93.8 degrees Fahrenheit 02/18/2025 Oximetry 98 % 02/18/2025 Blood pressure diastolic 73 mm Hg 12/24/2024 Height 60 in 02/18/2025 Blood pressure systolic 150 mm Hg 12/24/2024 Weight 148.6 lbs 12/24/2024 BMI 29.02 kg/m2 12/24/2024 Encounters Encounter Location Date Provider Diagnosis [facility] [address] [place], [place] [id number] 08/11/2024 Trisha Sneed Vertebrogenic low ba ck pain M54.51 ; Spondylosis without myelopathy or radiculopathy, lumbar region M47.816 ; Sacroiliitis, not elsewhere classified M46.1 ; Other intervertebral disc disorders, lumbar region M51.86 ; Postlaminectomy syndrome, not elsewhere classified M96.1 ; Other sleep disorders G47.8 and 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 (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 therapy Z79.899 [facility] [address] [place], [place] [phone] 08/20/2024 Aneesh Montes De Oca Vertebrogenic low ba ck pain M54.51 ; Postlaminectomy syndrome, not elsewhere classified M96.1 ; Other sleep disorders G47.8 and Other senior care (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 therapy Z79.[address] [facility] [address] [id number] 09/03/2024 Aneesh Montes De Oca Vertebrogenic low ba ck pain M54.51 ; Other chronic pain G89.29 ; Postlaminectomy syndrome, not elsewhere classified M96.1 ; Other sleep disorders G47.8 and Other senior care (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 therapy Z79.899 [facility] [address] [place] [phone] 10/29/2024 Aneesh Montes De Oca Vertebrogenic low ba ck pain M54.51 ; Other chronic pain G89.29 ; Postlaminectomy syndrome, not elsewhere classified M96.1 and Other sleep disorders G47.8 [facility] [address] [place] [id number] 12/24/2024 Aneesh Montes De Oca Vertebrogenic low ba ck pain M54.51 ; Other chronic pain G89.29 ; Postlaminectomy syndrome, not elsewhere classified M96.1 and Other sleep disorders G47.8 [facility] [address] [place], [place] [phone] 02/18/2025 Aneesh Montes De Oca Vertebrogenic low [...] to obtain 2023 MRI LSP report from [facility]. Consider treatment options pending review of imaging [...] spine pain status post prior lumbar surgery. 09/03/2024 Other chronic pain (ICD-10 - G89.29) [...] L4-5 as described in the report. 08/11/2024 Sacroiliitis, not elsewhere classified (ICD-10 - M46.1) Consider interventional treatment pending evaluation by Dr. Montes De Oca. 08/20/2024 Other sleep disorders (ICD-10 - G47.8) Consider completion of a sleep study. 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 Patient has been counseled on the [...] L4-5 as described in the report. 09/03/2024 Postlaminectomy syndrome, not elsewhere classified (ICD-10 - M96.1) Consider SCS trial for patient's postlaminectomy syndrome and significant spinal stenosis. Verbal and written information provided patient on 08/20/24. 02/18/2025 Other sleep disorders (ICD-10 - G47.8) Plan to restrict opioid usage in relation to sleep for safety concerns. 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 Plan to continue oral opioid medication management. 10/29/2024 Postlaminectomy syndrome, not elsewhere classified (ICD-10 - M96.1) Consider SCS trial for patient's postlaminectomy syndrome and significant spinal stenosis. Verbal and written information provided patient on 08/20/24. Patient has deferred on this treatment option thus far. 10/29/2024 Other sleep disorders (ICD-10 - G47.8) Consider a sleep study. Plan to restrict opioid usage in relation to sleep for safety concerns. 08/11/2024 Other intervertebral disc disorders, lumbar region (ICD-10 - M51.86) Consider interventional treatment pending evaluation by Dr. Montes De Oca. 12/24/2024 Postlaminectomy syndrome, not elsewhere classified (ICD-10 - M96.1) Consider SCS trial for patient's postlaminectomy syndrome and significant spinal stenosis. Verbal and written information provided patient on 08/20/24. Patient has deferred on this treatment option thus far. 09/03/2024 Other sleep disorders (ICD-10 - G47.8) Consider completion of a sleep study. 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 09/03/2024 Other senior care (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 therapy (ICD-10 - Z79.899) Patient [...] relation to sleep for safety concerns. 08/11/2024 Postlaminectomy syndrome, not elsewhere classified (ICD-10 - M96.1) Plan to obtain Operative Note from [facility]. Consider interventional treatment pending evaluation by Dr. Montes De Oca. 08/11/2024 Other sleep disorders (ICD-10 - G47.8) Consider completion of a sleep study. 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 Patient was provided with a letter at today's visit informing patient that this clinic is closing due to Dr. Montes De Oca's intermediate; see scanned document. Terminal prescriptions were given [...] Medicare Part B Claims Department [address] [address] [place] [address] [id number] Gita Stubbs Self - patient is the insured [employer] [address] [place] [phone] [id number] Gita Stubbs Self - patient is the [...] and restless legs (and some hypersomnia - [place] score = 6) Surgical History Surgery Date(Month/Year) Left carpal tunnel release at [facility], 1970s Knee replacement, left, performed in [facility] 2016 Knee replacement, right, performed in [place], [place]2016 Bilateral L3-L4 laminotomies / facetectomies, performed at [facility] by Dr. Brooke, 03/16/14 Right carpal tunnel release at [facility] by Tejas Burkett, 2022 Hospitalization History Reason Date(Month/Year) Confusion and UTI, treated [facility], 05/13/24
--- OUTSIDE RECORDS SUMMARY | 2025-04-06 16:29 | XMS_ITS | Encounter Summary ---
Author Organization [facility] Address [address] [place] [address] Care Team Providers Care Lombardi Developer Name Role Phone Unavailable Primary Care Provider [...] Description 04/10/2025 9:15 AM CDT Office Visit [facility] [place] [address] [place] [address] Tucker Marroquin MD [address] [place] [phone] documented as of this encounter Visit Diagnoses Not on filedocumented in this encounter
--- OUTSIDE RECORDS SUMMARY | 2025-04-06 16:29 | XMS_ITS | Clinical Summary ---
Author Organization [facility] Address [address] [place] [address] Care Team Providers Care Decal Decorator Name Role Phone Unavailable Primary Care Provider [...] daily. 5 Active naloxone (NARCAN) 4 mg/spray [place], Non-Aerosol EMERGENCY USE ONLY: Administer 1 spray [...] Encounters Date Type Department Care Team Description 04/06/2025 Telephone [facility] Gen Spec Surg [place] [address] [place] [phone] Tucker Marroquin MD OTHER 04/03/2025 Orders Only [facility] HIM [address] [place] [id number] Provider, Abstract 03/31/2025 External Device Data ST[place] ABSTRACTION Provider, Abstract 03/31/2025 External Device Data [place] ABSTRACTION Provider, Abstract 03/31/2025 External Device Data [place] ABSTRACTION Provider, Abstract 03/27/2025 6:59 PM CDT - 04/03/2025 12:02 AM CDT Hospital Encounter [facility] 3D Medical Telemetry [address] [place] [phone] Garth Azar MD Sundaram, Vignesh, MD Chinna, Jagdeep S, MD Sigmoid diverticulitis Discharge Disposition: Half-Way Fac(SNF) with Medicare Certification in Anticipation of [...] Description 04/10/2025 9:15 AM CDT Office Visit [facility] Gen Spec Surg [address] [place] [address] Tucker Marroquin MD [address] [facility] [address] [place] [address] Health Maintenance Due Date Last Done Comments [...] of3 resultswithin the time period is included. [facility] WBC 13.3(H) 4.8 - 10.8 K/uL 04/02/2025 6:23 AM CDT [facility] RBC 2.95(L) 4.20 - 5.40 M/uL 04/02/2025 [...] 2 - 10 % 04/02/2025 6:23 AM [facility] EOSINOPHILS 0 0 - 7 % 04/02/2025 6:23 AM [facility] BASOPHILS 0 0 - 1 % 04/02/2025 6:23 AM [facility] IMMATURE GRANULOCYTES 1 0 - 2 % 04/02/2025 6:23 AM [facility] NEUTROPHIL ABSOLUTE 11.06(H) 2.00 - 8.00 K/uL 04/02/2025 6:23 AM CDT [facility] LYMPHOCYTE ABSOLUTE 1.43 1.20 - 4.00 K/uL 04/02/2025 6:23 AM CDT [facility] MONOCYTE ABSOLUTE 0.72(H) 0.10 - 0.60 K/uL 04/02/2025 6:23 AM CDT [facility] EOSINOPHIL ABSOLUTE 0.01 0.00 - 0.70 K/uL 04/02/2025 6:23 AM CDT [facility] BASOPHILS ABSOLUTE 0.01 0.00 - 0.20 K/uL 04/02/2025 6:23 AM CDT [facility] IMMATURE GRANULOCYTES ABSOLUTE 0.07 0.00 - 0.10 K/uL 04/02/2025 6:23 AM T [facility] SMEAR REVIEWED: NA - Not Applicable 04/02/2025 6:23 AM [facility] Blood Venipuncture / Unknown 04/02/2025 6:08 AM CDT 04/02/2025 6:16 AM CDT Rico Galvan MD HEMATOLOGY ORDERABLES Final Result [facility] CLIA # [id number] [address] [place] [address] [phone] * (ABNORMAL) COMPREHENSIVE METABOLIC PANEL (04/02/2025 6:08 AM CDT) Only the most recent of9 resultswithin the time period is included. SODIUM 140 136 - 145 mmol/L 04/02/2025 6:54 AM T [facility] POTASSIUM 4.0 3.5 - 5.1 mmol/L 04/02/2025 6:54 AM CDT [facility] CHLORIDE 109(H) 98 - 107 mmol/L 04/02/2025 6:54 AM T [facility] CO2 23 22 - 29 mmol/L 04/02/2025 6:54 AM [facility] CALCIUM 10.0 8.8 - 10.2 mg/dL 04/02/2025 6:54 AM [facility] BUN 9 8 - 23 mg/dL 04/02/2025 6:54 AM [facility] CREATININE 0.65 0.51 - 0.95 mg/dL 04/02/2025 6:54 AM [facility] Comment:The GFR result is no t clinically significant on patients <18 or >70 years of age. GLUCOSE 82 74 - 99 mg/dL 04/02/2025 6:54 AM [facility] TOTAL PROTEIN 5.2(L) 6.4 - 8.3 g/dL 04/02/2025 6:54 AM [facility] ALBUMIN 2.7(L) 3.5 - 5.2 g/dL 04/02/2025 6:54 AM [facility] BILIRUBIN TOTAL 0.5 0.0 - 1.0 mg/dL 04/02/2025 6:54 AM [facility] ALKALINE PHOSPHATASE 160(H) 35 - 104 U/L 04/02/2025 6:54 AM [facility] AST 14 10 - 35 U/L 04/02/2025 6:54 AM [facility] ALT 19 <=35 U/L 04/02/2025 6:54 AM [facility] GFR >60 mL/min/1.7 3 sq meter 04/02/2025 6:54 AM [facility] Comment:eGFR calculated with 2020 CKD-EPI equation. Vegetarian diet, extremely high or low muscle mass, and may affect results. Cystatin C with Glomerular Filtration Rate is a suitable alternative for these patients. ANION GAP 8(L) 9 - 20 mmol/L 04/02/2025 6:54 AM [facility] Blood Venipuncture / Unknown 04/02/2025 6:08 AM CDT 04/02/2025 6:17 AM T us Rico S Cole MD CHEMISTRY ORDERABLES Final R esult [facility] [employer] [facility] CLIA # [id number] [id number] [place] [address] * XR PELVIS 1 OR 2 VW [...] - 2.4 mg/dL 03/29/2025 4:47 AM CDT [facility] [employer] [facility] Blood Venipuncture / Unknown 03/29/2025 3:36 AM CDT 03/29/2025 4:10 AM CDT us Rico Galvan MD CHEMISTRY ORDERABLES Final R esult [facility] SUKUMAR # [id number] [address] [place], [place] [address] [place] [address] * CT GUIDE PERCUT DRAIN W CATH [...] along the planned trajectory. Next, a 5 Montserratian Yueh needle/catheter combination was advanced using CT fluoroscopy as a guide to the target pelvic abscess and the needle was removed with the catheter remaining in place. Next, through the 5 Montserratian catheter a 035 wire was advanced into the targeted fluid collection. Over the wire 5 Montserratian catheter was removed and a 10 Fr [...] along the planned trajectory. Next, a 5 Montserratian Yueh needle/catheter combination was advanced using CT fluoroscopy as a guide to the target pelvic abscess and the needle was removed with the catheter remaining in place. Next, through the 5 Montserratian catheter a 035 wire was advanced into the targeted fluid collection. Over the wire 5 Montserratian catheter was removed and a 10 Fr [...] GRAM STAIN (03/28/2025 2:03 PM CDT) Pathologist [facility] CULTURE 3 to 4+ or numerous Mixed enteric caitie(A) 03/31/2025 8:25 AM CDT [facility] GRAM STAIN No Polymorphonuclear WBC 03/31/2025 8:25 AM CDT [facility] GRAM STAIN Mixed caitie with no predominate morphology 03/31/2025 8:25 AM CDT [facility] Abscess ENTIRE PELVIS / Unknown Collection / Unknown 03/28/2025 2:03 PM CDT 03/28/2025 2:32 PM CDT Jas Gerard MD MICROBIOLOGY - GENERAL ORDERABLE S Final [id number] [address] [place] [address] * (ABNORMAL) CBC WITHOUT DIFFERENTIAL (03/28/2025 5:12 AM CDT) WBC 8.4 4.8 - 10.8 K/uL 03/28/2025 6:19 AM CDT [facility] RBC 2.77(L) 4.20 - 5.40 M/uL 03/28/2025 6:19 AM CDT [facility] HEMOGLOBIN 8.4(L) 12.0 - 16.0 g/dL 03/28/2025 6:19 AM CDT [facility] HEMATOCRIT 27.2(L) 36.0 - 46.0 % 03/28/2025 6:19 AM CDT [facility] MCV 98.2 84.0 - 103.0 fL 03/28/2025 6:19 AM CDT [facility] MCH 30.3 27.0 - 34.0 pg 03/28/2025 6:19 AM CDT [facility] MCHC 30.9 30.0 - 35.0 g/dL 03/28/2025 6:19 AM CDT [facility] PLATELETS 385 140 - 440 K/uL 03/28/2025 6:19 AM T [facility] MPV 10.7 8.9 - 12.8 fL 03/28/2025 6:19 AM T [facility] RDW 14.2 11.0 - 14.5 % 03/28/2025 6:19 AM T [facility] RDW-STDEV 51.3 37.0 - 54.0 fL 03/28/2025 6:19 AM T [facility] Blood Venipuncture / Unknown 03/28/2025 5:12 AM CDT 03/28/2025 6:14 AM CDT us Driss Dahl MD HEMATOLOGY ORDERABLES Final Result [facility] CLIA # [id number] [address] [place] [address] [phone] * (ABNORMAL) BASIC METABOLIC PANEL (03/28/2025 5:12 AM CDT) SODIUM 141 136 - 145 mmol/L 03/28/2025 6:48 AM T [facility] POTASSIUM 3.6 3.5 - 5.1 mmol/L 03/28/2025 6:48 AM T [facility] CHLORIDE 111(H) 98 - 107 mmol/L 03/28/2025 6:48 AM T [facility] CO2 22 22 - 29 mmol/L 03/28/2025 6:48 AM T [facility] CALCIUM 9.2 8.8 - 10.2 mg/dL 03/28/2025 6:48 AM T [facility] BUN 7(L) 8 - 23 mg/dL 03/28/2025 6:48 AM CDT [facility] CREATININE 0.62 0.51 - 0.95 mg/dL 03/28/2025 6:48 AM CDT [facility] Comment:The GFR result is no t clinically significant on patients <18 or >70 years of age. GLUCOSE 95 74 - 99 mg/dL 03/28/2025 6:48 AM CDT [facility] GFR >60 mL/min/1.7 3 sq meter 03/28/2025 6:48 AM CDT [facility] Comment:eGFR calculated with 2020 CKD-EPI equation. Vegetarian diet, extremely high or low muscle mass, and may affect results. Cystatin C with Glomerular Filtration Rate is a suitable alternative for these patients. ANION GAP 8(L) 9 - 20 mmol/L 03/28/2025 6:48 AM CDT [facility] Blood Venipuncture / Unknown 03/28/2025 5:12 AM CDT 03/28/2025 6:13 AM CDT Driss Dahl MD CHEMISTRY ORDERABLES Final R esult [facility] CLIA # [id number] [address] [place] [address] * EKG 12-LEAD (03/28/2025 4:40 AM CDT) 03/28/2025 4:40 AM CDT Narrative INTERFACE SYSTEM - 03/30/2025 6:29 PM CDT [address] [address] Test Date: 2025-03-28 Pat Name: JAVIER STUBBS Department: 12 Room: [facility] 02 Gender: Female Framing Specialist: [id number] : 1940 Requested By: Order Number: [id number] Shruthi MD: Sen Tanner Measurements Intervals Medon Rate: 70 P: 67 MO: 154 QRS: -35 QRSD: 90 T: 14 QT: 406 QTc: 438 Interpretive Statements Normal sinus rhythm Left axis deviation Abnormal ECG Electronically Signed On 03-30-2025 18:29:13 CDT by Sen Tanner Procedure Note Sen Tanner MD - 03/30/2025 [facility] [address] [place] [address] Test Date: 2025-03-28 Pat Name: JAVIER STUBBS Department: 12 Room: [address] [place] [address] Gender: Female Framing Specialist: [id number] : 1940 Requested By: Order Number: [id number] Reading MD: Sen Tanner Measurements Intervals Medon Rate: 70 P: 67 MO: 154 QRS: -35 QRSD: 90 T: 14 QT: 406 QTc: 438 Interpretive Statements Normal sinus rhythm Left axis deviation Abnormal ECG Electronically Signed On 03-30-2025 18:29:13 CDT by Sen Tanner us Driss Dahl MD ECG ORDERABLES Final Result Performing Organization Address City/[facility] de Phone Number INTERFACE SYSTEM Refer to clinic/hospital department * EXTRA TUBE (URINE PRINCE) (03/28/2025 12:06 AM CDT) Urine URINE SPECIMEN OBTAINED BY CLEAN CATCH PROCEDURE / Unknown Collection / Unknown 03/28/2025 12:06 AM CDT 03/28/2025 12:12 AM CDT Driss Dahl MD URINE ORDERABLES Final Resul t Performing Organization Address City/[facility] Co de Phone Number [facility] CLIA # [id number] [address] [facility] [place] [address] * (ABNORMAL) URINALYSIS WITH REFLEX MICROSCOPIC (03/28/2025 12:06 AM CDT) COLOR UA Yellow Pale to Dark Yellow 03/28/2025 12:27 AM CDT [facility] CLARITY UA Clear Clear 03/28/2025 12:27 AM CDT [facility] SPECIFIC GRAVITY UA 1.025 1.003 - 1.035 03/28/2025 12:27 AM [facility] PH UA 5.5 5.0 - 8.0 03/28/2025 12:27 AM [facility] LEUKOCYTE ESTERASE UA Negative Negative 03/28/2025 12:27 AM [facility] NITRITE UA Negative Negative 03/28/2025 12:27 AM [facility] PROTEIN UA 1+(A) Negative 03/28/2025 12:27 AM [facility] GLUCOSE UA Negative Negative 03/28/2025 12:27 AM [facility] KETONES UA Trace(A) Negative 03/28/2025 12:27 AM [facility] UROBILINOGEN UA 0.2 <2.0 mg/dL 12:27 AM [facility] BILIRUBIN UA Negative Negative 03/28/2025 12:27 [...] ORDERABLES Final Resul t Performing Organization Address [facility]/ZIP Co de Phone Number [facility] CLIA # [id number] [address] [place] [address] * (ABNORMAL) URINE CULTURE (03/28/2025 12:06 AM CDT) CULTURE NAKASEOMYCES GLABRATUS(A) LORA MCG/ML 04/03/2025 3:33 PM CDT [facility] Comment: Sent to the [facility], [place] See separate or scanned report. Urine URINE SPECIMEN OBTAINED BY CLEAN CATCH PROCEDURE / Unknown Collection / Unknown 03/28/2025 12:06 AM CDT 03/28/2025 12:12 AM CDT Narrative [facility] - 04/03/2025 3:33 PM CDT See scan for results from reference laboratory. Driss Dahl MD MICROBIOLOGY - GENERAL ORDER RAVEN Final Result Performing Organization Address [facility] Co de Phone Number [facility] CLIA # [id number] [address] [place] [address] * (ABNORMAL) IRON, TIBC, AND PERCENT SATURATION (03/27/2025 8:24 PM CDT) IRON 42 37 - 145 ug/dL 03/28/2025 12:42 AM CDT [facility] TIBC 144(L) 250 - 450 ug/dL 03/28/2025 12:42 AM CDT [facility] IRON % SATURATION 29 15 - 60 % 03/28/2025 12:42 AM CDT [facility] Blood Venipuncture / Unknown 03/27/2025 8:24 PM CDT 03/27/2025 8:44 PM CDT Driss Dahl MD CHEMISTRY ORDERABLES Final R esult Performing Organization Address City/[facility]/ZIP Co de Phone Number [facility] [employer] [facility] CLIA # [id number] [address] [address] * PROTIME-INR (03/27/2025 8:24 PM CDT) Pathologist [facility] PROTIME 14.7 12.7 - 14.9 Seconds 03/27/2025 8:51 PM CDT [facility] [employer] [facility] INR 1.1 0.8 - 1.2 03/27/2025 8:51 PM CDT [facility] [employer] [facility] Blood Venipuncture / Unknown 03/27/2025 8:24 PM CDT 03/27/2025 8:39 PM CDT Narrative [facility] [employer] [facility] - 03/27/2025 8:51 PM CDT Expected Values for INR: DVT/PE Goal INR 2.5; range 2.0 - 3.0 Valve Replacement Tissue Goal INR 2.5; range 2.0 - 3.0 Valve Replacement Mechanical Goal INR 3.0; range 2.5 - 3.5 POST-DE Goal INR 2.5; range 2.0 - 3.0 or Goal INR 3.0; range 2.5 - 3.5 Atrial Fibrillation Goal INR 2.5; range 2.0 - 3.0 Ischemic Stroke Goal INR 2.5; range 2.0 - 3.0 Driss Dahl MD HEMATOLOGY ORDERABLES Final Result [facility] [employer] [facility] CLIA # [id number] [address] [address] * (ABNORMAL) FERRITIN (03/27/2025 8:24 PM CDT) FERRITIN 541.8(H) 13.0 - 150.0 ng/mL 03/28/2025 12:40 AM CDT [facility] Blood Venipuncture / Unknown 03/27/2025 8:24 PM CDT 03/27/2025 8:44 PM CDT Driss Dahl MD CHEMISTRY ORDERABLES Final R esult Performing Organization Address [facility]/ZIP Co de Phone Number [facility] CLIA # [id number] [address] [id number] [place] [address] * TYPE AND SCREEN (03/27/2025 8:21 PM CDT) ABO GROUP B 03/27/2025 9:56 PM CDT [facility] RH (D) TYPE Positive 03/27/2025 9:56 PM CDT [facility] ANTIBODY SCREEN Negative 03/27/2025 9:56 PM CDT [facility] Blood Venipuncture / Unknown 03/27/2025 8:21 PM CDT 03/27/2025 8:39 PM CDT Driss Dahl MD BLOOD BANK ORDERABLES Edited Result - Final Performing Organization Address [facility] Co de Phone Number [facility] [employer] [facility] CLIA#[id number] [address] [place] [address], * XR CHEST PA OR AP 1 [...] Months Insurance MEDICARE PART A AND B [facility] Advance Directives For more information, please contact: [phone] * Full Code (Latest Code Status on File) Date Activated Date Inactivated Comments 03/27/2025 7:16 PM 04/03/2025 4:08 AM
--- OUTSIDE RECORDS SUMMARY | 2025-04-06 16:29 | XMS_ITS | Encounter Summary ---
Author Organization [facility] Address [address] [place] [address] Care Team Providers Care Production Material Handler Name Role Phone Unavailable Primary Care Provider Unavailabl e Reason for Visit * Reason Onset Date Comments OTHER 04/06/2025 Encounter Details Date Type Department Care Team (Late st Contact Info) Description 04/06/2025 Telephone [facility] Gen Spec Surg [facility] [address] [place] [address] Tucker Marroquin MD [address] [place] [address] OTHER Social History Tobacco Use Types Packs/Day Years [...] PM CDT documented as of this encounter Miscellaneous Notes * Telephone Encounter - Lisa Vick, RN - 04/06/2025 9:15 AM CDT Spoke with Ashli at the longterm. I also called Dr. Marroquin who states that as long as the area is draining, then we can monitor. She states that there has been a lot of drainage around her percdrain. I moved up the appt to this week with Dr. Marroquin. Ashli voiced understanding and I instructed her to take patient to the nearest ER if she worsens. She voiced understanding. * Telephone Encounter - Ifrah Velasquez - 04/06/2025 8:41 AM CDT Cara Chavez with [facility] called to inform that pt went to [facility] over the weekend and d/c'ed her saying the fecal amount leaking was normal and a second opinion from Dr Siva Jean said it was not normal. Pt needs appt with Dr Marroquin rosa m please? [phone] documented in this encounter Plan of Treatment Upcoming Encounters Date Type Department Care Team (Late st Contact Info) Description 04/10/2025 9:15 AM CDT Office Visit [facility] Gen Spec Surg [place] [address] [facility] [address] [place] [address] Tucker Marroquin MD [address] [facility] [address] [place] [address] documented as of this encounter Visit Diagnoses Not on filedocumented in this encounter
--- OUTSIDE RECORDS SUMMARY | 2025-04-06 16:30 | XMS_ITS | Encounter Summary ---
Author Organization [facility] Address [address] [place] [address] Care Team Providers Care Instantizer Operator Name Role Phone Unavailable Primary Care [...] Description 04/10/2025 9:15 AM CDT Office Visit [facility] Gen Spec S[place] [address] [place] [address] Tucker Marroquin MD [address] [place] [id number] documented as of this encounter Visit Diagnoses Not on filedocumented in this encounter
--- NOTE | 2025-04-06 16:39 | CTR_ITS ---
PROCEDURE INFORMATION: Exam: CT Abdomen And Pelvis With Contrast Exam date and time: 04/06/2025 5:45 PM Age: 85 years old Clinical indication: Abdominal pain; Acute; Prior surgery; Surgery date: <1 month; Surgery type: Abd drain; Additional info: Abd pain/drain malfunction TECHNIQUE: Imaging protocol: Computed tomography of the abdomen and pelvis with contrast. Radiation optimization: All CT scans at this facility use at least one of these dose optimization techniques: automated exposure control; mA and/or kV adjustment per patient size (includes targeted exams where dose is matched to clinical indication); or iterative reconstruction. Contrast material: OMNI 350; Contrast volume: 100 ml; Contrast route: INTRAVENOUS (IV); COMPARISON: CT abdomen pelvis w con* [id number] 03/27/2025 7:35 AM RADIATION DOSE METRICS: Total DLP (mGy-cm): 603.65 FINDINGS: Tubes, catheters and devices: Inferior to the distal sigmoid colon and posterior to the urinary bladder there is a fluid and gas collection or abscess with a pigtail drain. The collection measures 6.1 x 3.7 cm previously 6 x 4.2 cm. Multiple left gluteal peripherally enhancing collections or abscesses are seen in the gluteus jameson muscle, which are increased in size and number. Currently the largest measures 4.1 x 2.2 cm laterally. These tract lateral to the entry site of the drain. Lungs: Mild dependent atelectasis at the lung bases. Liver: Multiple liver cysts are again seen. Gallbladder and biliary ducts: Multiple cystic lesions are seen in the pancreas, the largest measuring 1.8 x 2.0 cm in the pancreatic head medial to the common bile duct. Pancreas: Normal. No ductal dilation. Spleen: Normal. No splenomegaly. Adrenal glands: Normal. No mass. Kidneys and ureters: Left renal cyst. Stomach and bowel: [id number] wall thickening of the sigmoid colon with diverticulosis. Wall thickening is slightly less prominent. No obstruction. Small bowel within normal limits. Appendix: No evidence of appendicitis. Intraperitoneal space: Unremarkable. No free air. No significant fluid collection. Vasculature: Unremarkable. No abdominal aortic aneurysm. Lymph nodes: Unremarkable. No enlarged lymph nodes. Urinary bladder: Unremarkable as visualized. Reproductive: Unremarkable as visualized. Bones/joints: Anterolisthesis of L4 on L5 of 9-10 mm without change. There is near complete loss of the disc at L4-L5. Suggestion of L4 pars defects bilaterally. Soft tissues: See Tubes, catheters and devices finding. Other findings: Study is somewhat limited by patient motion. CT/CT abdomen pelvis w con* [id number] IMPRESSION: 1. Left pelvic abscess with a drain in place as described. 2. Multiple left gluteal abscesses which are increased. 3. Decreased wall thickening of the sigmoid colon. 4. Multiple pancreatic cystic lesions. Reimaging every 2 years for 4 years is recommended for these pancreatic cystic lesions. (Reference: Wale, 2017) References: Wale OLIVERA, et al. Management of Incidental Pancreatic Cysts: A White Paper of the ACR Incidental Findings Committee. J Am Luz Elena Radiol. 2017;14(7):911-923. COMMENTS: Consistent with the [employer]'s Incidental Findings Committee white paper (J Am Luz Elena Radiol 2018): Any incidental renal lesion less than 1 cm or classified as too small to characterize, or any incidental cystic renal lesion characterized as simple-appearing, is likely benign. No follow-up imaging is recommended for these lesions per consensus recommendations based on imaging criteria.
--- NOTE | 2025-04-06 16:40 | ED_ITS ---
HPI - Skin/Abscess/Foreign Bdy 2 General: Chief complaint: Skin/Abscess/Foreign Body Stated complaint: drain issues Time Seen by Provider: 04/06/25 16:33 Source: EMS Mode of arrival: EMS History of Present Illness: 85-year-old female had a history of dive rticulitis with a perforation she had a drain placed at [facility] over a week ago. Patient been sent here from the assisted as the drain has not been draining any material. Patient's been afebrile no known vomiting Associated symptoms: Deny chills, fever(s), nausea or vomiting Related Data Home Medications ?Medication ?Instructions ?Recorded ?Confirmed ibuprofen 200 mg tablet (Motrin IB) 200 mg PO BID PRN Pain 10/28/19 03/22/25 Previous Rx's ?Medication ?Instructions ?Recorded acyclovir 5 % topical ointment See Rx Instructions .Ro estrellita 07/14/24 .COMPLEX #15 grams ferrous sulfate 325 mg (65 mg 325 mg PO DAILY #90 tabs 10/30/24 iron) tablet hydrocodone 10 mg-acetaminophen 1 tab PO BID PRN pain 1 day #1 tab 01/19/25 325 mg tablet prednisone 10 mg tablet See Rx Instructions .Route 0 02/24/25 .COMPLEX #90 tabs wheeled walker, with brakes, seat #1 ea 02/24/25 sulfamethoxazole 800 1 tab PO BID infection 7 day s #14 02/26/25 mg-trimethoprim 160 mg tablet tabs (Bactrim DS) pantoprazole 20 mg tablet,delayed See Rx Instructions .Route 03/03/25 release .COMPLEX #60 tabs clopidogrel 75 mg tablet 75 mg PO DAILY #90 tabs 02/22 10/18 Allergies Allergy/AdvReac Type Severity Reaction Status Date / Time No Known Allergies Allergy Verified 02/24/25 09:28 Review of Systems 2 Const: Denies: fever(s), chills, body aches or change in appetite ENMT: Denies: throat pain or dental pain Card: Denies: chest pain Resp: Denies: dyspnea GI: Denies: abdominal pain, nausea, vomiting or diarrhea Musc: Denies: neck pain or back pain Skin/Breast: Denies: rash Neuro: Denies: headache(s) PFSH ED 2 PFSH: Medical History 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 Chronic narcotic use Restless leg syndrome Chronic left shoulder pain Arthritis Back Pain Doing well on current meds DDD (degenerative disc disease), lumbar Degenerative lumbar spinal stenosis Acquired spondylolisthesis Cervical disc disorder with myelopathy, unspecified cervical region Chronic neck and back pain Pain of right upper extremity Degenerative joint disease of both lower legs Radiculopathy, site unspecified Surgical History History of total left knee replacement Status post carpal tunnel release bilateral in 1979, left 2022 History of total right knee replacement Family History Other CAD (coronary artery disease) Hypertension Social History Smoking and tobacco/nicotine status: never used tobacco/nicotine Second hand smoke exposure: No Alcohol intake: never Substance/Drug Use: never 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 Physical Exam 2 Const: COMMON NORMALS: patient oriented x3 HENMT: COMMON NORMALS: normocephalic and atraumatic HEAD & SCALP: n ormocephalic and atraumatic Eye: COMMON NORMALS: Equal, round and reactive pupils present and EOMs intact bilaterally PUPIL: Yes Equal, round and reactive pupils present Neck/C-Spine: COMMON NORMALS: full ROM and supple Chest: COMMONS NORMALS: normal inspection of the chest Resp: COMMON NORMALS: normal respiratory effort, No retractions, No use of accessory muscles and clear to auscultation bilaterally AUSCULTATION: clear to auscultation bilaterally Cardio: COMMON NORMALS: regular rate, regular rhythm and No murmurs present (Cardio) RATE: regular rate RHYTHM: regular rhythm GI: COMMON NORMALS: Normal to inspection, nondistended, normoactive bowel sounds present, Soft to palpation, non-tender and no masses PALPATION: Yes Soft to palpation Back/Pelvis: OTHER: Drain in place to left lower flank no material in the drainage bag Extremity: COMMON NORMALS: normal to inspection and full ROM Neuro: COMMON NORMALS: patient oriented x3, moves all extremities and no focal motor deficits Psych: COMMON NORMALS: mental status grossly normal, Normal thought process present and cooperative THOUGHT PROCESS: Normal thought process present Skin: COMMON NORMALS: no rashes or lesions noted and no wounds GENERAL SKIN EXAM: no rashes or lesions noted Course 2 Vital Signs: Vital signs: Vital Signs Temperature 98.5 F 04/06/25 16:26 Pulse Rate 90 04/06/25 18:00 Respiratory Rate 16 04/06/25 16:26 Blood Pressure 119/55 04/06/25 18:00 Pulse Oximetry 99 04/06/25 18:00 Oxygen Delivery Me thod Room Air 04/06/25 18:00 MDM - Skin/Abscess/Foreign Bdy Medicial Decision Making Patient presents here with decreased output from her drain she does have an elevated white count increased pain I spoke to her surgeon at [facility] he is wanting her transfer there for likely colostomy will start on antibiotics will transfer to [facility] for colorectal services Medical Records I reviewed the patient's medical records. Lab Data I reviewed the patient's lab results. 04/06/25 16:49 04/06/25 16:49 Radiology Impressions Abdomen/Pelvis CT 04/06/25 16:39 IMPRESSION: 1. Left pelvic abscess with a drain in place as described. 2. Multiple left gluteal abscesses which are increased. 3. Decreased wall thickening of the sigmoid colon. 4. Multiple pancreatic cystic lesions. Reimaging every 2 years for 4 years is recommended for these pancreatic cystic lesions. (Reference: Wale, 2017) References: Wale OLIVERA, et al. Management of Incidental Pancreatic Cysts: A White Paper of the ACR Incidental Findings Committee. J Am Luz Elena Radiol. 2017;14(7):911-923. COMMENTS: Consistent with the [place] [employer]'s Incidental Findings Committee white paper (J Am Luz Elena Radiol 2018): Any incidental renal lesion less than 1 cm or classified as too small to characterize, or any incidental cystic renal lesion characterized as simple-appearing, is likely benign. No follow-up imaging is recommended for these lesions per consensus recommendations based on imaging criteria. Laboratory Results WBC 15.22 10^3/uL (3.29-11.43) H 04/06/25 16:49 RBC 3.52 10^6/uL (3.85-5.65) L 04/06/25 16:49 Hgb 11.00 g/dL (11.27-16.99) L 04/06/25 16:49 Hct 36.0 % (36-47) 04/06/25 16:49 MCV 102.3 fl (85-98) H 04/06/25 16:49 MCH 31.3 pg (27-33) 04/06/25 16:49 MCHC 30.6 g/dL (30-55) 04/06/25 16:49 RDW 15.4 % (12.1-15.1) H 04/06/25 16:49 Plt Count 629 10^3/cmm (157-399) H 04/06/25 16:49 MPV 9.5 fL (7.4-10.4) 04/06/25 16:49 Neut % (Auto) 80.7 % 04/06/25 16:49 Lymph % (Auto) 11.6 % 04/06/25 16:49 Payette % (Auto) 7.1 % 04/06/25 16:49 Eos % (Auto) 0.1 % 04/06/25 16:49 Baso % (Auto) 0.1 % 04/06/25 16:49 Neut # (Auto) 12.30 10^3/uL (1.8-7.7) H 04/06/25 16:49 Lymph # (Auto) 1.8 10^3/uL (0.8-4.8) 04/06/25 16:49 [place]ette # (Auto) 1.1 10^3/uL (0.2-0.9) H 04/06/25 16:49 Eos # (Auto) 0.0 10^3/uL (0.0-0.8) 04/06/25 16:49 Baso # (Auto) 0.0 10^3/uL (0.0-0.1) 04/06/25 16:49 Nucleated RBC % (auto) 0 % 04/06/25 16:49 Nucleated RBCs # 0.0 /100WBC 04/06/25 16:49 Sodium 140 mmol/L (136-145) 04/06/25 16:49 Potassium 4.0 mmol/L (3.5-5.1) 04/06/25 16:49 Chloride 104 mmol/L (98-107) 04/06/25 16:49 Carbon Dioxide 23 mmol/L (22-29) 04/06/25 16:49 Anion Gap 17.0 (5-19) 04/06/25 16:49 BUN 10 mg/dL (8-23) 04/06/25 16:49 Creatinine 0.8 mg/dL (0.5-0.9) 04/06/25 16:49 GFR Calculation Not Reportable 04/06/25 16:49 Glucose 150 mg/dL (65-115) H 04/06/25 16:49 Calculated Osmolality 292 mOsm/kg (285-295) 04/06/25 16:49 Calcium 9.5 mg/dL (8.5-10.5) 04/06/25 16:49 Total Bilirubin 0.5 mg/dL (0.15-1.2) 04/06/25 16:49 AST 14 U/L (0-32) 04/06/25 16:49 ALT 14 U/L (0-33) 04/06/25 16:49 Alkaline Phosphatase 158 U/L (35-105) H 04/06/25 16:49 Total Protein 5.7 g/dL (6.6-8.7) L 04/06/25 16:49 Albumin 2.8 g/dL (3.5-5.2) L 04/06/25 16:49 Globulin 2.9 g/dL (1.3-4.6) 04/06/25 16:49 All radiology interpretation(s) finalized by discharge Discharge Plan Discharge Patient Disposition: Xfer Short-Term Hosp Clinical Impression: Diverticulitis Condition: Stable Referrals: Sudheer Canchola DO [Primary Care Provider, 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
[2025-04-06 17:01] LABS: Hematocrit 36.0 % (36-47); Hemoglobin 11.00 g/dL (11.27-16.99); Mean Corpuscular HGB Conc 30.6 g/dL (30-55); Mean Corpuscular Hemoglobin 31.3 pg (27-33); Mean Corpuscular Volume 102.3 fl (85-98); Nucleated Red Blood Cells % 0 %; Platelet Count 629 10^3/cmm (157-399); Red Blood Count 3.52 10^6/uL (3.85-5.65); White Blood Count 15.22 10^3/uL (3.29-11.43)
[2025-04-06 17:17] LABS: Alanine Aminotransferase 14 U/L (0-33); Albumin Level 2.8 g/dL (3.5-5.2); Alkaline Phosphatase 158 U/L (35-105); Anion Gap 17.0 (5-19); Aspartate Amino Transferase 14 U/L (0-32); Blood Urea Nitrogen 10 mg/dL (8-23); Calcium 9.5 mg/dL (8.5-10.5); Carbon Dioxide 23 mmol/L (22-29); Chloride 104 mmol/L (98-107); Globulin 2.9 g/dL (1.3-4.6); Glucose 150 mg/dL (65-115); Osmolality Calculated 292 mOsm/kg (285-295); Potassium 4.0 mmol/L (3.5-5.1); Sodium 140 mmol/L (136-145); Total Protein 5.7 g/dL (6.6-8.7)
[2025-04-06] MEDS: morphine 4 mg/mL SDV 1 mL IVP ×2 (17:20→18:38)
[2025-04-06] MEDS: ondansetron 2 mg/ML SDV 2 mL 4 MG IVP (17:20)
[2025-04-06] MEDS: iohexol 350 mg/mL 500 mL Btl (per mL) IV (17:47)
[2025-04-06 18:00] VITALS: BP 119/55; PULSE 90; O2SAT 99
[2025-04-06] MEDS: piperacillin-tazobactam 3.375 GM in sodium chloride 0.9% (plus) 50 ML IV (19:16)
[2025-04-06 20:49] VITALS: BP 92/50; O2SAT 96
[2025-04-06 22:40] VITALS: BP 93/60; O2SAT 97
[2025-04-06 23:09] LABS: Lactic Sepsis W/Reflex 1.1 mmol/L (0.5-2.2)
[2025-04-07] VITALS (7 sets, daily range): BP systolic 99–141; BP diastolic 61–77; PULSE 68–97; RESP 14–16; O2SAT 93–99
[2025-04-07] MEDS: morphine 4 mg/mL SDV 1 mL IVP ×2 (01:05→09:28)
[2025-04-07] MEDS: piperacillin-tazobactam 3.375 GM in sodium chloride 0.9% (plus) 50 ML IV ×2 (01:06→07:13)
--- NOTE | 2025-04-07 11:19 | PC.NURSE ---
report called to [facility]
== END 2025-04-07 10:05 | disposition short-term general hospital (02) ==
PROVIDERS: Emergency Provider Emergency Medicine; PCP Family Medicine
DX: K57.92 Diverticulitis of intestine, part unspecified, without perforation or abscess without bleeding (principal); Z79.899 Other long term (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 therapy
CPT/HCPCS: 36415; 74177; 80053; 83605; 85025; 87040; 96365; 96375; 96376; 99285; J2270; J2405; J2543; J7030

== ENCOUNTER 2025-04-26 07:47 | Inpatient (IN) | payer MEDICARE, OTHER, SELFPAY ==
[2025-04-26] VITALS (19 sets, daily range): BP systolic 86–125; BP diastolic 35–77; PULSE 101–121; RESP 13–22; TEMP 36.8–37.3; O2SAT 85–97
--- NOTE | 2025-04-26 07:51 | XRR_ITS ---
PROCEDURE INFORMATION: Exam: XR Chest Exam date and time: 04/26/2025 8:04 AM Age: 85 years old Clinical indication: Other: AMS TECHNIQUE: Imaging protocol: Radiologic exam of the chest. Views: 1 view. COMPARISON: CT chest abdpel [id number] 03/23/2025 5:11 PM FINDINGS: Lungs: Bibasilar atelectasis. There is no evidence of focal pulmonary consolidation. Pleural spaces: Unremarkable. No pleural effusion. No pneumothorax. Heart/Mediastinum: There is calcification of the mitral valve annulus. Bones/joints: Moderate degenerative disease of bilateral acromioclavicular joints. There are mild degenerative changes of the glenohumeral joint. There is mild curvature of the thoracic spine convex to the right XR/XR chest 1V portable [id number] IMPRESSION: Bibasilar atelectasis with no focal consolidation.
--- NOTE | 2025-04-26 07:51 | CTR_ITS ---
PROCEDURE INFORMATION: Exam: CT Abdomen And Pelvis With Contrast Exam date and time: 04/26/2025 9:28 AM Age: 85 years old Clinical indication: Abdominal pain; Additional info: Abd pain TECHNIQUE: Imaging protocol: Computed tomography of the abdomen and pelvis with contrast. Radiation optimization: All CT scans at this facility use at least one of these dose optimization techniques: automated exposure control; mA and/or kV adjustment per patient size (includes targeted exams where dose is matched to clinical indication); or iterative reconstruction. Contrast material: OMNI 350; Contrast volume: 100 ml; Contrast route: INTRAVENOUS (IV); COMPARISON: CT abdomen pelvis w con* [id number] 04/06/2025 5:45 PM RADIATION DOSE METRICS: Total DLP (mGy-cm): 543.76 FINDINGS: Lungs: Small right basilar infiltrate. Dependent left basilar atelectasis. Liver: Multiple hepatic simple cysts. Gallbladder and biliary ducts: Gallbladder appears distended. No significant change of intrahepatic biliary ductal dilatation. Common bile duct is more dilated on today's study measuring 1.4 cm. Pancreas: Stable pancreatic uncinate process hypodense lesion measuring 1.8 x 1.8 cm. Spleen: Normal. No splenomegaly. Adrenal glands: Normal. No mass. Kidneys and ureters: Bilateral renal simple cysts. Stomach and bowel: Postsurgical changes involving the sigmoid colon. No small bowel loop dilatation. Appendix: Appendix is normal. Intraperitoneal space: Unremarkable. No free air. No significant fluid collection. Vasculature: Mild calcified atherosclerotic changes are seen throughout the abdominal aorta. Lymph nodes: Unremarkable. No enlarged lymph nodes. Urinary bladder: Rollins catheter in the bladder. Reproductive: Post hysterectomy changes are seen. Extraperitoneal space: Small presacral fluid. Bones/joints: Severe lumbar spine degenerative changes. Soft tissues: Unremarkable. CT/CT abdomen pelvis w con* [id number] IMPRESSION: 1. Common bile duct appears more dilated on today's study. Gallbladder appears distended. Obstructive cholangiopathy can not be excluded. Clinical correlation is advised. If indicated, MRCP can be obtained for further evaluation. 2. Small right basilar infiltrate. Finding could represent early pneumonic process. Imaging follow-up until resolution is advised. 3. Stable pancreatic uncinate process hypodense lesion measuring 1.8 x 1.8 cm. 4. No pelvic fluid collection. 5. Small presacral fluid. 6. Mild calcified atherosclerotic changes are seen throughout the abdominal aorta. 7. Severe lumbar spine degenerative changes. COMMENTS: Consistent with the [place] [employer]'s Incidental Findings Committee white paper (J Am Luz Elena Radiol 2018): Any incidental renal lesion less than 1 cm or classified as too small to characterize, or any incidental cystic renal lesion characterized as simple-appearing, is likely benign. No follow-up imaging is recommended for these lesions per consensus recommendations based on imaging criteria.
--- NOTE | 2025-04-26 07:51 | CTR_ITS ---
PROCEDURE INFORMATION: Exam: CT Head Without Contrast Exam date and time: 04/26/2025 9:23 AM Age: 85 years old Clinical indication: Altered mental status/memory loss; Additional info: AMS TECHNIQUE: Imaging protocol: Computed tomography of the head without contrast. Radiation optimization: All CT scans at this facility use at least one of these dose optimization techniques: automated exposure control; mA and/or kV adjustment per patient size (includes targeted exams where dose is matched to clinical indication); or iterative reconstruction. COMPARISON: CT head wo con* [id number] 03/22/2025 5:14 PM RADIATION DOSE METRICS: Total DLP (mGy-cm): 1838.94 FINDINGS: Brain: Age related diffuse parenchymal volume loss. There are bilateral periventricular white matter and centrum semiovale hypodensities, consistent with chronic ischemic small vessel disease. No recent infarct, intracranial bleed or mass effect. Cerebral ventricles: Ex vacuo dilatation of the ventricles. Paranasal sinuses: Visualized sinuses are unremarkable. No fluid levels. Mastoid air cells: Visualized mastoid air cells are well aerated. Orbital cavities: Post bilateral cataract surgery. Bones: Unremarkable. No acute fracture. Soft tissues: Similar focal swelling in the left frontal scalp. CT/CT head wo con* [id number] IMPRESSION: No large territorial infarct or intracranial bleed.
--- NOTE | 2025-04-26 07:52 | ECG_ITS ---
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: : 1940 Requested By: Vladimir Sullivan Order Number: [id number] Reading MD: GURINDER IVEY Measurements Intervals [place] Rate: 112 P: 54 NM: 135 QRS: -37 QRSD: 90 T: 55 QT: 330 QTc: 452 Interpretive Statements SINUS TACHYCARDIA WITH OCCASIONAL SUPRAVENTRICULAR PREMATURE COMPLEXES LEFT AXIS DEVIATION [QRS AXIS < -30] LOW QRS VOLTAGE IN PRECORDIAL LEADS [QRS DEFLECTION < 1.0 mV IN CHEST LEADS] POSSIBLE ANTERIOR MYOCARDIAL INFARCTION , OF INDETERMINATE AGE [30 ms Q WAVE IN V3/V4, OR R < 0.2 mV IN V4] Compared to ECG 03/25/2025 04:05:10 Left-axis deviation now present Myocardial infarct finding now present Sinus rhythm no longer present Left anterior fascicular block no longer present Electronically Signed On 04-27-2025 13:56:50 CDT by GURINDER IVEY [email or web address]
--- OUTSIDE RECORDS SUMMARY | 2025-04-26 07:57 | XMS_ITS | Patient Health Record ---
Author Organization [facility] Address [address] [place], [place] [address] Care Team Providers Care Academic Guidance Specialist Name Role Phone Sudheer Canchola DO Primary Care Provider Mercedes Montes De Oca MD, Aneesh Unavailable [phone] Ozzie STEEN, Jas Unavailable Unavailable Trisha Miles Unavailable [phone] Allergies No Known Allergies Results Component Value [...] (max 4/day; hold within 4H of planned sleep); Duration: 28 days Do not fill prior to [...] (max 4/day; hold within 4H of planned sleep); Duration: 28 days Do not fill prior to 03/20/25. ICD-10: G89.29 02/18/2025 Active acetaminophen-hydrocodo ne 325 mg-10 mg 1 tab orally Q4H prn pain (max 4/day; hold within 4H of planned sleep); Duration: 28 days Do not fill prior to [...] W/U Status Risk Notes Problem Solitary sacroiliitis (721729296) Sacroiliitis, not elsewhere classified (M46.1) Active confirmed Problem Spondylosis without myelopathy or radiculopathy, lumbar region (M47.816) Active confirmed Problem High risk drug monitoring status (498002799) buttermaker (current) use of opiate analgesic (Z79.891) Active confirmed Problem Sleep disorder (99678745) Other sleep disorders (G47.8) Active confirmed Problem Chronic pain (15302760) Other chronic pain (G89.29) Active confirmed Problem Disorder of lumbar disc (133764295) Other intervertebral disc disorders, 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) Active confirmed Problem Radiculopathy (38931143) Radiculopathy, site unspecified (M54.10) Active confirmed Problem Post-laminectomy syndrome (84742968) Postlaminectomy syndrome, not elsewhere classified (M96.1) Active confirmed Problem Long-term current use of drug therapy (417241471) Other oil heaterman (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 therapy (Z79.899) Active confirmed Problem Vertebrogenic low back pain (872227416475598 101) 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 Vital Signs Temperature 93.8 degrees Fahrenheit 02/18/2025 Blood pressure diastolic 73 mm Hg 12/24/2024 Oximetry 98 % 02/18/2025 Height 60 in 02/18/2025 Blood pressure systolic 150 mm Hg 12/24/2024 Weight 148.6 lbs 12/24/2024 BMI 29.02 kg/m2 12/24/2024 Encounters Encounter Location Date Provider Diagnosis [facility] [place] [address] [place], [place] [id number] 08/11/2024 Trisha Sneed Vertebrogenic low ba ck pain M54.51 ; Spondylosis without myelopathy or radiculopathy, lumbar region M47.816 ; Sacroiliitis, not elsewhere classified M46.1 ; Other intervertebral disc disorders, lumbar region M51.86 ; Postlaminectomy syndrome, not elsewhere classified M96.1 ; Other sleep disorders G47.8 and Other oil heaterman (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 therapy Z79.899 [facility], [facility] [address] [place], [place] [id number] 08/20/2024 Aneesh Montes De Oca Vertebrogenic low ba ck pain M54.51 ; Postlaminectomy syndrome, not elsewhere classified M96.1 ; Other sleep disorders G47.8 and Other oil heaterman (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 therapy Z79.899 [facility], [facility] [address] [place], [place] [id number] 09/03/2024 Aneesh Montes De Oca Vertebrogenic low ba ck pain M54.51 ; Other chronic pain G89.29 ; Postlaminectomy syndrome, not elsewhere classified M96.1 ; Other sleep disorders G47.8 and Other oil heaterman (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 therapy Z79.899 [facility], [facility] [address] [place], [place] [phone] 10/29/2024 Aneesh Montes De Oca Vertebrogenic low ba ck pain M54.51 ; Other chronic pain G89.29 ; Postlaminectomy syndrome, not elsewhere classified M96.1 and Other sleep disorders G47.8 [facility], [facility] [address] [place], [place] [phone] 12/24/2024 Aneesh Montes De Oca Vertebrogenic low ba ck pain M54.51 ; Other chronic pain G89.29 ; Postlaminectomy syndrome, not elsewhere classified M96.1 and Other sleep disorders G47.8 [facility], [facility] [address] [place], [place] [phone] 02/18/2025 Aneesh Montes De Oca Vertebrogenic low [...] L4-5 as described in the report. 08/11/2024 Spondylosis without myelopathy or radiculopathy, lumbar region (ICD-10 - M47.816) Consider interventional treatment pending evaluation by Dr. Montes De Oca. 08/11/2024 Vertebrogenic low back pain (ICD-10 - M54.51) [facility] Consider treatment options pending review of imaging [...] relation to sleep for safety concerns. 09/03/2024 Postlaminectomy syndrome, not elsewhere classified (ICD-10 - M96.1) Consider SCS trial for patient's postlaminectomy syndrome and significant spinal stenosis. Verbal and written information provided patient on 08/20/24. 10/29/2024 Postlaminectomy syndrome, not elsewhere classified (ICD-10 [...] not get very much sleep - for oil heaterman duration). Patient has been counseled on the [...] pain medication allows her to complete light recapper daily. Plan to continue oral opioid medication management. 12/24/2024 Postlaminectomy syndrome, not elsewhere classified (ICD-10 - M96.1) Consider SCS trial for patient's postlaminectomy syndrome and significant spinal stenosis. Verbal and written information provided patient on 08/20/24. Patient has deferred on this treatment option thus far. 08/20/2024 Other prison (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 therapy (ICD-10 - Z79.899) Patient [...] to L4-5 as described in the report. 10/29/2024 Other sleep disorders (ICD-10 - G47.8) [...] not get very much sleep - for prison duration). 09/03/2024 Other prison (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 therapy (ICD-10 - Z79.899) Patient [...] M96.1) Plan to obtain Operative Note from [facility]. Consider interventional treatment pending evaluation by Dr. Montes De Oca. 12/24/2024 Other sleep disorders (ICD-10 - G47.8) Consider a sleep study. Plan to restrict opioid usage in relation to sleep for safety concerns. 08/11/2024 Other sleep disorders (ICD-10 - G47.8) Consider completion of a sleep study. 08/11/2024 Other oil heaterman (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 therapy (ICD-10 - Z79.899) Patient [...] the ongoing care plan established by Aneesh oMntes De Oca MD, who was present in [...] closing due to Dr. Montes De Oca's senior care; see scanned document. Terminal prescriptions were given [...] Medicare Part B Claims Department [address] [address] [place] [address] [id number] Gita Stubbs Self - patient is the insured [employer] [address] [place] [phone] [id number] Gita Stubbs Self - patient is the [...] and restless legs (and some hypersomnia - [place] score = 6) Surgical History Surgery Date(Month/Year) Left carpal tunnel release at [facility], 1970s Knee replacement, left, performed in [place], [place] Knee replacement, right, performed in [place], [place] Bilateral L3-L4 laminotomies / facetectomies, performed at [facility] by Dr. Brooke, 03/16/14 Right carpal tunnel release at [facility] by Tejas Burkett, 2022 Hospitalization History Reason Date(Month/Year) Confusion and UTI, treated [facility], 05/13/24
--- OUTSIDE RECORDS SUMMARY | 2025-04-26 07:57 | XMS_ITS | Encounter Summary ---
Author Organization [facility] Address [address] [place] [address] Care Team Providers Care Roastmaster Name Role Phone Unavailable Primary Care Provider Unavailabl e Encounter Details Date Type Department Care Team (Late st Contact Info) Description 04/21/2025 Orders Only [facility] [address] [place] [address] Provider, Abstract NO ADDRESS ON FILE Social History Tobacco Use Types Packs/Day Years Used Date Smoking Tobacco: Never Smokeless Tobacco: Never Alcohol Use Standard Drinks/Week Comments Never 0 (1 standard drink = 0.6 oz pur e alcohol) Comments Unknown Sex and Gender Information Value Date Recorded Sex Assigned at Female 06/08/2024 4:38 PM CDT Legal Sex Female 8:49 AM CDT Gender Identity Female 06/08/2024 4:38 PM CDT Sexual Orientation Straight 06/08/2024 4: 38 PM CDT documented as of this encounter Plan of Treatment Upcoming Encounters Date Type Department Care Team (Late st Contact Info) Description 05/05/2025 10:30 AM CDT Office Visit [facility] [place] [address] [place] [id number] Jayda Tamez NP [address] [place] [address] documented as of this encounter Procedures Procedure Name Priority Date/Time Associated Diagnosis Comments COMPREHENSIVE METABOLIC PANEL Routine 04/06/2025 11:53 AM CDT documented in this encounter Results * COMPREHENSIVE METABOLIC PANEL (04/06/2025 11:53 AM CDT) Blood us Abstract Provider CHEMISTRY ORDERABLES Final Res ult documented in this encounter Visit Diagnoses Not on filedocumented in this encounter
--- OUTSIDE RECORDS SUMMARY | 2025-04-26 07:57 | XMS_ITS | Clinical Summary ---
Author Organization [facility] Address [address] [place] [address] Care Team Providers Care Waitstaff Captain Name Role Phone Unavailable Primary Care Provider [...] Tablets by mouth daily with breakfast. Active HYDROcodone-acetam inophen (NORCO) 10-325 mg Tablet Take 1 Tablet by mouth every 4 hours as needed for Pain. Active zinc OXIDE-cod liver oil (Desitin) 40 % Paste Apply to affected area 2 times daily. 04/02/20 25 Active naloxone (NARCAN) 4 mg/spray [place], Non-Aerosol EMERGENCY USE ONLY: Administer 1 spray (4 mg) in one nostril one time. May repeat in alternating nostrils every 2-3 min until responsive or EMS arrives. 04/02/20 25 Active oxyCODONE-acetamin ophen (Percocet) 5-325 mg tabletIndications: Abscess of sigmoid colon due to diverticulitis Take 1 Tablet by mouth every 4 hours as needed for Pain, Moderate. Max Daily Amount: 6 Tablets 30 Tablet 04/09/20 25 Active amoxicillin-clavul anate (AUGMENTIN) 875-125 mg tablet Take 1 Tablet by mouth every 12 hours for 10 days. 04/02/20 25 025 saccharomyces boulardii (FLORASTOR) 250 mg Capsule Take 1 Capsule (250 mg) by mouth 2 times daily for 14 days. 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 [place] [phone] Jayda Tamez NP Results 04/14/2025 External Device Data STL ABSTRACTION Provider, Abstract 04/14/2025 External Device Data STL ABSTRACTION Provider, Abstract 04/09/2025 3:54 PM CDT - 04/09/2025 6:27 PM CDT Surgery [facility] Operating Room [address] [place] [address] Tucker Marroquin MD COLON RESECTION LOW ANTERIOR LAPAROSCOPIC 04/09/2025 2:28 PM CDT Anesthesia Event [facility] Operating Room [address] [place] [phone] Tucker Carey MD Saeler, Carmen Ruth, CRNA 04/08/2025 External Device Data STL ABSTRACTION Provider, Abstract 04/08/2025 Orders Only [facility] Gen Spec Surg [place] [address] [place] [phone] Tucker Marroquin MD 04/07/2025 2:20 PM CDT - 04/17/2025 6:00 PM CDT Hospital Encounter [facility] 3A Surgical [address] [place] [phone] Jackson Alas MD Griffin, MD Andreina Herrera Saroj, MD Khan, Amina, MD Abscess of sigmoid colon due to diverticulitis Discharge Disposition: [facility](SNF) with Medicare Certification in Anticipation of Skilled Care 04/07/2025 External Device Data STL ABSTRACTION Provider, Abstract 04/06/2025 Telephone [facility] Gen Spec Surg [place] [address] [place] [phone] Tucker Marroquin MD OTHER 04/03/2025 Orders Only [facility] HIM [address] [place] [phone] Provider, Abstract 04/02/2025 - 04/02/2025 11:59 PM CDT Hospital Encounter [facility] Emergency Medical Services [place] [address] [place] [address] Ambulance, [facility] Rico Galvan MD Discharge Disposition: Intermediate Care Facility 03/31/2025 External Device Data STL ABSTRACTION Provider, Abstract 03/31/2025 External Device Data [place] ABSTRACTION Provider, Abstract 03/31/2025 External Device Data [place] ABSTRACTION Provider, Abstract 03/27/2025 6:59 PM CDT - 04/03/2025 12:02 AM CDT Hospital Encounter [facility] 3D Medical Telemetry [address] [place] [phone] Garth Azar MD Sundaram, MD Cole Naqvi Jagdeep S, MD Sigmoid diverticulitis Discharge Disposition: [facility](SNF) with [...] Sign Reading Time Taken Comments Blood Pressure 151/83 04/17/2025 3:30 PM CDT Pulse 100 04/17/2025 3:30 PM CDT Temperature 36.8 C (98.3 F) 04/17/2025 3:30 PM CDT Respiratory Rate 19 04/17/2025 3:30 PM CDT Oxygen Saturation 95% 04/17/2025 3:30 PM CDT Inhaled Oxygen Concentration - - Weight 75.2 kg (165 lb 12.6 oz) 04/14/2025 8:00 AM CDT Height 152.4 cm (5') 04/07/2025 2:27 PM CDT Body Mass Index 32.38 04/07/2025 2:27 PM CDT Plan of Treatment Upcoming Encounters Date Type Department Care Team (Late st Contact Info) Description 05/05/2025 10:30 AM CDT Office Visit [facility] Gen Spec Surg [place] [address] [place] [phone] Jayda Tamez, MAMTA [address] [place] [address] Health Maintenance Due Date Last Done Comments DTAP/TDAP/TD VACCINES (1 - Tdap) 1959 PNEUMOCOCCAL VACCINE 50+ YEARS (1 of 1 - PCV) 01/21/19 92 ZOSTER VACCINE (1 of 2) 01/22/1992 OSTEOPOROSIS SCREENING 2007 RSV VACCINE (60+ or ) (1 - 1-dose 75+ series) 2017 INFLUENZA VACCINE (#1) 2025 Procedures Procedure Name Priority Date/Time Associated Diagnosis Comments TELEMETRY REPORT 04/20/2025 3:07 AM CDT POC GLUCOSE Routine 04/17/2025 1:02 PM CDT POC GLUCOSE Routine 04/17/2025 12:15 PM CDT POC GLUCOSE Routine 04/17/2025 11:46 AM CDT POC GLUCOSE Routine 04/17/2025 5:37 AM CDT COMPREHENSIVE METABOLIC PANEL Routine 04/17/2025 3:49 AM CDT CBC WITH DIFFERENTIAL Routine 04/17/2025 3:49 AM CDT POC GLUCOSE Routine 04/16/2025 8:02 PM CDT POC GLUCOSE Routine 04/16/2025 5:07 PM CDT 2019 NOVEL CORONAVIRUS (COVID-19) PCR DETECTION Routine 04/16/2025 2:11 PM CDT POC GLUCOSE Routine 04/16/2025 11:39 AM CDT POC GLUCOSE Routine 04/16/2025 8:01 AM CDT COMPREHENSIVE METABOLIC PANEL Routine 04/16/2025 4:10 AM CDT CBC WITH DIFFERENTIAL Routine 04/16/2025 4:10 AM CDT POC GLUCOSE Routine 04/15/2025 9:58 PM CDT POC GLUCOSE Routine 04/15/2025 5:06 PM CDT CBC WITH DIFFERENTIAL Stat 04/15/2025 12:12 PM CDT COMPREHENSIVE METABOLIC PANEL Routine 04/15/2025 12:12 PM CDT C-REACTIVE PROTEIN Routine 04/15/2025 12 :12 PM CDT POC GLUCOSE Routine 04/15/2025 11:45 AM CDT POC GLUCOSE Routine 04/15/2025 8:00 AM CDT POC GLUCOSE Routine 04/14/2025 10:33 PM CDT POC GLUCOSE Routine 04/14/2025 5:33 PM CDT POC GLUCOSE Routine 04/14/2025 12:23 PM CDT POC GLUCOSE Routine 04/14/2025 7:42 AM CDT POC GLUCOSE Routine 04/13/2025 9:43 PM CDT POC GLUCOSE Routine 04/13/2025 5:12 PM CDT POC GLUCOSE Routine 04/13/2025 7:21 AM CDT COMPREHENSIVE METABOLIC PANEL Routine 04/13/2025 3:57 AM CDT CBC WITH DIFFERENTIAL Routine 04/13/2025 3:57 AM CDT POC GLUCOSE Routine 04/12/2025 9:27 PM CDT POC GLUCOSE Routine 04/12/2025 5:29 PM CDT POC GLUCOSE Routine 04/12/2025 12:17 PM CDT POC GLUCOSE Routine 04/12/2025 8:30 AM CDT COMPREHENSIVE METABOLIC PANEL Routine 04/12/2025 5:44 AM CDT CBC WITH DIFFERENTIAL Routine 04/12/2025 5:44 AM CDT POC GLUCOSE Routine 04/11/2025 7:24 PM CDT POC GLUCOSE Routine 04/11/2025 5:12 PM CDT POC GLUCOSE Routine 04/11/2025 12:08 PM CDT POC GLUCOSE Routine 04/11/2025 7:15 AM CDT COMPREHENSIVE METABOLIC PANEL Routine 04/11/2025 4:12 AM CDT CBC WITH DIFFERENTIAL Routine 04/11/2025 4:12 AM CDT POC GLUCOSE Routine 04/10/2025 7:51 PM CDT POC GLUCOSE Routine 04/10/2025 4:30 PM CDT POC GLUCOSE Routine 04/10/2025 11:57 AM CDT COMPREHENSIVE METABOLIC PANEL Routine 04/10/2025 9:27 AM CDT POC GLUCOSE Routine 04/10/2025 7:54 AM CDT POC GLUCOSE Routine 04/09/2025 8:47 PM CDT POC GLUCOSE Routine 04/09/2025 4:50 PM CDT PATHOLOGY Pathology 04/09/2025 4:10 PM CDT Abscess of sigmoid colon due to diverticulitis WI UNLISTED LAPAROSCOPY PX ABD PERTONEUM & OMENTUM 04/09/2025 3:54 PM CDT Abscess of sigmoid colon due to diverticulitis WI MOBLJ SPLENIC FLXR PFRMD CONJUNCT W/PRTL COLCT 04/09/2025 3:54 PM CDT Abscess of sigmoid colon due to diverticulitis WI ANRCT XM SURG REQ ANES GENERAL SPI/EDRL DX 04/09/2025 3:54 PM CDT Abscess of sigmoid colon due to diverticulitis COLON RESECTION LOW LAPAROSCOPIC 04/09/2025 3:54 PM CDT Abscess of sigmoid colon due to diverticulitis WI ANES INSERT ENDOTRACHEAL AIRWAY Routine 04/09/2025 2:38 PM CDT CBC WITHOUT DIFFERENTIAL Routine 04/09/2025 12:56 PM CDT POC GLUCOSE Routine 04/09/2025 12:54 PM CDT POC GLUCOSE Routine 04/09/2025 7:45 AM CDT TYPE AND SCREEN Stat 04/09/2025 6:15 AM CDT POC GLUCOSE Routine 04/09/2025 4:27 AM CDT COMPREHENSIVE METABOLIC PANEL Routine 04/09/2025 4:20 AM CDT POC GLUCOSE Routine 04/08/2025 11:56 PM CDT POC GLUCOSE Routine 04/08/2025 8:32 PM CDT POC GLUCOSE Routine 04/08/2025 4:21 PM CDT POC GLUCOSE Routine 04/08/2025 12:08 PM CDT POC GLUCOSE Routine 04/08/2025 7:37 AM CDT CBC WITHOUT DIFFERENTIAL Routine 04/08/2025 6:27 AM CDT POC GLUCOSE Routine 04/08/2025 4:21 AM CDT COMPREHENSIVE METABOLIC PANEL Routine 04/08/2025 4:04 AM CDT POC GLUCOSE Routine 04/08/2025 1:16 AM CDT POC GLUCOSE Routine 04/07/2025 7:40 PM CDT URINALYSIS W/REFLEX MICROSCOPIC Routine 04/07/2025 4:28 PM CDT URINE CULTURE Routine 04/07/2025 4:28 PM CDT POC GLUCOSE Routine 04/07/2025 3:18 PM CDT BLOOD CULTURE Routine 04/07/2025 3:14 PM CDT BLOOD CULTURE Routine 04/07/2025 3:14 PM CDT LACTIC ACID Stat 04/07/2025 3:01 PM CDT LIPASE Routine 04/07/2025 3:01 PM CDT PROTIME-INR Stat 04/07/2025 3:01 PM CDT MAGNESIUM LEVEL Stat 04/07/2025 3:01 PM CDT COMPREHENSIVE METABOLIC PANEL Stat 04/07/2025 3:01 PM CDT CBC WITH DIFFERENTIAL Stat 04/07/2025 3:01 PM CDT BLOOD CULTURE Routine 04/07/2025 3:01 PM CDT BLOOD CULTURE Routine 04/07/2025 3:01 PM CDT COMPREHENSIVE METABOLIC PANEL Routine 04/06/2025 11:53 AM CDT TELEMETRY REPORT 04/03/2025 3:03 PM CDT COMPREHENSIVE [...] CHEST PA OR AP 1 VW Routine 03/27/2025 7:37 PM CDT COMPREHENSIVE METABOLIC PANEL Routine 03/26/2025 12:55 PM CDT COMPREHENSIVE METABOLIC PANEL Routine 03/25/2025 12:52 PM CDT COMPREHENSIVE METABOLIC PANEL Routine 03/24/2025 12:53 PM CDT COMPREHENSIVE METABOLIC PANEL Routine 03/23/2025 12:54 PM CDT COMPREHENSIVE METABOLIC PANEL Routine 03/22/2025 12:56 PM CDT from Last 3 Months Results * TELEMETRY REPORT (04/20/2025 3:07 AM CDT) Only the most recent of2 resultswithin the time period is included. us Provider Scanning ECG ORDERABLES Final Result * POC GLUCOSE (04/17/2025 1:02 PM CDT) Only the most recent of45 resultswithin the time period is included. GLUCOSE POC 90 74 - 99 mg/dL 04/17/2025 1:02 PM CDT [facility] SPECIMEN SOURCE, GLUCOSE POC Capillary 04/17/2025 1:02 PM CDT [facility] Blood, whole 04/17/2025 1:02 PM CDT 04/17/2025 1:10 PM CDT us Domenica Nash MD POINT OF CARE TESTING Final Resu lt [facility] CLSTAN # [id number] [id number] [place] [address] * (ABNORMAL) CBC WITH DIFFERENTIAL (04/17/2025 3:49 AM CDT) Only the most recent of10 resultswithin the time period is included. WBC 13.9(H) 4.8 - 10.8 K/uL 04/17/2025 4:34 AM CDT [facility] RBC 2.78(L) 4.20 - 5.40 M/uL 04/17/2025 4:34 AM CDT [facility] HEMOGLOBIN 8.5(L) 12.0 - 16.0 g/dL 04/17/2025 4:34 AM CDT [facility] HEMATOCRIT 27.2(L) 36.0 - 46.0 % 04/17/2025 4:34 AM CDT [facility] MCV 97.8 84.0 - 103.0 fL 04/17/2025 4:34 AM CDT [facility] MCH 30.6 27.0 - 34.0 pg 04/17/2025 4:34 AM CDT [facility] MCHC 31.3 30.0 - 35.0 g/dL 04/17/2025 4:34 AM CDT [facility] PLATELETS 661(H) 140 - 440 K/uL 04/17/2025 4:34 AM CDT [facility] MPV 10.1 8.9 - 12.8 fL 04/17/2025 4:34 AM CDT [facility] RDW 15.2(H) 11.0 - 14.5 % 04/17/2025 4:34 AM CDT [facility] RDW-STDEV 54.2(H) 37.0 - 54.0 fL 04/17/2025 4:34 AM CDT [facility] NEUTROPHILS 78(H) 42 - 75 % 04/17/2025 4:34 AM CDT [facility] LYMPHOCYTES 15(L) 24 - 44 % 04/17/2025 4:34 AM CDT [facility] MONOCYTES 6 2 - 10 % 04/17/2025 4:34 AM CDT [facility] EOSINOPHILS 0 0 - 7 % 04/17/2025 4:34 AM CDT [facility] BASOPHILS 0 0 - 1 % 04/17/2025 4:34 AM CDT [facility] IMMATURE GRANULOCYTES 1 0 - 2 % 04/17/2025 4:34 AM CDT [facility] NEUTROPHIL ABSOLUTE 10.87(H) 2.00 - 8.00 K/uL 04/17/2025 4:34 AM CDT [facility] LYMPHOCYTE ABSOLUTE 2.04 1.20 - 4.00 K/uL 04/17/2025 4:34 AM CDT [facility] MONOCYTE ABSOLUTE 0.85(H) 0.10 - 0.60 K/uL 04/17/2025 4:34 AM CDT [facility] EOSINOPHIL ABSOLUTE 0.04 0.00 - 0.70 K/uL 04/17/2025 4:34 AM CDT [facility] BASOPHILS ABSOLUTE 0.01 0.00 - 0.20 K/uL 04/17/2025 4:34 AM T [facility] IMMATURE GRANULOCYTES ABSOLUTE 0.07 0.00 - 0.10 K/uL 04/17/2025 4:34 AM T [facility] SMEAR REVIEWED: NA - Not Applicable 04/17/2025 4:34 AM T [facility] Blood Venipuncture / Unknown 04/17/2025 3:49 AM CDT 04/17/2025 4:20 AM CDT us Linda Kang MD HEMATOLOGY ORDERABLES Final R esult [facility] CLIA # [id number] [address] [address] [address] [facility] [place] [address] * (ABNORMAL) COMPREHENSIVE METABOLIC PANEL (04/17/2025 3:49 AM CDT) Only the most recent of20 resultswithin the time period is included. Pathologist [facility] SODIUM 138 136 - 145 mmol/L 04/17/2025 5:02 AM [facility] POTASSIUM 3.2(L) 3.5 - 5.1 mmol/L 04/17/2025 5:02 AM [facility] CHLORIDE 105 98 - 107 mmol/L 04/17/2025 5:02 AM [facility] CO2 23 22 - 29 mmol/L 04/17/2025 5:02 AM [facility] CALCIUM 10.0 8.8 - 10.2 mg/dL 04/17/2025 5:02 AM [facility] BUN 11 8 - 23 mg/dL 04/17/2025 5:02 AM [facility] CREATININE 0.70 0.51 - 0.95 mg/dL 04/17/2025 5:02 AM [facility] Comment:The GFR result is no t clinically significant on patients <18 or >70 years of age. GLUCOSE 64(L) 74 - 99 mg/dL 04/17/2025 5:02 AM [facility] TOTAL PROTEIN 5.8(L) 6.4 - 8.3 g/dL 04/17/2025 5:02 AM [facility] ALBUMIN 3.0(L) 3.5 - 5.2 g/dL 04/17/2025 5:02 AM [facility] BILIRUBIN TOTAL 0.4 0.0 - 1.0 mg/dL 04/17/2025 5:02 AM [facility] ALKALINE PHOSPHATASE 130(H) 35 - 104 U/L 04/17/2025 5:02 AM [facility] AST 11 10 - 35 U/L 04/17/2025 5:02 AM [facility] ALT 14 <=35 U/L 04/17/2025 5:02 AM CDT [facility] GFR >60 mL/min/1.7 3 sq meter 04/17/2025 5:02 AM CDT [facility] Comment:eGFR calculated with 2020 CKD-EPI equation. Vegetarian diet, extremely high or low muscle mass, and may affect results. Cystatin C with Glomerular Filtration Rate is a suitable alternative for these patients. ANION GAP 10 9 - 20 mmol/L 04/17/2025 5:02 AM CDT [facility] Blood Venipuncture / Unknown 04/17/2025 3:49 AM CDT 04/17/2025 4:21 AM CDT us Anibal Hdz MD CHEMISTRY ORDERABLES Final Resul t Performing Organization Address [facility] Co de Phone Number [facility] CLIA # [id number] [address] [place] [address] * 2019 NOVEL CORONAVIRUS (COVID-19) PCR DETECTION (04/16/2025 2:11 PM CDT) Pathologist [facility] COVID-19 PCR NOT DETECTED Not Detected 04/16/20 2:49 PM CDT [facility] Upper Respiratory ANTERIOR NARES SWAB / Unknown Collection / Unknown 04/16/2025 2:11 PM CDT 04/16/2025 2:14 PM CDT Narrative [facility] - 04/16/2025 2:49 PM CDT This test has been authorized by the FDA under an Emergency Use Authorization for use by authorized laboratories. This test has been validated in accordance with the FDA's guidance regarding Coronavirus Disease-2019 testing. Optimum specimen types and timing for peak viral levels during infection have not been determined. A negative RT-PCR result does not rule out infection with the 2019-Novel Coronavirus. us Domenica Nash MD MICROBIOLOGY - GENERAL ORDERABLE S Final Result [facility] CLIA # [id number] [address] [address] [place] [address] * (ABNORMAL) C-REACTIVE PROTEIN (04/15/2025 12:12 PM CDT) CRP 24.2(H) 0.0 - 5.0 mg/L 04/15/2025 12:54 PM CDT [facility] Blood Venipuncture / Unknown 04/15/2025 12:12 PM CDT 04/15/2025 12:20 PM CDT Linda Kang MD CHEMISTRY ORDERABLES Final Re sult [facility] CLIA # [id number] [address] [address] * PATHOLOGY (04/09/2025 4:10 PM CDT) CASE REPORT Surgical Pathology Report Case: [id number] Authorizing Provider: Tucker Marroquin MD Collected: 04/09/2025 04:10 PM Ordering Location: [facility] Received: 04/10/2025 07:21 AM Operating Room Pathologist: Mary Rm DO Specimen: Colon, sigmoid 5 3:07 PM CDT [facility] FINAL DIAGNOSIS A. Sigmoid colon, low anterior resection - Perforated diverticulitis with marked acute and chronic inflammation and microabscess formation - Diverticulosis - Mucosal margins viable, free of significant inflammation, one resection margin with mild fibrovascular serosal adhesions - No dysplasia or malignancy identified Mary Rm DO [id number] 5 3:07 PM CDT [facility] at 1507 CDT GROSS DESCRIPTION A. Received in formalin labeled Stubbs -sigmoid colon is a 21 cm unoriented segment of colon. There is a 4 x 3.5 cm area of indurated, hemorrhagic serosa, at the midpoint of the specimen, 8 cm from the closest margin. The center of the indurated area has a 1.8 x 0.2 cm defect (inked green). There is a second, 0.5 cm full-thickness defect, 2.5 cm from one mucosal margin. The serosa near/surrounding both defects is ragged. The second defect is inked blue. The remainder of the serosa is smooth. Opening reveals multiple diverticuli. The mucosa of the midpoint, underlying the first described defect is edematous. No distinct abscess cavity is grossly appreciated. No masses, polyps, or lymph nodes are identified. Credit Coordinator sections are submitted as follows: A1: Mucosal margin closest to first defect, en face A2: Mucosal margin closest to second defect with ragged serosa, en face A3-A4: First defect, entirely submitted A5: Second defect, entirely submitted A6: Diverticulum with edematous mucosa Radha Knight 5 3:07 PM CDT [facility] OPERATIVE PROCEDURE 1: COLON RESECTION LOW LAPAROSCOPIC 2: PROCTOSCOPY 3: SPLENIC FLEXURE MOBILIZATION 4: ABDOMINAL ABSCESS DRAINAGE LAPAROSCOPIC 5 3:07 PM T [facility] CLINICAL INFORMATION Abscess of sigmoid colon due to diverticulitis K57.20-Abscess of sigmoid colon due to diverticulitis 5 3:07 PM T [facility] COMMENT The [employer] voice-activated dictation system may have been used in the creation of this report. Inherent to this system is the possibility of errors in syntax, grammar, punctuation, or other areas that could impact interpretation. If there are interpretive questions about the report, please contact the performing pathologist. Unless gross only is specified in the diagnosis, the microscopic examination substantiates the above cited diagnosis. The performance characteristics of all immunohistochemical stains cited in this report (if any) were determined by the Diagnostic Immunohistochemistry Laboratory of [facility] in compliance with CLIA'88 regulations. Some of these tests rely on the use of analyte specific reagents and are subject to specific labeling requirements by the FDA. All controls show appropriate reactivity. This testing was developed by the Diagnostic Immunohistochemistry Laboratory of [facility]. It has not been cleared or approved by the FDA. The FDA has determined that such clearance or approval is not necessary. 3:07 PM CDT [facility] [employer] [facility] Tissue SIGMOID COLON STRUCTURE / Unknown Collection / Unknown 04/09/2025 4:10 PM CDT 04/10/2025 7:21 AM CDT Tucker Marroquin MD PATHOLOGY/CYTOLOGY ORDERABLES F inal Result [facility] [employer] [facility] CLIA # [id number] [address] [address] [place] [address] * [place] ANES INSERT ENDOTRACHEAL AIRWAY (04/09/2025 2:38 PM CDT) Narrative Tran Sahni CRNA - 04/09/2025 2:38 PM CDT Tran Sahni CRNA 04/09/2025 2:59 PM Airway Date/Time: 04/09/2025 2:38 PM Location: OR Plan: routine intubation Patient Identity Confirmed by: Verbally with patient and armband Airway: not difficult Staffing Performed: CHRIS/CAA Authorized by: Tucker Carey MD Performed by: Tran aShni CRNA Indications and Patient Condition: Indications for Airway Management: Anesthesia Sedation Level: general anesthesia Preoxygenated: yes Patient Position: Sniffing Mask Difficulty Assessment: 1 - vent by mask Plan to extubate at end of case: Yes Final Airway Details: Final Airway Type: Endotracheal airway ETT Cuffed: Yes Technique Used for Successful ETT Placement: Direct laryngoscopy Devices/Methods Used in Placement: Intubating stylet Blade Type: straight blade Blade Size: 2 Insertion Site: Oral ETT Size (mm): 7.0 Measured from: Teeth ETT to Teeth (cm): 21 Tube secured with: Tape Placement Verified by: auscultation, end tidal CO2 and chest rise Cormack-Lehane Classification: Grade I - full view of glottis Number of Attempts at Approach: 1 Additional Procedure Information: atraumatic and dentition unchanged Tucker Carey MD PROCEDURE/MINOR SURGICAL O RDERABLES Final Result * (ABNORMAL) CBC WITHOUT DIFFERENTIAL (04/09/2025 12:56 PM CDT) Only the most recent of3 resultswithin the time period is included. WBC 15.0(H) 4.8 - 10.8 K/uL 04/09/2025 1:06 PM CDT [facility] RBC 2.78(L) 4.20 - 5.40 M/uL 04/09/2025 1:06 PM CDT [facility] HEMOGLOBIN 8.7(L) 12.0 - 16.0 g/dL 04/09/2025 1:06 PM CDT [facility] HEMATOCRIT 27.4(L) 36.0 - 46.0 % 04/09/2025 1:06 PM CDT [facility] MCV 98.6 84.0 - 103.0 fL 04/09/2025 1:06 PM CDT [facility] MCH 31.3 27.0 - 34.0 pg 04/09/2025 1:06 PM CDT [facility] MCHC 31.8 30.0 - 35.0 g/dL 04/09/2025 1:06 PM CDT [facility] PLATELETS 420 140 - 440 K/uL 04/09/2025 1:06 PM CDT [facility] MPV 9.5 8.9 - 12.8 fL 04/09/2025 1:06 PM CDT [facility] RDW 14.9(H) 11.0 - 14.5 % 04/09/2025 1:06 PM CDT [facility] RDW-STDEV 54.6(H) 37.0 - 54.0 fL 04/09/2025 1:06 PM T [facility] Blood Venipuncture / Unknown 04/09/2025 12:56 PM CDT 04/09/2025 1:00 PM CDT Linda Kang MD HEMATOLOGY ORDERABLES Final R esult [facility] CLIA # [id number] [place] [address] * TYPE AND SCREEN (04/09/2025 6:15 AM CDT) Only the most recent of2 resultswithin the time period is included. [facility] B 04/09/2025 7:32 AM CDT [facility] RH (D) TYPE Positive 04/09/2025 7:32 AM CDT [facility] ANTIBODY SCREEN Negative 04/09/2025 7:32 AM CDT [facility] Blood Venipuncture / Unknown 04/09/2025 6:15 AM CDT 04/09/2025 6:29 AM CDT us Tucker Marroquin MD BLOOD BANK ORDERABLES Edited Re sult - Final [facility] CLIA#[id number] [address] [place] [id number] [place] [address] * (ABNORMAL) URINALYSIS WITH REFLEX MICROSCOPIC (04/07/2025 4:28 PM CDT) Only the most recent of2 resultswithin the time period is included. Pathologist [facility] COLOR UA Yellow Pale to Dark Yellow 04/07/2025 4:54 PM CDT [facility] CLARITY UA Clear Clear 04/07/2025 4:54 PM CDT [facility] SPECIFIC GRAVITY UA 1.034 1.003 - 1.035 04/07/2025 4:54 PM T [facility] PH UA 6.5 5.0 - 8.0 04/07/2025 4:54 PM T [facility] LEUKOCYTE ESTERASE UA Negative Negative 04/07/2025 4:54 PM T [facility] NITRITE UA Negative Negative 04/07/2025 4:54 PM T [facility] PROTEIN UA Trace(A) Negative 04/07/2025 4:54 PM CDT [facility] GLUCOSE UA Negative Negative 04/07/2025 4:54 PM CDT [facility] KETONES UA Negative Negative 04/07/2025 4:54 PM CDT [facility] UROBILINOGEN UA <2.0 <2.0 mg/dL 4:54 PM CDT [facility] BILIRUBIN UA Negative Negative 04/07/2025 4:54 PM CDT [facility] BLOOD UA Negative Negative 04/07/2025 4:54 PM CDT [facility] Urine (Urine, indwelling (Rollins) catheter) Collection / Unknown 04/07/2025 4:28 PM CDT 04/07/2025 4:47 PM CDT Zee Yanes MD URINE ORDERABLES Final Resu lt Performing Organization Address [facility]/ZIP Co de Phone Number [facility] CLIA # [id number] [address] [place] [address] * (ABNORMAL) URINE CULTURE (04/07/2025 4:28 PM CDT) Only the most recent of2 resultswithin the time period is included. CULTURE NAKASEOMYCES GLABRATUS(A) LORA MCG/ML 04/10/2025 9:57 AM CDT [facility] Urine (Urine, indwelling (Rollins) catheter) Collection / Unknown 04/07/2025 4:28 PM CDT 04/07/2025 4:47 PM CDT Narrative [facility] - 04/10/2025 9:57 AM CDT For fluconazole susceptibility, refer to Urine Culture collected on 03/28/2025. Zee Yanes MD MICROBIOLOGY - GENERAL ORDE [facility] Final Result Performing Organization Address [facility]/ZIP Co de Phone Number [facility] CLIA # [id number] [address] [place], [place] [address] * BLOOD CULTURE (04/07/2025 3:14 PM CDT) Only the most recent of2 resultswithin the time period is included. [facility] BLOOD CULTURE No growth 04/12/2025 4:51 PM CDT [facility] Blood (Peripheral) Venipuncture / Unknown 04/07/2025 3:14 PM CDT 04/07/2025 3:17 PM CDT Narrative [facility] - 04/12/2025 4:51 PM CDT Specimen processed with suboptimal blood volume collected. Zee Yanes MD MICROBIOLOGY - GENERAL ORDE RABLES Final Result Performing Organization Address City/[facility]/ZIP Co de Phone Number [facility] CLIA # [id number] [address] [place] [address] * LACTIC ACID (04/07/2025 3:01 PM CDT) [facility] LACTIC ACID 1.3 <=2.0 mmol/L 04/07/2025 3:39 PM CDT [facility] Blood Venipuncture / Unknown 04/07/2025 3:01 PM CDT 04/07/2025 3:04 PM CDT Zee Yanes MD CHEMISTRY ORDERABLES Final Result [facility] CLIA # [id number] [id number] [place] [address] * PROTIME-INR (04/07/2025 3:01 PM CDT) Only the most recent of2 resultswithin the time period is included. [facility] PROTIME 14.6 12.7 - 14.9 Seconds 04/07/2025 3:36 PM CDT [facility] INR 1.1 0.8 - 1.2 04/07/2025 3:36 PM CDT [facility] Blood Venipuncture / Unknown 04/07/2025 3:01 PM CDT 04/07/2025 3:18 PM CDT Narrative [facility] - 04/07/2025 3:36 PM CDT Expected Values for INR: DVT/PE Goal INR 2.5; range 2.0 - 3.0 Valve Replacement Tissue Goal INR 2.5; range 2.0 - 3.0 Valve Replacement Mechanical Goal INR 3.0; range 2.5 - 3.5 POST-AL Goal INR 2.5; range 2.0 - 3.0 or Goal INR 3.0; range 2.5 - 3.5 Atrial Fibrillation Goal INR 2.5; range 2.0 - 3.0 Ischemic Stroke Goal INR 2.5; range 2.0 - 3.0 Zee Yanes MD HEMATOLOGY ORDERABLES Final Result [facility] CLIA # [id number] [address] [place] [address] * MAGNESIUM LEVEL (04/07/2025 3:01 PM CDT) Only the most recent of2 resultswithin the time period is included. MAGNESIUM 2.1 1.6 - 2.4 mg/dL 04/07/2025 3:48 PM CDT [facility] Blood Venipuncture / Unknown 04/07/2025 3:01 PM CDT 04/07/2025 3:18 PM CDT Zee Yanes MD CHEMISTRY ORDERABLES Final Result [facility] CLIA # [id number] [facility] [address] [place] [address] * LIPASE (04/07/2025 3:01 PM CDT) LIPASE 51 13 - 60 U/L 04/07/2025 3:48 PM CDT [facility] Blood Venipuncture / Unknown 04/07/2025 3:01 PM CDT 04/07/2025 3:18 PM CDT us Zee Yanes MD CHEMISTRY ORDERABLES Final Result [facility] CLIA # [id number] [facility] [address] [place] [address] * XR PELVIS 1 OR 2 VW [...] noted in the lumbar spine. Procedure Note Abhiijt Abrams MD - 03/30/2025 Exam: XR PELVIS [...] DIAGNOSTIC IMAGING ORDERABLE S Final Result * CT GUIDE PERCUT DRAIN W CATH [...] along the planned trajectory. Next, a 5 Kosovan Yueh needle/catheter combination was advanced using CT fluoroscopy as a guide to the target pelvic abscess and the needle was removed with the catheter remaining in place. Next, through the 5 Kosovan catheter a 035 wire was advanced into the targeted fluid collection. Over the wire 5 Kosovan catheter was removed and a 10 Fr [...] along the planned trajectory. Next, a 5 Kosovan Yueh needle/catheter combination was advanced using CT fluoroscopy as a guide to the target pelvic abscess and the needle was removed with the catheter remaining in place. Next, through the 5 Kosovan catheter a 035 wire was advanced into the targeted fluid collection. Over the wire 5 Kosovan catheter was removed and a 10 Fr [...] enteric caitie(A) 03/31/2025 8:25 AM CDT [facility] GRAM STAIN No Polymorphonuclear WBC 03/31/2025 8:25 AM CDT [facility] GRAM STAIN Mixed caitie with no predominate morphology 03/31/2025 8:25 AM CDT [facility] Abscess ENTIRE PELVIS / Unknown Collection / Unknown 03/28/2025 2:03 PM CDT 03/28/2025 2:32 PM CDT us Jas Gerard MD MICROBIOLOGY - GENERAL ORDERABLE S Final Result [facility] CLIA # [id number] [address] [place] [address] * (ABNORMAL) BASIC METABOLIC PANEL (03/28/2025 5:12 AM CDT) SODIUM 141 136 - 145 mmol/L 03/28/2025 6:48 AM T [facility] POTASSIUM 3.6 3.5 - 5.1 mmol/L 03/28/2025 6:48 AM T [facility] CHLORIDE 111(H) 98 - 107 mmol/L 03/28/2025 6:48 AM T [facility] CO2 22 22 - 29 mmol/L 03/28/2025 6:48 AM T [facility] CALCIUM 9.2 8.8 - 10.2 mg/dL 03/28/2025 6:48 AM T [facility] BUN 7(L) 8 - 23 mg/dL 03/28/2025 6:48 AM T [facility] CREATININE 0.62 0.51 - 0.95 mg/dL 03/28/2025 6:48 AM T [facility] Comment:The GFR result is no t clinically significant on patients <18 or >70 years of age. GLUCOSE 95 74 - 99 mg/dL 03/28/2025 6:48 AM T [facility] GFR >60 mL/min/1.7 3 sq meter 03/28/2025 6:48 AM CDT [facility] Comment:eGFR calculated with 2020 CKD-EPI equation. Vegetarian diet, extremely high or low muscle mass, and may affect results. Cystatin C with Glomerular Filtration Rate is a suitable alternative for these patients. 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: [id number] : 1940 Requested By: Order Number: [id number] Reading MD: Sen Tanner Measurements Intervals Basehor Rate: 70 P: 67 WI: 154 QRS: -35 QRSD: 90 T: 14 QT: 406 QTc: 438 Interpretive Statements Normal sinus rhythm Left axis deviation Abnormal ECG Electronically Signed On 03-30-2025 18:29:13 CDT by Sen Tanner Procedure Note Sen Tanner MD - 03/30/2025 [place] [address] Test Date: 2025-03-28 Pat Name: JAVIER STUBBS Department: 12 Room: [facility] 02 Gender: Female 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: [id number] : 1940 Requested By: Order Number: [id number] Reading MD: Sen Tanner Measurements Intervals [place] Rate: 70 P: 67 WI: 154 QRS: -35 QRSD: 90 T: 14 QT: 406 QTc: 438 Interpretive Statements Normal sinus rhythm Left axis deviation Abnormal ECG Electronically Signed On 03-30-2025 18:29:13 CDT by Sen Tanner Driss Dahl MD ECG ORDERABLES Final Result Performing Organization Address City/[facility]/ZIP Co de Phone Number INTERFACE SYSTEM Refer to clinic/hospital department * EXTRA TUBE (URINE PRINCE) (03/28/2025 12:06 AM CDT) Urine URINE SPECIMEN OBTAINED BY CLEAN CATCH PROCEDURE / Unknown Collection / Unknown 03/28/2025 12:06 AM CDT 03/28/2025 12:12 AM CDT Driss Dahl MD URINE ORDERABLES Final Resul t Performing Organization Address City/[facility] Co de Phone Number [facility] CLIA # [id number] [address] [place] [address] * (ABNORMAL) IRON, TIBC, AND PERCENT SATURATION (03/27/2025 8:24 PM CDT) IRON 42 37 - 145 ug/dL 03/28/2025 12:42 AM CDT [facility] TIBC 144(L) 250 - 450 ug/dL 03/28/2025 12:42 AM CDT [facility] IRON % SATURATION 29 15 - 60 % 03/28/2025 12:42 AM CDT [facility] Blood Venipuncture / Unknown 03/27/2025 8:24 PM CDT 03/27/2025 8:44 PM CDT Driss Dahl MD CHEMISTRY ORDERABLES Final R esult Performing Organization Address City/[facility]/ZIP Co de Phone Number [facility] CLIA # [id number] [address] [facility] [place] [address] * (ABNORMAL) FERRITIN (03/27/2025 8:24 PM CDT) FERRITIN 541.8(H) 13.0 - 150.0 ng/mL 03/28/2025 12:40 AM CDT [facility] Blood Venipuncture / Unknown 03/27/2025 8:24 PM CDT 03/27/2025 8:44 PM CDT Driss Dahl MD CHEMISTRY ORDERABLES Final R esult Performing Organization Address City/[facility] Co de Phone Number [facility] [employer] [facility] CLIA # [id number] [address] [address] * XR CHEST PA OR AP 1 [...] Months Insurance MEDICARE PART A AND B [facility] [employer] Medicare Part D Advance Directives For more information, please contact: [phone] * Full Code (Latest Code Status on File) Date Activated Date Inactivated Comments 04/09/2025 7:23 PM 04/17/2025 8:23 PM * Full Code Date Activated Date Inactivated Comments 04/07/2025 2:27 PM 04/09/2025 7:23 PM * Full Code Date Activated Date Inactivated Comments 03/27/2025 7:16 PM 04/03/2025 4:08 AM
--- NOTE | 2025-04-26 08:13 | W.ED.WEAKNES ---
HPI - Weakness General: Chief complaint: Weakness Stated complaint: lethargy Time Seen by Provider: 04/26/25 07:49 Source: EMS Mode of arrival: EMS Limitations: altered mental status History of Present Illness: 85-year-old female who had recently had a bowel resection from [place] diverticulitis roughly 2 to 3 weeks ago. Patient has been in the shelter over a week per shelter staff she is generally went downhill she has had increased malaise altered mental status has not been having oral intake. Patient here is responsive painful stimuli able to tell me her name but is quite confused and lethargic. No recent fevers no vomiting or diarrhea Related Data Home Medications ?Medication ?Instructions ?Recorded ?Confirmed acetaminophen 325 mg tablet 650 mg PO Q6H PRN Pain 04/07/25 04/26/25 amoxicillin 875 mg-potassium 1 tab PO Q12H 04/07/25 04/26/25 clavulanate 125 mg tablet bisacodyl 10 mg rectal suppository 10 mg UT DAILY PRN Constipation 04/07/25 04/26/25 (Dulcolax (bisacodyl)) hydrocodone 10 mg-acetaminophen 1 tab PO Q4H PRN pain 04/07/25 04/26/25 325 mg tablet prednisone 5 mg tablet 25 mg PO DAILY 04/07/25 04/26/25 Saccharomyces boulardii 250 mg 250 mg PO BID 04/26/25 04/26/25 capsule (Florastor) magnesium hydroxide 400 mg/5 mL 30 ml PO DAILY PRN constipation 04/26/25 04/26/25 oral suspension (Milk of Magnesia) miconazole nitrate 2 % topical 1 applic topical BID 04/26/25 04/26/25 cream ([place] Antifungal) oxycodone-acetaminophen 5 mg-325 2 tab PO Q6H PRN Pain 04/26/25 04/26/25 mg tablet (Percocet) pantoprazole 20 mg tablet,delayed 20 mg PO BID 04/26/25 04/26/25 release prednisone 10 mg tablet 10 mg PO DAILY 04/26/25 04/26/25 prednisone 2.5 mg tablet 2.5 mg PO DAILY 04/26/25 04/26/25 silver (SilvaSorb topical 1 applic topical DAILY 04/26/25 04/26/25 gel,extended release) sodium phosphates 19 gram-7 118 ml UT DAILY PRN Constipation 04/26/25 04/26/25 gram/118 mL enema (Fleet Enema) zinc oxide-cod liver oil 40 % 1 applic topical TID 04/26/25 04/26/25 topical paste (Desitin) Previous Rx's ?Medication ?Instructions ?Recorded acyclovir 5 % topical ointment See Rx Instructions .Route 07/14/24 .COMPLEX #15 grams wheeled walker, with brakes, seat #1 ea 02/24/25 clopidogrel 75 mg tablet 75 mg PO DAILY #90 tabs 03/04/25 Allergies Allergy/AdvReac Type Severity Reaction Status Date / Time No Known Allergies Allergy Verified 02/24/25 09:28 Review of Systems General: Reports: ROS unobtainable due to mental status PFSH ED PFSH: Medical History 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 Chronic narcotic use Restless leg syndrome Chronic left shoulder pain Arthritis Back Pain Doing well on current meds DDD (degenerative disc disease), lumbar Degenerative lumbar spinal stenosis Acquired spondylolisthesis Cervical disc disorder with myelopathy, unspecified cervical region Chronic neck and back pain Pain of right upper extremity Degenerative joint disease of both lower legs Radiculopathy, site unspecified Surgical History History of total left knee replacement Status post carpal tunnel release bilateral in 1979, left 2022 History of total right knee replacement Family History Other CAD (coronary artery disease) Hypertension Social History Smoking and tobacco/nicotine status: never used tobacco/nicotine Second hand smoke exposure: No Alcohol intake: never Substance/Drug Use: never 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 Physical Exam Const: COMMON NORMALS: negative for patient oriented x3 EXAM LIMITATIONS: altered mental status GENERAL APPEARANCE: ill appearing and frail appearing HENMT: COMMON NORMALS: normocephalic and atraumatic HEAD & SCALP: normocephalic and atraumatic Eye: COMMON NORMALS: conjunctivae normal CONJUNCTIVA: Yes conjunctivae normal Neck/C-Spine: COMMON NORMALS: full ROM and supple Chest: COMMONS NORMALS: normal inspection of the chest Resp: COMMON NORMALS: normal respiratory effort, No retractions, No use of accessory muscles and clear to auscultation bilaterally AUSCULTATION: clear to auscultation bilaterally Cardio: COMMON NORMALS: regular rate, regular rhythm and No murmurs present (Cardio) RATE: regular rate RHYTHM: regular rhythm GI: COMMON NORMALS: Normal to inspection, nondistended, normoactive bowel sounds present, Soft to palpation, non-tender and no masses PALPATION: Yes Soft to palpation Extremity: COMMON NORMALS: normal to inspection and full ROM Neuro: COMMON NORMALS: moves all extremities and no focal motor deficits; negative for patient oriented x3 Psych: COMMON NORMALS: mental status grossly normal, Normal thought process present and cooperative THOUGHT PROCESS: Normal thought process present Skin: COMMON NORMALS: no rashes or lesions noted and no wounds GENERAL SKIN EXAM: no rashes or lesions noted Course Vital Signs: Vital signs: Vital Signs Temperature 98.3 F 04/26/25 07:48 Pulse Rate 112 H 04/26/25 10:00 Respiratory Rate 15 04/26/25 10:00 Blood Pressure 125/77 04/26/25 09:30 Pulse Oximetry 95 04/26/25 10:00 Oxygen Delivery Me thod Room Air 04/26/25 07:48 MDM - Weakness Medical Decision Making Patient presents here with altered mental status she does have pneumonia she also has abdominal pain possible cholecystitis on CT scan. I had a long discussion with family they want to make her DNR at this time. They also stated they do not want any advanced surgical procedures done but they do want her admitted and treated with IV antibiotics for her pneumonia at this time we did discuss that possibly a hospice and comfort care but they stated they wanted to trial the antibiotics first. Spoke to hospitalist will admit. Medical Records I reviewed the patient's medical records. Lab Data I reviewed the patient's lab results. 04/26/25 08:24 04/26/25 08:24 Radiology Impressions Abdomen/Pelvis CT 04/26/25 07:51 IMPRESSION: 1. Common bile duct appears more dilated on today's study. Gallbladder appears distended. Obstructive cholangiopathy can not be excluded. Clinical correlation is advised. If indicated, MRCP can be obtained for further evaluation. 2. Small right basilar infiltrate. Finding could represent early pneumonic process. Imaging follow-up until resolution is advised. 3. Stable pancreatic uncinate process hypodense lesion measuring 1.8 x 1.8 cm. 4. No pelvic fluid collection. 5. Small presacral fluid. 6. Mild calcified atherosclerotic changes are seen throughout the abdominal aorta. 7. Severe lumbar spine degenerative changes. COMMENTS: Consistent with the [employer]'s Incidental Findings Committee white paper (J Am Luz Elena Radiol 2018): Any incidental renal lesion less than 1 cm or classified as too small to characterize, or any incidental cystic renal lesion characterized as simple-appearing, is likely benign. No follow-up imaging is recommended for these lesions per consensus recommendations based on imaging criteria. Chest X-Ray 04/26/25 07:51 IMPRESSION: Bibasilar atelectasis with no focal consolidation. Head CT 04/26/25 07:51 IMPRESSION: No large territorial infarct or intracranial bleed. Laboratory Results WBC 19.36 10^3/uL (3.29-11.43) H 04/26/25 08:24 RBC 3.19 10^6/uL (3.85-5.65) L 04/26/25 08:24 Hgb 9.80 g/dL (11.27-16.99) L 04/26/25 08:24 Hct 31.6 % (36-47) L 04/26/25 08:24 MCV 99.1 fl (85-98) H 04/26/25 08:24 MCH 30.7 pg (27-33) 04/26/25 08:24 MCHC 31.0 g/dL (30-55) 04/26/25 08:24 RDW 15.4 % (12.1-15.1) H 04/26/25 08:24 Plt Count 482 10^3/cmm (157-399) H 04/26/25 08:24 MPV 9.7 fL (7.4-10.4) 04/26/25 08:24 Neut % (Auto) 84.1 % 04/26/25 08:24 Lymph % (Auto) 9.7 % 04/26/25 08:24 [place] % (Auto) 5.4 % 04/26/25 08:24 Eos % (Auto) 0.2 % 04/26/25 08:24 Baso % (Auto) 0.1 % 04/26/25 08:24 Neut # (Auto) 16.31 10^3/uL (1.8-7.7) H 04/26/25 08:24 Lymph # (Auto) 1.9 10^3/uL (0.8-4.8) 04/26/25 08:24 [place] # (Auto) 1.0 10^3/uL (0.2-0.9) H 04/26/25 08:24 Eos # (Auto) 0.0 10^3/uL (0.0-0.8) 04/26/25 08:24 Baso # (Auto) 0.0 10^3/uL (0.0-0.1) 04/26/25 08:24 Nucleated RBC % (auto) 0 % 04/26/25 08:24 Nucleated RBCs # 0.0 /100WBC 04/26/25 08:24 PT 13.50 SECONDS (12.1-14.9) 04/26/25 08:24 INR 0.96 (0.8-1.2) 04/26/25 08:24 Sodium 140 mmol/L (136-145) 04/26/25 08:24 Potassium 4.1 mmol/L (3.5-5.1) 04/26/25 08:24 Chloride 105 mmol/L (98-107) 04/26/25 08:24 Carbon Dioxide 28 mmol/L (22-29) 04/26/25 08:24 Anion Gap 11.1 (5-19) 04/26/25 08:24 BUN 10 mg/dL (8-23) 04/26/25 08:24 Creatinine 0.7 mg/dL (0.5-0.9) 04/26/25 08:24 GFR Calculation Not Reportable 04/26/25 08:24 Glucose 85 mg/dL (65-115) 04/26/25 08:24 Calculated Osmolality 288 mOsm/kg (285-295) 04/26/25 08:24 Lactic Acid 1.3 mmol/L (0.5-2.2) 04/26/25 08:24 Calcium 10.1 mg/dL (8.5-10.5) 04/26/25 08:24 Magnesium 2.0 mg/dL (1.7-2.3) 04/26/25 08:24 Total Bilirubin 0.6 mg/dL (0.15-1.2) 04/26/25 08:24 AST 10 U/L (0-32) 04/26/25 08:24 ALT 13 U/L (0-33) 04/26/25 08:24 Alkaline Phosphatase 171 U/L (35-105) H 04/26/25 08:24 Ammonia 17 umol/L (11-51) 04/26/25 08:24 Total Protein 5.9 g/dL (6.6-8.7) L 04/26/25 08:24 Albumin 2.9 g/dL (3.5-5.2) L 04/26/25 08:24 Globulin 3.0 g/dL (1.3-4.6) 04/26/25 08:24 TSH 0.75 uIU/mL (0.27-4.20) 04/26/25 08:24 Urine Color Yellow (Yellow) 04/26/25 09:18 Urine Appearance Clear (CLEAR) 04/26/25 09:18 Urine pH 6.0 (5-7) 04/26/25 09:18 Ur Specific [place] 1.018 (1.005-1.030) 04/26/25 09:18 Urine Protein 1+ (Negative) A 04/26/25 09:18 Urine Glucose (UA) Negative (Normal) 04/26/25 09:18 Urine Ketones Negative (Negative) 04/26/25 09:18 Urine Blood Non-haemolysed trace (Negative) 04/26/25 09:18 Urine Nitrate Negative (Negative) 04/26/25 09:18 Urine Bilirubin Negative (Negative) 04/26/25 09:18 Urine Urobilinogen 0.2 mg/dL (Negative) 04/26/25 09:18 Ur Leukocyte Esterase Negative (Negative) 04/26/25 09:18 Urine RBC 5-10 /hpf (0-2) H 04/26/25 09:18 Urine WBC 5-10 /hpf (0-5) H 04/26/25 09:18 Ur Squamous Epith Cells None /hpf (0-5) 04/26/25 09:18 Amorphous Sediment Not Reportable 04/26/25 09:18 Urine Bacteria Trace /hpf (NONE) 04/26/25 09:18 Urine Yeast 1+ /hpf H 04/26/25 09:18 All radiology interpretation(s) finalized by discharge Discharge Plan Discharge Patient Disposition: Admitted As Inpatient Clinical Impression: Pneumonia, Altered mental status Condition: Stable Coding Level of Care Code ED Raker Buffing Wheel for Rosamaria Johns
[2025-04-26 08:30] LABS: Hematocrit 31.6 % (36-47); Hemoglobin 9.80 g/dL (11.27-16.99); Mean Corpuscular HGB Conc 31.0 g/dL (30-55); Mean Corpuscular Hemoglobin 30.7 pg (27-33); Mean Corpuscular Volume 99.1 fl (85-98); Nucleated Red Blood Cells % 0 %; Platelet Count 482 10^3/cmm (157-399); Red Blood Count 3.19 10^6/uL (3.85-5.65); White Blood Count 19.36 10^3/uL (3.29-11.43)
[2025-04-26 08:42] LABS: INR 0.96 (0.8-1.2); Prothrombin Time 13.50 SECONDS (12.1-14.9)
[2025-04-26] MEDS: morphine 4 mg/mL SDV 1 mL IVP ×2 (08:44→10:36)
[2025-04-26] MEDS: ondansetron 2 mg/ML SDV 2 mL 4 MG IVP (08:44)
[2025-04-26 08:48] LABS: Lactic Sepsis W/Reflex 1.3 mmol/L (0.5-2.2)
[2025-04-26 08:49] LABS: Ammonia 17 umol/L (11-51)
[2025-04-26 08:58] LABS: Alanine Aminotransferase 13 U/L (0-33); Albumin Level 2.9 g/dL (3.5-5.2); Alkaline Phosphatase 171 U/L (35-105); Anion Gap 11.1 (5-19); Aspartate Amino Transferase 10 U/L (0-32); Blood Urea Nitrogen 10 mg/dL (8-23); Calcium 10.1 mg/dL (8.5-10.5); Carbon Dioxide 28 mmol/L (22-29); Chloride 105 mmol/L (98-107); Creatinine Clr Calc Pharmacy 42.0401; Globulin 3.0 g/dL (1.3-4.6); Glucose 85 mg/dL (65-115); Magnesium 2.0 mg/dL (1.7-2.3); Osmolality Calculated 288 mOsm/kg (285-295); Potassium 4.1 mmol/L (3.5-5.1); Sodium 140 mmol/L (136-145); Thyroid Stimulating Hormone 0.75 uIU/mL (0.27-4.20); Total Protein 5.9 g/dL (6.6-8.7)
[2025-04-26 09:26] LABS: Glucose Urine UA Negative (Normal); Nitrate Urine Negative (Negative); Specific Gravity, Urine 1.018 (1.005-1.030)
[2025-04-26] MEDS: iohexol 350 mg/mL 500 mL Btl (per mL) IV (09:31)
[2025-04-26 09:34] LABS: Add Urine Microscopic? YES
[2025-04-26 09:48] LABS: UA Manual Slide Review YES; UA Slide Review UA Slide Review Perf
[2025-04-26] MEDS: HYDROmorphone 0.5 MG/0.5 ML INJ IVP (09:58)
[2025-04-26] MEDS: piperacillin-tazobactam 3.375 GM in sodium chloride 0.9% (plus) 50 ML IV ×2 (10:21→17:07)
[2025-04-26] MEDS: LORazepam 1 MG/0.5 ML injection IVP (10:35)
--- NOTE | 2025-04-26 13:58 | PM.HP ---
Providers/Chief Complaint Admitting Physician: Derik Acevedo MD Primary Care Provider: Sudheer Canchola DO Chief Complaint: lethargy History of Present Illness Gita Stubbs is a 85 year old female presenting [facility]. She recently had a bowel resection for recurrent diverticulitis and has been in rehab for the last several weeks. Over the last week she has had a decrease in appetite and has not had any intake in the last 24 hours. She has increase in her pain and anxiety and has been given medication for this and is currently somnolent on exam, not waking up. Family is from [place] and are not present currently. They are returning in the evening, but per nursing they are planning on going back to [place] soon. The patient is currently full code, however family has been considering hospice with comfort measures recently but not ready to initiate as yet. They have indicated they they do not want interventions currently. Review of Systems General: Reports: ROS unobtainable due to mental status Medications/Allergies Home Medications ?Medication ?Instructions ?Recorded ?Confirmed ?Last Taken ?Type acyclovir 5 % topical ointment See Rx Instructions .Route 07/14/24 04/26/25 04/25/25 Rx .COMPLEX #15 grams wheeled walker, with brakes, seat #1 ea 02/24/25 04/26/25 Unknown Rx clopidogrel 75 mg tablet 75 mg PO DAILY #90 tabs 03/04/25 04/26/25 04/25/25 Rx acetaminophen 325 mg tablet 650 mg PO Q6H PRN Pain 04/07/25 04/26/25 04/06/25 06:45 History amoxicillin 875 mg-potassium 1 tab PO Q12H 04/07/25 04/26/25 04/25/25 History clavulanate 125 mg tablet bisacodyl 10 mg rectal suppository 10 mg HI DAILY PRN Constipation 04/07/25 04/26/25 Unknown History (Dulcolax (bisacodyl)) hydrocodone 10 mg-acetaminophen 1 tab PO Q4H PRN pain 04/07/25 04/26/25 04/06/25 13:45 History 325 mg tablet prednisone 5 mg tablet 25 mg PO DAILY 04/07/25 04/26/25 04/06/25 06:50 History Saccharomyces boulardii 250 mg 250 mg PO BID 04/26/25 04/26/25 04/25/25 History capsule (Florastor) magnesium hydroxide 400 mg/5 mL 30 ml PO DAILY PRN constipation 04/26/25 04/26/25 Unknown History oral suspension (Milk of Magnesia) miconazole nitrate 2 % topical 1 applic topical BID 04/26/25 04/26/25 04/25/25 History cream (Remington Antifungal) oxycodone-acetaminophen 5 mg-325 2 tab PO Q6H PRN Pain 04/26/25 04/26/25 04/25/25 History mg tablet (Percocet) pantoprazole 20 mg tablet,delayed 20 mg PO BID 04/26/25 04/26/25 04/25/25 History release prednisone 10 mg tablet 10 mg PO DAILY 04/26/25 04/26/25 04/25/25 History prednisone 2.5 mg tablet 2.5 mg PO DAILY 04/26/25 04/26/25 Unknown History silver (SilvaSorb topical 1 applic topical DAILY 04/26/25 04/26/25 04/25/25 History gel,extended release) sodium phosphates 19 gram-7 118 ml HI DAILY PRN Constipation 04/26/25 04/26/25 Unknown History gram/118 mL enema (Fleet Enema) zinc oxide-cod liver oil 40 % 1 applic topical TID 04/26/25 04/26/25 04/25/25 History topical paste (Desitin) Allergies Allergy/AdvReac Type Severity Reaction Status Date / Time No Known Allergies Allergy Verified 02/24/25 09:28 PFSH Acute PFSH: Medical History (Updated 04/26/25 @ 14:04 by Derik Acevedo MD) Diverticulitis 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 Chronic narcotic use Restless leg syndrome Chronic left shoulder pain Arthritis Back Pain Doing well on current meds DDD (degenerative disc disease), lumbar Degenerative lumbar spinal stenosis Acquired spondylolisthesis Cervical disc disorder with myelopathy, unspecified cervical region Chronic neck and back pain Pain of right upper extremity Degenerative joint disease of both lower legs Radiculopathy, site unspecified Surgical History (Updated 04/26/25 @ 14:04 by Derik Acevedo MD) History of bowel resection History of total left knee replacement Status post carpal tunnel release bilateral in 1979, left 2022 History of total right knee replacement Family History Other CAD (coronary artery disease) Hypertension Social History Smoking and tobacco/nicotine status: never used tobacco/nicotine Second hand smoke exposure: No Alcohol intake: never Substance/Drug Use: never 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 Vitals/I&O/Wt Last Vital Signs Temp 98.3 F 04/26/25 07:48 Pulse 101 H 04/26/25 12:00 Resp 22 H 04/26/25 11:00 BP 97/35 04/26/25 12:00 Pulse Ox 95 04/26/25 12:00 O2 Del Method Room Air 04/26/25 07:48 04/25/25 04/26/25 04/26/25 22:59 06:59 14:59 Intake Total 1050 / 1050 Balance 1050 / 1050 Weight last 48 hrs Weight 56.699 kg Physical Exam Const: COMMON NORMALS: no acute distress GENERAL APPEARANCE: lethargic OTHER: minimally arousable on exam HENMT: COMMON NORMALS: normocephalic and atraumatic Eye: COMMON NORMALS: Equal, round and reactive pupils present Neck/C-Spine: COMMON NORMALS: no lymphadenopathy Resp: COMMON NORMALS: normal respiratory effort, No retractions and clear to auscultation bilaterally Cardio: RATE: tachycardic RHYTHM: abnormal rhythm GI: COMMON NORMALS: Soft to palpation, non-tender and no masses Extremity: GENERAL: Yes edema (BL LE) Neuro: SENSORIUM/ORIENTATION: Yes somnolent Skin: COMMON NORMALS: no rashes or lesions noted, no wounds and no jaundice Urinary Catheter Management: Rollins Latex: Cath Placed During This Visit: yes Urinary Catheter Date of Insertion: 04/26/25 Urinary Catheter Time of Insertion: 09:25 Data 04/26/25 08:24 04/26/25 08:24 Micro: Microbiology 04/26/25 08:40 Blood Culture - Preliminary Blood SPECIMEN COLLECTED 04/26/25 08:38 Blood Culture - Preliminary Blood SPECIMEN COLLECTED A&P Assessment and plan 1. Altered mental status: 2. Pneumonia: 3. Elevated white blood cell count: Plan: 85 year old female presenting with lethargy AMS/lethargy - worsening mental status in NH after recent bowel resection - decreased appetite, report of no intake in last 24 hours - head CT with no large territorial infarct or intracranial bleed PNA - small right basilar infiltrate on CT - leukocytosis - cont. zosyn Recent acute sigmoid diverticulitis w/ perforation - here at the beginning of March - she was transferred to [facility] in [place] for IR drainage of pelvic abscess Distended gallbladder, dilated CBD Multiple small cystic lesions scattered throughout the pancreatic body, seen also last admission - possibly contiguous with the cystic duct, for example measuring 1.3 x 1.5 cm in the midbody. - At the pancreatic head, note made of lobulated cystic lesion measuring 2.0 x 2.1 cm axial. These may represent IPMNs. A mucinous neoplasm is not excluded of the pancreatic head. - MRCP as outpatient recommended at that time. May consider as inpatient for GB issues on CT - family has indicated that they do not want to pursue interventions at this time. Recent cath 03/22/25 - no significant coronary disease noted on cath. - normal EF - she was started on plavix, may be able to stop this PPx: lovenox Diet: regular Disposition - per family, patient is currently full code however they are contemplating comfort measures and hospice for the patient - PT/OT/CM for discharge planning - home meds restarted, however per nursing she has not been taking recently. - Ongoing discussion with patient and family regarding goals of care. PDMP PDMP Reviewed: Not Reviewed Attestations Medical Necessity Statement*: Inpatient Anticipate > 2 midnights for AMS, lethargy, unable to care for self, consideration of comfort measures. Time Spent in Patient Care: 16 - 35 minutes (>than 50% of time spent in counselling and/or direct pt care on unit). Coding Level of Care Code Acute Code for Chg Fwd Diagnoses Altered mental status R41.82 Pneumonia J18.9 Elevated white blood cell count D72.829
[2025-04-26] MEDS: dextrose 5%-sod chloride 0.45% 1,000 ML 75 ML IV (15:53)
[2025-04-26] MEDS: zinc oxide oint 30 gm 1 APPLIC TOPICAL ×2 (15:55→22:11)
[2025-04-26] MEDS: pantoprazole 40 mg SDV IVP (17:06)
[2025-04-26] MEDS: miconazole 2% topical cream 28 gm 1 APPLIC TOPICAL (17:07)
[2025-04-27] VITALS: BP 107/57; PULSE 115; RESP 17; TEMP 36.8; O2SAT 95
[2025-04-27] MEDS: piperacillin-tazobactam 3.375 GM in sodium chloride 0.9% (plus) 50 ML IV (01:12)
[2025-04-27 04:00] VITALS: BP 113/65; PULSE 95; RESP 19; TEMP 37; O2SAT 96
[2025-04-27 04:48] LABS: Hematocrit 25.2 % (36-47); Hemoglobin 7.60 g/dL (11.27-16.99); Mean Corpuscular HGB Conc 30.2 g/dL (30-55); Mean Corpuscular Hemoglobin 31.0 pg (27-33); Mean Corpuscular Volume 102.9 fl (85-98); Nucleated Red Blood Cells % 0 %; Platelet Count 353 10^3/cmm (157-399); Red Blood Count 2.45 10^6/uL (3.85-5.65); White Blood Count 16.62 10^3/uL (3.29-11.43)
[2025-04-27 05:07] LABS: Anion Gap 11.3 (5-19); Blood Urea Nitrogen 5 mg/dL (8-23); Calcium 8.6 mg/dL (8.5-10.5); Carbon Dioxide 24 mmol/L (22-29); Chloride 109 mmol/L (98-107); Creatinine Clr Calc Pharmacy 42.4065; Glucose 94 mg/dL (65-115); Magnesium 1.7 mg/dL (1.7-2.3); Osmolality Calculated 289 mOsm/kg (285-295); Potassium 3.3 mmol/L (3.5-5.1); Sodium 141 mmol/L (136-145)
[2025-04-27] MEDS: pantoprazole 40 mg SDV IVP (05:10)
[2025-04-27 07:29] VITALS: BP 115/55; PULSE 92; TEMP 36.7; O2SAT 97
[2025-04-27 11:08] VITALS: BP 113/65; PULSE 105; RESP 18; O2SAT 98
[2025-04-27] MEDS: potassium chloride oral liq 20 mEq/15 mL UDC 40 MEQ PO (13:13)
[2025-04-27] MEDS: oxyCODONE-APAP 5-325 mg Tablet 2 TAB PO (13:13)
--- NOTE | 2025-04-27 17:08 | PM.DCS ---
Discharge Providers Date of Admission: 04/26/25 10:15 Date of Discharge: April 27, 2025 Attending Provider at Admission: Derik Acevedo MD Attending Provider at Discharge: Katrin Gonzales MD Primary Care Provider: Sudheer Canchola DO Diagnoses at Discharge Discharge Diagnosis 1. Transient alteration of awareness: Details from hospital stay: History and Hospital course as per the retrospective note and the patient Gita Stubbs is a 85 year old female presenting from [facility] for lethargy. She recently had a bowel resection for recurrent diverticulitis and has been in rehab for the last several weeks. Over the last week she has had a decrease in appetite and has not had any intake in the last 24 hours. She has increase in her pain and anxiety and has been given medication for this and is currently somnolent on exam, not waking up. Family is from [place] and are not present currently. They are returning in the evening, but per nursing they are planning on going back to [place] soon. The patient is currently full code, however family has been considering hospice with comfort measures recently but not ready to initiate as yet. They have indicated they they do not want interventions currently. The patient was seen today in the morning and was doing well. The son and the patient were in the room and discussed about the current situation and further management plan. Son after thorough discussion and discussing the risk and benefit of further management considering her comorbidity, age frailty possibility of poor prognosis and worsening of clinical situation. The son preferred to keep her for home hospice. All the further follow-ups and referrals were provided with adequate medications and analgesics to keep her as comfortable as possible at the time of discharge and also at home. The plan was discussed with the total length with assigned nurses, there was no language barrier while discussing the patient and the family agreed with the concerns and further questions 2. Pneumonia due to infectious organism, unspecified laterality, unspecified part of lun. Bandemia: Reason for Visit Reason for Visit: lethargy Physical Exam Narrative: Physical Exam General: Alert oriented to place and person_ HEENT: Normocephalic, atraumatic, EOMI, breathing without any distress at room air Cardio: Peripheral pulses adequate in volume, regular rate rhythm, normal S1-S2, no murmurs rubs gallops, JVD normal Respiratory: Good bilateral air entry, no wheezes no rhonchi appreciated GI: Abdomen soft, nontender, nondistended, normoactive bowel sounds present all 4 quadrants, Neuro: No acute neurological deficit however the patient seems physically deconditioned Behavior: Appropriate and cooperative with the commands Extremities: Pulses 2+, trace pedal edema, no cyanosis Skin: Visible intact skin with some age-related ecchymosis on the back of the hands and forearms, no other source of active bleeding or remarkable concerning bleeding Urinary Catheter Management: Rollins Latex: Cath Placed During This Visit: yes Reason for Continuing Indwelling Catheter: Accurate Measurement of Urinary Output in Critically Ill Patients Urinary Catheter Date of Insertion: 04/26/25 Urinary Catheter Time of Insertion: 09:25 Discharge Data Studies Completed and Pending Completed Studies During Hospitalization Category Date Time Status CT abdomen pelvis w con* [id number] Stat Cat Scan 04/26/25 07:[address] head wo con* [id number] Stat Cat Scan 04/26/25 07:51 Completed XR chest 1V portable [id number] Stat Exams 04/26/25 07:51 Completed Pending at discharge Category Date Time Status Blood Culture Stat Lab 04/26/25 08:40 Results Radiology Impressions Abdomen/Pelvis CT 04/26/25 07:51 IMPRESSION: 1. Common bile duct appears more dilated on today's study. Gallbladder appears distended. Obstructive cholangiopathy can not be excluded. Clinical correlation is advised. If indicated, MRCP can be obtained for further evaluation. 2. Small right basilar infiltrate. Finding could represent early pneumonic process. Imaging follow-up until resolution is advised. 3. Stable pancreatic uncinate process hypodense lesion measuring 1.8 x 1.8 cm. 4. No pelvic fluid collection. 5. Small presacral fluid. 6. Mild calcified atherosclerotic changes are seen throughout the abdominal aorta. 7. Severe lumbar spine degenerative changes. COMMENTS: Consistent with the [employer]'s Incidental Findings Committee white paper (J Am Luz Elena Radiol 2018): Any incidental renal lesion less than 1 cm or classified as too small to characterize, or any incidental cystic renal lesion characterized as simple-appearing, is likely benign. No follow-up imaging is recommended for these lesions per consensus recommendations based on imaging criteria. Chest X-Ray 04/26/25 07:51 IMPRESSION: Bibasilar atelectasis with no focal consolidation. Head CT 04/26/25 07:51 IMPRESSION: No large territorial infarct or intracranial bleed. Laboratory Results WBC 16.62 10^3/uL (3.29-11.43) H 04/27/25 03:54 RBC 2.45 10^6/uL (3.85-5.65) L 04/27/25 03:54 Hgb 7.60 g/dL (11.27-16.99) L 04/27/25 03:54 Hct 25.2 % (36-47) L 04/27/25 03:54 MCV 102.9 fl (85-98) H 04/27/25 03:54 MCH 31.0 pg (27-33) 04/27/25 03:54 MCHC 30.2 g/dL (30-55) 04/27/25 03:54 RDW 15.5 % (12.1-15.1) H 04/27/25 03:54 Plt Count 353 10^3/cmm (157-399) 04/27/25 03:54 MPV 10.3 fL (7.4-10.4) 04/27/25 03:54 Neut % (Auto) 84.6 % 04/27/25 03:54 Lymph % (Auto) 8.1 % 04/27/25 03:54 [place] % (Auto) 6.4 % 04/27/25 03:54 Eos % (Auto) 0.2 % 04/27/25 03:54 Baso % (Auto) 0.1 % 04/27/25 03:54 Neut # (Auto) 14.07 10^3/uL (1.8-7.7) H 04/27/25 03:54 Lymph # (Auto) 1.4 10^3/uL (0.8-4.8) 04/27/25 03:54 [place] # (Auto) 1.1 10^3/uL (0.2-0.9) H 04/27/25 03:54 Eos # (Auto) 0.0 10^3/uL (0.0-0.8) 04/27/25 03:54 Baso # (Auto) 0.0 10^3/uL (0.0-0.1) 04/27/25 03:54 Nucleated RBC % (auto) 0 % 04/27/25 03:54 Nucleated RBCs # 0.0 /100WBC 04/27/25 03:54 PT 13.50 SECONDS (12.1-14.9) 04/26/25 08:24 INR 0.96 (0.8-1.2) 04/26/25 08:24 Sodium 141 mmol/L (136-145) 04/27/25 03:54 Potassium 3.3 mmol/L (3.5-5.1) L 04/27/25 03:54 Chloride 109 mmol/L (98-107) H 04/27/25 03:54 Carbon Dioxide 24 mmol/L (22-29) 04/27/25 03:54 Anion Gap 11.3 (5-19) 04/27/25 03:54 BUN 5 mg/dL (8-23) L 04/27/25 03:54 Creatinine 0.6 mg/dL (0.5-0.9) 04/27/25 03:54 GFR Calculation Not Reportable 04/27/25 03:54 Glucose 94 mg/dL (65-115) 04/27/25 03:54 Calculated Osmolality 289 mOsm/kg (285-295) 04/27/25 03:54 Lactic Acid 1.3 mmol/L (0.5-2.2) 04/26/25 08:24 Calcium 8.6 mg/dL (8.5-10.5) 04/27/25 03:54 Phosphorus 1.8 mg/dL (2.5-4.5) L 04/27/25 03:54 Magnesium 1.7 mg/dL (1.7-2.3) 04/27/25 03:54 Total Bilirubin 0.6 mg/dL (0.15-1.2) 04/26/25 08:24 AST 10 U/L (0-32) 04/26/25 08:24 ALT 13 U/L (0-33) 04/26/25 08:24 Alkaline Phosphatase 171 U/L (35-105) H 04/26/25 08:24 Ammonia 17 umol/L (11-51) 04/26/25 08:24 Total Protein 5.9 g/dL (6.6-8.7) L 04/26/25 08:24 Albumin 2.9 g/dL (3.5-5.2) L 04/26/25 08:24 Globulin 3.0 g/dL (1.3-4.6) 04/26/25 08:24 TSH 0.75 uIU/mL (0.27-4.20) 04/26/25 08:24 Urine Color Yellow (Yellow) 04/26/25 09:18 Urine Appearance Clear (CLEAR) 04/26/25 09:18 Urine pH 6.0 (5-7) 04/26/25 09:18 Ur Specific Mitchell 1.018 (1.005-1.030) 04/26/25 09:18 Urine Protein 1+ (Negative) A 04/26/25 09:18 Urine Glucose (UA) Negative (Normal) 04/26/25 09:18 Urine Ketones Negative (Negative) 04/26/25 09:18 Urine Blood Non-haemolysed trace (Negative) 04/26/25 09:18 Urine Nitrate Negative (Negative) 04/26/25 09:18 Urine Bilirubin Negative (Negative) 04/26/25 09:18 Urine Urobilinogen 0.2 mg/dL (Negative) 04/26/25 09:18 Ur Leukocyte Esterase Negative (Negative) 04/26/25 09:18 Urine RBC 5-10 /hpf (0-2) H 04/26/25 09:18 Urine WBC 5-10 /hpf (0-5) H 04/26/25 09:18 Ur Squamous Epith Cells None /hpf (0-5) 04/26/25 09:18 Amorphous Sediment Not Reportable 04/26/25 09:18 Urine Bacteria Trace /hpf (NONE) 04/26/25 09:18 Urine Yeast 1+ /hpf H 04/26/25 09:18 Vitals Last Vital Signs Temp 98.1 F 04/27/25 07:29 Pulse 105 H 04/27/25 11:08 Resp 18 04/27/25 11:08 BP 113/65 04/27/25 11:08 Pulse Ox 98 04/27/25 11:08 O2 Del Method Room Air 04/27/25 11:08 Discharge Plan Discharge Patient Disposition: Home Condition: Stable Prescriptions: New multivitamin Tablet 1 tab PO DAILY Qty: 180 3RF Continued (DME) wheeled walker, with brakes, seat See Rx Instructions .Route .MEDSUPPLY Qty: 1 0RF Rx Instructions: As directed acyclovir 5 % ointment See Rx Instructions .ROUTE .COMPLEX Qty: 15 3RF Dose Instruction: APPLY TO THE AFFECTED AREA(S) six times a DAY FOR COLD SORES FOR SEVEN DAYS Rx Instructions: APPLY TOpical to THE AFFECTED AREA(S) 5 times clopidogrel 75 mg tablet 75 mg PO DAILY Qty: 90 3RF acetaminophen 325 mg tablet 650 mg PO Q6H PRN (Reason: Pain) prednisone 5 mg tablet 25 mg PO DAILY bisacodyl [Dulcolax (bisacodyl)] 10 mg Suppository 10 mg NE DAILY PRN (Reason: Constipation) hydrocodone-acetaminophen 10-325 mg tablet 1 tab PO Q4H PRN (Reason: pain) prednisone 10 mg Tablet 10 mg PO DAILY pantoprazole 20 mg tablet,delayed release (DR/EC) 20 mg PO BID prednisone 2.5 mg Tablet 2.5 mg PO DAILY Saccharomyces boulardii [Florastor] 250 mg Capsule 250 mg PO BID miconazole nitrate [Remington Antifungal] 2 % Cream 1 applic TOPICAL BID Rx Instructions: apply twice a day to gluteals oxycodone-acetaminophen [Percocet] 5-325 mg Tablet 2 tab PO Q6H PRN (Reason: Pain) magnesium hydroxide [Milk of Magnesia] 400 mg/5 mL Suspension 30 ml PO DAILY PRN (Reason: constipation ) Fleet Enema 19-7 gram/118 mL Enema 118 ml NE DAILY PRN (Reason: Constipation) SilvaSorb Gel,Extended Release 1 applic TOPICAL DAILY Desitin 40 % Paste 1 applic TOPICAL TID amoxicillin-pot clavulanate 875-125 mg tablet 1 tab PO Q12H 14 Days Qty: 28 0RF Discharge Order = DC NOW: Discharge Order (Routine); Ordered 04/27/25 Ordered By: Katrin Gonzales Referrals: Sudheer Canchola DO [Primary Care Provider, Family Practice] - 04/30/25 10:40 am Referral Note: Discharge Diet: Advance as tolerated and Usual diet Discharge Activity: Resume usual activity, Limit activity as instructed, Wheelchair as instructed and Bedrest Patient Instructions: Opioid Safety, Patient Portal & Dao Instructions Activity Restrictions/Additional Instructions: The patient and the family/son informed about the patient current condition and further management plan however the son preferred to keep her as home hospice. All the benefits and risks were discussed, considering her acuity of illness and poor prognosis considering her age and more comorbidities. The son understands without any language barrier and will proceed with home hospice and no acute intervention or management to be proceeded as inpatient. The family/son wishes respected and proceeded accordingly Discharge Attestations Time Spent in Discharge Care*: greater than 30 min Quality Metrics Clinical Quality Measures [ No reported AMI, CVA or VTE this stay] Coding Level of Care Code 24104 Diagnoses Transient alteration of awareness R40.4 Altered mental status type: transient alteration of awareness Pneumonia due to infectious organism, unspecified laterality, unspecified part of lung J18.9 Pneumonia type: due to unspecified organism Laterality: unspecified laterality Lung location: unspecified part of lung Bandemia D72.825 Leukocytosis type: bandemia Time Spent (min) 38
== END 2025-04-27 16:45 | disposition hospice, home (50) | DRG 194 ==
LOC: ER 10:29 → ER IP 10:31 → MEDSURG 14:42
PROVIDERS: Admitting Provider Internal Medicine; Emergency Provider Emergency Medicine; PCP Family Medicine; Visit Provider Student in an Organized Health Care Education/Training Program
DX: J18.9 Pneumonia, unspecified organism (principal); M50.00 Cervical disc disorder with myelopathy, unspecified cervical region; R41.0 Disorientation, unspecified; D72.825 Bandemia; G25.81 Restless legs syndrome; G89.29 Other chronic pain; M25.512 Pain in left shoulder; M19.90 Unspecified osteoarthritis, unspecified site; M51.369 Other intervertebral disc degeneration, lumbar region without mention of lumbar back pain or lower extremity pain; M43.10 Spondylolisthesis, site unspecified; Z96.653 Presence of artificial knee joint, bilateral; L89.620 Pressure ulcer of left heel, unstageable; L89.222 Pressure ulcer of left hip, stage 2; Z66 Do not resuscitate; Z90.49 Acquired absence of other specified parts of digestive tract; Z79.02 Long term (current) use of antithrombotics/antiplatelets; Z79.891 Long term (current) use of opiate analgesic
CPT/HCPCS: 36415; 51702; 70450; 71045; 74177; 80048; 80053; 81001; 82140; 83605; 83735; 84100; 84443; 85025; 85610; 87040; 93005; 96365; 96367; 96372; 96375; 96376; 97161; 97530; 99285; J1171; J1650; J2060; J2270; J2405; J2470; J2543; J3373; J7030; J7050; J7799; J9999